=== PATIENT | male | born 1980 | race African-American/Black ===

== ENCOUNTER 2016-12-18 15:07 | Emergency (ER) | payer OTHER ==
[2016-12-18 15:40] VITALS: BP 129/94; PULSE 100; RESP 20; TEMP 98.8
--- NOTE | 2016-12-18 15:55 | ED ---
ENT HPI - General Chief complaint: ENT Stated complaint: ENT Time Seen by Provider: 12/18/16 15:40 Source: patient, RN notes reviewed Mode of arrival: ambulatory Limitations: no limitations - History of Present Illness Initial comments: Is a 36-year-old male with a presentation with complaints of sore throat for about a week he also developed fevers chills and sweats especially at night he started developing right sided ear pain yesterday. He does have slight cough with yellow phlegm no chest pain abdominal pain nausea vomiting or other symptoms. No overt rhinorrhea. MD complaint: sore throat, ear pain - Related Data Home Medications Medication Instructions Recorded Confirmed amLODIPine BESYLATE [Norvasc] 5 mg PO DAILY 08/13/16 08/13/16 Previous Rx's Medication Instructions Recorded Erythromycin Ophth Oint [Romycin 1 applic LEFT EYE QID 10 Days 08/13/16 Ophth Oint] Amoxicillin 500 mg PO Q8HR #30 ml 12/18/16 Ibuprofen [Motrin] 800 mg PO Q6HR PRN #20 tab 12/18/16 Allergies Allergy/AdvReac Type Severity Reaction Status Date / Time No Known Allergies Allergy Verified 12/18/16 15:40 Review of Systems ROS Statement: Those systems with pertinent positive or pertinent negative responses have been documented in the HPI. ROS Other: All systems not noted in ROS Statement are negative. Past Medical History Past Medical History: No Reported History, Hypertension Additional Past Medical History / Comment(s): ABSCESS History of Any Multi-Drug Resistant Organisms: None Reported Additional Past Surgical History / Comment(s): LEFT LEG SURGERY R/T TRAUMA, jaw Past Anesthesia/Blood Transfusion Reactions: No Reported Reaction Past Psychological History: No Psychological Hx Reported Smoking Status: Never smoker Past Alcohol Use History: Daily Past Drug Use History: None Reported - Past Family History Mother Family Medical History: Diabetes Mellitus Additional Family Medical History / Comment(s): from sudhakar johnsons syndrome Father Family Medical History: Diabetes Mellitus Additional Family Medical History / Comment(s): from dm complications General Exam - General Exam Comments Initial Comments: This is a well-developed well-nourished awake alert oriented 3 male Limitations: no limitations General appearance: alert, in no apparent distress Head exam: Present: atraumatic, normocephalic, normal inspection Eye exam: Present: normal appearance, PERRL, EOMI. Absent: scleral icterus, conjunctival injection, periorbital swelling ENT exam: Present: mucous membranes moist, other Neck exam: Present: tenderness (Tender lymphadenopathy in the right), lymphadenopathy Respiratory exam: Present: normal lung sounds bilaterally. Absent: respiratory distress, wheezes, rales, rhonchi, stridor Cardiovascular Exam: Present: regular rate, normal rhythm, normal heart sounds. Absent: systolic murmur, diastolic murmur, rubs, gallop, clicks Extremities exam: Present: normal inspection, full ROM, normal capillary refill. Absent: tenderness, pedal edema, joint swelling, calf tenderness Back exam: Present: normal inspection Neurological exam: Present: alert, oriented X3, CN II-XII intact Psychiatric exam: Present: normal affect, normal mood Skin exam: Present: warm, dry, intact, normal color. Absent: rash Course Vital Signs 12/18/16 15:37 Temperature 98.8 F Pulse Rate 100 Respiratory 20 Rate Blood Pressure 129/94 O2 Sat by Pulse 97 Oximetry Medical Decision Making - Medical Decision Making The presentation is consistent with otitis media and tonsillitis patient be placed on appropriate medication. Disposition Clinical Impression: Tonsillitis, Otitis media Disposition: HOME SELF-CARE Condition: Good Instructions: Earache (ED), Tonsillitis (ED), Otitis Media (ED) Prescriptions: Amoxicillin 500 mg PO Q8HR #30 ml Ibuprofen [Motrin] 800 mg PO Q6HR PRN #20 tab PRN Reason: Pain
== END 2016-12-18 16:02 | disposition home or self-care (01) ==
LOC: EC 15:07
DX: J03.90 Acute tonsillitis, unspecified (principal); H66.90 Otitis media, unspecified, unspecified ear; I10 Essential (primary) hypertension; Z79.899 Other long term (current) drug therapy
CPT/HCPCS: 99282

== ENCOUNTER 2017-05-28 05:36 | Emergency (ER) | payer OTHER ==
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
--- NOTE | 2017-05-28 08:14 | XR ---
Right hand HISTORY: Pain 3 views of the right hand No comparisons Bone mineralization, joint spaces and alignment are maintained IMPRESSION: No fracture or dislocation.
--- NOTE | 2017-05-28 08:18 | XR ---
Left RIBS with PA chest x-ray HISTORY: Pain Frontal view of the chest and 4 views of the left ribs submitted and correlated to prior chest x-ray 06/01/2016 Scoliotic curvature of the spine is again noted. Chest shows no airspace disease, pneumothorax, or pl eural effusion. Cardiomediastinal silhouette, pulmonary vascularity and sheba are stable. There is no evident displaced rib fracture. IMPRESSION: Scoliosis, bone scan may be of increased sensitivity.
[2017-05-28] MEDS ORDERED: DIPH,PERTUS(ACELL)TETVAC-LF 0.5 ML VIAL IM ONE (08:24)
[2017-05-28 08:50] VITALS: BP 125/83; PULSE 90; RESP 18; TEMP 98
== END 2017-05-28 08:56 | disposition home or self-care (01) ==
LOC: EC 05:36
DX: S20.212A Contusion of left front wall of thorax, initial encounter (principal); S60.221A Contusion of right hand, initial encounter; S66.801A Unspecified injury of other specified muscles, fascia and tendons at wrist and hand level, right hand, initial encounter; R40.2412 Glasgow coma scale score 13-15, at arrival to emergency department; Z23 Encounter for immunization; V18.4XXA Pedal cycle driver injured in noncollision transport accident in traffic accident, initial encounter; Y92.410 Unspecified street and highway as the place of occurrence of the external cause; Y93.89 Activity, other specified
CPT/HCPCS: 90471; 90715; 99283

== ENCOUNTER 2017-11-05 12:04 | Emergency (ER) | payer OTHER ==
[2017-11-05 12:35] VITALS: BP 129/97; PULSE 90; RESP 16; TEMP 98.2
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
== END 2017-11-05 13:40 | disposition home or self-care (01) ==
LOC: EC 12:04
DX: B86 Scabies (principal); J39.2 Other diseases of pharynx
CPT/HCPCS: 70360; 99283

== ENCOUNTER 2018-02-22 20:10 | Emergency (ER) | payer OTHER ==
[2018-02-22 20:23] VITALS: RESP 18; TEMP 97.3
[2018-02-22] MEDS ORDERED: DIPH,PERTUS(ACELL)TETVAC-LF 0.5 ML VIAL IM ONE (20:41)
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
[2018-02-22 20:59] VITALS: BP 138/87; PULSE 93
[2018-02-22 20:59] LABS: HGB 13.6 gm/dL (13.0-17.5); MCH 29.4 pg (25.0-35.0); MCHC 32.3 g/dL (31.0-37.0); MCV 90.8 fL (80.0-100.0); Mean Platelet Volume 8.6; Platelet Count 134 k/uL (150-450); RBC 4.62 m/uL (4.30-5.90); RDW 12.9 % (11.5-15.5); WBC 4.7 k/uL (3.8-10.6)
== END 2018-02-22 21:19 | disposition home or self-care (01) ==
LOC: EC 20:10
DX: S01.512A Laceration without foreign body of oral cavity, initial encounter (principal); D69.6 Thrombocytopenia, unspecified; Z23 Encounter for immunization; W50.0XXA Accidental hit or strike by another person, initial encounter
CPT/HCPCS: 36415; 85027; 90471; 90715; 99283

== ENCOUNTER → 2018-03-03 | Outpatient (CLI) | payer OTHER ==
--- NOTE | 2018-03-03 16:08 | CT ---
EXAMINATION TYPE: CT abdomen pelvis w con DATE OF EXAM: 03/03/2018 COMPARISON: NONE HISTORY: RLQ to flank pain CT DLP: 502.9 mGycm CONTRAST: CT scan of the abdomen and pelvis is performed with Oral Contrast and with IV Contrast, patient injec kathy with 100 mL of Isovue 300. FINDINGS: LUNG BASES-: No visible nodule. No infiltrate. LIVER/GB: No calcified gallstones. No space occupying hepatic lesion. Biliary tree is of normal ca liber. Mild hepatic steatosis noted. PANCREAS: No inflammation. No distinct mass. SPLEEN: No splenic enlargement. No lesion seen. ADRENALS: No nodule. No thickening. KIDNEYS/BLADDER: No hydronephrosis. No nephrolithiasis. No distinct renal mass. Urinary bladder is not ideally distended however there does appear to be a mild degree of wall thickening. Correlate fo r cystitis. BOWEL: Normal appendix. Normal bowel caliber. No inflammation. GENITAL ORGANS: No gross abnormality. LYMPH NODES: No greater than 1cm abdominal or pelvic lymph nodes are appreciated. AORTA: No significant abnormality. OSSEOUS STRUCTURES: No significant abnormality is seen. OTHER: No significant additional abnormality is seen. IMPRESSION: 1. Correlate for mild urinary bladder cystitis. 2. Fatty liver.
== END | disposition home or self-care (01) ==
LOC: RADCTMAIN 14:10
PROVIDERS: ATTEND Internal Medicine
DX: K76.0 Fatty (change of) liver, not elsewhere classified (principal); R10.31 Right lower quadrant pain
CPT/HCPCS: 74177; Q9967

== ENCOUNTER 2018-06-10 12:01 | Emergency (ER) | payer OTHER ==
[2018-06-10 12:14] VITALS: RESP 18
[2018-06-10 12:59] LABS: Basophils % (A) 1 %; Eosinophils # (A) 0.1 k/uL (0-0.7); Eosinophils % (A) 2 %; HCT 32.5 % (39.0-53.0); HGB 10.3 gm/dL (13.0-17.5); Lymphocytes # (A) 1.5 k/uL (1.0-4.8); Lymphocytes % (A) 34 %; MCH 31.4 pg (25.0-35.0); MCHC 31.5 g/dL (31.0-37.0); MCV 99.6 fL (80.0-100.0); Macrocytosis Slight; Mean Platelet Volume 9.1; Monocytes # (A) 0.4 k/uL (0-1.0); Monocytes % (A) 9 %; Neutrophils # (A) 2.3 k/uL (1.3-7.7); Neutrophils % (A) 52 %; Platelet Count 142 k/uL (150-450); RBC 3.27 m/uL (4.30-5.90); RDW 15.7 % (11.5-15.5); WBC 4.4 k/uL (3.8-10.6)
[2018-06-10 13:14] LABS: ALT 150 U/L (21-72); AST 358 U/L (17-59); Alkaline Phosphatase 261 U/L (38-126); Anion Gap 11 mmol/L; Blood Urea Nitrogen 13 mg/dL (9-20); Carbon Dioxide 29 mmol/L (22-30); Chloride 100 mmol/L (98-107); Glucose 91 mg/dL (74-99); Lipase 229 U/L (23-300); Potassium 4.6 mmol/L (3.5-5.1); Sodium 140 mmol/L (137-145); Total Bilirubin 1.1 mg/dL (0.2-1.3); Total Protein 8.5 g/dL (6.3-8.2)
--- NOTE | 2018-06-10 13:33 | ED ---
Recheck HPI - General Chief Complaint: Recheck/Abnormal Lab/Rx Stated Complaint: EYES YELLOW Time Seen by Provider: 06/10/18 12:16 Source: patient, RN notes reviewed Mode of arrival: ambulatory Limitations: no limitations - History of Present Illness Initial Comments: 37-year-old male presents emergency Department with concerns of possible hepatitis. Patient states that he felt his eyes look more yellow than usual. Patient states that he does drink alcohol on a regular basis states he drinks 3- 4 told was a day. Patient denies any IV drug use. Patient states that he has no other symptoms denies any nausea, vomiting, diarrhea, constipation, headache , dizziness, chest pain or shortness breath. Patient states that he has no history of hepatitis Kory states she's been told he has fatty liver disease. - Related Data Home Medications Medication Instructions Recorded Confirmed No Known Home Medications 06/10/18 06/10/18 Allergies Allergy/AdvReac Type Severity Reaction Status Date / Time No Known Allergies Allergy Verified 06/10/18 12:22 Review of Systems ROS Statement: Those systems with pertinent positive or pertinent negative responses have been documented in the HPI. ROS Other: All systems not noted in ROS Statement are negative. Past Medical History Past Medical History: Hypertension Additional Past Medical History / Comment(s): ABSCESS History of Any Multi-Drug Resistant Organisms: None Reported Additional Past Surgical History / Comment(s): LEFT LEG SURGERY R/T TRAUMA, jaw Past Anesthesia/Blood Transfusion Reactions: No Reported Reaction Past Psychological History: No Psychological Hx Reported Smoking Status: Never smoker Past Alcohol Use History: Daily Past Drug Use History: None Reported - Past Family History Mother Family Medical History: Diabetes Mellitus Additional Family Medical History / Comment(s): from sduhakar johnsons syndrome Father Family Medical History: Diabetes Mellitus Additional Family Medical History / Comment(s): from dm complications General Exam Limitations: no limitations General appearance: alert, in no apparent distress Head exam: Present: atraumatic, normocephalic, normal inspection Eye exam: Present: normal appearance, PERRL, EOMI. Absent: scleral icterus, conjunctival injection, periorbital swelling ENT exam: Present: normal exam, normal oropharynx, mucous membranes moist Neck exam: Present: normal inspection, full ROM. Absent: tenderness, meningismus, lymphadenopathy Respiratory exam: Present: normal lung sounds bilaterally. Absent: respiratory distress, wheezes, rales, rhonchi, stridor Cardiovascular Exam: Present: regular rate, normal rhythm, normal heart sounds. Absent: systolic murmur, diastolic murmur, rubs, gallop, clicks GI/Abdominal exam: Present: soft, normal bowel sounds. Absent: distended, tenderness, guarding, rebound, rigid Skin exam: Present: warm, dry, intact, normal color. Absent: rash Course Vital Signs 06/10/18 12:12 Temperature 98.2 F Pulse Rate 86 Respiratory 18 Rate Blood Pressure 122/85 O2 Sat by Pulse 99 Oximetry Medical Decision Making - Medical Decision Making 37 show male presents emergency department for possible jaundice. Patient's bilirubin is within normal limits though is found to have elevation of his AST and ALT. This most likely is related to alcoholic hepatitis is a daily drinker. He has a negative hepatitis 8 this time. He denies IV drug use. There is pending hepatitis c. Patient did have ultrasound which showed a large gallbladder possible sludge though is having no pain at this time. Patient's advised to seek alcohol rehab. Patient will follow-up with GI return parameters were discussed. - Lab Data Result diagrams: 06/10/18 12:49 06/10/18 12:49 Lab Results 06/10/18 06/10/18 06/10/18 Range/Units 12:45 12:49 12:49 WBC 4.4 (3.8-10.6) k/uL RBC 3.27 L (4.30-5.90) m/uL Hgb 10.3 L (13.0-17.5) gm/dL Hct 32.5 L (39.0-53.0) % MCV 99.6 (80.0-100.0) fL MCH 31.4 (25.0-35.0) pg MCHC 31.5 (31.0-37.0) g/dL RDW 15.7 H (11.5-15.5) % Plt Count 142 L (150-450) k/uL Neutrophils % 52 % Lymphocytes % 34 % Monocytes % 9 % Eosinophils % 2 % Basophils % 1 % Neutrophils # 2.3 (1.3-7.7) k/uL Lymphocytes # 1.5 (1.0-4.8) k/uL Monocytes # 0.4 (0-1.0) k/uL Eosinophils # 0.1 (0-0.7) k/uL Basophils # 0.0 (0-0.2) k/uL Macrocytosis Slight PT 11.4 (9.0-12.0) sec INR 1.2 H (<1.2) APTT 23.9 (22.0-30.0) sec Sodium 140 (137-145) mmol/L Potassium 4.6 (3.5-5.1) mmol/L Chloride 100 (98-107) mmol/L Carbon Dioxide 29 (22-30) mmol/L Anion Gap 11 mmol/L BUN 13 (9-20) mg/dL Creatinine 0.76 (0.66-1.25) mg/dL Est GFR (CKD-EPI)AfAm >90 (>60 ml/min/1.73 sqM) Est GFR (CKD-EPI)NonAf >90 (>60 ml/min/1.73 sqM) Glucose 91 (74-99) mg/dL Calcium 9.0 (8.4-10.2) mg/dL Total Bilirubin 1.1 (0.2-1.3) mg/dL AST 358 H (17-59) U/L ALT 150 H (21-72) U/L Alkaline Phosphatase 261 H (38-126) U/L Total Protein 8.5 H (6.3-8.2) g/dL Albumin 4.0 (3.5-5.0) g/dL Lipase 229 (23-300) U/L Hepatitis A IgM Ab 06/10/18 Range/Units 12:56 WBC (3.8-10.6) k/uL RBC (4.30-5.90) m/uL Hgb (13.0-17.5) gm/dL Hct (39.0-53.0) % MCV (80.0-100.0) fL MCH (25.0-35.0) pg MCHC (31.0-37.0) g/dL RDW (11.5-15.5) % Plt Count (150-450) k/uL Neutrophils % % Lymphocytes % % Monocytes % % Eosinophils % % Basophils % % Neutrophils # (1.3-7.7) k/uL Lymphocytes # (1.0-4.8) k/uL Monocytes # (0-1.0) k/uL Eosinophils # (0-0.7) k/uL Basophils # (0-0.2) k/uL Macrocytosis PT (9.0-12.0) sec INR (<1.2) APTT (22.0-30.0) sec Sodium (137-145) mmol/L Potassium (3.5-5.1) mmol/L Chloride (98-107) mmol/L Carbon Dioxide (22-30) mmol/L Anion Gap mmol/L BUN (9-20) mg/dL Creatinine (0.66-1.25) mg/dL Est GFR (CKD-EPI)AfAm (>60 ml/min/1.73 sqM) Est GFR (CKD-EPI)NonAf (>60 ml/min/1.73 sqM) Glucose (74-99) mg/dL Calcium (8.4-10.2) mg/dL Total Bilirubin (0.2-1.3) mg/dL AST (17-59) U/L ALT (21-72) U/L Alkaline Phosphatase (38-126) U/L Total Protein (6.3-8.2) g/dL Albumin (3.5-5.0) g/dL Lipase (23-300) U/L Hepatitis A IgM Ab NEGATIVE Disposition Clinical Impression: Alcoholic hepatitis Disposition: HOME SELF-CARE Condition: Stable Instructions: Alcoholic Hepatitis (ED) Additional Instructions: Please return to the Emergency Department if symptoms worsen or any other concerns. Is patient prescribed a controlled substance at d/c from ED?: No Referrals: Meaghan Davies MD [Primary Care Provider] - 1-2 days Gonzalo Jules MD [STAFF PHYSICIAN] - 1-2 days Time of Disposition: 14:36
[2018-06-10 13:49] LABS: Hepatitis A AB IgM Index 0.02; Hepatitis A Antibody IgM NEGATIVE
[2018-06-10 13:59] LABS: INR 1.2 (<1.2); Partial Thromboplastin Time 23.9 sec (22.0-30.0); Prothrombin Time 11.4 sec (9.0-12.0)
--- NOTE | 2018-06-10 14:23 | US ---
EXAMINATION TYPE: US gallbladder DATE OF EXAM: 06/10/2018 COMPARISON: Previous dated 10/08/2015 ultrasound abdomen limited, CT abdomen pelvis 03/03/2018 CLINICAL HISTORY: Pain. EXAM MEASUREMENTS: Liver Length: 14.5 cm Gallbladder Wall: 0.1 cm CBD: 0.2 cm Right Kidney: 11.4 x 4.2 x 5.4 cm Pancreas: Obscured by bowel gas Liver: Increased attenuation, decreased visualization of vessels suggestive of fatty infiltrate Gallbladder: appears large with some dependant sludge Evidence for sonographic Hatch's sign: no CBD: wnl Right Kidney: wnl , cortical medullary differentiation is maintained. There is no ascites. IMPRESSION: Changes of hepatic steatosis are again noted. Probable tumefactive sludge within the gall bladder, gallbladder is somewhat enlarged. Hepatobiliary scan may be of benefit.
[2018-06-10 15:06] VITALS: BP 125/61; PULSE 68; TEMP 97
[2018-06-10 18:20] LABS: Hepatitis B Core IgM Non-Reactive (Non-Reactive)
== END 2018-06-10 15:06 | disposition home or self-care (01) ==
LOC: EC 12:01
DX: K70.10 Alcoholic hepatitis without ascites (principal)
CPT/HCPCS: 36415; 76705; 80053; 80074; 83690; 85025; 85610; 85730; 99283

== ENCOUNTER 2018-06-11 18:07 | Emergency (ER) | payer OTHER ==
[2018-06-11 18:14] VITALS: BP 114/73; PULSE 100; RESP 20; TEMP 98.7
--- NOTE | 2018-06-11 18:48 | ED ---
Wound/Laceration HPI - General Chief Complaint: Wound/Laceration Stated Complaint: Lac/Infection on toe Time Seen by Provider: 06/11/18 18:17 Source: patient, RN notes reviewed Mode of arrival: ambulatory Limitations: no limitations - History of Present Illness Initial Comments: 37yo with cc of left third toe pain/laceration. Pt stated that the night after a green party, hanging around girls he woke up with pain in left third toe and cut all the way around the toe. Didnt know how he got it. Thought it would get better, when the pain persisted, increasing for the past 2 days pt presented for evaluation. Pt states tetanus UTD. Pt denied fever, chills, night sweats, loss of ROM of toe, loss of sensation toe. Remainder ROS (-). - Related Data Previous Rx's Medication Instructions Recorded Cephalexin [Keflex] 500 mg PO Q8HR 5 Days #15 cap 06/11/18 Allergies Allergy/AdvReac Type Severity Reaction Status Date / Time No Known Allergies Allergy Verified 06/11/18 18:14 Review of Systems ROS Statement: Those systems with pertinent positive or pertinent negative responses have been documented in the HPI. ROS Other: All systems not noted in ROS Statement are negative. Constitutional: Denies: fever, chills, night sweats Eyes: Denies: vision change Respiratory: Denies: cough, dyspnea Cardiovascular: Denies: chest pain, palpitations, orthopnea Gastrointestinal: Denies: abdominal pain, nausea, vomiting Genitourinary: Denies: urgency, dysuria Musculoskeletal: Reports: myalgia Skin: Reports: as per HPI, lesions Past Medical History Past Medical History: Hypertension Additional Past Medical History / Comment(s): ABSCESS History of Any Multi-Drug Resistant Organisms: None Reported Additional Past Surgical History / Comment(s): LEFT LEG SURGERY R/T TRAUMA, jaw Past Anesthesia/Blood Transfusion Reactions: No Reported Reaction Past Psychological History: No Psychological Hx Reported Smoking Status: Never smoker Past Alcohol Use History: Daily Past Drug Use History: None Reported - Past Family History Mother Family Medical History: Diabetes Mellitus Additional Family Medical History / Comment(s): from sudhakar johnsons syndrome Father Family Medical History: Diabetes Mellitus Additional Family Medical History / Comment(s): from dm complications General Exam - General Exam Comments Initial Comments: General: The patient is awake and alert, in no distress, and does not appear acutely ill. Eye: Pupils are equal, round and reactive to light, extra-ocular movements are intact. No nystagmus. There is normal conjunctiva bilaterally. No signs of icterus. Ears, nose, mouth and throat: There are moist mucous membranes and no oral lesions. Neck: The neck is supple, there is no tenderness or JVD. Cardiovascular: There is a regular rate and rhythm. No murmur, rub or gallop is appreciated. Respiratory: Lungs are clear to auscultation, respirations are non-labored, breath sounds are equal. No wheezes, stridor, rales, or rhonchi. Musculoskeletal: full ROM at DIP and PIP joint of the left third toe, no erythema. There is a hair wrapped around toe causing superficial laceration. Capillary refill <2seconds, no discoloration of the toe. No warmth to palpation. Neurological: A&O x 3. CN II-XII intact, There are no obvious motor or sensory deficits. Coordination appears grossly intact. Speech is normal. Skin: Skin is warm and dry and no rashes or lesions are noted. Psychiatric: Cooperative, appropriate mood & affect, normal judgment. Limitations: no limitations Course Vital Signs 06/11/18 06/11/18 18:12 19:08 Temperature 98.7 F 98.7 F Pulse Rate 100 100 Respiratory 20 20 Rate Blood Pressure 114/73 114/73 O2 Sat by Pulse 98 98 Oximetry Medical Decision Making - Medical Decision Making Hair tournaquette cut from toe. superficial laceration cleansed with idodine and sterile water. Bacitracin applied and wound covered with sterile bandage. Pt neurovascularly intact. No signs of secondary infection at this time, however given laceration is on the foot and was no treated for past 3 days. Pt give watch and wait ABX only to be taken if signs of infection arise and these were discussed with pt. Pt agreed with plan. Pt discharged in stable condition. Case discussed with Dr. Madrid prior to d/c. Disposition Clinical Impression: Hair tourniquet of toe Disposition: HOME SELF-CARE Condition: Good Additional Instructions: Please use medication if develop signs and symptoms discussed. Please follow- up with family doctor in the next 2 days of symptoms have not improved. Please return to emergency room if the symptoms increase or worsen or for any other concerns. Prescriptions: Cephalexin [Keflex] 500 mg PO Q8HR 5 Days #15 cap Is patient prescribed a controlled substance at d/c from ED?: No Referrals: Meaghan Davies MD [Primary Care Provider] - 1-2 days Time of Disposition: 18:47
== END 2018-06-11 19:08 | disposition home or self-care (01) ==
LOC: EC 18:07
DX: S90.445A External constriction, left lesser toe(s), initial encounter (principal); W49.01XA Hair causing external constriction, initial encounter
CPT/HCPCS: 99282

== ENCOUNTER 2018-06-13 01:28 | Emergency (ER) | payer OTHER ==
[2018-06-13 01:57] VITALS: RESP 18
[2018-06-13] MEDS ORDERED: SODIUM CHLORIDE 0.9% 1,000 ML IV STA (02:31)
[2018-06-13 02:57] LABS: Glucose,Whole Blood 107 mg/dL (75-99)
--- NOTE | 2018-06-13 02:58 | ED ---
Seizure HPI - General Chief Complaint: Seizure Stated Complaint: Seizures Time Seen by Provider: 06/13/18 01:41 Source: patient Mode of arrival: ambulatory Limitations: no limitations - History of Present Illness Initial Comments: 37-year-old male patient presents to the emergency department today for evaluation after having 2 episodes of what sounded like seizures. Patient states that his boss witnessed the first episode this morning, states that his limbs went numb and then he became unaware for sure. When he came to his boss told him that he had generalized shaking. Patient states that later the afternoon around 6:00 he was walking around the yard feeling confused and then tripped over the dog and had onset of generalized shaking again. Patient states that the episodes lasted for a couple minutes at most. Patient states afterwards he was foggy with some confusion for a couple of hours. Patient does admit to drinking 4-5 24 oz beers per day, occasionally drinks liquor. Patient states that he was seen and evaluated here a couple of days ago and told that he had elevated liver enzymes so he quit drinking for the last 2 days. Patient does admit to drinking alcohol today to help improve his symptoms. Patient states he is currently feeling well. He denies any current headache, dizziness, blurred vision, or double vision. Denies any numbness or tingling to his arms or legs. Denies any weakness. Denies any history of seizures. Patient denies any recent rash, fever, chills, shortness breath, nausea, vomiting, diarrhea, constipation, back pain, hematuria, dysuria, urinary urgency, urinary frequency, or any other complaints. - Related Data Previous Rx's Medication Instructions Recorded Cephalexin [Keflex] 500 mg PO Q8HR 5 Days #15 cap 06/11/18 chlordiazePOXIDE HCl [Librium] 25 mg PO DIRECTED #15 capsule 06/13/18 Allergies Allergy/AdvReac Type Severity Reaction Status Date / Time No Known Allergies Allergy Verified 06/13/18 03:09 Review of Systems ROS Statement: Those systems with pertinent positive or pertinent negative responses have been documented in the HPI. ROS Other: All systems not noted in ROS Statement are negative. Past Medical History Past Medical History: Hypertension Additional Past Medical History / Comment(s): ABSCESS History of Any Multi-Drug Resistant Organisms: None Reported Additional Past Surgical History / Comment(s): LEFT LEG SURGERY R/T TRAUMA, jaw Past Anesthesia/Blood Transfusion Reactions: No Reported Reaction Past Psychological History: No Psychological Hx Reported Smoking Status: Never smoker Past Alcohol Use History: Daily Past Drug Use History: None Reported - Past Family History Mother Family Medical History: Diabetes Mellitus Additional Family Medical History / Comment(s): from sudhakar johnsons syndrome Father Family Medical History: Diabetes Mellitus Additional Family Medical History / Comment(s): from dm complications General Exam Limitations: no limitations General appearance: alert, in no apparent distress, other (This is a well- developed, well-nourished adult male patient in no acute distress. Vital signs upon presentation are temperature 98.3F, pulse 100, respirations 20, blood pressure 123/78, pulse ox 100% on room air.) Eye exam: Present: normal appearance, PERRL, EOMI. Absent: scleral icterus, conjunctival injection, nystagmus, periorbital swelling ENT exam: Present: normal exam, normal oropharynx, mucous membranes moist Neck exam: Present: normal inspection. Absent: tenderness, meningismus, lymphadenopathy Respiratory exam: Present: normal lung sounds bilaterally. Absent: respiratory distress, wheezes, rales, rhonchi, stridor Cardiovascular Exam: Present: regular rate, normal rhythm, normal heart sounds. Absent: systolic murmur, diastolic murmur, rubs, gallop, clicks GI/Abdominal exam: Present: soft, normal bowel sounds. Absent: distended, tenderness, guarding, rebound, rigid Neurological exam: Present: alert, oriented X3, CN II-XII intact Expanded Speech: Present: fluid speech Cranial nerves: EOM's Intact: Normal, Nystagmus: Normal Motor strength exam: RUE: 5, LUE: 5, RLE: 5, LLE: 5 Psychiatric exam: Present: normal affect Skin exam: Present: warm Course Vital Signs 06/13/18 06/13/18 06/13/18 01:31 01:55 02:55 Temperature 98.3 F Pulse Rate 100 97 95 Respiratory 20 18 18 Rate Blood Pressure 123/78 116/71 107/68 O2 Sat by Pulse 100 100 97 Oximetry Medical Decision Making - Medical Decision Making 37-year-old male patient who admits to chronic alcohol abuse presents to the emergency department today for complaints after having what sounded like 2 seizures throughout the day today. Patient did admit that he had stopped drinking over the last 2 days due to a recent diagnosis of alcoholic hepatitis. Physical examination upon arrival was relatively unremarkable. Patient is neurologically intact. Labs reviewed and did reveal elevated AST at 177, ALT at 106, alk phos 298, ammonia 46. Alcohol level was 180. Patient's liver enzymes are improved from his visit 2 days ago. Patient is negative and the drug screen. Did discuss findings and results with the patient. We did discuss that his symptoms are most likely related to alcohol withdrawal seizures. Did recommend the patient stop drinking given his liver enzymes. Patient did admit that he would like help quitting drinking. States that with his job inpatient rehab is not a option at this time. We did discussed use of Librium for prevention of seizures and help with withdrawal symptoms. He does agree to receive the prescription. He has instructed not to drink while taking this medication. He was given list of outpatient alcohol referrals. He is instructed to follow-up with his primary care physician Dr. Hurd for further evaluation and monitoring of liver enzymes. Return parameters were discussed in detail. He verbalizes understanding and agrees with this plan. - Lab Data Result diagrams: 06/13/18 02:54 06/13/18 02:54 Lab Results 06/13/18 06/13/18 06/13/18 Range/Units 02:54 02:54 02:54 WBC 5.7 (3.8-10.6) k/uL RBC 3.24 L (4.30-5.90) m/uL Hgb 10.4 L (13.0-17.5) gm/dL Hct 33.4 L (39.0-53.0) % MCV 103.1 H (80.0-100.0) fL MCH 32.1 (25.0-35.0) pg MCHC 31.2 (31.0-37.0) g/dL RDW 15.5 (11.5-15.5) % Plt Count 147 L (150-450) k/uL Neutrophils % 52 % Lymphocytes % 33 % Monocytes % 10 % Eosinophils % 2 % Basophils % 0 % Neutrophils # 3.0 (1.3-7.7) k/uL Lymphocytes # 1.9 (1.0-4.8) k/uL Monocytes # 0.6 (0-1.0) k/uL Eosinophils # 0.1 (0-0.7) k/uL Basophils # 0.0 (0-0.2) k/uL Macrocytosis Moderate Sodium 140 (137-145) mmol/L Potassium 4.2 (3.5-5.1) mmol/L Chloride 104 (98-107) mmol/L Carbon Dioxide 25 (22-30) mmol/L Anion Gap 11 mmol/L BUN 10 (9-20) mg/dL Creatinine 0.80 (0.66-1.25) mg/dL Est GFR (CKD-EPI)AfAm >90 (>60 ml/min/1.73 sqM) Est GFR (CKD-EPI)NonAf >90 (>60 ml/min/1.73 sqM) Glucose 95 (74-99) mg/dL POC Glucose (mg/dL) (75-99) mg/dL POC Glu Type Bar And Segment Assembler ID Calcium 9.5 (8.4-10.2) mg/dL Total Bilirubin 1.3 (0.2-1.3) mg/dL AST 177 H (17-59) U/L ALT 106 H (21-72) U/L Alkaline Phosphatase 298 H (38-126) U/L Ammonia 46 H (<30) umol/L Total Protein 8.5 H (6.3-8.2) g/dL Albumin 4.1 (3.5-5.0) g/dL Urine Color Urine Appearance (Clear) Urine pH (5.0-8.0) Ur Specific [place] (1.001-1.035) Urine Protein (Negative) Urine Glucose (UA) (Negative) Urine Ketones (Negative) Urine Blood (Negative) Urine Nitrite (Negative) Urine Bilirubin (Negative) Urine Urobilinogen (<2.0) mg/dL Ur Leukocyte Esterase (Negative) Urine Opiates Screen (NotDetected) Ur Oxycodone Screen (NotDetected) Urine Methadone Screen (NotDetected) Ur Propoxyphene Screen (NotDetected) Ur Barbiturates Screen (NotDetected) U Tricyclic Antidepress (NotDetected) Ur Phencyclidine Scrn (NotDetected) Ur Amphetamines Screen (NotDetected) U Methamphetamines Scrn (NotDetected) U Benzodiazepines Scrn (NotDetected) Urine Cocaine Screen (NotDetected) U Marijuana (THC) Screen (NotDetected) Serum Alcohol 180 mg/dL 06/13/18 06/13/18 Range/Units 02:54 02:54 WBC (3.8-10.6) k/uL RBC (4.30-5.90) m/uL Hgb (13.0-17.5) gm/dL Hct (39.0-53.0) % MCV (80.0-100.0) fL MCH (25.0-35.0) pg MCHC (31.0-37.0) g/dL RDW (11.5-15.5) % Plt Count (150-450) k/uL Neutrophils % % Lymphocytes % % Monocytes % % Eosinophils % % Basophils % % Neutrophils # (1.3-7.7) k/uL Lymphocytes # (1.0-4.8) k/uL Monocytes # (0-1.0) k/uL Eosinophils # (0-0.7) k/uL Basophils # (0-0.2) k/uL Macrocytosis Sodium (137-145) mmol/L Potassium (3.5-5.1) mmol/L Chloride (98-107) mmol/L Carbon Dioxide (22-30) mmol/L Anion Gap mmol/L BUN (9-20) mg/dL Creatinine (0.66-1.25) mg/dL Est GFR (CKD-EPI)AfAm (>60 ml/min/1.73 sqM) Est GFR (CKD-EPI)NonAf (>60 ml/min/1.73 sqM) Glucose (74-99) mg/dL POC Glucose (mg/dL) 107 H (75-99) mg/dL POC Glu Type Bar And Segment Assembler ID Juanita Bullock Calcium (8.4-10.2) mg/dL Total Bilirubin (0.2-1.3) mg/dL AST (17-59) U/L ALT (21-72) U/L Alkaline Phosphatase (38-126) U/L Ammonia (<30) umol/L Total Protein (6.3-8.2) g/dL Albumin (3.5-5.0) g/dL Urine Color Colorless Urine Appearance Clear (Clear) Urine pH 5.5 (5.0-8.0) Ur Specific [place] 1.002 (1.001-1.035) Urine Protein Negative (Negative) Urine Glucose (UA) Negative (Negative) Urine Ketones Negative (Negative) Urine Blood Negative (Negative) Urine Nitrite Negative (Negative) Urine Bilirubin Negative (Negative) Urine Urobilinogen <2.0 (<2.0) mg/dL Ur Leukocyte Esterase Negative (Negative) Urine Opiates Screen Not Detected (NotDetected) Ur Oxycodone Screen Not Detected (NotDetected) Urine Methadone Screen Not Detected (NotDetected) Ur Propoxyphene Screen Not Detected (NotDetected) Ur Barbiturates Screen Not Detected (NotDetected) U Tricyclic Antidepress Not Detected (NotDetected) Ur Phencyclidine Scrn Not Detected (NotDetected) Ur Amphetamines Screen Not Detected (NotDetected) U Methamphetamines Scrn Not Detected (NotDetected) U Benzodiazepines Scrn Not Detected (NotDetected) Urine Cocaine Screen Not Detected (NotDetected) U Marijuana (THC) Screen Not Detected (NotDetected) Serum Alcohol mg/dL - EKG Data -: EKG Interpreted by Me EKG Comments: EKG obtained at 0306 shows normal sinus rhythm with a ventricular rate of 94, [place] interval 124, QRS duration 88, QT 360, QTC 450. No evidence of ST elevation or depression. Disposition Clinical Impression: Alcohol withdrawal seizure Disposition: HOME SELF-CARE Condition: Good Instructions: Alcohol Withdrawal (ED) Additional Instructions: Take medication as directed. Follow up with outpatient alcohol program. Follow up with your primary care physician to monitor liver function/enzymes. Return to the emergency department for any new, worsening, or concerning. Prescriptions: chlordiazePOXIDE HCl [Librium] 25 mg PO DIRECTED #15 capsule Is patient prescribed a controlled substance at d/c from ED?: No Referrals: Meaghan Davies MD [Primary Care Provider] - 1-2 days Time of Disposition: 04:07
[2018-06-13 03:08] LABS: Appearance,Urine Clear (Clear); Bilirubin,Urine Negative (Negative); Blood,Urine Negative (Negative); Color,Urine Colorless; Glucose,Urine (UA) Negative (Negative); Ketones,Urine Negative (Negative); Leukocyte Esterase,Urine Negative (Negative); Nitrite,Urine Negative (Negative); PH, Urine 5.5 (5.0-8.0); Protein,Urine Negative (Negative); Specific Gravity,Urine 1.002 (1.001-1.035); Urobilinogen,Urine <2.0 mg/dL (<2.0)
[2018-06-13 03:13] LABS: Basophils % (A) 0 %; Eosinophils # (A) 0.1 k/uL (0-0.7); Eosinophils % (A) 2 %; HCT 33.4 % (39.0-53.0); HGB 10.4 gm/dL (13.0-17.5); Lymphocytes # (A) 1.9 k/uL (1.0-4.8); Lymphocytes % (A) 33 %; MCH 32.1 pg (25.0-35.0); MCHC 31.2 g/dL (31.0-37.0); MCV 103.1 fL (80.0-100.0); Macrocytosis Moderate; Mean Platelet Volume 8.1; Monocytes # (A) 0.6 k/uL (0-1.0); Monocytes % (A) 10 %; Neutrophils % (A) 52 %; Platelet Count 147 k/uL (150-450); RBC 3.24 m/uL (4.30-5.90); RDW 15.5 % (11.5-15.5); WBC 5.7 k/uL (3.8-10.6)
[2018-06-13 03:18] LABS: ALT 106 U/L (21-72); AST 177 U/L (17-59); Albumin 4.1 g/dL (3.5-5.0); Alkaline Phosphatase 298 U/L (38-126); Amphetamine Screen,Urine Not Detected (NotDetected); Anion Gap 11 mmol/L; Barbiturate Screen,Urine Not Detected (NotDetected); Benzodiazepines Screen,Urine Not Detected (NotDetected); Blood Urea Nitrogen 10 mg/dL (9-20); Calcium 9.5 mg/dL (8.4-10.2); Carbon Dioxide 25 mmol/L (22-30); Chloride 104 mmol/L (98-107); Cocaine Screen,Urine Not Detected (NotDetected); Glucose 95 mg/dL (74-99); Methadone Screen, Urine Not Detected (NotDetected); Opiate Screen,Urine Not Detected (NotDetected); Oxycodone Screen, Urine Not Detected (NotDetected); Phencyclidine Screen,Urine Not Detected (NotDetected); Potassium 4.2 mmol/L (3.5-5.1); Sodium 140 mmol/L (137-145); Total Bilirubin 1.3 mg/dL (0.2-1.3); Total Protein 8.5 g/dL (6.3-8.2); Tricyclic Antidepressant,Urine Not Detected (NotDetected); Urn Cannabinoid Scrn Not Detected (NotDetected)
[2018-06-13 03:21] LABS: Alcohol 180 mg/dL
[2018-06-13 07:18] VITALS: BP 121/83; PULSE 86; TEMP 98.5
== END 2018-06-13 07:18 | disposition home or self-care (01) ==
LOC: EC 01:28
DX: F10.239 Alcohol dependence with withdrawal, unspecified (principal); R56.9 Unspecified convulsions; K70.10 Alcoholic hepatitis without ascites; Y90.6 Blood alcohol level of 120-199 mg/100 ml
CPT/HCPCS: 36415; 93005; 80053; 82140; 85025; 81003; 80306; 99285; 96360; G0480; 80320

== ENCOUNTER 2018-08-11 01:36 | Emergency (ER) | payer OTHER ==
[2018-08-11] MEDS ORDERED: SODIUM CHLORIDE 0.9% 1,000 ML IV STA (02:06)
[2018-08-11 02:21] LABS: Basophils % (A) 1 %; Eosinophils # (A) 0.1 k/uL (0-0.7); Eosinophils % (A) 3 %; HCT 34.2 % (39.0-53.0); HGB 10.6 gm/dL (13.0-17.5); Lymphocytes # (A) 1.5 k/uL (1.0-4.8); Lymphocytes % (A) 37 %; MCH 30.4 pg (25.0-35.0); MCHC 30.9 g/dL (31.0-37.0); MCV 98.2 fL (80.0-100.0); Macrocytosis Slight; Mean Platelet Volume 8.6; Monocytes # (A) 0.4 k/uL (0-1.0); Monocytes % (A) 10 %; Neutrophils # (A) 1.9 k/uL (1.3-7.7); Neutrophils % (A) 45 %; Platelet Count 114 k/uL (150-450); RBC 3.49 m/uL (4.30-5.90); RDW 15.9 % (11.5-15.5); WBC 4.1 k/uL (3.8-10.6)
[2018-08-11 02:28] LABS: Creatine Kinase 89 U/L (55-170)
--- NOTE | 2018-08-11 02:29 | ED ---
Chest Pain HPI - General Chief Complaint: Chest Pain Stated Complaint: Chest Pain Time Seen by Provider: 08/11/18 01:47 Source: patient Mode of arrival: ambulatory Limitations: no limitations - History of Present Illness Initial Comments: 37-year-old male patient with history of daily alcohol use presents to the emergency department today with complaints of intermittent chest pain for the last 2 weeks. Patient states the pain does radiate through to his back. He does become short of breath with this. Patient states the pain comes and goes. States it does worsen when he eats food. Patient states he does occasionally have nausea and vomiting in the mornings. Patient denies any sweats with this. Denies any abdominal pain. Patient denies any recent rash, fever, chills, diarrhea, constipation, back pain, numbness, tingling, dizziness, weakness, hematuria, dysuria, urinary urgency, urinary frequency, headache, visual changes , or any other complaints. Patient denies cigarette use. - Related Data Previous Rx's Medication Instructions Recorded Famotidine [Pepcid] 20 mg PO DAILY #30 tablet 08/11/18 Allergies Allergy/AdvReac Type Severity Reaction Status Date / Time No Known Allergies Allergy Verified 08/11/18 01:42 Review of Systems ROS Statement: Those systems with pertinent positive or pertinent negative responses have been documented in the HPI. ROS Other: All systems not noted in ROS Statement are negative. EKG Findings - EKG Comments: EKG Findings:: EKG obtained at shows normal sinus rhythm with a ventricular rate of 86, NE interval 136, QRS duration 88, QT 368, QTC 440. No evidence of ST elevation or depression. Past Medical History Past Medical History: Hypertension Additional Past Medical History / Comment(s): ABSCESS History of Any Multi-Drug Resistant Organisms: None Reported Additional Past Surgical History / Comment(s): LEFT LEG SURGERY R/T TRAUMA, jaw Past Anesthesia/Blood Transfusion Reactions: No Reported Reaction Past Psychological History: No Psychological Hx Reported Smoking Status: Never smoker Past Alcohol Use History: Abuse, Daily Past Drug Use History: None Reported - Past Family History Mother Family Medical History: Diabetes Mellitus Additional Family Medical History / Comment(s): from sudhakar johnsons syndrome Father Family Medical History: Diabetes Mellitus Additional Family Medical History / Comment(s): from dm complications General Exam Limitations: no limitations General appearance: alert, in no apparent distress, other (This is a well- developed, well-nourished adult male patient in no acute distress. Vital signs upon presentation are temperature 98.0F, pulse 103, respirations 18, blood pressure 132/78, pulse ox 100% on room air.) ENT exam: Present: normal exam, normal oropharynx, mucous membranes moist Respiratory exam: Present: normal lung sounds bilaterally. Absent: respiratory distress, wheezes, rales, rhonchi, stridor Cardiovascular Exam: Present: regular rate, normal rhythm, normal heart sounds. Absent: systolic murmur, diastolic murmur, rubs, gallop, clicks GI/Abdominal exam: Present: soft, normal bowel sounds. Absent: distended, tenderness, guarding, rebound, rigid Neurological exam: Present: alert, oriented X3, CN II-XII intact Psychiatric exam: Present: normal affect, normal mood Skin exam: Present: warm, dry, intact, normal color. Absent: rash Course Vital Signs 08/11/18 08/11/18 01:39 01:45 Temperature 98 F Pulse Rate 103 H Pulse Rate [ 69 Pre Parole Counseling Aide ] Respiratory 18 Rate Blood Pressure 132/78 O2 Sat by Pulse 100 Oximetry Chest Pain MDM - MDM 37-year-old male patient presents to the emergency department today for evaluation of intermittent chest pain over the last 2 weeks. Patient states pain does worsen after eating. Physical examination is unremarkable, abdomen soft and nontender. EKG shows normal sinus rhythm. Labs reviewed and are unremarkable troponin was negative. Patient does have elevated liver enzymes most likely from chronic alcohol abuse. Patient may be suffering from alcohol- induced gastritis, we will treat this with Pepcid. He is instructed to follow- up with gastroenterology for further evaluation. Patient is intoxicated here in the department, alcohol level 220. Patient does not have a ride home at this time we will monitor until he is able to obtain a ride or he becomes sober and able to drive himself. Dr. Wang will take over monitoring patient at 0500. Disposition Clinical Impression: Alcohol abuse, Gastritis Disposition: HOME SELF-CARE Condition: Good Instructions: Abuse of Alcohol (ED), Gastritis (ED) Additional Instructions: Avoid alcohol use. Take medications as directed. Follow up with trimming assembler for recheck as soon as possible. Return here immediately for any new, worsening, or concerning symptoms. Prescriptions: Famotidine [Pepcid] 20 mg PO DAILY #30 tablet Is patient prescribed a controlled substance at d/c from ED?: No Referrals: Meaghan Davies MD [Primary Care Provider] - 1-2 days Cherie Vargas MD [STAFF PHYSICIAN] - 1-2 days Time of Disposition: 04:53
[2018-08-11 02:30] LABS: ALT 116 U/L (21-72); AST 250 U/L (17-59); Albumin 3.9 g/dL (3.5-5.0); Alkaline Phosphatase 290 U/L (38-126); Amylase 111 U/L (30-110); Anion Gap 11 mmol/L; Blood Urea Nitrogen 11 mg/dL (9-20); Calcium 9.1 mg/dL (8.4-10.2); Carbon Dioxide 26 mmol/L (22-30); Chloride 101 mmol/L (98-107); Glucose 106 mg/dL (74-99); Lipase 238 U/L (23-300); Potassium 4.4 mmol/L (3.5-5.1); Sodium 138 mmol/L (137-145); Total Bilirubin 1.4 mg/dL (0.2-1.3); Total Protein 8.7 g/dL (6.3-8.2)
[2018-08-11 02:31] LABS: INR 1.3 (<1.2); Partial Thromboplastin Time 23.1 sec (22.0-30.0); Prothrombin Time 11.9 sec (9.0-12.0)
--- NOTE | 2018-08-11 02:31 | XR ---
EXAMINATION TYPE: XR chest 2V DATE OF EXAM: 08/11/2018 COMPARISON: 06/01/2016 HISTORY: Chest pain TECHNIQUE: Frontal and lateral views of the chest are obtained. FINDINGS: Heart and mediastinum are normal. Lungs are clear. Diaphragm is normal. There is mild thor acic dextroscoliosis. There are chest leads. IMPRESSION: No cardiopulmonary disease. No change.
[2018-08-11 02:35] LABS: Alcohol 220 mg/dL
[2018-08-11 02:41] LABS: Creatine Kinase MB 0.3 ng/mL (0.0-2.4); Troponin I <0.012 ng/mL (0.000-0.034)
[2018-08-11 10:18] VITALS: BP 128/84; PULSE 78; RESP 18; TEMP 98.7
== END 2018-08-11 09:52 | disposition home or self-care (01) ==
LOC: EC 01:36
DX: K29.70 Gastritis, unspecified, without bleeding (principal); F10.10 Alcohol abuse, uncomplicated; R74.8 Abnormal levels of other serum enzymes; R07.9 Chest pain, unspecified
CPT/HCPCS: 36415; 93005; 80053; 82150; 82550; 82553; 83690; 83735; 84484; 85025; 85610; 85730; 71046; 99285; 96360; G0480; 80320

== ENCOUNTER 2021-05-05 23:06 | Observation (INO) | payer OTHER ==
--- NOTE | 2021-05-06 00:09 | CT ---
EXAMINATION TYPE: CT brain cspine wo con DATE OF EXAM: 05/05/2021 COMPARISON: None HISTORY: ETOH/head injury CT DLP: 1319.9 mGycm Automated exposure control for dose reduction was used. Ventricles have normal size. There is no mass effect nor midline shift. There is no sign of intracran ial hemorrhage. The calvarium is intact. Skull base is intact. There is normal aeration of the mastoi d sinuses. Cervical vertebra have normal spacing and alignment. Posterior elements are intact. Facet joints are intact. Prevertebral soft tissues are intact. IMPRESSION: Negative CT scan of the cervical spine. Negative CT scan of the brain.
[2021-05-06 00:42] LABS: HCT 39.5 % (39.0-53.0); HGB 12.6 gm/dL (13.0-17.5); MCHC 31.9 g/dL (31.0-37.0); MCV 100.3 fL (80.0-100.0); Mean Platelet Volume 8.2; Platelet Count 173 k/uL (150-450); RBC 3.94 m/uL (4.30-5.90); RDW 12.3 % (11.5-15.5)
[2021-05-06 01:06] LABS: ALT 60 U/L (4-49); AST 171 U/L (17-59); African American GFR (CKD) >90 (>60 ml/min/1.73 sqM); Alkaline Phosphatase 439 U/L (38-126); Anion Gap 12 mmol/L; Blood Urea Nitrogen 14 mg/dL (9-20); Calcium 8.8 mg/dL (8.4-10.2); Carbon Dioxide 23 mmol/L (22-30); Chloride 108 mmol/L (98-107); Glucose 91 mg/dL (74-99); Non-African American GFR(CKD) >90 (>60 ml/min/1.73 sqM); Potassium 4.4 mmol/L (3.5-5.1); Sodium 143 mmol/L (137-145); Total Bilirubin 0.6 mg/dL (0.2-1.3); Total Protein 8.5 g/dL (6.3-8.2)
--- NOTE | 2021-05-06 01:19 | ED ---
Alcohol HPI - General Chief Complaint: Alcohol Stated Complaint: ETOH Time Seen by Provider: 05/05/21 23:21 Source: patient, EMS Mode of arrival: EMS Limitations: no limitations - History of Present Illness Initial Comments: 40-year-old male presents to the mental department for alcohol intoxication. Patient reports he was out on a boat night and had multiple beers and liquor beverages and wine. Patient was brought to the ED via EMS after he was found hitting the ground. Patient reports he feels slightly nauseous but reports also having his head. Questionable loss of consciousness. Denies any other complaints. - Related Data Previous Rx's Medication Instructions Recorded Famotidine [Pepcid] 20 mg PO DAILY #30 tablet 08/11/18 Allergies Allergy/AdvReac Type Severity Reaction Status Date / Time No Known Allergies Allergy Verified 08/11/18 01:42 Review of Systems ROS Statement: Those systems with pertinent positive or pertinent negative responses have been documented in the HPI. ROS Other: All systems not noted in ROS Statement are negative. Past Medical History Past Medical History: Hypertension Additional Past Medical History / Comment(s): ABSCESS History of Any Multi-Drug Resistant Organisms: None Reported Additional Past Surgical History / Comment(s): LEFT LEG SURGERY R/T TRAUMA, jaw Past Anesthesia/Blood Transfusion Reactions: No Reported Reaction Past Psychological History: No Psychological Hx Reported Smoking Status: Former smoker Past Alcohol Use History: Abuse, Daily Past Drug Use History: None Reported - Past Family History Mother Family Medical History: Diabetes Mellitus Additional Family Medical History / Comment(s): from sudhakar johnsons syndrome Father Family Medical History: Diabetes Mellitus Additional Family Medical History / Comment(s): from dm complic ations General Exam Limitations: no limitations General appearance: alert, in no apparent distress, appears intoxicated Head exam: Present: atraumatic, normocephalic, normal inspection. Absent: other (Negative Bradley sign, raccoon eyes, hemotympanum.) Eye exam: Present: normal appearance, PERRL, EOMI, nystagmus (Lateral lateral) Pupils: Present: normal accommodation ENT exam: Present: normal exam, normal oropharynx, mucous membranes moist, TM's normal bilaterally, normal external ear exam Neck exam: Present: normal inspection, full ROM. Absent: tenderness, meningismus Respiratory exam: Present: normal lung sounds bilaterally. Absent: respiratory distress Cardiovascular Exam: Present: regular rate, normal rhythm, normal heart sounds. Absent: systolic murmur GI/Abdominal exam: Present: soft. Absent: guarding, rebound Extremities exam: Present: normal inspection, full ROM, normal capillary refill. Absent: tenderness, pedal edema, joint swelling Back exam: Present: normal inspection, full ROM. Absent: tenderness, CVA tenderness (R), CVA tenderness (L), muscle spasm, paraspinal tenderness Neurological exam: Present: alert Psychiatric exam: Present: normal affect, normal mood Skin exam: Present: warm, dry, intact, normal color Course Vital Signs 05/05/21 05/06/21 05/06/21 23:07 00:21 01:38 Temperature 96.8 F L Pulse Rate 113 H 110 H 99 Respiratory 16 18 16 Rate Blood Pressure 126/77 118/74 99/66 O2 Sat by Pulse 93 L 93 L 92 L Oximetry Medical Decision Making - Medical Decision Making 40-year-old male presents to the mental department for alcohol intoxication. on physical examination, patient is clearly intoxicated. However, he is very cooperative. No obvious signs of acute injuries on exam. on examination. blood alcohol 395. CIWA assessed. Ativan protocol. patient will be admitted for medical managment. case discussed with physician. admittting is Dr jaramillo - Lab Data Result diagrams: 05/05/21 23:49 05/05/21 23:49 Lab Results 05/05/21 05/05/21 Range/Units 23:49 23:49 WBC 6.0 (3.8-10.6) k/uL RBC 3.94 L (4.30-5.90) m/uL Hgb 12.6 L (13.0-17.5) gm/dL Hct 39.5 (39.0-53.0) % MCV 100.3 H (80.0-100.0) fL MCH 32.0 (25.0-35.0) pg MCHC 31.9 (31.0-37.0) g/dL RDW 12.3 (11.5-15.5) % Plt Count 173 (150-450) k/uL MPV 8.2 Sodium 143 (137-145) mmol/L Potassium 4.4 (3.5-5.1) mmol/L Chloride 108 H (98-107) mmol/L Carbon Dioxide 23 (22-30) mmol/L Anion Gap 12 mmol/L BUN 14 (9-20) mg/dL Creatinine 0.70 (0.66-1.25) mg/dL Est GFR (CKD-EPI)AfAm >90 (>60 ml/min/1.73 sqM) Est GFR (CKD-EPI)NonAf >90 (>60 ml/min/1.73 sqM) Glucose 91 (74-99) mg/dL Calcium 8.8 (8.4-10.2) mg/dL Total Bilirubin 0.6 (0.2-1.3) mg/dL AST 171 H (17-59) U/L ALT 60 H (4-49) U/L Alkaline Phosphatase 439 H (38-126) U/L Total Protein 8.5 H (6.3-8.2) g/dL Albumin 4.0 (3.5-5.0) g/dL Serum Alcohol 395 H* mg/dL Disposition Clinical Impression: Alcoholic intoxication Disposition: ADMITTED IP TO THIS HOSP Condition: Fair Is patient prescribed a controlled substance at d/c from ED?: No Referrals: Meaghan Davies MD [Primary Care Provider] - 1-2 days Time of Disposition: 02:05
[2021-05-06 01:53] LABS: Alcohol 395 mg/dL
[2021-05-06] MEDS ORDERED: THIAMINE 100 MG/ML 2 ML VIAL IM STA (01:58)
[2021-05-06] MEDS ORDERED: LORazepam 2 MG/ML INJ IV PRN ×3 (01:58)
[2021-05-06] MEDS ORDERED: NALOXONE 0.4 MG/ML 1 ML VIAL IV PRN (01:59)
[2021-05-06 05:30] LABS: Band Neutrophils % 3 %; Eosinophils # (M) 0.06 k/uL (0-0.7); Lymphocytes # (M) 3.18 k/uL (1.0-4.8); Monocytes # (M) 0.36 k/uL (0-1.0); Neutrophils % (M) 37 %; Nucleated Red Blood Cells 0 /100 WBC (0-0); Total Cells Counted 100
[2021-05-06] MEDS ORDERED: PANTOPRAZOLE 40 MG/10 ML VIAL IVP SCH (10:30)
--- NOTE | 2021-05-06 11:36 | P.HPIM ---
History of Present Illness Patient is a pleasant 40-year-old male was admitted for alcohol intoxication. Patient does drink quite a bit of alcohol every single day had multiple beers and hard liquor patient did have withdrawals in the past patient is willing to quit alcohol. Patient was nauseous and patient denied any smoking history patient does have macrocytosis. Patient does have elevated liver enzymes with AST 171 and ALP of 60 consistent with alcoholic hepatitis. Patient is alert oriented 3 at this time. REVIEW OF SYSTEMS: CONSTITUTIONAL: No fever, no malaise, no fatigue. HEENT: No recent visual problems or hearing problems. Denied any sore throat. CARDIOVASCULAR: No chest pain, orthopnea, PND, no palpitations, no syncope. PULMONARY: No shortness of breath, no cough, no hemoptysis. GASTROINTESTINAL: No diarrhea, no nausea, no vomiting, no abdominal pain. NEUROLOGICAL: No headaches, no weakness, no numbness. HEMATOLOGICAL: Denies any bleeding or petechiae. GENITOURINARY: Denies any burning micturition, frequency, or urgency. MUSCULOSKELETAL/RHEUMATOLOGICAL: Denies any joint pain, swelling, or any muscle pain. ENDOCRINE: Denies any polyuria or polydipsia. The rest of the 14-point review of systems is negative. PHYSICAL EXAMINATION: GENERAL: The patient is alert and oriented x3, not in any acute distress. Well d eveloped, well nourished. HEENT: Pupils are round and equally reacting to light. EOMI. No scleral icterus. No conjunctival pallor. Normocephalic, atraumatic. No pharyngeal erythema. No thyromegaly. CARDIOVASCULAR: S1 and S2 present. No murmurs, rubs, or gallops. PULMONARY: Chest is clear to auscultation, no wheezing or crackles. ABDOMEN: Soft, nontender, nondistended, normoactive bowel sounds. No palpable organomegaly. MUSCULOSKELETAL: No joint swelling or deformity. EXTREMITIES: No cyanosis, clubbing, or pedal edema. NEUROLOGICAL: Gross neurological examination did not reveal any focal deficits. SKIN: No rashes. Assessment and plan -Alcohol abuse: Counseling was provided patient is willing to quit alcohol social service liaison will be consulted -Acute alcoholic hepatitis expected to improve -Alcohol withdrawal patient will be monitored tonight for any alcohol withdrawal if he doesn't have any withdrawals patient will be discharged tomorrow -Macrocytosis secondary to chronic alcoholism, patient is on thiamine multivitamin supplementation at this time. DVT prophylaxis: Lovenox Past Medical History Past Medical History: Hypertension Additional Past Medical History / Comment(s): ABSCESS History of Any Multi-Drug Resistant Organisms: None Reported Additional Past Surgical History / Comment(s): LEFT LEG SURGERY R/T TRAUMA, jaw Past Anesthesia/Blood Transfusion Reactions: No Reported Reaction Past Psychological History: No Psychological Hx Reported Smoking Status: Former smoker Past Alcohol Use History: Abuse, Daily Past Drug Use History: None Reported - Past Family History Mother Family Medical History: Diabetes Mellitus Additional Family Medical History / Comment(s): from sudhakar johnsons syndrome Father Family Medical History: Diabetes Mellitus Additional Family Medical History / Comment(s): from dm complications Medications and Allergies Home Medications Medication Instructions Recorded Confirmed Type Daily-Sae 1 tab PO DAILY 05/06/21 05/06/21 History Folic Acid 1 mg PO DAILY 05/06/21 05/06/21 History Thiamine [Vitamin B-1] 100 mg PO DAILY 05/06/21 05/06/21 History Allergies Allergy/AdvReac Type Severity Reaction Status Date / Time No Known Allergies Allergy Verified 05/06/21 09:35 Physical Exam Vitals: Vital Signs Temp Pulse Pulse Resp BP BP Pulse Ox 05/06/21 08:10 98.7 F 87 12 116/77 94 L 05/06/21 04:22 97.6 F 93 15 108/70 94 L 05/06/21 03:17 98 F 92 16 109/72 94 L 05/06/21 01:38 99 16 99/66 92 L 05/06/21 00:21 110 H 18 118/74 93 L 05/05/21 23:07 96.8 F L 113 H 16 126/77 93 L Intake and Output 05/05/21 05/06/21 05/06/21 22:59 06:59 14:59 Other: # Voids 1 Weight 74.843 kg Results CBC & Chem 7: 05/05/21 23:49 05/05/21 23:49 Labs: Abnormal Lab Results - Last 24 Hours (Table) 05/05/21 05/05/21 Range/Units 23:49 23:49 RBC 3.94 L (4.30-5.90) m/uL Hgb 12.6 L (13.0-17.5) gm/dL MCV 100.3 H (80.0-100.0) fL Chloride 108 H (98-107) mmol/L AST 171 H (17-59) U/L ALT 60 H (4-49) U/L Alkaline Phosphatase 439 H (38-126) U/L Total Protein 8.5 H (6.3-8.2) g/dL Serum Alcohol 395 H* mg/dL Thrombosis Risk Factor Assmnt - Choose All That Apply Any of the Below Risk Factors Present?: No Other Risk Factors: No Other congenital or acquired thrombophilia - If yes, enter type in comment: No Thrombosis Risk Factor Assessment Level: Very Low Risk
[2021-05-06] MEDS: SODIUM CHLORIDE 0.9% 1,000 ML IV SCH ×2 (12:26→22:00)
[2021-05-06] MEDS: THIAMINE 100 MG TAB PO SCH (17:02)
[2021-05-07] MEDS ORDERED: PANTOPRAZOLE 40 MG TABLET PO SCH (07:30)
[2021-05-07] MEDS: SODIUM CHLORIDE 0.9% 1,000 ML IV SCH ×2 (07:59→14:04)
[2021-05-07 08:07] VITALS: TEMP 98.1
[2021-05-07] MEDS: THIAMINE 100 MG TAB PO SCH ×2 (08:33→15:54)
--- NOTE | 2021-05-07 08:42 | P.DS ---
Providers Date of admission: 05/06/21 03:09 Expected date of discharge: 05/07/21 Attending physician: Shahram Mobley Primary care physician: Samson Stoner [facility] [place] Course: Patient is a pleasant 40-year-old male was admitted for alcohol intoxication. Patient does drink quite a bit of alcohol every single day had multiple beers and hard liquor patient did have withdrawals in the past patient is willing to quit alcohol. Patient was nauseous and patient denied any smoking history patient does have macrocytosis. Patient does have elevated liver enzymes with AST 171 and ALP of 60 consistent with alcoholic hepatitis. Patient is alert oriented 3 at this time. 05/07/2021 Patient was not requiring any Ativan overnight, having minimal to no withdrawal symptoms at this point. Patient has stated that he does want to quit alcohol, he is concerned about having further withdrawal symptoms at home, for which we will give him a short prescription of Librium. He was educated not to take alcohol and Librium together due to the synergistic sedating effects. BP 150/85, mild elevation is most likely due to his recent cessation of alcohol. No fever. REVIEW OF SYSTEMS: CONSTITUTIONAL: No fever, no malaise, no fatigue. CARDIOVASCULAR: No chest pain, orthopnea, PND, no palpitations, no syncope. PULMONARY: No shortness of breath, no cough, no hemoptysis. GASTROINTESTINAL: No diarrhea, no nausea, no vomiting, no abdominal pain. NEUROLOGICAL: No headaches, no weakness, no numbness. GENITOURINARY: Denies any burning micturition, frequency, or urgency. The rest of the 14-point review of systems is negative. PHYSICAL EXAMINATION: GENERAL: The patient is alert and oriented x3, not in any acute distress. Well developed, well nourished. HEENT: Pupils are round and equally reacting to light. EOMI. No scleral icterus. No conjunctival pallor. Normocephalic, atraumatic. No pharyngeal erythema. No thyromegaly. CARDIOVASCULAR: S1 and S2 present. No murmurs, rubs, or gallops. PULMONARY: Chest is clear to auscultation, no wheezing or crackles. ABDOMEN: Soft, nontender, nondistended, normoactive bowel sounds. No palpable organomegaly. MUSCULOSKELETAL: No joint swelling or deformity. EXTREMITIES: No cyanosis, clubbing, or pedal edema. NEUROLOGICAL: Gross neurological examination did not reveal any focal deficits. SKIN: No rashes. Assessment and plan -Alcohol abuse: Counseling was provided patient is willing to quit alcohol. Social work following. No withdrawal symptoms overnight, did not require Ativan. His BP is mildly elevated, this is likely due to the recent cessation of alcohol we will hold off on giving antihypertensives at this time. Patient given prescription for short course of Librium, he was counseled not to take Librium and alcohol together due to her synergistic sedating effects, patient verbalized understanding. -Acute alcoholic hepatitis expected to improve -Alcohol withdrawal: Having minimal to no withdrawal symptoms at this point as mentioned above, going home on Librium as mentioned. -Macrocytosis secondary to chronic alcoholism: We will continue on thiamine, folic acid and multivitamin at discharge. Follow-up with PCP in one week. Patient Condition at Discharge: Fair Plan - Discharge Summary Discharge Rx Participant: No New Discharge Prescriptions: New chlordiazePOXIDE HCl [Librium] 25 mg PO QID 3 Days #12 capsule No Action Daily-Sae 1 tab PO DAILY Thiamine [Vitamin B-1] 100 mg PO DAILY Folic Acid 1 mg PO DAILY Discharge Medication List Daily-Sae 1 tab PO DAILY 05/06/21 [History] Folic Acid 1 mg PO DAILY 05/06/21 [History] Thiamine [Vitamin B-1] 100 mg PO DAILY 05/06/21 [History] chlordiazePOXIDE HCl [Librium] 25 mg PO QID 3 Days #12 capsule 05/07/21 [Rx] Follow up Appointment(s)/Referral(s): Meaghan Davies MD [Primary Care Provider] - 3 Days Discharge Disposition: HOME SELF-CARE
[2021-05-07] MEDS ORDERED: ENOXAPARIN 40 MG/0.4 ML SYRINGE SQ SCH (09:00)
[2021-05-07 10:49] LABS: African American GFR (CKD) 130.4 (60.0-200.0); Albumin 3.4 g/dL (3.80-4.90); Albumin/Globulin Ratio 0.81 (1.60-3.17); Anion Gap 5.2 mmol/L (4.00-12.00); BUN/Creat Ratio 11.25 Ratio (12.00-20.00); Calcium 8.9 mg/dL (8.7-10.3); Carbon Dioxide 26.8 mmol/L (21.6-31.8); Globulin 4.2 g/dL (1.6-3.3); Non-African American GFR(CKD) 112.5 (60.0-200.0); Potassium 3.5 mmol/L (3.5-5.5); Total Bilirubin 1.3 mg/dL (0.3-1.2); Total Protein 7.6 g/dL (6.2-8.2)
[2021-05-07 14:00] VITALS: BP 126/75; PULSE 84; RESP 13
== END 2021-05-07 18:20 | disposition home or self-care (01) ==
LOC: EC 23:06 → 4SSUR 05-06 03:09
PROVIDERS: ADMIT Internal Medicine; ATTEND Internal Medicine
DX: F10.239 Alcohol dependence with withdrawal, unspecified (principal); F10.229 Alcohol dependence with intoxication, unspecified; K70.10 Alcoholic hepatitis without ascites; I10 Essential (primary) hypertension; D75.89 Other specified diseases of blood and blood-forming organs; Z87.891 Personal history of nicotine dependence; Z83.3 Family history of diabetes mellitus; Y90.8 Blood alcohol level of 240 mg/100 ml or more
CPT/HCPCS: 96372; 99285; 36415; 80053 ×2; 85025; 72125; 70450; G0378 ×2; G0480; J3411; 80320

== ENCOUNTER 2021-05-20 01:52 | Inpatient (IN) | payer OTHER ==
[2021-05-20 01:59] LABS: Glucose,Whole Blood 116 mg/dL (75-99)
[2021-05-20 02:00] VITALS: TEMP 98.2
[2021-05-20] MEDS ORDERED: SODIUM CHLORIDE 0.9% 1,000 ML IV STA (02:32)
[2021-05-20 02:50] LABS: HCT 43.6 % (39.0-53.0); HGB 14.6 gm/dL (13.0-17.5); MCH 32.3 pg (25.0-35.0); MCHC 33.4 g/dL (31.0-37.0); MCV 96.6 fL (80.0-100.0); Mean Platelet Volume 9.3; Platelet Count 110 k/uL (150-450); RBC 4.51 m/uL (4.30-5.90); RDW 12.6 % (11.5-15.5); WBC 4.5 k/uL (3.8-10.6)
[2021-05-20 02:53] LABS: ALT 115 U/L (4-49); AST 287 U/L (17-59); African American GFR (CKD) >90 (>60 ml/min/1.73 sqM); Albumin 4.5 g/dL (3.5-5.0); Alkaline Phosphatase 246 U/L (38-126); Anion Gap 18 mmol/L; Blood Urea Nitrogen 17 mg/dL (9-20); Carbon Dioxide 16 mmol/L (22-30); Chloride 103 mmol/L (98-107); Glucose 114 mg/dL (74-99); Non-African American GFR(CKD) >90 (>60 ml/min/1.73 sqM); Potassium 4.4 mmol/L (3.5-5.1); Sodium 137 mmol/L (137-145); Total Bilirubin 3.1 mg/dL (0.2-1.3); Total Protein 9.7 g/dL (6.3-8.2)
[2021-05-20 03:14] LABS: Band Neutrophils % 2 %; Eosinophils # (M) 0.05 k/uL (0-0.7); Lymphocytes # (M) 2.79 k/uL (1.0-4.8); Monocytes # (M) 0.23 k/uL (0-1.0); Neutrophils % (M) 30 %; Nucleated Red Blood Cells 0 /100 WBC (0-0); Total Cells Counted 100
[2021-05-20 03:16] LABS: Target Cells Present
[2021-05-20 03:28] LABS: Alcohol 476 mg/dL
--- NOTE | 2021-05-20 06:41 | CT ---
EXAMINATION TYPE: CT brain wo con DATE OF EXAM: 05/20/2021 COMPARISON: 05/05/2021 HISTORY: Seizure CT DLP: 1114.4 mGycm Automated exposure control for dose reduction was used. Ventricles have normal size. There is no mass effect nor midline shift. There is no sign of intracran ial hemorrhage. The calvarium is intact. There is normal aeration of the mastoid sinuses. Skull base is intact. IMPRESSION: Negative unenhanced head CT scan.
[2021-05-20] MEDS ORDERED: NALOXONE 0.4 MG/ML 1 ML VIAL IV PRN (06:54)
[2021-05-20] MEDS ORDERED: ONDANSETRON 4 MG/2 ML VIAL IVP PRN (06:54)
[2021-05-20 06:55] LABS: Amphetamine Screen,Urine Not Detected (NotDetected); Barbiturate Screen,Urine Not Detected (NotDetected); Benzodiazepines Screen,Urine Not Detected (NotDetected); Cocaine Screen,Urine Not Detected (NotDetected); Methadone Screen, Urine Not Detected (NotDetected); Opiate Screen,Urine Not Detected (NotDetected); Oxycodone Screen, Urine Not Detected (NotDetected); Phencyclidine Screen,Urine Not Detected (NotDetected); Tricyclic Antidepressant,Urine Not Detected (NotDetected); Urn Cannabinoid Scrn Not Detected (NotDetected)
[2021-05-20] MEDS ORDERED: LORazepam 2 MG/ML INJ IV PRN ×3 (06:57)
[2021-05-20] MEDS ORDERED: THIAMINE 100 MG/ML 2 ML VIAL IM STA (06:57)
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
[2021-05-20] MEDS ORDERED: SODIUM CHLORIDE 0.9% 1,000 ML IV SCH (07:00)
[2021-05-20] MEDS ORDERED: FAMOTIDINE 20 MG TAB PO SCH (09:00)
--- NOTE | 2021-05-20 13:28 | P.DS ---
Providers Date of admission: 05/20/21 06:54 Attending physician: Jabari Maharaj Primary care physician: Samson Harding [facility] Course: Please refer to HPI for further details Plan - Discharge Summary Discharge Rx Participant: No New Discharge Prescriptions: New Thiamine [Vitamin B-1] 100 mg PO BID-W/MEALS #60 tab Discharge Medication List Thiamine [Vitamin B-1] 100 mg PO BID-W/MEALS #60 tab 05/20/21 [Rx] Follow up Appointment(s)/Referral(s): Meaghan Davies MD [Primary Care Provider] - 3 Days Patient Instructions/Handouts: Seizure/Epilepsy Discharge Instructions & Follow-Up
--- NOTE | 2021-05-20 13:28 | P.HPIM ---
History of Present Illness Patient was born the hospital after he was found unresponsive. Patient was recently admitted in the hospital about couple weeks ago at that time I treated him for alcohol withdrawals. Patient didn't have a much of withdrawals at that time patient was discharged home with extensive counseling and the patient is was advised to follow up in with alcohol rehabilitation program. Patient states he was sober for couple days after that and started drinking again. Patient appears to be intoxicated and found unresponsive. Although there was a concern about a tonic-clonic activity and bladder incontinence and loss of consciousness I do not believe patient had a seizure as patient was quite intoxicated when he came to ER. With such a high alcohol levels, patient cannot have alcohol withdrawals. I counseled extensively during this hospitalization as well patient was appropriately treated during last hospitalization, nothing much can be offered from medical perspective patient should be willing to quit alcohol and "alcohol rehabilitation program. Since there is no benefit in monitoring for alcohol withdrawals patient will be discharged today. I do not expect much of alcohol withdrawals either. Patient did have alcoholic hepatitis with elevated AST and ALT. Patient was asked and counseled regarding going to inpatient drug rehabitation program. REVIEW OF SYSTEMS: CONSTITUTIONAL: No fever, no malaise, no fatigue. HEENT: No recent visual problems or hearing problems. Denied any sore throat. CARDIOVASCULAR: No chest pain, orthopnea, PND, no palpitations, no syncope. PULMONARY: No shortness of breath, no cough, no hemoptysis. GASTROINTESTINAL: No diarrhea, no nausea, no vomiting, no abdominal pain. NEUROLOGICAL: No headaches, no weakness, no numbness. HEMATOLOGICAL: Denies any bleeding or petechiae. GENITOURINARY: Denies any burning micturition, frequency, or urgency. MUSCULOSKELETAL/RHEUMATOLOGICAL: Denies any joint pain, swelling, or any muscle pain. ENDOCRINE: Denies any polyuria or polydipsia. The rest of the 14-point review of systems is negative. PHYSICAL EXAMINATION: GENERAL: The patient is alert and oriented x3, not in any acute distress. Well developed, well nourished. HEENT: Pupils are round and equally reacting to light. EOMI. No scleral icterus. No conjunctival pallor. Normocephalic, atraumatic. No pharyngeal erythema. No thyromegaly. CARDIOVASCULAR: S1 and S2 present. No murmurs, rubs, or gallops. PULMONARY: Chest is clear to auscultation, no wheezing or crackles. ABDOMEN: Soft, nontender, nondistended, normoactive bowel sounds. No palpable organomegaly. MUSCULOSKELETAL: No joint swelling or deformity. EXTREMITIES: No cyanosis, clubbing, or pedal edema. NEUROLOGICAL: Gross neurological examination did not reveal any focal deficits. SKIN: No rashes. Assessment and plan -Alcohol intoxication: Once patient is more sober patient will be discharged to [facility]. -Acute alcoholic hepatitis with transaminitis counseling was just -Thrombocytopenia secondary to chronic alcoholism and bone marrow suppression -Mild anion gap metabolic acidosis probably secondary to lactic acidosis from dehydration from alcohol use patient received IV fluids overnight DVT prophylaxis: Patient will be discharged today Past Medical History Past Medical History: Hypertension, Seizure Disorder Additional Past Medical History / Comment(s): ABSCESS History of Any Multi-Drug Resistant Organisms: None Reported Additional Past Surgical History / Comment(s): LEFT LEG SURGERY R/T TRAUMA, jaw Past Anesthesia/Blood Transfusion Reactions: No Reported Reaction Past Psychological History: No Psychological Hx Reported Smoking Status: Current every day smoker Past Alcohol Use History: Abuse, Daily Past Drug Use History: None Reported - Past Family History Mother Family Medical History: Diabetes Mellitus Additional Family Medical History / Comment(s): from sudhakar johnsons syndrome Father Family Medical History: Diabetes Mellitus Additional Family Medical History / Comment(s): from dm complications Medications and Allergies Home Medications Medication Instructions Recorded Confirmed Type Thiamine [Vitamin B-1] 100 mg PO BID-W/MEALS #60 tab 05/20/21 Rx Allergies Allergy/AdvReac Type Severity Reaction Status Date / Time No Known Allergies Allergy Verified 05/20/21 07:14 Physical Exam Vitals: Vital Signs Temp Pulse Pulse Resp BP BP Pulse Ox 05/20/21 12:51 107 H 15 116/75 96 05/20/21 10:18 96 18 110/81 97 05/20/21 08:36 104 H 18 124/90 05/20/21 07:33 94 18 122/92 97 05/20/21 06:00 92 18 118/85 92 L 05/20/21 05:00 95 18 119/96 05/20/21 04:00 89 18 118/92 05/20/21 03:00 89 18 126/104 05/20/21 02:00 89 18 133/103 97 05/20/21 01:55 98.2 F 90 18 135/105 98 Intake and Output 05/19/21 05/20/21 05/20/21 22:59 06:59 14:59 Other: Weight 77.111 kg 77.111 kg Results CBC & Chem 7: 05/20/21 02:34 05/20/21 02:34 Labs: Abnormal Lab Results - Last 24 Hours (Table) 05/20/21 05/20/21 05/20/21 Range/Units 01:58 02:34 02:34 Plt Count 110 L (150-450) k/uL Carbon Dioxide 16 L (22-30) mmol/L Glucose 114 H (74-99) mg/dL POC Glucose (mg/dL) 116 H (75-99) mg/dL Total Bilirubin 3.1 H (0.2-1.3) mg/dL AST 287 H (17-59) U/L ALT 115 H (4-49) U/L Alkaline Phosphatase 246 H (38-126) U/L Total Protein 9.7 H (6.3-8.2) g/dL Serum Alcohol 476 H* mg/dL Thrombosis Risk Factor Assmnt - Choose All That Apply Any of the Below Risk Factors Present?: No
[2021-05-20] MEDS ORDERED: THIAMINE 100 MG TAB PO SCH (17:30)
[2021-05-20 20:08] VITALS: BP 127/78; PULSE 94; RESP 16
== END 2021-05-20 20:10 | disposition home or self-care (01) | DRG 897 ==
LOC: EC 01:52 → 5NMEDONC 06:54
PROVIDERS: ADMIT Hospitalist; ATTEND Hospitalist
DX: F10.229 Alcohol dependence with intoxication, unspecified (principal); E87.2 Acidosis; D69.59 Other secondary thrombocytopenia; E86.0 Dehydration; F17.210 Nicotine dependence, cigarettes, uncomplicated; G40.909 Epilepsy, unspecified, not intractable, without status epilepticus; I10 Essential (primary) hypertension; K70.10 Alcoholic hepatitis without ascites; R32 Unspecified urinary incontinence; Z71.41 Alcohol abuse counseling and surveillance of alcoholic
CPT/HCPCS: 36415; 70450; 80053; 80306; 80320; 83735; 85025; 93005; 96360; 96372; 99285

== ENCOUNTER 2022-04-24 02:31 | Emergency (ER) | payer OTHER ==
[2022-04-24 02:41] VITALS: BP 134/70; PULSE 80; RESP 18; TEMP 98
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
--- NOTE | 2022-04-24 07:08 | CT ---
EXAM: CT Head Without Intravenous Contrast CLINICAL HISTORY: ITS.REASON CT Reason: pain/recent cervical fracture TECHNIQUE: Axial computed tomography images of the head/brain without intravenous contrast. CTDI is 45.37 mGy and DLP is 1014.0 mGy-cm. This CT exam was performed using one or more of the following dose reduction techniques: automated exposure control, adjustment of the mA and/or kV according to patient size, and/or use of iterative reconstruction technique. COMPARISON: No relevant prior studies available. FINDINGS: Brain: Unremarkable. No hemorrhage. No significant white matter disease. No edema. Ventricles: Unremarkable. No ventriculomegaly. Bones/joints: Unremarkable. No acute fracture. Soft tissues: Unremarkable. Sinuses: Unremarkable as visualized. No acute sinusitis. Mastoid air cells: Unremarkable as visualized. No mastoid effusion. IMPRESSION: Normal head/brain CT. EXAM: CT Cervical Spine Without Intravenous Contrast CLINICAL HISTORY: ITS.REASON CT Reason: pain/recent cervical fracture TECHNIQUE: Axial computed tomography images of the cervical spine without intravenous contrast. CTDI is 12 mGy and DLP is 329.8 mGy-cm. This CT exam was performed using one or more of the following dose reduction techniques: automated exposure control, adjustment of the mA and/or kV according to patient size, and/or use of iterative reconstruction technique. COMPARISON: No relevant prior studies available. FINDINGS: Vertebrae: Nondisplaced fracture of the anterior arch of C1. No spondylolisthesis. Discs/spinal canal/neural foramina: No acute findings. No spinal canal stenosis. Soft tissues: Unremarkable. No prevertebral soft tissue swelling. Bones: Partially visualized plate and screw fixation of the left mandibular angle and right mandibular body. IMPRESSION: Nondisplaced fracture of the anterior arch of C1. No spondylolisthesis. 4
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
== END 2022-04-24 09:43 | disposition home or self-care (01) ==
LOC: EC 02:31
DX: S12.001A Unspecified nondisplaced fracture of first cervical vertebra, initial encounter for closed fracture (principal); S02.609A Fracture of mandible, unspecified, initial encounter for closed fracture; I10 Essential (primary) hypertension; G40.909 Epilepsy, unspecified, not intractable, without status epilepticus; F17.200 Nicotine dependence, unspecified, uncomplicated; Z79.899 Other long term (current) drug therapy; Y04.8XXA Assault by other bodily force, initial encounter
CPT/HCPCS: 70110; 70450; 72125; 99284

== ENCOUNTER 2022-05-10 02:46 | Emergency (ER) | payer OTHER ==
[2022-05-10] MEDS ORDERED: HYDROcodone/APAP 5-325MG 1 EACH TAB PO STA (03:57)
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
--- NOTE | 2022-05-10 04:57 | XR ---
EXAMINATION TYPE: XR thoracic spine 2V DATE OF EXAM: 05/10/2022 COMPARISON: NONE HISTORY: Back pain TECHNIQUE: 3 views FINDINGS: I see no evidence of thoracic compression fracture. There is no paraspinal mass. Posterior elements are intact. Exam limited somewhat by rotation and positioning. IMPRESSION: Negative limited thoracic spine exam. No compression fracture seen.
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
[2022-05-10 12:53] VITALS: BP 123/85; PULSE 89; RESP 18; TEMP 98
== END 2022-05-10 12:53 | disposition home or self-care (01) ==
LOC: EC 02:46
DX: F10.129 Alcohol abuse with intoxication, unspecified (principal); I10 Essential (primary) hypertension; F17.200 Nicotine dependence, unspecified, uncomplicated; V19.3XXA Pedal cyclist (driver) (passenger) injured in unspecified nontraffic accident, initial encounter
CPT/HCPCS: 70486; 72070; 72125; 99284

== ENCOUNTER 2022-06-16 02:51 | Observation (INO) | payer OTHER ==
[2022-06-16] MEDS ORDERED: SODIUM CHLORIDE 0.9% 1,000 ML IV STA (03:00)
[2022-06-16] MEDS ORDERED: ONDANSETRON 4 MG/2 ML VIAL IVP STA (03:01)
[2022-06-16] MEDS ORDERED: THIAMINE 100 MG/ML 2 ML VIAL IM ONE (03:01)
[2022-06-16] MEDS ORDERED: LORazepam 2 MG/ML INJ IV PRN ×3 (03:01)
--- NOTE | 2022-06-16 03:09 | ED ---
Alcohol HPI - General Source: EMS, RN notes reviewed Limitations: altered mental status (Intoxication) - History of Present Illness MD Complaint: alcohol intoxication Previous Visits for Alcohol Intoxication?: Yes Chronic Alcohol Use: Yes <Marybel Hayward - Last Filed: 06/16/22 03:31> <Jimmy Acosta - Last Filed: 06/16/22 06:23> - General Stated Complaint: ETOH, Possible Seizure Time Seen by Provider: 06/16/22 02:52 - History of Present Illness Initial Comments: This is a 41-year-old male who presents to the emergency department for alcohol intoxication. Patient is homeless and was brought in by EMS. He was noted to have used alcohol recently, the amount and type is unclear at this time. Patient also has a known history of seizures. Not currently taking any seizure medication. Patient is very drowsy and difficult to obtain history from. He has been stating "I feel like I am dying". (Marybel Haywadr) - Related Data Home Medications Medication Instructions Recorded Confirmed No Known Home Medications 05/10/22 05/10/22 Allergies Allergy/AdvReac Type Severity Reaction Status Date / Time No Known Allergies Allergy Verified 05/10/22 10:09 Review of Systems ROS Other: All systems not noted in ROS Statement are negative. <Marybel Hayward - Last Filed: 06/16/22 03:31> ROS Other: All systems not noted in ROS Statement are negative. <Jimmy Acosta - Last Filed: 06/16/22 06:23> ROS Statement: Those systems with pertinent positive or pertinent negative responses have been documented in the HPI. Past Medical History Past Medical History: Hypertension, Seizure Disorder Additional Past Medical History / Comment(s): ABSCESS History of Any Multi-Drug Resistant Organisms: None Reported Additional Past Surgical History / Comment(s): LEFT LEG SURGERY R/T TRAUMA, jaw Past Anesthesia/Blood Transfusion Reactions: No Reported Reaction Past Psychological History: No Psychological Hx Reported Smoking Status: Current every day smoker Past Alcohol Use History: Abuse, Daily Past Drug Use History: None Reported - Past Family History Mother Family Medical History: Diabetes Mellitus Additional Family Medical History / Comment(s): from sudhakar johnsons syndrome Father Family Medical History: Diabetes Mellitus Additional Family Medical History / Comment(s): from dm complications <Marybel Hayward - Last Filed: 06/16/22 03:31> General Exam General appearance: appears intoxicated Head exam: Present: atraumatic, normocephalic, normal inspection Respiratory exam: Present: normal lung sounds bilaterally. Absent: respiratory distress, wheezes, rales, rhonchi, stridor Cardiovascular Exam: Present: regular rate, normal rhythm, normal heart sounds. Absent: systolic murmur, diastolic murmur, rubs, gallop, clicks Neurological exam: Present: alert, oriented X3, CN II-XII intact Psychiatric exam: Present: normal affect, normal mood Skin exam: Present: warm, dry, intact, normal color. Absent: rash <Marybel Hayward - Last Filed: 06/16/22 03:31> Course Vital Signs 06/16/22 06/16/22 03:09 05:00 Temperature 95.0 F L Pulse Rate 79 86 Respiratory 14 14 Rate Blood Pressure 131/101 113/79 O2 Sat by Pulse 95 93 L Oximetry Medical Decision Making <Marybel Hayward - Last Filed: 06/16/22 03:31> - Lab Data Result diagrams: 06/16/22 04:35 06/16/22 04:35 <Jimmy Acosta - Last Filed: 06/16/22 06:23> - Medical Decision Making This is a 41-year-old male who presents to the emergency department for alcohol intoxication. Lab work for alcohol intoxication obtained. Urinalysis and urine drug screen were also ordered. Patient started on IV fluids and given a dose of Zofran. CIWA protocol initiated. Case signed out to ED attending. (Marybel Hayward) Patient is sent admit to me pending results of laboratory studies. CT brain showed no acute intracranial process. Lavatory studies are remarkable for some electrolyte abnormalities as well as a acute alcohol intoxication a 456. No other acute complaints at this time. Will be admitted pending sobriety. Farhat xie does have mildly elevated LFTs and amylase and lipase. Denies any abdominal pain on exam. No nausea or vomiting. I spoke with the admitting physician, Dr. Jon who was in agreement this plan. (Jimmy Acosta) - Lab Data Lab Results 06/16/22 06/16/22 Range/Units 04:35 04:35 WBC 2.8 L (3.8-10.6) k/uL RBC 4.05 L (4.30-5.90) m/uL Hgb 11.0 L (13.0-17.5) gm/dL Hct 35.5 L (39.0-53.0) % MCV 87.8 (80.0-100.0) fL MCH 27.2 (25.0-35.0) pg MCHC 31.0 (31.0-37.0) g/dL RDW 19.8 H (11.5-15.5) % Plt Count 70 L (150-450) k/uL MPV 10.2 Neutrophils % 48 % Lymphocytes % 37 % Monocytes % 10 % Eosinophils % 1 % Basophils % 1 % Neutrophils # 1.3 (1.3-7.7) k/uL Lymphocytes # 1.0 (1.0-4.8) k/uL Monocytes # 0.3 (0-1.0) k/uL Eosinophils # 0.0 (0-0.7) k/uL Basophils # 0.0 (0-0.2) k/uL Anisocytosis Slight Sodium 135 L (137-145) mmol/L Potassium 4.4 (3.5-5.1) mmol/L Chloride 96 L (98-107) mmol/L Carbon Dioxide 19 L (22-30) mmol/L Anion Gap 20 mmol/L BUN 5 L (9-20) mg/dL Creatinine 0.62 L (0.66-1.25) mg/dL Est GFR (CKD-EPI)AfAm >90 (>60 ml/min/1.73 sqM) Est GFR (CKD-EPI)NonAf >90 (>60 ml/min/1.73 sqM) Glucose 102 H (74-99) mg/dL Calcium 8.5 (8.4-10.2) mg/dL Phosphorus 4.1 (2.5-4.5) mg/dL Magnesium 1.5 L (1.6-2.3) mg/dL Total Bilirubin 1.5 H (0.2-1.3) mg/dL AST 239 H (17-59) U/L ALT 69 H (4-49) U/L Alkaline Phosphatase 198 H (38-126) U/L Creatine Kinase 188 H (55-170) U/L Total Protein 9.4 H (6.3-8.2) g/dL Albumin 4.6 (3.5-5.0) g/dL Amylase 114 H (30-110) U/L Lipase 315 H (23-300) U/L Serum Alcohol 456 H* mg/dL Disposition <Marybel Hayward - Last Filed: 06/16/22 03:31> Time of Disposition: 06:00 <Jimmy Acosta - Last Filed: 06/16/22 06:23> Clinical Impression: Alcohol intoxication Disposition: ADMITTED IP TO THIS HOSP Condition: Stable Referrals: None,Stated [Primary Care Provider] - 1-2 days
[2022-06-16 05:18] LABS: Anisocytosis Slight; Basophils % (A) 1 %; Eosinophils % (A) 1 %; HCT 35.5 % (39.0-53.0); Lymphocytes % (A) 37 %; MCH 27.2 pg (25.0-35.0); MCV 87.8 fL (80.0-100.0); Mean Platelet Volume 10.2; Monocytes # (A) 0.3 k/uL (0-1.0); Monocytes % (A) 10 %; Neutrophils # (A) 1.3 k/uL (1.3-7.7); Neutrophils % (A) 48 %; RBC 4.05 m/uL (4.30-5.90); RDW 19.8 % (11.5-15.5); WBC 2.8 k/uL (3.8-10.6)
[2022-06-16 05:21] LABS: Platelet Count 70 k/uL (150-450)
[2022-06-16 05:22] LABS: ALT 69 U/L (4-49); AST 239 U/L (17-59); African American GFR (CKD) >90 (>60 ml/min/1.73 sqM); Albumin 4.6 g/dL (3.5-5.0); Alkaline Phosphatase 198 U/L (38-126); Amylase 114 U/L (30-110); Anion Gap 20 mmol/L; Blood Urea Nitrogen 5 mg/dL (9-20); Calcium 8.5 mg/dL (8.4-10.2); Carbon Dioxide 19 mmol/L (22-30); Chloride 96 mmol/L (98-107); Creatine Kinase 188 U/L (55-170); Glucose 102 mg/dL (74-99); Lipase 315 U/L (23-300); Magnesium 1.5 mg/dL (1.6-2.3); Non-African American GFR(CKD) >90 (>60 ml/min/1.73 sqM); Phosphorus 4.1 mg/dL (2.5-4.5); Potassium 4.4 mmol/L (3.5-5.1); Sodium 135 mmol/L (137-145); Total Bilirubin 1.5 mg/dL (0.2-1.3); Total Protein 9.4 g/dL (6.3-8.2)
[2022-06-16 05:31] LABS: Alcohol 456 mg/dL
--- NOTE | 2022-06-16 05:50 | CT ---
EXAMINATION TYPE: CT brain wo con DATE OF EXAM: 06/16/2022 COMPARISON: 04/24/2022 HISTORY: ams CT DLP: 1188.4 mGycm Automated exposure control for dose reduction was used. Ventricles of normal size. There is no mass effect nor midline shift. No sign of intracranial hemorrh age. The calvarium is intact. There is mucosal thickening right maxillary sinus. There is normal aera tion of the mastoid sinuses. Skull base is intact. No focal bone destruction. IMPRESSION: Negative CT scan of the brain. Mild right maxillary sinusitis. Brain not changed compared to old exam .
[2022-06-16] MEDS ORDERED: NALOXONE 0.4 MG/ML 1 ML VIAL IV PRN (06:21)
[2022-06-16] MEDS ORDERED: ONDANSETRON 4 MG/2 ML VIAL IVP PRN (06:21)
[2022-06-16] MEDS ORDERED: SODIUM CHLORIDE 0.9% 1,000 ML IV SCH (06:30)
[2022-06-16 08:57] LABS: Appearance,Urine Clear (Clear); Bilirubin,Urine Negative (Negative); Blood,Urine Negative (Negative); Color,Urine Colorless; Glucose,Urine (UA) Negative (Negative); Ketones,Urine Negative (Negative); Leukocyte Esterase,Urine Negative (Negative); Nitrite,Urine Negative (Negative); Protein,Urine Negative (Negative); Specific Gravity,Urine 1.002 (1.001-1.035); Urobilinogen,Urine <2.0 mg/dL (<2.0)
[2022-06-16 09:08] LABS: Phencyclidine Screen,Urine Not Detected (NotDetected); Urn Cannabinoid Scrn Not Detected (NotDetected)
[2022-06-16 09:09] LABS: Amphetamine Screen,Urine Not Detected (NotDetected); Barbiturate Screen,Urine Not Detected (NotDetected); Benzodiazepines Screen,Urine Not Detected (NotDetected); Cocaine Screen,Urine Not Detected (NotDetected); Methadone Screen, Urine Not Detected (NotDetected); Opiate Screen,Urine Not Detected (NotDetected); Oxycodone Screen, Urine Not Detected (NotDetected); Tricyclic Antidepressant,Urine Not Detected (NotDetected)
[2022-06-16] MEDS: LACTATED RINGERS 1,000 ML IV SCH ×2 (14:16→22:55)
[2022-06-16] MEDS ORDERED: Magnesium Replacement Protocol 1 EACH MISC MISCELLANE PRN (14:23)
--- NOTE | 2022-06-16 16:40 | P.HPIM ---
History of Present Illness H&P Date: 06/16/22 Chief Complaint: Alcohol intoxication Patient is a 41-year-old male with past medical history of alcohol dependence, seizure history?, homelessness presented with acute alcohol intoxication. Patient claims that he drinks 4-5 tall cans of beers and liquor every day. His last drink was on night of 06/15/22. He claims that he had previous admissions for alcohol intoxication, alcohol withdrawal, withdrawal seizures. He is unsure whether he had delirium tremens in the past. Patient is currently homeless and goes. He claims that he will stay with his close friend/sister once his discharge from the hospital. He is unsure about any other past medical history, does not have any PCP, and does not take any medications. Currently he is feeling a little dizzy, and prefers to stay in bed. He denies any chest pain, shortness of breath, nausea, vomiting, abdominal pain, diarrhea, constipation, urinary complaints. In the ED, patient's temperature was 95 which improved to 98.4. His blood pressure was 131/101, saturating at 95% on room air, heart rate of 79, and respiratory rate of 14. He was also found to have magnesium of 1.5, lipase of 315, alcohol levels of [address] head was unremarkable for any acute pathology. It did show mild right maxillary sinusitis. Pertinent positives and negatives as discussed in HPI, a complete review of systems was performed and all other systems are negative. Patient seen and examined at bedside. Vital signs reviewed General: nontoxic, no distress, appears at stated age, intoxicated Derm: warm, dry Head: atraumatic, normocephalic, symmetric Eyes: EOMI, no lid lag, anicteric sclera, pupils equal round reactive to light ENT: Nose and ears atraumatic Neck: No thyromegaly, trachea midline, supple Mouth: no lip lesion, mucus membranes moist Cardiovascular: S1S2 reg, no murmur, no edema, Lungs: clear to auscultation bilateral, no rhonchi, no rales, no wheeze, no accessory muscle use Abdominal: soft, nontender to palpation, no guarding, no appreciable organomegaly, normal bowel sounds Ext: no gross muscle atrophy, muscle strength muscle strength 5 out of 5 in all 4 extremities, no contractures Neuro: CN II-XII grossly intact Psych: Alert, oriented, appropriate affect Assessment/Plan: Acute alcohol intoxication -On IV fluids -Thiamine -Ativan when necessary based on CIWA score -He claims that he will be going to [facility] for rehab after discharge Hypomagnesemia -Replete Elevated CK -No evidence of trauma, may have been down for a while -We will repeat CK to see if it is downtrending Transaminitis -Given ratio of AST to ALT, likely alcohol related -Previous right upper quadrant ultrasound on 10/16/21 showed hepatomegaly with probable hepatic steatosis versus hepatocellular disease Pancytopenia - Likely secondary to alcohol use Homelessness -Currently going from house to house -Be staying with his friend/sister once his discharge The patient is admitted with an anticipated less than 2 midnight stay for evaluation and management of alcohol intoxication. CODE STATUS: Full code DVT prophylaxis: Lovenox Anticipated discharge date: 06/17/20. A total of 45 minutes was spent on the care of this complex patient more than 50% of the time was spent in counseling and care coordination. Past Medical History Past Medical History: Hypertension, Seizure Disorder Additional Past Medical History / Comment(s): ABSCESS History of Any Multi-Drug Resistant Organisms: None Reported Additional Past Surgical History / Comment(s): LEFT LEG SURGERY R/T TRAUMA, jaw Past Anesthesia/Blood Transfusion Reactions: No Reported Reaction Past Psychological History: No Psychological Hx Reported Smoking Status: Current every day smoker Past Alcohol Use History: Abuse, Daily Past Drug Use History: None Reported - Past Family History Mother Family Medical History: Diabetes Mellitus Additional Family Medical History / Comment(s): from sudhakar johnsons syndrome Father Family Medical History: Diabetes Mellitus Additional Family Medical History / Comment(s): from dm complications Medications and Allergies Home Medications Medication Instructions Recorded Confirmed Type No Known Home Medications 05/10/22 06/16/22 History Allergies Allergy/AdvReac Type Severity Reaction Status Date / Time No Known Allergies Allergy Verified 06/16/22 10:31 Physical Exam Vitals: Vital Signs Temp Pulse Pulse Resp BP BP Pulse Ox 06/16/22 14:40 98.1 F 97 18 109/74 98 06/16/22 08:53 97.5 F L 84 18 133/87 98 06/16/22 07:48 98.4 F 92 16 112/79 95 06/16/22 05:00 86 14 113/79 93 L 06/16/22 03:09 95.0 F L 79 14 131/101 95 Intake and Output 06/16/22 06/16/22 06/16/22 06:59 14:59 22:59 Output Total 825 Balance -825 Output: Urine 825 Other: Weight 72.575 kg Results CBC & Chem 7: 06/16/22 04:35 06/16/22 04:35 Labs: Abnormal Lab Results - Last 24 Hours (Table) 06/16/22 06/16/22 Range/Units 04:35 04:35 WBC 2.8 L (3.8-10.6) k/uL RBC 4.05 L (4.30-5.90) m/uL Hgb 11.0 L (13.0-17.5) gm/dL Hct 35.5 L (39.0-53.0) % RDW 19.8 H (11.5-15.5) % Plt Count 70 L (150-450) k/uL Sodium 135 L (137-145) mmol/L Chloride 96 L (98-107) mmol/L Carbon Dioxide 19 L (22-30) mmol/L BUN 5 L (9-20) mg/dL Creatinine 0.62 L (0.66-1.25) mg/dL Glucose 102 H (74-99) mg/dL Magnesium 1.5 L (1.6-2.3) mg/dL Total Bilirubin 1.5 H (0.2-1.3) mg/dL AST 239 H (17-59) U/L ALT 69 H (4-49) U/L Alkaline Phosphatase 198 H (38-126) U/L Creatine Kinase 188 H (55-170) U/L Total Protein 9.4 H (6.3-8.2) g/dL Amylase 114 H (30-110) U/L Lipase 315 H (23-300) U/L Serum Alcohol 456 H* mg/dL
[2022-06-16] MEDS: MAGNESIUM SULFATE-D5W PMX 1 GM in DEXTROSE/WATER 1 100ML.BAG IVPB SCH ×2 (16:43→18:12)
[2022-06-16] MEDS: THIAMINE 100 MG TAB PO SCH (16:48)
[2022-06-17] MEDS: LACTATED RINGERS 1,000 ML IV SCH ×3 (01:31→21:52)
[2022-06-17] MEDS ORDERED: LIDOCAINE VISCOUS 2% 15 ML CUP MUCOUS MEM ONE (09:12)
[2022-06-17] MEDS: ENOXAPARIN 40 MG/0.4 ML SYRINGE SQ SCH (09:41)
[2022-06-17] MEDS: THIAMINE 100 MG TAB PO SCH ×2 (09:42→18:19)
[2022-06-17 11:50] LABS: African American GFR (CKD) 136.8 (60.0-200.0); Albumin 3.8 g/dL (3.8-4.9); Albumin/Globulin Ratio 0.9 (1.60-3.17); Anion Gap 11.9 mmol/L (10.00-18.00); BUN/Creat Ratio 4.29 Ratio (12.00-20.00); Calcium 9.1 mg/dL (8.7-10.3); Carbon Dioxide 25.1 mmol/L (20.0-27.5); Globulin 4.2 g/dL (1.6-3.3); Magnesium 1.8 mg/dL (1.5-2.4); Potassium 3.9 mmol/L (3.5-5.5); Total Bilirubin 1.7 mg/dL (0.30-1.20)
--- NOTE | 2022-06-17 13:44 | P.PN ---
Subjective Progress Note Date: 06/17/22 Principal diagnosis: alcohol intoxication Hospital course: 41-year-old male with past medical history of alcohol dependence, seizure history, homelessness initially presented with acute alcohol intoxication. His symptoms have slightly improved with IV fluids. Subjective: Patient seen and examined at bedside. Patient claims that his stomach is still upset. He feels nauseated, and had some vomiting as well. He is not able to tolerate oral diet. He denies any chest pain currently, palpitations, urinary or bowel complaints. He does feel tremulous and unsteady on his feet. He is also complaining about lower lip pain, from a recent jaw surgery. Pertinent positives and negatives as discussed above, a complete review of systems was performed and all other systems are negative. General: nontoxic, no distress, appears at stated age Derm: warm, dry Head: atraumatic, normocephalic, symmetric Eyes: EOMI, no lid lag, anicteric sclera, pupils equal round reactive to light ENT: Nose and ears atraumatic Neck: No thyromegaly, trachea midline, supple Mouth: no lip lesion or edema noticed, mucus membranes moist Cardiovascular: S1S2 reg, no murmur, no edema, Lungs: clear to auscultation bilateral, no rhonchi, no rales, no wheeze, no accessory muscle use Abdominal: soft, nontender to palpation, no guarding, no appreciable organomegaly, normal bowel sounds Ext: no gross muscle atrophy, muscle strength muscle strength 5 out of 5 in all 4 extremities, no contractures Neuro: CN II-XII grossly intact Psych: Alert, oriented, appropriate affect Assessment and plan: Acute alcohol intoxication -resolving -On IV fluids -Thiamine -Ativan when necessary based on CIWA score -He claims that he will be going to [facility] for rehab after discharge Lower lip pain -No significant edema or erythema noticed -viscous lidocaine solution 1 Hypomagnesemia - improved with repletion Elevated CK -No evidence of trauma, may have been down for a while - downtrending Transaminitis -Given ratio of AST to ALT, likely alcohol related -Previous right upper quadrant ultrasound on 10/16/21 showed hepatomegaly with probable hepatic steatosis versus hepatocellular disease Pancytopenia - Likely secondary to alcohol use Homelessness -Currently going from house to house -Be staying with his friend/sister once his discharge DVT prophylaxis: Lovenox Full code Disposition: Likely be discharged once oral intake improves Objective - Vital Signs Vital signs: Vital Signs Temp 98.3 F 06/17/22 07:00 Pulse 87 06/17/22 07:00 Resp 18 06/17/22 07:00 BP 143/91 06/17/22 07:00 Pulse Ox 98 06/17/22 07:00 FiO2 Intake & Output 06/16/22 06/17/22 06/17/22 18:59 06:59 18:59 Output Total 825 500 Balance -825 -500 Output: Urine 825 500 Other: # Voids 1 - Labs CBC & Chem 7: 06/16/22 04:35 06/17/22 06:14
--- NOTE | 2022-06-17 16:53 | P.EN ---
CTSP: Indication: fall Arrived on Scene to find: Patient laying on the floor with deep respirations Patient seen on floor. He was breathing deeply and not communicating with staff. However nurse reports that he was watching her move around the room. Nurses were initially concerned that he may have had seizure activities due to jerking in his extremities. However this was not symmetric, rhythmic. I then told nursing that patient should not get Ativan until he has returned to bed as it could make him more sedated. Patient then started having jerking movements on floor. Again these were in all 4 extremities and were not symmetric or rhythmic. He was flailing in multiple directions. He then immediately got up without difficulty. He had no post ictal state. No overt loss of bowel or bladder noted. Patient was diaphoretic. He immediately stated that he "did not feel good. Patient was on [employer] remote patient monitoring system. They stated that patient got out of bed and was walking. He then lowered himself to the floor and feel to the side what they could see. They did not believe that he struck his head. Patient was then asking for Ativan on his way to CT. Vital signs reviewed General: nontoxic, no distress, appears at stated age Derm: warm, dry Head: atraumatic, normocephalic, symmetric Ext: no gross muscle atrophy, no edema, no contractures Neuro: No focal neuro deficits, walking without difficulty Psych: Alert, oriented, appropriate affect once back in bed Assessment: Fall Jerking movements Plan: Head CT Monitor Neurochecks Disposition: remain on floor Notified: Dr. Meehan attending physician
--- NOTE | 2022-06-17 17:14 | CT ---
EXAMINATION TYPE: CT brain wo con DATE OF EXAM: 06/17/2022 COMPARISON: Yesterday HISTORY: Possible seizure CT DLP: 1058.0 mGycm Automated exposure control for dose reduction was used. Images of the brain obtained with no contrast. Ventricles and sulci appear normal. There is no mass effect or midline shift. No sign of intracranial hemorrhage. The calvarium is intact. No sign of cerebral edema. Skull base is intact. There is mild maxillary sinus mucosal thickening on the right side. IMPRESSION: Negative CT scan of the brain. Minimal right-sided maxillary sinusitis. No change.
[2022-06-17] MEDS: LORATADINE 10 MG TAB PO SCH (18:19)
[2022-06-17] MEDS ORDERED: chlordiazePOXIDE 25 MG CAP PO STA (23:49)
[2022-06-18] MEDS: LACTATED RINGERS 1,000 ML IV SCH (00:10)
[2022-06-18] MEDS: LORATADINE 10 MG TAB PO SCH (07:44)
[2022-06-18] MEDS: ENOXAPARIN 40 MG/0.4 ML SYRINGE SQ SCH (07:44)
[2022-06-18] MEDS: THIAMINE 100 MG TAB PO SCH (07:44)
[2022-06-18 07:56] VITALS: BP 133/81; PULSE 92; RESP 18; TEMP 98.3
--- NOTE | 2022-06-18 09:35 | P.DS ---
Providers Date of admission: 06/16/22 06:21 Expected date of discharge: 06/18/22 Attending physician: Cornelio Jon MD Primary care physician: Stated None Hospital Course: Discharge Diagnosis: Acute alcohol intoxication Hypomagnesemia Elevated CK Malingering Transaminitis Pancytopenia Homelessness Hospital Course: 41-year-old homeless male with history of alcohol dependence, questionable seizure history presented initially with acute alcohol intoxication. His symptoms remarkably improved with IV fluids. He also had hypomagnesemia and elevated CK which improved with IV fluids as well. Transaminitis and pancytopenia likely secondary to chronic alcohol use. During his hospitalization, patient continued to perseverate about getting benzodiazepines. He had 2 events during his stay where he lowered himself on the floor and had rhythmic movements, but was conversant with the nursing staff and had no postictal period. He computed tomography scan of the head was unremarkable for any acute pathology. After these episodes, patient sought for benzodiazepine again. This was likely secondary to malingering. Patient claims that he will likely go to alcohol rehab as an outpatient. Patient seen and examined at bedside. Vital signs reviewed and stable. General: nontoxic, no distress, appears at stated age Derm: warm, dry Head: atraumatic, normocephalic, symmetric Eyes: EOMI, no lid lag, anicteric sclera Mouth: no lip lesion, mucus membranes moist Cardiovascular: S1S2 reg, no murmur Lungs: CTA bilateral, no rhonchi, no rales , no accessory muscle use Abdominal: soft, nontender to palpation, no guarding, no appreciable organomegaly Ext: no gross muscle atrophy, no edema, no contractures Neuro: CN II-XI grossly intact, no focal neuro deficits Psych: Alert, oriented, appropriate affect A total of 33 minutes of time were spent preparing this complex discharge summary. Patient was discharged on 06/18/22 at 7:31. Patient Condition at Discharge: Stable Plan - Discharge Summary New Discharge Prescriptions: New Thiamine [Vitamin B-1] 100 mg PO BID-W/MEALS #30 tab Discharge Medication List Thiamine [Vitamin B-1] 100 mg PO BID-W/MEALS #30 tab 06/18/22 [Rx] Follow up Appointment(s)/Referral(s): None,Stated [Primary Care Provider] - 1-2 days Patient Instructions/Handouts: Alcohol Intoxication (GEN) Activity/Diet/Wound Care/Special Instructions: Please seek rehab for alcohol once discharged. Discharge Disposition: HOME SELF-CARE
== END 2022-06-18 09:45 | disposition home or self-care (01) ==
LOC: EC 02:51 → 6NMEDSUR 06:21
PROVIDERS: ADMIT Internal Medicine; ATTEND Internal Medicine
DX: F10.220 Alcohol dependence with intoxication, uncomplicated (principal); E83.42 Hypomagnesemia; R74.8 Abnormal levels of other serum enzymes; R74.01 Elevation of levels of liver transaminase levels; D61.818 Other pancytopenia; I10 Essential (primary) hypertension; G40.909 Epilepsy, unspecified, not intractable, without status epilepticus; R79.89 Other specified abnormal findings of blood chemistry; F17.200 Nicotine dependence, unspecified, uncomplicated; J32.0 Chronic maxillary sinusitis; Z59.00 Homelessness unspecified; Z83.3 Family history of diabetes mellitus; Z76.5 Malingerer [conscious simulation]; Y90.8 Blood alcohol level of 240 mg/100 ml or more
CPT/HCPCS: 96361 ×3; 96366; 96372 ×3; 96365; 96375; 99285; 36415; 80053 ×2; 82150; 82550 ×2; 83690; 83735 ×2; 84100; 85025; 81003; 80306; 70450 ×2; G0378 ×3; G0480; J3411; J2405; J1650 ×2; J3475; 80320

== ENCOUNTER 2022-07-03 16:18 | Observation (INO) | payer OTHER ==
[2022-07-03] MEDS ORDERED: SODIUM CHLORIDE 0.9% 1,000 ML IV STA (16:28)
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
[2022-07-03 16:53] LABS: INR 1.2 (<1.2); Prothrombin Time 12.4 sec (9.0-12.0)
[2022-07-03 16:54] LABS: ALT 55 U/L (4-49); AST 237 U/L (17-59); African American GFR (CKD) >90 (>60 ml/min/1.73 sqM); Albumin 4.5 g/dL (3.5-5.0); Alkaline Phosphatase 156 U/L (38-126); Anion Gap 20 mmol/L; Blood Urea Nitrogen 3 mg/dL (9-20); Calcium 8.7 mg/dL (8.4-10.2); Carbon Dioxide 20 mmol/L (22-30); Chloride 93 mmol/L (98-107); Glucose 96 mg/dL (74-99); Non-African American GFR(CKD) >90 (>60 ml/min/1.73 sqM); Potassium 4.3 mmol/L (3.5-5.1); Sodium 133 mmol/L (137-145); Total Bilirubin 2.2 mg/dL (0.2-1.3); Total Protein 8.8 g/dL (6.3-8.2)
[2022-07-03 16:58] LABS: Anisocytosis Slight; HCT 33.1 % (39.0-53.0); HGB 10.4 gm/dL (13.0-17.5); MCH 27.6 pg (25.0-35.0); MCHC 31.3 g/dL (31.0-37.0); MCV 88.1 fL (80.0-100.0); Mean Platelet Volume 9.9; RBC 3.76 m/uL (4.30-5.90); RDW 19.3 % (11.5-15.5); WBC 4.6 k/uL (3.8-10.6)
[2022-07-03 16:59] LABS: Platelet Count 109 k/uL (150-450)
[2022-07-03 17:08] LABS: Alcohol 512 mg/dL
[2022-07-03 17:19] LABS: Amphetamine Screen,Urine Not Detected (NotDetected); Barbiturate Screen,Urine Not Detected (NotDetected); Benzodiazepines Screen,Urine Detected (NotDetected); Cocaine Screen,Urine Not Detected (NotDetected); Methadone Screen, Urine Not Detected (NotDetected); Opiate Screen,Urine Not Detected (NotDetected); Oxycodone Screen, Urine Not Detected (NotDetected); Phencyclidine Screen,Urine Not Detected (NotDetected); Tricyclic Antidepressant,Urine Not Detected (NotDetected); Urn Cannabinoid Scrn Not Detected (NotDetected)
[2022-07-03 17:56] LABS: Basophils # (M) 0.09 k/uL (0-0.2); Eosinophils # (M) 0.09 k/uL (0-0.7); Lymphocytes # (M) 1.75 k/uL (1.0-4.8); Monocytes # (M) 0.32 k/uL (0-1.0); Neutrophils # (M) 2.35 k/uL (1.3-7.7); Neutrophils % (M) 51 %; Nucleated Red Blood Cells 0 /100 WBC (0-0); Total Cells Counted 100
[2022-07-03 17:57] LABS: Target Cells Present
[2022-07-03] MEDS ORDERED: SODIUM CHLORIDE 0.9% 1,000 ML with THIAMINE 100 MG, FOLIC ACID 1 MG IV ONE ×3 (18:00)
[2022-07-03] MEDS ORDERED: NALOXONE 0.4 MG/ML 1 ML VIAL IV PRN (18:14)
[2022-07-03] MEDS ORDERED: THIAMINE 100 MG/ML 2 ML VIAL IM STA (18:15)
[2022-07-03] MEDS ORDERED: LORazepam 2 MG/ML INJ IV PRN ×3 (18:15)
--- NOTE | 2022-07-04 02:50 | P.HPIM ---
History of Present Illness H&P Date: 07/03/22 Chief Complaint: alcohol intoxication 41 year old male with alcohol dependence and abuse. Patient unable to provide any meaningful history he continues to be intoxicated severely. EMS brought him to the hospital for evaluation, EGD mentioned that the patient himself called EMS as he was not feeling well. Upon arrival patient was intoxicated he is known to have similar presentation in the past with acute alcohol intoxication. At this time patient unable to provide any meaningful history Workup in the ED showed chronic anemia, thrombocytopenia, elevated liver enzymes Severe acute alcohol intoxication with blood alcohol level of 519 Review of Systems ROS unobtainable: due to mental status Past Medical History Past Medical History: Hypertension, Seizure Disorder Additional Past Medical History / Comment(s): ABSCESS History of Any Multi-Drug Resistant Organisms: None Reported Additional Past Surgical History / Comment(s): LEFT LEG SURGERY R/T TRAUMA, jaw Past Anesthesia/Blood Transfusion Reactions: No Reported Reaction Past Psychological History: No Psychological Hx Reported Smoking Status: Current every day smoker Past Alcohol Use History: Abuse, Daily Past Drug Use History: None Reported - Past Family History Mother Family Medical History: Diabetes Mellitus Additional Family Medical History / Comment(s): from sudhakar johnsons syndrome Father Family Medical History: Diabetes Mellitus Additional Family Medical History / Comment(s): from dm complications Medications and Allergies Home Medications Medication Instructions Recorded Confirmed Type Thiamine [Vitamin B-1] 100 mg PO BID-W/MEALS #30 tab 06/18/22 07/03/22 Rx Allergies Allergy/AdvReac Type Severity Reaction Status Date / Time No Known Allergies Allergy Verified 07/03/22 17:12 Physical Exam Vitals: Vital Signs Temp Pulse Pulse Resp BP BP Pulse Ox 07/03/22 21:39 97.7 F 97 16 104/66 100 07/03/22 20:42 88 15 129/83 98 07/03/22 16:20 97.4 F L 99 18 136/99 95 Intake and Output 07/03/22 07/03/22 07/04/22 14:59 22:59 06:59 Other: # Voids 1 Weight 73.663 kg Constitutional: No acute distress, patient remains acutely intoxicated with delirium Eyes: Anicteric sclerae, moist conjunctiva, Pupils equal round reactive to light ENMT: NC/AT Neck: Supple, no masses, or JVD No carotid bruits No thyromegaly Lungs: Clear to auscultation Clear to percussion Normal respiratory effort, no accessory muscle use Cardiovascular: Heart regular in rate and rhythm, No murmurs, gallops, or rubs No peripheral edema Abdominal: Soft Nontender, no guarding, rebound or rigidity Abdomen moving with respiration Normoactive bowel sounds No hepatomegaly, No splenomegaly No palpable mass No abdominal wall hernia noted Skin: Normal temperature, tone, texture, turgor Extremities: No digital cyanosis No clubbing Pedal pulses intact and symmetrical Radial pulses intact and symmetrical No calf tenderness Psychiatric: Patient is intoxicated and unable to participate in the interview and exam Neuro unable to perform proper neuro exam Lymphatics: no palpable cervical or supraclavicular lymph nodes Results CBC & Chem 7: 07/03/22 16:32 07/03/22 16:32 Labs: Abnormal Lab Results - Last 24 Hours (Table) 07/03/22 07/03/22 07/03/22 Range/Units 16:32 16:32 16:32 RBC 3.76 L (4.30-5.90) m/uL Hgb 10.4 L (13.0-17.5) gm/dL Hct 33.1 L (39.0-53.0) % RDW 19.3 H (11.5-15.5) % Plt Count 109 L D (150-450) k/uL PT 12.4 H (9.0-12.0) sec INR 1.2 H (<1.2) Sodium 133 L (137-145) mmol/L Chloride 93 L (98-107) mmol/L Carbon Dioxide 20 L (22-30) mmol/L BUN 3 L (9-20) mg/dL Creatinine 0.60 L (0.66-1.25) mg/dL Total Bilirubin 2.2 H (0.2-1.3) mg/dL AST 237 H (17-59) U/L ALT 55 H (4-49) U/L Alkaline Phosphatase 156 H (38-126) U/L Total Protein 8.8 H (6.3-8.2) g/dL U Benzodiazepines Scrn (NotDetected) Serum Alcohol 512 H* mg/dL 07/03/22 Range/Units 16:45 RBC (4.30-5.90) m/uL Hgb (13.0-17.5) gm/dL Hct (39.0-53.0) % RDW (11.5-15.5) % Plt Count (150-450) k/uL PT (9.0-12.0) sec INR (<1.2) Sodium (137-145) mmol/L Chloride (98-107) mmol/L Carbon Dioxide (22-30) mmol/L BUN (9-20) mg/dL Creatinine (0.66-1.25) mg/dL Total Bilirubin (0.2-1.3) mg/dL AST (17-59) U/L ALT (4-49) U/L Alkaline Phosphatase (38-126) U/L Total Protein (6.3-8.2) g/dL U Benzodiazepines Scrn Detected H (NotDetected) Serum Alcohol mg/dL Assessment and Plan Assessment: Acute alcohol intoxication with delirium Chronic anemia Thrombocytopenia secondary to above Elevated liver enzymes secondary to alcohol abuse Plan Fall precautions Seizure precautions Benzos per CIWA scale IV fluid hydration normal saline Thiamine SCDs for DVT prophylaxis Full code
[2022-07-04 13:18] VITALS: BP 137/86; PULSE 100; RESP 16; TEMP 98.7
--- NOTE | 2022-07-04 14:08 | P.DS ---
Providers Date of admission: 07/03/22 18:26 Expected date of discharge: 07/04/22 Attending physician: Kavita Castellanos DO Primary care physician: Stated None Hospital Course: Discharge Diagnosis: Alcohol intoxication in an active alcoholic. Normocytic normochromic anemia, chronic and stable Thrombocytopenia, chronic above baseline levels. Transaminitis, chronic secondary to alcoholism Hospital Course: Patient is a 41-year-old male with a past medical history of daily alcohol abuse with a history of alcohol withdrawal seizures. Patient presented to the emergency department on 07/03/22 with a chief complaint of alcohol intoxication. He underwent full evaluation in the emergency department and was found to have normocytic normochromic anemia with hemoglobin of 10.4, thrombocytopenia with platelet count of 109, transaminitis with AST 237, ALT 55, and alkaline phosphatase of 156 as well as hyperbilirubinemia with bilirubin of 2.2. These labs are all chronic abnormalities and currently at or above baseline normals for patient. Serum alcohol 512. Urine drug screen positive for benzodiazepines. Patient monitored overnight with IV fluid hydration and placed on CIWA protocol. Patient clinically sober at this time and reportedly has made arrangements to be discharged to [place]. Pt is medically stable for discharge at this time. Strongly advised cessation of all alcohol use. Physical examination: Patient seen and examined at bedside. Vital signs reviewed and stable. General: Nontoxic, no distress and appears stated age. Derm: Skin warm and dry, normal coloration for ethnicity. Head: Atraumatic, normocephalic and symmetric. Eyes: EOMs intact, no lid lag, and anicteric sclera Mouth: no lip lesions, mucus membranes moist Cardiovascular: regular rate and rhythm with normal S1S2, no murmur, positive posterior tibial pulses bilaterally, and cap refill < 2 seconds. Lungs: Respirations even, regular, and unlabored on room air. Lungs CTA bilaterally, no rhonchi, no rales, no wheezing, and no accessory muscle usage. Abdominal: soft, nontender to palpation, no guarding, no appreciable organomegaly Ext: ROM intact. No gross muscle atrophy, no edema, no contractures Neuro: Speech clear, face symmetrical and CN II-XII grossly intact with no noted focal neuro deficits Psych: Alert and oriented to person, place, time, and situation. Appropriate and pleasant affect. A total of 31 minutes of time were spent preparing this complex discharge summary. Pt was discharged on 07/04/22 at 2:05 PM Patient Condition at Discharge: Stable Plan - Discharge Summary Discharge Rx Participant: No New Discharge Prescriptions: Continue Thiamine [Vitamin B-1] 100 mg PO BID-W/MEALS #30 tab Discharge Medication List Thiamine [Vitamin B-1] 100 mg PO BID-W/MEALS #30 tab 06/18/22 [Rx] Follow up Appointment(s)/Referral(s): Ok Crump MD [STAFF PHYSICIAN] - 1 Week Patient Instructions/Handouts: Abuse of Alcohol (DC), Alcohol Use Disorder (DC) Activity/Diet/Wound Care/Special Instructions: Activity: As tolerated. Take breaks as needed. Diet: Heart healthy and carb consistent diet. Avoid salts, or foods with hidden salts such as canned or boxed foods and frozen dinners. Extra salt makes your heart work harder and traps the fluid in your body for longer. Special Instructions: Take all of your medications as directed and remember to keep all of your doctor's appointments and follow-up as needed. Strongly recommend cessation of all alcohol use. Your liver enzymes were elevated and you need to follow up and establish care with a primary care doctor to have these reevaluated and closely monitored as you are at high risk of developing alcoholic liver cirrhosis. You are medically stable for discharge to [place]. Thank you for allowing us to participate in your care, it was truly a pleasure having you for our patient!!! Discharge Disposition: HOME SELF-CARE
== END 2022-07-04 15:15 | disposition home or self-care (01) ==
LOC: EC 16:18 → UNDOADMOB 18:14 → 6NMEDSUR 18:14
PROVIDERS: ADMIT Internal Medicine; ATTEND Internal Medicine
DX: F10.220 Alcohol dependence with intoxication, uncomplicated (principal); D53.9 Nutritional anemia, unspecified; D69.59 Other secondary thrombocytopenia; I10 Essential (primary) hypertension; R74.8 Abnormal levels of other serum enzymes; G40.909 Epilepsy, unspecified, not intractable, without status epilepticus; F17.200 Nicotine dependence, unspecified, uncomplicated; R74.01 Elevation of levels of liver transaminase levels; Z83.3 Family history of diabetes mellitus; Y90.8 Blood alcohol level of 240 mg/100 ml or more
CPT/HCPCS: 99285; 36415; 80053; 85025; 85610; 80306; G0378 ×2; G0480; 80320

== ENCOUNTER 2022-07-07 01:50 | Emergency (ER) | payer OTHER ==
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
[2022-07-07 02:58] VITALS: TEMP 98
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
[2022-07-07 06:42] VITALS: BP 135/69; PULSE 60; RESP 17
== END 2022-07-07 06:42 | disposition home or self-care (01) ==
LOC: EC 01:50
DX: S09.90XA Unspecified injury of head, initial encounter (principal); I10 Essential (primary) hypertension; Z87.891 Personal history of nicotine dependence; Y04.2XXA Assault by strike against or bumped into by another person, initial encounter; Y92.410 Unspecified street and highway as the place of occurrence of the external cause
CPT/HCPCS: 70450; 72125; 99284

== ENCOUNTER 2023-03-12 21:48 | Emergency (ER) | payer OTHER ==
[2023-03-12 21:54] VITALS: BP 137/93; PULSE 99; TEMP 98
[2023-03-12 23:44] VITALS: RESP 20
--- NOTE | 2023-03-13 00:27 | ED ---
General Adult HPI - General Chief complaint: Alcohol Stated complaint: ETOH Time Seen by Provider: 03/12/23 21:49 Source: EMS Mode of arrival: EMS - History of Present Illness Initial comments: This is a 42-year-old male who was brought into the emergency department by EMS for being found intoxicated on the street. The patient was reportedly urinating in public and somebody called 911 therefore EMS to bring the patient in. On arrival, the patient was intoxicated however was able to answer all questions appropriately. The patient denied any acute pain or trauma. The patient was resting in bed comfortably. - Related Data Previous Rx's Medication Instructions Recorded Thiamine [Vitamin B-1] 100 mg PO BID-W/MEALS #30 tab 06/18/22 Allergies Allergy/AdvReac Type Severity Reaction Status Date / Time No Known Allergies Allergy Verified 07/03/22 17:12 Review of Systems ROS Statement: Those systems with pertinent positive or pertinent negative responses have been documented in the HPI. ROS Other: All systems not noted in ROS Statement are negative. Past Medical History Past Medical History: Hypertension, Seizure Disorder Additional Past Medical History / Comment(s): ABSCESS History of Any Multi-Drug Resistant Organisms: None Reported Additional Past Surgical History / Comment(s): LEFT LEG SURGERY R/T TRAUMA, jaw Past Anesthesia/Blood Transfusion Reactions: No Reported Reaction Past Psychological History: No Psychological Hx Reported Smoking Status: Former smoker Past Alcohol Use History: None Reported Past Drug Use History: None Reported - Past Family History Mother Family Medical History: Diabetes Mellitus Additional Family Medical History / Comment(s): from sudhakar johnsons syndrome Father Family Medical History: Diabetes Mellitus Additional Family Medical History / Comment(s): from dm complications General Exam Limitations: no limitations General appearance: alert, in no apparent distress, appears intoxicated Head exam: Present: atraumatic, normocephalic, normal inspection Eye exam: Present: normal appearance, PERRL Pupils: Present: normal accommodation ENT exam: Present: normal exam, normal oropharynx, mucous membranes moist Neck exam: Present: normal inspection, full ROM Respiratory exam: Present: normal lung sounds bilaterally Cardiovascular Exam: Present: regular rate, normal rhythm, normal heart sounds GI/Abdominal exam: Present: soft, normal bowel sounds Extremities exam: Present: normal inspection, full ROM Back exam: Present: normal inspection, full ROM Neurological exam: Present: alert, oriented X3, CN II-XII intact Psychiatric exam: Present: normal affect, normal mood Skin exam: Present: warm, dry Course Vital Signs 03/12/23 03/12/23 21:50 23:43 Temperature 98 F Pulse Rate 99 Respiratory 18 20 Rate Blood Pressure 137/93 O2 Sat by Pulse 100 Oximetry Medical Decision Making - Medical Decision Making Was pt. sent in by a medical professional or institution (, DEVIN, [facility] TILER, urgent care, hospital, or half-way...) When possible be specific @ -No Did you speak to anyone other than the patient for history (EMS, parent, family, police, friend...)? What history was obtained from this source @ -Yes, EMS who confirmed the patient was intoxicated however denied of any trauma noted. Did you review nursing and triage notes (agree or disagree)? Why? @ -I reviewed and agree with nursing and triage notes Were old charts reviewed (outside hosp., previous admission, EMS record, old EKG, old radiological studies, urgent care reports/EKG's, half-way records)? Report findings @ -No old charts were reviewed Differential Diagnosis (chest pain, altered mental status, abdominal pain women, abdominal pain men, vaginal bleeding, weakness, fever, dyspnea, syncope, headache, dizziness, GI bleed, back pain, seizure, CVA, palpatations, mental health)? @ -EtOH intoxication, dehydration, electrolyte abnormalities EKG interpreted by me (3pts min.). @ -None X-rays interpreted by me (1pt min.). @ -None done CT interpreted by me (1pt min.). @ -None done U/S interpreted by me (1pt. min.). @ -None done What testing was considered but not performed or refused? (CT, X-rays, U/S, labs)? Why? @ -None What meds were considered but not given or refused? Why? @ -None Did you discuss the management of the patient with other professionals ( professionals i.e. DEVIN Woo, [facility] T[facility]ER, lab, RT, psych nurse, manager social responsibility, grease and tallow pumper, teacher, cra officer, family caseworker)? Give summary @ -No Was smoking cessation discussed for >3mins.? @ -No Was critical care preformed (if so, how long)? @ -No Were there social determinants of health that impacted care today? How? (Homelessness, low income, unemployed, alcoholism, drug addiction, transportation, low edu. Level, literacy, decrease access to med. care, alf, rehab)? @ -No Was there de-escalation of care discussed even if they declined (Discuss DNR or withdrawal of care, Hospice)? DNR status @ -No What co-morbidities impacted this encounter? (DM, HTN, Smoking, COPD, CAD, Cancer, CVA, ARF, Chemo, Hep., AIDS, mental health diagnosis, sleep apnea, morbid obesity)? @ -None Was patient admitted / discharged? Hospital course, mention meds given and route, prescriptions, significant lab abnormalities, going to OR and other pertinent info. @ -The patient was seen and evaluated emergency department. Physical exam, the patient was resting in bed without any acute distress. The patient was intoxicated however was able to answer all questions appropriately. Because the patient denied of any pain or complaints, the patient denied of any laboratory workup at this time. The patient was allowed to eat and drink in the emergency department and did have his ride called. The patient continued to remain stable without any further acute complaints. The patient on reevaluation was able to answer all questions appropriately and able to intubate the emergency department without any acute assistance. The patient was clinically sober at this time and was stable for discharge home. The patient was observed emergency department for several hours and denied any further complaints and was sleeping comfortable. The patient was agreeable to this plan and was discharged home in stable condition. Undiagnosed new problem with uncertain prognosis? @ -No Drug Therapy requiring intensive monitoring for toxicity (Heparin, Nitro, Insulin, Cardizem)? @ -No Were any procedures done? @ -No Diagnosis/symptom? @ -EtOH intoxication Acute, or Chronic, or Acute on Chronic? @ -Acute Uncomplicated (without systemic symptoms) or Complicated (systemic symptoms)? @ -Uncomplicated Side effects of treatment? @ -No Exacerbation, Progression, or Severe Exacerbation? @ -No Poses a threat to life or bodily function? How? (Chest pain, [place], [place], pneumonia, PE, COPD, DKA, ARF, appy, cholecystitis, CVA, Diverticulitis, Homicidal, Suicidal, threat to staff... and all critical care pts) @ -No Disposition Clinical Impression: Alcoholic intoxication Disposition: HOME SELF-CARE Condition: Stable Instructions (If sedation given, give patient instructions): Alcohol Intoxication (ED) Is patient prescribed a controlled substance at d/c from ED?: No Referrals: None,Stated [Primary Care Provider] - 1-2 days Time of Disposition: 05:00
== END 2023-03-13 07:07 | disposition home or self-care (01) ==
LOC: EC 21:48
DX: F10.129 Alcohol abuse with intoxication, unspecified (principal); I10 Essential (primary) hypertension; Z87.891 Personal history of nicotine dependence
CPT/HCPCS: 99284

== ENCOUNTER 2023-03-14 01:48 | Inpatient (IN) | payer OTHER ==
[2023-03-14 06:09] LABS: ALT 87 U/L (4-49); AST 255 U/L (17-59); African American GFR (CKD) >90 (>60 ml/min/1.73 sqM); Albumin 4.3 g/dL (3.5-5.0); Alkaline Phosphatase 145 U/L (38-126); Anion Gap 17 mmol/L; Blood Urea Nitrogen 9 mg/dL (9-20); Calcium 8.8 mg/dL (8.4-10.2); Carbon Dioxide 21 mmol/L (22-30); Chloride 99 mmol/L (98-107); Glucose 85 mg/dL (74-99); Non-African American GFR(CKD) >90 (>60 ml/min/1.73 sqM); Potassium 4.2 mmol/L (3.5-5.1); Sodium 137 mmol/L (137-145); Total Bilirubin 1.1 mg/dL (0.2-1.3); Total Protein 9.3 g/dL (6.3-8.2)
[2023-03-14 06:20] LABS: Anisocytosis Slight; HCT 43.2 % (39.0-53.0); MCH 28.2 pg (25.0-35.0); MCHC 32.3 g/dL (31.0-37.0); MCV 87.4 fL (80.0-100.0); Mean Platelet Volume 8.9; Platelet Count 110 k/uL (150-450); RBC 4.94 m/uL (4.30-5.90); RDW 18.1 % (11.5-15.5); WBC 2.2 k/uL (3.8-10.6)
[2023-03-14 06:21] LABS: Alcohol 376 mg/dL
[2023-03-14] MEDS ORDERED: SODIUM CHLORIDE 0.9% 1,000 ML IV STA (06:33)
[2023-03-14] MEDS ORDERED: THIAMINE 100 MG/ML 2 ML VIAL IM STA (06:35)
--- NOTE | 2023-03-14 06:36 | ED ---
General Adult HPI - General Chief complaint: Seizure Stated complaint: ETOH Time Seen by Provider: 03/14/23 06:04 Source: patient, RN notes reviewed, old records reviewed Mode of arrival: EMS Limitations: no limitations - History of Present Illness Initial comments: 42-year-old male past medical history significant for alcohol abuse presents to the ED via EMS with a chief complaint of seizure. At this time, patient is currently intoxicated. Patient is unable to give an accurate history and recall if he actually had a seizure. At this time he only complaints of being subjectively weak. He does note a history of DTs. He states that he is an tyrese ry day drinker states that he drinks at least 5 cans of beer a day. States his last alcohol intake was at approximately 1 AM. Denies nausea, anxiety, phono or photophobia, visual or auditory delusions, or headache. CIWA score currently 0. - Related Data Previous Rx's Medication Instructions Recorded Thiamine [Vitamin B-1] 100 mg PO BID-W/MEALS #30 tab 06/18/22 Allergies Allergy/AdvReac Type Severity Reaction Status Date / Time No Known Allergies Allergy Verified 03/14/23 01:55 Review of Systems ROS Statement: Those systems with pertinent positive or pertinent negative responses have been documented in the HPI. ROS Other: All systems not noted in ROS Statement are negative. Past Medical History Past Medical History: Hypertension, Seizure Disorder Additional Past Medical History / Comment(s): ABSCESS History of Any Multi-Drug Resistant Organisms: None Reported Additional Past Surgical History / Comment(s): LEFT LEG SURGERY R/T TRAUMA, jaw Past Anesthesia/Blood Transfusion Reactions: No Reported Reaction Past Psychological History: No Psychological Hx Reported Smoking Status: Former smoker Past Alcohol Use History: None Reported Past Drug Use History: None Reported - Past Family History Mother Family Medical History: Diabetes Mellitus Additional Family Medical History / Comment(s): from sudhakar johnsons syndrome Father Family Medical History: Diabetes Mellitus Additional Family Medical History / Comment(s): from dm complic ations General Exam Limitations: no limitations General appearance: other (Sleeping but easily arousable) Head exam: Present: atraumatic Eye exam: Present: normal appearance, PERRL ENT exam: Present: normal exam, mucous membranes moist, other (No oral trauma) Neck exam: Present: normal inspection Respiratory exam: Present: normal lung sounds bilaterally Cardiovascular Exam: Present: regular rate, normal rhythm GI/Abdominal exam: Present: soft Neurological exam: Present: alert (Sleepy but easily arousable and answers questions appropriately), oriented X3 Skin exam: Present: warm Course Vital Signs 03/14/23 03/14/23 01:50 03:12 Temperature 97.2 F L Pulse Rate 107 H 84 Respiratory 18 16 Rate Blood Pressure 152/105 125/94 O2 Sat by Pulse 98 97 Oximetry Medical Decision Making - Medical Decision Making Was pt. sent in by a medical professional or institution (DEVIN Woo, OPERATIONS ACCOUNTANT, urgent care, hospital, or senior living...) When possible be specific @ -[No] Did you speak to anyone other than the patient for history (EMS, parent, family, police, friend...)? What history was obtained from this source @ -EMS, reportedly for seizure. Did you review nursing and triage notes (agree or disagree)? Why? @ -[I reviewed and agree with nursing and triage notes] Were old charts reviewed (outside hosp., previous admission, EMS record, old EKG, old radiological studies, urgent care reports/EKG's, senior living records)? Report findings @ -Old charts reviewed showing history of chronic alcoholism transaminitis secondary to chronic alcoholism Differential Diagnosis (chest pain, altered mental status, abdominal pain women, abdominal pain men, vaginal bleeding, weakness, fever, dyspnea, syncope, headache, dizziness, GI bleed, back pain, seizure, CVA, palpatations, mental health, musculoskeletal)? @ -[not applicable] EKG interpreted by me (3pts min.). @ -None X-rays interpreted by me (1pt min.). @ -[None done] CT interpreted by me (1pt min.). @ -[None done] U/S interpreted by me (1pt. min.). @ -[None done] What testing was considered but not performed or refused? (CT, X-rays, U/S, labs)? Why? @ -[None] What meds were considered but not given or refused? Why? @ -[None] Did you discuss the management of the patient with other professionals (pro fessionals i.e. DEVIN Woo, OPERATIONS ACCOUNTANT, lab, RT, psych nurse, hospice social worker, office nurse practitioner, teacher, security flex utility officer, bottle caser)? Give summary @ -[facility] for admission secondary to acute alcohol intoxication requiring further treatment Was smoking cessation discussed for >3mins.? @ -[No] Was critical care preformed (if so, how long)? @ -[No] Were there social determinants of health that impacted care today? How? (Homelessness, low income, unemployed, alcoholism, drug addiction, transportation, low edu. Level, literacy, decrease access to med. care, correction, rehab)? @ -[No] Was there de-escalation of care discussed even if they declined (Discuss DNR or withdrawal of care, Hospice)? DNR status @ -[No] What co-morbidities impacted this encounter? (DM, HTN, Smoking, COPD, CAD, Cancer, CVA, ARF, Chemo, Hep., AIDS, mental health diagnosis, sleep apnea, morbid obesity)? @ -[None] Was patient admitted / discharged? Hospital course, mention meds given and route, prescriptions, significant lab abnormalities, going to OR and other pertinent info. @ -Admitted labs significant for an alcohol level of 376, otherwise the labs unremarkable. She will protocol. Undiagnosed new problem with uncertain prognosis? @ -[No] Drug Therapy requiring intensive monitoring for toxicity (Heparin, Nitro, Insulin, Cardizem)? @ -[No] Were any procedures done? @ -[No] Diagnosis/symptom? @ -Alcohol intoxication Acute, or Chronic, or Acute on Chronic? @ -Acute on chronic Uncomplicated (without systemic symptoms) or Complicated (systemic symptoms)? @ -Complicated Side effects of treatment? @ -[No] Exacerbation, Progression, or Severe Exacerbation? @ -[No] Poses a threat to life or bodily function? How? (Chest pain, [place], [place], pneumonia, PE, COPD, DKA, ARF, appy, cholecystitis, CVA, Diverticulitis, Homicidal, Suicidal, threat to staff... and all critical care pts) @ -Yes, acute alcohol intoxication possible alcohol withdrawal seizure - Lab Data Result diagrams: 03/14/23 05:14 03/14/23 05:14 Lab Results 03/14/23 03/14/23 Range/Units 05:14 05:14 WBC 2.2 L (3.8-10.6) k/uL RBC 4.94 (4.30-5.90) m/uL Hgb 14.0 (13.0-17.5) gm/dL Hct 43.2 (39.0-53.0) % MCV 87.4 (80.0-100.0) fL MCH 28.2 (25.0-35.0) pg MCHC 32.3 (31.0-37.0) g/dL RDW 18.1 H (11.5-15.5) % Plt Count 110 L (150-450) k/uL MPV 8.9 Neutrophils % (Manual) 33 % Lymphocytes % (Manual) 52 % Monocytes % (Manual) 14 % Eosinophils % (Manual) 1 % Neutrophils # (Manual) 0.73 L (1.3-7.7) k/uL Lymphocytes # (Manual) 1.14 (1.0-4.8) k/uL Monocytes # (Manual) 0.31 (0-1.0) k/uL Eosinophils # (Manual) 0.02 (0-0.7) k/uL Nucleated RBCs 0 (0-0) /100 WBC Anisocytosis Slight Target Cells Present Sodium 137 (137-145) mmol/L Potassium 4.2 (3.5-5.1) mmol/L Chloride 99 (98-107) mmol/L Carbon Dioxide 21 L (22-30) mmol/L Anion Gap 17 mmol/L BUN 9 (9-20) mg/dL Creatinine 0.61 L (0.66-1.25) mg/dL Est GFR (CKD-EPI)AfAm >90 (>60 ml/min/1.73 sqM) Est GFR (CKD-EPI)NonAf >90 (>60 ml/min/1.73 sqM) Glucose 85 (74-99) mg/dL Calcium 8.8 (8.4-10.2) mg/dL Total Bilirubin 1.1 (0.2-1.3) mg/dL AST 255 H (17-59) U/L ALT 87 H (4-49) U/L Alkaline Phosphatase 145 H (38-126) U/L Total Protein 9.3 H (6.3-8.2) g/dL Albumin 4.3 (3.5-5.0) g/dL Serum Alcohol 376 H* mg/dL Disposition Clinical Impression: Alcohol intoxication Disposition: ADMITTED IP TO THIS HOSP Condition: Good Referrals: None,Stated [Primary Care Provider] - 1-2 days Time of Disposition: 07:09
[2023-03-14] MEDS ORDERED: ONDANSETRON 4 MG/2 ML VIAL IVP PRN (06:56)
[2023-03-14] MEDS ORDERED: NALOXONE 0.4 MG/ML 1 ML VIAL IV PRN (06:56)
[2023-03-14] MEDS ORDERED: LORazepam 1 MG TAB PO PRN ×3 (06:59)
[2023-03-14] MEDS ORDERED: LORazepam 0.5 MG TAB PO PRN (06:59)
[2023-03-14 07:02] LABS: Eosinophils # (M) 0.02 k/uL (0-0.7); Lymphocytes # (M) 1.14 k/uL (1.0-4.8); Monocytes # (M) 0.31 k/uL (0-1.0); Neutrophils # (M) 0.73 k/uL (1.3-7.7); Neutrophils % (M) 33 %; Nucleated Red Blood Cells 0 /100 WBC (0-0); Total Cells Counted 100
[2023-03-14 07:03] LABS: Target Cells Present
[2023-03-14] MEDS: SODIUM CHLORIDE 0.9% 1,000 ML IV SCH ×2 (08:48→22:51)
[2023-03-14] MEDS: FOLIC ACID 1 MG TAB PO SCH (08:49)
--- NOTE | 2023-03-14 12:08 | P.HPIM ---
History of Present Illness 42-year-old male admitted for intoxication patient admits to drinking 5 cans of beer a day although it appears like patient drinks 3 more than this. Patient had were all call withdraws in the past and patient is willing to quit drinking his last drink was last night patient admission serum alcohol level is around 350. REVIEW OF SYSTEMS: CONSTITUTIONAL: No fever, no malaise, no fatigue. HEENT: No recent visual problems or hearing problems. Denied any sore throat. CARDIOVASCULAR: No chest pain, orthopnea, PND, no palpitations, no syncope. PULMONARY: No shortness of breath, no cough, no hemoptysis. GASTROINTESTINAL: No diarrhea, no nausea, no vomiting, no abdominal pain. NEUROLOGICAL: No headaches, no weakness, no numbness. HEMATOLOGICAL: Denies any bleeding or petechiae. GENITOURINARY: Denies any burning micturition, frequency, or urgency. MUSCULOSKELETAL/RHEUMATOLOGICAL: Denies any joint pain, swelling, or any muscle pain. ENDOCRINE: Denies any polyuria or polydipsia. The rest of the 14-point review of systems is negative. PHYSICAL EXAMINATION: GENERAL: The patient is drowsy and oriented x3, not in any acute distress. Well developed, well nourished. HEENT: Pupils are round and equally reacting to light. EOMI. No scleral icterus. No conjunctival pallor. Normocephalic, atraumatic. No pharyngeal erythema. No thyromegaly. CARDIOVASCULAR: S1 and S2 present. No murmurs, rubs, or gallops. PULMONARY: Chest is clear to auscultation, no wheezing or crackles. ABDOMEN: Soft, nontender, nondistended, normoactive bowel sounds. No palpable organomegaly. MUSCULOSKELETAL: No joint swelling or deformity. EXTREMITIES: No cyanosis, clubbing, or pedal edema. NEUROLOGICAL: Gross neurological examination did not reveal any focal deficits. SKIN: No rashes. Assessment and plan -All call intoxication: Supportive care IV fluids time and multiple vitamin supplementation-alcohol withdrawal: patient will be started on Atrovent CW protocol patient is willing to quit alcohol social your consultation. Patient will be monitored for withdrawal symptoms and treated accordingly -History of alcohol use of seizures in the past DVT prophylaxis: Early ambulation GI prophylaxis Pepcid Past Medical History Past Medical History: Hypertension, Seizure Disorder Additional Past Medical History / Comment(s): ABSCESS History of Any Multi-Drug Resistant Organisms: None Reported Additional Past Surgical History / Comment(s): LEFT LEG SURGERY R/T TRAUMA, jaw Past Anesthesia/Blood Transfusion Reactions: No Reported Reaction Past Psychological History: No Psychological Hx Reported Smoking Status: Former smoker Past Alcohol Use History: None Reported Past Drug Use History: None Reported - Past Family History Mother Family Medical History: Diabetes Mellitus Additional Family Medical History / Comment(s): from sudhakar johnsons syndrome Father Family Medical History: Diabetes Mellitus Additional Family Medical History / Comment(s): from dm complications Medications and Allergies Home Medications Medication Instructions Recorded Confirmed Type Thiamine [Vitamin B-1] 100 mg PO BID-W/MEALS #30 tab 06/18/22 07/03/22 Rx Allergies Allergy/AdvReac Type Severity Reaction Status Date / Time No Known Allergies Allergy Verified 03/14/23 01:55 Physical Exam Vitals: Vital Signs Temp Pulse Resp BP Pulse Ox 03/14/23 03:12 84 16 125/94 97 03/14/23 01:50 97.2 F L 107 H 18 152/105 98 Intake and Output 03/13/23 03/14/23 03/14/23 22:59 06:59 14:59 Other: Weight 77.111 kg Results CBC & Chem 7: 03/14/23 05:14 03/14/23 05:14 Labs: Abnormal Lab Results - Last 24 Hours (Table) 03/14/23 03/14/23 Range/Units 05:14 05:14 WBC 2.2 L (3.8-10.6) k/uL RDW 18.1 H (11.5-15.5) % Plt Count 110 L (150-450) k/uL Neutrophils # (Manual) 0.73 L (1.3-7.7) k/uL Carbon Dioxide 21 L (22-30) mmol/L Creatinine 0.61 L (0.66-1.25) mg/dL AST 255 H (17-59) U/L ALT 87 H (4-49) U/L Alkaline Phosphatase 145 H (38-126) U/L Total Protein 9.3 H (6.3-8.2) g/dL Serum Alcohol 376 H* mg/dL
[2023-03-14] MEDS ORDERED: MELATONIN 5 MG TABLET PO STA (23:21)
[2023-03-15] MEDS ORDERED: THIAMINE 100 MG TAB PO SCH (09:00)
[2023-03-15 10:26] VITALS: BMI 25.1
[2023-03-15] MEDS: SODIUM CHLORIDE 0.9% 1,000 ML IV SCH (10:55)
[2023-03-15] MEDS: FOLIC ACID 1 MG TAB PO SCH (10:56)
[2023-03-15 10:57] LABS: ALT 85 U/L (4-49); AST 240 U/L (17-59); African American GFR (CKD) >90 (>60 ml/min/1.73 sqM); Albumin 3.7 g/dL (3.5-5.0); Albumin/Globulin Ratio 0.9; Alkaline Phosphatase 209 U/L (38-126); Anion Gap 8 mmol/L; Blood Urea Nitrogen 4 mg/dL (9-20); Calcium 8.4 mg/dL (8.4-10.2); Carbon Dioxide 26 mmol/L (22-30); Chloride 101 mmol/L (98-107); Globulin 4.2 g/dL; Glucose 112 mg/dL (74-99); Magnesium 1.5 mg/dL (1.6-2.3); Non-African American GFR(CKD) >90 (>60 ml/min/1.73 sqM); Sodium 135 mmol/L (137-145); Total Bilirubin 2.4 mg/dL (0.2-1.3); Total Protein 7.9 g/dL (6.3-8.2)
[2023-03-15 12:01] VITALS: BP 118/76; PULSE 96; RESP 20; TEMP 98.5
[2023-03-15] MEDS: MAGNESIUM SULFATE-D5W PMX 1 GM in DEXTROSE/WATER 1 100ML.BAG IVPB SCH ×3 (12:42→15:37)
--- NOTE | 2023-03-15 16:03 | P.DS ---
Providers Date of admission: 03/14/23 06:59 Attending physician: Isacc Waters MD Primary care physician: Stated None Hospital Course: Final Diagnosis -Acute alcohol intoxication and alcohol withdrawal -History of alcohol use -History of alcohol withdrawal seizures in the past -Former smoker -Hypomagnesemia -Alcohol liver cirrhosis GI prophylaxis with protonix Full Code Discharge Disposition Patient is stable for discharge home on oral librium taper. Counseled extensively on total alcohol cessation. Patient is agreeable and verabalizes a desire to quit alcohol. Has gone to rehab in the past and considering rehab at this time. Patient to repeat labs in 2 to 3 days outpatient monitoring liver enzymes. F/U with a PCP on discharge and patient was most recently evaluated in Dr. Saunders office and has an appointment scheduled for March 18, at 11am. Patient is started on oral folic acid, thiamine and protonix on discharge along with the oral librium taper. Hospital Course 42-year-old male admitted for intoxication patient admits to drinking 5 cans of beer a day although it appears like patient drinks more than this, he has elevated liver enzymes on admission as well as a serum alcohol level of 350 and reports his last drink was the night prior to admission. Patient has gone through alcohol withdrawal in the past and also alcohol withdrawal seziures. He was admitted for alcohol withdrawal and monitoring. Patient was given IV ativan with CIWA protocol and given IV magnesium. Monitored overnight on IV fluids. Currently requiring IV ativan every 6-8 hours and currently denying and signs of acute alcohol withdrawal just wants to sleep in the room. Patient reports he is willing to quit drinking alcohol. He is discharged on oral librium taper and will see Dr Cho in the office. Lungs are clear, S1 S2 auscultated abdomen is soft and nontender. Focal neurological exam is negative, alert x 3. Denying headache, no nausea vomiting or diarrhea. No hallucinations. No tremors noted with arms extended. Please see medication reconciliation for a list of current medication. Thank you for allowing us to participate in the care of this patient. The impression and plan of care has been dictated by Daisha Zapata, Nurse Practitioner as directed. Dr. Joseph MD I have performed a history and physical examination and medical decision making of this patient, discussed the same with the dictator, and agree with the dictators assessment and plan as written, documented as a scribe. Based on total visit time, I have performed more than 50% of this visit. Patient Condition at Discharge: Stable Plan - Discharge Summary Discharge Rx Participant: Yes New Discharge Prescriptions: New Folic Acid 1 mg PO DAILY #30 tab chlordiazePOXIDE HCl [Librium] 25 mg PO DIRECTED 3 Days #9 capsule Pantoprazole [Protonix] 40 mg PO DAILY #30 tab Thiamine [Vitamin B-1] 100 mg PO DAILY #30 tab Discharge Medication List Folic Acid 1 mg PO DAILY #30 tab 03/15/23 [Rx] Pantoprazole [Protonix] 40 mg PO DAILY #30 tab 03/15/23 [Rx] Thiamine [Vitamin B-1] 100 mg PO DAILY #30 tab 03/15/23 [Rx] chlordiazePOXIDE HCl [Librium] 25 mg PO DIRECTED 3 Days #9 capsule 03/15/23 [Rx] Follow up Appointment(s)/Referral(s): None,Stated [Primary Care Provider] - 03/18/23 11:00 am (Appointment with Dr Cho. please call office if unable to keep appointment [phone].) Ambulatory/Diagnostic Orders: Comprehensive Metabolic Panel [LAB.AMB] Time Frame: 5 Days, Location: None Selected Patient Instructions/Handouts: Chlordiazepoxide (By mouth), Thiamine (By mouth), Folic Acid (By mouth), Pantoprazole (By mouth), Alcohol Intoxication (DC), Alcohol Withdrawal (DC) Activity/Diet/Wound Care/Special Instructions: Establish care for with a PCP on discharge Repeat labs in 2 to 3 days Recommend to stop drinking alcohol completely Discharge/Stand Alone Forms: AA Meetings [facility], Who Do I Call?, Community Resources, Help In The Home, Outpatient Counseling, Inp Substance Abuse Facilities
== END 2023-03-15 17:17 | disposition home or self-care (01) | DRG 775 ==
LOC: EC 01:48 → 5NMEDONC 06:59
PROVIDERS: ADMIT Internal Medicine; ATTEND Internal Medicine
PROC: HZ2ZZZZ Detoxification Services for Substance Abuse Treatment (ICD-10-PCS; principal; 2023-03-14)
DX: F10.229 Alcohol dependence with intoxication, unspecified (principal); E83.42 Hypomagnesemia; I10 Essential (primary) hypertension; Y90.8 Blood alcohol level of 240 mg/100 ml or more; F10.239 Alcohol dependence with withdrawal, unspecified; K70.30 Alcoholic cirrhosis of liver without ascites; G40.909 Epilepsy, unspecified, not intractable, without status epilepticus; Z87.891 Personal history of nicotine dependence; Z87.828 Personal history of other (healed) physical injury and trauma; Z71.41 Alcohol abuse counseling and surveillance of alcoholic
CPT/HCPCS: 36415; 80053; 80320; 83735; 85025; 93005; 96360; 96361; 96372; 99285

== ENCOUNTER 2023-03-20 02:11 | Observation (INO) | payer OTHER ==
[2023-03-20] MEDS ORDERED: THIAMINE 100 MG/ML 2 ML VIAL IM STA (04:52)
[2023-03-20] MEDS ORDERED: LORazepam 2 MG/ML INJ IV PRN ×2 (04:52)
--- NOTE | 2023-03-20 04:52 | ED ---
Alcohol HPI - General Chief Complaint: Alcohol Stated Complaint: ETOH Time Seen by Provider: 03/20/23 02:37 Source: EMS Mode of arrival: EMS Limitations: no limitations - History of Present Illness Initial Comments: Patient is a 42-year-old male with history of alcohol abuse presenting for evaluation. Patient states that he is normally a daily drinker, he is unable to tell me how much he normally drinks a day. States that for the last 3-4 days he had not had a drink and was worried he was going to have seizure. At home he had what he claims to be "2 tall cans" of beer. Patient is resting and has no physical complaints at this time. - Related Data Home Medications Medication Instructions Recorded Confirmed chlordiazePOXIDE HCl [Librium] See Taper PO DIRECTED 03/20/23 03/20/23 Previous Rx's Medication Instructions Recorded Folic Acid 1 mg PO DAILY #30 tab 03/15/23 Pantoprazole [Protonix] 40 mg PO DAILY #30 tab 03/15/23 Thiamine [Vitamin B-1] 100 mg PO DAILY #30 tab 03/15/23 Allergies Allergy/AdvReac Type Severity Reaction Status Date / Time No Known Allergies Allergy Verified 03/20/23 06:42 Review of Systems ROS Statement: Those systems with pertinent positive or pertinent negative responses have been documented in the HPI. ROS Other: All systems not noted in ROS Statement are negative. Past Medical History Past Medical History: Hypertension, Seizure Disorder Additional Past Medical History / Comment(s): ABSCESS History of Any Multi-Drug Resistant Organisms: None Reported Additional Past Surgical History / Comment(s): LEFT LEG SURGERY R/T TRAUMA, jaw Past Anesthesia/Blood Transfusion Reactions: No Reported Reaction Past Psychological History: No Psychological Hx Reported Smoking Status: Former smoker Past Alcohol Use History: None Reported, Heavy Past Drug Use History: None Reported - Past Family History Mother Family Medical History: Diabetes Mellitus Additional Family Medical History / Comment(s): from sudhakar johnsons syndrome Father Family Medical History: Diabetes Mellitus Additional Family Medical History / Comment(s): from dm complications General Exam Limitations: no limitations General appearance: alert, in no apparent distress Head exam: Present: atraumatic, normocephalic, normal inspection Eye exam: Present: normal appearance, EOMI. Absent: scleral icterus, periorbital swelling Neck exam: Present: normal inspection, full ROM Respiratory exam: Present: normal lung sounds bilaterally. Absent: respiratory distress, wheezes, rales, rhonchi, stridor Cardiovascular Exam: Present: regular rate, normal rhythm, normal heart sounds. Absent: systolic murmur, diastolic murmur, rubs, gallop, clicks Neurological exam: Present: alert, altered Skin exam: Present: warm, dry, intact, normal color. Absent: rash Course Vital Signs 03/20/23 03/20/23 02:16 05:48 Temperature 98.0 F Pulse Rate 76 74 Respiratory 20 14 Rate Blood Pressure 168/103 155/79 O2 Sat by Pulse 99 98 Oximetry Medical Decision Making - Medical Decision Making Was pt. sent in by a medical professional or institution (, DEVIN, DELINQUENCY PREVENTION OFFICER, urgent care, hospital, or jail...) When possible be specific @ -No Did you speak to anyone other than the patient for history (EMS, parent, family, police, friend...)? What history was obtained from this source @ -No Did you review nursing and triage notes (agree or disagree)? Why? @ -I reviewed and agree with nursing and triage notes Were old charts reviewed (outside hosp., previous admission, EMS record, old EKG, old radiological studies, urgent care reports/EKG's, jail records)? Report findings @ -No old charts were reviewed Differential Diagnosis (chest pain, altered mental status, abdominal pain women, abdominal pain men, vaginal bleeding, weakness, fever, dyspnea, syncope, headache, dizziness, GI bleed, back pain, seizure, CVA, palpatations, mental health, musculoskeletal)? @ -not applicable EKG interpreted by me (3pts min.). @ -As above X-rays interpreted by me (1pt min.). @ -None done CT interpreted by me (1pt min.). @ -None done U/S interpreted by me (1pt. min.). @ -None done What testing was considered but not performed or refused? (CT, X-rays, U/S, labs)? Why? @ -None What meds were considered but not given or refused? Why? @ -None Did you discuss the management of the patient with other professionals (professionals i.e. , DEVIN, DELINQUENCY PREVENTION OFFICER, lab, RT, psych nurse, social welfare clerk, electronic components assembler, teacher, chief nursing officer, director case management)? Give summary @ -I spoke with Dr. Cho who accepts admission Was smoking cessation discussed for >3mins.? @ -No Was critical care preformed (if so, how long)? @ -No Were there social determinants of health that impacted care today? How? (Homelessness, low income, unemployed, alcoholism, drug addiction, transportation, low edu. Level, literacy, decrease access to med. care, group home, rehab)? @ -No Was there de-escalation of care discussed even if they declined (Discuss DNR or withdrawal of care, Hospice)? DNR status @ -No What co-morbidities impacted this encounter? (DM, HTN, Smoking, COPD, CAD, Cancer, CVA, ARF, Chemo, Hep., AIDS, mental health diagnosis, sleep apnea, morbid obesity)? @ -None Was patient admitted / discharged? Hospital course, mention meds given and route, prescriptions, significant lab abnormalities, going to OR and other pertinent info. @ -42-year-old male with history of alcohol abuse presents for evaluation. Patient states he was worried he was going to have a seizure at home because he had not had alcohol in about 3-4 days. Patient had several drinks at home. Serum alcohol level is 460. Patient will be admitted for alcohol intoxication. Basic labs are ordered for admission. I spoke with Dr. Cho who accepts admission. I discussed this case with my attending Dr. Acosta Undiagnosed new problem with uncertain prognosis? @ -No Drug Therapy requiring intensive monitoring for toxicity (Heparin, Nitro, Insulin, Cardizem)? @ -No Were any procedures done? @ -No Diagnosis/symptom? @ -Alcohol intoxication Acute, or Chronic, or Acute on Chronic? @ -Acute Uncomplicated (without systemic symptoms) or Complicated (systemic symptoms)? @ -Complicated Side effects of treatment? @ -No Exacerbation, Progression, or Severe Exacerbation? @ -No Poses a threat to life or bodily function? How? (Chest pain, [place], [place], pneumonia, PE, COPD, DKA, ARF, appy, cholecystitis, CVA, Diverticulitis, Homicidal, Suicidal, threat to staff... and all critical care pts) @ -Yes - Lab Data Result diagrams: 03/20/23 05:26 03/20/23 05:26 Lab Results 06/07/23 Range/Units 03:18 Serum Alcohol 460 H* mg/dL Disposition Clinical Impression: Alcoholic intoxication Disposition: ADMITTED IP TO THIS HOSP Condition: Fair Time of Disposition: 04:52
[2023-03-20] MEDS ORDERED: NALOXONE 0.4 MG/ML 1 ML VIAL IV PRN (04:55)
[2023-03-20 05:37] LABS: Anisocytosis Slight; HCT 36.2 % (39.0-53.0); HGB 11.8 gm/dL (13.0-17.5); MCH 28.9 pg (25.0-35.0); MCHC 32.5 g/dL (31.0-37.0); Mean Platelet Volume 8.8; Platelet Count 128 k/uL (150-450); RBC 4.07 m/uL (4.30-5.90); RDW 18.9 % (11.5-15.5); WBC 2.7 k/uL (3.8-10.6)
[2023-03-20] MEDS: SODIUM CHLORIDE 0.9% 1,000 ML IV SCH ×2 (05:40→22:14)
[2023-03-20 05:45] LABS: ALT 104 U/L (4-49); AST 277 U/L (17-59); African American GFR (CKD) >90 (>60 ml/min/1.73 sqM); Albumin 4.3 g/dL (3.5-5.0); Alkaline Phosphatase 274 U/L (38-126); Anion Gap 15 mmol/L; Blood Urea Nitrogen 11 mg/dL (9-20); Calcium 8.3 mg/dL (8.4-10.2); Carbon Dioxide 24 mmol/L (22-30); Chloride 102 mmol/L (98-107); Glucose 86 mg/dL (74-99); Non-African American GFR(CKD) >90 (>60 ml/min/1.73 sqM); Sodium 141 mmol/L (137-145); Total Protein 9.1 g/dL (6.3-8.2)
[2023-03-20 05:48] LABS: Potassium 4.9 mmol/L (3.5-5.1)
[2023-03-20 08:01] LABS: Eosinophils # (M) 0.03 k/uL (0-0.7); Lymphocytes # (M) 1.81 k/uL (1.0-4.8); Monocytes # (M) 0.27 k/uL (0-1.0); Neutrophils # (M) 0.59 k/uL (1.3-7.7); Neutrophils % (M) 22 %; Nucleated Red Blood Cells 0 /100 WBC (0-0); Target Cells Present; Total Cells Counted 100
[2023-03-20] MEDS: LORazepam 2 MG/ML INJ IV PRN (22:43)
[2023-03-21] MEDS: LORazepam 2 MG/ML INJ IV PRN (08:04)
[2023-03-21] MEDS: SODIUM CHLORIDE 0.9% 1,000 ML IV SCH ×2 (08:05→19:51)
[2023-03-21] MEDS: THIAMINE 100 MG TAB PO SCH (08:05)
[2023-03-21 11:28] LABS: Anisocytosis Slight; Basophils % (A) 0 %; Eosinophils # (A) 0.1 k/uL (0-0.7); Eosinophils % (A) 2 %; HCT 43.2 % (39.0-53.0); HGB 13.6 gm/dL (13.0-17.5); Lymphocytes # (A) 1.5 k/uL (1.0-4.8); Lymphocytes % (A) 22 %; MCH 28.5 pg (25.0-35.0); MCHC 31.6 g/dL (31.0-37.0); MCV 90.2 fL (80.0-100.0); Mean Platelet Volume 9.3; Monocytes # (A) 0.3 k/uL (0-1.0); Monocytes % (A) 5 %; Neutrophils # (A) 4.8 k/uL (1.3-7.7); Neutrophils % (A) 70 %; Platelet Count 112 k/uL (150-450); RBC 4.78 m/uL (4.30-5.90); RDW 18.4 % (11.5-15.5); WBC 6.8 k/uL (3.8-10.6)
[2023-03-21 12:08] LABS: ALT 74 U/L (4-49); AST 177 U/L (17-59); African American GFR (CKD) >90 (>60 ml/min/1.73 sqM); Albumin/Globulin Ratio 0.9; Alkaline Phosphatase 202 U/L (38-126); Anion Gap 10 mmol/L; Blood Urea Nitrogen 5 mg/dL (9-20); Calcium 8.6 mg/dL (8.4-10.2); Carbon Dioxide 26 mmol/L (22-30); Chloride 100 mmol/L (98-107); Globulin 4.6 g/dL; Glucose 121 mg/dL (74-99); Non-African American GFR(CKD) >90 (>60 ml/min/1.73 sqM); Potassium 3.6 mmol/L (3.5-5.1); Sodium 136 mmol/L (137-145); Total Protein 8.6 g/dL (6.3-8.2)
[2023-03-22] MEDS: LORazepam 2 MG/ML INJ IV PRN (02:18)
[2023-03-22] MEDS: SODIUM CHLORIDE 0.9% 1,000 ML IV SCH (02:21)
[2023-03-22 08:21] VITALS: BP 166/93; PULSE 81; RESP 16; TEMP 99
[2023-03-22] MEDS: THIAMINE 100 MG TAB PO SCH (08:26)
[2023-03-22] MEDS ORDERED: LOSARTAN 50 MG TAB PO SCH (21:00)
--- NOTE | 2023-03-23 00:31 | DS ---
DISCHARGE SUMMARY CHIEF COMPLAINT: Acute alcohol intoxication. HISTORY OF PRESENT ILLNESS AND PHYSICAL EXAMINATION: Details of this man's history and physical can be found in the initial workup. LABORATORY STUDIES: While he was in the hospital, he had laboratory studies, details of which can be found in the laboratory section of his chart. COURSE IN THE HOSPITAL: After admission, he was placed on bedrest and started on intravenous fluids and CIWA protocol. For the first day or 2, he was shaky and slightly nauseated. This improved, and he was doing well enough. It was felt that he could be discharged home on the night and to go home on his usual activity, diet, and medication along with thiamine 100 mg twice a day, and he will be followed up in the office in several days. FINAL DIAGNOSES: 1. Acute alcohol intoxication. 2. Delirium tremens. 3. Alcoholism. 4. Hypertension. OPERATIONS: None. CONSULTATIONS: None. CONDITION: He is improved. ILIR / EDUARDO: [id number] /
--- NOTE | 2023-03-23 00:37 | HP ---
HISTORY AND PHYSICAL CHIEF COMPLAINT: Acute alcohol intoxication. HISTORY OF PRESENT ILLNESS: This is another admission for this 42-year-old chronic alcoholic. He came to the emergency room with acute alcohol intoxication and impending DTs. REVIEW OF SYSTEMS: He has a history of hypertension. He has had no chest pain, shortness of breath, hematemesis, melena, jaundice, etc. Past medical history, family history, and personal and social histories are all otherwise unremarkable and noncontributory. PHYSICAL EXAMINATION: VITAL SIGNS: Blood pressure of 142/95 with a pulse of 88, respirations 35, and he is afebrile. GENERAL: Appeared to be slender and acutely intoxicated. HEAD, EARS, EYES, NOSE, AND MOUTH: Normal. NECK: Supple. CHEST: Clear. CARDIAC: Demonstrates sinus tachycardia. ABDOMEN: Soft and nontender. EXTREMITIES: Normal. NEUROLOGIC: He was slightly tremulous and intoxicated. DIAGNOSES: He is admitted to the hospital with diagnoses: 1. Acute alcohol intoxication. 2. Chronic alcoholism. 3. Hypertension. PLAN: 1. Bed rest. 2. IV fluids. 3. CIWA protocol. MMODL / LILLIEN: [id number] /
--- NOTE | 2023-03-25 08:50 | PN ---
PROGRESS NOTE DATE OF SERVICE: 03/21/2023 CHIEF COMPLAINT: Acute alcohol intoxication and DTs. HISTORY OF PRESENT ILLNESS: This gentleman is fairly stable. He has not had any significant issues with DTs. PHYSICAL EXAMINATION: VITAL SIGNS: Blood pressure is 129/95. CHEST: Clear. CARDIAC: Normal. ABDOMEN: Flat, soft, nontender. IMPRESSION: 1. Acute alcohol intoxication and DTs. 2. Hypertension. PLAN: Continue with [facility] protocol. MMODL / IJN: [id number] /
== END 2023-03-22 16:47 | disposition home or self-care (01) ==
LOC: EC 02:11 → 6NMEDSUR 04:55
PROVIDERS: ADMIT Family Medicine; ATTEND Family Medicine
DX: F10.229 Alcohol dependence with intoxication, unspecified (principal); F10.231 Alcohol dependence with withdrawal delirium; I10 Essential (primary) hypertension; G40.909 Epilepsy, unspecified, not intractable, without status epilepticus; Y90.8 Blood alcohol level of 240 mg/100 ml or more; Z79.899 Other long term (current) drug therapy; Z87.891 Personal history of nicotine dependence; Z83.3 Family history of diabetes mellitus; Z84.0 Family history of diseases of the skin and subcutaneous tissue
CPT/HCPCS: 96376 ×2; 96361 ×3; 96374; 99285; 36415; 80053 ×2; 85025 ×2; 80320; G0378 ×3; J2060 ×3; 96373

== ENCOUNTER 2023-03-24 02:56 | Observation (INO) | payer OTHER ==
[2023-03-24] MEDS ORDERED: SODIUM CHLORIDE 0.9% 1,000 ML IV ONE (03:06)
[2023-03-24] MEDS ORDERED: ONDANSETRON 4 MG/2 ML VIAL IVP STA (03:06)
[2023-03-24 03:39] LABS: ALT 80 U/L (4-49); AST 177 U/L (17-59); African American GFR (CKD) >90 (>60 ml/min/1.73 sqM); Alkaline Phosphatase 220 U/L (38-126); Anion Gap 16 mmol/L; Blood Urea Nitrogen 11 mg/dL (9-20); Calcium 8.6 mg/dL (8.4-10.2); Carbon Dioxide 18 mmol/L (22-30); Chloride 104 mmol/L (98-107); Glucose 93 mg/dL (74-99); Lipase 290 U/L (23-300); Magnesium 1.7 mg/dL (1.6-2.3); Non-African American GFR(CKD) >90 (>60 ml/min/1.73 sqM); Potassium 4.4 mmol/L (3.5-5.1); Sodium 138 mmol/L (137-145); Total Bilirubin 0.9 mg/dL (0.2-1.3); Total Protein 8.7 g/dL (6.3-8.2)
[2023-03-24 03:40] LABS: Anisocytosis Slight; HCT 34.7 % (39.0-53.0); HGB 10.8 gm/dL (13.0-17.5); MCH 28.5 pg (25.0-35.0); MCHC 31.1 g/dL (31.0-37.0); MCV 91.8 fL (80.0-100.0); Mean Platelet Volume 9.8; Platelet Count 112 k/uL (150-450); RBC 3.78 m/uL (4.30-5.90); RDW 18.8 % (11.5-15.5); WBC 7.1 k/uL (3.8-10.6)
[2023-03-24 03:58] LABS: Alcohol 419 mg/dL
[2023-03-24] MEDS ORDERED: THIAMINE 100 MG/ML 2 ML VIAL IM STA (04:27)
[2023-03-24] MEDS ORDERED: LORazepam 2 MG/ML INJ IV PRN ×2 (04:27)
[2023-03-24] MEDS ORDERED: NALOXONE 0.4 MG/ML 1 ML VIAL IV PRN (04:28)
--- NOTE | 2023-03-24 04:38 | ED ---
General Adult HPI - General Chief complaint: Alcohol Stated complaint: ETOH, Seizure Time Seen by Provider: 03/24/23 02:57 Source: EMS Mode of arrival: EMS Limitations: no limitations - History of Present Illness Initial comments: This is a 42 -year-old male with a past medical history including chronic alcoholism presents emergency department via EMS for a cause him once again. The patient stated "I just feel like I'm going to croke." The patient did state that he was drinking all day today and was again wanted to detox. The patient denied any other complaints at this time. The patient was resting in bed comfortably. - Related Data Previous Rx's Medication Instructions Recorded Folic Acid 1 mg PO DAILY #30 tab 03/15/23 Pantoprazole [Protonix] 40 mg PO DAILY #30 tab 03/15/23 Losartan [Cozaar] 50 mg PO DAILY #14 tab 03/22/23 Thiamine [Vitamin B-1] 100 mg PO BID #60 tab 03/22/23 Allergies Allergy/AdvReac Type Severity Reaction Status Date / Time No Known Allergies Allergy Verified 03/20/23 06:42 Review of Systems ROS Statement: Those systems with pertinent positive or pertinent negative responses have been documented in the HPI. ROS Other: All systems not noted in ROS Statement are negative. Past Medical History Past Medical History: Hypertension, Seizure Disorder Additional Past Medical History / Comment(s): ABSCESS History of Any Multi-Drug Resistant Organisms: None Reported Additional Past Surgical History / Comment(s): LEFT LEG SURGERY R/T TRAUMA, jaw Past Anesthesia/Blood Transfusion Reactions: No Reported Reaction Past Psychological History: No Psychological Hx Reported Smoking Status: Former smoker Past Alcohol Use History: None Reported, Heavy Past Drug Use History: None Reported - Past Family History Mother Family Medical History: Diabetes Mellitus Additional Family Medical History / Comment(s): from sudhakar johnsons syndrome Father Family Medical History: Diabetes Mellitus Additional Family Medical History / Comment(s): from dm complications General Exam Limitations: no limitations General appearance: alert, in no apparent distress, appears intoxicated Head exam: Present: atraumatic, normocephalic, normal inspection Eye exam: Present: normal appearance, PERRL Pupils: Present: normal accommodation ENT exam: Present: normal exam, normal oropharynx, mucous membranes moist Neck exam: Present: normal inspection, full ROM Respiratory exam: Present: normal lung sounds bilaterally Cardiovascular Exam: Present: regular rate, normal rhythm, normal heart sounds GI/Abdominal exam: Present: soft, normal bowel sounds Extremities exam: Present: normal inspection, full ROM Back exam: Present: normal inspection, full ROM Neurological exam: Present: alert, oriented X3, CN II-XII intact Psychiatric exam: Present: normal affect, normal mood Skin exam: Present: warm, dry Course Vital Signs 03/24/23 02:59 Temperature 98.8 F Pulse Rate 98 Respiratory 18 Rate Blood Pressure 131/106 O2 Sat by Pulse 97 Oximetry Medical Decision Making - Medical Decision Making Was pt. sent in by a medical professional or institution (, DEVIN, CLOTH COVERED HELMET PULLER, urgent care, hospital, or group home...) When possible be specific @ -No Did you speak to anyone other than the patient for history (EMS, parent, family, police, friend...)? What history was obtained from this source @ -No Did you review nursing and triage notes (agree or disagree)? Why? @ -I reviewed and agree with nursing and triage notes Were old charts reviewed (outside hosp., previous admission, EMS record, old EKG, old radiological studies, urgent care reports/EKG's, group home records)? Report findings @ -No old charts were reviewed Differential Diagnosis (chest pain, altered mental status, abdominal pain women, abdominal pain men, vaginal bleeding, weakness, fever, dyspnea, syncope, headache, dizziness, GI bleed, back pain, seizure, CVA, palpatations, mental health)? @ -Chronic alcoholism, EtOH withdrawal EKG interpreted by me (3pts min.). @ -None X-rays interpreted by me (1pt min.). @ -None done CT interpreted by me (1pt min.). @ -None done U/S interpreted by me (1pt. min.). @ -None done What testing was considered but not performed or refused? (CT, X-rays, U/S, labs)? Why? @ -None What meds were considered but not given or refused? Why? @ -None Did you discuss the management of the patient with other professionals (professionals i.e. DEVIN Woo, CLOTH COVERED HELMET PULLER, lab, RT, psych nurse, social work lecturer, chairman ceo, teacher, fisheries technical officer, case manager specialist)? Give summary @ -Yes, admitting physician was contacted regarding admission Was smoking cessation discussed for >3mins.? @ -Yes Was critical care preformed (if so, how long)? @ -No Were there social determinants of health that impacted care today? How? (Homelessness, low income, unemployed, alcoholism, drug addiction, transportation, low edu. Level, literacy, decrease access to med. care, alf, rehab)? @ -Chronic alcoholism Was there de-escalation of care discussed even if they declined (Discuss DNR or withdrawal of care, Hospice)? DNR status @ -No What co-morbidities impacted this encounter? (DM, HTN, Smoking, COPD, CAD, Cancer, CVA, ARF, Chemo, Hep., AIDS, mental health diagnosis, sleep apnea, morbid obesity)? @ -None Was patient admitted / discharged? Hospital course, mention meds given and route, prescriptions, significant lab abnormalities, going to OR and other pertinent info. @ -The patient was seen and evaluated the emergency department. Physical exam, the patient was resting in bed without any acute distress. Vital signs were stable. Laboratory workup was obtained after the patient stated that he was intoxicated and did not a ride and had sensations that he was not feeling well. Laboratory workup did show a call level of 419. Due to the patient's significant EtOH level, the patient will be admitted for further workup and ev aluation. The patient was told this plan and was agreeable. The patient was abated in stable condition. Undiagnosed new problem with uncertain prognosis? @ -No Drug Therapy requiring intensive monitoring for toxicity (Heparin, Nitro, Insulin, Cardizem)? @ -No Were any procedures done? @ -No Diagnosis/symptom? @ -Acute alcohol poisoning Acute, or Chronic, or Acute on Chronic? @ -Acute Uncomplicated (without systemic symptoms) or Complicated (systemic symptoms)? @ -Complicated Side effects of treatment? @ -No Exacerbation, Progression, or Severe Exacerbation? @ -No Poses a threat to life or bodily function? How? (Chest pain, [place], [place], pneumonia, PE, COPD, DKA, ARF, appy, cholecystitis, CVA, Diverticulitis, Homicidal, Suicidal, threat to staff... and all critical care pts) @ -No - Lab Data Result diagrams: 03/24/23 03:08 03/24/23 03:08 Lab Results 06/11/23 06/11/23 Range/Units 03:08 03:08 WBC 7.1 (3.8-10.6) k/uL RBC 3.78 L (4.30-5.90) m/uL Hgb 10.8 L (13.0-17.5) gm/dL Hct 34.7 L (39.0-53.0) % MCV 91.8 (80.0-100.0) fL MCH 28.5 (25.0-35.0) pg MCHC 31.1 (31.0-37.0) g/dL RDW 18.8 H (11.5-15.5) % Plt Count 112 L (150-450) k/uL MPV 9.8 Anisocytosis Slight Sodium 138 (137-145) mmol/L Potassium 4.4 (3.5-5.1) mmol/L Chloride 104 (98-107) mmol/L Carbon Dioxide 18 L (22-30) mmol/L Anion Gap 16 mmol/L BUN 11 (9-20) mg/dL Creatinine 0.60 L (0.66-1.25) mg/dL Est GFR (CKD-EPI)AfAm >90 (>60 ml/min/1.73 sqM) Est GFR (CKD-EPI)NonAf >90 (>60 ml/min/1.73 sqM) Glucose 93 (74-99) mg/dL Calcium 8.6 (8.4-10.2) mg/dL Magnesium 1.7 (1.6-2.3) mg/dL Total Bilirubin 0.9 (0.2-1.3) mg/dL AST 177 H (17-59) U/L ALT 80 H (4-49) U/L Alkaline Phosphatase 220 H (38-126) U/L Total Protein 8.7 H (6.3-8.2) g/dL Albumin 4.0 (3.5-5.0) g/dL Lipase 290 (23-300) U/L Serum Alcohol 419 H* mg/dL Disposition Clinical Impression: Alcohol intoxication Disposition: ADMITTED IP TO THIS [facility] Condition: Stable Is patient prescribed a controlled substance at d/c from ED?: No Referrals: Luis Cho MD [Primary Care Provider] - 1-2 days Time of Disposition: 04:30 Decision to Admit Reason: Admit from EC Decision Date: 03/24/23 Decision Time: 04:30
[2023-03-24 04:45] LABS: Band Neutrophils % 1 %; Eosinophils # (M) 0.14 k/uL (0-0.7); Monocytes # (M) 0.71 k/uL (0-1.0); Neutrophils % (M) 42 %; Nucleated Red Blood Cells 0 /100 WBC (0-0); Total Cells Counted 100
[2023-03-24 04:47] LABS: Anisocytosis (M) Present; Poikilocytosis (M) Present
[2023-03-24] MEDS: SODIUM CHLORIDE 0.9% 1,000 ML IV SCH ×3 (04:49→20:09)
[2023-03-24] MEDS: THIAMINE 100 MG TAB PO SCH ×2 (11:10→21:12)
[2023-03-25] MEDS: LORazepam 2 MG/ML INJ IV PRN ×2 (03:20→21:14)
--- NOTE | 2023-03-25 08:14 | HP ---
HISTORY AND PHYSICAL CHIEF COMPLAINT: Acute alcohol intoxication. HISTORY OF PRESENT ILLNESS: Another admission for this 42-year-old -[place] male. The patient was just discharged the other day. He came back in intoxicated. REVIEW OF SYSTEMS: Not obtainable. PAST MEDICAL HISTORY, FAMILY HISTORY, PERSONAL AND SOCIAL HISTORIES: Unchanged. PHYSICAL EXAMINATION: VIAL SIGNS: Blood pressure is 132/88 with a pulse of 96 and regular, respirations of 32, and he is afebrile. GENERAL: Appeared to be slender and intoxicated. HEENT: Head, ears, eyes, nose and mouth are normal. CHEST: Clear. CARDIAC: Normal. ABDOMEN: Soft and nontender. EXTREMITIES: Normal. IMPRESSION: 1. Acute alcohol intoxication. 2. Chronic alcoholism. PLAN: 1. Bedrest. 2. IV fluids. 3. CIWA protocol. ILIR / EDUARDO: [id number] /
[2023-03-25] MEDS: THIAMINE 100 MG TAB PO SCH ×2 (08:37→20:48)
[2023-03-25] MEDS: LOSARTAN 50 MG TAB PO SCH (08:37)
[2023-03-25] MEDS: PANTOPRAZOLE 40 MG TABLET PO SCH (08:37)
[2023-03-25] MEDS: FOLIC ACID 1 MG TAB PO SCH (08:37)
[2023-03-25] MEDS ORDERED: THIAMINE 100 MG TAB PO SCH (09:00)
[2023-03-25] MEDS: SODIUM CHLORIDE 0.9% 1,000 ML IV SCH ×2 (11:27→21:15)
[2023-03-25 12:03] VITALS: BMI 24.3
[2023-03-25] MEDS: cloNIDine HCL 0.1 MG TAB PO SCH ×2 (15:53→20:48)
[2023-03-26] MEDS: SODIUM CHLORIDE 0.9% 1,000 ML IV SCH ×2 (04:28→22:10)
[2023-03-26] MEDS: cloNIDine HCL 0.1 MG TAB PO SCH ×3 (09:50→22:08)
[2023-03-26] MEDS: THIAMINE 100 MG TAB PO SCH ×2 (09:50→22:09)
[2023-03-26] MEDS: FOLIC ACID 1 MG TAB PO SCH (09:50)
[2023-03-26] MEDS: PANTOPRAZOLE 40 MG TABLET PO SCH (09:51)
[2023-03-26] MEDS: LOSARTAN 50 MG TAB PO SCH (09:51)
--- NOTE | 2023-03-26 23:12 | PN ---
PROGRESS NOTE DATE OF SERVICE: 03/25/2023 CHIEF COMPLAINT: Acute alcohol intoxication and hypertension. HISTORY OF PRESENT ILLNESS: This gentleman is still intoxicated. He is somewhat tremulous. PHYSICAL EXAMINATION: VITAL SIGNS: Blood pressure is 151/93. Pulse is 94. Respirations are 20. He is afebrile. GENERAL: Appeared to be slender. He is still weak and nauseated. IMPRESSION: 1. Acute alcohol intoxication. 2. Hypertension. PLAN: Continue to monitor for DTs and hypertension. MMODL / IJN: [id number] /
--- NOTE | 2023-03-26 23:23 | PN ---
PROGRESS NOTE DATE OF SERVICE: 03/26/2023 CHIEF COMPLAINT: Acute alcoholic intoxication and DTs. HISTORY OF PRESENT ILLNESS: This gentleman is doing fairly well and he has been stable, but he is not going into DTs. PHYSICAL EXAMINATION: CHEST: Clear. CARDIAC: Normal. ABDOMEN: Soft, nontender. IMPRESSION: 1. Acute alcohol intoxication. 2. Chronic alcoholism. 3. Hypertension. PLAN: Continue to follow for another 24 hours for discharge. MMODL / IJN: [id number] /
[2023-03-27] MEDS: SODIUM CHLORIDE 0.9% 1,000 ML IV SCH ×4 (00:53→19:21)
[2023-03-27] MEDS: THIAMINE 100 MG TAB PO SCH ×2 (07:42→21:19)
[2023-03-27] MEDS: LOSARTAN 50 MG TAB PO SCH (07:42)
[2023-03-27] MEDS: FOLIC ACID 1 MG TAB PO SCH (07:42)
[2023-03-27] MEDS: cloNIDine HCL 0.1 MG TAB PO SCH ×3 (07:43→21:19)
[2023-03-27] MEDS: PANTOPRAZOLE 40 MG TABLET PO SCH (07:43)
[2023-03-27 20:15] VITALS: BP 150/89; PULSE 79; RESP 18; TEMP 98.2
[2023-03-27] MEDS ORDERED: ACAMPROSATE CALCIUM 333 MG TABLET.DR PO SCH (22:00)
--- NOTE | 2023-03-29 02:43 | DS ---
DISCHARGE SUMMARY CHIEF COMPLAINT: Acute alcohol intoxication and hypertension. HISTORY OF PRESENT ILLNESS AND PHYSICAL EXAMINATION: Details of this man's history and physical can be found in the initial workup. LABORATORY STUDIES: While he was in the hospital, he had laboratory studies, details of which can be found in the laboratory section of his chart. COURSE IN THE HOSPITAL: After admission, he was placed on bedrest and started on the CIWA protocol. He remained on his anticonvulsant. His blood pressure was elevated and this was treated. He was stable and doing well and felt that he could go home on the and he will go home on his usual activity and diet. He will be on Cozaar and Catapres for his blood pressure and he will be on Campral 666 mg 3 times a day. He will be seen in the office in several days. FINAL DIAGNOSES: 1. Acute alcohol intoxication. 2. Chronic alcoholism. 3. Hypertension. 4. Seizure disorder. OPERATIONS: None. CONSULTATION: None, he is improved. MMODL / LILLIEN: [id number] /
== END 2023-03-27 21:15 | disposition home or self-care (01) ==
LOC: EC 02:56 → 4SSUR 04:28 → INTOOBSV 04:28 → 4SSUR 05:27
PROVIDERS: ADMIT Family Medicine; ATTEND Family Medicine
DX: F10.220 Alcohol dependence with intoxication, uncomplicated (principal); G40.909 Epilepsy, unspecified, not intractable, without status epilepticus; I10 Essential (primary) hypertension; Z79.899 Other long term (current) drug therapy; Z83.3 Family history of diabetes mellitus; Y90.8 Blood alcohol level of 240 mg/100 ml or more
CPT/HCPCS: 96376; 96361 ×4; 96375; 96360; 96372; 96374; 99285; 36415; 80053; 83690; 83735; 85025; G0378 ×4; G0480; J2060; J3411; J2405; 80320

== ENCOUNTER 2023-04-04 12:33 | Observation (INO) | payer OTHER ==
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
[2023-04-04 13:36] LABS: Anisocytosis Slight; Basophils # (A) 0.1 k/uL (0-0.2); Basophils % (A) 2 %; Eosinophils # (A) 0.1 k/uL (0-0.7); Eosinophils % (A) 2 %; HCT 39.5 % (39.0-53.0); HGB 12.2 gm/dL (13.0-17.5); Hypochromasia Slight; Lymphocytes # (A) 2.7 k/uL (1.0-4.8); Lymphocytes % (A) 53 %; MCH 28.4 pg (25.0-35.0); MCHC 30.8 g/dL (31.0-37.0); MCV 92.2 fL (80.0-100.0); Mean Platelet Volume 8.5; Monocytes # (A) 0.4 k/uL (0-1.0); Monocytes % (A) 8 %; Neutrophils # (A) 1.7 k/uL (1.3-7.7); Neutrophils % (A) 32 %; RBC 4.28 m/uL (4.30-5.90); RDW 18.2 % (11.5-15.5); WBC 5.1 k/uL (3.8-10.6)
[2023-04-04 13:46] LABS: Platelet Count 291 k/uL (150-450)
[2023-04-04 14:02] LABS: African American GFR (CKD) >90 (>60 ml/min/1.73 sqM); Anion Gap 17 mmol/L; Blood Urea Nitrogen 10 mg/dL (9-20); Calcium 9.1 mg/dL (8.4-10.2); Carbon Dioxide 22 mmol/L (22-30); Chloride 101 mmol/L (98-107); Glucose 138 mg/dL (74-99); Magnesium 1.7 mg/dL (1.6-2.3); Non-African American GFR(CKD) >90 (>60 ml/min/1.73 sqM); Potassium 4.1 mmol/L (3.5-5.1); Sodium 140 mmol/L (137-145)
[2023-04-04 14:17] LABS: Alcohol 411 mg/dL
[2023-04-04] MEDS ORDERED: LORazepam 2 MG/ML INJ IV PRN ×3 (14:43)
[2023-04-04] MEDS ORDERED: THIAMINE 100 MG/ML 2 ML VIAL IM STA (14:43)
[2023-04-04] MEDS ORDERED: NALOXONE 0.4 MG/ML 1 ML VIAL IV PRN (14:44)
[2023-04-04] MEDS: SODIUM CHLORIDE 0.9% 1,000 ML IV SCH (16:05)
[2023-04-05] MEDS: SODIUM CHLORIDE 0.9% 1,000 ML IV SCH ×2 (04:56→21:41)
[2023-04-05] MEDS ORDERED: ONDANSETRON 4 MG/2 ML VIAL IVP PRN (08:47)
[2023-04-05] MEDS: THIAMINE 100 MG TAB PO SCH (09:42)
--- NOTE | 2023-04-05 20:46 | HP ---
HISTORY AND PHYSICAL CHIEF COMPLAINT: Acute alcohol intoxication. HISTORY OF PRESENT ILLNESS: This is another admission for this young man, who just was discharged a week or so ago. This is his third visit in the last month for acute alcohol intoxication. He also has a problem with hypertension. REVIEW OF SYSTEMS: Not obtained because he is intoxicated. Past medical history, family history, and personal and social histories are all otherwise unremarkable. MEDICATIONS: He was sent home on Campral. He is likely not taking it. ALLERGIES: He is not allergic to any medication. PHYSICAL EXAMINATION: VITAL SIGNS: Blood pressure 130/100 with a pulse of 104, respirations of 38, and he is afebrile. GENERAL: Appeared to be slender and intoxicated. SKIN: Normal. There is no jaundice. HEAD, EARS, EYES, NOSE, MOUTH, AND THROAT: Otherwise normal. CHEST: Clear. CARDIAC: Demonstrates sinus tachycardia. ABDOMEN: Flat, soft, and nontender. Bowel sounds present. EXTREMITIES: Normal. NEUROLOGIC: He is intact. DIAGNOSES: He is admitted to the hospital with diagnoses of: 1. Acute alcohol intoxication. 2. Chronic alcoholism. 3. Delirium tremens. 4. Hypertension. PLAN: 1. Bedrest. 2. IV fluids. 3. CIWA protocol. MMGURUL / LILLIEN: [id number] /
[2023-04-06] MEDS: SODIUM CHLORIDE 0.9% 1,000 ML IV SCH ×2 (05:15→20:36)
[2023-04-06] MEDS: THIAMINE 100 MG TAB PO SCH (10:38)
[2023-04-06] MEDS: cloNIDine HCL 0.1 MG TAB PO SCH (20:44)
[2023-04-06] MEDS: MELATONIN 3 MG TABLET PO SCH (20:44)
[2023-04-06] MEDS: hydrALAZINE HCL 50 MG TAB PO SCH (20:44)
[2023-04-07] MEDS: THIAMINE 100 MG TAB PO SCH (08:20)
[2023-04-07] MEDS: cloNIDine HCL 0.1 MG TAB PO SCH ×2 (08:20→16:48)
[2023-04-07] MEDS: hydrALAZINE HCL 50 MG TAB PO SCH ×3 (08:20→18:04)
[2023-04-07] MEDS: SODIUM CHLORIDE 0.9% 1,000 ML IV SCH (16:48)
[2023-04-08] MEDS: MELATONIN 3 MG TABLET PO SCH (02:02)
[2023-04-08] MEDS: cloNIDine HCL 0.1 MG TAB PO SCH ×2 (03:52→08:32)
[2023-04-08] MEDS: hydrALAZINE HCL 50 MG TAB PO SCH ×3 (03:52→15:42)
[2023-04-08] MEDS: SODIUM CHLORIDE 0.9% 1,000 ML IV SCH (06:37)
[2023-04-08] MEDS: THIAMINE 100 MG TAB PO SCH (08:11)
[2023-04-08 08:23] VITALS: RESP 16
[2023-04-08 15:52] VITALS: BP 103/69; PULSE 80; TEMP 98.3
--- NOTE | 2023-04-09 01:38 | PN ---
PROGRESS NOTE DATE OF SERVICE: 04/05/2023 CHIEF COMPLAINT: Acute alcohol intoxication. HISTORY OF PRESENT ILLNESS: This gentleman is lethargic and remains intoxicated. He is complaining of nausea and weakness, but he has not had any tremors yet. He has had no blackouts or diplopia. PHYSICAL EXAMINATION: CHEST: Clear. CARDIAC: Demonstrates tachycardia. ABDOMEN: Soft, nontender. IMPRESSION: 1. Acute alcohol intoxication. 2. Chronic alcoholism. 3. Hypertension. 4. Impending delirium tremens. MMODL / IJN: [id number] /
--- NOTE | 2023-04-09 02:09 | PN ---
PROGRESS NOTE DATE OF SERVICE: 04/06/2023 CHIEF COMPLAINT: Acute alcohol intoxication and DTs. HISTORY OF PRESENT ILLNESS: This gentleman still feels somewhat shaky. He has had no seizures. He has had no other issues. Blood pressure is still high and this is being addressed. PHYSICAL EXAMINATION: CHEST: Clear. CARDIAC: Normal. ABDOMEN: Soft, nontender. IMPRESSION: 1. Acute alcohol intoxication. 2. Chronic alcoholism. 3. Delirium tremens. 4. Hypertension. PLAN: Address hypertension and continue to monitor his DTs. MMODL / IJN: [id number] /
== END 2023-04-08 17:10 | disposition home or self-care (01) ==
LOC: EC 12:33 → 4SSUR 14:45 → 6NMEDSUR 04-05 21:53
PROVIDERS: ADMIT Family Medicine; ATTEND Family Medicine
DX: F10.221 Alcohol dependence with intoxication delirium (principal); F10.231 Alcohol dependence with withdrawal delirium; R53.83 Other fatigue; I10 Essential (primary) hypertension; R00.0 Tachycardia, unspecified
CPT/HCPCS: 96361 ×3; 96374; 99285; 36415; 93005; 80048; 83735; 85025; 80320; G0378 ×6; J3411; J2405

== ENCOUNTER 2023-04-16 23:41 | Emergency (ER) | payer OTHER ==
[2023-04-17] MEDS ORDERED: THIAMINE 100 MG/ML 2 ML VIAL IM STA (02:25)
[2023-04-17] MEDS ORDERED: LORazepam 2 MG/ML INJ IV PRN ×3 (02:25)
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
[2023-04-17 11:02] VITALS: BP 118/85; PULSE 91; RESP 18; TEMP 98.7
[2023-04-18] MEDS ORDERED: THIAMINE 100 MG TAB PO SCH (09:00)
== END 2023-04-17 11:14 | disposition home or self-care (01) ==
LOC: EC 23:41
DX: F10.129 Alcohol abuse with intoxication, unspecified (principal); I10 Essential (primary) hypertension; Z86.59 Personal history of other mental and behavioral disorders; Z87.891 Personal history of nicotine dependence; W19.XXXA Unspecified fall, initial encounter
CPT/HCPCS: 82075; 99284

== ENCOUNTER 2023-05-23 03:47 | Emergency (ER) | payer OTHER ==
[2023-05-23 03:58] VITALS: TEMP 97.2
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
[2023-05-23 12:55] VITALS: BP 124/90; PULSE 109; RESP 18
== END 2023-05-23 12:55 | disposition home or self-care (01) ==
LOC: EC 03:47
DX: F10.229 Alcohol dependence with intoxication, unspecified (principal); I10 Essential (primary) hypertension; Z86.59 Personal history of other mental and behavioral disorders; Z87.891 Personal history of nicotine dependence
CPT/HCPCS: 99284

== ENCOUNTER 2023-06-27 22:09 | Inpatient (IN) | payer OTHER ==
[2023-06-27] MEDS ORDERED: SODIUM CHLORIDE 0.9% 1,000 ML IV STA (22:50)
[2023-06-27] MEDS ORDERED: NALOXONE 0.4 MG/ML 1 ML VIAL IVP STA (22:51)
[2023-06-27 23:10] LABS: HCT 38.5 % (39.0-53.0); HGB 12.4 gm/dL (13.0-17.5); MCH 30.1 pg (25.0-35.0); MCHC 32.3 g/dL (31.0-37.0); MCV 93.2 fL (80.0-100.0); Mean Platelet Volume 8.9; Platelet Count 113 k/uL (150-450); RBC 4.13 m/uL (4.30-5.90); RDW 15.4 % (11.5-15.5); WBC 3.6 k/uL (3.8-10.6)
[2023-06-27 23:34] LABS: ALT 107 U/L (4-49); AST 269 U/L (17-59); African American GFR (CKD) >90 (>60 ml/min/1.73 sqM); Albumin 4.4 g/dL (3.5-5.0); Alkaline Phosphatase 137 U/L (38-126); Amylase 124 U/L (30-110); Anion Gap 19 mmol/L; Appearance,Urine Clear (Clear); Bilirubin,Urine Negative (Negative); Blood Urea Nitrogen 5 mg/dL (9-20); Blood,Urine Negative (Negative); Carbon Dioxide 21 mmol/L (22-30); Chloride 91 mmol/L (98-107); Color,Urine Colorless; Glucose 87 mg/dL (74-99); Glucose,Urine (UA) Negative (Negative); Ketones,Urine Negative (Negative); Leukocyte Esterase,Urine Negative (Negative); Lipase 184 U/L (23-300); Magnesium 1.7 mg/dL (1.6-2.3); Nitrite,Urine Negative (Negative); Non-African American GFR(CKD) >90 (>60 ml/min/1.73 sqM); Phosphorus 3.6 mg/dL (2.5-4.5); Potassium 4.4 mmol/L (3.5-5.1); Protein,Urine Trace (Negative); Sodium 131 mmol/L (137-145); Specific Gravity,Urine 1.003 (1.001-1.035); Total Bilirubin 1.2 mg/dL (0.2-1.3); Total Protein 9.3 g/dL (6.3-8.2); Urobilinogen,Urine <2.0 mg/dL (<2.0)
[2023-06-27 23:48] LABS: Amphetamine Screen,Urine Not Detected (NotDetected); Barbiturate Screen,Urine Not Detected (NotDetected); Benzodiazepines Screen,Urine Not Detected (NotDetected); Cocaine Screen,Urine Not Detected (NotDetected); Methadone Screen, Urine Not Detected (NotDetected); Opiate Screen,Urine Not Detected (NotDetected); Oxycodone Screen, Urine Not Detected (NotDetected); Phencyclidine Screen,Urine Not Detected (NotDetected); Tricyclic Antidepressant,Urine Not Detected (NotDetected); Urn Cannabinoid Scrn Not Detected (NotDetected)
[2023-06-27 23:52] LABS: INR 1.1 (<1.2); Prothrombin Time 11.2 sec (9.0-12.0)
[2023-06-28 00:29] LABS: Lymphocytes # (M) 1.69 k/uL (1.0-4.8); Monocytes # (M) 0.07 k/uL (0-1.0); Neutrophils # (M) 1.84 k/uL (1.3-7.7); Neutrophils % (M) 51 %; Nucleated Red Blood Cells 0 /100 WBC (0-0); Total Cells Counted 100
[2023-06-28] MEDS ORDERED: THIAMINE 100 MG/ML 2 ML VIAL IM STA (01:01)
[2023-06-28] MEDS ORDERED: NALOXONE 0.4 MG/ML 1 ML VIAL IV PRN (01:01)
[2023-06-28] MEDS ORDERED: ONDANSETRON 4 MG/2 ML VIAL IVP PRN (01:01)
[2023-06-28] MEDS ORDERED: LORazepam 2 MG/ML INJ IV PRN (01:02)
--- NOTE | 2023-06-28 01:04 | ED ---
Alcohol HPI - General Chief Complaint: Alcohol Stated Complaint: ETOH, SEIZURE Time Seen by Provider: 06/27/23 22:12 Source: EMS Mode of arrival: EMS - History of Present Illness Initial Comments: 42-year-old male well known to our ER presenting with chief complaint of alcohol intoxication. Supposedly EMS was called. Someone on scene while the patient was having a seizure, however when EMS arrived this person was not at the scene to discuss what they saw. Patient has been drinking tonight although he is unable to tell me how much. He has been seen in our ER multiple times for alcohol intoxication. History is limited due to intoxication. - Related Data Allergies Allergy/AdvReac Type Severity Reaction Status Date / Time No Known Allergies Allergy Verified 06/27/23 22:23 Review of Systems ROS Statement: Those systems with pertinent positive or pertinent negative responses have been documented in the HPI. ROS Other: All systems not noted in ROS Statement are negative. Past Medical History Past Medical History: Hypertension, Pneumonia, Seizure Disorder History of Any Multi-Drug Resistant Organisms: None Reported Past Surgical History: Joint Replacement, Orthopedic Surgery Past Psychological History: No Psychological Hx Reported Smoking Status: Never smoker Past Alcohol Use History: Abuse, Heavy Past Drug Use History: None Reported General Exam Limitations: altered mental status General appearance: in no apparent distress, appears intoxicated Head exam: Present: atraumatic, normocephalic, normal inspection Eye exam: Present: normal appearance Neck exam: Present: normal inspection Respiratory exam: Present: normal lung sounds bilaterally. Absent: respiratory distress, wheezes, rales, rhonchi, stridor Cardiovascular Exam: Present: regular rate, normal rhythm, normal heart sounds. Absent: systolic murmur, diastolic murmur, rubs, gallop, clicks Neurological exam: Present: altered Skin exam: Present: warm, dry, intact, normal color. Absent: rash Course Vital Signs 06/27/23 22:11 Temperature 98.7 F Pulse Rate 96 Respiratory 18 Rate Blood Pressure 131/98 O2 Sat by Pulse 98 Oximetry Medical Decision Making - Medical Decision Making Was pt. sent in by a medical professional or institution (, PA, RECEP, urgent care, hospital, or long-term...) When possible be specific @ -No Did you speak to anyone other than the patient for history (EMS, parent, family, police, friend...)? What history was obtained from this source @ -EMS Did you review nursing and triage notes (agree or disagree)? Why? @ -I reviewed and agree with nursing and triage notes Were old charts reviewed (outside hosp., previous admission, EMS record, old EKG, old radiological studies, urgent care reports/EKG's, long-term records)? Report findings @ -No old charts were reviewed Differential Diagnosis (chest pain, altered mental status, abdominal pain women, abdominal pain men, vaginal bleeding, weakness, fever, dyspnea, syncope, headache, dizziness, GI bleed, back pain, seizure, CVA, palpatations, mental health, musculoskeletal)? @ -not applicable EKG interpreted by me (3pts min.). @ -As above X-rays interpreted by me (1pt min.). @ -None done CT interpreted by me (1pt min.). @ -None done U/S interpreted by me (1pt. min.). @ -None done What testing was considered but not performed or refused? (CT, X-rays, U/S, labs)? Why? @ -None What meds were considered but not given or refused? Why? @ -None Did you discuss the management of the patient with other professionals (professionals i.e. DrMynor, PA, RECEP, lab, RT, psych nurse, addiction social worker, engineering design manager, teacher, county records management officer, comp field case manager)? Give summary @ -My attending spoke with Dr. Amor who accepted admission Was smoking cessation discussed for >3mins.? @ -No Was critical care preformed (if so, how long)? @ -No Were there social determinants of health that impacted care today? How? (Ho melessness, low income, unemployed, alcoholism, drug addiction, transportation, low edu. Level, literacy, decrease access to med. care, [facility], rehab)? @ -Alcoholism Was there de-escalation of care discussed even if they declined (Discuss DNR or withdrawal of care, Hospice)? DNR status @ -No What co-morbidities impacted this encounter? (DM, HTN, Smoking, COPD, CAD, Cancer, CVA, ARF, Chemo, Hep., AIDS, mental health diagnosis, sleep apnea, morbid obesity)? @ -None Was patient admitted / discharged? Hospital course, mention meds given and route, prescriptions, significant lab abnormalities, going to OR and other pertinent info. @ -42-year-old male with history of alcoholism presenting with alcohol intoxication. Supposedly the patient had a seizure, EMS was called by a bystander. Patient is currently inebriated and unable to provide meaningful history. He shows no signs of distress. Serum Alcohol level 501. Patient will be admitted for observation with [facility] protocol in place. I discussed this case my attending Dr. Torres. Undiagnosed new problem with uncertain prognosis? @ -No Drug Therapy requiring intensive monitoring for toxicity (Heparin, Nitro, Insulin, Cardizem)? @ -No Were any procedures done? @ -No Diagnosis/symptom? @ -Alcohol intoxication Acute, or Chronic, or Acute on Chronic? @ -Acute Uncomplicated (without systemic symptoms) or Complicated (systemic symptoms)? @ -Complicated Side effects of treatment? @ -No Exacerbation, Progression, or Severe Exacerbation? @ -No Poses a threat to life or bodily function? How? (Chest pain, USA, ID, pneumonia, PE, COPD, DKA, ARF, appy, cholecystitis, CVA, Diverticulitis, Homicidal, Suicidal, threat to staff... and all critical care pts) @ -No - Lab Data Result diagrams: 06/27/23 22:59 06/27/23 22:59 Lab Results 06/27/23 06/27/23 06/27/23 Range/Units 22:59 22:59 22:59 WBC 3.6 L (3.8-10.6) k/uL RBC 4.13 L (4.30-5.90) m/uL Hgb 12.4 L (13.0-17.5) gm/dL Hct 38.5 L (39.0-53.0) % MCV 93.2 (80.0-100.0) fL MCH 30.1 (25.0-35.0) pg MCHC 32.3 (31.0-37.0) g/dL RDW 15.4 (11.5-15.5) % Plt Count 113 L (150-450) k/uL MPV 8.9 Neutrophils % (Manual) 51 % Lymphocytes % (Manual) 47 % Monocytes % (Manual) 2 % Neutrophils # (Manual) 1.84 (1.3-7.7) k/uL Lymphocytes # (Manual) 1.69 (1.0-4.8) k/uL Monocytes # (Manual) 0.07 (0-1.0) k/uL Nucleated RBCs 0 (0-0) /100 WBC Manual Slide Review Performed PT 11.2 (9.0-12.0) sec INR 1.1 (<1.2) Sodium (137-145) mmol/L Potassium (3.5-5.1) mmol/L Chloride (98-107) mmol/L Carbon Dioxide (22-30) mmol/L Anion Gap mmol/L BUN (9-20) mg/dL Creatinine (0.66-1.25) mg/dL Est GFR (CKD-EPI)AfAm (>60 ml/min/1.73 sqM) Est GFR (CKD-EPI)NonAf (>60 ml/min/1.73 sqM) Glucose (74-99) mg/dL Calcium (8.4-10.2) mg/dL Phosphorus (2.5-4.5) mg/dL Magnesium (1.6-2.3) mg/dL Total Bilirubin (0.2-1.3) mg/dL AST (17-59) U/L ALT (4-49) U/L Alkaline Phosphatase (38-126) U/L Total Protein (6.3-8.2) g/dL Albumin (3.5-5.0) g/dL Amylase (30-110) U/L Lipase (23-300) U/L Urine Color Colorless Urine Appearance Clear (Clear) Urine pH 5.0 (5.0-8.0) Ur Specific [place] 1.003 (1.001-1.035) Urine Protein Trace H (Negative) Urine Glucose (UA) Negative (Negative) Urine Ketones Negative (Negative) Urine Blood Negative (Negative) Urine Nitrite Negative (Negative) Urine Bilirubin Negative (Negative) Urine Urobilinogen <2.0 (<2.0) mg/dL Ur Leukocyte Esterase Negative (Negative) Urine Opiates Screen Not Detected (NotDetected) Ur Oxycodone Screen Not Detected (NotDetected) Urine Methadone Screen Not Detected (NotDetected) Ur Propoxyphene Screen Not Detected (NotDetected) Ur Barbiturates Screen Not Detected (NotDetected) U Tricyclic Antidepress Not Detected (NotDetected) Ur Phencyclidine Scrn Not Detected (NotDetected) Ur Amphetamines Screen Not Detected (NotDetected) U Methamphetamines Scrn Not Detected (NotDetected) U Benzodiazepines Scrn Not Detected (NotDetected) Urine Cocaine Screen Not Detected (NotDetected) U Marijuana (THC) Screen Not Detected (NotDetected) Serum Alcohol mg/dL 06/27/23 Range/Units 22:59 WBC (3.8-10.6) k/uL RBC (4.30-5.90) m/uL Hgb (13.0-17.5) gm/dL Hct (39.0-53.0) % MCV (80.0-100.0) fL MCH (25.0-35.0) pg MCHC (31.0-37.0) g/dL RDW (11.5-15.5) % Plt Count (150-450) k/uL MPV Neutrophils % (Manual) % Lymphocytes % (Manual) % Monocytes % (Manual) % Neutrophils # (Manual) (1.3-7.7) k/uL Lymphocytes # (Manual) (1.0-4.8) k/uL Monocytes # (Manual) (0-1.0) k/uL Nucleated RBCs (0-0) /100 WBC Manual Slide Review PT (9.0-12.0) sec INR (<1.2) Sodium 131 L (137-145) mmol/L Potassium 4.4 (3.5-5.1) mmol/L Chloride 91 L (98-107) mmol/L Carbon Dioxide 21 L (22-30) mmol/L Anion Gap 19 mmol/L BUN 5 L (9-20) mg/dL Creatinine 0.71 (0.66-1.25) mg/dL Est GFR (CKD-EPI)AfAm >90 (>60 ml/min/1.73 sqM) Est GFR (CKD-EPI)NonAf >90 (>60 ml/min/1.73 sqM) Glucose 87 (74-99) mg/dL Calcium 9.0 (8.4-10.2) mg/dL Phosphorus 3.6 (2.5-4.5) mg/dL Magnesium 1.7 (1.6-2.3) mg/dL Total Bilirubin 1.2 (0.2-1.3) mg/dL AST 269 H (17-59) U/L ALT 107 H (4-49) U/L Alkaline Phosphatase 137 H (38-126) U/L Total Protein 9.3 H (6.3-8.2) g/dL Albumin 4.4 (3.5-5.0) g/dL Amylase 124 H (30-110) U/L Lipase 184 (23-300) U/L Urine Color Urine Appearance (Clear) Urine pH (5.0-8.0) Ur Specific [place] (1.001-1.035) Urine Protein (Negative) Urine Glucose (UA) (Negative) Urine Ketones (Negative) Urine Blood (Negative) Urine Nitrite (Negative) Urine Bilirubin (Negative) Urine Urobilinogen (<2.0) mg/dL Ur Leukocyte Esterase (Negative) Urine Opiates Screen (NotDetected) Ur Oxycodone Screen (NotDetected) Urine Methadone Screen (NotDetected) Ur Propoxyphene Screen (NotDetected) Ur Barbiturates Screen (NotDetected) U Tricyclic Antidepress (NotDetected) Ur Phencyclidine Scrn (NotDetected) Ur Amphetamines Screen (NotDetected) U Methamphetamines Scrn (NotDetected) U Benzodiazepines Scrn (NotDetected) Urine Cocaine Screen (NotDetected) U Marijuana (THC) Screen (NotDetected) Serum Alcohol 501 H* mg/dL Disposition Clinical Impression: Alcoholic intoxication Disposition: ADMITTED IP TO THIS [facility] Condition: Fair Time of Disposition: 01:03
[2023-06-28 01:45] LABS: Alcohol 501 mg/dL
[2023-06-28 10:59] LABS: Basophils % (A) 1 %; Eosinophils # (A) 0.1 k/uL (0-0.7); Eosinophils % (A) 2 %; HCT 40.2 % (39.0-53.0); HGB 12.8 gm/dL (13.0-17.5); Lymphocytes # (A) 0.8 k/uL (1.0-4.8); Lymphocytes % (A) 29 %; MCH 29.8 pg (25.0-35.0); MCHC 31.9 g/dL (31.0-37.0); MCV 93.5 fL (80.0-100.0); Mean Platelet Volume 10.9; Monocytes # (A) 0.3 k/uL (0-1.0); Monocytes % (A) 10 %; Neutrophils # (A) 1.6 k/uL (1.3-7.7); Neutrophils % (A) 55 %; Platelet Count 109 k/uL (150-450); RDW 15.4 % (11.5-15.5); WBC 2.8 k/uL (3.8-10.6)
[2023-06-28] MEDS: LORazepam 2 MG/ML INJ IV PRN ×2 (11:00→21:05)
[2023-06-28 11:12] LABS: African American GFR (CKD) >90 (>60 ml/min/1.73 sqM); Anion Gap 15 mmol/L; Blood Urea Nitrogen 5 mg/dL (9-20); Calcium 9.2 mg/dL (8.4-10.2); Carbon Dioxide 22 mmol/L (22-30); Chloride 102 mmol/L (98-107); Glucose 85 mg/dL (74-99); Non-African American GFR(CKD) >90 (>60 ml/min/1.73 sqM); Potassium 4.6 mmol/L (3.5-5.1); Sodium 139 mmol/L (137-145)
--- NOTE | 2023-06-28 15:34 | P.HPIM ---
History of Present Illness H&P Date: 06/28/23 This is a 42-year-old male who presented to the emergency department intoxicated with alcohol. Patient did arrive by EMS and apparently someone was on the scene and reported seizure-like activity. Patient follows with Dr. Cho in the outpatient setting with a past medical history of alcohol abuse, hypertension, seizure disorder. Patient does not take any medications on a daily basis. Karyn ent admits to drinking approximately 5-6 tall cans of Beers daily and has been to alcohol rehab before. Patient when asking if willing to go to rehab patient reported he wanted to quit. Patient's alcohol level was 501 on admission. Other labs reviewed and within normal limits other than patient sodium was 131 on admission although repeat today is 139, creatinine is 0.68, AST 269, ALT 107, alk phos 137, amylase 124, lipase 184 and urinalysis and drug screen is negative. Patient was admitted for alcohol intoxication placed on CIIN protocol. Review Of Systems: Constitutional: No fever, no chills, no night sweats. No weight change. No weakness, fatigue or lethargy. No daytime sleepiness. EENT: No headache. No blurred vision or double vision, no loss of vision. No loss of Hearing, no ringing in the ears, no dizziness. No nasal drainage or congestion. No epistaxis. No sore throat. Lungs: No shortness of breath, cough, no sputum production. No wheezing. Cardiovascular: No chest pain, no lower extremity edema. No palpitations. No paroxysmal nocturnal dyspnea. No orthopnea. No lightheadedness or dizziness. No syncopal episodes. Abdominal: No abdominal pain. Reports some nausea, no vomiting. No diarrhea. No constipation. No bloody or tarry stools.. No loss of appetite. Genitourinary: No dysuria, increased frequency, urgency. No urinary retention. Musculoskeletal: No myalgias. No muscle weakness, no gait dysfunction, no frequent falls. No back pain. No neck pain. Integumentary: No wounds, no lesions. No rash or pruritus. No unusual bruising. No change in hair or nails. Neurologic: No aphasia. No facial droop. No change in mentation. No head injury. No headache. No paralysis. No paresthesia. Psychiatric: No depression. No anxiety. No mood swings. Endocrine: No abnormal blood sugars. No weight change. No excessive sweating or thirst. No cold intolerance. PHYSICAL EXAMINATION: GENERAL: The patient is lethargic although arousable, alert and oriented x4, Well developed, thin built HEENT: Pupils are round and equally reacting to light. EOMI. no scleral icterus. No conjunctival pallor. Normocephalic, atraumatic. No pharyngeal erythema. No thyromegaly. CARDIOVASCULAR: S1 and S2 muffled PULMONARY: Clear to auscultation with no wheezing or rhonchi noted. ABDOMEN: soft. Nontender on exam. non-distended, normoactive bowel sounds. No palpable organomegaly. MUSCULOSKELETAL: No joint swelling or deformity. EXTREMITIES: No cyanosis, clubbing, or pedal edema. NEUROLOGICAL: Gross neurological examination did not reveal any focal deficits. SKIN: No rashes. Assessment: Alcohol intoxication with concerns for acute alcohol withdrawal Chronic alcohol abuse History of seizures, most likely alcohol related History of hypertension GI prophylaxis DVT prophylaxis Full code Plan: Will initiate IV hydration as patient is not eating much and continue CIWA protocol. Sheilafran added as well as patient reports he was nauseated this morning Encouraged increased activity as tolerated and oral intake Patient reports to drinking heavily at least 5-6 total cans of beer daily and denies any other illicit drug use or smoking. Patient reports he has gone to rehab before Discussed with the patient about alcohol rehab and patient reports he wants to quit. Will provide resources for rehab although unsure if patient is truly wanting to quit at this time. We'll monitor overnight for any impending withdrawals and continue CIWA protocol The impression and plan of care has been dictated by Nadia Young, nurse practitioner as directed. Dr. Joseph MD I have performed a history and examination and MDM of this patient, discussed the same with the dictator, and agree with the dictator's assessment and plan as written ,documented as a scribe. Based on total visit time, I have performed more than 50% of the visit. Any additional findings or plans will be noted. Past Medical History Past Medical History: Hypertension, Pneumonia, Seizure Disorder Additional Past Medical History / Comment(s): ETOH History of Any Multi-Drug Resistant Organisms: None Reported Past Surgical History: Joint Replacement, Orthopedic Surgery Past Anesthesia/Blood Transfusion Reactions: No Reported Reaction Past Psychological History: No Psychological Hx Reported Smoking Status: Never smoker Past Alcohol Use History: Abuse, Heavy Past Drug Use History: None Reported Medications and Allergies Home Medications Medication Instructions Recorded Confirmed Type Colchicine [Colcrys] 0.6 mg PO DAILY 06/28/23 06/28/23 History HYDROcodone/APAP 5-325MG [[place] 1 tab PO Q6HR PRN 06/28/23 06/28/23 History 5-325] Indomethacin [Indocin] 50 mg PO TID 06/28/23 06/28/23 History Allergies Allergy/AdvReac Type Severity Reaction Status Date / Time No Known Allergies Allergy Verified 06/28/23 14:34 Physical Exam Vitals: Vital Signs Temp Pulse Pulse Pulse Resp BP BP 06/28/23 07:23 98.5 F 107 H 18 102/65 06/28/23 03:43 97.6 F 100 20 100/66 06/28/23 03:00 98 16 135/89 06/27/23 22:11 98.7 F 96 18 131/98 Pulse Ox 06/28/23 07:23 96 06/28/23 03:43 97 06/28/23 03:00 94 L 06/27/23 22:11 98 Intake and Output 06/27/23 06/28/23 06/28/23 22:59 06:59 14:59 Intake Total 600 Output Total 500 600 Balance 100 -600 Intake: Oral 600 Output: Urine 500 600 Other: Voiding Method Urinal # Voids 1 Weight 81.647 kg 81.647 kg Results CBC & Chem 7: 06/28/23 10:47 06/28/23 10:47 Labs: Abnormal Lab Results - Last 24 Hours (Table) 06/27/23 06/27/23 06/27/23 Range/Units 22:59 22:59 22:59 WBC 3.6 L (3.8-10.6) k/uL RBC 4.13 L (4.30-5.90) m/uL Hgb 12.4 L (13.0-17.5) gm/dL Hct 38.5 L (39.0-53.0) % Plt Count 113 L (150-450) k/uL Sodium 131 L (137-145) mmol/L Chloride 91 L (98-107) mmol/L Carbon Dioxide 21 L (22-30) mmol/L BUN 5 L (9-20) mg/dL AST 269 H (17-59) U/L ALT 107 H (4-49) U/L Alkaline Phosphatase 137 H (38-126) U/L Total Protein 9.3 H (6.3-8.2) g/dL Amylase 124 H (30-110) U/L Urine Protein Trace H (Negative) Serum Alcohol 501 H* mg/dL Thrombosis Risk Factor Assmnt - DVT/VTE Prophylaxis DVT/VTE Prophylaxis: Low risk, early ambulation encouraged - Choose All That Apply Any of the Below Risk Factors Present?: Yes Each Factor Represents 1 point: Age 41-60 years Other Risk Factors: No Thrombosis Risk Factor Assessment Total Risk Factor Score: 1 Thrombosis Risk Factor Assessment Level: Low Risk Assessment and Plan Time with Patient: Greater than 30
[2023-06-28] MEDS: SODIUM CHLORIDE 0.9% 1,000 ML IV SCH (18:18)
--- NOTE | 2023-06-28 22:30 | HP ---
HISTORY AND PHYSICAL CHIEF COMPLAINT: Acute alcohol intoxication. HISTORY OF PRESENT ILLNESS: This is another admission recently for this 42-year-old male. He was just in the hospital recently. He came back intoxicated and in DTs. REVIEW OF SYSTEMS: He has no other complaints including abdominal pain, confusion, neurologic problems, etc. Past medical history, family history, and personal and social histories are all otherwise unremarkable or unchanged. PHYSICAL EXAMINATION: VITAL SIGNS: Blood pressure is 146/92 with a pulse of 93, respirations of 34, and he is afebrile. GENERAL: He appeared to be slender. He was slightly drowsy. SKIN: Dry. HEAD, EARS, EYES, NOSE, MOUTH, AND THROAT: Normal. NECK: Neck veins are not distended. CHEST: Clear. CARDIAC: Demonstrates sinus tachycardia. ABDOMEN: Flat, soft, and nontender without any visceromegaly or masses. Bowel sounds are present. EXTREMITIES: Normal. NEUROLOGIC: He is intact. DIAGNOSES: He is admitted to the hospital with diagnoses: 1. Acute alcohol intoxication. 2. Impending delirium tremens. PLAN: 1. Bed rest. 2. IV fluids. 3. CIWA protocol. MMODL / LILLIEN: [id number] /
[2023-06-29] MEDS: SODIUM CHLORIDE 0.9% 1,000 ML IV SCH ×2 (04:33→17:59)
[2023-06-29] MEDS ORDERED: ACETAMINOPHEN TAB 325 MG TAB PO PRN (04:56)
[2023-06-29] MEDS: LORazepam 2 MG/ML INJ IV PRN ×2 (08:19→11:03)
[2023-06-29] MEDS: THIAMINE 100 MG TAB PO SCH (08:19)
[2023-06-29 11:32] LABS: ALT 115 U/L (10-49); AST 335 U/L (14-35); Albumin 3.8 d/dL (3.8-4.9); Albumin/Globulin Ratio 0.93 Ratio (1.60-3.17); Alkaline Phosphatase 179 U/L (41-126); BUN/Creat Ratio 6.62 Ratio (12.00-20.00); Blood Urea Nitrogen 5.3 mg/dL (9.0-27.0); Calcium 9.4 mg/dL (8.7-10.3); Carbon Dioxide 24.9 mmol/L (21.6-31.8); Chloride 99 mmol/L (96-109); Globulin 4.1 d/dL (1.6-3.3); Glucose 94 mg/dL (70-110); Potassium 4.2 mmol/L (3.5-5.5); Sodium 134 mmol/L (135-145); Total Bilirubin 1.4 mg/dL (0.3-1.2); Total Protein 7.9 d/dL (6.2-8.2)
[2023-06-29] MEDS ORDERED: COLCHICINE 0.6 MG EACH PO SCH (11:45)
[2023-06-29 11:51] LABS: Basophils # (A) 0.03 X 10*3/uL (0.00-0.10); Basophils % (A) 0.7 %; Eosinophils # (A) 0.03 X 10*3/uL (0.04-0.35); Eosinophils % (A) 0.7 %; HCT 36.3 % (39.6-50.0); HGB 11.9 d/dL (13.0-17.0); Lymphocytes # (A) 1.25 X 10*3/uL (0.90-5.00); Lymphocytes % (A) 30.4 %; MCH 29.5 pg (27.0-32.0); MCHC 32.8 d/dL (32.0-37.0); MCV 89.9 FL (80.0-97.0); Mean Platelet Volume 11.7 FL (9.5-12.2); Monocytes # (A) 0.72 X 10*3/uL (0.20-1.00); Monocytes % (A) 17.5 %; NRBC Per 100 WBC 0 X 10*3/uL (0.00-0.01); Neutrophils # (A) 2.07 X 10*3/uL (1.80-7.70); Neutrophils % (A) 50.5 %; Platelet Count 98 X 10*3/uL (140-440); RBC 4.04 X 10*6/uL (4.40-5.60); RBC Morphology Normal (Normal); RDW 15.5 % (11.5-14.5); WBC 4.11 X 10*3/uL (4.50-10.00)
[2023-06-29] MEDS: HYDROcodone/APAP 5-325MG 1 EACH TAB PO PRN ×2 (12:29→20:34)
--- NOTE | 2023-06-29 14:30 | XR ---
EXAMINATION TYPE: XR knee complete LT DATE OF EXAM: 06/29/2023 CLINICAL HISTORY: Pain and limited mobility TECHNIQUE: Three views of the left knee are obtained. COMPARISON: Left leg x-ray July 14, 2023. FINDINGS: There is no acute fracture/dislocation evident in left knee. The tri-compartment joint sp aces appear within normal limits. The overlying soft tissue appears unremarkable. Well-defined bony formation from anterior tibial tuberosity could reflect product of old [place] Schlatter lesion. IMPRESSION: As above.
[2023-06-29] MEDS ORDERED: KETOROLAC 15 MG/ML 1 ML VIAL IVP STA (15:10)
--- NOTE | 2023-06-29 19:38 | P.PN ---
Subjective Progress Note Date: 06/29/23 This is a 42-year-old male who presented to the emergency department intoxicated with alcohol. Patient did arrive by EMS and apparently someone was on the scene and reported seizure-like activity. Patient follows with Dr. Cho in the outpatient setting with a past medical history of alcohol abuse, hypertension, seizure disorder. Patient does not take any medications on a daily basis. Patient admits to drinking approximately 5-6 tall cans of Beers daily and has been to alcohol rehab before. Patient when asking if willing to go to rehab patient reported he wanted to quit. Patient's alcohol level was 501 on admission. Other labs reviewed and within normal limits other than patient sodium was 131 on admission although repeat today is 139, creatinine is 0.68, AST 269, ALT 107, alk phos 137, amylase 124, lipase 184 and urinalysis and drug screen is negative. Patient was admitted for alcohol intoxication placed on CIWI protocol. 06/29/2023 Patient has been monitored overnight no signs of acute alcohol withdrawal he does have some nausea and mild diarrhea but no vomiting. His main complete is pain in the left knee. The knee is swollen and tender patient reports he was started on colchicine outpatient and also on norco for pain management. This will be resumed. Bilirubin and liver enzymes are increased. Review of Systems Constitutional: Denied any fatigue denied any fever. Cardio vascular: denied any chest pain, palpitations Gastrointestinal: denied any nausea, vomiting, diarrhea Pulmonary: Denied any shortness of breath cough Neurologic denied any new focal deficits All inpatient medications were reviewed and appropriate changes in these medications as dictated in the interval history and assessment and plan. PHYSICAL EXAMINATION: GENERAL: The patient is alert and oriented x3, not in any acute distress. Well developed, well nourished. HEENT: Pupils are round and equally reacting to light. EOMI. No scleral icterus. No conjunctival pallor. Normocephalic, atraumatic. No pharyngeal erythema. No thyromegaly. CARDIOVASCULAR: S1 and S2 present. No murmurs, rubs, or gallops. PULMONARY: Chest is clear to auscultation, no wheezing or crackles. ABDOMEN: Soft, nontender, nondistended, normoactive bowel sounds. No palpable organomegaly. MUSCULOSKELETAL: Left knee swollen tender and limited mobility. EXTREMITIES: No cyanosis, clubbing, or pedal edema. NEUROLOGICAL: Gross neurological examination did not reveal any focal deficits. SKIN: No rashes. Assessment: Alcohol intoxication with concerns for acute alcohol withdrawal Chronic alcohol abuse History of seizures, most likely alcohol related Alcoholic hepatitis Left knee pain and hx of gout likely an acute exacerbation History of hypertension GI prophylaxis DVT prophylaxis Full code Plan: Continue on IV fluids and ativan CIWA protocol Resume colchicine and norco, check knee xray and orthopedic consultation Patient reports to drinking heavily at least 5-6 total cans of beer daily and denies any other illicit drug use or smoking. Patient reports he has gone to rehab before Discussed with the patient about alcohol rehab and patient reports he wants to quit. Will provide resources for rehab although unsure if patient is truly wanting to quit at this time. We'll monitor overnight for any impending withdrawals and continue CIWA protocol Gallbladder US ordered, for the elevated bilirubin and increasing LFTs. The impression and plan of care has been dictated by Daisha Zapata, Nurse Practitioner as directed. Dr. Joseph MD I have performed a history and physical examination and medical decision making of this patient, discussed the same with the dictator, and agree with the dictators assessment and plan as written, documented as a scribe. Based on total visit time, I have performed more than 50% of this visit. Objective - Vital Signs Vital signs: Vital Signs Temp 98.9 F 06/29/23 11:17 Pulse 96 06/29/23 11:17 Resp 16 06/29/23 11:17 BP 131/90 06/29/23 11:17 Pulse Ox 98 06/29/23 11:17 FiO2 Intake & Output 06/28/23 06/29/23 06/29/23 18:59 06:59 18:59 Intake Total 1900 Output Total 1300 700 Balance -1300 1200 Intake: Intake, IV Titration 900 Amount Sodium Chloride 0.9% 1, 900 000 ml @ 75 mls/hr IV . [id number] Rx#:[id number] Oral 1000 Output: Urine 1300 700 Other: Voiding Method Urinal # Voids 1 3 # Bowel Movements 2 - Labs CBC & Chem 7: 06/29/23 05:58 06/29/23 05:58 Labs: Abnormal Lab Results - Last 24 Hours (Table) 06/29/23 06/29/23 Range/Units 05:58 05:58 WBC 4.11 L (4.50-10.00) X 10*3/uL RBC 4.04 L (4.40-5.60) X 10*6/uL Hgb 11.9 L (13.0-17.0) d/dL Hct 36.3 L (39.6-50.0) % RDW 15.5 H (11.5-14.5) % Plt Count 98 L (140-440) X 10*3/uL Eosinophils # 0.03 L (0.04-0.35) X 10*3/uL Sodium 134 L (135-145) mmol/L BUN 5.3 L (9.0-27.0) mg/dL BUN/Creatinine Ratio 6.62 L (12.00-20.00) Ratio Total Bilirubin 1.4 H (0.3-1.2) mg/dL AST 335 H (14-35) U/L ALT 115 H (10-49) U/L Alkaline Phosphatase 179 H (41-126) U/L Globulin 4.1 H (1.6-3.3) d/dL Albumin/Globulin Ratio 0.93 L (1.60-3.17) Ratio Assessment and Plan Time with Patient: Less than 30
[2023-06-29] MEDS: COLCHICINE 0.6 MG EACH PO SCH (20:36)
[2023-06-29] MEDS: PANTOPRAZOLE 40 MG/10 ML VIAL IVP SCH (20:36)
[2023-06-30] MEDS: LORazepam 2 MG/ML INJ IV PRN ×2 (01:59→09:10)
[2023-06-30] MEDS: SODIUM CHLORIDE 0.9% 1,000 ML IV SCH ×2 (05:24→19:59)
--- NOTE | 2023-06-30 07:56 | US ---
EXAMINATION TYPE: US gallbladder DATE OF EXAM: 06/30/2023 COMPARISON: NONE CLINICAL INDICATION: Male, 42 years old with history of elevated LFTs; eyes jaundice, elevated lft's TECHNIQUE: Multiple sonographic images of the right upper quadrant are obtained. FINDINGS: EXAM MEASUREMENTS: Liver Length: 18.5 cm Gallbladder Wall: 0.2 cm CBD: 0.5 cm Right Kidney: 11.5 x 4.7 x 4.2 cm Pancreas: not seen due to bowel gas Liver: upper limits of normal for size Gallbladder: wnl Evidence for sonographic Hatch's sign: no CBD: wnl Right Kidney: wnl IMPRESSION: No distinct abnormality seen.
[2023-06-30] MEDS: PANTOPRAZOLE 40 MG/10 ML VIAL IVP SCH ×2 (09:04→19:53)
[2023-06-30] MEDS: COLCHICINE 0.6 MG EACH PO SCH ×2 (09:04→19:54)
[2023-06-30] MEDS: THIAMINE 100 MG TAB PO SCH (09:04)
--- NOTE | 2023-06-30 10:21 | XR ---
EXAMINATION TYPE: XR chest 2V DATE OF EXAM: 06/30/2023 COMPARISON: 10/14/2021 HISTORY: Chest pain TECHNIQUE: Frontal and lateral views of the chest are obtained. FINDINGS: There is no focal air space opacity. No evidence for pneumothorax. No pleural effusion. The cardiac silhouette size is within normal limits. The osseous structures are grossly intact. IMPRESSION: 1. No acute cardiopulmonary process.
[2023-06-30 10:35] LABS: Magnesium 1.6 mg/dL (1.5-2.4)
[2023-06-30 10:39] LABS: ALT 85 U/L (10-49); AST 139 U/L (14-35); Albumin 3.5 d/dL (3.8-4.9); Albumin/Globulin Ratio 0.92 Ratio (1.60-3.17); Alkaline Phosphatase 134 U/L (41-126); BUN/Creat Ratio 6.25 Ratio (12.00-20.00); Calcium 9.2 mg/dL (8.7-10.3); Carbon Dioxide 21.9 mmol/L (21.6-31.8); Chloride 102 mmol/L (96-109); Globulin 3.8 d/dL (1.6-3.3); Glucose 102 mg/dL (70-110); Potassium 4.4 mmol/L (3.5-5.5); Sodium 135 mmol/L (135-145); Total Bilirubin 1.1 mg/dL (0.3-1.2); Total Protein 7.3 d/dL (6.2-8.2)
--- NOTE | 2023-06-30 10:55 | P.CNOR ---
History of Present Illness - [facility] Consult date: 06/30/23 Consult reason: joint pain History of present illness: The shunt is a 42-year-old male who presents with several month history of left knee pain intermittently. He notices worsening over the past week. He can't recall a specific traumatic event. He notes swelling and diffuse pain. Recently he notes he's been limping. He has had several binges recently. He has been on gout medications in the past. Review of Systems As per [facility] Past Medical History Past Medical History: Hypertension, Pneumonia, Seizure Disorder Additional Past Medical History / Comment(s): ETOH History of Any Multi-Drug Resistant Organisms: None Reported Past Surgical History: Joint Replacement, Orthopedic Surgery Additional Past Surgical History / Comment(s): Right knee surgery, left leg incision and drainage for spider bite Past Anesthesia/Blood Transfusion Reactions: No Reported Reaction Past Psychological History: No Psychological Hx Reported Smoking Status: Never smoker Past Alcohol Use History: Abuse, Heavy Past Drug Use History: None Reported Medications and Allergies Home Medications Medication Instructions Recorded Confirmed Type Colchicine [Colcrys] 0.6 mg PO DAILY 06/28/23 06/28/23 History HYDROcodone/APAP 5-325MG [[place] 1 tab PO Q6HR PRN 06/28/23 06/28/23 History 5-325] Indomethacin [Indocin] 50 mg PO TID 06/28/23 06/28/23 History Allergies Allergy/AdvReac Type Severity Reaction Status Date / Time No Known Allergies Allergy Verified 06/28/23 14:34 Physical Examination - Knee left Appearance: effusion Effusion grade: grade 2 Tenderness with palpation: medial, lateral Pain: throughout ROM Gait: limping ROM: extension: -15 degrees ROM: flexion: 110 degrees Strength: extension: 5/5 Strength: flexion: 5/5 Results The patient is a well-developed male of mesomorphic habitus. HEENT exam is nonfocal, neck supple. He has painless passive motion of his left hip. On examination of his left knee has mild increased warmth. There is no erythema. He is tender diffusely about the medial and lateral joint line. He has limited painful motion. Collaterals are stable, Jad was negative, Marysol's is equ ivocal. His distal neurovascular appears intact in the left lower extremity. - Labs Labs: Abnormal Lab Results - Last 24 Hours (Table) 06/29/23 06/29/23 06/30/23 Range/Units 05:58 05:58 05:27 WBC 4.11 L (4.50-10.00) X 10*3/uL RBC 4.04 L (4.40-5.60) X 10*6/uL Hgb 11.9 L (13.0-17.0) d/dL Hct 36.3 L (39.6-50.0) % RDW 15.5 H (11.5-14.5) % Plt Count 98 L (140-440) X 10*3/uL Eosinophils # 0.03 L (0.04-0.35) X 10*3/uL Sodium 134 L (135-145) mmol/L BUN 5.3 L 5.0 L (9.0-27.0) mg/dL BUN/Creatinine Ratio 6.62 L 6.25 L (12.00-20.00) Ratio Total Bilirubin 1.4 H (0.3-1.2) mg/dL AST 335 H 139 H (14-35) U/L ALT 115 H 85 H (10-49) U/L Alkaline Phosphatase 179 H 134 H (41-126) U/L Albumin 3.5 L (3.8-4.9) d/dL Globulin 4.1 H 3.8 H (1.6-3.3) d/dL Albumin/Globulin Ratio 0.93 L 0.92 L (1.60-3.17) Ratio H & H 06/27/23 06/28/23 06/29/23 Range/Units 22:59 10:47 05:58 Hgb 12.4 L 12.8 L 11.9 L (13.0-17.5) gm/dL Hct 38.5 L 40.2 36.3 L (39.0-53.0) % Coagulation 06/27/23 Range/Units 22:59 INR 1.1 (<1.2) Result Diagrams: 06/29/23 05:58 06/30/23 05:27 - Diagnostic results Knee x-ray: image reviewed (X-rays of the left knee are reviewed and show minimal degenerative changes.) Assessment and Plan Assessment: Left knee effusion/synovitis/probable gouty arthritis Alcohol abuse Plan: I talked the patient regarding his condition at this point recommend continuation of conservative measures. We will continue with his gout medications. We will reassess tomorrow and consider aspiration with cortisone injection if still quite symptomatic. We will have him start ambulating utilizing crutches for support.
[2023-06-30] MEDS: INDOMETHACIN 25 MG CAP PO SCH ×2 (11:13→20:00)
--- NOTE | 2023-06-30 14:44 | P.PN ---
Subjective Progress Note Date: 06/30/23 This is a 42-year-old male who presented to the emergency department intoxicated with alcohol. Patient did arrive by EMS and apparently someone was on the scene and reported seizure-like activity. Patient follows with Dr. Cho in the outpatient setting with a past medical history of alcohol abuse, hypertension, seizure disorder. Patient does not take any medications on a daily basis. Patient admits to drinking approximately 5-6 tall cans of Beers daily and has been to alcohol rehab before. Patient when asking if willing to go to rehab patient reported he wanted to quit. Patient's alcohol level was 501 on admission. Other labs reviewed and within normal limits other than patient sodium was 131 on admission although repeat today is 139, creatinine is 0.68, AST 269, ALT 107, alk phos 137, amylase 124, lipase 184 and urinalysis and drug screen is negative. Patient was admitted for alcohol intoxication placed on CIIN protocol. 06/29/2023 Patient has been monitored overnight no signs of acute alcohol withdrawal he does have some nausea and mild diarrhea but no vomiting. His main complete is pain in the left knee. The knee is swollen and tender patient reports he was started on colchicine outpatient and also on norco for pain management. This will be resumed. Bilirubin and liver enzymes are increased. 06/30/2023 Patient is evaluated today no signs of acute withdrawal overnight. Patient does states he was tremoring and required ativan overnight. Continues with significant pain to the left knee today. Xray was negative for acute fracture. His bilirubin 1.1 today and ast/alt and alkphos are better. He had temp 100.1 overnight. Viral panel negative for covid, rsv, influenza. Chest xray showing no acute process. Orthopedics has evaluated the patient and recommending to con tinue colchicine and monitor overnight may require cortisone injection and aspiration of the left knee if not improving. Review of Systems Constitutional: Denied any fatigue denied any fever. Cardio vascular: denied any chest pain, palpitations Gastrointestinal: denied any nausea, vomiting, diarrhea Pulmonary: Denied any shortness of breath cough Neurologic denied any new focal deficits All inpatient medications were reviewed and appropriate changes in these medications as dictated in the interval history and assessment and plan. PHYSICAL EXAMINATION: GENERAL: The patient is alert and oriented x3, not in any acute distress. Well developed, well nourished. HEENT: Pupils are round and equally reacting to light. EOMI. No scleral icterus. No conjunctival pallor. Normocephalic, atraumatic. No pharyngeal erythema. No thyromegaly. CARDIOVASCULAR: S1 and S2 present. No murmurs, rubs, or gallops. PULMONARY: Chest is clear to auscultation, no wheezing or crackles. ABDOMEN: Soft, nontender, nondistended, normoactive bowel sounds. No palpable organomegaly. MUSCULOSKELETAL: Left knee swollen tender and limited mobility. EXTREMITIES: No cyanosis, clubbing, or pedal edema. NEUROLOGICAL: Gross neurological examination did not reveal any focal deficits. SKIN: No rashes. Assessment: Alcohol intoxication with concerns for acute alcohol withdrawal Chronic alcohol abuse History of seizures, most likely alcohol related Alcoholic hepatitis Left knee pain and hx of gout likely an acute gout flare up, there is left knee effusion also. History of hypertension GI prophylaxis DVT prophylaxis Full code Plan: Continue on IV fluids and ativan CIWA protocol Resume colchicine and norco, ortho f/u tomorrow may need aspiration and cortisone injection. Patient reports to drinking heavily at least 5-6 total cans of beer daily and denies any other illicit drug use or smoking. Patient reports he has gone to rehab before Discussed with the patient about alcohol rehab and patient reports he wants to quit. Will provide resources for rehab although unsure if patient is truly wanting to quit at this time. We'll monitor overnight for any impending withdrawals and continue CIWA protocol The impression and plan of care has been dictated by Daisha Zapata, Nurse Practitioner as directed. Dr. Joseph MD I have performed a history and physical examination and medical decision making of this patient, discussed the same with the dictator, and agree with the dictators assessment and plan as written, documented as a scribe. Based on total visit time, I have performed more than 50% of this visit. Objective - Vital Signs Vital signs: Vital Signs Temp 99.8 F H 06/30/23 07:07 Pulse 101 H 06/30/23 07:07 Resp 16 06/30/23 07:07 BP 139/93 06/30/23 07:07 Pulse Ox 96 06/30/23 07:07 FiO2 Intake & Output 06/29/23 06/30/23 06/30/23 18:59 06:59 18:59 Other: # Voids 300 2 - Labs CBC & Chem 7: 06/29/23 05:58 06/30/23 05:27 Labs: Abnormal Lab Results - Last 24 Hours (Table) 06/29/23 06/29/23 Range/Units 05:58 05:58 WBC 4.11 L (4.50-10.00) X 10*3/uL RBC 4.04 L (4.40-5.60) X 10*6/uL Hgb 11.9 L (13.0-17.0) d/dL Hct 36.3 L (39.6-50.0) % RDW 15.5 H (11.5-14.5) % Plt Count 98 L (140-440) X 10*3/uL Eosinophils # 0.03 L (0.04-0.35) X 10*3/uL Sodium 134 L (135-145) mmol/L BUN 5.3 L (9.0-27.0) mg/dL BUN/Creatinine Ratio 6.62 L (12.00-20.00) Ratio Total Bilirubin 1.4 H (0.3-1.2) mg/dL AST 335 H (14-35) U/L ALT 115 H (10-49) U/L Alkaline Phosphatase 179 H (41-126) U/L Globulin 4.1 H (1.6-3.3) d/dL Albumin/Globulin Ratio 0.93 L (1.60-3.17) Ratio Assessment and Plan Time with Patient: Less than 30
[2023-06-30 18:07] LABS: C Reactive Protein <0.30 mg/dL (0.00-0.80); Uric Acid 7.7 mg/dL (3.7-8.7)
[2023-07-01] MEDS: PANTOPRAZOLE 40 MG/10 ML VIAL IVP SCH ×2 (08:26→20:16)
[2023-07-01] MEDS: THIAMINE 100 MG TAB PO SCH (08:26)
[2023-07-01] MEDS: INDOMETHACIN 25 MG CAP PO SCH ×2 (08:27→20:15)
[2023-07-01] MEDS: COLCHICINE 0.6 MG EACH PO SCH ×2 (08:27→20:16)
[2023-07-01] MEDS: SODIUM CHLORIDE 0.9% 1,000 ML IV SCH ×2 (08:28→20:16)
--- NOTE | 2023-07-01 14:20 | P.PN ---
Subjective Progress Note Date: 07/01/23 Principal diagnosis: left knee pain Patient was evaluated today at bedside, he was sleeping upon arrival, he was easily awoken. Patient states left knee is feeling a lot better today. Patient was able to ambulate a little bit on the knee, his range of motion is much improved. No other orthopedic complaints at this time, denies fever or chills. Objective - Vital Signs Vital signs: Vital Signs Temp 97.4 F L 07/01/23 11:40 Pulse 81 07/01/23 11:40 Resp 16 07/01/23 11:40 BP 143/85 07/01/23 11:40 Pulse Ox 98 07/01/23 11:40 FiO2 Intake & Output 06/30/23 07/01/23 07/01/23 18:59 06:59 18:59 Intake Total 1200 Balance 1200 Intake: Oral 1200 Other: Voiding Method Toilet Urinal # Voids 3 - Exam Left lower extremity: Mild effusion noted at the patella generalized tenderness with palpation along the medial and lateral joint line. His posterior compartments of the upper and lower leg are soft and compressible. Calf is soft, no tenderness with palpation. Painless range of motion of the hip. Mild tenderness with passive and active motion in flexion and extension of the knee. Plantar flexion, dorsiflexion, EHL, FHL are intact. Sensory and light touch is intact throughout the extremity - Labs CBC & Chem 7: 06/29/23 05:58 06/30/23 05:27 Assessment and Plan Assessment: Left knee pain Left knee effusion Left knee gouty arthropathy/synovitis Alcohol abuse Plan: With patient improving on oral anti-inflammatories and current treatment, we will hold off on an aspirin and cortisone injection Recommend weight-bear as tolerated, utilize crutches or walker for assistance Icing and elevating techniques were discussed Pain control, recommend continuing use of indomethacin at this time DVT prophylaxis per primary medical service Other medical specialty recommendations appreciated Discharge planning: Patient discharge and follow-up in the outpatient setting, please contact our orthopedic service with any questions regarding this patient. Time with Patient: Less than 30
[2023-07-01] MEDS ORDERED: MELATONIN 3 MG TABLET PO SCH (21:00)
--- NOTE | 2023-07-01 23:50 | P.PN ---
Subjective Progress Note Date: 07/01/23 This is a 42-year-old male who presented to the emergency department intoxicated with alcohol. Patient did arrive by EMS and apparently someone was on the scene and reported seizure-like activity. Patient follows with Dr. Cho in the outpatient setting with a past medical history of alcohol abuse, hypertension, seizure disorder. Patient does not take any medications on a daily basis. Patient admits to drinking approximately 5-6 tall cans of Beers daily and has been to alcohol rehab before. Patient when asking if willing to go to rehab patient reported he wanted to quit. Patient's alcohol level was 501 on admission. Other labs reviewed and within normal limits other than patient sodium was 131 on admission although repeat today is 139, creatinine is 0.68, AST 269, ALT 107, alk phos 137, amylase 124, lipase 184 and urinalysis and drug screen is negative. Patient was admitted for alcohol intoxication placed on CIWA protocol. 06/29/2023 Patient has been monitored overnight no signs of acute alcohol withdrawal he does have some nausea and mild diarrhea but no vomiting. His main complete is pain in the left knee. The knee is swollen and tender patient reports he was started on colchicine outpatient and also on norco for pain management. This will be resumed. Bilirubin and liver enzymes are increased. 06/30/2023 Patient is evaluated today no signs of acute withdrawal overnight. Patient does states he was tremoring and required ativan overnight. Continues with significant pain to the left knee today. Xray was negative for acute fracture. His bilirubin 1.1 today and ast/alt and alkphos are better. He had temp 100.1 overnight. Viral panel negative for covid, rsv, influenza. Chest xray showing no acute process. Orthopedics has evaluated the patient and recommending to amie thornton colchicine and monitor overnight may require cortisone injection and aspiration of the left knee if not improving. 07/01/2023 Patient is seen in follow-up today maintained on CIWA protocol has not had much of Ativan although is continuing to report some acute withdrawals. Patient also seen and evaluated by orthopedics for left knee pain with concerns of acute gout and was started on colchicine along with indomethacin showing some improvement. Patient is continued on [place] for pain. Encouraged increase activity as tolerated. Patient is afebrile with no reported chest pain or shortness of breath. LFTs are trending down. Will follow-up with repeat labs Review of Systems Constitutional: Reports of fatigue denied any fever. Cardio vascular: denied any chest pain, palpitations Gastrointestinal: denied any nausea, vomiting, diarrhea Pulmonary: Denied any shortness of breath cough Neurologic denied any new focal deficits, reports continued left knee pain although less intense All inpatient medications were reviewed and appropriate changes in these medications as dictated in the interval history and assessment and plan. PHYSICAL EXAMINATION: GENERAL: The patient is alert and oriented x3,. Well developed, well nourished. HEENT: Pupils are round and equally reacting to light. EOMI. No scleral icterus. No conjunctival pallor. Normocephalic, atraumatic. No pharyngeal erythema. No thyromegaly. CARDIOVASCULAR: S1 and S2 present. No murmurs, rubs, or gallops. PULMONARY: Chest is clear to auscultation, no wheezing or crackles. ABDOMEN: Soft, nontender, nondistended, normoactive bowel sounds. No palpable organomegaly. MUSCULOSKELETAL: Left knee swollen, tender on palpation although improving, and limited mobility. EXTREMITIES: No cyanosis, clubbing, or pedal edema. NEUROLOGICAL: Gross neurological examination did not reveal any focal deficits. SKIN: No rashes. Assessment: Alcohol intoxication with concerns for acute alcohol withdrawal Chronic alcohol abuse History of seizures, most likely alcohol related Alcoholic hepatitis Left knee pain and hx of gout likely an acute gout flare up, there is left knee effusion also. History of hypertension GI prophylaxis DVT prophylaxis Full code Plan: Continue on IV fluids and ativan CIWA protocol Resume colchicine and norco, ortho evaluated the patient and patient is reporting some improvement in pain with no plans for cortisone injection and aspiration at this time. Patient is continued on indomethacin along with colchicine and [place] for pain. Patient will be provided with crutches for ambulation. Recommend PT/OT therapy evaluation Will provide resources for rehab although unsure if patient is truly wanting to quit at this time. We'll monitor overnight and have PT/ OT therapy evaluate of possible discharge planning in the next 24-48 hours The impression and plan of care has been dictated by Nadia Young, Nurse Practitioner as directed. Dr. Joseph MD I have performed a history and examination and MDM of this patient, discussed the same with the dictator, and agree with the dictator's assessment and plan as written ,documented as a scribe. Based on total visit time, I have performed more than 50% of the visit. Objective - Vital Signs Vital signs: Vital Signs Temp 97.4 F L 07/01/23 11:40 Pulse 81 07/01/23 11:40 Resp 16 07/01/23 11:40 BP 143/85 07/01/23 11:40 Pulse Ox 98 07/01/23 11:40 FiO2 Intake & Output 06/30/23 07/01/23 07/01/23 18:59 06:59 18:59 Intake Total 1200 Balance 1200 Intake: Oral 1200 Other: Voiding Method Toilet Urinal # Voids 3 - Labs CBC & Chem 7: 06/29/23 05:58 06/30/23 05:27
[2023-07-02] MEDS: INDOMETHACIN 25 MG CAP PO SCH (08:35)
[2023-07-02] MEDS: PANTOPRAZOLE 40 MG/10 ML VIAL IVP SCH (08:35)
[2023-07-02] MEDS: COLCHICINE 0.6 MG EACH PO SCH (08:36)
[2023-07-02] MEDS: THIAMINE 100 MG TAB PO SCH (08:36)
[2023-07-02] MEDS: SODIUM CHLORIDE 0.9% 1,000 ML IV SCH (09:48)
[2023-07-02 14:19] VITALS: RESP 16
[2023-07-02 19:40] VITALS: BP 125/82; PULSE 105; TEMP 99
--- NOTE | 2023-07-03 21:28 | DS ---
DISCHARGE SUMMARY CHIEF COMPLAINT: Acute alcohol intoxication. HISTORY OF PRESENT ILLNESS AND PHYSICAL EXAMINATION: Details of this man's history and physical can be found in the initial workup. LABORATORY STUDIES: While he was in the hospital, he had laboratory studies, details of which can be found in the laboratory section of his chart. COURSE IN THE HOSPITAL: After admission, he was placed on bedrest and started on intravenous fluids and CIWA protocol. Over the next several days, he improved and attained mild DTs. He was stable enough, and it was felt that he could leave the hospital on the . FINAL DIAGNOSES: 1. Acute alcohol intoxication. 2. Chronic alcoholism. 3. Hypertension. OPERATIONS: None. CONSULTATIONS: None. CONDITION: He is improved. MMODL / IJN: [id number] /
== END 2023-07-02 19:25 | disposition left against medical advice (07) | DRG 770 ==
LOC: EC 22:09 → MERGE 06-28 01:03 → 5NMEDONC 06-28 01:03
PROVIDERS: ADMIT Family Medicine; ATTEND Family Medicine
PROC: HZ2ZZZZ Detoxification Services for Substance Abuse Treatment (ICD-10-PCS; principal; 2023-06-28)
DX: F10.231 Alcohol dependence with withdrawal delirium (principal); K70.10 Alcoholic hepatitis without ascites; F10.229 Alcohol dependence with intoxication, unspecified; I10 Essential (primary) hypertension; G40.509 Epileptic seizures related to external causes, not intractable, without status epilepticus; Y90.8 Blood alcohol level of 240 mg/100 ml or more; R26.89 Other abnormalities of gait and mobility; M10.9 Gout, unspecified; M65.9 Synovitis and tenosynovitis, unspecified; Z20.822 Contact with and (suspected) exposure to COVID-19; M65.862 Other synovitis and tenosynovitis, left lower leg; R19.7 Diarrhea, unspecified
CPT/HCPCS: 36415; 71046; 76705; 80048; 80053; 80306; 80320; 81003; 82150; 83690; 83735; 84100; 84550; 85025; 85610; 85652; 86140; 87636; 96360; 96372; 99285

== ENCOUNTER 2023-07-13 22:31 | Inpatient (IN) | payer OTHER ==
[2023-07-13] MEDS ORDERED: SODIUM CHLORIDE 0.9% 500 ML 500 ML IV STA (23:12)
--- NOTE | 2023-07-13 23:34 | ED ---
Seizure HPI - General Chief Complaint: Seizure Stated Complaint: SEIZURE Time Seen by Provider: 07/13/23 22:59 Source: EMS Mode of arrival: EMS Limitations: altered mental status - History of Present Illness Initial Comments: This patient is 42-year-old man brought to have evaluation after he reportedly had seizure. Patient does have history of previous seizures. On arrival patient appears very intoxicated not able to give much additional history. He denies pains other than some headache MD Complaint: seizure -: hour(s) Description of Episode: loss of consciousness, tonic-clonic movement Witnessed: yes - by bystander Seizure History: known seizure disorder Place: home Possible Precipitating Event: none Treatments Prior to Arrival: none - Related Data Home Medications Medication Instructions Recorded Confirmed HYDROcodone/APAP 5-325MG [[place] 1 tab PO Q6HR PRN 06/28/23 07/18/23 5-325] Indomethacin [Indocin] 50 mg PO TID 06/28/23 07/18/23 Previous Rx's Medication Instructions Recorded Folic Acid 1 mg PO DAILY #30 tab 03/15/23 Pantoprazole [Protonix] 40 mg PO DAILY #30 tab 03/15/23 Thiamine [Vitamin B-1] 100 mg PO BID #60 tab 03/22/23 Acamprosate Calcium [Campral] 666 mg PO TID #30 tab 03/27/23 Losartan [Cozaar] 100 mg PO DAILY #14 tab 03/27/23 cloNIDine HCL [Catapres] 0.1 mg PO TID #30 tab 03/27/23 hydrALAZINE HCL [Apresoline] 50 mg PO QID #30 tab 04/08/23 Allergies Allergy/AdvReac Type Severity Reaction Status Date / Time No Known Allergies Allergy Verified 07/18/23 07:05 Review of Systems ROS Statement: Those systems with pertinent positive or pertinent negative responses have been documented in the HPI. ROS Other: All systems not noted in ROS Statement are negative. Constitutional: Reports: weakness. Denies: fever, chills Respiratory: Denies: cough, dyspnea Cardiovascular: Denies: chest pain, palpitations, edema Gastrointestinal: Reports: nausea. Denies: abdominal pain, vomiting, diarrhea Genitourinary: Denies: dysuria, hematuria Musculoskeletal: Denies: back pain Skin: Denies: rash Neurological: Reports: headache. Denies: weakness, numbness Past Medical History Past Medical History: Hypertension, Pneumonia, Seizure Disorder Additional Past Medical History / Comment(s): ETOH History of Any Multi-Drug Resistant Organisms: None Reported Past Surgical History: Joint Replacement, Orthopedic Surgery Additional Past Surgical History / Comment(s): Right knee surgery, left leg i ncision and drainage for spider bite Past Anesthesia/Blood Transfusion Reactions: No Reported Reaction Past Psychological History: Anxiety, No Psychological Hx Reported Smoking Status: Former smoker, Never smoker Past Alcohol Use History: Abuse, Heavy, None Reported - Past Family History Sister(s) Family Medical History: Diabetes Mellitus Mother Family Medical History: Diabetes Mellitus Additional Family Medical History / Comment(s): from sudhakar johnsons syndrome Father Family Medical History: Diabetes Mellitus, Myocardial Infarction (CO) Additional Family Medical History / Comment(s): from dm complic ations General Exam General appearance: alert, in no apparent distress, appears intoxicated Head exam: Present: normocephalic, other (Occipital contusion with marked tenderness) Eye exam: Present: normal appearance, PERRL, EOMI, nystagmus. Absent: scleral icterus, conjunctival injection ENT exam: Present: mucous membranes dry Neck exam: Present: normal inspection, full ROM. Absent: tenderness, meningismus Respiratory exam: Present: normal lung sounds bilaterally. Absent: respiratory distress, wheezes, rales, rhonchi, stridor Cardiovascular Exam: Present: regular rate, normal rhythm, normal heart sounds. Absent: systolic murmur, diastolic murmur, rubs, gallop GI/Abdominal exam: Present: soft. Absent: distended, tenderness, guarding, rebound, rigid, mass Extremities exam: Present: normal inspection, normal capillary refill. Absent: pedal edema, calf tenderness Back exam: Present: normal inspection. Absent: CVA tenderness (R), CVA tenderness (L), vertebral tenderness Neurological exam: Present: alert, oriented X3, CN II-XII intact. Absent: motor sensory deficit Skin exam: Present: warm, dry, intact, normal color. Absent: rash Course Vital Signs 07/13/23 07/14/23 07/14/23 23:07 00:09 03:04 Temperature 97.4 F L Pulse Rate 96 94 98 Respiratory 18 18 18 Rate Blood Pressure 111/74 112/82 106/62 O2 Sat by Pulse 100 99 95 Oximetry Medical Decision Making - Medical Decision Making The patient had CT of the brain that I interpreted as negative for acute bony injury or intracranial hemorrhage. Was pt. sent in by a medical professional or institution (DEVIN Woo, DETENTION WORKER, urgent care, hospital, or half-way...) When possible be specific @ -[No] Did you speak to anyone other than the patient for history (EMS, parent, family, police, friend...)? What history was obtained from this source @ -[EMS personnel did give history Did you review nursing and triage notes (agree or disagree)? Why? @ -[I reviewed and agree with nursing and triage notes] Were old charts reviewed (outside hosp., previous admission, EMS record, old EKG, old radiological studies, urgent care reports/EKG's, half-way records)? Report findings @ -[Yes old charts were reviewed] Differential Diagnosis (chest pain, altered mental status, abdominal pain women, abdominal pain men, vaginal bleeding, weakness, fever, dyspnea, syncope, headache, dizziness, GI bleed, back pain, seizure, CVA, palpatations, mental health, musculoskeletal)? @ -[Differential Seizure: Recurrent seizure disorder, febrile seizure, alcohol withdrawal, stimulants, meningitis, encephalitis, intercranial hemorrhage, intracranial tumor, stroke, eclampsia, thyrotoxicosis, hypocalcemia, hyponatremia, hypernatremia, hypomagnesemia, psychogenic, this is not meant to be an all-inclusive list. EKG interpreted by me (3pts min.). @ -[As above] X-rays interpreted by me (1pt min.). @ -[None done] CT interpreted by me (1pt min.). @ -[I interpreted as above U/S interpreted by me (1pt. min.). @ -[None done] What testing was considered but not performed or refused? (CT, X-rays, U/S, labs)? Why? @ -[None] What meds were considered but not given or refused? Why? @ -[None] Did you discuss the management of the patient with other professionals (professionals i.e. DEVIN Woo, DETENTION WORKER, lab, RT, psych nurse, high school social studies teacher, senior project controls specialist, teacher, probation and parole officer, trimming caser)? Give summary @ -[Case discussed with admitting physician Was smoking cessation discussed for >3mins.? @ -[No] Was critical care preformed (if so, how long)? @ -[No] Were there social determinants of health that impacted care today? How? (Homelessness, low income, unemployed, alcoholism, drug addiction, transportation, low edu. Level, literacy, decrease access to med. care, assisted, rehab)? @ -[Alcoholism Was there de-escalation of care discussed even if they declined (Discuss DNR or withdrawal of care, Hospice)? DNR status @ -[No] What co-morbidities impacted this encounter? (DM, HTN, Smoking, COPD, CAD, Cancer, CVA, ARF, Chemo, Hep., AIDS, mental health diagnosis, sleep apnea, morbid obesity)? @ -[Seizure disorder Was patient admitted / discharged? Hospital course, mention meds given and route, prescriptions, significant lab abnormalities, going to OR and other pertinent info. @ -[Patient is 42-year-old man with history of previous seizures. Patient very intoxicated with high alcohol level. Does appear to be developing impending DTs. Will admit to have further treatment, including benzodiazepine protocol. The patient did become more alert and did appear at baseline though intoxicated Undiagnosed new problem with uncertain prognosis? @ -[No] Drug Therapy requiring intensive monitoring for toxicity (Heparin, Nitro, Insulin, Cardizem)? @ -[No] Were any procedures done? @ -[No] Diagnosis/symptom? @ -[Acute generalized tonic-clonic seizure Acute alcohol intoxication with impending DTs Acute, or Chronic, or Acute on Chronic? @ -[ Uncomplicated (without systemic symptoms) or Complicated (systemic symptoms)? @ -[Complicated with impending DTs Side effects of treatment? @ -[No] Exacerbation, Progression, or Severe Exacerbation? @ -[No] Poses a threat to life or bodily function? How? (Chest pain, [place], [place], pneumonia, PE, COPD, DKA, ARF, appy, cholecystitis, CVA, Diverticulitis, Homicidal, Suicidal, threat to staff... and all critical care pts) @ -[Yes untreated alcohol withdrawal has significant associated morbidity and mortality - Lab Data Result diagrams: 07/14/23 00:09 07/14/23 00:09 Lab Results 07/14/23 07/14/23 Range/Units 00:09 00:09 WBC 4.6 (3.8-10.6) k/uL RBC 4.15 L (4.30-5.90) m/uL Hgb 12.9 L (13.0-17.5) gm/dL Hct 38.6 L (39.0-53.0) % MCV 93.0 (80.0-100.0) fL MCH 31.0 (25.0-35.0) pg MCHC 33.3 (31.0-37.0) g/dL RDW 15.2 (11.5-15.5) % Plt Count 260 D (150-450) k/uL MPV 8.7 Neutrophils % 35 % Lymphocytes % 54 % Monocytes % 4 % Eosinophils % 2 % Basophils % 1 % Neutrophils # 1.6 (1.3-7.7) k/uL Lymphocytes # 2.5 (1.0-4.8) k/uL Monocytes # 0.2 (0-1.0) k/uL Eosinophils # 0.1 (0-0.7) k/uL Basophils # 0.0 (0-0.2) k/uL Sodium 135 L (137-145) mmol/L Potassium 4.2 (3.5-5.1) mmol/L Chloride 95 L (98-107) mmol/L Carbon Dioxide 21 L (22-30) mmol/L Anion Gap 19 mmol/L BUN 8 L (9-20) mg/dL Creatinine 0.75 (0.66-1.25) mg/dL Est GFR (CKD-EPI)AfAm >90 (>60 ml/min/1.73 sqM) Est GFR (CKD-EPI)NonAf >90 (>60 ml/min/1.73 sqM) Glucose 88 (74-99) mg/dL Calcium 9.0 (8.4-10.2) mg/dL Magnesium 1.8 (1.6-2.3) mg/dL Total Bilirubin 0.9 (0.2-1.3) mg/dL AST 176 H (17-59) U/L ALT 109 H (4-49) U/L Alkaline Phosphatase 156 H (38-126) U/L Total Protein 9.4 H (6.3-8.2) g/dL Albumin 4.5 (3.5-5.0) g/dL Serum Alcohol 431 H* mg/dL - EKG Data -: EKG Interpreted by Me EKG shows normal: sinus rhythm (Rate 89 bpm), axis (Normal), intervals (Normal), QRS complexes (Normal), ST-T waves (Normal) Rate: normal Disposition Clinical Impression: Alcoholic intoxication, Generalized seizure Disposition: ADMITTED IP TO THIS HOSP Condition: Fair Is patient prescribed a controlled substance at d/c from ED?: No
[2023-07-14 00:31] LABS: ALT 109 U/L (4-49); AST 176 U/L (17-59); Albumin 4.5 g/dL (3.5-5.0); Alkaline Phosphatase 156 U/L (38-126); Anion Gap 19 mmol/L; Blood Urea Nitrogen 8 mg/dL (9-20); Carbon Dioxide 21 mmol/L (22-30); Chloride 95 mmol/L (98-107); Glucose 88 mg/dL (74-99); Magnesium 1.8 mg/dL (1.6-2.3); Potassium 4.2 mmol/L (3.5-5.1); Sodium 135 mmol/L (137-145); Total Bilirubin 0.9 mg/dL (0.2-1.3); Total Protein 9.4 g/dL (6.3-8.2)
[2023-07-14 00:34] LABS: Basophils % (A) 1 %; Eosinophils # (A) 0.1 k/uL (0-0.7); Eosinophils % (A) 2 %; HCT 38.6 % (39.0-53.0); HGB 12.9 gm/dL (13.0-17.5); Lymphocytes # (A) 2.5 k/uL (1.0-4.8); Lymphocytes % (A) 54 %; MCHC 33.3 g/dL (31.0-37.0); Mean Platelet Volume 8.7; Monocytes # (A) 0.2 k/uL (0-1.0); Monocytes % (A) 4 %; Neutrophils # (A) 1.6 k/uL (1.3-7.7); Neutrophils % (A) 35 %; RBC 4.15 m/uL (4.30-5.90); RDW 15.2 % (11.5-15.5); WBC 4.6 k/uL (3.8-10.6)
[2023-07-14 00:36] LABS: African American GFR (CKD) >90 (>60 ml/min/1.73 sqM); Non-African American GFR(CKD) >90 (>60 ml/min/1.73 sqM)
[2023-07-14 00:55] LABS: Platelet Count 260 k/uL (150-450)
[2023-07-14 01:01] LABS: Alcohol 431 mg/dL
--- NOTE | 2023-07-14 01:12 | CT ---
EXAM: CT Head Without Intravenous Contrast CLINICAL HISTORY: ITS.REASON CT Reason: seizure activity. fall injury TECHNIQUE: Axial computed tomography images of the head/brain without intravenous contrast. CTDI is 49.2 mGy and DLP is 1130.4 mGy-cm. This CT exam was performed using one or more of the following dose reduction techniques: automated exposure control, adjustment of the mA and/or kV according to patient size, and/or use of iterative reconstruction technique. COMPARISON: No relevant prior studies available. FINDINGS: Brain: No hemorrhage or mass effect. Ventricles: No hydrocephalus. Bones/joints: Unremarkable. Soft tissues: Unremarkable. Sinuses: No air fluid level. Mastoid air cells: Clear. IMPRESSION: No acute hemorrhage, hydrocephalus, or mass effect.
[2023-07-14] MEDS ORDERED: ONDANSETRON 4 MG/2 ML VIAL IVP PRN (02:17)
[2023-07-14] MEDS ORDERED: NALOXONE 0.4 MG/ML 1 ML VIAL IV PRN (02:17)
[2023-07-14] MEDS ORDERED: LORazepam 2 MG/ML INJ IV PRN ×3 (02:19)
[2023-07-14] MEDS: SODIUM CHLORIDE 0.9% 1,000 ML IV SCH ×2 (03:08→22:04)
[2023-07-14] MEDS: LORazepam 1 MG TAB PO PRN ×2 (03:54→22:08)
[2023-07-14] MEDS: LOSARTAN 50 MG TAB PO SCH (08:42)
[2023-07-14] MEDS: FOLIC ACID 1 MG TAB PO SCH (08:43)
[2023-07-14] MEDS: hydrALAZINE HCL 50 MG TAB PO SCH ×4 (08:43→22:08)
[2023-07-14] MEDS: FAMOTIDINE 20 MG TAB PO SCH ×2 (08:43→22:08)
[2023-07-14] MEDS: PANTOPRAZOLE 40 MG TABLET PO SCH (08:43)
[2023-07-14] MEDS: THIAMINE 100 MG TAB PO SCH ×2 (08:43→22:08)
[2023-07-14 16:41] LABS: Glucose,Whole Blood 110 mg/dL (70-110)
[2023-07-15] MEDS: SODIUM CHLORIDE 0.9% 1,000 ML IV SCH ×2 (02:16→10:19)
[2023-07-15] MEDS: FOLIC ACID 1 MG TAB PO SCH (10:19)
[2023-07-15] MEDS: LOSARTAN 50 MG TAB PO SCH (10:19)
[2023-07-15] MEDS: PANTOPRAZOLE 40 MG TABLET PO SCH (10:19)
[2023-07-15] MEDS: THIAMINE 100 MG TAB PO SCH (10:19)
[2023-07-15] MEDS: hydrALAZINE HCL 50 MG TAB PO SCH ×2 (10:19→13:12)
[2023-07-15] MEDS: FAMOTIDINE 20 MG TAB PO SCH (10:19)
[2023-07-15 15:15] VITALS: BP 119/81; PULSE 84; RESP 22; TEMP 98
--- NOTE | 2023-07-16 18:26 | HP ---
HISTORY AND PHYSICAL CHIEF COMPLAINT: Acute alcohol intoxication. HISTORY OF PRESENT ILLNESS: This is another admission for this 42-year-old alcoholic male. He has been in and out of the ER lately several times. He comes in highly intoxicated and frequently winds up with alcohol seizure. He also has a history of hypertension. REVIEW OF SYSTEMS: Not obtainable at this time. Past medical history, family history, and personal and social histories are similarly unobtainable due to his intoxication. PHYSICAL EXAMINATION: VITAL SIGNS: Blood pressure is 156/105 with respirations of 38, and pulse of 100. GENERAL: He appeared to be slender, well developed, well nourished, and intoxicated. HEAD, EARS, EYES, NOSE, MOUTH, AND THROAT: Normal. Pupils are equal and round. NECK: Supple. CHEST: Clear. CARDIAC: Normal. ABDOMEN: Soft and flat. EXTREMITIES: Normal. NEUROLOGIC: He is lethargic and intoxicated. DIAGNOSES: He is admitted to the hospital with diagnoses: 1. Acute alcohol intoxication. 2. History of alcoholic seizures. 3. Hypertension. 4. Chronic alcoholism. PLAN: 1. Bedrest. 2. IV fluids. 3. CIWA protocol. 4. Seizure precautions. MMODL / IJN: [id number] /
--- NOTE | 2023-07-16 20:32 | DS ---
DISCHARGE SUMMARY CHIEF COMPLAINT: Acute alcohol intoxication, DTs, and seizures. HISTORY OF PRESENT ILLNESS AND PHYSICAL EXAMINATION: Details of this man's history and physical can be found in the initial workup. LABORATORY STUDIES: While he was in the hospital, he had laboratory studies, details of which can be found in the laboratory section of his chart. COURSE IN THE HOSPITAL: After admission, he was placed on bedrest, started on intravenous fluids and the CIWA protocol. He had no seizures. By the next day, he was stable, doing well. It was felt that he could be discharged once again. FINAL DIAGNOSES: 1. Acute alcohol intoxication. 2. Chronic alcoholism. 3. Hypertension. 4. Alcoholic seizure disorder. OPERATIONS: None. CONSULTATION: None, he is improved. MMODL / IJN: [id number] /
== END 2023-07-15 16:06 | disposition home or self-care (01) | DRG 775 ==
LOC: EC 22:31 → 4SSUR 07-14 02:18
PROVIDERS: ADMIT Family Medicine; ATTEND Family Medicine
DX: F10.231 Alcohol dependence with withdrawal delirium (principal); F10.229 Alcohol dependence with intoxication, unspecified; Y90.8 Blood alcohol level of 240 mg/100 ml or more; I10 Essential (primary) hypertension; G40.909 Epilepsy, unspecified, not intractable, without status epilepticus; Z82.49 Family history of ischemic heart disease and other diseases of the circulatory system; Z83.3 Family history of diabetes mellitus; Z87.891 Personal history of nicotine dependence
CPT/HCPCS: 36415; 70450; 80053; 80320; 83735; 85025; 93005; 94760; 99285

== ENCOUNTER 2023-07-18 02:54 | Emergency (ER) | payer OTHER ==
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
[2023-07-18 03:04] VITALS: RESP 18; TEMP 97.6
[2023-07-18] MEDS ORDERED: SODIUM CHLORIDE 0.9% 1,000 ML IV ONE (03:46)
[2023-07-18 10:54] VITALS: BP 121/85; PULSE 90
== END 2023-07-18 08:20 | disposition home or self-care (01) ==
LOC: EC 02:54
DX: F10.129 Alcohol abuse with intoxication, unspecified (principal); I10 Essential (primary) hypertension; Z86.59 Personal history of other mental and behavioral disorders
CPT/HCPCS: 96360; 99285

== ENCOUNTER 2023-07-20 22:18 | Emergency (ER) | payer OTHER ==
[2023-07-20 22:32] VITALS: BP 131/89; PULSE 82; RESP 18; TEMP 97.6
[2023-07-21] MEDS ORDERED: KETOROLAC 15 MG/ML 1 ML VIAL IM STA (02:26)
--- NOTE | 2023-07-21 02:28 | ED ---
General Adult HPI - General Chief complaint: Fall Stated complaint: Fall Time Seen by Provider: 07/21/23 02:07 Source: patient Mode of arrival: wheelchair Limitations: no limitations - History of Present Illness Initial comments: 42-year-old male well known to our ER presenting with chief complaint of "I have gout". He is complaining of left knee pain. He states that it feels identical to previous gout flareups. He admits to pain with weightbearing. No injury or trauma. States he is having difficulty walking because of pain. No fever, chills, nausea, vomiting, numbness, tingling. No lower leg swelling, chest pain, difficulty breathing. - Related Data Home Medications Medication Instructions Recorded Confirmed HYDROcodone/APAP 5-325MG [[employer] 1 tab PO Q6HR PRN 06/28/23 07/18/23 5-325] Indomethacin [Indocin] 50 mg PO TID 06/28/23 07/18/23 Previous Rx's Medication Instructions Recorded Folic Acid 1 mg PO DAILY #30 tab 03/15/23 Pantoprazole [Protonix] 40 mg PO DAILY #30 tab 03/15/23 Thiamine [Vitamin B-1] 100 mg PO BID #60 tab 03/22/23 Acamprosate Calcium [Campral] 666 mg PO TID #30 tab 03/27/23 Losartan [Cozaar] 100 mg PO DAILY #14 tab 03/27/23 cloNIDine HCL [Catapres] 0.1 mg PO TID #30 tab 03/27/23 hydrALAZINE HCL [Apresoline] 50 mg PO QID #30 tab 04/08/23 Indomethacin [Indocin] 50 mg PO TID PRN #21 cap 07/21/23 Allergies Allergy/AdvReac Type Severity Reaction Status Date / Time No Known Allergies Allergy Verified 07/20/23 22:31 Review of Systems ROS Statement: Those systems with pertinent positive or pertinent negative responses have been documented in the HPI. ROS Other: All systems not noted in ROS Statement are negative. Past Medical History Past Medical History: Hypertension, Pneumonia, Seizure Disorder Additional Past Medical History / Comment(s): ETOH History of Any Multi-Drug Resistant Organisms: None Reported Past Surgical History: Joint Replacement, Orthopedic Surgery Additional Past Surgical History / Comment(s): Right knee surgery, left leg incision and drainage for spider bite Past Anesthesia/Blood Transfusion Reactions: No Reported Reaction Past Psychological History: Anxiety, No Psychological Hx Reported Smoking Status: Current every day smoker Past Alcohol Use History: Abuse, Daily, Heavy Past Drug Use History: None Reported - Past Family History Sister(s) Family Medical History: Diabetes Mellitus Mother Family Medical History: Diabetes Mellitus Additional Family Medical History / Comment(s): from sudhakar johnsons syndrome Father Family Medical History: Diabetes Mellitus, Myocardial Infarction ([place]) Additional Family Medical History / Comment(s): from dm complications General Exam Limitations: no limitations General appearance: alert, in no apparent distress Head exam: Present: atraumatic, normocephalic, normal inspection Eye exam: Present: normal appearance, EOMI Neck exam: Present: normal inspection, full ROM Respiratory exam: Absent: respiratory distress Left Knee exam: Present: normal inspection, tenderness. Absent: full ROM, swelling, deformity, erythema Neurovascular tendon exam: Present: no vascular compromise Neurological exam: Present: alert, oriented X3 Psychiatric exam: Present: normal affect, normal mood Skin exam: Present: warm, dry, intact, normal color. Absent: rash Course Vital Signs 07/20/23 22:27 Temperature 97.6 F Pulse Rate 82 Respiratory 18 Rate Blood Pressure 131/89 O2 Sat by Pulse 98 Oximetry Medical Decision Making - Medical Decision Making Was pt. sent in by a medical professional or institution (DEVIN Woo, TRAMPOLINE TEAM COACH, urgent care, hospital, or care home...) When possible be specific @ -No Did you speak to anyone other than the patient for history (EMS, parent, family, police, friend...)? What history was obtained from this source @ -No Did you review nursing and triage notes (agree or disagree)? Why? @ -I reviewed and agree with nursing and triage notes Were old charts reviewed (outside hosp., previous admission, EMS record, old EKG, old radiological studies, urgent care reports/EKG's, care home records)? Report findings @ -No old charts were reviewed Differential Diagnosis (chest pain, altered mental status, abdominal pain women, abdominal pain men, vaginal bleeding, weakness, fever, dyspnea, syncope, headache, dizziness, GI bleed, back pain, seizure, CVA, palpatations, mental health, musculoskeletal)? @ -Differential Musculoskeletal Muscular strain, contusion, ligament sprain, fracture, arthritis, septic arthritis, bursitis, cellulitis, muscle spasm, nerve compression, DVT, arterial occlusion, herpes zoster, electrolyte abnormality, tumor.... This is not meant to be in all inclusive list EKG interpreted by me (3pts min.). @ -As above X-rays interpreted by me (1pt min.). @ -None done CT interpreted by me (1pt min.). @ -None done U/S interpreted by me (1pt. min.). @ -None done What testing was considered but not performed or refused? (CT, X-rays, U/S, labs)? Why? @ -None What meds were considered but not given or refused? Why? @ -None Did you discuss the management of the patient with other professionals (professionals i.e. , PA, TRAMPOLINE TEAM COACH, lab, RT, psych nurse, social scientist, program coordinator, teacher, chief supply chain officer, keycase assembler)? Give summary @ -No Was smoking cessation discussed for >3mins.? @ -No Was critical care preformed (if so, how long)? @ -No Were there social determinants of health that impacted care today? How? (Homelessness, low income, unemployed, alcoholism, drug addiction, transportation, low edu. Level, literacy, decrease access to med. care, custodial, rehab)? @ -No Was there de-escalation of care discussed even if they declined (Discuss DNR or withdrawal of care, Hospice)? DNR status @ -No What co-morbidities impacted this encounter? (DM, HTN, Smoking, COPD, CAD, Cancer, CVA, ARF, Chemo, Hep., AIDS, mental health diagnosis, sleep apnea, morbid obesity)? @ -None Was patient admitted / discharged? Hospital course, mention meds given and route, prescriptions, significant lab abnormalities, going to OR and other pertinent info. @ -42-year-old male presenting with chief complaint of left knee pain. History of gout, states that this feels identical. No injury or trauma. Physical exam is conducted. Patient is treated for gout with indomethacin. Follow-up with PCP. Report back to ER with any new or worsening symptoms. Discussed return parameters and answered all questions. Patient conveyed verbal understanding and agreed to the plan. I discussed this case in detail with my attending Dr. Choi Undiagnosed new problem with uncertain prognosis? @ -No Drug Therapy requiring intensive monitoring for toxicity (Heparin, Nitro, Insulin, Cardizem)? @ -No Were any procedures done? @ -No Diagnosis/symptom? @ -Gout Acute, or Chronic, or Acute on Chronic? @ -Acute Uncomplicated (without systemic symptoms) or Complicated (systemic symptoms)? @ -Uncomplicated Side effects of treatment? @ -No Exacerbation, Progression, or Severe Exacerbation? @ -No Poses a threat to life or bodily function? How? (Chest pain, [place], [place], pneumonia, PE, COPD, DKA, ARF, appy, cholecystitis, CVA, Diverticulitis, Homicidal, Suicidal, threat to staff... and all critical care pts) @ -No Disposition Clinical Impression: Gout Disposition: HOME SELF-CARE Condition: Good Instructions (If sedation given, give patient instructions): Low Purine Diet (ED), Gout (ED) Additional Instructions: Follow-up with PCP. Report back to ER with any new or worsening symptoms. Prescriptions: Indomethacin [Indocin] 50 mg PO TID PRN #21 cap PRN Reason: Pain Is patient prescribed a controlled substance at d/c from ED?: No Referrals: Luis Cho MD [Primary Care Provider] - 1-2 days Time of Disposition: 02:27
== END 2023-07-21 02:39 | disposition home or self-care (01) ==
LOC: EC 22:18
DX: M10.9 Gout, unspecified (principal); I10 Essential (primary) hypertension; F17.200 Nicotine dependence, unspecified, uncomplicated; Z86.59 Personal history of other mental and behavioral disorders
CPT/HCPCS: 99283; 96372; J1885

== ENCOUNTER 2023-08-19 22:51 | Inpatient (IN) | payer OTHER ==
[2023-08-19] MEDS ORDERED: SODIUM CHLORIDE 0.9% 500 ML 500 ML IV STA (23:06)
[2023-08-19] MEDS ORDERED: LORazepam 2 MG/ML INJ IV STA (23:06)
[2023-08-19] MEDS ORDERED: SODIUM CHLORIDE 0.9% 1,000 ML IV STA ×2 (23:06)
[2023-08-19] MEDS ORDERED: MORPHINE SULFATE 4 MG/ML SYRINGE IVP STA (23:07)
[2023-08-19] MEDS ORDERED: ONDANSETRON 4 MG/2 ML VIAL IVP STA (23:07)
--- NOTE | 2023-08-19 23:09 | ED ---
Abdominal Pain HPI - General Chief Complaint: Alcohol Stated Complaint: etoh Time Seen by Provider: 08/19/23 22:52 Source: patient, EMS, RN notes reviewed, old records reviewed Mode of arrival: EMS Limitations: no limitations - History of Present Illness Initial Comments: This is a 42-year-old male the ER today. Patient presents today for evaluation regards to nausea vomiting severe. Persistent nausea vomiting and rales in the ER with abdominal pain. Patient does have does admit to drinking a significant amount of alcohol last night. Patient has no fevers, no other complaints no history of pancreatitis. MD Complaint: abdominal pain -: hour(s) Location: periumbilical, epigastric Radiation: epigastric Migration to: epigastric Severity: severe Severity scale (1-10): 8 Quality: stabbing, aching Consistency: constant Improves With: nothing Worsens With: nothing Associated Symptoms: nausea, vomiting Treatments Prior to Arrival: other (0) - Related Data Previous Rx's Medication Instructions Recorded Magnesium Oxide [Mag-Ox] 400 mg PO BID #20 tab 08/23/23 Thiamine [Vitamin B-1] 100 mg PO DAILY #20 tab 08/23/23 cloNIDine HCL [Catapres] 0.2 mg PO TID #30 tab 08/23/23 Allergies Allergy/AdvReac Type Severity Reaction Status Date / Time No Known Allergies Allergy Verified 08/20/23 09:55 Review of Systems ROS Statement: Those systems with pertinent positive or pertinent negative responses have been documented in the HPI. ROS Other: All systems not noted in ROS Statement are negative. Past Medical History Past Medical History: Hypertension, Pneumonia, Seizure Disorder Additional Past Medical History / Comment(s): ETOH History of Any Multi-Drug Resistant Organisms: None Reported Past Surgical History: Joint Replacement, Orthopedic Surgery Additional Past Surgical History / Comment(s): Right knee surgery, left leg incision and drainage for spider bite Past Anesthesia/Blood Transfusion Reactions: No Reported Reaction Past Psychological History: Anxiety, No Psychological Hx Reported Smoking Status: Current every day smoker Past Alcohol Use History: Abuse, Daily, Heavy Past Drug Use History: None Reported - Past Family History Sister(s) Family Medical History: Diabetes Mellitus Mother Family Medical History: Diabetes Mellitus Additional Family Medical History / Comment(s): from sudhakar johnsons syndrome Father Family Medical History: Diabetes Mellitus, Myocardial Infarction ([place]) Additional Family Medical History / Comment(s): from dm complications General Exam General appearance: alert, in no apparent distress Head exam: Present: atraumatic, normocephalic, normal inspection Eye exam: Present: normal appearance, PERRL, EOMI. Absent: scleral icterus, conjunctival injection, periorbital swelling ENT exam: Present: normal exam, mucous membranes moist Neck exam: Present: normal inspection. Absent: tenderness, meningismus, lymphadenopathy Respiratory exam: Present: normal lung sounds bilaterally. Absent: respiratory distress, wheezes, rales, rhonchi, stridor Cardiovascular Exam: Present: regular rate, normal rhythm, normal heart sounds. Absent: systolic murmur, diastolic murmur, rubs, gallop, clicks GI/Abdominal exam: Present: soft, normal bowel sounds. Absent: distended, tenderness, guarding, rebound, rigid Extremities exam: Present: normal inspection, full ROM, normal capillary refill. Absent: tenderness, pedal edema, joint swelling, calf tenderness Back exam: Present: normal inspection Neurological exam: Present: alert, oriented X3, CN II-XII intact Psychiatric exam: Present: normal affect, normal mood Skin exam: Present: warm, dry, intact, normal color. Absent: rash Course Vital Signs 08/19/23 08/19/23 08/20/23 22:52 23:04 01:00 Temperature 97.8 F Pulse Rate 66 80 114 H Respiratory 20 18 20 Rate Blood Pressure 147/97 135/87 137/94 O2 Sat by Pulse 98 97 97 Oximetry 08/20/23 02:30 Temperature Pulse Rate 104 H Respiratory 18 Rate Blood Pressure 121/84 O2 Sat by Pulse 96 Oximetry - Reevaluation(s) Reevaluation #1: 08/19/23 23:48 Medical records reviewed Reevaluation #2: 08/20/23 01:43 Patient nausea has stopped vomiting has stopped but still feels unwell Reevaluation #3: 08/20/23 01:43 Patient informed of results questions answered Reevaluation #4: 08/19/23 23:48 Was pt. sent in by a medical professional or institution (, PA, GATE MORTISER OPERATOR, urgent care, hospital, or half-way...) When possible be specific @ -no Did you speak to anyone other than the patient for history (EMS, parent, family, police, friend...)? What history was obtained from this source @ -no Did you review nursing and triage notes (agree or disagree)? Why? @ -agree Are old charts reviewed (outside hosp., previous admission, EMS record, old EKG, old radiological studies, urgent care reports/EKG's, half-way records)? Report findings @ -yes Differential Diagnosis (chest pain, altered mental status, abdominal pain women, abdominal pain men, vaginal bleeding, weakness, fever, dyspnea, syncope, headache, dizziness, GI bleed, back pain, seizure, CVA, palpatations, mental health, musculoskeletal)? @ -prior EKG interpreted by me (3pts min.). @ -no X-rays interpreted by me (1pt min.). @ -no CT interpreted by me (1pt min.). @ -no U/S interpreted by me (1pt. min.). @ -no What testing was considered but not performed or refused? (CT, X-rays, U/S, labs)? Why? @ -none What meds were considered but not given or refused? Why? @ -none Did you discuss the management of the patient with other professionals (mitch pop i.e. , PA, GATE MORTISER OPERATOR, lab, RT, psych nurse, social work lecturer, web content executive, teacher, traffic division commanding officer, mental health case manager)? Give summary @ -no Was smoking cessation discussed for >3mins.? @ -no Was critical care preformed (if so, how long)? @ -no Were there social determinants of health that impacted care today? How? (Homelessness, low income, unemployed, alcoholism, drug addiction, transportation, low edu. Level, literacy, decrease access to med. care, group home, rehab)? @ -none Was there de-escalation of care discussed even if they declined (Discuss DNR or withdrawal of care, Hospice)? DNR status @ -no What co-morbidities impacted this encounter? (DM, HTN, Smoking, COPD, CAD, Cancer, CVA, ARF, Chemo, Hep., AIDS, mental health diagnosis, sleep apnea, morbid obesity)? @ -none Was patient admitted / discharged? Hospital course, mention meds given and route, prescriptions, significant lab abnormalities, going to OR and other pertinent info. @ - 42 male to the emergency department for evaluation persistent nausea vomiting after drinking, patient has significant alcohol ketoacidosis here in th e ER with persistent nausea vomiting and hypomagnesemia. Patient be admitted for resuscitation and electronically replacement. Admitted Undiagnosed new problem with uncertain prognosis? @ -no Drug Therapy requiring intensive monitoring for toxicity (Heparin, Nitro, Insulin, Cardizem)? @ -no Were any procedures done? @ -no Diagnosis/symptom? @ -Alcohol ketoacidosis nausea vomiting and low magnesium Acute, or Chronic, or Acute on Chronic? @ -Acute Uncomplicated (without systemic symptoms) or Complicated (systemic symptoms)? @ -Complicated Side effects of treatment? @ -no Exacerbation, Progression, or Severe Exacerbation? @ -exacerbation Poses a threat to life or bodily function? How? (Chest pain, [place], [place], pneumonia, PE, COPD, DKA, ARF, appy, cholecystitis, CVA, Diverticulitis, Homicidal, Suicidal, threat to staff... and all critical care pts) @ -yes significant comorbid conditions Reevaluation #5: 08/19/23 23:49 Differential Abdominal Pain Men: Appendicitis, cholecystitis, diverticulosis, ischemic bowel, pancreatitis, hepatitis, UTI, gastroenteritis, AAA, incarcerated hernia, bowel obstruction, constipation, inflammatory bowel, hepatitis, peptic ulcer disease, splenic infarction, perforated viscus, testicular torsion, this is not meant to be an all-inclusive list - Consultations Consultation #1: Spoke with Dr. Cho who agrees to admit this patient Medical Decision Making - Medical Decision Making 42 male to the emergency department for evaluation persistent nausea vomiting after drinking, patient has significant alcohol ketoacidosis here in the ER with persistent nausea vomiting and hypomagnesemia. Patient be admitted for resuscitation and electronically replacement. - Lab Data Result diagrams: 08/21/23 06:45 08/21/23 06:45 Lab Results 08/19/23 08/19/23 Range/Units 23:20 23:20 WBC 11.4 H (3.8-10.6) k/uL RBC 4.54 (4.30-5.90) m/uL Hgb 13.4 (13.0-17.5) gm/dL Hct 42.1 (39.0-53.0) % MCV 92.8 (80.0-100.0) fL MCH 29.6 (25.0-35.0) pg MCHC 31.9 (31.0-37.0) g/dL RDW 15.8 H (11.5-15.5) % Plt Count 117 L D (150-450) k/uL MPV 9.1 Neutrophils % 85 % Lymphocytes % 7 % Monocytes % 7 % Eosinophils % 0 % Basophils % 0 % Neutrophils # 9.7 H (1.3-7.7) k/uL Lymphocytes # 0.8 L (1.0-4.8) k/uL Monocytes # 0.8 (0-1.0) k/uL Eosinophils # 0.0 (0-0.7) k/uL Basophils # 0.0 (0-0.2) k/uL Sodium 140 (137-145) mmol/L Potassium 5.1 (3.5-5.1) mmol/L Chloride 95 L (98-107) mmol/L Carbon Dioxide 20 L (22-30) mmol/L Anion Gap 25 mmol/L BUN 21 H (9-20) mg/dL Creatinine 1.64 H (0.66-1.25) mg/dL Est GFR (CKD-EPI)AfAm 59 (>60 ml/min/1.73 sqM) Est GFR (CKD-EPI)NonAf 51 (>60 ml/min/1.73 sqM) Glucose 119 H (74-99) mg/dL Calcium 9.4 (8.4-10.2) mg/dL Phosphorus 2.9 (2.5-4.5) mg/dL Magnesium 1.2 L (1.6-2.3) mg/dL Total Bilirubin 2.6 H (0.2-1.3) mg/dL AST 346 H (17-59) U/L ALT 118 H (4-49) U/L Alkaline Phosphatase 133 H (38-126) U/L Total Protein 9.9 H (6.3-8.2) g/dL Albumin 4.9 (3.5-5.0) g/dL Lipase 129 (23-300) U/L Serum Alcohol <10 mg/dL Disposition Clinical Impression: Alcohol withdrawal syndrome, Hypomagnesemia, Alcoholic ketoacidosis, Nausea & vomiting, Dehydration Disposition: ADMITTED IP TO THIS HOSP Condition: Fair Is patient prescribed a controlled substance at d/c from ED?: No Time of Disposition: 01:40
[2023-08-19 23:51] LABS: ALT 118 U/L (4-49); AST 346 U/L (17-59); African American GFR (CKD) 59 (>60 ml/min/1.73 sqM); Albumin 4.9 g/dL (3.5-5.0); Alcohol <10 mg/dL; Alkaline Phosphatase 133 U/L (38-126); Anion Gap 25 mmol/L; Blood Urea Nitrogen 21 mg/dL (9-20); Calcium 9.4 mg/dL (8.4-10.2); Carbon Dioxide 20 mmol/L (22-30); Chloride 95 mmol/L (98-107); Glucose 119 mg/dL (74-99); Lipase 129 U/L (23-300); Magnesium 1.2 mg/dL (1.6-2.3); Non-African American GFR(CKD) 51 (>60 ml/min/1.73 sqM); Phosphorus 2.9 mg/dL (2.5-4.5); Potassium 5.1 mmol/L (3.5-5.1); Sodium 140 mmol/L (137-145); Total Bilirubin 2.6 mg/dL (0.2-1.3); Total Protein 9.9 g/dL (6.3-8.2)
[2023-08-20 00:02] LABS: Basophils % (A) 0 %; Eosinophils % (A) 0 %; HCT 42.1 % (39.0-53.0); HGB 13.4 gm/dL (13.0-17.5); Lymphocytes # (A) 0.8 k/uL (1.0-4.8); Lymphocytes % (A) 7 %; MCH 29.6 pg (25.0-35.0); MCHC 31.9 g/dL (31.0-37.0); MCV 92.8 fL (80.0-100.0); Mean Platelet Volume 9.1; Monocytes # (A) 0.8 k/uL (0-1.0); Monocytes % (A) 7 %; Neutrophils # (A) 9.7 k/uL (1.3-7.7); Neutrophils % (A) 85 %; RBC 4.54 m/uL (4.30-5.90); RDW 15.8 % (11.5-15.5); WBC 11.4 k/uL (3.8-10.6)
[2023-08-20] MEDS ORDERED: SODIUM CHLORIDE 0.9% 1,000 ML IV STA (00:08)
[2023-08-20 00:29] LABS: Platelet Count 117 k/uL (150-450)
[2023-08-20] MEDS ORDERED: ONDANSETRON 4 MG/2 ML VIAL IVP PRN (01:39)
[2023-08-20] MEDS ORDERED: LORazepam 2 MG/ML INJ IV PRN ×2 (01:39)
[2023-08-20] MEDS ORDERED: NALOXONE 0.4 MG/ML 1 ML VIAL IV PRN (01:39)
[2023-08-20] MEDS ORDERED: MAGNESIUM SULFATE-D5W PMX 1 GM in DEXTROSE/WATER 1 100ML.BAG IVPB ONE (01:40)
[2023-08-20] MEDS ORDERED: MAGNESIUM OXIDE 400 MG TAB PO STA ×2 (01:40)
[2023-08-20] MEDS: SODIUM CHLORIDE 0.9% 1,000 ML IV SCH ×4 (03:04→20:11)
[2023-08-20] MEDS: LORazepam 2 MG/ML INJ IV PRN ×3 (04:31→17:05)
[2023-08-20 04:43] LABS: Appearance,Urine Clear (Clear); Bilirubin,Urine 1+ (Negative); Blood,Urine Negative (Negative); Color,Urine Yellow; Glucose,Urine (UA) Negative (Negative); Ketones,Urine 2+ (Negative); Leukocyte Esterase,Urine Negative (Negative); Nitrite,Urine Negative (Negative); Protein,Urine Trace (Negative); Specific Gravity,Urine 1.018 (1.001-1.035); Urobilinogen,Urine <2.0 mg/dL (<2.0)
[2023-08-20] MEDS: MULTIVITAMINS, THERA 1 EACH TAB PO SCH (09:00)
[2023-08-20] MEDS: MAGNESIUM OXIDE 400 MG TAB PO SCH ×2 (09:00→20:09)
[2023-08-20] MEDS: FOLIC ACID 1 MG TAB PO SCH (09:00)
[2023-08-20] MEDS: PANTOPRAZOLE 40 MG/10 ML VIAL IV SCH (09:00)
[2023-08-20] MEDS: MORPHINE SULFATE 4 MG/ML SYRINGE IV PRN (20:59)
[2023-08-21] MEDS: LORazepam 2 MG/ML INJ IV PRN ×3 (01:00→20:18)
[2023-08-21] MEDS: PANTOPRAZOLE 40 MG/10 ML VIAL IV SCH (08:28)
[2023-08-21] MEDS: THIAMINE 100 MG TAB PO SCH (08:28)
[2023-08-21] MEDS: MULTIVITAMINS, THERA 1 EACH TAB PO SCH (08:28)
[2023-08-21] MEDS: FOLIC ACID 1 MG TAB PO SCH (08:28)
[2023-08-21] MEDS: MAGNESIUM OXIDE 400 MG TAB PO SCH ×2 (08:28→20:18)
[2023-08-21] MEDS: SODIUM CHLORIDE 0.9% 1,000 ML IV SCH ×3 (10:09→20:21)
[2023-08-21 12:04] LABS: Basophils # (A) 0.02 X 10*3/uL (0.00-0.10); Basophils % (A) 0.3 %; Eosinophils # (A) 0.04 X 10*3/uL (0.04-0.35); Eosinophils % (A) 0.6 %; HCT 37.6 % (39.6-50.0); HGB 11.8 g/dL (13.0-17.0); Lymphocytes # (A) 1.91 X 10*3/uL (0.90-5.00); Lymphocytes % (A) 27.9 %; MCH 29.4 pg (27.0-32.0); MCHC 31.4 g/dL (32.0-37.0); MCV 93.8 FL (80.0-97.0); Monocytes # (A) 0.93 X 10*3/uL (0.20-1.00); Monocytes % (A) 13.6 %; NRBC Per 100 WBC 0 X 10*3/uL (0.00-0.01); Neutrophils # (A) 3.91 X 10*3/uL (1.80-7.70); Neutrophils % (A) 57.2 %; Platelet Count 82 X 10*3/uL (140-440); RBC 4.01 X 10*6/uL (4.40-5.60); RDW 16.1 % (11.5-14.5); WBC 6.84 X 10*3/uL (4.50-10.00)
[2023-08-21 12:05] LABS: RBC Morphology Normal (Normal)
[2023-08-21 13:55] LABS: ALT 72 U/L (10-49); AST 154 U/L (14-35); Albumin 3.6 g/dL (3.8-4.9); Albumin/Globulin Ratio 0.92 Ratio (1.60-3.17); Alkaline Phosphatase 99 U/L (41-126); BUN/Creat Ratio <4.38 Ratio (12.00-20.00); Blood Urea Nitrogen <3.5 mg/dL (9.0-27.0); Calcium 8.8 mg/dL (8.7-10.3); Carbon Dioxide 27.2 mmol/L (21.6-31.8); Chloride 101 mmol/L (96-109); Globulin 3.9 g/dL (1.6-3.3); Glucose 126 mg/dL (70-110); Magnesium 1.8 mg/dL (1.5-2.4); Phosphorus 2.2 mg/dL (2.4-5.1); Sodium 139 mmol/L (135-145); Total Bilirubin 1.8 mg/dL (0.3-1.2); Total Protein 7.5 g/dL (6.2-8.2)
--- NOTE | 2023-08-21 23:10 | HP ---
HISTORY AND PHYSICAL CHIEF COMPLAINT: Acute alcohol intoxication, intractable nausea and vomiting. HISTORY OF PRESENT ILLNESS: This is another admission for this year-old chronic alcoholic. He has been in and out of the hospital over the last several months and on numerous occasions acutely intoxicated. He also has a history of alcohol-related seizures. He came back in at this time with intractable nausea and vomiting and dehydration. He has had no hematemesis or melena. REVIEW OF SYSTEMS: He denies any chest pain, abdominal pain, hematemesis, melena, blackouts, seizures, etc. Past medical history, family history, and personal and social histories are all otherwise unremarkable, noncontributory or unchanged. ALLERGIES: He is not allergic to any medication. MEDICATIONS: He is not currently taking any. He has been prescribed Depakote in the past along with other medications for hypertension and abstinence from alcohol without success. PHYSICAL EXAMINATION: VITAL SIGNS: Normal. HEAD, EARS, EYES, NOSE, MOUTH AND THROAT: Normal. CHEST: Clear. CARDIAC: Normal. ABDOMEN: Soft and nontender. EXTREMITIES: Normal. NEUROLOGICAL: Intact. IMPRESSION: He is admitted to the hospital with diagnoses of: 1. Intractable nausea and vomiting. 2. Chronic alcoholism. 3. Acute alcoholic intoxication. 4. History of hypertension. 5. History of seizure disorder. PLAN: 1. Bedrest. 2. IV fluids. 3. Antiemetics. 4. CIWA protocol. ILIR / EDUARDO: [id number] /
[2023-08-22] MEDS: MORPHINE SULFATE 4 MG/ML SYRINGE IV PRN (01:22)
[2023-08-22] MEDS: PANTOPRAZOLE 40 MG/10 ML VIAL IV SCH (09:29)
[2023-08-22] MEDS: FOLIC ACID 1 MG TAB PO SCH (09:29)
[2023-08-22] MEDS: THIAMINE 100 MG TAB PO SCH (09:29)
[2023-08-22] MEDS: MULTIVITAMINS, THERA 1 EACH TAB PO SCH (09:29)
[2023-08-22] MEDS: MAGNESIUM OXIDE 400 MG TAB PO SCH ×2 (09:30→20:49)
[2023-08-22] MEDS: SODIUM CHLORIDE 0.9% 1,000 ML IV SCH ×2 (09:37→16:18)
[2023-08-22] MEDS: cloNIDine HCL 0.2 MG TAB PO SCH ×2 (13:00→16:02)
[2023-08-22] MEDS: LORazepam 2 MG/ML INJ IV PRN (20:58)
--- NOTE | 2023-08-23 01:54 | PN ---
PROGRESS NOTE CHIEF COMPLAINT: Acute alcohol intoxication, persistent nausea and vomiting. HISTORY OF PRESENT ILLNESS: This gentleman is feeling a little bit better. He still is nauseated and he threw up earlier this morning. He has had no hematemesis, diarrhea, melena, hematochezia, etc. PHYSICAL EXAMINATION: VITAL SIGNS: Normal. CHEST: Clear. CARDIAC: Normal. ABDOMEN: Soft, nontender. IMPRESSION: 1. Intractable nausea and vomiting. 2. Chronic alcoholism. 3. Acute alcohol intoxication. 4. History of hypertension. PLAN: Continue with IV fluids and antiemetics for the time being. MMODL / IJN: [id number] /
[2023-08-23] MEDS: cloNIDine HCL 0.2 MG TAB PO SCH ×2 (02:21→08:42)
--- NOTE | 2023-08-23 02:33 | PN ---
PROGRESS NOTE DATE OF SERVICE: 08/22/2023 CHIEF COMPLAINT: Acute alcohol intoxication with intractable nausea and vomiting. HISTORY OF PRESENT ILLNESS: This gentleman is doing a little bit better. His blood pressure is starting to rise, however. PHYSICAL EXAMINATION: CHEST: Clear. CARDIAC: Normal. NEUROLOGIC: He is slightly agitated. IMPRESSION: 1. Acute alcohol intoxication. 2. Intractable vomiting. 3. Dehydration. 4. Chronic alcoholism. 5. Hypertension, 166/100. PLAN: Start Catapres 0.2 t.i.d. and continue to monitor his neurologic status, vital signs, in particular, his blood pressure. MMODL / IJN: [id number] /
[2023-08-23] MEDS: SODIUM CHLORIDE 0.9% 1,000 ML IV SCH ×3 (03:08→16:05)
[2023-08-23] MEDS: THIAMINE 100 MG TAB PO SCH (08:42)
[2023-08-23] MEDS: FOLIC ACID 1 MG TAB PO SCH (08:42)
[2023-08-23] MEDS: MAGNESIUM OXIDE 400 MG TAB PO SCH (08:42)
[2023-08-23] MEDS: MULTIVITAMINS, THERA 1 EACH TAB PO SCH (08:42)
[2023-08-23] MEDS: PANTOPRAZOLE 40 MG/10 ML VIAL IV SCH (11:31)
[2023-08-23 12:06] VITALS: BP 144/92; PULSE 72; RESP 16; TEMP 98.4
--- NOTE | 2023-08-23 23:12 | DS ---
DISCHARGE SUMMARY CHIEF COMPLAINT: Acute alcohol intoxication and intractable nausea and vomiting. HISTORY OF PRESENT ILLNESS AND PHYSICAL EXAM: Details of this man's history and physical can be found in the initial workup. LABORATORY STUDIES: While he was in the hospital, he had laboratory studies, details of which can be found in the laboratory section of his chart. COURSE IN THE HOSPITAL: After admission, he was placed on bedrest, started on intravenous fluids and CIWA protocol. His nausea was eventually controlled. Liver enzymes are up and this was felt to be due to alcoholism. Blood pressure was also elevated, which he has experienced in the past. His blood pressure is being treated, nausea was stopped as well and also is able to eat a regular diet could go home on the and he will go home on thiamine, Catapres, and he will be followed up in the office. FINAL DIAGNOSES: 1. Intractable nausea and vomiting due to alcoholic gastritis. 2. Acute alcohol intoxication. 3. Chronic alcoholism. 4. Hypertension. 5. History of alcoholic related seizures. OPERATIONS: None. CONSULTATIONS: None. CONDITION: He is improved. MMODL / IJN: [id number] /
== END 2023-08-23 17:15 | disposition home or self-care (01) | DRG 775 ==
LOC: EC 22:51 → 5NMEDONC 08-20 01:40
PROVIDERS: ADMIT Family Medicine; ATTEND Family Medicine
DX: F10.239 Alcohol dependence with withdrawal, unspecified (principal); F10.229 Alcohol dependence with intoxication, unspecified; E87.29 Other acidosis; K29.20 Alcoholic gastritis without bleeding; Z28.310 Unvaccinated for COVID-19; E83.42 Hypomagnesemia; E86.0 Dehydration; Y90.0 Blood alcohol level of less than 20 mg/100 ml; I10 Essential (primary) hypertension; F41.9 Anxiety disorder, unspecified; Z96.60 Presence of unspecified orthopedic joint implant
CPT/HCPCS: 36415; 80053; 80320; 81003; 83690; 83735; 84100; 85025; 96361; 96374; 96375; 99285

== ENCOUNTER 2023-10-07 02:41 | Inpatient (IN) | payer OTHER ==
[2023-10-07 03:16] VITALS: RESP 18
--- NOTE | 2023-10-07 06:38 | ED ---
Alcohol HPI - General Chief Complaint: Alcohol Stated Complaint: ETOH Time Seen by Provider: 10/07/23 02:50 Source: patient Mode of arrival: EMS Limitations: no limitations - History of Present Illness Initial Comments: This patient is a 42-year-old man who is brought by ambulance to evaluation after police had observed him walking next the road and appearing to be stumbling. Patient admitted to alcohol use. Last drink within the hour. Patient denies injury. No head, neck, chest, back or abdomen pain. MD Complaint: alcohol intoxication -: hour(s) Previous Visits for Alcohol Intoxication?: Yes Recent Trauma: No Treatments Prior to Arrival: none Chronic Alcohol Use: Yes - Related Data Previous Rx's Medication Instructions Recorded Multivitamins, Thera [Multivitamin 1 each PO DAILY tab 10/18/23 (formulary)] LORazepam [Ativan] 1 mg PO TID 3 Days #9 tab 10/19/23 Allergies Allergy/AdvReac Type Severity Reaction Status Date / Time No Known Allergies Allergy Verified 10/19/23 04:26 Review of Systems ROS Statement: Those systems with pertinent positive or pertinent negative responses have been documented in the HPI. ROS Other: All systems not noted in ROS Statement are negative. Constitutional: Denies: fever Respiratory: Denies: cough, dyspnea Cardiovascular: Denies: chest pain Gastrointestinal: Denies: abdominal pain Musculoskeletal: Denies: back pain Neurological: Denies: headache Psychiatric: Denies: homicidal thoughts, suicidal thoughts Past Medical History Past Medical History: Hypertension, Pneumonia, Seizure Disorder Additional Past Medical History / Comment(s): ETOH History of Any Multi-Drug Resistant Organisms: None Reported Past Surgical History: Joint Replacement, Orthopedic Surgery Additional Past Surgical History / Comment(s): Right knee surgery, left leg incision and drainage for spider bite Past Anesthesia/Blood Transfusion Reactions: No Reported Reaction Past Psychological History: Anxiety, No Psychological Hx Reported Smoking Status: Current every day smoker Past Alcohol Use History: Abuse, Daily, Heavy Past Drug Use History: None Reported - Past Family History Sister(s) Family Medical History: Diabetes Mellitus Mother Family Medical History: Diabetes Mellitus Additional Family Medical History / Comment(s): from sudhakar johnsons syndrome Father Family Medical History: Diabetes Mellitus, Myocardial Infarction ([place]) Additional Family Medical History / Comment(s): from dm complications General Exam Limitations: no limitations General appearance: alert, in no apparent distress, appears intoxicated Head exam: Present: atraumatic, normocephalic Eye exam: Present: normal appearance. Absent: scleral icterus, conjunctival injection Neck exam: Present: normal inspection, full ROM. Absent: tenderness Respiratory exam: Present: normal lung sounds bilaterally. Absent: respiratory distress, wheezes, rales, rhonchi, stridor Cardiovascular Exam: Present: regular rate, normal rhythm, normal heart sounds. Absent: systolic murmur, diastolic murmur, rubs, gallop GI/Abdominal exam: Present: soft. Absent: distended, tenderness, guarding, rebound, rigid, mass Extremities exam: Present: normal inspection, normal capillary refill. Absent: pedal edema, calf tenderness Back exam: Present: normal inspection. Absent: CVA tenderness (R), CVA tenderness (L) Neurological exam: Present: alert, CN II-XII intact. Absent: motor sensory deficit Psychiatric exam: Absent: homicidal ideation, suicidal ideation Skin exam: Present: warm, dry, intact, normal color. Absent: rash Course Vital Signs 10/07/23 10/07/23 10/07/23 02:58 06:36 19:59 Temperature 98.6 F 98.2 F Pulse Rate 92 88 94 Respiratory 18 18 18 Rate Blood Pressure 134/90 128/86 158/96 O2 Sat by Pulse 100 99 96 Oximetry Medical Decision Making - Medical Decision Making Was pt. sent in by a medical professional or institution (DEVIN Woo, BRUSH MAKER, urgent care, hospital, or [facility]...) When possible be specific @ -[No] Did you speak to anyone other than the patient for history (EMS, parent, family, police, friend...)? What history was obtained from this source @ -[EMS personnel Did you review nursing and triage notes (agree or disagree)? Why? @ -[I reviewed and agree with nursing and triage notes] Were old charts reviewed (outside hosp., previous admission, EMS record, old EKG, old radiological studies, urgent care reports/EKG's, [facility] records)? Report findings @ -[Yes old charts were reviewed] Differential Diagnosis (chest pain, altered mental status, abdominal pain women, abdominal pain men, vaginal bleeding, weakness, fever, dyspnea, syncope, he adache, dizziness, GI bleed, back pain, seizure, CVA, palpatations, mental health, musculoskeletal)? @ -[Differential Altered Mental Status: Hypoglycemia, DKA, hypercapnia, ETOH, overdose, CO poisoning, trauma, myxedema coma, HTN encephalopathy, infection, encephalitis, psychosis, intercranial hemorrhage, hepatic encephalopathy, meningitis, CVA, this is not meant to be an all-inclusive list EKG interpreted by me (3pts min.). @ -[As above] X-rays interpreted by me (1pt min.). @ -[None done] CT interpreted by me (1pt min.). @ -[None done] U/S interpreted by me (1pt. min.). @ -[None done] What testing was considered but not performed or refused? (CT, X-rays, U/S, labs)? Why? @ -[None] What meds were considered but not given or refused? Why? @ -[None] Did you discuss the management of the patient with other professionals (pro fessionals i.e. , PA, BRUSH MAKER, lab, RT, psych nurse, social media assistant, concrete stone finisher, teacher, juvenile detention officer, trimming caser)? Give summary @ -[Case discussed with admitting physician and treatment recommendations are incorporated Was smoking cessation discussed for >3mins.? @ -[No] Was critical care preformed (if so, how long)? @ -[No] Were there social determinants of health that impacted care today? How? (Homelessness, low income, unemployed, alcoholism, drug addiction, transportation, low edu. Level, literacy, decrease access to med. care, intermediate, rehab)? @ -[No] Was there de-escalation of care discussed even if they declined (Discuss DNR or withdrawal of care, Hospice)? DNR status @ -[No] What co-morbidities impacted this encounter? (DM, HTN, Smoking, COPD, CAD, Cancer, CVA, ARF, Chemo, Hep., AIDS, mental health diagnosis, sleep apnea, morbid obesity)? @ -[None] Was patient admitted / discharged? Hospital course, mention meds given and route, prescriptions, significant lab abnormalities, going to OR and other pertinent info. @ -[Patient is 42-year-old man brought by ambulance of evaluation for suspected intoxication. Patient has history of multiple similar presentations. No evidence of trauma. Patient able to be aroused briefly and is appropriate though very intoxicated. We'll admit to prevent development of delirium tremens Undiagnosed new problem with uncertain prognosis? @ -[No] Drug Therapy requiring intensive monitoring for toxicity (Heparin, Nitro, Insulin, Cardizem)? @ -[No] Were any procedures done? @ -[No] Diagnosis/symptom? @ -[Acute alcohol intoxication Acute, or Chronic, or Acute on Chronic? @ -[Acute on chronic Uncomplicated (without systemic symptoms) or Complicated (systemic symptoms)? @ -[Complicated by mental status change Side effects of treatment? @ -[No] Exacerbation, Progression, or Severe Exacerbation? @ -[No] Poses a threat to life or bodily function? How? (Chest pain, [place], [place], pneumonia, PE, COPD, DKA, ARF, appy, cholecystitis, CVA, Diverticulitis, Homicidal, Suicidal, threat to staff... and all critical care pts) @ -[No] - Lab Data Result diagrams: 10/07/23 08:05 10/07/23 08:05 Disposition Clinical Impression: Alcoholic intoxication Disposition: ADMITTED IP TO THIS HOSP Condition: Stable Is patient prescribed a controlled substance at d/c from ED?: No
[2023-10-07 06:59] VITALS: TEMP 98.2
[2023-10-07] MEDS ORDERED: ACETAMINOPHEN TAB 325 MG TAB PO PRN (08:02)
[2023-10-07] MEDS ORDERED: NALOXONE 0.4 MG/ML 1 ML VIAL IV PRN (08:02)
[2023-10-07] MEDS ORDERED: chlordiazePOXIDE 25 MG CAP PO PRN (08:05)
[2023-10-07] MEDS ORDERED: THIAMINE 100 MG/ML 2 ML VIAL IM STA (08:05)
[2023-10-07] MEDS ORDERED: LORazepam 2 MG/ML INJ IV PRN ×3 (08:05)
[2023-10-07] MEDS ORDERED: SODIUM CHLORIDE 0.9% 1,000 ML IV SCH (08:15)
[2023-10-07 09:06] LABS: African American GFR (CKD) >90 (>60 ml/min/1.73 sqM); Anion Gap 19 mmol/L; Anisocytosis Slight; Blood Urea Nitrogen 14 mg/dL (9-20); Carbon Dioxide 24 mmol/L (22-30); Chloride 101 mmol/L (98-107); Glucose 77 mg/dL (74-99); HCT 41.9 % (39.0-53.0); HGB 13.5 gm/dL (13.0-17.5); MCH 29.3 pg (25.0-35.0); MCHC 32.1 g/dL (31.0-37.0); MCV 91.2 fL (80.0-100.0); Mean Platelet Volume 10.5; Non-African American GFR(CKD) >90 (>60 ml/min/1.73 sqM); Platelet Count 146 k/uL (150-450); Potassium 3.9 mmol/L (3.5-5.1); RBC 4.59 m/uL (4.30-5.90); RDW 16.5 % (11.5-15.5); Sodium 144 mmol/L (137-145); WBC 4.5 k/uL (3.8-10.6)
[2023-10-07 09:16] LABS: Alcohol 443 mg/dL
[2023-10-07 10:24] LABS: Basophils # (M) 0.14 k/uL (0-0.2); Nucleated Red Blood Cells 0 /100 WBC (0-0)
[2023-10-07 10:26] LABS: Eosinophils # (M) 0.18 k/uL (0-0.7); Lymphocytes # (M) 2.21 k/uL (1.0-4.8); Monocytes # (M) 0.59 k/uL (0-1.0); Neutrophils # (M) 1.49 k/uL (1.3-7.7); Neutrophils % (M) 33 %; Total Cells Counted 200
[2023-10-07 10:29] LABS: Target Cells Present
[2023-10-07 20:10] VITALS: BP 158/96; PULSE 94
--- NOTE | 2023-10-07 22:23 | HP ---
HISTORY AND PHYSICAL CHIEF COMPLAINT: Acute alcohol intoxication and coma. HISTORY OF PRESENT ILLNESS: This is another recent admission for this 42-year-old male, who has been coming in very frequently with acute alcohol intoxication. He presented this time again semicomatose with an alcohol 443. REVIEW OF SYSTEMS: Unobtainable. Past medical history, family history, and personal and social histories were all unobtainable. Remainder of his history is unremarkable. PHYSICAL EXAMINATION: VITAL SIGNS: Normal. HEAD, EARS, EYES, NOSE, MOUTH AND THROAT: Normal. CHEST: Clear. CARDIAC: Normal. ABDOMEN: Soft, nontender without any visceromegaly or masses. Bowel sounds are present. EXTREMITIES: Normal. NEUROLOGIC: He is intact. IMPRESSION: 1. Acute alcohol intoxication. 2. Chronic alcoholism. PLAN: 1. Bed rest. 2. IV fluids. 3. CIWA protocol. 4. Frequent monitoring of his neurologic status and vital signs. MMODL / IJN: [id number] /
[2023-10-08] MEDS ORDERED: THIAMINE 100 MG TAB PO SCH (09:00)
--- NOTE | 2023-10-16 20:32 | DS ---
DISCHARGE SUMMARY CHIEF COMPLAINT: Acute alcohol intoxication. HISTORY OF PRESENT ILLNESS AND PHYSICAL EXAMINATION: Details of this man's history and physical can be found in the initial workup. LABORATORY STUDIES: While he was in the hospital, he had laboratory studies, details of which can be found in the laboratory section of his chart. COURSE IN THE HOSPITAL: After admission, he was placed on bedrest, started on intravenous fluids, and started on the CIWA protocol. Shortly after admission, he signed out against medical advice. FINAL DIAGNOSES: 1. Acute alcohol intoxication. 2. Chronic alcoholism. 3. History of alcoholic seizure disorder. OPERATIONS: None. CONSULTATIONS: None. MMODL / IJN: [id number] /
== END 2023-10-07 20:04 | disposition left against medical advice (07) | DRG 770 ==
LOC: EC 02:41 → 5NMEDONC 08:05
PROVIDERS: ADMIT Family Medicine; ATTEND Family Medicine
DX: F10.229 Alcohol dependence with intoxication, unspecified (principal); G40.909 Epilepsy, unspecified, not intractable, without status epilepticus; I10 Essential (primary) hypertension; R40.20 Unspecified coma; Z82.49 Family history of ischemic heart disease and other diseases of the circulatory system; F17.210 Nicotine dependence, cigarettes, uncomplicated; Y90.8 Blood alcohol level of 240 mg/100 ml or more; F41.9 Anxiety disorder, unspecified
CPT/HCPCS: 80048; 80320; 82075; 83735; 85025; 96360; 96372; 99285

== ENCOUNTER 2023-10-12 02:47 | Observation (INO) | payer OTHER ==
[2023-10-12] MEDS ORDERED: ONDANSETRON 4 MG/2 ML VIAL IVP STA (02:49)
[2023-10-12] MEDS ORDERED: MORPHINE SULFATE 2 MG/ML SYRINGE IVP STA (02:49)
[2023-10-12] MEDS ORDERED: SODIUM CHLORIDE 0.9% 1,000 ML IV STA ×2 (02:49→04:39)
--- NOTE | 2023-10-12 02:55 | ED ---
General Adult HPI - General Chief complaint: Fall Stated complaint: ETOH WITH FALL Time Seen by Provider: 10/12/23 02:48 Source: patient, EMS, RN notes reviewed, old records reviewed Mode of arrival: EMS Limitations: no limitations - History of Present Illness Initial comments: Patient is a 42-year-old male with past medical history remarkable for hyper tension, alcohol abuse presents to the emergency Department after multiple falls while intoxicated prior to arrival. Unknown if he lost consciousness. Is complaining of generalized head pain. Denies any bleeding or other injuries. Does have mild right hip pain. No neck pain, back pain. No belly pain or chest pain. No other acute complaints at this time. Is not on blood thinners. Presents for further evaluation at this time. Does not meet criteria for trauma activation.Patient states he does remember the falls and states that he lost his balance multiple times. - Related Data Home Medications Medication Instructions Recorded Confirmed No Known Home Medications 10/07/23 10/07/23 Allergies Allergy/AdvReac Type Severity Reaction Status Date / Time No Known Allergies Allergy Verified 10/07/23 11:28 Review of Systems ROS Statement: Those systems with pertinent positive or pertinent negative responses have been documented in the HPI. Review of Systems: CONST: Denies fever EYES: Denies blurry vision ENT: Denies nasal congestion C/V: Denies Chest pain RESP: Denies shortness of breath GI: Denies abdominal pain : Denies dysuria SKIN: Denies rash. MSK: Endorses head pain, right hip pain NEURO: [Denies headache] ROS Other: All systems not noted in ROS Statement are negative. Past Medical History Past Medical History: Hypertension, Pneumonia, Seizure Disorder Additional Past Medical History / Comment(s): ETOH History of Any Multi-Drug Resistant Organisms: None Reported Past Surgical History: Joint Replacement, Orthopedic Surgery Additional Past Surgical History / Comment(s): Right knee surgery, left leg incision and drainage for spider bite Past Anesthesia/Blood Transfusion Reactions: No Reported Reaction Past Psychological History: Anxiety, No Psychological Hx Reported Smoking Status: Current every day smoker Past Alcohol Use History: Abuse, Daily, Heavy Past Drug Use History: None Reported - Past Family History Sister(s) Family Medical History: Diabetes Mellitus Mother Family Medical History: Diabetes Mellitus Additional Family Medical History / Comment(s): from sudhakar johnsons syndrome Father Family Medical History: Diabetes Mellitus, Myocardial Infarction ([place]) Additional Family Medical History / Comment(s): from dm complications General Exam - General Exam Comments Initial Comments: General: Appears in no acute distress. Smells of alcohol. Obviously int oxicated with alcohol. HEAD: Normal with no signs of head trauma. Negative mueller sign. Negative raccoon eyes. EYES: PERRLA, EOMI, conjunctiva normal, no discharge. Pupils are 3 mm equal bilaterally. ENT: Hearing grossly intact, normal oropharynx. RESPIRATORY: Clear breath sounds bilaterally. No wheezes, rales, or rhonchi. C/V: Mild tachycardia. S1 and S2 auscultated, no edema, peripheral pulses 2+ and intact throughout ABD: Abd is soft, nontender, nondistended EXT: Normal range of motion, no obvious deformity. Pelvis is stable. Extremities have no tenderness to palpation. Mild right hip tenderness to palpation. No midline cervical, thoracic, lumbar spine tenderness to palpation. SKIN: No rashes or lesions observed on exposed skin. NEURO: Alert and oriented x 4. Cranial nerves II-XII intact. No focal sensory or strength deficits. GCS of 15 Limitations: no limitations Course Vital Signs 10/12/23 10/12/23 10/12/23 02:50 03:32 04:35 Temperature 97.7 F Pulse Rate 113 H 104 H 106 H Respiratory 18 16 16 Rate Blood Pressure 141/102 126/94 97/66 O2 Sat by Pulse 100 97 95 Oximetry Medical Decision Making - Medical Decision Making Was pt. sent in by a medical professional or institution (DEVIN Woo, PUMP ASSEMBLER, urgent care, hospital, or long-term...) When possible be specific @ -No Did you speak to anyone other than the patient for history (EMS, parent, family, police, friend...)? What history was obtained from this source @ -No Did you review nursing and triage notes (agree or disagree)? Why? @ -I reviewed and agree with nursing and triage notes Were old charts reviewed (outside hosp., previous admission, EMS record, old EKG, old radiological studies, urgent care reports/EKG's, long-term records)? Report findings @ -Old charts reviewed Differential Diagnosis (chest pain, altered mental status, abdominal pain women, abdominal pain men, vaginal bleeding, weakness, fever, dyspnea, syncope, headache, dizziness, GI bleed, back pain, seizure, CVA, palpatations, mental health, musculoskeletal)? @ -Differential Musculoskeletal Muscular strain, contusion, ligament sprain, fracture, arthritis, septic arthritis, bursitis, cellulitis, muscle spasm, nerve compression, DVT, arterial occlusion, herpes zoster, electrolyte abnormality, tumor.... This is not meant to be in all inclusive list. Also includes intracranial injury, bony traumatic injury, alcohol intoxication. EKG interpreted by me (3pts min.). @ -As above X-rays interpreted by me (1pt min.). @ -X-rays negative for any obvious acute injury. This includes both chest and pelvis x-ray. CT interpreted by me (1pt min.). @ -CT brain, C-spine, face negative for any obvious traumatic injuries. U/S interpreted by me (1pt. min.). @ -None done What testing was considered but not performed or refused? (CT, X-rays, U/S, labs)? Why? @ -None What meds were considered but not given or refused? Why? @ -None Did you discuss the management of the patient with other professionals (professionals i.e. , PA, PUMP ASSEMBLER, lab, RT, psych nurse, director social welfare, technology analyst, teacher, special technical operations officer, case sealer)? Give summary @ -Discussed with Dr. Cho who accepted the admission. Was smoking cessation discussed for >3mins.? @ -No Was critical care preformed (if so, how long)? @ -No Were there social determinants of health that impacted care today? How? (Homelessness, low income, unemployed, alcoholism, drug addiction, transportation, low edu. Level, literacy, decrease access to med. care, longterm, rehab)? @ -No Was there de-escalation of care discussed even if they declined (Discuss DNR or withdrawal of care, Hospice)? DNR status @ -No What co-morbidities impacted this encounter? (DM, HTN, Smoking, COPD, CAD, Cancer, CVA, ARF, Chemo, Hep., AIDS, mental health diagnosis, sleep apnea, morbid obesity)? @ -None Was patient admitted / discharged? Hospital course, mention meds given and route, prescriptions, significant lab abnormalities, going to OR and other pertinent info. @ -Based on the patient's presentation and physical exam, presents following a fall from standing. He isn't toxic alcohol. No obvious deformities at this time. Is complaining of right hip pain, head pain from the falls. Patient be administered IV fluids, IV morphine. We will obtain CT brain, C-spine, facial bones as well as chest and pelvis x-ray. Basic labs also be obtained. Patient was in agreement with this plan. Vital signs are within accepted limits other than mild tachycardia. He'll be administered IV morphine, Zofran, 1 L fluid bolus. EKG shows no signs of acute ischemia.Imaging negative for any obvious traumatic injury. Patient's labs remarkable for an alcohol level of 423. Cervical spine was cleared. Patient is feeling improved. He is resting comfortably at this time. Discussed results with him. He'll be admitted for his alcohol intoxication. He was placed on CIWA protocol. Patient in agreement with this plan.No evidence of alcohol withdrawals at this time. I spoke with the patient's PCP, Dr. Cho who accepted the admission. Undiagnosed new problem with uncertain prognosis? @ -No Drug Therapy requiring intensive monitoring for toxicity (Heparin, Nitro, Insulin, Cardizem)? @ -No Were any procedures done? @ -No Diagnosis/symptom? @ -Alcohol intoxication, fall Acute, or Chronic, or Acute on Chronic? @ -Acute Uncomplicated (without systemic symptoms) or Complicated (systemic symptoms)? @ -Complicated Side effects of treatment? @ -none Exacerbation, Progression, or Severe Exacerbation] @ -no Poses a threat to life or bodily function? @ -yes - Lab Data Result diagrams: 10/12/23 02:54 10/12/23 02:54 Lab Results 10/12/23 10/12/23 10/12/23 Range/Units 02:54 02:54 02:54 WBC 4.8 (3.8-10.6) k/uL RBC 4.15 L (4.30-5.90) m/uL Hgb 12.0 L (13.0-17.5) gm/dL Hct 37.3 L (39.0-53.0) % MCV 90.0 (80.0-100.0) fL MCH 28.9 (25.0-35.0) pg MCHC 32.2 (31.0-37.0) g/dL RDW 17.0 H (11.5-15.5) % Plt Count 137 L (150-450) k/uL MPV 9.1 Neutrophils % (Manual) 34 % Lymphocytes % (Manual) 58 % Monocytes % (Manual) 8 % Neutrophils # (Manual) 1.63 (1.3-7.7) k/uL Lymphocytes # (Manual) 2.78 (1.0-4.8) k/uL Monocytes # (Manual) 0.38 (0-1.0) k/uL Nucleated RBCs 0 (0-0) /100 WBC Manual Slide Review Performed Anisocytosis Slight Target Cells Present PT 11.9 (10.0-12.5) sec INR 1.1 (<1.2) APTT 25.0 (22.0-30.0) sec Sodium (137-145) mmol/L Potassium (3.5-5.1) mmol/L Chloride (98-107) mmol/L Carbon Dioxide (22-30) mmol/L Anion Gap mmol/L BUN (9-20) mg/dL Creatinine (0.66-1.25) mg/dL Est GFR (CKD-EPI)AfAm (>60 ml/min/1.73 sqM) Est GFR (CKD-EPI)NonAf (>60 ml/min/1.73 sqM) Glucose (74-99) mg/dL Calcium (8.4-10.2) mg/dL Total Bilirubin (0.2-1.3) mg/dL AST (17-59) U/L ALT (4-49) U/L Alkaline Phosphatase (38-126) U/L Total Protein (6.3-8.2) g/dL Albumin (3.5-5.0) g/dL Urine Opiates Screen Not Detected (NotDetected) Ur Oxycodone Screen Not Detected (NotDetected) Urine Methadone Screen Not Detected (NotDetected) Ur Barbiturates Screen Not Detected (NotDetected) U Tricyclic Antidepress Not Detected (NotDetected) Ur Phencyclidine Scrn Not Detected (NotDetected) Ur Amphetamines Screen Not Detected (NotDetected) U Methamphetamines Scrn Not Detected (NotDetected) U Benzodiazepines Scrn Not Detected (NotDetected) Urine Cocaine Screen Not Detected (NotDetected) U Marijuana (THC) Screen Not Detected (NotDetected) Serum Alcohol mg/dL Blood Type Blood Type Recheck Bld Type Recheck Status Antibody Screen Spec Expiration Date 10/12/23 10/12/23 Range/Units 02:54 02:54 WBC (3.8-10.6) k/uL RBC (4.30-5.90) m/uL Hgb (13.0-17.5) gm/dL Hct (39.0-53.0) % MCV (80.0-100.0) fL MCH (25.0-35.0) pg MCHC (31.0-37.0) g/dL RDW (11.5-15.5) % Plt Count (150-450) k/uL MPV Neutrophils % (Manual) % Lymphocytes % (Manual) % Monocytes % (Manual) % Neutrophils # (Manual) (1.3-7.7) k/uL Lymphocytes # (Manual) (1.0-4.8) k/uL Monocytes # (Manual) (0-1.0) k/uL Nucleated RBCs (0-0) /100 WBC Manual Slide Review Anisocytosis Target Cells PT (10.0-12.5) sec INR (<1.2) APTT (22.0-30.0) sec Sodium 142 (137-145) mmol/L Potassium 3.9 (3.5-5.1) mmol/L Chloride 101 (98-107) mmol/L Carbon Dioxide 23 (22-30) mmol/L Anion Gap 18 mmol/L BUN 10 (9-20) mg/dL Creatinine 0.79 (0.66-1.25) mg/dL Est GFR (CKD-EPI)AfAm >90 (>60 ml/min/1.73 sqM) Est GFR (CKD-EPI)NonAf >90 (>60 ml/min/1.73 sqM) Glucose 92 (74-99) mg/dL Calcium 9.1 (8.4-10.2) mg/dL Total Bilirubin 1.3 (0.2-1.3) mg/dL AST 131 H (17-59) U/L ALT 65 H (4-49) U/L Alkaline Phosphatase 166 H (38-126) U/L Total Protein 8.9 H (6.3-8.2) g/dL Albumin 4.3 (3.5-5.0) g/dL Urine Opiates Screen (NotDetected) Ur Oxycodone Screen (NotDetected) Urine Methadone Screen (NotDetected) Ur Barbiturates Screen (NotDetected) U Tricyclic Antidepress (NotDetected) Ur Phencyclidine Scrn (NotDetected) Ur Amphetamines Screen (NotDetected) U Methamphetamines Scrn (NotDetected) U Benzodiazepines Scrn (NotDetected) Urine Cocaine Screen (NotDetected) U Marijuana (THC) Screen (NotDetected) Serum Alcohol 423 H* mg/dL Blood Type B Positive Blood Type Recheck B Pos Bld Type Recheck Status No Antibody Screen NEGATIVE Spec Expiration Date 10/15/20232353 - EKG Data -: EKG Interpreted by Me EKG Comments: 12-lead Electrocardiogram Interpretation Note EKG was reviewed and interpreted by myself. 12-lead ECG performed at 0252 is interpreted by me as revealing sinus tachycardia at a rate of 109 beats per minute. [place] is normal. [place] interval is 136 ms, QRS duration is 105 ms, QTc is 391 ms. Patient is an incomplete right bundle branch block. Isolated T-wave inversion in lead III which is redemonstrated on prior EKGs from March 2023. There were no obvious acute ST or T wave abnormalities to suggest myocardial ischemia or injury. R wave progression across the precordium was satisfactory. By my interpretation this EKG is non-diagnostic for acute ischemia. Disposition Clinical Impression: Fall, Alcohol intoxication Disposition: ADMITTED IP TO THIS HOSP Condition: Stable Referrals: Luis Cho MD [Primary Care Provider] - 1-2 days Time of Disposition: 05:17
[2023-10-12 03:08] LABS: Anisocytosis Slight; HCT 37.3 % (39.0-53.0); MCH 28.9 pg (25.0-35.0); MCHC 32.2 g/dL (31.0-37.0); Mean Platelet Volume 9.1; Platelet Count 137 k/uL (150-450); RBC 4.15 m/uL (4.30-5.90); WBC 4.8 k/uL (3.8-10.6)
[2023-10-12 03:17] LABS: INR 1.1 (<1.2); Prothrombin Time 11.9 sec (10.0-12.5)
[2023-10-12 03:19] LABS: ALT 65 U/L (4-49); AST 131 U/L (17-59); African American GFR (CKD) >90 (>60 ml/min/1.73 sqM); Albumin 4.3 g/dL (3.5-5.0); Alkaline Phosphatase 166 U/L (38-126); Anion Gap 18 mmol/L; Blood Urea Nitrogen 10 mg/dL (9-20); Calcium 9.1 mg/dL (8.4-10.2); Carbon Dioxide 23 mmol/L (22-30); Chloride 101 mmol/L (98-107); Glucose 92 mg/dL (74-99); Non-African American GFR(CKD) >90 (>60 ml/min/1.73 sqM); Potassium 3.9 mmol/L (3.5-5.1); Sodium 142 mmol/L (137-145); Total Bilirubin 1.3 mg/dL (0.2-1.3); Total Protein 8.9 g/dL (6.3-8.2)
[2023-10-12 04:13] LABS: Alcohol 423 mg/dL
--- NOTE | 2023-10-12 04:17 | XR ---
EXAM: XR Chest, 1 View CLINICAL HISTORY: Trauma TECHNIQUE: Frontal view of the chest. COMPARISON: Chest 2 views 06/30/2023 FINDINGS: Lungs: Slightly diminished lung volumes. No definite pulmonary contusive injury or focal consolidation. Pleural space: Unremarkable. No pneumothorax. No large pleural effusion. Heart: The cardiac silhouette is more prominent from the previous examination, despite presumed accentuation by obliquity. Mediastinum: Evaluation of the mediastinal structures are slightly limited by obliquity. No obvious widening. The trachea is midline. Bones/joints: Unremarkable. No acute fracture. IMPRESSION: No radiographic evidence for significant acute traumatic injury to the chest/thorax. The cardiac silhouette is larger in size when compared to the previous examination. Differential consideration includes accentuation by portable technique and obliquity, developing cardiomegaly or pericardial effusion.
--- NOTE | 2023-10-12 04:20 | XR ---
EXAM: XR Pelvis, 1 or 2 Views CLINICAL HISTORY: Trauma TECHNIQUE: Frontal view of the pelvis. COMPARISON: No relevant prior studies available. FINDINGS: Bones/joints: Unremarkable. No acute fracture. No dislocation. Soft tissues: Unremarkable. IMPRESSION: Negative radiographic evaluation of the pelvis.
--- NOTE | 2023-10-12 04:23 | CT ---
EXAM: CT Head Without Intravenous Contrast CLINICAL HISTORY: Trauma TECHNIQUE: Axial computed tomography images of the head/brain without intravenous contrast. CTDI is 25.8 mGy and DLP is 803.8 mGy-cm. This CT exam was performed using one or more of the following dose reduction techniques: automated exposure control, adjustment of the mA and/or kV according to patient size, and/or use of iterative reconstruction technique. COMPARISON: CT head 07/13/2023 FINDINGS: Brain: Unremarkable. No hemorrhage. No significant white matter disease. No edema. Ventricles: Unremarkable. No ventriculomegaly. Bones/joints: Unremarkable. No acute fracture. Soft tissues: No significant overlying acute traumatic soft tissue abnormality. No radiopaque foreign body. Sinuses: Unremarkable as visualized. No acute sinusitis. Mastoid air cells: Unremarkable as visualized. No mastoid effusion. IMPRESSION: No acute intracranial process identified. EXAM: CT Cervical Spine Without Intravenous Contrast CLINICAL HISTORY: Trauma TECHNIQUE: Axial computed tomography images of the cervical spine without intravenous contrast. CTDI is 12.5 mGy and DLP is 373.6 mGy-cm. This CT exam was performed using one or more of the following dose reduction techniques: automated exposure control, adjustment of the mA and/or kV according to patient size, and/or use of iterative reconstruction technique. COMPARISON: No relevant prior studies available. FINDINGS: Vertebrae: The vertebral bodies are intact without acute osseous traumatic injury. 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 No anterolisthesis or retrolisthesis is identified. The facet joints are well aligned without subluxation or dislocation. The pedicles, transverse processes and spinous processes are intact. Discs/spinal canal/neural foramina: No acute findings. No osseous spinal canal stenosis. Soft tissues: Unremarkable. Lung apices: The included lung apices demonstrate no evidence for acute traumatic injury. IMPRESSION: No acute osseous traumatic injury or significant abnormal alignment involving the cervical spine.
[2023-10-12 04:24] LABS: Amphetamine Screen,Urine Not Detected (NotDetected); Barbiturate Screen,Urine Not Detected (NotDetected); Benzodiazepines Screen,Urine Not Detected (NotDetected); Cocaine Screen,Urine Not Detected (NotDetected); Methadone Screen, Urine Not Detected (NotDetected); Opiate Screen,Urine Not Detected (NotDetected); Oxycodone Screen, Urine Not Detected (NotDetected); Phencyclidine Screen,Urine Not Detected (NotDetected); Tricyclic Antidepressant,Urine Not Detected (NotDetected); Urn Cannabinoid Scrn Not Detected (NotDetected)
[2023-10-12 04:33] LABS: Lymphocytes # (M) 2.78 k/uL (1.0-4.8); Monocytes # (M) 0.38 k/uL (0-1.0); Neutrophils # (M) 1.63 k/uL (1.3-7.7); Neutrophils % (M) 34 %; Nucleated Red Blood Cells 0 /100 WBC (0-0); Total Cells Counted 100
[2023-10-12 04:36] LABS: Target Cells Present
[2023-10-12] MEDS ORDERED: THIAMINE 100 MG/ML 2 ML VIAL IM STA (04:36)
[2023-10-12] MEDS ORDERED: LORazepam 2 MG/ML INJ IV PRN ×2 (04:36)
--- NOTE | 2023-10-12 05:29 | CT ---
EXAM: CT Maxillofacial Without Intravenous Contrast CLINICAL HISTORY: Trauma TECHNIQUE: Axial computed tomography images of the face without intravenous contrast. CTDI is 12.5 mGy and DLP is 373.6 mGy-cm. This CT exam was performed using one or more of the following dose reduction techniques: automated exposure control, adjustment of the mA and/or kV according to patient size, and/or use of iterative reconstruction technique. COMPARISON: No relevant prior studies available. FINDINGS: Bones/joints: No acute osseous maxillofacial fracture. The nasal bones are intact. The mandible is intact and is well aligned. Previous surgical repair of the mandible with bilateral plate and screw fixation. Soft tissues: No significant acute traumatic soft tissue abnormality. No radiopaque foreign body. Orbits: Unremarkable. Sinuses: Unremarkable. No air-fluid levels. IMPRESSION: No significant acute traumatic injury involving the maxillofacial region.
[2023-10-12] MEDS ORDERED: NALOXONE 0.4 MG/ML 1 ML VIAL IV PRN (05:36)
[2023-10-12] MEDS ORDERED: ONDANSETRON 4 MG/2 ML VIAL IVP PRN (05:36)
[2023-10-12] MEDS ORDERED: ACETAMINOPHEN TAB 325 MG TAB PO PRN (05:36)
[2023-10-12] MEDS: LORazepam 2 MG/ML INJ IV PRN (19:56)
--- NOTE | 2023-10-13 02:20 | HP ---
HISTORY AND PHYSICAL CHIEF COMPLAINT: Acute alcohol intoxication and fall. HISTORY OF PRESENT ILLNESS: This is another of many recent admissions for this 42-year-old alcoholic. He has been in and out of the hospital every week or two for the last several months. He was just in a few days ago and left AMA. He apparently came intoxicated once again and had fallen and struck the back of his head. Studies in the ER demonstrated no pathology on CT, cervical spine films, etc. Review of systems, past medical history, family history, and personal and social histories are all otherwise noncontributory and otherwise unchanged. PHYSICAL EXAMINATION: VITAL SIGNS: Normal. HEAD, EARS, EYES, NOSE, MOUTH, AND THROAT: Normal. There are no lacerations on the back of the head. Pupils are equal, round, reactive, and the gaze is conjugate. CHEST: Clear. CARDIAC: Normal. ABDOMEN: Soft and nontender. EXTREMITIES: Normal. NEUROLOGICAL: Intact. ASSESSMENT: He is admitted to the hospital with diagnoses of: 1. Acute alcohol intoxication. 2. Fall with contusion to the back of his scalp. 3. History of alcoholic seizures. PLAN: 1. Bedrest. 2. IV fluids. 3. Frequent monitoring of his neurologic status and vital signs. 4. [facility] protocol. MMODL / IJN: [id number] /
[2023-10-13] MEDS: LORazepam 2 MG/ML INJ IV PRN ×2 (03:43→07:43)
[2023-10-13] MEDS ORDERED: THIAMINE 100 MG TAB PO SCH (09:00)
[2023-10-13 12:51] VITALS: BP 146/93; PULSE 80; RESP 13; TEMP 98.7
--- NOTE | 2023-10-15 20:56 | DS ---
DISCHARGE SUMMARY CHIEF COMPLAINT: Acute alcohol intoxication. HISTORY OF PRESENT ILLNESS AND PHYSICAL EXAMINATION: Details of this man's history and physical can be found in the initial workup. LABORATORY STUDIES: While he was in the hospital, he had laboratory studies, details of which can be found in the laboratory section of his chart. COURSE IN THE HOSPITAL: After admission, he was placed on bedrest, started on intravenous fluids and CIWA protocol. He did well and became a bit more awake and alert and sober and signed out AMA. FINAL DIAGNOSES: 1. Acute alcohol intoxication. 2. Chronic alcoholism. 3. History of alcoholic seizure disorder. OPERATIONS: None. CONSULTATION: None. He is improved. MMODL / IJN: [id number] /
--- NOTE | 2023-10-16 02:34 | PN ---
PROGRESS NOTE CHIEF COMPLAINT: Acute alcohol intoxication. HISTORY OF PRESENT ILLNESS: This gentleman is still slightly lethargic. He is not vomiting. PHYSICAL EXAMINATION: VITAL SIGNS: Normal. CHEST: Clear. CARDIAC: Normal. ABDOMEN: Soft, nontender. IMPRESSION: 1. Acute alcohol intoxication. 2. Chronic alcoholism. PLAN: Continue with IV fluids and CIWA protocol. ILIR / EDUARDO: [id number] /
== END 2023-10-13 19:13 | disposition left against medical advice (07) ==
LOC: EC 02:47 → 4SSUR 05:36
PROVIDERS: ADMIT Family Medicine; ATTEND Family Medicine
DX: F10.229 Alcohol dependence with intoxication, unspecified (principal); Z53.29 Procedure and treatment not carried out because of patient's decision for other reasons; S20.229A Contusion of unspecified back wall of thorax, initial encounter; Y90.8 Blood alcohol level of 240 mg/100 ml or more; R29.6 Repeated falls; I10 Essential (primary) hypertension; R00.0 Tachycardia, unspecified; M25.551 Pain in right hip; G40.909 Epilepsy, unspecified, not intractable, without status epilepticus; F41.9 Anxiety disorder, unspecified; F17.200 Nicotine dependence, unspecified, uncomplicated; Z87.01 Personal history of pneumonia (recurrent); Z83.3 Family history of diabetes mellitus; Z82.49 Family history of ischemic heart disease and other diseases of the circulatory system
CPT/HCPCS: 96376; 96361 ×3; 96372; 96375 ×2; 96374; 99285; 36415; 93005; 86900; 86901; 80053; 85025; 85610; 85730; 86850; 80306; 80320; 72170; 71045; 72125; 70486; 70450; G0378 ×2; J2060 ×2; J3411; J2405; J2270

== ENCOUNTER 2023-10-15 01:19 | Observation (INO) | payer OTHER ==
[2023-10-15] MEDS ORDERED: SODIUM CHLORIDE 0.9% 1,000 ML IV STA ×2 (01:28→03:24)
--- NOTE | 2023-10-15 01:39 | ED ---
General Adult HPI - General Stated complaint: ETOH Time Seen by Provider: 10/15/23 01:22 - History of Present Illness Initial comments: 42-year-old male presenting to the ED with alcohol intoxication. At this time secondary to intoxication history Limited however per EMS patient was found drunken, stumbling outside of a convenience store. As time patient resting comfortably in bed and easily arousable however does not answer questions. - Related Data Home Medications Medication Instructions Recorded Confirmed No Known Home Medications 10/07/23 10/12/23 Allergies Allergy/AdvReac Type Severity Reaction Status Date / Time No Known Allergies Allergy Verified 10/15/23 01:41 Review of Systems ROS Statement: Those systems with pertinent positive or pertinent negative responses have been documented in the HPI. ROS Other: All systems not noted in ROS Statement are negative. Past Medical History Past Medical History: Hypertension, Pneumonia, Seizure Disorder Additional Past Medical History / Comment(s): ETOH History of Any Multi-Drug Resistant Organisms: None Reported Past Surgical History: Joint Replacement, Orthopedic Surgery Additional Past Surgical History / Comment(s): Right knee surgery, left leg incision and drainage for spider bite Past Anesthesia/Blood Transfusion Reactions: No Reported Reaction Past Psychological History: Anxiety, No Psychological Hx Reported - Past Family History Sister(s) Family Medical History: Diabetes Mellitus Mother Family Medical History: Diabetes Mellitus Additional Family Medical History / Comment(s): from sudhakar johnsons syndrome Father Family Medical History: Diabetes Mellitus, Myocardial Infarction ([place]) Additional Family Medical History / Comment(s): from dm complications General Exam General appearance: alert, in no apparent distress Respiratory exam: Present: normal lung sounds bilaterally Cardiovascular Exam: Present: regular rate, normal rhythm GI/Abdominal exam: Present: soft Neurological exam: Present: other (Easily arousable but quickly falls back asleep.) Skin exam: Present: warm, dry Course Vital Signs 10/15/23 01:41 Temperature 97.1 F L Pulse Rate 87 Respiratory 18 Rate Blood Pressure 124/87 O2 Sat by Pulse 94 L Oximetry Medical Decision Making - Medical Decision Making Was pt. sent in by a medical professional or institution (, PA, TOOL ROOM GEAR MACHINE OPERATOR, urgent care, hospital, or snf...) When possible be specific @ -No Did you speak to anyone other than the patient for history (EMS, parent, family, police, friend...)? What history was obtained from this source @ -No Did you review nursing and triage notes (agree or disagree)? Why? @ -I reviewed and agree with nursing and triage notes Were old charts reviewed (outside hosp., previous admission, EMS record, old EKG, old radiological studies, urgent care reports/EKG's, snf records)? Report findings @ -Charts reviewed showing history of alcoholism. Differential Diagnosis (chest pain, altered mental status, abdominal pain women, abdominal pain men, vaginal bleeding, weakness, fever, dyspnea, syncope, headache, dizziness, GI bleed, back pain, seizure, CVA, palpatations, mental health, musculoskeletal)? @ -Differential Altered Mental Status: Hypoglycemia, DKA, hypercapnia, ETOH, overdose, CO poisoning, trauma, myxedema coma, HTN encephalopathy, infection, encephalitis, psychosis, intercranial hemorrhage, hepatic encephalopathy, meningitis, CVA, this is not meant to be an all-inclusive list EKG interpreted by me (3pts min.). @ -None X-rays interpreted by me (1pt min.). @ -None done CT interpreted by me (1pt min.). @ -None done U/S interpreted by me (1pt. min.). @ -None done What testing was considered but not performed or refused? (CT, X-rays, U/S, labs)? Why? @ -None What meds were considered but not given or refused? Why? @ -None Did you discuss the management of the patient with other professionals (professionals i.e. , PA, TOOL ROOM GEAR MACHINE OPERATOR, lab, RT, psych nurse, manager social media, seal delivery vehicle officer, teacher, ship officer, case worker)? Give summary @ -No Was smoking cessation discussed for >3mins.? @ -No Was critical care preformed (if so, how long)? @ -No Were there social determinants of health that impacted care today? How? (Homelessness, low income, unemployed, alcoholism, drug addiction, transportation, low edu. Level, literacy, decrease access to med. care, residential, rehab)? @ -No Was there de-escalation of care discussed even if they declined (Discuss DNR or withdrawal of care, Hospice)? DNR status @ -No What co-morbidities impacted this encounter? (DM, HTN, Smoking, COPD, CAD, Cancer, CVA, ARF, Chemo, Hep., AIDS, mental health diagnosis, sleep apnea, morbid obesity)? @ -None Was patient admitted / discharged? Hospital course, mention meds given and route, prescriptions, significant lab abnormalities, going to OR and other pertinent info. @ -Admission 42-year-old male presenting via EMS secondary to being found drunk, stumbling at a convenience store earlier today. At this time secondary to intoxication ambreen xie unable to provide history. Laboratory studies reviewed. CBC largely unremarkable. CMP shows some transaminities with AST 114, ALT 62, Alk phos 131. Protein 8.6. Alcohol significantly elevated at 444. Patient will be admitted secondary to significant intoxication with alcohol at 444. Undiagnosed new problem with uncertain prognosis? @ -No Drug Therapy requiring intensive monitoring for toxicity (Heparin, Nitro, Insulin, Cardizem)? @ -No Were any procedures done? @ -No Diagnosis/symptom? @ -Alcohol abuse Acute, or Chronic, or Acute on Chronic? @ -Acute on chronic Uncomplicated (without systemic symptoms) or Complicated (systemic symptoms)? @ -Uncomplicated Side effects of treatment? @ -No Exacerbation, Progression, or Severe Exacerbation? @ -No Poses a threat to life or bodily function? How? (Chest pain, [place], [place], pneumonia, PE, COPD, DKA, ARF, appy, cholecystitis, CVA, Diverticulitis, Homicidal, Suicidal, threat to staff... and all critical care pts) @ -No - Lab Data Result diagrams: 10/15/23 02:04 10/15/23 02:04 Lab Results 10/15/23 10/15/23 Range/Units 02:04 02:04 WBC 3.7 L (3.8-10.6) k/uL RBC 4.48 (4.30-5.90) m/uL Hgb 13.0 (13.0-17.5) gm/dL Hct 41.3 (39.0-53.0) % MCV 92.2 (80.0-100.0) fL MCH 29.1 (25.0-35.0) pg MCHC 31.6 (31.0-37.0) g/dL RDW 17.2 H (11.5-15.5) % Plt Count 110 L (150-450) k/uL MPV 9.2 Neutrophils % (Manual) 30 % Lymphocytes % (Manual) 55 % Monocytes % (Manual) 13 % Eosinophils % (Manual) 2 % Neutrophils # (Manual) 1.11 L (1.3-7.7) k/uL Lymphocytes # (Manual) 2.04 (1.0-4.8) k/uL Monocytes # (Manual) 0.48 (0-1.0) k/uL Eosinophils # (Manual) 0.07 (0-0.7) k/uL Nucleated RBCs 0 (0-0) /100 WBC Manual Slide Review Performed Anisocytosis Slight Sodium 144 (137-145) mmol/L Potassium 4.5 (3.5-5.1) mmol/L Chloride 105 (98-107) mmol/L Carbon Dioxide 24 (22-30) mmol/L Anion Gap 15 mmol/L BUN 5 L (9-20) mg/dL Creatinine 0.61 L (0.66-1.25) mg/dL Est GFR (CKD-EPI)AfAm >90 (>60 ml/min/1.73 sqM) Est GFR (CKD-EPI)NonAf >90 (>60 ml/min/1.73 sqM) Glucose 97 (74-99) mg/dL Calcium 8.7 (8.4-10.2) mg/dL Total Bilirubin 1.2 (0.2-1.3) mg/dL AST 114 H (17-59) U/L ALT 62 H (4-49) U/L Alkaline Phosphatase 131 H (38-126) U/L Total Protein 8.6 H (6.3-8.2) g/dL Albumin 4.1 (3.5-5.0) g/dL Serum Alcohol 444 H* mg/dL Disposition Clinical Impression: ETOH abuse Disposition: ADMITTED IP TO THIS HOSP Condition: Good Referrals: Luis Cho MD [Primary Care Provider] - 1-2 days Time of Disposition: 03:44
[2023-10-15 02:30] LABS: ALT 62 U/L (4-49); AST 114 U/L (17-59); African American GFR (CKD) >90 (>60 ml/min/1.73 sqM); Albumin 4.1 g/dL (3.5-5.0); Alkaline Phosphatase 131 U/L (38-126); Anion Gap 15 mmol/L; Blood Urea Nitrogen 5 mg/dL (9-20); Calcium 8.7 mg/dL (8.4-10.2); Carbon Dioxide 24 mmol/L (22-30); Chloride 105 mmol/L (98-107); Glucose 97 mg/dL (74-99); Non-African American GFR(CKD) >90 (>60 ml/min/1.73 sqM); Potassium 4.5 mmol/L (3.5-5.1); Sodium 144 mmol/L (137-145); Total Bilirubin 1.2 mg/dL (0.2-1.3); Total Protein 8.6 g/dL (6.3-8.2)
[2023-10-15 02:43] LABS: Alcohol 444 mg/dL
[2023-10-15 02:54] LABS: Anisocytosis Slight; HCT 41.3 % (39.0-53.0); MCH 29.1 pg (25.0-35.0); MCHC 31.6 g/dL (31.0-37.0); MCV 92.2 fL (80.0-100.0); Mean Platelet Volume 9.2; Platelet Count 110 k/uL (150-450); RBC 4.48 m/uL (4.30-5.90); RDW 17.2 % (11.5-15.5); WBC 3.7 k/uL (3.8-10.6)
[2023-10-15 03:15] LABS: Eosinophils # (M) 0.07 k/uL (0-0.7); Lymphocytes # (M) 2.04 k/uL (1.0-4.8); Monocytes # (M) 0.48 k/uL (0-1.0); Neutrophils # (M) 1.11 k/uL (1.3-7.7); Neutrophils % (M) 30 %; Nucleated Red Blood Cells 0 /100 WBC (0-0); Total Cells Counted 100
[2023-10-15] MEDS ORDERED: THIAMINE 100 MG/ML 2 ML VIAL IM STA (03:25)
[2023-10-15] MEDS ORDERED: LORazepam 2 MG/ML INJ IV PRN ×2 (03:25)
[2023-10-15] MEDS ORDERED: NALOXONE 0.4 MG/ML 1 ML VIAL IV PRN (05:41)
[2023-10-15 08:30] LABS: Appearance,Urine Clear (Clear); Bilirubin,Urine Negative (Negative); Blood,Urine Negative (Negative); Color,Urine Colorless; Glucose,Urine (UA) Negative (Negative); Ketones,Urine Negative (Negative); Leukocyte Esterase,Urine Negative (Negative); Nitrite,Urine Negative (Negative); PH, Urine 5.5 (5.0-8.0); Protein,Urine Negative (Negative); Specific Gravity,Urine 1.005 (1.001-1.035); Urobilinogen,Urine <2.0 mg/dL (<2.0)
[2023-10-15] MEDS: SODIUM CHLORIDE 0.9% 1,000 ML IV SCH ×2 (11:48→20:19)
[2023-10-15] MEDS: MULTIVITAMINS, THERA 1 EACH TAB PO SCH (11:48)
--- NOTE | 2023-10-15 20:50 | HP ---
HISTORY AND PHYSICAL CHIEF COMPLAINT: Acute alcohol intoxication. HISTORY OF PRESENT ILLNESS: This is another admission for this gentleman. He just left the hospital yesterday or the day before after being admitted for acute alcohol intoxication. REVIEW OF SYSTEMS: Unobtainable. Past medical history, family history, personal and social histories are all unchanged from his recent admitting and discharge summaries. He does not take any medication. PHYSICAL EXAMINATION: HEAD, EARS, EYES, NOSE, MOUTH, AND THROAT: Normal. CHEST: Clear. CARDIAC: Normal. ABDOMEN: Soft, nontender. NEUROLOGICAL: He is intact. VITAL SIGNS: Normal. IMPRESSION: 1. Acute alcohol intoxication. 2. Chronic alcoholism. 3. Alcohol-related seizure disorder. PLAN: 1. Bedrest. 2. IV fluids. 3. WA protocol. ILIR / EDAURDO: [id number] /
[2023-10-16] MEDS: LORazepam 2 MG/ML INJ IV PRN ×2 (00:21→10:03)
[2023-10-16] MEDS: MULTIVITAMINS, THERA 1 EACH TAB PO SCH (08:21)
[2023-10-16] MEDS: SODIUM CHLORIDE 0.9% 1,000 ML IV SCH ×2 (08:22→22:53)
[2023-10-16] MEDS: MELATONIN 3 MG TABLET PO SCH (21:13)
--- NOTE | 2023-10-16 22:32 | PN ---
PROGRESS NOTE DATE OF SERVICE: 10/16/2023 CHIEF COMPLAINT: Acute alcohol intoxication and DTs. HISTORY OF PRESENT ILLNESS: This gentleman is doing a little bit better. He denies abdominal pain. He is still a little bit nauseated. PHYSICAL EXAMINATION: CHEST: Clear. CARDIAC: Normal. ABDOMEN: Soft, nontender. IMPRESSION: 1. Acute alcohol intoxication with alcohol poisoning. 2. Chronic alcoholism. 3. Cirrhosis. PLAN: 1. Continue with CIWI protocol. 2. Melatonin for sleep. MMODL / IJN: [id number] /
[2023-10-17] MEDS: MULTIVITAMINS, THERA 1 EACH TAB PO SCH (09:23)
[2023-10-17] MEDS: SODIUM CHLORIDE 0.9% 1,000 ML IV SCH (10:43)
[2023-10-17 21:24] VITALS: RESP 16
[2023-10-18] MEDS: MELATONIN 3 MG TABLET PO SCH (01:12)
[2023-10-18] MEDS: SODIUM CHLORIDE 0.9% 1,000 ML IV SCH ×2 (03:54→18:00)
[2023-10-18] MEDS: MULTIVITAMINS, THERA 1 EACH TAB PO SCH (09:05)
[2023-10-18 14:45] VITALS: BP 151/98; PULSE 109; TEMP 98.9
--- NOTE | 2023-10-19 06:53 | DS ---
DISCHARGE SUMMARY CHIEF COMPLAINT: Acute alcohol intoxication. HISTORY OF PRESENT ILLNESS AND PHYSICAL EXAMINATION: Details of this man's history and physical can be found in the initial workup. LABORATORY STUDIES: While he was in the hospital, he had laboratory studies, details of which can be found in the laboratory section of his chart. COURSE IN THE HOSPITAL: He was placed on bedrest, started on the CIWA protocol. He did well. He did not go into DTs. He is doing well. It was felt he could be discharged on the . He will go home on his usual activity and diet and be followed up in the office. He does not take medications as prescribed when he leaves the hospital. FINAL DIAGNOSES: 1. Acute alcohol intoxication. 2. Chronic alcoholism. OPERATIONS: None. CONSULTATION: He is improved. ILIR / LILLIEN: [id number] /
--- NOTE | 2023-10-19 07:23 | PN ---
PROGRESS NOTE DATE OF SERVICE: 10/17/2023 CHIEF COMPLAINT: Acute alcohol intoxication. HISTORY OF PRESENT ILLNESS: This gentleman is doing fairly well. He is still somewhat lightheaded. He has not gone into DTs. He is complaining of some epigastric pain. PHYSICAL EXAMINATION: ABDOMEN: Slightly distended. There is no visceromegaly. He is slightly tender over the epigastrium. CHEST: Clear. CARDIAC: Normal. VITAL SIGNS: Normal. IMPRESSION: 1. Acute alcohol intoxication. 2. Chronic alcoholism. 3. Epigastric pain. 4. Probable alcoholic gastritis. PLAN: Advance diet. Increase activity. Hopefully home tomorrow. MMODL / IJN: [id number] /
== END 2023-10-18 20:25 | disposition home or self-care (01) ==
LOC: EC 01:19 → 6NMEDSUR 05:42
PROVIDERS: ADMIT Family Medicine; ATTEND Family Medicine
DX: F10.229 Alcohol dependence with intoxication, unspecified (principal); R56.9 Unspecified convulsions; K70.30 Alcoholic cirrhosis of liver without ascites; R10.13 Epigastric pain; I10 Essential (primary) hypertension; F41.9 Anxiety disorder, unspecified; Y90.8 Blood alcohol level of 240 mg/100 ml or more
CPT/HCPCS: 96376; 96361 ×2; 96372; 96374; 99285; 36415; 80053; 85025; 81003; 80320; G0378 ×5; J2060 ×2; J3411

== ENCOUNTER 2023-10-19 04:13 | Emergency (ER) | payer OTHER ==
[2023-10-19 04:52] VITALS: BP 118/81; PULSE 99; RESP 17; TEMP 97.3
[2023-10-19] MEDS ORDERED: INDOMETHACIN 25 MG CAP PO STA (06:34)
[2023-10-19] MEDS ORDERED: Acetaminophen-Codeine 300-30mg TAB PO STA (06:34)
[2023-10-19] MEDS ORDERED: diazePAM 5 MG TAB PO STA (06:34)
[2023-10-19] MEDS ORDERED: IBUPROFEN 600 MG STARTER PACK 4 TAB BTL PO STA (06:34)
[2023-10-19] MEDS ORDERED: ACET/COD 300 MG/30 MG STARTER PACK 6 TAB BTL PO STA (06:34)
--- NOTE | 2023-10-19 06:36 | ED ---
Alcohol HPI - General Chief Complaint: Alcohol Stated Complaint: Dizziness Time Seen by Provider: 10/19/23 06:22 Source: patient, RN notes reviewed, old records reviewed Mode of arrival: ambulatory Limitations: no limitations - History of Present Illness Initial Comments: This is a 42-year-old male well-known to this emergency room today. Patient comes in for evaluation of alcoholism with recent hospital admission for intoxication. Patient states he is concerned that he does not have any medications to help with withdrawal throughout home sleep to go to the store and drink a beer today. Patient has no other complaints MD Complaint: alcohol intoxication, alcohol withdrawal Last Drink: just DISPLAYER MERCHANDISE -: minute(s) Recent Trauma: Yes Treatments Prior to Arrival: none Chronic Alcohol Use: Yes - Related Data Previous Rx's Medication Instructions Recorded Thiamine [Vitamin B-1] 100 mg PO DAILY #60 tab 11/04/23 Allergies Allergy/AdvReac Type Severity Reaction Status Date / Time No Known Allergies Allergy Verified 10/29/23 08:16 Review of Systems ROS Statement: Those systems with pertinent positive or pertinent negative responses have been documented in the HPI. ROS Other: All systems not noted in ROS Statement are negative. Past Medical History Past Medical History: Hypertension, Pneumonia, Seizure Disorder Additional Past Medical History / Comment(s): ETOH History of Any Multi-Drug Resistant Organisms: None Reported Past Surgical History: Joint Replacement, Orthopedic Surgery Additional Past Surgical History / Comment(s): Right knee surgery, left leg incision and drainage for spider bite Past Anesthesia/Blood Transfusion Reactions: No Reported Reaction Past Psychological History: Anxiety, No Psychological Hx Reported Smoking Status: Current every day smoker Past Alcohol Use History: Abuse, Daily, Heavy Past Drug Use History: None Reported - Past Family History Sister(s) Family Medical History: Diabetes Mellitus Mother Family Medical History: Diabetes Mellitus Additional Family Medical History / Comment(s): from sudhakar johnsons syndrome Father Family Medical History: Diabetes Mellitus, Myocardial Infarction ([place]) Additional Family Medical History / Comment(s): from dm complications General Exam Limitations: no limitations General appearance: alert, appears intoxicated, anxious Head exam: Present: atraumatic, normocephalic, normal inspection Eye exam: Present: normal appearance, PERRL, EOMI. Absent: scleral icterus, conjunctival injection, periorbital swelling ENT exam: Present: normal exam, mucous membranes moist Neck exam: Present: normal inspection. Absent: tenderness, meningismus, lymphadenopathy Respiratory exam: Present: normal lung sounds bilaterally. Absent: respiratory distress, wheezes, rales, rhonchi, stridor Cardiovascular Exam: Present: regular rate, normal rhythm, normal heart sounds. Absent: systolic murmur, diastolic murmur, rubs, gallop, clicks GI/Abdominal exam: Present: soft, normal bowel sounds. Absent: distended, tenderness, guarding, rebound, rigid Extremities exam: Present: normal inspection, full ROM, normal capillary refill. Absent: tenderness, pedal edema, joint swelling, calf tenderness Back exam: Present: normal inspection Neurological exam: Present: alert, oriented X3, CN II-XII intact Psychiatric exam: Present: normal affect, normal mood Skin exam: Present: warm, dry, intact, normal color. Absent: rash Course Vital Signs 10/19/23 04:26 Temperature 97.3 F L Pulse Rate 99 Respiratory 17 Rate Blood Pressure 118/81 O2 Sat by Pulse 99 Oximetry - Reevaluation(s) Reevaluation #1: Record is reviewed Reevaluation #2: patients symptoms are improved Reevaluation #3: Patient informed results and questions answered Reevaluation #4: Was pt. sent in by a medical professional or institution (, PA, HELPER METAL HANGING, urgent care, hospital, or residential...) When possible be specific @ -no Did you speak to anyone other than the patient for history (EMS, parent, family, police, friend...)? What history was obtained from this source @ -no Did you review nursing and triage notes (agree or disagree)? Why? @ -agree Are old charts reviewed (outside hosp., previous admission, EMS record, old EKG, old radiological studies, urgent care reports/EKG's, residential records)? Report findings @ -yes Differential Diagnosis (chest pain, altered mental status, abdominal pain women, abdominal pain men, vaginal bleeding, weakness, fever, dyspnea, syncope, headache, dizziness, GI bleed, back pain, seizure, CVA, palpatations, mental health, musculoskeletal)? @ -prior EKG interpreted by me (3pts min.). @ -no X-rays interpreted by me (1pt min.). @ -no CT interpreted by me (1pt min.). @ -no U/S interpreted by me (1pt. min.). @ -no What testing was considered but not performed or refused? (CT, X-rays, U/S, labs)? Why? @ -none What meds were considered but not given or refused? Why? @ -none Did you discuss the management of the patient with other professionals (professionals i.e. , PA, HELPER METAL HANGING, lab, RT, psych nurse, director social, spindle sander, teacher, chief risk officer, leather case finisher)? Give summary @ -no Was smoking cessation discussed for >3mins.? @ -no Were there social determinants of health that impacted care today? How? (Homelessness, low income, unemployed, alcoholism, drug addiction, transportation, low edu. Level, literacy, decrease access to med. care, residential, rehab)? @ -none Was there de-escalation of care discussed even if they declined (Discuss DNR or withdrawal of care, Hospice)? DNR status @ -no What co-morbidities impacted this encounter? (DM, HTN, Smoking, COPD, CAD, Cancer, CVA, ARF, Chemo, Hep., AIDS, mental health diagnosis, sleep apnea, morbid obesity)? @ -none Was patient admitted / discharged? Hospital course, mention meds given and route, prescriptions, significant lab abnormalities, going to OR and other pertinent info. @ - 42 male to the ER today for evaluation presents today for evaluation of alcohol intoxication versus pending alcohol withdrawal. Patient otherwise feeling well without complaint. Patient can be discharged home Discharge Was critical care preformed (if so, how long)? @ -no Undiagnosed new problem with uncertain prognosis? @ -no Drug Therapy requiring intensive monitoring for toxicity (Heparin, Nitro, Insulin, Cardizem)? @ -no Were any procedures done? @ -no Diagnosis/symptom? @ -Alcohol intoxication versus pending alcohol withdrawal Acute, or Chronic, or Acute on Chronic? @ -Acute Uncomplicated (without systemic symptoms) or Complicated (systemic symptoms)? @ -Complicated Side effects of treatment? @ -no Exacerbation, Progression, or Severe Exacerbation? @ -exacerbation Poses a threat to life or bodily function? How? (Chest pain, [place], [place], pneumonia, PE, COPD, DKA, ARF, appy, cholecystitis, CVA, Diverticulitis, Homicidal, Suicidal, threat to staff... and all critical care pts) @ -yes Reevaluation #5: 11/02/23 22:11 Differential Altered Mental Status: Hypoglycemia, DKA, hypercapnia, ETOH, overdose, CO poisoning, trauma, myxedema coma, HTN encephalopathy, infection, encephalitis, psychosis, intercranial hemorrhage, hepatic encephalopathy, meningitis, CVA, this is not meant to be an all-inclusive list Medical Decision Making - Medical Decision Making 42 male to the ER today for evaluation presents today for evaluation of alcohol intoxication versus pending alcohol withdrawal. Patient otherwise feeling well without complaint. Patient can be discharged home Disposition Clinical Impression: Alcohol withdrawal syndrome, ETOH abuse, Gout Disposition: HOME SELF-CARE Condition: Good Instructions (If sedation given, give patient instructions): Gout (ED), Alcohol Withdrawal (ED) Is patient prescribed a controlled substance at d/c from ED?: No Referrals: Luis Cho MD [Primary Care Provider] - 1-2 days Time of Disposition: 06:30
== END 2023-10-19 15:24 | disposition home or self-care (01) ==
LOC: EC 04:13
DX: M10.9 Gout, unspecified (principal); F10.129 Alcohol abuse with intoxication, unspecified; F10.139 Alcohol abuse with withdrawal, unspecified; I10 Essential (primary) hypertension; F17.200 Nicotine dependence, unspecified, uncomplicated; Z86.59 Personal history of other mental and behavioral disorders
CPT/HCPCS: 99284

== ENCOUNTER 2023-10-29 00:33 | Inpatient (IN) | payer OTHER ==
[2023-10-29 00:44] LABS: Glucose,Whole Blood 75 mg/dL (70-110)
[2023-10-29 00:58] LABS: Anisocytosis Slight; Basophils # (A) 0.1 k/uL (0-0.2); Basophils % (A) 2 %; Eosinophils % (A) 1 %; HCT 44.3 % (39.0-53.0); HGB 14.4 gm/dL (13.0-17.5); Lymphocytes # (A) 2.5 k/uL (1.0-4.8); Lymphocytes % (A) 51 %; MCH 29.7 pg (25.0-35.0); MCHC 32.4 g/dL (31.0-37.0); MCV 91.4 fL (80.0-100.0); Mean Platelet Volume 7.9; Monocytes # (A) 0.2 k/uL (0-1.0); Monocytes % (A) 5 %; Neutrophils # (A) 1.9 k/uL (1.3-7.7); Neutrophils % (A) 38 %; RBC 4.84 m/uL (4.30-5.90); RDW 17.1 % (11.5-15.5); WBC 4.9 k/uL (3.8-10.6)
[2023-10-29] MEDS: SODIUM CHLORIDE 0.9% 1,000 ML IV ONE (01:06)
[2023-10-29] MEDS: levETIRAcetam IV 500 MG/5 ML VIAL IVP STA (01:06)
[2023-10-29 01:10] LABS: Partial Thromboplastin Time 23.9 sec (22.0-30.0); Prothrombin Time 10.8 sec (10.0-12.5)
[2023-10-29 01:14] LABS: ALT 114 U/L (4-49); AST 298 U/L (17-59); African American GFR (CKD) >90 (>60 ml/min/1.73 sqM); Alkaline Phosphatase 145 U/L (38-126); Anion Gap 21 mmol/L; Blood Urea Nitrogen 11 mg/dL (9-20); Calcium 9.4 mg/dL (8.4-10.2); Carbamazepine (Tegretol) <3.0 ug/mL; Carbon Dioxide 16 mmol/L (22-30); Chloride 99 mmol/L (98-107); Glucose 82 mg/dL (74-99); Lithium <0.2 mmol/L; Magnesium 1.8 mg/dL (1.6-2.3); Non-African American GFR(CKD) >90 (>60 ml/min/1.73 sqM); Phenytoin (Dilantin) <3.0 ug/mL; Potassium 4.5 mmol/L (3.5-5.1); Sodium 136 mmol/L (137-145); Total Protein 10.5 g/dL (6.3-8.2)
[2023-10-29 01:16] LABS: Valproic Acid (Depakene) <10.0 ug/mL
[2023-10-29 01:20] LABS: Alcohol 399 mg/dL
[2023-10-29 01:45] LABS: Platelet Count 171 k/uL (150-450)
[2023-10-29] MEDS: MORPHINE SULFATE 2 MG/ML SYRINGE IV STA (02:26)
--- NOTE | 2023-10-29 02:39 | CT ---
EXAM: CT Head Without Intravenous Contrast CLINICAL HISTORY: ITS.REASON CT Reason: cough TECHNIQUE: Axial computed tomography images of the head/brain without intravenous contrast. CTDI is 45.3 mGy and DLP is 1151 mGy-cm. This CT exam was performed using one or more of the following dose reduction techniques: automated exposure control, adjustment of the mA and/or kV according to patient size, and/or use of iterative reconstruction technique. COMPARISON: Head CT 10/12/23. FINDINGS: Brain: No mass effect or acute infarct. No acute hemorrhage. Ventricles: No hydrocephalus or midline shift. Bones/joints: No skull fracture. Soft tissues: No scalp hematoma. Sinuses: Clear. Mastoid air cells: No mastoid effusion. IMPRESSION: 1. No acute intracranial abnormality or interval change. EXAM: CT Cervical Spine Without Intravenous Contrast CLINICAL HISTORY: ITS.REASON CT Reason: cough TECHNIQUE: Axial computed tomography images of the cervical spine without intravenous contrast. CTDI is 10.7 mGy and DLP is 350.2 mGy-cm. This CT exam was performed using one or more of the following dose reduction techniques: automated exposure control, adjustment of the mA and/or kV according to patient size, and/or use of iterative reconstruction technique. COMPARISON: CT cervical spine 10/12/23. FINDINGS: Vertebrae: Unremarkable. No acute fracture. Discs/spinal canal/neural foramina: Normal for age. No change.. Soft tissues: Unremarkable. IMPRESSION: 1. No fracture or interval change. 2. Normal patient's age group.
[2023-10-29] MEDS ORDERED: NALOXONE 0.4 MG/ML 1 ML VIAL IV PRN (02:49)
--- NOTE | 2023-10-29 02:49 | ED ---
General Adult HPI - General Chief complaint: Fall Stated complaint: Fall Time Seen by Provider: 10/29/23 00:39 Source: patient, EMS, RN notes reviewed, old records reviewed Mode of arrival: EMS - History of Present Illness Initial comments: Patient is a 42-year-old male who presents with department for a fall and patient is acutely intoxicated. Is a frequent visitor to our emergency department for alcohol intoxication. Also thinks he may have a history of seizures but states he is not on any medications. None are listed in his chart. Poor historian as to whether these seizures are secondary to alcohol abuse or not. Currently endorses some chronic left knee pain, as well as generalized body aches. Thinks he may have Covid. Does not believe he lost consciousness. Has no other acute complaints at this time. Denies any nausea or vomiting. Is not on blood thinners. Presents for further evaluation.he states he fell multiple times from standing position. Unknown if he syncopized or not. Is not on blood thinners. Unknown loss consciousness. - Related Data Previous Rx's Medication Instructions Recorded Multivitamins, Thera [Multivitamin 1 each PO DAILY tab 10/18/23 (formulary)] LORazepam [Ativan] 1 mg PO TID 3 Days #9 tab 10/19/23 Allergies Allergy/AdvReac Type Severity Reaction Status Date / Time No Known Allergies Allergy Verified 10/29/23 00:43 Review of Systems ROS Statement: Those systems with pertinent positive or pertinent negative responses have been documented in the HPI. Review of Systems: CONST: Denies fever EYES: Denies blurry vision ENT: Denies nasal congestion C/V: Denies Chest pain RESP: Denies shortness of breath GI: Denies abdominal pain : Denies dysuria SKIN: Denies rash. MSK: Endorses joint pain NEURO: Denies headache ROS Other: All systems not noted in ROS Statement are negative. Past Medical History Past Medical History: Hypertension, Pneumonia, Seizure Disorder Additional Past Medical History / Comment(s): ETOH History of Any Multi-Drug Resistant Organisms: None Reported Past Surgical History: Joint Replacement, Orthopedic Surgery Additional Past Surgical History / Comment(s): Right knee surgery, left leg incision and drainage for spider bite Past Anesthesia/Blood Transfusion Reactions: No Reported Reaction Past Psychological History: Anxiety, No Psychological Hx Reported Smoking Status: Current every day smoker Past Alcohol Use History: Abuse, Daily, Heavy Past Drug Use History: None Reported - Past Family History Sister(s) Family Medical History: Diabetes Mellitus Mother Family Medical History: Diabetes Mellitus Additional Family Medical History / Comment(s): from sudhakar johnsons syndrome Father Family Medical History: Diabetes Mellitus, Myocardial Infarction (MA) Additional Family Medical History / Comment(s): from dm complications General Exam - General Exam Comments Initial Comments: General: Appears in no acute distress. Smells of alcohol. HEAD: Normal with no signs of head trauma. Negative mueller sign. Negative raccoon eyes. EYES: PERRLA, EOMI, conjunctiva normal, no discharge. Pupils 3 mm and equal bilaterally. ENT: Hearing grossly intact, normal oropharynx. RESPIRATORY: Clear breath sounds bilaterally. No wheezes, rales, or rhonchi. C/V: Regular rate and rhythm. S1 and S2 auscultated, peripheral pulses 2+ and intact throughout ABD: Abd is soft, nontender, nondistended EXT: Normal range of motion, no obvious deformity. Trace palpation over the left knee. No midline cervical, thoracic, lumbar spine tenderness palpation. No step-offs or deformities of the spine. Pelvis is stable. SKIN: No rashes or lesions observed on exposed skin. NEURO: Alert and oriented x 4. GCS of 15.No evidence of alcohol withdrawal at this time. Course Vital Signs 10/29/23 10/29/23 10/29/23 00:34 02:00 04:05 Temperature 98.9 F Pulse Rate 109 H 102 H 107 H Respiratory 18 16 17 Rate Blood Pressure 143/103 107/63 100/72 O2 Sat by Pulse 97 91 L 94 L Oximetry Medical Decision Making - Medical Decision Making Was pt. sent in by a medical professional or institution (, PA, CARROTING MACHINE OPERATOR, urgent care, hospital, or halfway...) When possible be specific @ -No Did you speak to anyone other than the patient for history (EMS, parent, family, police, friend...)? What history was obtained from this source @ -EMS provided additional past medical history from the patient, including the story that was told to them. Did you review nursing and triage notes (agree or disagree)? Why? @ -I reviewed and agree with nursing and triage notes Were old charts reviewed (outside hosp., previous admission, EMS record, old EKG, old radiological studies, urgent care reports/EKG's, halfway records)? Report findings @ -Old charts reviewed Differential Diagnosis (chest pain, altered mental status, abdominal pain women, abdominal pain men, vaginal bleeding, weakness, fever, dyspnea, syncope, headache, dizziness, GI bleed, back pain, seizure, CVA, palpatations, mental health, musculoskeletal)? @ -Differential Musculoskeletal Muscular strain, contusion, ligament sprain, fracture, arthritis, septic arthritis, bursitis, cellulitis, muscle spasm, nerve compression, DVT, arterial occlusion, herpes zoster, electrolyte abnormality, tumor.... This is not meant to be in all inclusive list EKG interpreted by me (3pts min.). @ -As above X-rays interpreted by me (1pt min.). @ -Chest, pelvis, knee x-rays unremarkable. No obvious traumatic injury. CT interpreted by me (1pt min.). @ -CT brain, C-spine reveals no obvious acute traumatic injury and no acute intracranial process. U/S interpreted by me (1pt. min.). @ -None done What testing was considered but not performed or refused? (CT, X-rays, U/S, labs)? Why? @ -None What meds were considered but not given or refused? Why? @ -None Did you discuss the management of the patient with other professionals (professionals i.e. , PA, CARROTING MACHINE OPERATOR, lab, RT, psych nurse, social media campaign manager, paperhanger and painter, teacher, dog license officer supervisor, family independence case manager)? Give summary @ -Discussed with Dr. Cho who accepted the admission. Was smoking cessation discussed for >3mins.? @ -No Was critical care preformed (if so, how long)? @ -No Were there social determinants of health that impacted care today? How? (Homelessness, low income, unemployed, alcoholism, drug addiction, transportation, low edu. Level, literacy, decrease access to med. care, alf, rehab)? @ -No Was there de-escalation of care discussed even if they declined (Discuss DNR or withdrawal of care, Hospice)? DNR status @ -No What co-morbidities impacted this encounter? (DM, HTN, Smoking, COPD, CAD, Cancer, CVA, ARF, Chemo, Hep., AIDS, mental health diagnosis, sleep apnea, morbid obesity)? @ -None Was patient admitted / discharged? Hospital course, mention meds given and route, prescriptions, significant lab abnormalities, going to OR and other pertinent info. @ -Based on the patient's presentation and physical exam, patient presents after a fall and is acutely toxic alcohol. Possible syncope versus possible seizure. No obvious evidence of alcohol withdrawal to this time. We will obtain CT brain, C-spine, x-rays of the left knee, chest, pelvis. Basic labs also be obtained. Patient in agreement this plan. He presents with a cervical collar in place however he takes off on his own and does not want. He will be symptomatically treated with IV fluids, morphine. He was in agreement this plan. Vital signs within acceptable limits. Imaging unremarkable. EKG shows no signs of acute ischemia. Patient is elevated LFTs in the setting of alcohol abuse. Patient is acutely intoxicated with an alcohol level 399. Patient is Covid positive. I'll give the patient. Due to his intoxication we will admit him to observation. He was in agreement this plan. I spoke with the admitting physician, Dr. Cho who accepted the admission. Will be continued on IV fluids. At time of admission, patient still shows no signs of alcohol withdrawal. He'll be placed on CIWA protocol. Undiagnosed new problem with uncertain prognosis? @ -No Drug Therapy requiring intensive monitoring for toxicity (Heparin, Nitro, Insulin, Cardizem)? @ -No Were any procedures done? @ -No Diagnosis/symptom? @ -Fall, alcohol intoxication, COVID-19 infection Acute, or Chronic, or Acute on Chronic? @ -Acute Uncomplicated (without systemic symptoms) or Complicated (systemic symptoms)? @ -Complicated. Side effects of treatment? @ -No Exacerbation, Progression, or Severe Exacerbation? @ -No Poses a threat to life or bodily function? How? (Chest pain, USA, MA, pneumonia, PE, COPD, DKA, ARF, appy, cholecystitis, CVA, Diverticulitis, Homicidal, Suicid al, threat to staff... and all critical care pts) @ -Possibly, yes - Lab Data Result diagrams: 10/29/23 00:50 10/29/23 00:50 Lab Results 10/29/23 10/29/23 10/29/23 Range/Units 00:43 00:50 00:50 WBC 4.9 (3.8-10.6) k/uL RBC 4.84 (4.30-5.90) m/uL Hgb 14.4 (13.0-17.5) gm/dL Hct 44.3 (39.0-53.0) % MCV 91.4 (80.0-100.0) fL MCH 29.7 (25.0-35.0) pg MCHC 32.4 (31.0-37.0) g/dL RDW 17.1 H (11.5-15.5) % Plt Count 171 D (150-450) k/uL MPV 7.9 Neutrophils % 38 % Lymphocytes % 51 % Monocytes % 5 % Eosinophils % 1 % Basophils % 2 % Neutrophils # 1.9 (1.3-7.7) k/uL Lymphocytes # 2.5 (1.0-4.8) k/uL Monocytes # 0.2 (0-1.0) k/uL Eosinophils # 0.0 (0-0.7) k/uL Basophils # 0.1 (0-0.2) k/uL Anisocytosis Slight PT 10.8 (10.0-12.5) sec INR 1.0 (<1.2) APTT 23.9 (22.0-30.0) sec Sodium (137-145) mmol/L Potassium (3.5-5.1) mmol/L Chloride (98-107) mmol/L Carbon Dioxide (22-30) mmol/L Anion Gap mmol/L BUN (9-20) mg/dL Creatinine (0.66-1.25) mg/dL Est GFR (CKD-EPI)AfAm (>60 ml/min/1.73 sqM) Est GFR (CKD-EPI)NonAf (>60 ml/min/1.73 sqM) Glucose (74-99) mg/dL POC Glucose (mg/dL) 75 (70-110) mg/dL POC Glu Promotions Team Leader ID [place], [place] Calcium (8.4-10.2) mg/dL Magnesium (1.6-2.3) mg/dL Total Bilirubin (0.2-1.3) mg/dL AST (17-59) U/L ALT (4-49) U/L Alkaline Phosphatase (38-126) U/L Total Protein (6.3-8.2) g/dL Albumin (3.5-5.0) g/dL Phenytoin ug/mL Valproic Acid ug/mL Carbamazepine ug/mL [place]err[place] mmol/L Serum Alcohol mg/dL Influenza Type A (PCR) (Not Detectd) Influenza Type B (PCR) (Not Detectd) RSV (PCR) (Not Detectd) SARS-CoV-2 (PCR) (Not Detectd) 10/29/23 10/29/23 Range/Units 00:50 00:54 WBC (3.8-10.6) k/uL RBC (4.30-5.90) m/uL Hgb (13.0-17.5) gm/dL Hct (39.0-53.0) % MCV (80.0-100.0) fL MCH (25.0-35.0) pg MCHC (31.0-37.0) g/dL RDW (11.5-15.5) % Plt Count (150-450) k/uL MPV Neutrophils % % Lymphocytes % % Monocytes % % Eosinophils % % Basophils % % Neutrophils # (1.3-7.7) k/uL Lymphocytes # (1.0-4.8) k/uL Monocytes # (0-1.0) k/uL Eosinophils # (0-0.7) k/uL Basophils # (0-0.2) k/uL Anisocytosis PT (10.0-12.5) sec INR (<1.2) APTT (22.0-30.0) sec Sodium 136 L (137-145) mmol/L Potassium 4.5 (3.5-5.1) mmol/L Chloride 99 (98-107) mmol/L Carbon Dioxide 16 L (22-30) mmol/L Anion Gap 21 mmol/L BUN 11 (9-20) mg/dL Creatinine 0.97 (0.66-1.25) mg/dL Est GFR (CKD-EPI)AfAm >90 (>60 ml/min/1.73 sqM) Est GFR (CKD-EPI)NonAf >90 (>60 ml/min/1.73 sqM) Glucose 82 (74-99) mg/dL POC Glucose (mg/dL) (70-110) mg/dL POC Glu Promotions Team Leader ID Calcium 9.4 (8.4-10.2) mg/dL Magnesium 1.8 (1.6-2.3) mg/dL Total Bilirubin 1.0 (0.2-1.3) mg/dL AST 298 H (17-59) U/L ALT 114 H (4-49) U/L Alkaline Phosphatase 145 H (38-126) U/L Total Protein 10.5 H (6.3-8.2) g/dL Albumin 5.0 (3.5-5.0) g/dL Phenytoin <3.0 ug/mL Valproic Acid <10.0 ug/mL Carbamazepine <3.0 ug/mL Gerrard <0.2 mmol/L Serum Alcohol 399 H* mg/dL Influenza Type A (PCR) Not Detected (Not Detectd) Influenza Type B (PCR) Not Detected (Not Detectd) RSV (PCR) Not Detected (Not Detectd) SARS-CoV-2 (PCR) Detected A (Not Detectd) - EKG Data -: EKG Interpreted by Me EKG Comments: 12-lead Electrocardiogram Interpretation Note EKG was reviewed and interpreted by myself. 12-lead ECG performed at [facility] is interpreted by me as revealing normal sinus rhythm at a rate of 91 beats per minute. [place] is normal. [place] interval is 136 ms, QRS duration is 122 ms, EDC is 408 ms.. There were no ST or T wave abnormalities to suggest myocardial ischemia or injury. R wave progression across the precordium was satisfactory. By my interpretation this EKG is non-diagnostic for acute ischemia. Disposition Clinical Impression: COVID-19, Alcohol intoxication, Fall Disposition: ADMITTED IP TO THIS HOSP Condition: Stable Time of Disposition: 02:48
[2023-10-29] MEDS ORDERED: LORazepam 2 MG/ML INJ IV PRN (02:50)
--- NOTE | 2023-10-29 03:51 | XR ---
EXAM: XR Pelvis, 1 or 2 Views CLINICAL HISTORY: ITS.REASON XR Reason: cough TECHNIQUE: Frontal view of the pelvis. COMPARISON: No relevant prior studies available. FINDINGS: Bones/joints: No acute fracture. No dislocation. Soft tissues: Unremarkable. IMPRESSION: No acute findings.
--- NOTE | 2023-10-29 03:57 | XR ---
EXAM: XR Chest, 1 View CLINICAL HISTORY: ITS.REASON XR Reason: cough TECHNIQUE: Frontal view of the chest. COMPARISON: No relevant prior studies available. FINDINGS: Lungs: No consolidation or mass. Pleural space: No acute findings Heart: cardiomegaly. Bones/joints: No acute findings. IMPRESSION: No acute cardiopulmonary process.
[2023-10-29] MEDS: SODIUM CHLORIDE 0.9% 1,000 ML IV SCH (03:59)
--- NOTE | 2023-10-29 04:00 | XR ---
EXAM: XR Left Knee CLINICAL HISTORY: ITS.REASON XR Reason: pain TECHNIQUE: 2 views of the left knee. COMPARISON: No relevant prior studies available. FINDINGS: Bones/joints: No acute fracture. No dislocation. Soft tissues: Unremarkable. IMPRESSION: No acute osseous abnormalities.
[2023-10-29] MEDS: THIAMINE 100 MG/ML 2 ML VIAL IM STA (04:02)
--- NOTE | 2023-10-29 20:44 | HP ---
HISTORY AND PHYSICAL CHIEF COMPLAINT: Acute alcohol intoxication, fall. HISTORY OF PRESENT ILLNESS: This is another recent admission for this 42-year-old white male, who has been in and out of the hospital almost every week or 2 for the last few months for acute alcohol intoxication. Came back in and intoxicated having had a fall. Evaluation in the emergency room was negative. REVIEW OF SYSTEMS: Unobtainable. Past medical history, family history, and personal and social histories were all otherwise unobtainable and unchanged from his recent admitting and discharge summaries. He does not take any medications. He has had alcohol withdrawal seizures in the past. PHYSICAL EXAMINATION: VITAL SIGNS: Blood pressure 143/103, pulse of 90, respirations of 32, and he is afebrile. GENERAL: Appeared to be intoxicated. HEAD, EARS, EYES, NOSE, AND MOUTH: Appeared to be normal. Pupils are equal and round. NECK: Supple. CHEST: Clear. CARDIAC: Normal. ABDOMEN: Soft and nontender. EXTREMITIES: Normal. He was comatose and difficult to arouse him. IMPRESSION: 1. Acute alcohol intoxication. 2. Chronic alcoholism. 3. History of alcohol withdrawal seizures. PLAN: 1. Bed rest. 2. IV fluids. 3. [facility] protocol. MMODL / IJN: [id number] /
[2023-10-29] MEDS: LORazepam 2 MG/ML INJ IV PRN (23:11)
[2023-10-30] MEDS: THIAMINE 100 MG TAB PO SCH (08:43)
[2023-10-30 11:04] LABS: Basophils # (A) 0.01 X 10*3/uL (0.00-0.10); Basophils % (A) 0.3 %; Eosinophils # (A) 0.04 X 10*3/uL (0.04-0.35); Eosinophils % (A) 1.1 %; HCT 36.5 % (39.6-50.0); HGB 11.7 g/dL (13.0-17.0); Lymphocytes # (A) 1.25 X 10*3/uL (0.90-5.00); Lymphocytes % (A) 35.1 %; MCH 28.2 pg (27.0-32.0); MCHC 32.1 g/dL (32.0-37.0); Mean Platelet Volume 11.2 FL (9.5-12.2); Monocytes # (A) 0.41 X 10*3/uL (0.20-1.00); Monocytes % (A) 11.5 %; NRBC Per 100 WBC 0 X 10*3/uL (0.00-0.01); Neutrophils # (A) 1.83 X 10*3/uL (1.80-7.70); Neutrophils % (A) 51.4 %; Platelet Count 116 X 10*3/uL (140-440); RBC 4.15 X 10*6/uL (4.40-5.60); RDW 17.5 % (11.5-14.5); WBC 3.56 X 10*3/uL (4.50-10.00)
[2023-10-30 11:18] LABS: BUN/Creat Ratio 6.38 Ratio (12.00-20.00); Blood Urea Nitrogen 5.1 mg/dL (9.0-27.0); Calcium 9.1 mg/dL (8.7-10.3); Carbon Dioxide 26.2 mmol/L (21.6-31.8); Chloride 97 mmol/L (96-109); Glucose 134 mg/dL (70-110); Potassium 3.9 mmol/L (3.5-5.5); Sodium 135 mmol/L (135-145)
--- NOTE | 2023-10-31 00:26 | PN ---
PROGRESS NOTE DATE OF SERVICE: 10/30/2023 CHIEF COMPLAINT: Acute alcohol intoxication. HISTORY OF PRESENT ILLNESS: This gentleman seems stable, but he is still toxicated and is always at a risk for DTs. PHYSICAL EXAMINATION: VITAL SIGNS: Normal. CHEST: Clear. CARDIAC: Normal. ABDOMEN: Soft, nontender. IMPRESSION: 1. Acute alcohol intoxication. 2. Chronic alcoholism. 3. Frequent falling. PLAN: Continue to monitor his neurologic status and watch for DTs. MMODL / IJN: [id number] /
[2023-10-31] MEDS: LORazepam 2 MG/ML INJ IV PRN (00:49)
--- NOTE | 2023-10-31 22:38 | PN ---
PROGRESS NOTE CHIEF COMPLAINT: Acute alcohol intoxication. HISTORY OF PRESENT ILLNESS: This gentleman is doing a bit better. He is a little bit more awake and alert. PHYSICAL EXAMINATION: CHEST: Clear. CARDIAC: Demonstrates sinus tachycardia. ABDOMEN: Soft, nontender. IMPRESSION: 1. Acute alcohol intoxication. 2. Chronic alcoholism. PLAN: Progress activity and probably home in the next day or 2. MMODL / IJN: [id number] /
[2023-11-02] MEDS: MELATONIN 3 MG TABLET PO SCH (20:00)
[2023-11-04 08:05] VITALS: RESP 20
--- NOTE | 2023-11-04 09:30 | CDI ---
Documentation Clarification Form Date: 11/04/2023 09:03:23 AM From: Paula Deras RN CCDS Phone: [phone] Admit Date: 10/29/2023 02:52:00 AM Patient Name: Lety Wallace Visit Number: [id number] Discharge Date: ATTENTION: The Clinical Documentation Specialists (CDI) and [facility] Coding Staff appreciate your assistance in clarifying documentation. Please respond to the clarification below the line at the bottom and electronically sign. The CDI & [facility] Coding staff will review the response and follow-up if needed. Please note: Queries are made part of the Legal Health Record. If you have any questions, please contact the author of this message via ITS. Dr. Luis Cho COVID 19 is documented 10/29, ED note which may lack sufficient clinical evidence/support in the medical record. Additional clarification is requested. History/Risk Factors: 42-year-old Male presented to ED for a fall, patient is acutely intoxicated with generalized body aches. Medical History: chronic left knee pain, Seizures secondary to alcohol abuse and HTN. 10/29, ED note. Clinical Indicators: 10/29: SARS-CoV-2 (PCR) Detected A Treatment: Droplet precautions Please clarify if COVID is a valid diagnosis? [ ] Yes, COVID 19 is positive but not actively treated [ ] COVID 19 false positive [ ] Other (please specify diagnosis) [ ] Unable to determine (Template Last Revised: December 2020) MTDD
[2023-11-04 14:43] VITALS: BMI 25.0
[2023-11-04 15:33] VITALS: BP 114/69; PULSE 107; TEMP 98
--- NOTE | 2023-11-06 19:33 | DS ---
DISCHARGE SUMMARY CHIEF COMPLAINT: Acute alcohol intoxication. HISTORY OF PRESENT ILLNESS AND PHYSICAL EXAMINATION: Details of this man's history and physical can be found in the initial workup. LABORATORY STUDIES: While he was in the hospital, he had laboratory studies, details of which can be found in the laboratory section of his chart. COURSE IN THE HOSPITAL: After admission, he was placed on bedrest, started on intravenous fluids and CIWA protocol. He remained intoxicated for several days, but did not go into DTs. He was stable and felt he could be discharged on the . He will go home on his usual medications and will be followed up in the office in several days. FINAL DIAGNOSES: 1. Acute alcohol intoxication. 2. Chronic alcoholism. OPERATIONS: None. CONSULTATION: None, he is improved. ILIR / EDUARDO: [id number] /
--- NOTE | 2023-11-07 07:22 | PN ---
PROGRESS NOTE DATE OF SERVICE: 11/03/2023 CHIEF COMPLAINT: Alcohol intoxication and DTs. HISTORY OF PRESENT ILLNESS: This gentleman is still lethargic and slightly nauseated. PHYSICAL EXAMINATION: VITAL SIGNS: Normal. CHEST: Clear. CARDIAC: Normal. IMPRESSION: 1. Acute alcohol intoxication. 2. Nausea. 3. Alcoholism. PLAN: Hold discharge for another day. MMODL / IJN: [id number] /
--- NOTE | 2023-11-07 07:52 | PN ---
PROGRESS NOTE DATE OF SERVICE: 11/02/2023 CHIEF COMPLAINT: Alcohol intoxication and DTs. HISTORY OF PRESENT ILLNESS: The gentleman is somewhat tremulous. He is not vomiting. Vital signs have been stable. PHYSICAL EXAMINATION: CHEST: Clear. CARDIAC: Exam is normal except for tachycardia of around 100. ABDOMEN: Soft and nontender. IMPRESSION: 1. Acute alcohol intoxication. 2. Chronic alcoholism. 3. Delirium tremens. 4. History of alcohol withdrawal seizures. PLAN: Continue to monitor and probably home tomorrow. MMODL / IJN: [id number] /
--- NOTE | 2023-11-07 08:16 | PN ---
PROGRESS NOTE DATE OF SERVICE: 11/01/2023 CHIEF COMPLAINT: Acute alcohol intoxication and DTs. HISTORY OF PRESENT ILLNESS: This gentleman is lethargic and he continues to have nausea and vomiting. PHYSICAL EXAMINATION: ABDOMEN: Flat, soft, nontender. CHEST: Clear. IMPRESSION: Acute alcohol intoxication with nausea and delirium tremens. PLAN: Continue with [facility] protocol. ILIR / LILLIEN: [id number] /
--- NOTE | 2023-11-26 22:49 | MISC ---
MISCELLANOUS REPORT COVID is positive, but not actively treated. MMODL / IJN: [id number] /
== END 2023-11-04 19:20 | disposition home or self-care (01) | DRG 775 ==
LOC: EC 00:33 → 4SSUR 02:51 → OBSVTOIN 02:52 → 4SSUR 16:02
PROVIDERS: ADMIT Family Medicine; ATTEND Family Medicine
PROC: HZ2ZZZZ Detoxification Services for Substance Abuse Treatment (ICD-10-PCS; principal; 2023-10-29)
DX: F10.229 Alcohol dependence with intoxication, unspecified (principal); F10.231 Alcohol dependence with withdrawal delirium; G40.909 Epilepsy, unspecified, not intractable, without status epilepticus; F17.210 Nicotine dependence, cigarettes, uncomplicated; G89.29 Other chronic pain; M25.562 Pain in left knee; R29.6 Repeated falls; W19.XXXA Unspecified fall, initial encounter; Y90.8 Blood alcohol level of 240 mg/100 ml or more; Z96.60 Presence of unspecified orthopedic joint implant; Z91.81 History of falling; Z86.16 Personal history of COVID-19
CPT/HCPCS: 36415; 70450; 71045; 72125; 72170; 80048; 80053; 80156; 80164; 80178; 80185; 80320; 83735; 85025; 85610; 85730; 87636; 93005; 96361; 96372; 96374; 96376; 99285

== ENCOUNTER 2023-11-13 03:09 | Emergency (ER) | payer OTHER ==
[2023-11-13 03:28] VITALS: RESP 18; TEMP 98.1
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
[2023-11-13] MEDS ORDERED: KETOROLAC 15 MG/ML 1 ML VIAL IM STA (04:40)
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
[2023-11-13 05:15] VITALS: BP 124/66; PULSE 89
== END 2023-11-13 05:08 | disposition home or self-care (01) ==
LOC: EC 03:09
DX: M79.641 Pain in right hand (principal); F10.129 Alcohol abuse with intoxication, unspecified; R00.0 Tachycardia, unspecified; I10 Essential (primary) hypertension; Z87.891 Personal history of nicotine dependence; Y04.0XXA Assault by unarmed brawl or fight, initial encounter
CPT/HCPCS: 71046; 99283

== ENCOUNTER 2023-11-14 07:03 | Emergency (ER) | payer OTHER ==
[2023-11-14 07:52] LABS: Anisocytosis Slight; Basophils # (A) 0.1 k/uL (0-0.2); Basophils % (A) 3 %; Eosinophils # (A) 0.1 k/uL (0-0.7); Eosinophils % (A) 1 %; HGB 13.5 gm/dL (13.0-17.5); Lymphocytes # (A) 2.4 k/uL (1.0-4.8); Lymphocytes % (A) 54 %; MCH 29.6 pg (25.0-35.0); MCHC 32.8 g/dL (31.0-37.0); MCV 90.2 fL (80.0-100.0); Mean Platelet Volume 7.3; Monocytes # (A) 0.3 k/uL (0-1.0); Monocytes % (A) 6 %; Neutrophils # (A) 1.4 k/uL (1.3-7.7); Neutrophils % (A) 32 %; Platelet Count 299 k/uL (150-450); RBC 4.55 m/uL (4.30-5.90); RDW 16.6 % (11.5-15.5); WBC 4.3 k/uL (3.8-10.6)
[2023-11-14 08:12] LABS: African American GFR (CKD) >90 (>60 ml/min/1.73 sqM); Anion Gap 17 mmol/L; Blood Urea Nitrogen 10 mg/dL (9-20); Calcium 9.1 mg/dL (8.4-10.2); Carbon Dioxide 21 mmol/L (22-30); Chloride 104 mmol/L (98-107); Glucose 83 mg/dL (74-99); Non-African American GFR(CKD) >90 (>60 ml/min/1.73 sqM); Sodium 142 mmol/L (137-145)
--- NOTE | 2023-11-14 08:16 | ED ---
General Adult HPI - General Chief complaint: Weakness Stated complaint: Weakness Time Seen by Provider: 11/14/23 07:14 Source: patient Mode of arrival: EMS Limitations: no limitations - History of Present Illness Initial comments: Dictation was produced using [employer] dictation software. please excuse any grammatical, word or spelling errors. Chief Complaint: 42-year-old homeless alcoholic male presents to the ER for generalized weakness joint pain History of Present Illness: Patient is a 42-year-old male brought in by EMS he was at his cousin's house. Patient allegedly homeless states that he does not have a place to stay because he is arguing with his significant other. States that he is feeling weak. He states that he has a history of gout. He was also diagnosed with COVID 1 week ago. Patient denies any shortness of breath or chest pain. States that he feels weak and that he might have COVID again. Denies any fever, chills or night sweats. The ROS documented in this emergency department record has been reviewed and confirmed by me. Those systems with pertinent positive or negative responses have been documented in the HPI. All other systems are other negative and/or noncontributory. - Related Data Previous Rx's Medication Instructions Recorded Thiamine [Vitamin B-1] 100 mg PO DAILY #60 tab 11/04/23 Allergies Allergy/AdvReac Type Severity Reaction Status Date / Time No Known Allergies Allergy Verified 11/13/23 03:20 Review of Systems ROS Statement: Those systems with pertinent positive or pertinent negative responses have been documented in the HPI. ROS Other: All systems not noted in ROS Statement are negative. Past Medical History Past Medical History: Hypertension, Pneumonia, Seizure Disorder Additional Past Medical History / Comment(s): ETOH History of Any Multi-Drug Resistant Organisms: None Reported Past Surgical History: Joint Replacement, Orthopedic Surgery Additional Past Surgical History / Comment(s): Right knee surgery, left leg incision and drainage for spider bite, jaw surgery 2018 Past Anesthesia/Blood Transfusion Reactions: No Reported Reaction Past Psychological History: Anxiety, No Psychological Hx Reported Smoking Status: Former smoker Past Alcohol Use History: Daily Past Drug Use History: None Reported - Past Family History Sister(s) Family Medical History: Diabetes Mellitus Mother Family Medical History: Diabetes Mellitus Additional Family Medical History / Comment(s): from sudhakar johnsons syndrome Father Family Medical History: Diabetes Mellitus, Myocardial Infarction ([place]) Additional Family Medical History / Comment(s): from dm complications General Exam - General Exam Comments Initial Comments: PHYSICAL EXAM: General Impression: Alert and oriented x3, not in acute distress HEENT: Normocephalic atraumatic, extra-ocular movements intact, pupils equal and reactive to light bilaterally, mucous membranes moist. Cardiovascular: Heart regular rate and rhythm Chest: Able to complete full sentences, no retractions, no tachypnea Abdomen: abdomen soft, non-tender, non-distended, no organomegaly Musculoskeletal: Pulses present and equal in all extremities, no peripheral edema Motor: no focal deficits noted Neurological: CN II-XII grossly intact, no focal motor or sensory deficits noted Skin: Intact with no visualized rashes Psych: Normal affect and mood Limitations: no limitations Course Vital Signs 11/14/23 11/14/23 07:10 10:32 Temperature 98 F Pulse Rate 96 105 H Respiratory 20 18 Rate Blood Pressure 135/79 121/77 O2 Sat by Pulse 98 95 Oximetry Medical Decision Making - Medical Decision Making Was pt. sent in by a medical professional or institution (, PA, PHLEBOTOMIST SUPERVISOR/INSTRUCTOR, urgent care, hospital, or alf...) When possible be specific @ -No Did you speak to anyone other than the patient for history (EMS, parent, family, police, friend...)? What history was obtained from this source @ -No Did you review nursing and triage notes (agree or disagree)? Why? @ -I reviewed and agree with nursing and triage notes Were old charts reviewed (outside hosp., previous admission, EMS record, old EKG, old radiological studies, urgent care reports/EKG's, alf records)? Report findings @ -No old charts were reviewed Differential Diagnosis (chest pain, altered mental status, abdominal pain women, abdominal pain men, vaginal bleeding, musculoskeletal, weakness, fever, dyspnea, syncope, headache, dizziness, GI bleed, back pain, seizure, CVA, palpatations, mental health)? @ -Differential Weakness: Hypoglycemia, shock, sepsis, hyponatremia, anemia, infection, NV, ETOH, adverse medicine reaction, overdose, stroke, this is not meant to be an all-inclusive list. EKG interpreted by me (3pts min.). @ -None done X-rays interpreted by me (1pt min.). @ -Chest x-ray shows no acute processes CT interpreted by me (1pt min.). @ -None done U/S interpreted by me (1pt. min.). @ -None done What testing was considered but not performed or refused? (CT, X-rays, U/S, labs)? Why? @ -None What meds were considered but not given or refused? Why? @ -None Did you discuss the management of the patient with other professionals (professionals i.e. , PA, PHLEBOTOMIST SUPERVISOR/INSTRUCTOR, lab, RT, psych nurse, social media manager, physical security engineer, teacher, disabilities services officer, caseworker protective services)? Give summary @ -No Was smoking cessation discussed for >3mins.? @ -No Was critical care preformed (if so, how long)? @ -No Were there social determinants of health that impacted care today? How? (Homelessness, low income, unemployed, alcoholism, drug addiction, trans portation, low edu. Level, literacy, decrease access to med. care, halfway, rehab)? @ -Homelessness, alcoholism Was there de-escalation of care discussed even if they declined (Discuss DNR or withdrawal of care, Hospice)? DNR status @ -No What co-morbidities impacted this encounter? (DM, HTN, Smoking, COPD, CAD, Cancer, CVA, ARF, Chemo, Hep., AIDS, mental health diagnosis, sleep apnea, morbid obesity)? @ -None Was patient admitted / discharged? Hospital course, mention meds given and route, prescriptions, significant lab abnormalities, going to OR and other pertinent info. @ -42-year-old male presents emergency department for weakness. Vital signs stable. Patient well-appearing at the bedside. Physical examination is benign. Alcohol level is 228. Basic labs are within acceptable limits. There is a very mild degree of alcoholic ketoacidosis. Viral testing negative. Patient observed emergency department sobriety and discharge. Undiagnosed new problem with uncertain prognosis? @ -No Drug Therapy requiring intensive monitoring for toxicity (Heparin, Nitro, Insulin, Cardizem)? @ -No Were any procedures done? @ -No Diagnosis/symptom? Acute, or Chronic, or Acute on Chronic? Uncomplicated (without systemic symptoms) or Complicated (systemic symptoms)? @ -Alcohol intoxication Side effects of treatment? @ -No Exacerbation, Progression, or Severe Exacerbation? @ -No Poses a threat to life or bodily function? How? (Chest pain, USA, [place], pneumonia, PE, COPD, DKA, ARF, appy, cholecystitis, CVA, Diverticulitis, Homicidal, Suicidal, threat to staff... and all critical care pts) @ -No - Lab Data Result diagrams: 11/14/23 07:38 11/14/23 08:37 Lab Results 11/14/23 11/14/23 11/14/23 Range/Units 07:38 07:38 08:29 WBC 4.3 (3.8-10.6) k/uL RBC 4.55 (4.30-5.90) m/uL Hgb 13.5 (13.0-17.5) gm/dL Hct 41.0 (39.0-53.0) % MCV 90.2 (80.0-100.0) fL MCH 29.6 (25.0-35.0) pg MCHC 32.8 (31.0-37.0) g/dL RDW 16.6 H (11.5-15.5) % Plt Count 299 (150-450) k/uL MPV 7.3 Neutrophils % 32 % Lymphocytes % 54 % Monocytes % 6 % Eosinophils % 1 % Basophils % 3 % Neutrophils # 1.4 (1.3-7.7) k/uL Lymphocytes # 2.4 (1.0-4.8) k/uL Monocytes # 0.3 (0-1.0) k/uL Eosinophils # 0.1 (0-0.7) k/uL Basophils # 0.1 (0-0.2) k/uL Anisocytosis Slight Sodium 142 (137-145) mmol/L Potassium 5.5 H (3.5-5.1) mmol/L Chloride 104 (98-107) mmol/L Carbon Dioxide 21 L (22-30) mmol/L Anion Gap 17 mmol/L BUN 10 (9-20) mg/dL Creatinine 0.74 (0.66-1.25) mg/dL Est GFR (CKD-EPI)AfAm >90 (>60 ml/min/1.73 sqM) Est GFR (CKD-EPI)NonAf >90 (>60 ml/min/1.73 sqM) Glucose 83 (74-99) mg/dL Calcium 9.1 (8.4-10.2) mg/dL Magnesium 1.7 (1.6-2.3) mg/dL Serum Alcohol 228 H* mg/dL Influenza Type A (PCR) Not Detected (Not Detectd) Influenza Type B (PCR) Not Detected (Not Detectd) RSV (PCR) Not Detected (Not Detectd) SARS-CoV-2 (PCR) Not Detected (Not Detectd) 11/14/23 Range/Units 08:37 WBC (3.8-10.6) k/uL RBC (4.30-5.90) m/uL Hgb (13.0-17.5) gm/dL Hct (39.0-53.0) % MCV (80.0-100.0) fL MCH (25.0-35.0) pg MCHC (31.0-37.0) g/dL RDW (11.5-15.5) % Plt Count (150-450) k/uL MPV Neutrophils % % Lymphocytes % % Monocytes % % Eosinophils % % Basophils % % Neutrophils # (1.3-7.7) k/uL Lymphocytes # (1.0-4.8) k/uL Monocytes # (0-1.0) k/uL Eosinophils # (0-0.7) k/uL Basophils # (0-0.2) k/uL Anisocytosis Sodium (137-145) mmol/L Potassium 4.2 (3.5-5.1) mmol/L Chloride (98-107) mmol/L Carbon Dioxide (22-30) mmol/L Anion Gap mmol/L BUN (9-20) mg/dL Creatinine (0.66-1.25) mg/dL Est GFR (CKD-EPI)AfAm (>60 ml/min/1.73 sqM) Est GFR (CKD-EPI)NonAf (>60 ml/min/1.73 sqM) Glucose (74-99) mg/dL Calcium (8.4-10.2) mg/dL Magnesium (1.6-2.3) mg/dL Serum Alcohol mg/dL Influenza Type A (PCR) (Not Detectd) Influenza Type B (PCR) (Not Detectd) RSV (PCR) (Not Detectd) SARS-CoV-2 (PCR) (Not Detectd) Disposition Clinical Impression: Alcohol intoxication Disposition: HOME SELF-CARE Condition: Fair Instructions (If sedation given, give patient instructions): Alcohol Into xication (ED) Is patient prescribed a controlled substance at d/c from ED?: No Referrals: Luis Cho MD [Primary Care Provider] - 1-2 days Time of Disposition: 11:17
[2023-11-14 08:21] LABS: Alcohol 228 mg/dL; Magnesium 1.7 mg/dL (1.6-2.3)
[2023-11-14 08:25] LABS: Potassium 5.5 mmol/L (3.5-5.1)
--- NOTE | 2023-11-14 08:44 | XR ---
EXAMINATION TYPE: XR chest 2V DATE OF EXAM: 11/14/2023 8:33 AM CLINICAL INDICATION:Male, 42 years old with history of weakness; [facility] COMPARISON: Chest radiographs from TECHNIQUE: XR chest 2V Frontal and lateral views of the chest. FINDINGS: Lungs/Pleura: There is no evidence of pleural effusion, focal consolidation, or pneumothorax. Pulmonary vascularity: Unremarkable. Heart/mediastinum: Cardiomediastinal silhouette is unremarkable. Musculoskeletal: No acute osseous pathology. Scoliosis changes to the spine with dextro scoliosis ape x T10. Levoscoliosis apex at T4. IMPRESSION: 1. No acute cardiopulmonary disease/process. 2. Scoliotic spine.
[2023-11-14 10:42] VITALS: RESP 18
[2023-11-14 12:27] VITALS: BP 159/89; PULSE 99; TEMP 98
== END 2023-11-14 11:53 | disposition home or self-care (01) ==
LOC: EC 07:03
DX: F10.129 Alcohol abuse with intoxication, unspecified (principal); I10 Essential (primary) hypertension; Z86.59 Personal history of other mental and behavioral disorders; Z87.891 Personal history of nicotine dependence; Z20.822 Contact with and (suspected) exposure to COVID-19; Y90.0 Blood alcohol level of less than 20 mg/100 ml
CPT/HCPCS: 36415; 71046; 80048; 80320; 83735; 84132; 85025; 87636; 99285

== ENCOUNTER 2023-11-19 01:09 | Emergency (ER) | payer OTHER ==
[2023-11-19] MEDS ORDERED: LORazepam 0.5 MG TAB PO PRN (02:01)
[2023-11-19] MEDS ORDERED: LORazepam 1 MG TAB PO PRN ×4 (02:01)
[2023-11-19] MEDS ORDERED: LORazepam 2 MG/ML INJ IM STA (02:02)
[2023-11-19 02:05] VITALS: PULSE 107; RESP 18; TEMP 98.5
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
--- NOTE | 2023-11-19 04:26 | XR ---
EXAM: XR Right Knee, 3 Views CLINICAL HISTORY: ITS.REASON XR Reason: r/o fx TECHNIQUE: Three views of the right knee. COMPARISON: No relevant prior studies available. IMPRESSION: 1. No evidence of acutely displaced fracture or dislocation within the right knee. 2. Findings suspicious for minimal medial tibiofemoral compartment and patellofemoral compartment osteoarthrosis. 3. Poor lateral imaging limits evaluation for suprapatellar effusion.
--- NOTE | 2023-11-19 04:27 | XR ---
EXAM: XR Cervical Spine, 2 or 3 Views CLINICAL HISTORY: ITS.REASON XR Reason: r/o fx TECHNIQUE: Frontal and lateral views of the cervical spine. COMPARISON: No relevant prior studies available. IMPRESSION: 1. No evidence of acutely displaced fracture or dislocation within the cervical spine. 2. Retrolisthesis of C3 on C4 and C4 on C5. Levoconvex spinal asymmetry with apex at T2. 3. Minimal degenerative changes with osteophyte formation. 4. Recommend MRI if there is further concern given the low sensitivity of CT.
[2023-11-19 05:10] VITALS: BP 116/78
== END 2023-11-19 04:55 | disposition home or self-care (01) ==
LOC: EC 01:09
DX: M25.78 Osteophyte, vertebrae (principal); M43.12 Spondylolisthesis, cervical region; M47.812 Spondylosis without myelopathy or radiculopathy, cervical region; M25.561 Pain in right knee; F10.20 Alcohol dependence, uncomplicated; I10 Essential (primary) hypertension; Z86.59 Personal history of other mental and behavioral disorders; Z87.891 Personal history of nicotine dependence; Y90.0 Blood alcohol level of less than 20 mg/100 ml; W22.8XXA Striking against or struck by other objects, initial encounter; Y93.64 Activity, baseball
CPT/HCPCS: 72040; 73560; 99283; 96372; J2060

== ENCOUNTER 2023-11-21 05:08 | Observation (INO) | payer OTHER ==
[2023-11-21] MEDS: SODIUM CHLORIDE 0.9% 1,000 ML IV STA (05:23)
[2023-11-21 05:36] LABS: INR 1.1 (<1.2); Partial Thromboplastin Time 23.8 sec (22.0-30.0); Prothrombin Time 11.4 sec (10.0-12.5)
[2023-11-21 05:40] LABS: ALT 51 U/L (4-49); AST 120 U/L (17-59); African American GFR (CKD) >90 (>60 ml/min/1.73 sqM); Albumin 4.4 g/dL (3.5-5.0); Alcohol 14 mg/dL; Alkaline Phosphatase 188 U/L (38-126); Anion Gap 15 mmol/L; Blood Urea Nitrogen 9 mg/dL (9-20); Calcium 9.5 mg/dL (8.4-10.2); Carbon Dioxide 19 mmol/L (22-30); Chloride 101 mmol/L (98-107); Glucose 126 mg/dL (74-99); Magnesium 1.4 mg/dL (1.6-2.3); Non-African American GFR(CKD) >90 (>60 ml/min/1.73 sqM); Potassium 3.4 mmol/L (3.5-5.1); Sodium 135 mmol/L (137-145); Total Bilirubin 1.4 mg/dL (0.2-1.3); Total Protein 8.7 g/dL (6.3-8.2)
[2023-11-21 05:42] LABS: Anisocytosis Slight; HCT 38.5 % (39.0-53.0); HGB 12.1 gm/dL (13.0-17.5); MCH 28.6 pg (25.0-35.0); MCHC 31.6 g/dL (31.0-37.0); MCV 90.5 fL (80.0-100.0); Mean Platelet Volume 8.1; RBC 4.25 m/uL (4.30-5.90); RDW 16.4 % (11.5-15.5); WBC 5.3 k/uL (3.8-10.6)
[2023-11-21 05:45] LABS: Platelet Count 131 k/uL (150-450)
--- NOTE | 2023-11-21 05:57 | XR ---
EXAM: XR Chest, 2 Views CLINICAL HISTORY: ITS.REASON XR Reason: dysrhythmia TECHNIQUE: Frontal and lateral views of the chest. COMPARISON: XR Chest dated 10/29/23 FINDINGS: Lungs: Unremarkable. No consolidation. Pleural space: Unremarkable. No pneumothorax. Heart: Unremarkable. No cardiomegaly. Mediastinum: Unremarkable. Normal mediastinal contour. Bones/joints: Dextroscoliosis of the thoracic spine. No acute fracture. IMPRESSION: No acute findings in the chest.
[2023-11-21 06:17] LABS: Eosinophils # (M) 0.05 k/uL (0-0.7); Lymphocytes # (M) 1.96 k/uL (1.0-4.8); Monocytes # (M) 0.85 k/uL (0-1.0); Neutrophils # (M) 2.44 k/uL (1.3-7.7); Neutrophils % (M) 46 %; Nucleated Red Blood Cells 0 /100 WBC (0-0); Total Cells Counted 100
[2023-11-21 06:18] LABS: Hypochromasia (M) Present
[2023-11-21 06:32] LABS: Appearance,Urine Clear (Clear); Bilirubin,Urine Negative (Negative); Blood,Urine Negative (Negative); Color,Urine Colorless; Glucose,Urine (UA) Negative (Negative); Ketones,Urine Negative (Negative); Leukocyte Esterase,Urine Negative (Negative); Nitrite,Urine Negative (Negative); Protein,Urine Negative (Negative); Specific Gravity,Urine 1.006 (1.001-1.035); Urobilinogen,Urine <2.0 mg/dL (<2.0)
[2023-11-21 06:44] LABS: Amphetamine Screen,Urine Not Detected (NotDetected); Barbiturate Screen,Urine Not Detected (NotDetected); Benzodiazepines Screen,Urine Not Detected (NotDetected); Cocaine Screen,Urine Not Detected (NotDetected); Methadone Screen, Urine Not Detected (NotDetected); Opiate Screen,Urine Not Detected (NotDetected); Oxycodone Screen, Urine Not Detected (NotDetected); Phencyclidine Screen,Urine Not Detected (NotDetected); Tricyclic Antidepressant,Urine Detected (NotDetected); Urn Cannabinoid Scrn Not Detected (NotDetected)
--- NOTE | 2023-11-21 06:48 | ED ---
Arrhythmia/Palpitations HPI - General Chief Complaint: Arrhythmia/Palpitations Stated Complaint: Tachycardia Time Seen by Provider: 11/21/23 05:15 Source: patient, EMS Mode of arrival: EMS - History of Present Illness Initial Comments: 42-year-old male with past medical history of alcohol abuse who presents to the emergency department reporting rapid heart rate. States that his friend gave him 2 Seroquel and 2 melatonin in an attempt to help him sleep. States that within 10 minutes of taking the medications he felt like his heart was beating out of his chest. He called EMS. EMS found that the patient had a heart rate of 150. He denies any previous history of cardiac disease. There is concerned that the medications that the patient was given may not have been Seroquel. He admits to chest pressure. Denies use of any other known recreational drugs. - Related Data Home Medications Medication Instructions Recorded Confirmed No Known Home Medications 11/21/23 11/21/23 Allergies Allergy/AdvReac Type Severity Reaction Status Date / Time No Known Allergies Allergy Verified 11/26/23 03:25 Review of Systems ROS Statement: Those systems with pertinent positive or pertinent negative responses have been documented in the HPI. ROS Other: All systems not noted in ROS Statement are negative. Past Medical History Past Medical History: Hypertension, Pneumonia, Seizure Disorder Additional Past Medical History / Comment(s): ETOH History of Any Multi-Drug Resistant Organisms: None Reported Past Surgical History: Joint Replacement, Orthopedic Surgery Additional Past Surgical History / Comment(s): Right knee surgery, left leg incision and drainage for spider bite, jaw surgery 2018 Past Anesthesia/Blood Transfusion Reactions: No Reported Reaction Past Psychological History: Anxiety, No Psychological Hx Reported Smoking Status: Former smoker Past Alcohol Use History: Daily Past Drug Use History: None Reported - Past Family History Sister(s) Family Medical History: Diabetes Mellitus Mother Family Medical History: Diabetes Mellitus Additional Family Medical History / Comment(s): from sudhakar johnsons syndrome Father Family Medical History: Diabetes Mellitus, Myocardial Infarction ([place]) Additional Family Medical History / Comment(s): from dm complications General Exam General appearance: alert, in no apparent distress Head exam: Present: atraumatic, normocephalic, normal inspection Eye exam: Present: normal appearance, PERRL, EOMI. Absent: scleral icterus, conjunctival injection, periorbital swelling ENT exam: Present: normal exam, mucous membranes moist Neck exam: Present: normal inspection. Absent: tenderness, meningismus, lymphadenopathy Respiratory exam: Present: normal lung sounds bilaterally. Absent: respiratory distress, wheezes, rales, rhonchi, stridor Cardiovascular Exam: Present: normal rhythm, tachycardia, normal heart sounds. Absent: systolic murmur, diastolic murmur, rubs, gallop, clicks GI/Abdominal exam: Present: soft, normal bowel sounds. Absent: distended, tenderness, guarding, rebound, rigid Extremities exam: Present: normal inspection, full ROM, normal capillary refill. Absent: tenderness, pedal edema, joint swelling, calf tenderness Back exam: Present: normal inspection Neurological exam: Present: alert, oriented X3, CN II-XII intact Psychiatric exam: Present: normal affect, normal mood Skin exam: Present: warm, dry, intact, normal color. Absent: rash Course Vital Signs 11/21/23 11/21/23 11/21/23 05:10 06:07 07:39 Temperature 97.2 F L Pulse Rate 152 H 128 H 114 H Respiratory 20 18 12 Rate Blood Pressure 116/73 109/70 103/61 O2 Sat by Pulse 97 97 98 Oximetry 11/21/23 11/21/23 08:00 09:00 Temperature Pulse Rate 112 H 109 H Respiratory 16 16 Rate Blood Pressure 121/76 120/76 O2 Sat by Pulse 98 98 Oximetry Medical Decision Making - Medical Decision Making Was pt. sent in by a medical professional or institution (DEVIN Woo, NUCLEAR PHYSICS TEACHER, urgent care, hospital, or alf...) When possible be specific @ -No Did you speak to anyone other than the patient for history (EMS, parent, family, police, friend...)? What history was obtained from this source @ -EMS Did you review nursing and triage notes (agree or disagree)? Why? @ -I reviewed and agree with nursing and triage notes Were old charts reviewed (outside hosp., previous admission, EMS record, old EKG, old radiological studies, urgent care reports/EKG's, alf records)? Report findings @ -No old charts were reviewed Differential Diagnosis (chest pain, altered mental status, abdominal pain women, abdominal pain men, vaginal bleeding, weakness, fever, dyspnea, syncope, headache, dizziness, GI bleed, back pain, seizure, CVA, palpatations, mental he alth, musculoskeletal)? @ -Differential Palpitations Ventricular arrhythmias, atrial arrhythmias, myocardial infarction, anemia, thyrotoxicosis, electrolyte imbalance, hypokalemia, pulmonary embolism, pulmonary disease, drugs, alcohol, anxiety, stress.... This is not meant to be an all-inclusive list. EKG interpreted by me (3pts min.). @ -Yes. EKG completed at 5:13 AM demonstrates sinus tachycardia with a rate of 150. NH interval 113. QRS 85. QTc of 382. ST depression 2, 3, aVF Repeat at 6:22 AM demonstrates sinus tachycardia with a rate of 129. Parable 123. QRS 108. QTc of 386. No acute ST segment elevations or depressions X-rays interpreted by me (1pt min.). @ -Yes and demonstrates no acute process CT interpreted by me (1pt min.). @ -None done U/S interpreted by me (1pt. min.). @ -None done What testing was considered but not performed or refused? (CT, X-rays, U/S, labs )? Why? @ -None What meds were considered but not given or refused? Why? @ -None Did you discuss the management of the patient with other professionals (professionals i.e. DrMynor, PA, NUCLEAR PHYSICS TEACHER, lab, RT, psych nurse, long term care social worker, labor relations worker, teacher, fisheries enforcement officer, field nurse case manager)? Give summary @ -Spoke with Dr. Cho for the admission Was smoking cessation discussed for >3mins.? @ -No Was critical care preformed (if so, how long)? @ -No Were there social determinants of health that impacted care today? How? (Homelessness, low income, unemployed, alcoholism, drug addiction, transportation, low edu. Level, literacy, decrease access to med. care, [facility], rehab)? @ -No Was there de-escalation of care discussed even if they declined (Discuss DNR or withdrawal of care, Hospice)? DNR status @ -No What co-morbidities impacted this encounter? (DM, HTN, Smoking, COPD, CAD, Cancer, CVA, ARF, Chemo, Hep., AIDS, mental health diagnosis, sleep apnea, morbid obesity)? @ -Alcohol abuse Was patient admitted / discharged? Hospital course, mention meds given and route, prescriptions, significant lab abnormalities, going to OR and other pertinent info. @ -Upon arrival patient was placed into room 7. Thorough history and physical exam was performed. IV is established. Laboratory studies are conducted. Chest x-ray is performed. Patient does have improvement in his heart rate with Ativan and IV fluids. There is concerned that the patient may have ingested something that was not Seroquel. I recommended admission due to continued elevated heart rate forts patient was agreeable. Spoke with Dr. Cho who agreed to admit the patient Undiagnosed new problem with uncertain prognosis? @ -Yes Drug Therapy requiring intensive monitoring for toxicity (Heparin, Nitro, Insulin, Cardizem)? @ -No Were any procedures done? @ -No Diagnosis/symptom? @ -Acute sinus tachycardia, status post unknown ingestion Acute, or Chronic, or Acute on Chronic? @ -Acute Uncomplicated (without systemic symptoms) or Complicated (systemic symptoms)? @ -Complicated Side effects of treatment? @ -No Exacerbation, Progression, or Severe Exacerbation? @ -No Poses a threat to life or bodily function? How? (Chest pain, [place], [place], pneumonia, PE, COPD, DKA, ARF, appy, cholecystitis, CVA, Diverticulitis, Homicidal, Suicidal, threat to staff... and all critical care pts) @ -No - Lab Data Result diagrams: 11/22/23 07:49 11/22/23 07:49 Lab Results 11/21/23 11/21/23 11/21/23 Range/Units 05:14 05:14 05:14 WBC 5.3 (3.8-10.6) k/uL RBC 4.25 L (4.30-5.90) m/uL Hgb 12.1 L (13.0-17.5) gm/dL Hct 38.5 L (39.0-53.0) % MCV 90.5 (80.0-100.0) fL MCH 28.6 (25.0-35.0) pg MCHC 31.6 (31.0-37.0) g/dL RDW 16.4 H (11.5-15.5) % Plt Count 131 L D (150-450) k/uL MPV 8.1 Neutrophils % Not Reportable Neutrophils % (Manual) 46 % Lymphocytes % Not Reportable Lymphocytes % (Manual) 37 % Monocytes % Not Reportable Monocytes % (Manual) 16 % Eosinophils % Not Reportable Eosinophils % (Manual) 1 % Basophils % Not Reportable Neutrophils # Not Reportable Neutrophils # (Manual) 2.44 (1.3-7.7) k/uL Lymphocytes # Not Reportable Lymphocytes # (Manual) 1.96 (1.0-4.8) k/uL Monocytes # Not Reportable Monocytes # (Manual) 0.85 (0-1.0) k/uL Eosinophils # Not Reportable Eosinophils # (Manual) 0.05 (0-0.7) k/uL Basophils # Not Reportable Nucleated RBCs 0 (0-0) /100 WBC Manual Slide Review Performed Hypochromasia (manual) Present Anisocytosis Slight PT 11.4 (10.0-12.5) sec INR 1.1 (<1.2) APTT 23.8 (22.0-30.0) sec Sodium 135 L (137-145) mmol/L Potassium 3.4 L (3.5-5.1) mmol/L Chloride 101 (98-107) mmol/L Carbon Dioxide 19 L (22-30) mmol/L Anion Gap 15 mmol/L BUN 9 (9-20) mg/dL Creatinine 0.83 (0.66-1.25) mg/dL Est GFR (CKD-EPI)AfAm >90 (>60 ml/min/1.73 sqM) Est GFR (CKD-EPI)NonAf >90 (>60 ml/min/1.73 sqM) Glucose 126 H (74-99) mg/dL Calcium 9.5 (8.4-10.2) mg/dL Magnesium 1.4 L (1.6-2.3) mg/dL Total Bilirubin 1.4 H (0.2-1.3) mg/dL AST 120 H (17-59) U/L ALT 51 H (4-49) U/L Alkaline Phosphatase 188 H (38-126) U/L Troponin I (0.000-0.034) ng/mL Total Protein 8.7 H (6.3-8.2) g/dL Albumin 4.4 (3.5-5.0) g/dL TSH 4.790 H (0.465-4.680) mIU/L Free T4 1.54 (0.78-2.19) ng/dL Urine Color Urine Appearance (Clear) Urine pH (5.0-8.0) Ur Specific [place] (1.001-1.035) Urine Protein (Negative) Urine Glucose (UA) (Negative) Urine Ketones (Negative) Urine Blood (Negative) Urine Nitrite (Negative) Urine Bilirubin (Negative) Urine Urobilinogen (<2.0) mg/dL Ur Leukocyte Esterase (Negative) Urine Opiates Screen (NotDetected) Ur Oxycodone Screen (NotDetected) Urine Methadone Screen (NotDetected) Ur Barbiturates Screen (NotDetected) U Tricyclic Antidepress (NotDetected) Ur Phencyclidine Scrn (NotDetected) Ur Amphetamines Screen (NotDetected) U Methamphetamines Scrn (NotDetected) U Benzodiazepines Scrn (NotDetected) Urine Cocaine Screen (NotDetected) U Marijuana (THC) Screen (NotDetected) Serum Alcohol 14 mg/dL 11/21/23 11/21/23 Range/Units 05:14 05:16 WBC (3.8-10.6) k/uL RBC (4.30-5.90) m/uL Hgb (13.0-17.5) gm/dL Hct (39.0-53.0) % MCV (80.0-100.0) fL MCH (25.0-35.0) pg MCHC (31.0-37.0) g/dL RDW (11.5-15.5) % Plt Count (150-450) k/uL MPV Neutrophils % Neutrophils % (Manual) % Lymphocytes % Lymphocytes % (Manual) % Monocytes % Monocytes % (Manual) % Eosinophils % Eosinophils % (Manual) % Basophils % Neutrophils # Neutrophils # (Manual) (1.3-7.7) k/uL Lymphocytes # Lymphocytes # (Manual) (1.0-4.8) k/uL Monocytes # Monocytes # (Manual) (0-1.0) k/uL Eosinophils # Eosinophils # (Manual) (0-0.7) k/uL Basophils # Nucleated RBCs (0-0) /100 WBC Manual Slide Review Hypochromasia (manual) Anisocytosis PT (10.0-12.5) sec INR (<1.2) APTT (22.0-30.0) sec Sodium (137-145) mmol/L Potassium (3.5-5.1) mmol/L Chloride (98-107) mmol/L Carbon Dioxide (22-30) mmol/L Anion Gap mmol/L BUN (9-20) mg/dL Creatinine (0.66-1.25) mg/dL Est GFR (CKD-EPI)AfAm (>60 ml/min/1.73 sqM) Est GFR (CKD-EPI)NonAf (>60 ml/min/1.73 sqM) Glucose (74-99) mg/dL Calcium (8.4-10.2) mg/dL Magnesium (1.6-2.3) mg/dL Total Bilirubin (0.2-1.3) mg/dL AST (17-59) U/L ALT (4-49) U/L Alkaline Phosphatase (38-126) U/L Troponin I <0.012 (0.000-0.034) ng/mL Total Protein (6.3-8.2) g/dL Albumin (3.5-5.0) g/dL TSH (0.465-4.680) mIU/L Free T4 (0.78-2.19) ng/dL Urine Color Colorless Urine Appearance Clear (Clear) Urine pH 5.0 (5.0-8.0) Ur Specific [place] 1.006 (1.001-1.035) Urine Protein Negative (Negative) Urine Glucose (UA) Negative (Negative) Urine Ketones Negative (Negative) Urine Blood Negative (Negative) Urine Nitrite Negative (Negative) Urine Bilirubin Negative (Negative) Urine Urobilinogen <2.0 (<2.0) mg/dL Ur Leukocyte Esterase Negative (Negative) Urine Opiates Screen Not Detected (NotDetected) Ur Oxycodone Screen Not Detected (NotDetected) Urine Methadone Screen Not Detected (NotDetected) Ur Barbiturates Screen Not Detected (NotDetected) U Tricyclic Antidepress Detected H (NotDetected) Ur Phencyclidine Scrn Not Detected (NotDetected) Ur Amphetamines Screen Not Detected (NotDetected) U Methamphetamines Scrn Not Detected (NotDetected) U Benzodiazepines Scrn Not Detected (NotDetected) Urine Cocaine Screen Not Detected (NotDetected) U Marijuana (THC) Screen Not Detected (NotDetected) Serum Alcohol mg/dL Disposition Clinical Impression: Tachycardia, Hypomagnesemia Disposition: ADMITTED IP TO THIS [facility] Condition: Stable Is patient prescribed a controlled substance at d/c from ED?: No Time of Disposition: 08:12 Decision to Admit Reason: Admit from EC Decision Date: 11/21/23 Decision Time: 08:13
[2023-11-21 06:56] LABS: T4, Free (Free Thyroxine) 1.54 ng/dL (0.78-2.19)
[2023-11-21] MEDS: SODIUM CHLORIDE 0.9% 1,000 ML IV ONE (07:03)
[2023-11-21] MEDS: MAGNESIUM SULFATE-D5W PMX 1 GM in DEXTROSE/WATER 1 100ML.BAG IVPB SCH (07:03)
[2023-11-21] MEDS: LORazepam 2 MG/ML INJ IV STA (07:03)
[2023-11-21] MEDS ORDERED: NALOXONE 0.4 MG/ML 1 ML VIAL IV PRN (08:13)
[2023-11-21] MEDS ORDERED: LORazepam 2 MG/ML INJ IV PRN ×3 (08:14)
[2023-11-21] MEDS: SODIUM CHLORIDE 0.9% 1,000 ML IV SCH (09:05)
[2023-11-21] MEDS: THIAMINE 100 MG/ML 2 ML VIAL IM STA (11:51)
[2023-11-22 07:57] VITALS: BP 150/89; PULSE 107; RESP 19; TEMP 98.9
[2023-11-22] MEDS: THIAMINE 100 MG TAB PO SCH (08:54)
[2023-11-22] MEDS: ACETAMINOPHEN TAB 325 MG TAB PO PRN (10:09)
[2023-11-22 10:59] LABS: Basophils # (A) 0.03 X 10*3/uL (0.00-0.10); Basophils % (A) 0.6 %; Eosinophils % (A) 1.9 %; HCT 36.8 % (39.6-50.0); HGB 11.6 g/dL (13.0-17.0); Lymphocytes # (A) 1.16 X 10*3/uL (0.90-5.00); Lymphocytes % (A) 21.7 %; MCH 28.5 pg (27.0-32.0); MCHC 31.5 g/dL (32.0-37.0); MCV 90.4 FL (80.0-97.0); Mean Platelet Volume 11.7 FL (9.5-12.2); Monocytes # (A) 0.78 X 10*3/uL (0.20-1.00); Monocytes % (A) 14.6 %; NRBC Per 100 WBC 0 X 10*3/uL (0.00-0.01); Neutrophils # (A) 3.25 X 10*3/uL (1.80-7.70); Neutrophils % (A) 60.6 %; Platelet Count 134 X 10*3/uL (140-440); RBC 4.07 X 10*6/uL (4.40-5.60); WBC 5.35 X 10*3/uL (4.50-10.00)
[2023-11-22 11:18] LABS: BUN/Creat Ratio 4.89 Ratio (12.00-20.00); Blood Urea Nitrogen 4.4 mg/dL (9.0-27.0); Calcium 9.3 mg/dL (8.7-10.3); Carbon Dioxide 23.9 mmol/L (21.6-31.8); Chloride 103 mmol/L (96-109); Glucose 84 mg/dL (70-110); Potassium 4.4 mmol/L (3.5-5.5); Sodium 137 mmol/L (135-145)
--- NOTE | 2023-11-25 01:45 | HP ---
HISTORY AND PHYSICAL CHIEF COMPLAINT: Lightheadedness and tachycardia. HISTORY OF PRESENT ILLNESS: This is a gentleman who presented back to the emergency room with tachycardia of around 140-150 beats per minute. It was sinus. He has been in and out of the hospital over the last year for acute alcohol intoxication, seizure disorder and DTs. He came into the hospital this time with a tachycardia of around 140. Studies in the ER were unremarkable. REVIEW OF SYSTEMS: He had no complaints of lightheadedness, dizziness, syncope, chest pain, etc. PAST MEDICAL HISTORY: Unchanged. FAMILY HISTORY: Unchanged. PERSONAL AND SOCIAL HISTORY: Unchanged. PHYSICAL EXAMINATION: VITAL SIGNS: Pulse is 148. Blood pressure is 125/70. GENERAL APPEARANCE: The patient appeared to be slender, in no acute distress. SKIN: Dry. LYMPH NODES: Not enlarged. HEAD, EARS, EYES, NOSE, MOUTH AND THROAT: Normal. CHEST: Clear. CARDIAC: Normal except for the tachycardia. ABDOMEN: The abdomen is soft and nontender. EXTREMITIES: Normal. NEUROLOGIC: Seemed to be intact. Admitted to the hospital with diagnosis: 1. Sinus tachycardia, etiology unknown. 2. Chronic alcoholism. 3. History of alcohol withdrawal seizures. PLAN: 1. Bedrest. 2. IV fluids. 3. Telemetry and monitor heart rate. MMODL / IJN: [id number] /
--- NOTE | 2023-11-25 08:04 | DS ---
DISCHARGE SUMMARY CHIEF COMPLAINT: Tachycardia. HISTORY OF PRESENT ILLNESS AND PHYSICAL EXAM: Details of this man's history and physical can be found in the initial workup. COURSE IN THE HOSPITAL: After admission, he is placed on bedrest and started on intravenous fluid in telemetry. His pulse slowly came down to 90 or 100, and it was felt he could be discharged to follow up in the office. FINAL DIAGNOSES: 1. Tachycardia. 2. Chronic alcoholism. 3. History of alcoholic withdrawal seizures. OPERATIONS: None. CONSULTATION: None. He is improved. MMODL / IJN: [id number] /
== END 2023-11-22 14:16 | disposition home or self-care (01) ==
LOC: EC 05:08 → 6NMEDSUR 08:15
PROVIDERS: ADMIT Family Medicine; ATTEND Family Medicine
DX: R00.0 Tachycardia, unspecified (principal); E83.42 Hypomagnesemia; F10.20 Alcohol dependence, uncomplicated; Z87.898 Personal history of other specified conditions; Z82.49 Family history of ischemic heart disease and other diseases of the circulatory system
CPT/HCPCS: 96361 ×3; 96365; 96366; 96375; 99285; 36415; 93005; 84439; 80053; 80048; 84443; 83735; 84484; 85025 ×2; 85610; 85730; 81003; 80306; 80320; 71046; G0378 ×2; J2060; J3475

== ENCOUNTER 2023-11-24 02:35 | Emergency (ER) | payer OTHER ==
[2023-11-24 03:04] VITALS: TEMP 97.4
[2023-11-24 03:26] LABS: Anisocytosis Slight; HCT 37.1 % (39.0-53.0); HGB 12.1 gm/dL (13.0-17.5); MCH 29.9 pg (25.0-35.0); MCHC 32.6 g/dL (31.0-37.0); MCV 91.7 fL (80.0-100.0); Mean Platelet Volume 9.9; Platelet Count 124 k/uL (150-450); RBC 4.05 m/uL (4.30-5.90); RDW 16.8 % (11.5-15.5); WBC 6.6 k/uL (3.8-10.6)
--- NOTE | 2023-11-24 03:29 | ED ---
Chest Pain HPI - General Chief Complaint: Chest Pain Stated Complaint: Chest Pain Time Seen by Provider: 11/24/23 03:10 Source: patient Mode of arrival: EMS Limitations: no limitations - History of Present Illness MD Complaint: chest pain Onset/Timin Onset: during rest Pain Location: substernal Pain Radiation: none Severity: moderate Quality: dull Consistency: constant Improves With: nothing Worsens With: nothing Treatments Prior to Arrival: none - Related Data Previous Rx's Medication Instructions Recorded Aspirin 81 mg PO DAILY #30 tab 12/02/23 Thiamine [Vitamin B-1] 100 mg PO DAILY #30 tab 12/02/23 chlordiazePOXIDE HCl [Librium] 25 mg PO TID 3 Days #6 capsule 12/02/23 Allergies Allergy/AdvReac Type Severity Reaction Status Date / Time No Known Allergies Allergy Verified 12/01/23 11:32 Review of Systems ROS Statement: Those systems with pertinent positive or pertinent negative responses have been documented in the HPI. ROS Other: All systems not noted in ROS Statement are negative. Constitutional: Denies: fever, chills Respiratory: Denies: cough, dyspnea, wheezes Cardiovascular: Reports: chest pain. Denies: palpitations, edema Gastrointestinal: Denies: abdominal pain, nausea, vomiting, diarrhea Genitourinary: Denies: dysuria, hematuria Musculoskeletal: Reports: arthralgia. Denies: back pain Skin: Denies: rash Neurological: Reports: headache. Denies: weakness, numbness EKG Findings - EKG Results: EKG: interpreted by ERMD, sinus rhythm (Rate 99 bpm), normal axis, normal ST/T - Blocks, [place], Hypertrophy, ST Abn: AV and intraventricular conduction: intraventricular conduction delay Past Medical History Past Medical History: Hypertension, Pneumonia, Seizure Disorder Additional Past Medical History / Comment(s): ETOH History of Any Multi-Drug Resistant Organisms: None Reported Past Surgical History: Joint Replacement, Orthopedic Surgery Additional Past Surgical History / Comment(s): Right knee surgery, left leg incision and drainage for spider bite, jaw surgery 2018 Past Anesthesia/Blood Transfusion Reactions: No Reported Reaction Past Psychological History: Anxiety, No Psychological Hx Reported - Past Family History Sister(s) Family Medical History: Diabetes Mellitus Mother Family Medical History: Diabetes Mellitus Additional Family Medical History / Comment(s): from sudhakar johnsons syndrome Father Family Medical History: Diabetes Mellitus, Myocardial Infarction ([place]) Additional Family Medical History / Comment(s): from dm complications General Exam Limitations: no limitations General appearance: alert, in no apparent distress Head exam: Present: atraumatic, normocephalic Eye exam: Present: normal appearance. Absent: scleral icterus, conjunctival injection ENT exam: Present: normal oropharynx Neck exam: Present: normal inspection Respiratory exam: Present: normal lung sounds bilaterally, chest wall tenderness. Absent: respiratory distress, wheezes, rales, rhonchi, stridor, accessory muscle use Cardiovascular Exam: Present: regular rate, normal rhythm, normal heart sounds. Absent: systolic murmur, diastolic murmur, rubs, gallop GI/Abdominal exam: Present: soft. Absent: distended, tenderness, guarding, rebound, rigid, mass Extremities exam: Present: normal inspection, normal capillary refill. Absent: pedal edema, calf tenderness Back exam: Present: normal inspection. Absent: CVA tenderness (R), CVA tend erness (L) Neurological exam: Present: alert Skin exam: Present: warm, dry, intact, normal color. Absent: rash Course Vital Signs 11/24/23 11/24/23 11/24/23 02:36 03:39 04:00 Temperature 97.4 F L Pulse Rate 89 100 105 H Respiratory 16 18 18 Rate Blood Pressure 127/110 120/90 118/82 O2 Sat by Pulse 95 97 95 Oximetry 11/24/23 11/24/23 05:00 06:16 Temperature Pulse Rate 101 H 107 H Respiratory 18 18 Rate Blood Pressure 108/69 108/75 O2 Sat by Pulse 95 98 Oximetry Chest Pain [facility] The patient had chest x-ray which I interpreted as negative for acute infiltrate, pneumothorax, congestive heart failure Patient is a 43-year-old man who is here to have evaluation for chest pain that has been going on for over 12 hours. The patient's workup includes EKG that does not show evidence of ischemia and troponin that is negative and given the duration of chest pain this should now be positive with the pain that presented of of infarction. Did discuss with patient recommendation to limit alcohol intake and also discussed appropriate further care and follow-up as well as return parameters Was pt. sent in by a medical professional or institution (, PA, PRODUCT SPECIALIST, urgent care, hospital, or fpc...) When possible be specific @ -[No] Did you speak to anyone other than the patient for history (EMS, parent, family, police, friend...)? What history was obtained from this source @ -[No] Did you review nursing and triage notes (agree or disagree)? Why? @ -[I reviewed and agree with nursing and triage notes] Were old charts reviewed (outside hosp., previous admission, EMS record, old EKG, old radiological studies, urgent care reports/EKG's, fpc records)? Report findings @ -[No old charts were reviewed] Differential Diagnosis (chest pain, altered mental status, abdominal pain women, abdominal pain men, vaginal bleeding, weakness, fever, dyspnea, syncope, headache, dizziness, GI bleed, back pain, seizure, CVA, palpatations, mental health, musculoskeletal)? @ -[Differential Chest Pain: Stable Angina, Unstable Angina, STEMI, NSTEMI Aortic Dissection, Pneumothorax, Musculoskeletal, Esophageal Spasm GERD, Cholecystitis, Pancreatitis, Zoster, this is not meant to be an all-inclusive list. EKG interpreted by me (3pts min.). @ -[I interpreted as above] X-rays interpreted by me (1pt min.). @ -[I interpreted as above CT interpreted by me (1pt min.). @ -[None done] U/S interpreted by me (1pt. min.). @ -[None done] What testing was considered but not performed or refused? (CT, X-rays, U/S, labs)? Why? @ -[None] What meds were considered but not given or refused? Why? @ -[None] Did you discuss the management of the patient with other professionals (professionals i.e. , PA, PRODUCT SPECIALIST, lab, RT, psych nurse, social media assistant, milk and cream grader, teacher, disability insurance hearing officer, family service caseworker)? Give summary @ -[No] Was smoking cessation discussed for >3mins.? @ -[No] Was critical care preformed (if so, how long)? @ -[No] Were there social determinants of health that impacted care today? How? (Homelessness, low income, unemployed, alcoholism, drug addiction, transportation, low edu. Level, literacy, decrease access to med. care, [place] [facility], rehab)? @ -[No] Was there de-escalation of care discussed even if they declined (Discuss DNR or withdrawal of care, Hospice)? DNR status @ -[No] What co-morbidities impacted this encounter? (DM, HTN, Smoking, COPD, CAD, Cancer, CVA, ARF, Chemo, Hep., AIDS, mental health diagnosis, sleep apnea, morbid obesity)? @ -[None] Was patient admitted / discharged? Hospital course, mention meds given and route, prescriptions, significant lab abnormalities, going to OR and other pertinent info. @ -[See above Undiagnosed new problem with uncertain prognosis? @ -[No] Drug Therapy requiring intensive monitoring for toxicity (Heparin, Nitro, Insulin, Cardizem)? @ -[No] Were any procedures done? @ -[No] Diagnosis/symptom? @ -[Acute chest pain Acute, or Chronic, or Acute on Chronic? @ -[Acute Uncomplicated (without systemic symptoms) or Complicated (systemic symptoms)? @ -[Uncomplicated Side effects of treatment? @ -[No] Exacerbation, Progression, or Severe Exacerbation? @ -[No] Poses a threat to life or bodily function? How? (Chest pain, [place], [place], pneumonia, PE, COPD, DKA, ARF, appy, cholecystitis, CVA, Diverticulitis, Homicidal, Suicidal, threat to staff... and all critical care pts) @ -[No] Disposition Clinical Impression: Alcohol abuse, Chest pain Disposition: HOME SELF-CARE Condition: Good Instructions (If sedation given, give patient instructions): Chest Pain (ED) Is patient prescribed a controlled substance at d/c from ED?: No Referrals: Luis Cho MD [Primary Care Provider] - 1-2 days
[2023-11-24 03:35] LABS: ALT 49 U/L (4-49); AST 90 U/L (17-59); African American GFR (CKD) >90 (>60 ml/min/1.73 sqM); Albumin 4.3 g/dL (3.5-5.0); Alkaline Phosphatase 99 U/L (38-126); Amylase 108 U/L (30-110); Anion Gap 12 mmol/L; Blood Urea Nitrogen 8 mg/dL (9-20); Calcium 8.9 mg/dL (8.4-10.2); Carbon Dioxide 18 mmol/L (22-30); Chloride 105 mmol/L (98-107); Glucose 84 mg/dL (74-99); Lipase 159 U/L (23-300); Magnesium 1.6 mg/dL (1.6-2.3); Non-African American GFR(CKD) >90 (>60 ml/min/1.73 sqM); Potassium 3.9 mmol/L (3.5-5.1); Sodium 135 mmol/L (137-145); Total Bilirubin 0.7 mg/dL (0.2-1.3); Total Protein 8.7 g/dL (6.3-8.2)
[2023-11-24 04:03] VITALS: RESP 18
[2023-11-24 04:21] LABS: Partial Thromboplastin Time 21.7 sec (22.0-30.0); Prothrombin Time 10.6 sec (10.0-12.5)
[2023-11-24 04:39] LABS: Lymphocytes # (M) 2.84 k/uL (1.0-4.8); Monocytes # (M) 0.46 k/uL (0-1.0); Neutrophils % (M) 50 %; Nucleated Red Blood Cells 0 /100 WBC (0-0); RBC Morphology Normal; Total Cells Counted 100
[2023-11-24 06:31] VITALS: BP 108/75; PULSE 107
--- NOTE | 2023-11-24 06:31 | XR ---
EXAMINATION TYPE: XR chest 2V DATE OF EXAM: 11/24/2023 COMPARISON: 11/21/2023 HISTORY: Chest pain TECHNIQUE: Frontal and lateral views of the chest are obtained. FINDINGS: There is marked dextroscoliosis of the thoracolumbar spine. The lungs are clear and there is no consolidative or interstitial opacity. There is no pleural effusion or pneumothorax. Heart and pulmonary vasculature are normal. IMPRESSION: No acute cardiopulmonary disease with no interval change.
== END 2023-11-24 06:23 | disposition home or self-care (01) ==
LOC: EC 02:35
DX: F10.10 Alcohol abuse, uncomplicated (principal); I45.9 Conduction disorder, unspecified; I10 Essential (primary) hypertension; Z86.59 Personal history of other mental and behavioral disorders
CPT/HCPCS: 36415; 71046; 80053; 82150; 83690; 83735; 84484; 85025; 85610; 85730; 93005; 99285

== ENCOUNTER 2023-11-26 03:07 | Emergency (ER) | payer OTHER ==
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
[2023-11-26 04:58] LABS: ALT 40 U/L (4-49); AST 72 U/L (17-59); African American GFR (CKD) >90 (>60 ml/min/1.73 sqM); Albumin 4.3 g/dL (3.5-5.0); Alkaline Phosphatase 98 U/L (38-126); Anion Gap 10 mmol/L; Blood Urea Nitrogen 4 mg/dL (9-20); Calcium 8.7 mg/dL (8.4-10.2); Carbon Dioxide 23 mmol/L (22-30); Chloride 102 mmol/L (98-107); Glucose 105 mg/dL (74-99); Non-African American GFR(CKD) >90 (>60 ml/min/1.73 sqM); Sodium 135 mmol/L (137-145); Total Bilirubin 0.9 mg/dL (0.2-1.3); Total Protein 8.8 g/dL (6.3-8.2)
[2023-11-26 04:59] LABS: Alcohol 291 mg/dL
[2023-11-26 05:00] LABS: Appearance,Urine Clear (Clear); Bilirubin,Urine Negative (Negative); Blood,Urine Negative (Negative); Color,Urine Colorless; Glucose,Urine (UA) Negative (Negative); Ketones,Urine Negative (Negative); Leukocyte Esterase,Urine Negative (Negative); Nitrite,Urine Negative (Negative); Protein,Urine Negative (Negative); Specific Gravity,Urine 1.002 (1.001-1.035); Urobilinogen,Urine <2.0 mg/dL (<2.0)
[2023-11-26 05:06] LABS: Anisocytosis Slight; HCT 35.6 % (39.0-53.0); HGB 11.6 gm/dL (13.0-17.5); MCH 29.7 pg (25.0-35.0); MCHC 32.6 g/dL (31.0-37.0); MCV 90.9 fL (80.0-100.0); Mean Platelet Volume 9.6; Platelet Count 110 k/uL (150-450); RBC 3.92 m/uL (4.30-5.90); WBC 10.5 k/uL (3.8-10.6)
[2023-11-26] MEDS: LORazepam 1 MG TAB PO STA (05:31)
[2023-11-26 06:15] LABS: Anisocytosis (M) Present; Eosinophils # (M) 0.21 k/uL (0-0.7); Lymphocytes # (M) 2.63 k/uL (1.0-4.8); Monocytes # (M) 1.16 k/uL (0-1.0); Neutrophils # (M) 6.51 k/uL (1.3-7.7); Neutrophils % (M) 62 %; Nucleated Red Blood Cells 0 /100 WBC (0-0); Total Cells Counted 100
--- NOTE | 2023-11-26 06:51 | XR ---
EXAM: XR Right Knee, 3 Views CLINICAL HISTORY: ITS.REASON XR Reason: fell onto knee, pain TECHNIQUE: Three views of the right knee. COMPARISON: XR Knee dated 11/19/23 FINDINGS: Bones/joints: Unremarkable. No acute fracture. No dislocation. Soft tissues: Unremarkable. IMPRESSION: No evidence of acute fracture or dislocation.
[2023-11-26 09:25] VITALS: BP 117/76; PULSE 92; RESP 18; TEMP 98
== END 2023-11-26 09:35 | disposition home or self-care (01) ==
LOC: EC 03:07
DX: S89.91XA Unspecified injury of right lower leg, initial encounter (principal); F10.129 Alcohol abuse with intoxication, unspecified; I10 Essential (primary) hypertension; Z87.891 Personal history of nicotine dependence; Y90.8 Blood alcohol level of 240 mg/100 ml or more; W19.XXXA Unspecified fall, initial encounter
CPT/HCPCS: 36415; 80053; 80320; 81003; 85025; 99284

== ENCOUNTER 2023-12-01 00:11 | Observation (INO) | payer OTHER ==
[2023-12-01] MEDS: SODIUM CHLORIDE 0.9% 1,000 ML IV ONE (00:46)
[2023-12-01] MEDS: LORazepam 2 MG/ML INJ IV STA (00:46)
--- NOTE | 2023-12-01 03:10 | XR ---
EXAM: XR Chest, 1 View CLINICAL HISTORY: XR Reason: Chest Pain TECHNIQUE: Frontal view of the chest. COMPARISON: November 24, 2023 FINDINGS: Lungs: Low lung volumes than previous with mild bronchovascular crowding. No focal consolidation is seen. Pleural space: Unremarkable. No pneumothorax. Heart: Unremarkable. No cardiomegaly. Mediastinum: Unremarkable. Normal mediastinal contour. Bones/joints: Mild scoliosis of the thoracic spine, unchanged. No acute fracture. Upper abdomen: There is no pneumoperitoneum under the diaphragm. IMPRESSION: Low lung volumes than previous with mild bronchovascular crowding. No focal consolidation is seen.
[2023-12-01] MEDS: SODIUM CHLORIDE 0.9% 1,000 ML IV STA (03:12)
--- NOTE | 2023-12-01 03:41 | ED ---
Anxiety HPI - General Source: patient Mode of arrival: ambulatory <Tello Dunn - Last Filed: 12/01/23 03:43> <Stephen Madrid - Last Filed: 12/01/23 04:24> - General Chief Complaint: Anxiety Stated Complaint: anxiety Time Seen by Provider: 12/01/23 00:13 - History of Present Illness Initial Comments: 43-year-old male presenting to the ED with a chief complaint of chest pain. Patient states for the last 3 days has had chest pain to the left side of his chest. Patient notes he has had intermittent palpitations with this as well. No shortness of breath. No abdominal pain. No changes in bowel or bladder habits. No fever or chills. At this time patient is a vague historian and reports that he would like to have his heart checked out. Of note patient is also an alcoholic. Does note history of seizures secondary to alcohol w ithdrawal. States that his last drink was sometime earlier today. (Tello Dunn) - Related Data Home Medications: Home Medications Medication Instructions Recorded Confirmed No Known Home Medications 11/21/23 11/21/23 Allergies/Adverse Reactions: Allergies Allergy/AdvReac Type Severity Reaction Status Date / Time No Known Allergies Allergy Verified 12/01/23 00:30 Review of Systems ROS Other: All systems not noted in ROS Statement are negative. <Tello Dunn - Last Filed: 12/01/23 03:43> ROS Other: All systems not noted in ROS Statement are negative. <Stephen Madrid - Last Filed: 12/01/23 04:24> ROS Statement: Those systems with pertinent positive or pertinent negative responses have been documented in the HPI. Past Medical History Past Medical History: Hypertension, Pneumonia, Seizure Disorder Additional Past Medical History / Comment(s): ETOH History of Any Multi-Drug Resistant Organisms: None Reported Past Surgical History: Joint Replacement, Orthopedic Surgery Additional Past Surgical History / Comment(s): Right knee surgery, left leg incision and drainage for spider bite, jaw surgery 2018 Past Anesthesia/Blood Transfusion Reactions: No Reported Reaction Past Psychological History: Anxiety, No Psychological Hx Reported Smoking Status: Former smoker Past Alcohol Use History: Daily Past Drug Use History: None Reported - Past Family History Sister(s) Family Medical History: Diabetes Mellitus Mother Family Medical History: Diabetes Mellitus Additional Family Medical History / Comment(s): from sudhakar johnsons syndrome Father Family Medical History: Diabetes Mellitus, Myocardial Infarction ([place]) Additional Family Medical History / Comment(s): from dm complications <MonaTello - Last Filed: 12/01/23 03:43> General Exam Limitations: no limitations General appearance: alert, in no apparent distress Eye exam: Present: normal appearance Neck exam: Present: normal inspection Respiratory exam: Present: normal lung sounds bilaterally Cardiovascular Exam: Present: regular rate GI/Abdominal exam: Present: soft Back exam: Present: normal inspection Neurological exam: Present: alert, oriented X3 <Ravi Dunnua - Last Filed: 12/01/23 03:43> Course Vital Signs 12/01/23 00:50 Temperature 98.2 F Pulse Rate 98 Respiratory 18 Rate Blood Pressure 122/79 O2 Sat by Pulse 98 Oximetry Medical Decision Making <Tello Dunn - Last Filed: 12/01/23 03:43> - Lab Data Result diagrams: 12/01/23 01:37 12/01/23 01:37 <Stephen Madrid - Last Filed: 12/01/23 04:24> - Medical Decision Making Was pt. sent in by a medical professional or institution (DEVIN Woo, AIR QUALITY SPECIALIST, urgent care, hospital, or long-term...) When possible be specific @ -No Did you speak to anyone other than the patient for history (EMS, parent, family, police, friend...)? What history was obtained from this source @ -No Did you review nursing and triage notes (agree or disagree)? Why? @ -I reviewed and agree with nursing and triage notes Were old charts reviewed (outside hosp., previous admission, EMS record, old EKG, old radiological studies, urgent care reports/EKG's, long-term records)? Report findings @ -No old charts were reviewed Differential Diagnosis (chest pain, altered mental status, abdominal pain women, abdominal pain men, vaginal bleeding, weakness, fever, dyspnea, syncope, headache, dizziness, GI bleed, back pain, seizure, CVA, palpatations, mental health, musculoskeletal)? @ -Differential Chest Pain: Stable Angina, Unstable Angina, STEMI, NSTEMI Aortic Dissection, Pneumothorax, Musculoskeletal, Esophageal Spasm GERD, Cholecystitis, Pancreatitis, Zoster, this is not meant to be an all-inclusive list. EKG interpreted by me (3pts min.). @ -Patient refused EKG X-rays interpreted by me (1pt min.). @ -Chest x-ray interpreted me showing lower lung volumes than previous. No focal consolidation. CT interpreted by me (1pt min.). @ -None done U/S interpreted by me (1pt. min.). @ -None done What testing was considered but not performed or refused? (CT, X-rays, U/S, labs)? Why? @ -None What meds were considered but not given or refused? Why? @ -None Did you discuss the management of the patient with other professionals (professionals i.e. , PA, AIR QUALITY SPECIALIST, lab, RT, psych nurse, mental health social worker, book author, teacher, executive vice president and chief operating officer, case finisher)? Give summary @ -No Was smoking cessation discussed for >3mins.? @ -No Was critical care preformed (if so, how long)? @ -No Were there social determinants of health that impacted care today? How? (Homelessness, low income, unemployed, alcoholism, drug addiction, transp ortation, low edu. Level, literacy, decrease access to med. care, shelter, rehab)? @ -No Was there de-escalation of care discussed even if they declined (Discuss DNR or withdrawal of care, Hospice)? DNR status @ -No What co-morbidities impacted this encounter? (DM, HTN, Smoking, COPD, CAD, Cancer, CVA, ARF, Chemo, Hep., AIDS, mental health diagnosis, sleep apnea, morbid obesity)? @ -Alcoholism Was patient admitted / discharged? Hospital course, mention meds given and rou te, prescriptions, significant lab abnormalities, going to OR and other pertinent info. @ -Pending 43-year-old male with a past medical history significant for alcoholism presenting to the ED with a chief complaint of chest pain. Patient states that over the past 3 days has had some pain on the left side of his chest with some associated palpitations. Also notes history of alcoholism and states his last drink was a few hours ago and does note some anxiety with this as well. Patient refused EKG. Chest x-ray revealed no acute processes however did appear to have lower lung volumes compared to prior. At this time laboratory studies are pending and case signed out to my attending physician Dr. Sotelo for further ration/disposition (Tello Dunn) Patient care signed out to me by previous shift physician assistant refinery operator, Tello Dunn. Briefly, patient is a 43-year-old male well-known to emergency department for alcohol intoxication. He was complaining of chest pain. Plan at signout was to follow-up with pending laboratory studies. Patient apparently refused EKG despite complaining of chest pain. Patient intoxicated again Laboratory evaluation had resulted. CBC is unremarkable. Coag panel is negative. Metabolic panel within acceptable limits. Troponin interestingly is 0.033. Previous troponins reviewed patient has not had any remotely elevated troponins. Urinalysis is negative. Serum alcohol is 220. Patient reevaluated at the bedside inebriated and uncooperative. He initially refused EKG however he is told that it is imperative. Patient given aspirin will be admitted for medical monitoring, serial troponins and cardiology consultation. (Stephen Madrid) - Lab Data Lab Results 12/01/23 12/01/23 12/01/23 Range/Units 01:37 01:37 01:37 WBC 4.9 (3.8-10.6) k/uL RBC 4.17 L (4.30-5.90) m/uL Hgb 12.3 L (13.0-17.5) gm/dL Hct 38.9 L (39.0-53.0) % MCV 93.2 (80.0-100.0) fL MCH 29.4 (25.0-35.0) pg MCHC 31.6 (31.0-37.0) g/dL RDW 17.0 H (11.5-15.5) % Plt Count 160 (150-450) k/uL MPV 8.2 Neutrophils % 47 % Lymphocytes % 38 % Monocytes % 8 % Eosinophils % 2 % Basophils % 1 % Neutrophils # 2.3 (1.3-7.7) k/uL Lymphocytes # 1.9 (1.0-4.8) k/uL Monocytes # 0.4 (0-1.0) k/uL Eosinophils # 0.1 (0-0.7) k/uL Basophils # 0.0 (0-0.2) k/uL Anisocytosis Slight PT 11.2 (10.0-12.5) sec INR 1.0 (<1.2) APTT 23.8 (22.0-30.0) sec Sodium (137-145) mmol/L Potassium (3.5-5.1) mmol/L Chloride (98-107) mmol/L Carbon Dioxide (22-30) mmol/L Anion Gap mmol/L BUN (9-20) mg/dL Creatinine (0.66-1.25) mg/dL Est GFR (CKD-EPI)AfAm (>60 ml/min/1.73 sqM) Est GFR (CKD-EPI)NonAf (>60 ml/min/1.73 sqM) Glucose (74-99) mg/dL Calcium (8.4-10.2) mg/dL Magnesium (1.6-2.3) mg/dL Total Bilirubin (0.2-1.3) mg/dL AST (17-59) U/L ALT (4-49) U/L Alkaline Phosphatase (38-126) U/L Troponin I (0.000-0.034) ng/mL Total Protein (6.3-8.2) g/dL Albumin (3.5-5.0) g/dL Urine Color Colorless Urine Appearance Clear (Clear) Urine pH 5.5 (5.0-8.0) Ur Specific [place] 1.002 (1.001-1.035) Urine Protein Negative (Negative) Urine Glucose (UA) Negative (Negative) Urine Ketones Negative (Negative) Urine Blood Trace H (Negative) Urine Nitrite Negative (Negative) Urine Bilirubin Negative (Negative) Urine Urobilinogen <2.0 (<2.0) mg/dL Ur Leukocyte Esterase Trace H (Negative) Urine RBC 1 (0-5) /hpf Urine WBC 2 (0-5) /hpf Urine Bacteria Rare H (None) /hpf Serum Alcohol mg/dL 12/01/23 12/01/23 Range/Units 01:37 01:37 WBC (3.8-10.6) k/uL RBC (4.30-5.90) m/uL Hgb (13.0-17.5) gm/dL Hct (39.0-53.0) % MCV (80.0-100.0) fL MCH (25.0-35.0) pg MCHC (31.0-37.0) g/dL RDW (11.5-15.5) % Plt Count (150-450) k/uL MPV Neutrophils % % Lymphocytes % % Monocytes % % Eosinophils % % Basophils % % Neutrophils # (1.3-7.7) k/uL Lymphocytes # (1.0-4.8) k/uL Monocytes # (0-1.0) k/uL Eosinophils # (0-0.7) k/uL Basophils # (0-0.2) k/uL Anisocytosis PT (10.0-12.5) sec INR (<1.2) APTT (22.0-30.0) sec Sodium 139 (137-145) mmol/L Potassium 4.2 (3.5-5.1) mmol/L Chloride 106 (98-107) mmol/L Carbon Dioxide 22 (22-30) mmol/L Anion Gap 11 mmol/L BUN 2 L (9-20) mg/dL Creatinine 0.56 L (0.66-1.25) mg/dL Est GFR (CKD-EPI)AfAm >90 (>60 ml/min/1.73 sqM) Est GFR (CKD-EPI)NonAf >90 (>60 ml/min/1.73 sqM) Glucose 101 H (74-99) mg/dL Calcium 8.5 (8.4-10.2) mg/dL Magnesium 1.7 (1.6-2.3) mg/dL Total Bilirubin 0.6 (0.2-1.3) mg/dL AST 88 H (17-59) U/L ALT 38 (4-49) U/L Alkaline Phosphatase 147 H (38-126) U/L Troponin I 0.033 (0.000-0.034) ng/mL Total Protein 8.2 (6.3-8.2) g/dL Albumin 3.9 (3.5-5.0) g/dL Urine Color Urine Appearance (Clear) Urine pH (5.0-8.0) Ur Specific [place] (1.001-1.035) Urine Protein (Negative) Urine Glucose (UA) (Negative) Urine Ketones (Negative) Urine Blood (Negative) Urine Nitrite (Negative) Urine Bilirubin (Negative) Urine Urobilinogen (<2.0) mg/dL Ur Leukocyte Esterase (Negative) Urine RBC (0-5) /hpf Urine WBC (0-5) /hpf Urine Bacteria (None) /hpf Serum Alcohol 220 H* mg/dL Disposition <Tello Dunn - Last Filed: 12/01/23 03:43> Decision Time: 04:24 <Stephen Madrid - Last Filed: 12/01/23 04:24> Clinical Impression: Elevated troponin Disposition: ADMITTED IP TO THIS HOSP Condition: Fair Referrals: None,Stated [Primary Care Provider] - 1-2 days
[2023-12-01 03:51] LABS: Anisocytosis Slight; Basophils % (A) 1 %; Eosinophils # (A) 0.1 k/uL (0-0.7); Eosinophils % (A) 2 %; HCT 38.9 % (39.0-53.0); HGB 12.3 gm/dL (13.0-17.5); Lymphocytes # (A) 1.9 k/uL (1.0-4.8); Lymphocytes % (A) 38 %; MCH 29.4 pg (25.0-35.0); MCHC 31.6 g/dL (31.0-37.0); MCV 93.2 fL (80.0-100.0); Mean Platelet Volume 8.2; Monocytes # (A) 0.4 k/uL (0-1.0); Monocytes % (A) 8 %; Neutrophils # (A) 2.3 k/uL (1.3-7.7); Neutrophils % (A) 47 %; Platelet Count 160 k/uL (150-450); RBC 4.17 m/uL (4.30-5.90); WBC 4.9 k/uL (3.8-10.6)
[2023-12-01 03:59] LABS: Partial Thromboplastin Time 23.8 sec (22.0-30.0); Prothrombin Time 11.2 sec (10.0-12.5)
[2023-12-01 04:00] LABS: Appearance,Urine Clear (Clear); Bacteria,Urine Rare /hpf; Bilirubin,Urine Negative (Negative); Blood,Urine Trace (Negative); Color,Urine Colorless; Glucose,Urine (UA) Negative (Negative); Ketones,Urine Negative (Negative); Leukocyte Esterase,Urine Trace (Negative); Nitrite,Urine Negative (Negative); PH, Urine 5.5 (5.0-8.0); Protein,Urine Negative (Negative); RBC,Urine 1 /hpf (0-5); Specific Gravity,Urine 1.002 (1.001-1.035); Urobilinogen,Urine <2.0 mg/dL (<2.0); WBC,Urine 2 /hpf (0-5)
[2023-12-01 04:01] LABS: ALT 38 U/L (4-49); AST 88 U/L (17-59); African American GFR (CKD) >90 (>60 ml/min/1.73 sqM); Albumin 3.9 g/dL (3.5-5.0); Alkaline Phosphatase 147 U/L (38-126); Anion Gap 11 mmol/L; Blood Urea Nitrogen 2 mg/dL (9-20); Calcium 8.5 mg/dL (8.4-10.2); Carbon Dioxide 22 mmol/L (22-30); Chloride 106 mmol/L (98-107); Glucose 101 mg/dL (74-99); Magnesium 1.7 mg/dL (1.6-2.3); Non-African American GFR(CKD) >90 (>60 ml/min/1.73 sqM); Potassium 4.2 mmol/L (3.5-5.1); Sodium 139 mmol/L (137-145); Total Bilirubin 0.6 mg/dL (0.2-1.3); Total Protein 8.2 g/dL (6.3-8.2)
[2023-12-01 04:11] LABS: Alcohol 220 mg/dL
[2023-12-01] MEDS ORDERED: LORazepam 2 MG/ML INJ IV PRN ×2 (04:24)
[2023-12-01] MEDS: ASPIRIN 81 MG PO STA (04:49)
[2023-12-01] MEDS: THIAMINE 100 MG/ML 2 ML VIAL IM STA (04:56)
--- NOTE | 2023-12-01 09:06 | P.CRDCN ---
History of Present Illness History of present illness: HISTORY OF PRESENT ILLNESS: This is a 43-year-old male with a past medical history significant for anxiety and alcohol abuse. Patient does not follow with a furniture painter. We have been ask ed to see the patient in consultation for chest pain. Patient examined at the bedside. Patient states he has been having chest pain over the past couple days. He denies any radiation of the pain. Denies any nausea or vomiting. He does report having palpitations as well. He reports yesterday morning he played basketball with friends and did not have any chest pain or shortness of breath. He states yesterday evening around 10:00 at night he was sitting on the curb drinking beer when he began to have chest discomfort. The patient is a daily drinker and reports drinking beer and hard liquor. He was acutely intoxicated upon admission with an alcohol level of 220. The patient denies having any previous cardiac testing performed. He states his dad has a history of CAD and believes he had a heart attack in his 50s. He believes his mother has a history of CAD as well but he is unsure of any of the details. It is noted that this is the patient's 6th visit to the emergency room this month. DIAGNOSTICS: - EKG reveals sinus mechanism with no signs of acute ischemia. - Chest xray low lung volumes than previous with mild bronchovascular crowding. No focal consolidation is seen.. - Laboratory data: WBC 4.9. Hemoglobin 12.3. Platelet count 160. Sodium 139. Potassium 4.2. BUN 2. Creatinine 0.56. Troponin negative x 3. - Current home cardiac medications include none. REVIEW OF SYSTEMS: At the time of my exam: CONSTITUTIONAL: Denies fever or chills. HEENT: Denies blurred vision, vision changes, or eye pain. Denies hemoptysis CARDIOVASCULAR: Denies chest pain. Denies orthopnea. Denies PND. Denies palpitations RESPIRATORY: Denies shortness of breath. GASTROINTESTINAL: Denies abdominal pain. Denies nausea or vomiting. HEMATOLOGIC: Denies bleeding disorders. GENITOURINARY: Denies any blood in urine. SKIN: Denies pruitis. Denies rash. PHYSICAL EXAM: VITAL SIGNS: Reviewed. GENERAL: Well-developed in no acute distress. HEENT: Head is normocephalic. Pupils are equal, round. Sclerae anicteric. Mucous membranes of the mouth are moist. Neck supple. No JVD or thyromegaly LUNGS: Respirations even and unlabored. Lungs essentially clear to auscultation bilaterally. HEART: Regular rate and rhythm. S1 and S2 heard. ABDOMEN: Soft. Nondistended. Nontender. EXTREMITIES: Normal range of motion. No clubbing or cyanosis. Peripheral pulses intact. No lower extremity edema NEUROLOGIC: Awake and alert. Oriented x 3. ASSESSMENT: Chest pain, atypical, troponin negative x 3 Acute alcohol intoxication Palpitations History of alcohol abuse Anxiety Former nicotine dependence PLAN: An acute coronary event has been ruled out Obtain 2D echo to assess cardiac structure and function Continue telemetry monitoring to assess for any arrhythmias Decrease aspirin to 81 mg daily Obtain lipid panel Patient to undergo stress echocardiogram tomorrow Further recommendations pending patient course Nurse practitioner note has been reviewed by physician. Signing provider agrees with the documented findings, assessment, and plan of care documented by RUSSIAN LANGUAGE PROFESSOR as a scribe. Past Medical History Past Medical History: Hypertension, Pneumonia, Seizure Disorder Additional Past Medical History / Comment(s): ETOH History of Any Multi-Drug Resistant Organisms: None Reported Past Surgical History: Joint Replacement, Orthopedic Surgery Additional Past Surgical History / Comment(s): Right knee surgery, left leg incision and drainage for spider bite, jaw surgery 2018 Past Anesthesia/Blood Transfusion Reactions: No Reported Reaction Past Psychological History: Anxiety, No Psychological Hx Reported Smoking Status: Former smoker Past Alcohol Use History: Daily Additional Past Alcohol Use History / Comment(s): Drinks 4-5 tall boys of beer a day and a couple of shots Past Drug Use History: None Reported - Past Family History Sister(s) Family Medical History: Diabetes Mellitus Mother Family Medical History: Diabetes Mellitus Additional Family Medical History / Comment(s): from sudhakar johnsons syndrome Father Family Medical History: Diabetes Mellitus, Myocardial Infarction ([place]) Additional Family Medical History / Comment(s): from dm complications Medications and Allergies Home Medications Medication Instructions Recorded Confirmed Type No Known Home Medications 11/21/23 11/21/23 History Allergies Allergy/AdvReac Type Severity Reaction Status Date / Time No Known Allergies Allergy Verified 12/01/23 00:30 Physical Exam Vitals: Vital Signs Temp Pulse Pulse Resp BP BP Pulse Ox 12/01/23 06:19 98.2 F 108 H 18 114/73 96 12/01/23 00:50 98.2 F 98 18 122/79 98 Intake and Output 11/30/23 12/01/23 12/01/23 22:59 06:59 14:59 Other: # Voids 0 Weight 72.575 kg Results 12/01/23 01:37 12/01/23 01:37 Cardiac Enzymes 12/01/23 12/01/23 12/01/23 Range/Units 01:37 01:37 04:56 AST 88 H (17-59) U/L Troponin I 0.033 <0.012 (0.000-0.034) ng/mL Coagulation 12/01/23 Range/Units 01:37 PT 11.2 (10.0-12.5) sec APTT 23.8 (22.0-30.0) sec CBC 12/01/23 Range/Units 01:37 WBC 4.9 (3.8-10.6) k/uL RBC 4.17 L (4.30-5.90) m/uL Hgb 12.3 L (13.0-17.5) gm/dL Hct 38.9 L (39.0-53.0) % Plt Count 160 (150-450) k/uL Comprehensive Metabolic Panel 12/01/23 Range/Units 01:37 Sodium 139 (137-145) mmol/L Potassium 4.2 (3.5-5.1) mmol/L Chloride 106 (98-107) mmol/L Carbon Dioxide 22 (22-30) mmol/L BUN 2 L (9-20) mg/dL Creatinine 0.56 L (0.66-1.25) mg/dL Glucose 101 H (74-99) mg/dL Calcium 8.5 (8.4-10.2) mg/dL AST 88 H (17-59) U/L ALT 38 (4-49) U/L Alkaline Phosphatase 147 H (38-126) U/L Total Protein 8.2 (6.3-8.2) g/dL Albumin 3.9 (3.5-5.0) g/dL Current Medications Generic Name Dose Route Start Last Admin Trade Name Freq PRN Reason Stop Dose Admin Aspirin 325 mg 12/02/23 09:00 Aspirin 325 Mg Tab PO DAILY VIJAYA Sodium Chloride 1,000 mls @ 50 mls/hr 12/01/23 00:55 12/01/23 03:12 Saline 0.9% IV 12/01/23 20:54 50 mls/hr .Q20H STA Administration Lorazepam 1 mg 12/01/23 04:24 Lorazepam 2 Mg/Ml Inj IV Q1HR PRN CIWA 10 to 15 Lorazepam 1 mg 12/01/23 04:24 Lorazepam 2 Mg/Ml Inj IV Q2HR PRN CIWA 8 or 9 Lorazepam 2 mg 12/01/23 04:24 Lorazepam 2 Mg/Ml Inj IV 12/03/23 04:25 Q10M PRN CIWA 16 or higher Thiamine HCl 100 mg 12/02/23 09:00 Thiamine 100 Mg Tab PO DAILY VIJAYA Intake and Output 11/30/23 12/01/23 12/01/23 22:59 06:59 14:59 Other: # Voids 0 Weight 72.575 kg 12/01/23 01:37 12/01/23 01:37
--- NOTE | 2023-12-01 11:36 | P.HPIM ---
History of Present Illness Patient is a 43-year-old male came in with complaints of chest pain, which appear to be noncardiac nonradiating substernal denies any association with food started while he was drinking beer with his friends patient does drink alcohol daily basis about 4-5 beers along with 2 shots of hard liquor. EKG did not show any acute ST-T wave changes chest x-ray did not show pneumonia troponin will be ordered. Patient says he is trying to quit alcohol he is willing to quit alcohol never had any withdrawals in the past. Patient does smoke as well REVIEW OF SYSTEMS: CONSTITUTIONAL: No fever, no malaise, no fatigue. HEENT: No recent visual problems or hearing problems. Denied any sore throat. CARDIOVASCULAR: No orthopnea, PND, no palpitations, no syncope. PULMONARY: No shortness of breath, no cough, no hemoptysis. GASTROINTESTINAL: No diarrhea, no nausea, no vomiting, no abdominal pain. NEUROLOGICAL: No headaches, no weakness, no numbness. HEMATOLOGICAL: Denies any bleeding or petechiae. GENITOURINARY: Denies any burning micturition, frequency, or urgency. MUSCULOSKELETAL/RHEUMATOLOGICAL: Denies any joint pain, swelling, or any muscle pain. ENDOCRINE: Denies any polyuria or polydipsia. The rest of the 14-point review of systems is negative. PHYSICAL EXAMINATION: GENERAL: The patient is alert and oriented x3, not in any acute distress. Well developed, well nourished. HEENT: Pupils are round and equally reacting to light. EOMI. No scleral icterus. No conjunctival pallor. Normocephalic, atraumatic. No pharyngeal erythema. No thyromegaly. CARDIOVASCULAR: S1 and S2 present. No murmurs, rubs, or gallops. PULMONARY: Chest is clear to auscultation, no wheezing or crackles. ABDOMEN: Soft, nontender, nondistended, normoactive bowel sounds. No palpable organomegaly. MUSCULOSKELETAL: No joint swelling or deformity. EXTREMITIES: No cyanosis, clubbing, or pedal edema. NEUROLOGICAL: Gross neurological examination did not reveal any focal deficits. SKIN: No rashes. Assessment and plan -Chest pain atypical troponins were negative, cardiology evaluated the patient recommending stress test tomorrow. Will order renal diet There is a possibility this can be gastroesophageal reflux disease considering his alcohol history patient will be started on Protonix -Alcohol intoxication -Alcohol abuse and dependence patient will be monitored for withdrawals overnight counseling regarding alcohol abuse was provided -Nicotine use: Counseling was provided - DVT prophylaxis: Ambulation Past Medical History Past Medical History: Hypertension, Pneumonia, Seizure Disorder Additional Past Medical History / Comment(s): ETOH History of Any Multi-Drug Resistant Organisms: None Reported Past Surgical History: Joint Replacement, Orthopedic Surgery Additional Past Surgical History / Comment(s): Right knee surgery, left leg incision and drainage for spider bite, jaw surgery 2018 Past Anesthesia/Blood Transfusion Reactions: No Reported Reaction Past Psychological History: Anxiety, No Psychological Hx Reported Smoking Status: Former smoker Past Alcohol Use History: Daily Additional Past Alcohol Use History / Comment(s): Drinks 4-5 tall boys of beer a day and a couple of shots Past Drug Use History: None Reported - Past Family History Sister(s) Family Medical History: Diabetes Mellitus Mother Family Medical History: Diabetes Mellitus Additional Family Medical History / Comment(s): from sudhakar johnsons syndrome Father Family Medical History: Diabetes Mellitus, Myocardial Infarction ([place]) Additional Family Medical History / Comment(s): from dm complications Medications and Allergies Home Medications Medication Instructions Recorded Confirmed Type No Known Home Medications 11/21/23 11/21/23 History Allergies Allergy/AdvReac Type Severity Reaction Status Date / Time No Known Allergies Allergy Verified 12/01/23 11:32 Physical Exam Vitals: Vital Signs Temp Pulse Pulse Resp BP BP Pulse Ox 12/01/23 06:19 98.2 F 108 H 18 114/73 96 12/01/23 00:50 98.2 F 98 18 122/79 98 Intake and Output 11/30/23 12/01/23 12/01/23 22:59 06:59 14:59 Other: # Voids 0 Weight 72.575 kg Results CBC & Chem 7: 12/01/23 01:37 12/01/23 01:37 Labs: Abnormal Lab Results - Last 24 Hours (Table) 12/01/23 12/01/23 12/01/23 Range/Units 01:37 01:37 01:37 RBC 4.17 L (4.30-5.90) m/uL Hgb 12.3 L (13.0-17.5) gm/dL Hct 38.9 L (39.0-53.0) % RDW 17.0 H (11.5-15.5) % BUN 2 L (9-20) mg/dL Creatinine 0.56 L (0.66-1.25) mg/dL Glucose 101 H (74-99) mg/dL AST 88 H (17-59) U/L Alkaline Phosphatase 147 H (38-126) U/L Urine Blood Trace H (Negative) Ur Leukocyte Esterase Trace H (Negative) Urine Bacteria Rare H (None) /hpf Serum Alcohol 220 H* mg/dL Thrombosis Risk Factor Assmnt - Choose All That Apply Any of the Below Risk Factors Present?: No Other Risk Factors: No Other congenital or acquired thrombophilia - If yes, enter type in comment: No Thrombosis Risk Factor Assessment Level: Very Low Risk
[2023-12-01] MEDS: PANTOPRAZOLE 40 MG/10 ML VIAL IVP SCH (13:41)
[2023-12-02] MEDS: MELATONIN 5 MG TABLET PO SCH (02:57)
[2023-12-02 08:02] VITALS: TEMP 98.8
[2023-12-02] MEDS ORDERED: ASPIRIN 325 MG TAB PO SCH (09:00)
[2023-12-02 09:14] LABS: Chol/HDL Ratio 1.69 Ratio; LDL Cholesterol,Calculated 37.6 mg/dL (0.0-131.0); VLDL Calculation 10.92 mg/dL (5.00-40.00)
--- NOTE | 2023-12-02 10:20 | P.PN ---
Subjective Progress Note Date: 12/02/23 HISTORY OF PRESENT ILLNESS: This is a 43-year-old male with a past medical history significant for anxiety and alcohol abuse. Patient does not follow with a stull hewer. We have been asked to see the patient in consultation for chest pain. Patient examined at the bedside. Patient states he has been having chest pain over the past couple days. He denies any radiation of the pain. Denies any nausea or vomiting. He does report having palpitations as well. He reports yesterday morning he played basketball with friends and did not have any chest pain or shortness of breath. He states yesterday evening around 10:00 at night he was sitting on the curb drinking beer when he began to have chest discomfort. The patient is a daily drinker and reports drinking beer and hard liquor. He was acutely intoxicated upon admission with an alcohol level of 220. The patient denies having any previous cardiac testing performed. He states his dad has a history of CAD and believes he had a heart attack in his 50s. He believes his mother has a history of CAD as well but he is unsure of any of the details. It is noted that this is the patient's 6th visit to the emergency room this month. DIAGNOSTICS: - EKG reveals sinus mechanism with no signs of acute ischemia. - Chest xray low lung volumes than previous with mild bronchovascular crowding. No focal consolidation is seen.. - Laboratory data: WBC 4.9. Hemoglobin 12.3. Platelet count 160. Sodium 139. Potassium 4.2. BUN 2. Creatinine 0.56. Troponin negative x 3. - Current home cardiac medications include none. 12/02 Patient is vague with responses to questions regarding chest pain and shortness of breath. He states he normally walks about a mile a day without any problems for the last couple months he seems to have more trouble. He was able to play basketball without any difficulty as noted above. He is scheduled for stress t est today. Heart rate is 86, blood pressure 127/81, pulse ox 96% on room air. Triglycerides 54, cholesterol 119, LDL 37, HDL 70. PHYSICAL EXAM: VITAL SIGNS: Reviewed. GENERAL: Well-developed in no acute distress. HEENT: Head is normocephalic. Pupils are equal, round. Sclerae anicteric. Mucous membranes of the mouth are moist. Neck supple. No JVD or thyromegaly LUNGS: Respirations even and unlabored. Lungs essentially clear to auscultation bilaterally. HEART: Regular rate and rhythm. S1 and S2 heard. ABDOMEN: Soft. Nondistended. Nontender. EXTREMITIES: Normal range of motion. No clubbing or cyanosis. Peripheral pulses intact. No lower extremity edema NEUROLOGIC: Awake and alert. Oriented x 3. ASSESSMENT: Chest pain, atypical, troponin negative x 3 Acute alcohol intoxication Palpitations History of alcohol abuse Anxiety Former nicotine dependence PLAN: An acute coronary event has been ruled out Obtain 2D echo to assess cardiac structure and function Continue aspirin to 81 mg daily Patient to undergo stress echocardiogram today If stress test and echocardiogram are unremarkable, patient is cleared for discharge home today. Nurse practitioner note has been reviewed by physician. Signing provider agrees with the documented findings, assessment, and plan of care documented by GENERAL LABORER as a scribe. Objective - Vital Signs Vital signs: Vital Signs Temp 99.5 F 12/02/23 02:07 Pulse 110 H 12/02/23 02:07 Resp 15 12/02/23 02:07 BP 129/87 12/02/23 02:07 Pulse Ox 99 12/02/23 05:00 FiO2 Intake & Output 12/01/23 12/02/23 12/02/23 18:59 06:59 18:59 Output Total 580 Balance -580 Output: Urine 580 Other: Voiding Method Toilet # Voids 2 - Labs CBC & Chem 7: 12/01/23 01:37 12/01/23 01:37
[2023-12-02] MEDS: ASPIRIN 81 MG PO SCH (10:47)
[2023-12-02] MEDS: THIAMINE 100 MG TAB PO SCH (10:47)
[2023-12-02] MEDS: LORazepam 2 MG/ML INJ IV PRN (10:47)
--- NOTE | 2023-12-02 11:32 | CA ---
Transthoracic Echo Report Name: Lety Wallace Age: 43 Gender: M : 1980 Exam Date: 12/02/2023 09:51 Exam Location: [facility] Ht (in): 67 Wt (lb): 160 Ordering Physician: Bita Dia Attending/Referring Phys: [id number], South Purse Seiner Ruma Foley RDCS Procedure CPT: Indications: LV function, CP Cardiac Hx: Technical Quality: Fair Contrast 1: Total Dose (mL): Contrast 2: Total Dose (mL): MEASUREMENTS (Male / Female) Normal Values 2D ECHO LV Diastolic Diameter PLAX 4.1 cm 4.2 - 5.9 / 3.9 - 5.3 cm LV Systolic Diameter PLAX 2.5 cm IVS Diastolic Thickness 1.1 cm 0.6 - 1.0 / 0.6 - 0.9 cm LVPW Diastolic Thickness 1.0 cm 0.6 - 1.0 / 0.6 - 0.9 cm LV Relative Wall Thickness 0.5 RV Internal Dim ED PLAX 3.4 cm LA Volume 31.6 cm??? 18 - 58 / 22 - 52 cm??? LA Volume Index 17.0 cm???/m??? 16 - 28 cm???/m??? M-MODE Aortic Root Diameter MM 2.9 cm LA Systolic Diameter MM 3.1 cm LA Ao Ratio MM 1.1 AV Cusp Separation MM 2.0 cm DOPPLER AV Peak Velocity 99.6 cm/s AV Peak Gradient 4.0 mmHg AV Mean Velocity 67.8 cm/s AV Mean Gradient 2.0 mmHg AV Velocity Time Integral 16.5 cm LVOT Peak Velocity 99.7 cm/s LVOT Peak Gradient 4.0 mmHg LVOT Velocity Time Integral 16.2 cm MV Area PHT 3.1 cm??? Mitral E Point Velocity 67.4 cm/s Mitral A Point Velocity 63.0 cm/s Mitral E to A Ratio 1.1 MV Deceleration Time 246.2 ms MV E' Velocity 10.2 cm/s Mitral E to MV E' Ratio 6.6 FINDINGS Left Ventricle Normal Left ventricular size, wall thickness, systolic function with no obvious regional wall motion abnormalities. Normal Left ventricular diastolic filling pattern. Left ventricular ejection fraction is estimated at 55-60 %. Right Ventricle Normal right ventricular size and function. Right ventricular systolic pressure within normal limits. Right Atrium Normal right atrial size. Left Atrium Normal left atrial size. Mitral Valve Structurally normal mitral valve. No mitral stenosis, or prolapse. Trace mitral regurgitation. Aortic Valve Trileaflet aortic valve. No aortic valve stenosis or regurgitation. Tricuspid Valve Structurally normal tricuspid valve. Mild tricuspid regurgitation. Pulmonic Valve Structurally normal pulmonic valve. Pericardium No pericardial effusion. Aorta Normal size aortic root and proximal ascending aorta. CONCLUSIONS 1. Normal left ventricle size and systolic function 2. Trace mitral and mild tricuspid regurgitation Previewed by: Dr. Leticia Loza MD (Electronically Signed) Final Date: 02 December 2023 11:31
--- NOTE | 2023-12-02 12:02 | CA ---
Stress Echo Report Lety Wallace Age: 43 Gender: M : 1980 Exam Date: 12/02/2023 09:38 Exam Location: [facility] Ht (in): 68 Wt (lb): 170 Ordering Physician: Bita Dia Referring Physician: [id number] Hybrid Powertrain Development Engineer: Eren Chairez Technologist Procedure CPT: Indication: CP ICD-9 Codes: Rhythm: Patient History: Cardiac Medications: SEE CAHRT Medications in past 24 hours: Contrast: N/A Stress Results Protocol: Cooper Total dose(mL): NA Exercise Duration (min:sec): 7:[address] Depression (mm): 0 Angina Score: 0 Delgado Score: 7.07 METS: 8.5 Resting HR: 94 Resting BP: 131 / 93 Peak HR: 173 Peak BP: 170 / 86 Max Predicted HR: 178 97 % Max Predicted HR Target HR: 151 Double Product: [id number] Stress Summary: The patient's target heart rate was achieved BP Response: Normal Reason for Termination: Reached target heart rate or work-load Cardiac Symptoms: NO SYMPTOMS ECG Analysis Resting ECG: Normal sinus rhythm, normal ECG Stress ECG: No abnormal ST/T wave changes with exercise Arrhythmia: None Echo Analysis Resting Echo: Normal resting echocardiogram. Peak Echo Analysis: Normal treadmill stress echocardiogram. MEASUREMENTS (Male/Female) Normal Values CONCLUSIONS Patient falls into low-risk group (DTS >= +5). This associates the patient with an annual CV mortality <= 0.5%. 1. Average exercise tolerance with no evidence of electrocardiographic stress-induced ischemia 2. Normal stress echocardiogram with no evidence of stress induced ischemia Dr. Leticia Loza MD (Electronically Signed) Final Date: 02 December 2023 12:02
[2023-12-02] MEDS: chlordiazePOXIDE 25 MG CAP PO STA (14:25)
[2023-12-02 14:46] VITALS: RESP 14
[2023-12-02 15:16] VITALS: BP 125/87; PULSE 97
--- NOTE | 2023-12-07 09:29 | P.DS ---
Providers Date of admission: 12/01/23 04:22 Expected date of discharge: 12/02/23 Attending physician: Jabari Maharaj Consults: 12/01/23 04:22 Consult Physician Urgent Consulting Provider: Luis Alberto Glaser Consult Reason/Comments: chest pain Do you want consulting provider notified?: Yes Primary care physician: Stated None Hospital Course: Final diagnosis -Chest pain atypical troponins were negative, status post stress test which was negative -gastroesophageal reflux disease -Alcohol intoxication -Alcohol abuse and dependence, no active withdrawals noted -Nicotine use: Counseling was provided -Medication noncompliance GI prophylaxis DVT prophylaxis Full code Discharge disposition Patient is being discharged in a stable condition with guarded prognosis to home. Patient will follow-up with Dr. Cho to establish in the outpatient setting upon discharge. Patient is to continue with outpatient follow-up with cardiology as scheduled. Total time taken is greater than 35 minutes. Hospital course This is a 43year-old male who was recently admitted with alcohol intoxication along with chest pain. Patient was evaluated by cardiology recommending stress test which was negative as well as being continued on CIWA protocol. Patient not actively withdrawing and will give a taper and patient is following up in the outpatient setting with inpatient alcohol rehab. Patient instructed to follow-up to establish with a primary care provider on discharge. Patient has been cleared by cardiology. Please refer to other consultation notes for further HPI. Currently no reports of chest pain, shortness of breath, or palpitations. Patient is afebrile. No reports of nausea or vomiting and patient is tolerating diet. Patient will be discharged today. High risk for readmissions given patient's continued alcohol use and noncompliance. Patient has had multiple ER visits and hospitalizations for this. Physical exam: Gen: This is a 43-year-old male who is awake, alert oriented x 3, well- developed, well-nourished HEENT: Head is atraumatic, normocephalic. Pupils equal, round. Sclerae is anicteric. NECK: Supple. No JVD. No lymphadenopathy. No thyromegaly. LUNGS: Clear to auscultation. No wheezes or rhonchi. No intercostal retractions. HEART: Regular rate and rhythm. No murmur. ABDOMEN: Soft. Bowel sounds are present. No masses. No tenderness. EXTREMITIES: No pedal edema. No calf tenderness. NEUROLOGICAL: Patient is awake, alert and oriented x3. Cranial nerves 2 through 12 are grossly intact. Please refer to medication reconciliation sheet for a list of medications. The impression and plan of care has been dictated by Nadia Young, Nurse Practitioner as directed. Dr. Joseph MD I have performed a history and examination and MDM of this patient, discussed the same with the dictator, and agree with the dictator's assessment and plan as written ,documented as a scribe. Based on total visit time, I have performed more than 50% of the visit. Patient Condition at Discharge: Stable Plan - Discharge Summary Discharge Rx Participant: No New Discharge Prescriptions: New Aspirin 81 mg PO DAILY #30 tab Thiamine [Vitamin B-1] 100 mg PO DAILY #30 tab chlordiazePOXIDE HCl [Librium] 25 mg PO TID 3 Days #6 capsule Discharge Medication List Aspirin 81 mg PO DAILY #30 tab 12/02/23 [Rx] Thiamine [Vitamin B-1] 100 mg PO DAILY #30 tab 12/02/23 [Rx] chlordiazePOXIDE HCl [Librium] 25 mg PO TID 3 Days #6 capsule 12/02/23 [Rx] Follow up Appointment(s)/Referral(s): Luis Cho MD [STAFF PHYSICIAN] - 12/05/23 2:00 pm Patient Instructions/Handouts: Chest Pain (DC), Abuse of Alcohol (DC), Alcohol Withdrawal (DC), Stress Echocardiogram (DC) Activity/Diet/Wound Care/Special Instructions: Activity limited until follow-up Follow-up with primary care provider and establish Follow-up in the outpatient setting with inpatient alcohol rehab Follow-up cardiology outpatient Continue Librium taper and avoid all alcohol with this medication Discharge/Stand Alone Forms: AA Meetings Dist & - [facility], AA Meetings [place], Community Resources, Outpatient Counseling, Inp Substance Abuse Facilit ies Discharge Disposition: HOME SELF-CARE
== END 2023-12-02 20:43 | disposition home or self-care (01) ==
LOC: EC 00:11 → 6NMEDSUR 04:22
PROVIDERS: ADMIT Hospitalist; ATTEND Hospitalist
DX: R07.89 Other chest pain (principal); F10.229 Alcohol dependence with intoxication, unspecified; R00.2 Palpitations; F41.9 Anxiety disorder, unspecified; Y90.7 Blood alcohol level of 200-239 mg/100 ml; F17.200 Nicotine dependence, unspecified, uncomplicated; Z71.41 Alcohol abuse counseling and surveillance of alcoholic; Z71.6 Tobacco abuse counseling; Z82.49 Family history of ischemic heart disease and other diseases of the circulatory system
CPT/HCPCS: 96376; 96375; 96361; 96372; 96374; 99285; 36415; 93005; 93306; 93351; 85379; 80061; 80053; 83735; 84484; 85025; 85610; 85730; 81001; 80320; 71045; G0378 ×2; J2060 ×2; J3411; C9113 ×2

== ENCOUNTER 2023-12-09 22:06 | Emergency (ER) | payer OTHER ==
[2023-12-09 22:19] VITALS: RESP 18
--- NOTE | 2023-12-09 23:55 | ED ---
General Adult HPI - General Chief complaint: Seizure Stated complaint: Seizure Time Seen by Provider: 12/09/23 23:38 Source: patient, RN notes reviewed, old records reviewed Mode of arrival: ambulatory Limitations: no limitations - History of Present Illness Initial comments: 43-year-old male history of seizure disorder, presenting with possible seizure while riding on the bus. Patient does admit to alcohol consumption today. No physical complaints at this time. He states he has not been compliant with his seizure medication. - Related Data Previous Rx's Medication Instructions Recorded Aspirin 81 mg PO DAILY #30 tab 12/02/23 Thiamine [Vitamin B-1] 100 mg PO DAILY #30 tab 12/02/23 chlordiazePOXIDE HCl [Librium] 25 mg PO TID 3 Days #6 capsule 12/02/23 Allergies Allergy/AdvReac Type Severity Reaction Status Date / Time No Known Allergies Allergy Verified 12/09/23 22:19 Review of Systems ROS Statement: Those systems with pertinent positive or pertinent negative responses have been documented in the HPI. ROS Other: All systems not noted in ROS Statement are negative. Past Medical History Past Medical History: Hypertension, Pneumonia, Seizure Disorder Additional Past Medical History / Comment(s): ETOH History of Any Multi-Drug Resistant Organisms: None Reported Past Surgical History: Joint Replacement, Orthopedic Surgery Additional Past Surgical History / Comment(s): Right knee surgery, left leg incision and drainage for spider bite, jaw surgery 2018 Past Anesthesia/Blood Transfusion Reactions: No Reported Reaction Past Psychological History: Anxiety, No Psychological Hx Reported Smoking Status: Former smoker Past Alcohol Use History: Daily Past Drug Use History: None Reported - Past Family History Sister(s) Family Medical History: Diabetes Mellitus Mother Family Medical History: Diabetes Mellitus Additional Family Medical History / Comment(s): from sudhakar johnsons syndrome Father Family Medical History: Diabetes Mellitus, Myocardial Infarction ([place]) Additional Family Medical History / Comment(s): from dm complications General Exam Limitations: no limitations General appearance: alert, appears intoxicated Head exam: Present: atraumatic, normocephalic Eye exam: Present: normal appearance, PERRL Neck exam: Present: normal inspection. Absent: tenderness, meningismus Respiratory exam: Present: normal lung sounds bilaterally. Absent: respiratory distress, wheezes Cardiovascular Exam: Present: regular rate, normal rhythm GI/Abdominal exam: Present: soft. Absent: distended, tenderness, guarding Extremities exam: Present: normal inspection, normal capillary refill Neurological exam: Present: alert, oriented X3, CN II-XII intact, other (Clinically sober). Absent: motor sensory deficit Psychiatric exam: Present: normal affect, normal mood Skin exam: Present: warm, dry, intact. Absent: cyanosis, diaphoretic Course Vital Signs 12/09/23 22:13 Temperature 97.6 F Pulse Rate 108 H Respiratory 18 Rate Blood Pressure 111/72 O2 Sat by Pulse 98 Oximetry Medical Decision Making - Medical Decision Making Was pt. sent in by a medical professional or institution (, PA, BLOCK INSPECTOR, urgent care, hospital, or senior care...) When possible be specific @ -No Did you speak to anyone other than the patient for history (EMS, parent, family, police, friend...)? What history was obtained from this source @ -No Did you review nursing and triage notes (agree or disagree)? Why? @ -I reviewed and agree with nursing and triage notes Were old charts reviewed (outside hosp., previous admission, EMS record, old EKG, old radiological studies, urgent care reports/EKG's, senior care records)? Report findings @ -No old charts were reviewed Differential Diagnosis (chest pain, altered mental status, abdominal pain women, abdominal pain men, vaginal bleeding, weakness, fever, dyspnea, syncope, headache, dizziness, GI bleed, back pain, seizure, CVA, palpatations, mental health, musculoskeletal)? @Differential Seizure: Recurrent seizure disorder, febrile seizure, alcohol withdrawal, stimulants, meningitis, encephalitis, intercranial hemorrhage, intracranial tumor, stroke, eclampsia, thyrotoxicosis, hypocalcemia, hyponatremia, hypernatremia, hypomagnesemia, psychogenic, this is not meant to be an all-inclusive list. EKG interpreted by me (3pts min.). @ -As above X-rays interpreted by me (1pt min.). @ -None done CT interpreted by me (1pt min.). @ -None done U/S interpreted by me (1pt. min.). @ -None done What testing was considered but not performed or refused? (CT, X-rays, U/S, labs)? Why? @ -None What meds were considered but not given or refused? Why? @ -None Did you discuss the management of the patient with other professionals (professionals i.e. , PA, BLOCK INSPECTOR, lab, RT, psych nurse, social media community manager, art gallery director, teacher, registration officer, medical case manager)? Give summary @ -No Was smoking cessation discussed for >3mins.? @ -No Was critical care preformed (if so, how long)? @ -No Were there social determinants of health that impacted care today? How? (Homelessness, low income, unemployed, alcoholism, drug addiction, transportation, low edu. Level, literacy, decrease access to med. care, senior living, rehab)? @ -No Was there de-escalation of care discussed even if they declined (Discuss DNR or withdrawal of care, Hospice)? DNR status @ -No What co-morbidities impacted this encounter? (DM, HTN, Smoking, COPD, CAD, Cancer, CVA, ARF, Chemo, Hep., AIDS, mental health diagnosis, sleep apnea, morbid obesity)? @ -Alcohol abuse Was patient admitted / discharged? Hospital course, mention meds given and route, prescriptions, significant lab abnormalities, going to OR and other pertinent info. @ -[43-year-old male with suspected seizure, the business administrator had apparently noted some tremor. The patient is alert and oriented at the time my evaluation without complaints. He states he is hungry and he is currently homeless. He does admit to alcohol consumption. He is clinically sober. Stable for discharge at this time. Undiagnosed new problem with uncertain prognosis? @ -No Drug Therapy requiring intensive monitoring for toxicity (Heparin, Nitro, Insuli n, Cardizem)? @ -No Were any procedures done? @ -No Diagnosis/symptom? @ -[Possible seizure Acute, or Chronic, or Acute on Chronic? @ -Acute on chronic Uncomplicated (without systemic symptoms) or Complicated (systemic symptoms)? @ -Default Side effects of treatment? @ -No Exacerbation, Progression, or Severe Exacerbation? @ -No Poses a threat to life or bodily function? How? (Chest pain, [place], [place], pneumonia, PE, COPD, DKA, ARF, appy, cholecystitis, CVA, Diverticulitis, Homicidal, Suicidal, threat to staff... and all critical care pts) @ -No Disposition Clinical Impression: Alcoholism Disposition: HOME SELF-CARE Condition: Fair Instructions (If sedation given, give patient instructions): Abuse of Alcohol (DC) Is patient prescribed a controlled substance at d/c from ED?: No Referrals: Luis Cho MD [Primary Care Provider] - 1-2 days Time of Disposition: 01:29
[2023-12-10 08:04] VITALS: BP 112/84; PULSE 99; TEMP 98.4
== END 2023-12-10 07:44 | disposition home or self-care (01) ==
LOC: EC 22:06
DX: F10.20 Alcohol dependence, uncomplicated (principal); I10 Essential (primary) hypertension; Z87.891 Personal history of nicotine dependence
CPT/HCPCS: 99284

== ENCOUNTER 2023-12-11 22:04 | Emergency (ER) | payer OTHER ==
[2023-12-11 22:44] VITALS: BP 125/85; PULSE 101; RESP 14; TEMP 97.6
--- NOTE | 2023-12-11 23:13 | ED ---
General Adult HPI - General Chief complaint: Extremity Problem,Nontraumatic Stated complaint: knee pain SOB Time Seen by Provider: 12/11/23 22:07 Source: patient Mode of arrival: ambulatory Limitations: no limitations - History of Present Illness Initial comments: Dictation was produced using [employer] dictation software. please excuse any grammatical, word or spelling errors. Chief Complaint: 43-year-old male well-known to the emergency department for EtOH intoxication homelessness presents to the ER for left knee pain and something wrong with my heart History of Present Illness: Patient is a 43-year-old male he is well-known to emergency department for alcohol intoxication. Patient states he had large amounts of alcohol today. He states he is homeless because he recently broke up with his significant other does have a place to stay. States that he had to leave work early because he had some left knee pain. States that he thinks it is his gout. Patient also states that his heart does not feel right. Denies any pain. No pressure-like sensation. Pain does not radiate down his arm up towards his jaw. No associated diaphoresis or nausea. Patient asking for sandwich and somewhere to sleep for the night The ROS documented in this emergency department record has been reviewed and confirmed by me. Those systems with pertinent positive or negative responses have been documented in the HPI. All other systems are other negative and/or noncontributory. - Related Data Previous Rx's Medication Instructions Recorded Aspirin 81 mg PO DAILY #30 tab 12/02/23 Thiamine [Vitamin B-1] 100 mg PO DAILY #30 tab 12/02/23 chlordiazePOXIDE HCl [Librium] 25 mg PO TID 3 Days #6 capsule 12/02/23 Allergies Allergy/AdvReac Type Severity Reaction Status Date / Time No Known Allergies Allergy Verified 12/10/23 20:29 Review of Systems ROS Statement: Those systems with pertinent positive or pertinent negative responses have been documented in the HPI. ROS Other: All systems not noted in ROS Statement are negative. Past Medical History Past Medical History: Hypertension, Pneumonia, Seizure Disorder Additional Past Medical History / Comment(s): ETOH History of Any Multi-Drug Resistant Organisms: None Reported Past Surgical History: Joint Replacement, Orthopedic Surgery Additional Past Surgical History / Comment(s): Right knee surgery, left leg incision and drainage for spider bite, jaw surgery 2018 Past Anesthesia/Blood Transfusion Reactions: No Reported Reaction Past Psychological History: Anxiety, No Psychological Hx Reported Smoking Status: Former smoker Past Alcohol Use History: Daily Past Drug Use History: None Reported - Past Family History Sister(s) Family Medical History: Diabetes Mellitus Mother Family Medical History: Diabetes Mellitus Additional Family Medical History / Comment(s): from sudhakar johnsons syndrome Father Family Medical History: Diabetes Mellitus, Myocardial Infarction ([place]) Additional Family Medical History / Comment(s): from dm complications General Exam - General Exam Comments Initial Comments: PHYSICAL EXAM: General Impression: Alert and oriented x3, not in acute distress HEENT: Normocephalic atraumatic, extra-ocular movements intact, pupils equal and reactive to light bilaterally, mucous membranes moist. Cardiovascular: Heart regular rate and rhythm Chest: Able to complete full sentences, no retractions, no tachypnea Abdomen: abdomen soft, non-tender, non-distended, no organomegaly Musculoskeletal: Pulses present and equal in all extremities, no peripheral edema Motor: no focal deficits noted Neurological: CN II-XII grossly intact, no focal motor or sensory deficits noted Skin: Intact with no visualized rashes Psych: Normal affect and mood Limitations: no limitations Course Vital Signs 12/11/23 22:07 Temperature 97.6 F Pulse Rate 101 H Respiratory 14 Rate Blood Pressure 125/85 O2 Sat by Pulse 95 Oximetry EKG Findings - EKG Comments: EKG Findings:: My EKG interpretation: Ventricular rate 85, sinus rhythm,. 144, cures 103, QTc 412. No RI prolongation, no QTC prolongation, no ST or T-wave changes noted. Overall, this EKG is unremarkable Medical Decision Making - Medical Decision Making Was pt. sent in by a medical professional or institution (, PA, MEDICAL LEGAL INVESTIGATOR, urgent care, hospital, or senior living...) When possible be specific @ -No Did you speak to anyone other than the patient for history (EMS, parent, family, police, friend...)? What history was obtained from this source @ -No Did you review nursing and triage notes (agree or disagree)? Why? @ -I reviewed and agree with nursing and triage notes Were old charts reviewed (outside hosp., previous admission, EMS record, old EKG, old radiological studies, urgent care reports/EKG's, senior living records)? Report findings @ -No old charts were reviewed Differential Diagnosis (chest pain, altered mental status, abdominal pain women, abdominal pain men, vaginal bleeding, musculoskeletal, weakness, fever, dyspnea, syncope, headache, dizziness, GI bleed, back pain, seizure, CVA, palpatations, mental health)? @ -Not applicable EKG interpreted by me (3pts min.). @ -See above X-rays interpreted by me (1pt min.). @ -Left knee x-ray is unremarkable CT interpreted by me (1pt min.). @ -None done U/S interpreted by me (1pt. min.). @ -None done What testing was considered but not performed or refused? (CT, X-rays, U/S, labs)? Why? @ -None What meds were considered but not given or refused? Why? @ -None Did you discuss the management of the patient with other professionals (professionals i.e. , PA, MEDICAL LEGAL INVESTIGATOR, lab, RT, psych nurse, manager social media, cupola tapper helper, teacher, immigration services officer, case mgr)? Give summary @ -No Was smoking cessation discussed for >3mins.? @ -No Was critical care preformed (if so, how long)? @ -No Were there social determinants of health that impacted care today? How? (Homelessness, low income, unemployed, alcoholism, drug addiction, transportation, low edu. Level, literacy, decrease access to med. care, senior living, rehab)? @ -No Was there de-escalation of care discussed even if they declined (Discuss DNR or withdrawal of care, Hospice)? DNR status @ -No What co-morbidities impacted this encounter? (DM, HTN, Smoking, COPD, CAD, Cancer, CVA, ARF, Chemo, Hep., AIDS, mental health diagnosis, sleep apnea, morbid obesity)? @ -None Was patient admitted / discharged? Hospital course, mention meds given and route, prescriptions, significant lab abnormalities, going to OR and other pertinent info. @ -43-year-old male well-known to emergency department for homelessness and EtOH intoxication presents emergency department for atraumatic left knee pain along with vague chest symptoms. Vital signs stable. Patient well-appearing. EKG is unremarkable. X-ray of the knee is negative. Patient observed emergency department for approximately 3 hours. Patient be discharged. Undiagnosed new problem with uncertain prognosis? @ -No Drug Therapy requiring intensive monitoring for toxicity (Heparin, Nitro, Insulin, Cardizem)? @ -No Were any procedures done? @ -No Diagnosis/symptom? Acute, or Chronic, or Acute on Chronic? Uncomplicated (without systemic symptoms) or Complicated (systemic symptoms)? @ -homelessness Side effects of treatment? @ -No Exacerbation, Progression, or Severe Exacerbation? @ -No Poses a threat to life or bodily function? How? (Chest pain, [place], [place], pneumonia, PE, COPD, DKA, ARF, appy, cholecystitis, CVA, Diverticulitis, Homicidal, Suicidal, threat to staff... and all critical care pts) @ -No Disposition Clinical Impression: Homeless Disposition: HOME SELF-CARE Condition: Good Instructions (If sedation given, give patient instructions): Knee Pain (ED) Is patient prescribed a controlled substance at d/c from ED?: No Referrals: Luis Cho MD [Primary Care Provider] - 1-2 days Time of Disposition: 01:22
--- NOTE | 2023-12-12 00:52 | XR ---
EXAM: XR Left Knee, 1 or 2 Views CLINICAL HISTORY: ITS.REASON XR Reason: pain TECHNIQUE: Frontal and/or lateral views of the left knee. COMPARISON: Left knee radiographs on 10/29/2023 FINDINGS: Bones/joints: No displaced fracture or dislocation identified. Joint space is maintained. No bony lesion. No knee joint effusion. Well- corticated ossifications along the tibial tuberosity are likely related to old trauma. Soft tissues: Normal. No radiopaque foreign body identified. IMPRESSION: No displaced fracture or dislocation identified.
== END 2023-12-12 05:50 | disposition home or self-care (01) ==
LOC: EC 22:04
DX: Z59.00 Homelessness unspecified (principal); I10 Essential (primary) hypertension; Z87.891 Personal history of nicotine dependence; Z86.59 Personal history of other mental and behavioral disorders
CPT/HCPCS: 93005; 99283

== ENCOUNTER 2023-12-29 02:53 | Emergency (ER) | payer OTHER ==
[2023-12-29 03:35] LABS: Anisocytosis Slight; Basophils # (A) 0.1 k/uL (0-0.2); Basophils % (A) 2 %; Eosinophils % (A) 1 %; HCT 46.3 % (39.0-53.0); HGB 14.5 gm/dL (13.0-17.5); Lymphocytes # (A) 2.1 k/uL (1.0-4.8); Lymphocytes % (A) 45 %; MCH 29.1 pg (25.0-35.0); MCHC 31.4 g/dL (31.0-37.0); MCV 92.7 fL (80.0-100.0); Mean Platelet Volume 8.5; Monocytes # (A) 0.3 k/uL (0-1.0); Monocytes % (A) 6 %; Neutrophils # (A) 2.1 k/uL (1.3-7.7); Neutrophils % (A) 43 %; Platelet Count 209 k/uL (150-450); RBC 4.99 m/uL (4.30-5.90); RDW 17.3 % (11.5-15.5); WBC 4.8 k/uL (3.8-10.6)
[2023-12-29 03:47] LABS: ALT 86 U/L (4-49); AST 150 U/L (17-59); African American GFR (CKD) >90 (>60 ml/min/1.73 sqM); Albumin 5.3 g/dL (3.5-5.0); Alkaline Phosphatase 177 U/L (38-126); Anion Gap 20 mmol/L; Blood Urea Nitrogen 10 mg/dL (9-20); Calcium 9.8 mg/dL (8.4-10.2); Carbon Dioxide 22 mmol/L (22-30); Chloride 101 mmol/L (98-107); Glucose 98 mg/dL (74-99); Non-African American GFR(CKD) >90 (>60 ml/min/1.73 sqM); Potassium 4.9 mmol/L (3.5-5.1); Sodium 143 mmol/L (137-145); Total Bilirubin 1.1 mg/dL (0.2-1.3)
[2023-12-29 03:55] LABS: Total Protein 11.3 g/dL (6.3-8.2)
[2023-12-29 06:39] VITALS: TEMP 97.4
--- NOTE | 2023-12-29 07:23 | ED ---
Alcohol HPI - General Chief Complaint: Alcohol Stated Complaint: ETOH Time Seen by Provider: 12/29/23 03:04 Source: EMS Mode of arrival: EMS - History of Present Illness Initial Comments: This patient's 43-year-old man reportedly has history of seizures. Patient call ambulance and stated that he hasn't had a seizure. The patient arrives alert and denying complaints of injury. 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 Visits for Alcohol Intoxication?: Yes Recent Trauma: No Associated Symptoms: seizure Treatments Prior to Arrival: none Chronic Alcohol Use: Yes - Related Data Previous Rx's Medication Instructions Recorded methylPREDNISolone Dose Pack 4 mg PO DIRECTED #21 tab 01/04/24 [Medrol Dose Pack] Thiamine [Vitamin B-1] 100 mg PO BID #100 tab 01/05/24 allopurinoL [Zyloprim] 300 mg PO DAILY #10 tab 01/05/24 Allergies Allergy/AdvReac Type Severity Reaction Status Date / Time No Known Allergies Allergy Verified 01/02/24 20:18 Review of Systems ROS Statement: Those systems with pertinent positive or pertinent negative responses have been documented in the HPI. ROS Other: All systems not noted in ROS Statement are negative. Constitutional: Denies: fever, weakness Eyes: Denies: vision change Respiratory: Denies: cough, dyspnea Cardiovascular: Denies: chest pain, palpitations Gastrointestinal: Denies: abdominal pain, nausea, vomiting Genitourinary: Denies: dysuria, hematuria Skin: Denies: rash Neurological: Denies: headache, weakness Past Medical History Past Medical History: Hypertension, Pneumonia, Seizure Disorder Additional Past Medical History / Comment(s): ETOH History of Any Multi-Drug Resistant Organisms: None Reported Past Surgical History: Joint Replacement, Orthopedic Surgery Additional Past Surgical History / Comment(s): Right knee surgery, left leg incision and drainage for spider bite, jaw surgery 2018 Past Anesthesia/Blood Transfusion Reactions: No Reported Reaction Past Psychological History: Anxiety, No Psychological Hx Reported Smoking Status: Former smoker Past Alcohol Use History: Daily Past Drug Use History: None Reported - Past Family History Sister(s) Family Medical History: Diabetes Mellitus Mother Family Medical History: Diabetes Mellitus Additional Family Medical History / Comment(s): from sudhakar johnsons syndrome Father Family Medical History: Diabetes Mellitus, Myocardial Infarction ([place]) Additional Family Medical History / Comment(s): from dm complications General Exam General appearance: alert, in no apparent distress, appears intoxicated Head exam: Present: atraumatic, normocephalic Eye exam: Present: normal appearance. Absent: scleral icterus, conjunctival inj ection Respiratory exam: Present: normal lung sounds bilaterally. Absent: respiratory distress, wheezes, rales, rhonchi, stridor Cardiovascular Exam: Present: regular rate, normal rhythm, normal heart sounds. Absent: systolic murmur, diastolic murmur, rubs, gallop GI/Abdominal exam: Present: soft. Absent: distended, tenderness, guarding, rebound, rigid, mass Extremities exam: Present: normal inspection, normal capillary refill. Absent: pedal edema, calf tenderness Back exam: Present: normal inspection. Absent: CVA tenderness (R), CVA tenderness (L) Neurological exam: Present: alert, oriented X3, CN II-XII intact, other (Mild ataxia and mild dysarthria). Absent: motor sensory deficit Skin exam: Present: warm, dry, intact, normal color. Absent: rash Course Vital Signs 12/29/23 12/29/23 12/29/23 02:55 06:17 07:56 Temperature 96.9 F L 97.4 F L Pulse Rate 90 98 78 Respiratory 18 19 18 Rate Blood Pressure 138/95 124/86 128/76 O2 Sat by Pulse 98 98 98 Oximetry Medical Decision Making - Medical Decision Making Patient is 43-year-old man by ambulance for alcohol intoxication and suspected seizure. The patient does have longstanding history of alcohol related seizures. Recommended cessation of alcohol use. The patient is observed until clinically sober and stable for discharge. Was pt. sent in by a medical professional or institution (, PA, BOWLING BALL MARKER, urgent care, hospital, or alf...) When possible be specific @ -[No] Did you speak to anyone other than the patient for history (EMS, parent, family, police, friend...)? What history was obtained from this source @ -[No] Did you review nursing and triage notes (agree or disagree)? Why? @ -[I reviewed and agree with nursing and triage notes] Were old charts reviewed (outside hosp., previous admission, EMS record, old EKG, old radiological studies, urgent care reports/EKG's, alf records)? Report findings @ -[No old charts were reviewed] Differential Diagnosis (chest pain, altered mental status, abdominal pain women, abdominal pain men, vaginal bleeding, weakness, fever, dyspnea, syncope, headache, dizziness, GI bleed, back pain, seizure, CVA, palpatations, mental health, musculoskeletal)? @ -[Differential Seizure: Recurrent seizure disorder, febrile seizure, alcohol withdrawal, stimulants, m eningitis, encephalitis, intercranial hemorrhage, intracranial tumor, stroke, eclampsia, thyrotoxicosis, hypocalcemia, hyponatremia, hypernatremia, hypomagnesemia, psychogenic, this is not meant to be an all-inclusive list. EKG interpreted by me (3pts min.). @ -[As above] X-rays interpreted by me (1pt min.). @ -[None done] CT interpreted by me (1pt min.). @ -[None done] U/S interpreted by me (1pt. min.). @ -[None done] What testing was considered but not performed or refused? (CT, X-rays, U/S, labs)? Why? @ -[None] What meds were considered but not given or refused? Why? @ -[None] Did you discuss the management of the patient with other professionals (professionals i.e. , PA, BOWLING BALL MARKER, lab, RT, psych nurse, social worker assistant, intellectual property lawyer, teacher, law enforcement officer, manager of case)? Give summary @ -[No] Was smoking cessation discussed for >3mins.? @ -[No] Was critical care preformed (if so, how long)? @ -[No] Were there social determinants of health that impacted care today? How? (Homelessness, low income, unemployed, alcoholism, drug addiction, transportation, low edu. Level, literacy, decrease access to med. care, assisted, rehab)? @ -[Alcoholism Was there de-escalation of care discussed even if they declined (Discuss DNR or withdrawal of care, Hospice)? DNR status @ -[No] What co-morbidities impacted this encounter? (DM, HTN, Smoking, COPD, CAD, Cancer, CVA, ARF, Chemo, Hep., AIDS, mental health diagnosis, sleep apnea, morbid obesity)? @ -[None] Was patient admitted / discharged? Hospital course, mention meds given and route, prescriptions, significant lab abnormalities, going to OR and other pertinent info. @ -[As above Undiagnosed new problem with uncertain prognosis? @ -[No] Drug Therapy requiring intensive monitoring for toxicity (Heparin, Nitro, Insulin, Cardizem)? @ -[No] Were any procedures done? @ -[No] Diagnosis/symptom? @ -[Acute alcohol intoxication Acute on chronic seizure Acute, or Chronic, or Acute on Chronic? @ -[As above Uncomplicated (without systemic symptoms) or Complicated (systemic symptoms)? @ -[Uncomplicated Side effects of treatment? @ -[No] Exacerbation, Progression, or Severe Exacerbation? @ -[No] Poses a threat to life or bodily function? How? (Chest pain, [place], [place], pneumonia, PE, COPD, DKA, ARF, appy, cholecystitis, CVA, Diverticulitis, Homicidal, Suicidal, threat to staff... and all critical care pts) @ -[No] - Lab Data Result diagrams: 12/29/23 03:27 12/29/23 03:27 Lab Results 12/29/23 12/29/23 Range/Units 03:27 03:27 WBC 4.8 (3.8-10.6) k/uL RBC 4.99 (4.30-5.90) m/uL Hgb 14.5 (13.0-17.5) gm/dL Hct 46.3 (39.0-53.0) % MCV 92.7 (80.0-100.0) fL MCH 29.1 (25.0-35.0) pg MCHC 31.4 (31.0-37.0) g/dL RDW 17.3 H (11.5-15.5) % Plt Count 209 (150-450) k/uL MPV 8.5 Neutrophils % 43 % Lymphocytes % 45 % Monocytes % 6 % Eosinophils % 1 % Basophils % 2 % Neutrophils # 2.1 (1.3-7.7) k/uL Lymphocytes # 2.1 (1.0-4.8) k/uL Monocytes # 0.3 (0-1.0) k/uL Eosinophils # 0.0 (0-0.7) k/uL Basophils # 0.1 (0-0.2) k/uL Anisocytosis Slight Sodium 143 (137-145) mmol/L Potassium 4.9 (3.5-5.1) mmol/L Chloride 101 (98-107) mmol/L Carbon Dioxide 22 (22-30) mmol/L Anion Gap 20 mmol/L BUN 10 (9-20) mg/dL Creatinine 0.80 (0.66-1.25) mg/dL Est GFR (CKD-EPI)AfAm >90 (>60 ml/min/1.73 sqM) Est GFR (CKD-EPI)NonAf >90 (>60 ml/min/1.73 sqM) Glucose 98 (74-99) mg/dL Calcium 9.8 (8.4-10.2) mg/dL Total Bilirubin 1.1 (0.2-1.3) mg/dL AST 150 H (17-59) U/L ALT 86 H (4-49) U/L Alkaline Phosphatase 177 H (38-126) U/L Total Protein 11.3 H (6.3-8.2) g/dL Albumin 5.3 H (3.5-5.0) g/dL Disposition Clinical Impression: Alcoholic intoxication Disposition: HOME SELF-CARE Condition: Good Instructions (If sedation given, give patient instructions): Alcohol Intoxication (ED) Is patient prescribed a controlled substance at d/c from ED?: No Referrals: Luis Cho MD [Primary Care Provider] - 1-2 days
[2023-12-29 08:23] VITALS: BP 128/76; PULSE 78; RESP 18
== END 2023-12-29 07:57 | disposition home or self-care (01) ==
LOC: EC 02:53
DX: F10.929 Alcohol use, unspecified with intoxication, unspecified (principal); Z87.891 Personal history of nicotine dependence
CPT/HCPCS: 36415; 80053; 85025; 99284

== ENCOUNTER 2024-01-02 18:45 | Observation (INO) | payer OTHER ==
--- NOTE | 2024-01-02 19:01 | ED ---
General Adult HPI - General Chief complaint: Extremity Injury, Lower Stated complaint: Infection Time Seen by Provider: 01/02/24 18:50 Source: patient, EMS, RN notes reviewed, old records reviewed Mode of arrival: EMS - History of Present Illness Initial comments: This is a 43-year-old male who presents to the emergency department complaining of his left knee being painful and swollen. He states has been ongoing for 4 days. Patient states he had it happen once before and he was told it was gout. Patient states he went to his primary medical care doctor today and the primary medical care doctor sent him into the ER to be evaluated. Patient states he does not believe he had any trauma in the last 4 days. Patient states that Melissa getting worse and he does have a low-grade fever. Patient denies any other symptoms today.Patient denies any calf pain or lower leg swelling - Related Data Previous Rx's Medication Instructions Recorded Aspirin 81 mg PO DAILY #30 tab 12/02/23 Thiamine [Vitamin B-1] 100 mg PO DAILY #30 tab 12/02/23 chlordiazePOXIDE HCl [Librium] 25 mg PO TID 3 Days #6 capsule 12/02/23 Allergies Allergy/AdvReac Type Severity Reaction Status Date / Time No Known Allergies Allergy Verified 01/02/24 18:58 Review of Systems ROS Statement: Those systems with pertinent positive or pertinent negative responses have been documented in the HPI. ROS Other: All systems not noted in ROS Statement are negative. Past Medical History Past Medical History: Hypertension, Pneumonia, Seizure Disorder Additional Past Medical History / Comment(s): ETOH History of Any Multi-Drug Resistant Organisms: None Reported Past Surgical History: Joint Replacement, Orthopedic Surgery Additional Past Surgical History / Comment(s): Right knee surgery, left leg incision and drainage for spider bite, jaw surgery 2018 Past Anesthesia/Blood Transfusion Reactions: No Reported Reaction Past Psychological History: Anxiety, No Psychological Hx Reported Smoking Status: Former smoker Past Alcohol Use History: Daily Past Drug Use History: None Reported - Past Family History Sister(s) Family Medical History: Diabetes Mellitus Mother Family Medical History: Diabetes Mellitus Additional Family Medical History / Comment(s): from sudhakar johnsons syndrome Father Family Medical History: Diabetes Mellitus, Myocardial Infarction ([place]) Additional Family Medical History / Comment(s): from dm complications General Exam - General Exam Comments Initial Comments: GENERAL: Patient is well-developed and well-nourished. Patient is nontoxic and well- hydrated and is in mild distress. ENT: Neck is soft and supple. No significant lymphadenopathy is noted. Oropharynx is clear. Moist mucous membranes. Neck has full range of motion without eliciting any pain. EYES: The sclera were anicteric and conjunctiva were pink and moist. Extraocular movements were intact and pupils were equal round and reactive to light. Eyelids were unremarkable. PULMONARY: Unlabored respirations. Good breath sounds bilaterally. No audible rales rhonchi or wheezing was noted. CARDIOVASCULAR: There is a regular rate and rhythm without any murmurs gallops or rubs. ABDOMEN: Soft and nontender with normal bowel sounds. SKIN: Skin is clear with no lesions or rashes and otherwise unremarkable. NEUROLOGIC: Patient is alert and oriented x3. Cranial nerves II through XII are grossly intact. Motor and sensory are also intact. Normal speech, volume and content. Symmetrical smile. MUSCULOSKELETAL: Patient's left knee has a large effusion he does have 75% of range of motion when he flexes it too much is starts to get taut and he states it hurts too much. LYMPHATICS: No significant lymphadenopathy is noted PSYCHIATRIC: Normal psychiatric evaluation. Course Vital Signs 01/02/24 18:48 Temperature 100.2 F H Pulse Rate 126 H Respiratory 20 Rate Blood Pressure 127/91 O2 Sat by Pulse 98 Oximetry Medical Decision Making - Medical Decision Making Was pt. sent in by a medical professional or institution (, PA, CUTTING MACHINE FIXER, urgent care, hospital, or alf...) When possible be specific @ -Dr. Cho sent the patient to be evaluated Did you speak to anyone other than the patient for history (EMS, parent, family, police, friend...)? What history was obtained from this source @ -No Did you review nursing and triage notes (agree or disagree)? Why? @ -I reviewed and agree with nursing and triage notes Were old charts reviewed (outside hosp., previous admission, EMS record, old EKG, old radiological studies, urgent care reports/EKG's, alf records)? Report findings @ -I reviewed prior charts on this patient Differential Diagnosis (chest pain, altered mental status, abdominal pain women, abdominal pain men, vaginal bleeding, weakness, fever, dyspnea, syncope, headache, dizziness, GI bleed, back pain, seizure, CVA, palpatations, mental health, musculoskeletal)? @ -Differential Fever: Pneumonia, viral URI, endocarditis, myocarditis, pericarditis, otitis, si nusitis, peritonsillar Abscess, retropharyngeal Abscess, epiglottitis, peritonitis, appendicitis, Judi cystitis, diverticulitis, hepatitis, colitis, UTI, PID, TOA, pyelonephritis, prostatitis, epididymitis, meningitis, encephalitis, pulmonary embolism, CVA, thyroid storm, pancreatitis, adrenal avery is, cavernous sinus thrombosis, this is not meant to be an all-inclusive list. EKG interpreted by me (3pts min.). @ -As above X-rays interpreted by me (1pt min.). @ -X-ray of the knee shows no acute abnormality CT interpreted by me (1pt min.). @ -None done U/S interpreted by me (1pt. min.). @ -None done What testing was considered but not performed or refused? (CT, X-rays, U/S, labs)? Why? @ -None What meds were considered but not given or refused? Why? @ -None Did you discuss the management of the patient with other professionals (professionals i.e. , PA, CUTTING MACHINE FIXER, lab, RT, psych nurse, social services aide, perioperative nurse, teacher, executive vice president and chief operating officer, community case manager)? Give summary @ -I spoke with Dr. Beard and he wanted the patient admitted to admit the patient. Was smoking cessation discussed for >3mins.? @ -No Was critical care preformed (if so, how long)? @ -No Were there social determinants of health that impacted care today? How? (Homelessness, low income, unemployed, alcoholism, drug addiction, trans portation, low edu. Level, literacy, decrease access to med. care, fci, rehab)? @ -No Was there de-escalation of care discussed even if they declined (Discuss DNR or withdrawal of care, Hospice)? DNR status @ -No What co-morbidities impacted this encounter? (DM, HTN, Smoking, COPD, CAD, Cancer, CVA, ARF, Chemo, Hep., AIDS, mental health diagnosis, sleep apnea, morbid obesity)? @ -None Was patient admitted / discharged? Hospital course, mention meds given and route, prescriptions, significant lab abnormalities, going to OR and other pertinent info. @ -Patient got Toradol and did help with the pain. Patient's x-ray was normal. Patient's blood work showed no acute normality. Dr. Beard and wanted the patient admitted to admit the patient Undiagnosed new problem with uncertain prognosis? @ -No Drug Therapy requiring intensive monitoring for toxicity (Heparin, Nitro, Insulin, Cardizem)? @ -No Were any procedures done? @ -No Diagnosis/symptom? @ -Knee effusion Acute, or Chronic, or Acute on Chronic? @ -Acute Uncomplicated (without systemic symptoms) or Complicated (systemic symptoms)? @ -Complicated Side effects of treatment? @ -No Exacerbation, Progression, or Severe Exacerbation? @ -No Poses a threat to life or bodily function? How? (Chest pain, [place], [place], pneumonia, PE, COPD, DKA, ARF, appy, cholecystitis, CVA, Diverticulitis, Homicidal, Suicidal, threat to staff... and all critical care pts) @ -No - Lab Data Result diagrams: 01/02/24 19:02 Lab Results 01/02/24 01/02/24 Range/Units 19:02 19:13 WBC 9.1 (3.8-10.6) k/uL RBC 4.15 L (4.30-5.90) m/uL Hgb 11.9 L (13.0-17.5) gm/dL Hct 38.8 L (39.0-53.0) % MCV 93.7 (80.0-100.0) fL MCH 28.8 (25.0-35.0) pg MCHC 30.7 L (31.0-37.0) g/dL RDW 16.9 H (11.5-15.5) % Plt Count 154 (150-450) k/uL MPV 9.9 Neutrophils % 66 % Lymphocytes % 19 % Monocytes % 11 % Eosinophils % 2 % Basophils % 1 % Neutrophils # 6.0 (1.3-7.7) k/uL Lymphocytes # 1.7 (1.0-4.8) k/uL Monocytes # 1.0 (0-1.0) k/uL Eosinophils # 0.2 (0-0.7) k/uL Basophils # 0.1 (0-0.2) k/uL Anisocytosis Slight POC Glucose (mg/dL) 97 (70-110) mg/dL POC Glu Marketing Researcher ID Megan Bee Disposition Clinical Impression: Knee effusion Disposition: ADMITTED IP TO THIS HOSP Referrals: Luis Cho MD [Primary Care Provider] - 1-2 days Time of Disposition: 19:52
[2024-01-02] MEDS: KETOROLAC 15 MG/ML 1 ML VIAL IVP STA (19:16)
[2024-01-02] MEDS: ACETAMINOPHEN TAB 500 MG TAB PO STA (19:22)
[2024-01-02 19:24] LABS: Glucose,Whole Blood 97 mg/dL (70-110)
[2024-01-02 19:27] LABS: Anisocytosis Slight; Basophils # (A) 0.1 k/uL (0-0.2); Basophils % (A) 1 %; Eosinophils # (A) 0.2 k/uL (0-0.7); Eosinophils % (A) 2 %; HCT 38.8 % (39.0-53.0); HGB 11.9 gm/dL (13.0-17.5); Lymphocytes # (A) 1.7 k/uL (1.0-4.8); Lymphocytes % (A) 19 %; MCH 28.8 pg (25.0-35.0); MCHC 30.7 g/dL (31.0-37.0); MCV 93.7 fL (80.0-100.0); Mean Platelet Volume 9.9; Monocytes % (A) 11 %; Neutrophils % (A) 66 %; Platelet Count 154 k/uL (150-450); RBC 4.15 m/uL (4.30-5.90); RDW 16.9 % (11.5-15.5); WBC 9.1 k/uL (3.8-10.6)
[2024-01-02 19:47] LABS: ALT 44 U/L (4-49); African American GFR (CKD) >90 (>60 ml/min/1.73 sqM); Anion Gap 8 mmol/L; Blood Urea Nitrogen 4 mg/dL (9-20); C Reactive Protein 1.5 mg/dL (<1.0); Calcium 9.1 mg/dL (8.4-10.2); Carbon Dioxide 25 mmol/L (22-30); Chloride 102 mmol/L (98-107); Glucose 100 mg/dL (74-99); Non-African American GFR(CKD) >90 (>60 ml/min/1.73 sqM); Sodium 135 mmol/L (137-145); Total Bilirubin 1.8 mg/dL (0.2-1.3); Uric Acid 8.1 mg/dL (3.5-8.5)
[2024-01-02 19:57] LABS: AST 92 U/L (17-59); Albumin 4.4 g/dL (3.5-5.0); Alkaline Phosphatase 119 U/L (38-126); Potassium 4.5 mmol/L (3.5-5.1); Total Protein 9.3 g/dL (6.3-8.2)
[2024-01-02] MEDS: SODIUM CHLORIDE 0.9% 1,000 ML IV ONE ×2 (20:06→21:14)
--- NOTE | 2024-01-02 20:06 | XR ---
PROCEDURE: XR knee complete LT - 3V DATE AND TIME: 01/02/2024 7:44 PM CLINICAL INDICATION: PHH; Knee swollen TECHNIQUE: AP, AP oblique, and crosstable lateral views were obtained. COMPARISON: 12/11/2023 FINDINGS / IMPRESSION: Negative for fracture or malalignment. There is prominent soft tissue swelling anteriorly (related to the quadriceps tendon, and medially.
[2024-01-03] MEDS: KETOROLAC 15 MG/ML 1 ML VIAL IVP SCH (00:21)
[2024-01-03 03:03] LABS: Erythrocyte Sedimentation Rate >130 mm/Hr (0-15)
[2024-01-03 13:08] VITALS: BMI 25.0
--- NOTE | 2024-01-03 17:51 | P.CNOR ---
History of Present Illness - [facility] Consult date: 01/03/24 Consult reason: joint pain History of present illness: Patient is a 43-year-old male seen at bedside today in consultation for left knee pain and effusion. He presented to the emergency department yesterday complaining of his left knee being painful and swollen. He states has been ongoing for 4 days. Patient states he had previous episodes before and he was told it was gout. He is not on a colchicine or daily gout medicine. Patient states he does not believe he had any trauma in the last 4 days. Patient states that it is improved today versus yesterday. He denies fever or chills today. Patient denies any other symptoms today. Patient denies any calf pain or lower leg swelling Review of Systems All systems: negative Constitutional: Denies chills, Denies fever Eyes: denies blurred vision, denies pain Ears, nose, mouth and throat: Denies headache, Denies sore throat Cardiovascular: Denies chest pain, Denies shortness of breath Respiratory: Denies cough Gastrointestinal: Denies abdominal pain, Denies diarrhea, Denies nausea, Denies vomiting Musculoskeletal: Denies myalgias Integumentary: Denies pruritus, Denies rash Neurological: Denies numbness, Denies weakness Psychiatric: Denies anxiety, Denies depression Endocrine: Denies fatigue, Denies weight change Past Medical History Past Medical History: Hypertension, Pneumonia, Seizure Disorder Additional Past Medical History / Comment(s): ETOH History of Any Multi-Drug Resistant Organisms: None Reported Past Surgical History: Joint Replacement, Orthopedic Surgery Additional Past Surgical History / Comment(s): Right knee surgery, left leg incision and drainage for spider bite, jaw surgery 2018 Past Anesthesia/Blood Transfusion Reactions: No Reported Reaction Past Psychological History: Anxiety Smoking Status: Never smoker Past Alcohol Use History: Daily Additional Past Alcohol Use History / Comment(s): Drinks 4-5 tall boys of beer a day and a couple of shots Past Drug Use History: None Reported - Past Family History Sister(s) Family Medical History: Diabetes Mellitus Mother Family Medical History: Diabetes Mellitus Additional Family Medical History / Comment(s): from sudhakar johnsons syndrome Father Family Medical History: Diabetes Mellitus, Myocardial Infarction ([place]) Additional Family Medical History / Comment(s): from dm complic ations Medications and Allergies Home Medications Medication Instructions Recorded Confirmed Type No Known Home Medications 01/02/24 01/02/24 History Allergies Allergy/AdvReac Type Severity Reaction Status Date / Time No Known Allergies Allergy Verified 01/02/24 20:18 Physical Examination Inspection of left knee shows moderate effusion. No deformity. It is not overly hot to touch. It is mildly tender at joint line. He has pain with PROM flexion to 100 degrees. He has full extension.The knee appears ligamentously stable. Calf is SNT. NVI with motor and sensation throughout lower extremity. 2+ DP pulse and less than 2 sec cap refill present. Results no fracture, no gas - Labs Labs: Abnormal Lab Results - Last 24 Hours (Table) 01/02/24 01/02/24 Range/Units 19:02 19:02 RBC 4.15 L (4.30-5.90) m/uL Hgb 11.9 L (13.0-17.5) gm/dL Hct 38.8 L (39.0-53.0) % MCHC 30.7 L (31.0-37.0) g/dL RDW 16.9 H (11.5-15.5) % ESR >130 H (0-15) mm/Hr Sodium 135 L (137-145) mmol/L BUN 4 L (9-20) mg/dL Creatinine 0.65 L (0.66-1.25) mg/dL Glucose 100 H (74-99) mg/dL Total Bilirubin 1.8 H (0.2-1.3) mg/dL AST 92 H (17-59) U/L C-Reactive Protein 1.5 H (<1.0) mg/dL Total Protein 9.3 H (6.3-8.2) g/dL H & H 01/02/24 Range/Units 19:02 Hgb 11.9 L (13.0-17.5) gm/dL Hct 38.8 L (39.0-53.0) % Result Diagrams: 01/02/24 19:02 01/02/24 19:02 Assessment and Plan (1) Knee effusion Narrative/Plan: We will start him on IV corticosteroids, ice, compression and elevation. Will re-evaluate tomorrow. If continued effusion, will aspirate and send to lab. Continue pain management. Further recommendations to follow. Thank you Current Visit: Yes Status: Acute Priority: Medium Code(s): M25.469 - EFFUSION, UNSPECIFIED KNEE SNOMED Code(s): 673957556 Time with Patient: Less than 30
[2024-01-03] MEDS: methylPREDNISolone SOD SUCCIN 250 MG in SODIUM CHLORIDE 0.9% 100 ML IVPB SCH (18:37)
[2024-01-03] MEDS ORDERED: DEXTROSE 50% SYRINGE 50 ML IVP PRN ×2 (19:06)
[2024-01-03 20:08] LABS: Glucose,Whole Blood 121 mg/dL (70-110)
[2024-01-03] MEDS: INSULIN ASPART (NovoLOG) 100 UNIT/ML VIAL SQ SCH (20:24)
[2024-01-04] MEDS: ACETAMINOPHEN TAB 325 MG TAB PO PRN (03:54)
[2024-01-04 07:35] LABS: Glucose,Whole Blood 289 mg/dL (70-110)
[2024-01-04] MEDS: MULTIVITAMINS, THERA 1 EACH TAB PO SCH (08:37)
[2024-01-04] MEDS: THIAMINE 100 MG TAB PO SCH (08:37)
--- NOTE | 2024-01-04 10:34 | P.PN ---
Subjective Progress Note Date: 01/04/24 Principal diagnosis: Left knee pain effusion Much improved knee pain and swelling today. Received IV corticosdteroids. No new complaints Objective - Vital Signs Vital signs: Vital Signs Temp 98.3 F 01/04/24 07:25 Pulse 89 01/04/24 07:25 Resp 17 01/04/24 07:25 BP 155/86 01/04/24 07:25 Pulse Ox 97 01/04/24 07:25 FiO2 Intake & Output 01/03/24 01/04/24 01/04/24 18:59 06:59 18:59 Intake Total 2090 Output Total 750 1500 1200 Balance -750 590 -1200 Weight 74.843 kg Intake: Intake, IV Titration 1000 Amount Sodium Chloride 0.9% 1, 800 000 ml @ 75 mls/hr IV . [id number] Rx#:[id number] methylPREDNISolone SOD 200 SUCCIN 250 mg In Sodium Chloride 0.9% 100 ml @ 200 mls/hr IVPB Q6HR [id number] Rx#:[id number] Oral 1090 Output: Urine 750 1500 1200 Other: Voiding Method Urinal # Voids 1 - Exam Improved left knee effusion. It is mild today. No erythema or excessive warmth. Non tender. Painless ROM with flexion to 110 and full extension. Calf SNT. NVI - Constitutional General appearance: Present: no acute distress - Labs CBC & Chem 7: 01/02/24 19:02 01/02/24 19:02 Labs: Abnormal Lab Results - Last 24 Hours (Table) 01/03/24 01/03/24 01/04/24 Range/Units 17:25 20:07 07:34 POC Glucose (mg/dL) 121 H 289 H (70-110) mg/dL C-Reactive Protein 2.3 H (<1.0) mg/dL Microbiology - Last 24 Hours (Table) 01/02/24 19:14 Blood Culture Gram Stain - Preliminary Blood Assessment and Plan (1) Knee effusion Narrative/Plan: No plans for surgical intervention. Continue IV corticosteroids, ice, compression and elevation. He is much improved today. 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 He may D/C from orthopedic standpoint and f/u as outpatient. Rx for medrol dose pack sent. Current Visit: Yes Status: Acute Priority: Medium Code(s): M25.469 - EFFUSION, UNSPECIFIED KNEE SNOMED Code(s): 960789329 Time with Patient: Less than 30
[2024-01-04 12:10] LABS: Glucose,Whole Blood 329 mg/dL (70-110)
[2024-01-04 17:16] LABS: Glucose,Whole Blood 307 mg/dL (70-110)
--- NOTE | 2024-01-04 19:25 | HP ---
HISTORY AND PHYSICAL CHIEF COMPLAINT: Pain and swelling in both knees. HISTORY OF PRESENT ILLNESS: This gentleman came to the office with pain and swelling in both knees. He had marked effusion in the left knee and less so on the right. X-rays were unremarkable. He had fever, but no other symptoms to explain such as cough, shortness of breath, urinary symptoms, etc. There was concern that he may have pyarthrosis and he was sent to the emergency room. REVIEW OF SYSTEMS: Other unremarkable. He had been drinking, but he was not in entire state of going into DTs. Remainder of his review of systems was unremarkable. PHYSICAL EXAMINATION: VITAL SIGNS: Normal. Temperature is 101.4, however. GENERAL: Exam is normal. HEAD, EARS, EYES, NOSE, MOUTH, AND THROAT: Normal. CHEST: Clear. CARDIAC: Normal. ABDOMEN: Soft. Nontender. EXTREMITIES: He had a fairly large effusion in the left knee and less so in the right. He had severe discomfort with movement and walking. NEUROLOGIC: Intact. He was admitted with the diagnoses of: 1. Acute onset of bilateral knee pain with effusions. 2. Rule out pyarthrosis. 3. Rule out gout. 4. Chronic alcoholism. PLAN: 1. Bed rest. 2. IV fluids. 3. Orthopedic consult for aspiration of joints. 4. Appropriate blood work. MMODL / IJN: [id number] /
[2024-01-04 20:29] LABS: Glucose,Whole Blood 304 mg/dL (70-110)
--- NOTE | 2024-01-04 20:48 | PN ---
PROGRESS NOTE DATE OF SERVICE: 01/03/2024 CHIEF COMPLAINT: Acute pain and swelling in the knee. HISTORY OF PRESENT ILLNESS: This is a gentleman, about the same. He has not been seen by Orthopedics yet. PHYSICAL EXAMINATION: He still has tenderness and swelling in both knees. He has had no fever. Uric acid is just over 8. IMPRESSION: Bilateral knee pain and effusion. PLAN: Await Orthopedic evaluation and possible aspiration of his left knee. MMODL / IJN: [id number] /
[2024-01-05 07:59] LABS: Glucose,Whole Blood 246 mg/dL (70-110)
[2024-01-05 09:31] VITALS: BP 149/84; PULSE 99; RESP 20; TEMP 97.8
--- NOTE | 2024-01-05 21:10 | PN ---
PROGRESS NOTE CHIEF COMPLAINT: Left knee pain. HISTORY OF PRESENT ILLNESS: This gentleman is doing a little bit better. He has had no further fever or chills. He is being evaluated by Orthopedics. PHYSICAL EXAMINATION: CHEST: Clear. CARDIAC: Normal. ABDOMEN: Soft, nontender. VITAL SIGNS: Normal. He is not in DTs. PLAN: Await orthopedic recommendations regarding the knee pain, effusions, and fever. MMODL / IJN: [id number] /
--- NOTE | 2024-01-05 22:07 | DS ---
DISCHARGE SUMMARY CHIEF COMPLAINT: Fever with knee pain and effusion. HISTORY OF PRESENT ILLNESS AND PHYSICAL EXAMINATION: Details of this man's history and physical can be found in the initial workup. LABORATORY STUDIES: While he was in the hospital he had laboratory studies, details of which can be found in the laboratory section of his chart. COURSE IN THE HOSPITAL: After admission, he was placed on bedrest, started on intravenous fluids, and seen by Orthopedics. There was concern that he could have infection particularly in the left knee, but it was determined that it was inflammatory and likely gout. He was started on steroids and had dramatic improvement. He is doing well and it is felt that he could go home on the , and he will go home on allopurinol 300 mg once a day and Medrol Dosepak and be seen in the office in several days. FINAL DIAGNOSIS: 1. Acute gouty arthritis with effusion of both knees with the left worse than the right. 2. Alcoholism. OPERATIONS: None. CONSULTATIONS: Orthopedics. He is improved. MMODL / IJN: [id number] /
[2024-01-06] MEDS ORDERED: methylPREDNISolone 4 MG TAB TAPER PO SCH (09:00)
[2024-01-06] MEDS ORDERED: allopurinoL 300 MG TAB PO SCH (09:00)
== END 2024-01-05 11:51 | disposition home or self-care (01) ==
LOC: EC 18:45 → 6NMEDSUR 19:55 → 5NMEDONC 21:27
PROVIDERS: ADMIT Family Medicine; ATTEND Family Medicine
DX: M10.9 Gout, unspecified (principal); F41.9 Anxiety disorder, unspecified; I10 Essential (primary) hypertension; F10.20 Alcohol dependence, uncomplicated; Z87.891 Personal history of nicotine dependence; Z79.82 Long term (current) use of aspirin; Z11.52 Encounter for screening for COVID-19
CPT/HCPCS: 96376 ×2; 96361 ×3; 96365; 96366 ×3; 96375; 99285; 36415; 80053; 85652; 84550; 85025; 86140 ×2; 87040; 87077; 87186; 83036; 87636; 73562; G0378 ×5; J2930 ×3; J1885 ×2

== ENCOUNTER 2024-01-15 01:31 | Observation (INO) | payer OTHER ==
--- NOTE | 2024-01-15 02:11 | ED ---
General Adult HPI - General Chief complaint: Seizure Stated complaint: ETOH Time Seen by Provider: 01/15/24 01:35 Source: patient, EMS Mode of arrival: EMS Limitations: no limitations - History of Present Illness Initial comments: 43-year-old male with history of daily alcohol use presenting for evaluation. Patient called EMS for possible seizure at home. Unknown duration. States that he did drink "a little beer" this evening. He has no complaints at this time. - Related Data Home Medications Medication Instructions Recorded Confirmed allopurinoL [Zyloprim] 300 mg PO DIRECTED 01/15/24 01/15/24 Previous Rx's Medication Instructions Recorded methylPREDNISolone Dose Pack 4 mg PO DIRECTED #21 tab 01/04/24 [Medrol Dose Pack] Allergies Allergy/AdvReac Type Severity Reaction Status Date / Time No Known Allergies Allergy Verified 01/15/24 09:57 Review of Systems ROS Statement: Those systems with pertinent positive or pertinent negative responses have been documented in the HPI. ROS Other: All systems not noted in ROS Statement are negative. Past Medical History Past Medical History: Hypertension, Pneumonia, Seizure Disorder Additional Past Medical History / Comment(s): ETOH History of Any Multi-Drug Resistant Organisms: None Reported Past Surgical History: Joint Replacement, Orthopedic Surgery Additional Past Surgical History / Comment(s): Right knee surgery, left leg incision and drainage for spider bite, jaw surgery 2018 Past Anesthesia/Blood Transfusion Reactions: No Reported Reaction Past Psychological History: Anxiety Smoking Status: Never smoker Past Alcohol Use History: Abuse, Daily Past Drug Use History: None Reported - Past Family History Sister(s) Family Medical History: Diabetes Mellitus Mother Family Medical History: Diabetes Mellitus Additional Family Medical History / Comment(s): from sudhakar johnsons syndrome Father Family Medical History: Diabetes Mellitus, Myocardial Infarction (ID) Additional Family Medical History / Comment(s): from dm complications General Exam Limitations: no limitations General appearance: alert, in no apparent distress, appears intoxicated Head exam: Present: atraumatic, normocephalic Eye exam: Present: normal appearance, EOMI Neck exam: Present: normal inspection. Absent: meningismus Respiratory exam: Present: normal lung sounds bilaterally. Absent: respiratory distress, wheezes, rales, rhonchi, stridor Cardiovascular Exam: Present: regular rate, normal rhythm, normal heart sounds. Absent: systolic murmur, diastolic murmur, rubs, gallop, clicks Neurological exam: Present: alert (intoxicated) Psychiatric exam: Present: normal affect, normal mood Skin exam: Present: warm, dry Course Vital Signs 01/15/24 01/15/24 01/15/24 01:32 06:41 08:36 Temperature 96.8 F L 95.4 F L Pulse Rate 97 102 H 100 Respiratory 16 16 20 Rate Blood Pressure 142/109 112/75 111/77 O2 Sat by Pulse 98 96 100 Oximetry 01/15/24 01/15/24 12:20 12:26 Temperature Pulse Rate 109 H 101 H Respiratory 20 20 Rate Blood Pressure 111/75 115/77 O2 Sat by Pulse 96 99 Oximetry Medical Decision Making - Medical Decision Making Was pt. sent in by a medical professional or institution (, PA, ELECTRICAL PROJECT ENGINEER, urgent care, hospital, or group home...) When possible be specific @ -No Did you speak to anyone other than the patient for history (EMS, parent, family, police, friend...)? What history was obtained from this source @ -No Did you review nursing and triage notes (agree or disagree)? Why? @ -I reviewed and agree with nursing and triage notes Were old charts reviewed (outside hosp., previous admission, EMS record, old EKG, old radiological studies, urgent care reports/EKG's, group home records)? Report findings @ -Old visits reviewed Differential Diagnosis (chest pain, altered mental status, abdominal pain women, abdominal pain men, vaginal bleeding, weakness, fever, dyspnea, syncope, headache, dizziness, GI bleed, back pain, seizure, CVA, palpatations, mental health, musculoskeletal)? @ -[facility] Differential Seizure: Recurrent seizure disorder, febrile seizure, alcohol withdrawal, stimulants, meningitis, encephalitis, intercranial hemorrhage, intracranial tumor, stroke, eclampsia, thyrotoxicosis, hypocalcemia, hyponatremia, hypernatremia, hypomagnesemia, psychogenic this is not meant to be an all-inclusive list EKG interpreted by me (3pts min.). @ -As above X-rays interpreted by me (1pt min.). @ -None done CT interpreted by me (1pt min.). @ -None done U/S interpreted by me (1pt. min.). @ -None done What testing was considered but not performed or refused? (CT, X-rays, U/S, labs)? Why? @ -None What meds were considered but not given or refused? Why? @ -None Did you discuss the management of the patient with other professionals (professionals i.e. , PA, ELECTRICAL PROJECT ENGINEER, lab, RT, psych nurse, social service technician, therapist's assistant, teacher, field health officer, rn field case manager)? Give summary @ - Was smoking cessation discussed for >3mins.? @ -No Was critical care preformed (if so, how long)? @ -No Were there social determinants of health that impacted care today? How? (Homelessness, low income, unemployed, alcoholism, drug addiction, transportation, low edu. Level, literacy, decrease access to med. care, long-term, rehab)? @ -No Was there de-escalation of care discussed even if they declined (Discuss DNR or withdrawal of care, Hospice)? DNR status @ -No What co-morbidities impacted this encounter? (DM, HTN, Smoking, COPD, CAD, Cancer, CVA, ARF, Chemo, Hep., AIDS, mental health diagnosis, sleep apnea, morbid obesity)? @ -None Was patient admitted / discharged? Hospital course, mention meds given and route, prescriptions, significant lab abnormalities, going to OR and other pertinent info. @ -43-year-old male presenting for evaluation. States that he may have had a seizure at home. History of daily alcohol use, admits to drinking tonight. Serum alcohol is 427. Patient will be admitted for alcohol intoxication. I discussed this case with my attending Dr. Wang Undiagnosed new problem with uncertain prognosis? @ -No Drug Therapy requiring intensive monitoring for toxicity (Heparin, Nitro, Insulin, Cardizem)? @ -No Were any procedures done? @ -No Diagnosis/symptom? @ -Alcohol intoxication Acute, or Chronic, or Acute on Chronic? @ -Acute Uncomplicated (without systemic symptoms) or Complicated (systemic symptoms)? @ -Complicated Side effects of treatment? @ -No Exacerbation, Progression, or Severe Exacerbation? @ -No Poses a threat to life or bodily function? How? (Chest pain, USA, ID, pneumonia, PE, COPD, DKA, ARF, appy, cholecystitis, CVA, Diverticulitis, Homicidal, Suicidal, threat to staff... and all critical care pts) @ - - Lab Data Result diagrams: 01/15/24 01:50 01/15/24 01:50 Lab Results 01/15/24 01/15/24 Range/Units 01:50 01:50 WBC 4.9 (3.8-10.6) k/uL RBC 4.53 (4.30-5.90) m/uL Hgb 12.9 L (13.0-17.5) gm/dL Hct 41.9 (39.0-53.0) % MCV 92.4 (80.0-100.0) fL MCH 28.5 (25.0-35.0) pg MCHC 30.8 L (31.0-37.0) g/dL RDW 16.7 H (11.5-15.5) % Plt Count 323 D (150-450) k/uL MPV 7.2 Neutrophils % 41 % Lymphocytes % 47 % Monocytes % 7 % Eosinophils % 1 % Basophils % 1 % Neutrophils # 2.0 (1.3-7.7) k/uL Lymphocytes # 2.3 (1.0-4.8) k/uL Monocytes # 0.3 (0-1.0) k/uL Eosinophils # 0.0 (0-0.7) k/uL Basophils # 0.0 (0-0.2) k/uL Anisocytosis Slight Sodium 140 (137-145) mmol/L Potassium 3.9 (3.5-5.1) mmol/L Chloride 104 (98-107) mmol/L Carbon Dioxide 20 L (22-30) mmol/L Anion Gap 16 mmol/L BUN 8 L (9-20) mg/dL Creatinine 0.57 L (0.66-1.25) mg/dL Est GFR (CKD-EPI)AfAm >90 (>60 ml/min/1.73 sqM) Est GFR (CKD-EPI)NonAf >90 (>60 ml/min/1.73 sqM) Glucose 119 H (74-99) mg/dL Calcium 9.2 (8.4-10.2) mg/dL Magnesium 1.9 (1.6-2.3) mg/dL Total Bilirubin 0.8 (0.2-1.3) mg/dL AST 71 H (17-59) U/L ALT 49 (4-49) U/L Alkaline Phosphatase 198 H (38-126) U/L Total Protein 9.1 H (6.3-8.2) g/dL Albumin 4.3 (3.5-5.0) g/dL Serum Alcohol 427 H* mg/dL Disposition Clinical Impression: Alcoholic intoxication Disposition: ADMITTED IP TO THIS HOSP Condition: Fair Time of Disposition: 02:52
[2024-01-15 02:15] LABS: Anisocytosis Slight; Basophils % (A) 1 %; Eosinophils % (A) 1 %; HCT 41.9 % (39.0-53.0); HGB 12.9 gm/dL (13.0-17.5); Lymphocytes # (A) 2.3 k/uL (1.0-4.8); Lymphocytes % (A) 47 %; MCH 28.5 pg (25.0-35.0); MCHC 30.8 g/dL (31.0-37.0); MCV 92.4 fL (80.0-100.0); Mean Platelet Volume 7.2; Monocytes # (A) 0.3 k/uL (0-1.0); Monocytes % (A) 7 %; Neutrophils % (A) 41 %; RBC 4.53 m/uL (4.30-5.90); RDW 16.7 % (11.5-15.5); WBC 4.9 k/uL (3.8-10.6)
[2024-01-15 02:22] LABS: ALT 49 U/L (4-49); AST 71 U/L (17-59); African American GFR (CKD) >90 (>60 ml/min/1.73 sqM); Albumin 4.3 g/dL (3.5-5.0); Alkaline Phosphatase 198 U/L (38-126); Anion Gap 16 mmol/L; Blood Urea Nitrogen 8 mg/dL (9-20); Calcium 9.2 mg/dL (8.4-10.2); Carbon Dioxide 20 mmol/L (22-30); Chloride 104 mmol/L (98-107); Glucose 119 mg/dL (74-99); Magnesium 1.9 mg/dL (1.6-2.3); Non-African American GFR(CKD) >90 (>60 ml/min/1.73 sqM); Potassium 3.9 mmol/L (3.5-5.1); Sodium 140 mmol/L (137-145); Total Bilirubin 0.8 mg/dL (0.2-1.3); Total Protein 9.1 g/dL (6.3-8.2)
[2024-01-15 02:24] LABS: Platelet Count 323 k/uL (150-450)
[2024-01-15 02:36] LABS: Alcohol 427 mg/dL
[2024-01-15] MEDS ORDERED: NALOXONE 0.4 MG/ML 1 ML VIAL IV PRN (02:51)
[2024-01-15] MEDS ORDERED: LORazepam 2 MG/ML INJ IV PRN ×2 (02:52)
[2024-01-15] MEDS: LORazepam 2 MG/ML INJ IV PRN (23:25)
--- NOTE | 2024-01-16 00:11 | HP ---
HISTORY AND PHYSICAL CHIEF COMPLAINT: Acute alcohol intoxication. HISTORY OF PRESENT ILLNESS: This is another admission recently for this 43-year-old -[place] male who has been in and out of the hospital almost weekly for the last several months for acute alcohol intoxication. REVIEW OF SYSTEMS: At present is not reliably obtained. Past medical history, family history, and personal and social histories are all otherwise unobtainable and unremarkable. He has had a history of seizures related to his alcoholism. PHYSICAL EXAMINATION: VITAL SIGNS: Blood pressure is 142/109. He had tachycardia at 105 beats a minute. He is afebrile. SKIN: Dry. HEENT: Head, ears, eyes, nose, mouth and throat were normal and there is no icterus. CHEST: Clear. CARDIAC: Normal. ABDOMEN: Soft, nontender without any masses or visceromegaly. EXTREMITIES: Normal. NEUROLOGIC: He is intoxicated. DIAGNOSES: He is admitted to the hospital with diagnoses, 1. Acute alcohol intoxication. 2. Chronic alcoholism. 3. History of alcoholic seizures. 4. Hypertension. PLAN: 1. Bed rest. 2. IV fluids. 3. Manage hypertension. 4. [place] protocol. MMGURUL / LILLIEN: [id number] /
[2024-01-16] MEDS: THIAMINE 100 MG TAB PO SCH (09:00)
[2024-01-17 07:55] VITALS: RESP 18; TEMP 98.2
[2024-01-17] MEDS: allopurinoL 300 MG TAB PO SCH (12:32)
[2024-01-17 14:53] VITALS: BP 135/94; PULSE 100
[2024-01-17] MEDS ORDERED: INDOMETHACIN 25 MG CAP PO SCH (16:00)
--- NOTE | 2024-01-20 03:44 | PN ---
PROGRESS NOTE DATE OF SERVICE: 01/16/2024 CHIEF COMPLAINT: Acute alcohol intoxication. HISTORY OF PRESENT ILLNESS: This gentleman is still intoxicated. Blood pressure is little bit better. PHYSICAL EXAMINATION: CHEST: Clear. CARDIAC: Demonstrates tachycardia. ABDOMEN: Soft and nontender. IMPRESSION: 1. Acute alcohol intoxication. 2. Seizure disorder. PLAN: Continue with [facility] protocol. MMODL / IJN: [id number] /
--- NOTE | 2024-01-20 06:29 | DS ---
DISCHARGE SUMMARY CHIEF COMPLAINT: Acute alcohol intoxication. HISTORY OF PRESENT ILLNESS AND PHYSICAL EXAMINATION: Details of this man's history and physical can be found in the initial workup. LABORATORY STUDIES: While he was in the hospital, he had laboratory studies, details of which can be found in the laboratory section of his chart. COURSE IN THE HOSPITAL: After admission, he was placed on bedrest, started on intravenous fluids and CIWA protocol. He did well. He is doing well enough to be discharged on the , but he left A. FINAL DIAGNOSES: 1. Acute alcohol intoxication. 2. Delirium tremens. 3. Hypertension. OPERATIONS: None. CONSULTATION: None. MMODL / IJN: [id number] /
== END 2024-01-17 16:36 | disposition left against medical advice (07) ==
LOC: EC 01:31 → 6NMEDSUR 02:52
PROVIDERS: ADMIT Family Medicine; ATTEND Family Medicine
DX: F10.229 Alcohol dependence with intoxication, unspecified (principal); F10.231 Alcohol dependence with withdrawal delirium; I10 Essential (primary) hypertension; Z53.29 Procedure and treatment not carried out because of patient's decision for other reasons; Y90.8 Blood alcohol level of 240 mg/100 ml or more; Z79.899 Other long term (current) drug therapy
CPT/HCPCS: 96374; 99285; 36415; 80053; 83735; 85025; 80320; G0378 ×3; J2060

== ENCOUNTER 2024-01-19 02:07 | Emergency (ER) | payer OTHER ==
--- NOTE | 2024-01-19 07:19 | ED ---
Seizure HPI - General Chief Complaint: Seizure Stated Complaint: Seizure Time Seen by Provider: 01/19/24 02:26 Source: patient, EMS Mode of arrival: EMS Limitations: no limitations - History of Present Illness Initial Comments: This patient is a 43-year-old man who has history of previous seizures, brought by ambulance to evaluation after he states he had a seizure tonight. The patient denies injury. He denies new neurologic complaints or headache. MD Complaint: seizure -: minutes(s) Description of Episode: loss of consciousness -: second(s) Witnessed: yes - by bystander Trauma: No Seizure History: known seizure disorder Possible Precipitating Event: none Associated Symptoms: denies other symptoms Treatments Prior to Arrival: none - Related Data Previous Rx's Medication Instructions Recorded Indomethacin [Indocin] 50 mg PO TID #14 cap 01/28/24 Thiamine [Vitamin B-1] 100 mg PO BID #60 tab 01/28/24 allopurinoL [Zyloprim] 300 mg PO DAILY #30 tab 01/28/24 Allergies Allergy/AdvReac Type Severity Reaction Status Date / Time No Known Allergies Allergy Verified 01/30/24 22:05 Review of Systems ROS Statement: Those systems with pertinent positive or pertinent negative responses have been documented in the HPI. ROS Other: All systems not noted in ROS Statement are negative. Constitutional: Denies: fever, chills Eyes: Denies: vision change Respiratory: Denies: cough, dyspnea Cardiovascular: Denies: chest pain, palpitations, edema Gastrointestinal: Denies: abdominal pain, nausea, vomiting Genitourinary: Denies: dysuria, hematuria Musculoskeletal: Reports: arthralgia. Denies: back pain Skin: Denies: rash Neurological: Denies: headache, weakness, numbness Past Medical History Past Medical History: Hypertension, Pneumonia, Seizure Disorder Additional Past Medical History / Comment(s): ETOH History of Any Multi-Drug Resistant Organisms: None Reported Past Surgical History: Joint Replacement, Orthopedic Surgery Additional Past Surgical History / Comment(s): Right knee surgery, left leg incision and drainage for spider bite, jaw surgery 2018 Past Anesthesia/Blood Transfusion Reactions: No Reported Reaction Past Psychological History: Anxiety Smoking Status: Never smoker Past Alcohol Use History: Abuse, Daily Past Drug Use History: None Reported - Past Family History Sister(s) Family Medical History: Diabetes Mellitus Mother Family Medical History: Diabetes Mellitus Additional Family Medical History / Comment(s): from sudhakar johnsons syndrome Father Family Medical History: Diabetes Mellitus, Myocardial Infarction ([place]) Additional Family Medical History / Comment(s): from dm complications General Exam Limitations: no limitations General appearance: alert, appears intoxicated Head exam: Present: atraumatic, normocephalic Eye exam: Present: normal appearance, PERRL, EOMI, nystagmus. Absent: scleral icterus, conjunctival injection ENT exam: Present: mucous membranes dry Neck exam: Present: normal inspection, full ROM. Absent: tenderness Respiratory exam: Present: normal lung sounds bilaterally. Absent: respiratory distress, wheezes, rales, rhonchi, stridor Cardiovascular Exam: Present: regular rate, normal rhythm, normal heart sounds. Absent: systolic murmur, diastolic murmur, rubs, gallop GI/Abdominal exam: Present: soft. Absent: distended, tenderness, guarding, rebound, rigid Extremities exam: Present: full ROM, normal capillary refill, other (The patient does have a small effusion right knee. No bony tenderness or deformity). Absent: pedal edema, calf tenderness Back exam: Present: normal inspection. Absent: CVA tenderness (R), CVA tenderness (L) Neurological exam: Present: alert Skin exam: Present: warm, dry, intact, normal color. Absent: rash Course Vital Signs 01/19/24 01/19/24 01/19/24 02:11 04:01 06:32 Temperature 97.4 F L Pulse Rate 99 97 91 Respiratory 18 18 18 Rate Blood Pressure 127/93 135/99 115/83 O2 Sat by Pulse 100 100 98 Oximetry 01/19/24 08:05 Temperature 98.0 F Pulse Rate 90 Respiratory 17 Rate Blood Pressure 122/88 O2 Sat by Pulse 99 Oximetry Medical Decision Making - Medical Decision Making This patient is 43-year-old man with history of seizure disorder who arrives to have evaluation after having had seizure tonight. The patient has returned to baseline. Discussed appropriate further care and follow-up with neurology. On exam patient found to have small effusion at the right knee. He states that he did fall on this within the past couple weeks. Discussed follow-up with orthopedics if this does not completely resolve or if he should have redness, warmth or restricted range of motion. Discussed return parameters Was pt. sent in by a medical professional or institution (DEVIN Woo, TRUCK DRIVER RUBBISH COLLECTOR, urgent care, hospital, or skilled nursing...) When possible be specific @ -[No] Did you speak to anyone other than the patient for history (EMS, parent, family, police, friend...)? What history was obtained from this source @ -[No] Did you review nursing and triage notes (agree or disagree)? Why? @ -[I reviewed and agree with nursing and triage notes] Were old charts reviewed (outside hosp., previous admission, EMS record, old EKG, old radiological studies, urgent care reports/EKG's, skilled nursing records)? Report findings @ -[No old charts were reviewed] Differential Diagnosis (chest pain, altered mental status, abdominal pain women, abdominal pain men, vaginal bleeding, weakness, fever, dyspnea, syncope, headache, dizziness, GI bleed, back pain, seizure, CVA, palpatations, mental health, musculoskeletal)? @ -[Differential Seizure: Recurrent seizure disorder, febrile seizure, alcohol withdrawal, stimulants, meningitis, encephalitis, intercranial hemorrhage, intracranial tumor, stroke, eclampsia, thyrotoxicosis, hypocalcemia, hyponatremia, hypernatremia, hypomagnesemia, psychogenic, this is not meant to be an all-inclusive list. EKG interpreted by me (3pts min.). @ -[As above] X-rays interpreted by me (1pt min.). @ -[None done] CT interpreted by me (1pt min.). @ -[None done] U/S interpreted by me (1pt. min.). @ -[None done] What testing was considered but not performed or refused? (CT, X-rays, U/S, labs)? Why? @ -[None] What meds were considered but not given or refused? Why? @ -[None] Did you discuss the management of the patient with other professionals (professionals i.e. DEVIN Woo, TRUCK DRIVER RUBBISH COLLECTOR, lab, RT, psych nurse, licensed social worker, professor of oceanography, teacher, credit administration officer, lead case manager)? Give summary @ -[No] Was smoking cessation discussed for >3mins.? @ -[No] Was critical care preformed (if so, how long)? @ -[No] Were there social determinants of health that impacted care today? How? (Homelessness, low income, unemployed, alcoholism, drug addiction, transportation, low edu. Level, literacy, decrease access to med. care, [facility], rehab)? @ -[No] Was there de-escalation of care discussed even if they declined (Discuss DNR or withdrawal of care, Hospice)? DNR status @ -[No] What co-morbidities impacted this encounter? (DM, HTN, Smoking, COPD, CAD, Cancer, CVA, ARF, Chemo, Hep., AIDS, mental health diagnosis, sleep apnea, morbid obesity)? @ -[Seizure disorder. Chronic alcohol use Was patient admitted / discharged? Hospital course, mention meds given and route, prescriptions, significant lab abnormalities, going to OR and other pertinent info. @ -[As above Undiagnosed new problem with uncertain prognosis? @ -[No] Drug Therapy requiring intensive monitoring for toxicity (Heparin, Nitro, Insulin, Cardizem)? @ -[No] Were any procedures done? @ -[No] Diagnosis/symptom? @ -[Acute seizure Right knee effusion Acute, or Chronic, or Acute on Chronic? @ -[Acute on chronic Uncomplicated (without systemic symptoms) or Complicated (systemic symptoms)? @ -[Uncomplicated Side effects of treatment? @ -[No] Exacerbation, Progression, or Severe Exacerbation? @ -[No] Poses a threat to life or bodily function? How? (Chest pain, USA, [place], pneumonia, PE, COPD, DKA, ARF, appy, cholecystitis, CVA, Diverticulitis, Homicidal, Suicidal, threat to staff... and all critical care pts) @ -[No] Disposition Clinical Impression: Generalized seizure, Knee effusion, right Disposition: HOME SELF-CARE Instructions (If sedation given, give patient instructions): Seizure/Epilepsy Discharge Instructions & Follow-Up, Swollen Knee Joint (ED) Is patient prescribed a controlled substance at d/c from ED?: No Referrals: Luis Cho MD [Primary Care Provider] - 1-2 days
[2024-01-19 08:29] VITALS: BP 122/88; PULSE 90; RESP 17; TEMP 98
== END 2024-01-19 08:05 | disposition home or self-care (01) ==
LOC: EC 02:07
DX: G40.409 Other generalized epilepsy and epileptic syndromes, not intractable, without status epilepticus (principal); M25.461 Effusion, right knee
CPT/HCPCS: 99285

== ENCOUNTER 2024-01-22 23:35 | Emergency (ER) | payer OTHER ==
--- NOTE | 2024-01-22 23:52 | ED ---
General Adult HPI - General Chief complaint: Alcohol Stated complaint: seizure Time Seen by Provider: 01/22/24 23:37 Source: patient, EMS, RN notes reviewed, old records reviewed Mode of arrival: EMS Limitations: no limitations - History of Present Illness Initial comments: 43-year-old male presenting with alcohol intoxication. Patient states he believ es he had a stress-induced seizure. He states that he was in an argument and had a momentary seizure without injury. No postictal period he does state this was stress-induced. He admits that alcohol consumption this evening. No physical complaints. - Related Data Home Medications Medication Instructions Recorded Confirmed allopurinoL [Zyloprim] 300 mg PO DIRECTED 01/15/24 01/15/24 Previous Rx's Medication Instructions Recorded methylPREDNISolone Dose Pack 4 mg PO DIRECTED #21 tab 01/04/24 [Medrol Dose Pack] Allergies Allergy/AdvReac Type Severity Reaction Status Date / Time No Known Allergies Allergy Verified 01/22/24 23:41 Review of Systems ROS Statement: Those systems with pertinent positive or pertinent negative responses have been documented in the HPI. ROS Other: All systems not noted in ROS Statement are negative. Past Medical History Past Medical History: Hypertension, Pneumonia, Seizure Disorder Additional Past Medical History / Comment(s): ETOH History of Any Multi-Drug Resistant Organisms: None Reported Past Surgical History: Joint Replacement, Orthopedic Surgery Additional Past Surgical History / Comment(s): Right knee surgery, left leg incision and drainage for spider bite, jaw surgery 2018 Past Anesthesia/Blood Transfusion Reactions: No Reported Reaction Past Psychological History: Anxiety Smoking Status: Never smoker Past Alcohol Use History: Abuse, Daily Past Drug Use History: None Reported - Past Family History Sister(s) Family Medical History: Diabetes Mellitus Mother Family Medical History: Diabetes Mellitus Additional Family Medical History / Comment(s): from sudhakar johnsons syndrome Father Family Medical History: Diabetes Mellitus, Myocardial Infarction (ME) Additional Family Medical History / Comment(s): from dm complications General Exam General appearance: alert, appears intoxicated Head exam: Present: atraumatic, normocephalic Eye exam: Present: normal appearance, PERRL ENT exam: Present: normal exam Neck exam: Present: normal inspection. Absent: tenderness Respiratory exam: Present: normal lung sounds bilaterally. Absent: respiratory distress, wheezes Cardiovascular Exam: Present: regular rate, normal rhythm GI/Abdominal exam: Present: soft. Absent: distended Extremities exam: Present: normal inspection, normal capillary refill Neurological exam: Present: alert, oriented X3, CN II-XII intact. Absent: motor sensory deficit Psychiatric exam: Present: normal affect, normal mood Skin exam: Present: warm, dry, intact Course Vital Signs 01/22/24 23:38 Temperature 96.7 F L Pulse Rate 93 Respiratory 18 Rate Blood Pressure 133/96 O2 Sat by Pulse 98 Oximetry Medical Decision Making - Medical Decision Making Was pt. sent in by a medical professional or institution (, DEVIN, DIPLOMA PHARMACY TECHNICIAN, urgent care, hospital, or half-way...) When possible be specific @ -No Did you speak to anyone other than the patient for history (EMS, parent, family, police, friend...)? What history was obtained from this source @ -No Did you review nursing and triage notes (agree or disagree)? Why? @ -I reviewed and agree with nursing and triage notes Were old charts reviewed (outside hosp., previous admission, EMS record, old EKG, old radiological studies, urgent care reports/EKG's, half-way records)? Report findings @ -No old charts were reviewed Differential Diagnosis @ -Differential Seizure: Recurrent seizure disorder, febrile seizure, alcohol withdrawal, stimulants, meningitis, encephalitis, intercranial hemorrhage, intracranial tumor, stroke, eclampsia, thyrotoxicosis, hypocalcemia, hyponatremia, hypernatremia, hypomagnesemia, psychogenic, this is not meant to be an all-inclusive list. EKG interpreted by me (3pts min.). @ -As above X-rays interpreted by me (1pt min.). @ -None done CT interpreted by me (1pt min.). @ -None done U/S interpreted by me (1pt. min.). @ -None done What testing was considered but not performed or refused? (CT, X-rays, U/S, labs)? Why? @ -None What meds were considered but not given or refused? Why? @ -None Did you discuss the management of the patient with other professionals (professionals i.e. DEVIN Woo, DIPLOMA PHARMACY TECHNICIAN, lab, RT, psych nurse, social science professor, conservator artifacts, teacher, transit authority police officer, catalytic case operator)? Give summary @ -No Was smoking cessation discussed for >3mins.? @ -No Was critical care preformed (if so, how long)? @ -No Were there social determinants of health that impacted care today? How? (Homelessness, low income, unemployed, alcoholism, drug addiction, transportation, low edu. Level, literacy, decrease access to med. care, halfway, rehab)? @ -No Was there de-escalation of care discussed even if they declined (Discuss DNR or withdrawal of care, Hospice)? DNR status @ -No What co-morbidities impacted this encounter? (DM, HTN, Smoking, COPD, CAD, Cancer, CVA, ARF, Chemo, Hep., AIDS, mental health diagnosis, sleep apnea, morbid obesity)? @ -Alcohol abuse, history of seizure disorder Was patient admitted / discharged? Hospital course, mention meds given and route, prescriptions, significant lab abnormalities, going to OR and other pertinent info. @ -43-year-old male with possible seizure, states that he had a brief seizure- like activity which was triggered by stress. Patient awake and alert, he is clinically intoxicated upon arrival but he is alert and oriented x 3 without specific complaint. He is observed in the emergency department until clinically sober. There is no further seizure activity. Vital signs remained stable. Undiagnosed new problem with uncertain prognosis? @ -No Drug Therapy requiring intensive monitoring for toxicity (Heparin, Nitro, Insulin, Cardizem)? @ -No Were any procedures done? @ -No Diagnosis/symptom? @Alcohol intoxication Acute, or Chronic, or Acute on Chronic? @Acute on chronic Uncomplicated (without systemic symptoms) or Complicated (systemic symptoms)? @ -Default Side effects of treatment? @ -No Exacerbation, Progression, or Severe Exacerbation? @ -No Poses a threat to life or bodily function? How? (Chest pain, USA, ME, pneumonia, PE, COPD, DKA, ARF, appy, cholecystitis, CVA, Diverticulitis, Homicidal, Suicidal, threat to staff... and all critical care pts) @ -Low risk at this time Disposition Clinical Impression: ETOH abuse, Alcoholic intoxication Disposition: HOME SELF-CARE Condition: Fair Instructions (If sedation given, give patient instructions): Alcohol Intoxication (ED) Is patient prescribed a controlled substance at d/c from ED?: No Referrals: Luis Cho MD [Primary Care Provider] - 1-2 days Time of Disposition: 03:00
[2024-01-22 23:58] VITALS: TEMP 96.7
[2024-01-23 04:44] VITALS: BP 113/78
[2024-01-23 06:01] VITALS: PULSE 89; RESP 17
== END 2024-01-23 05:54 | disposition home or self-care (01) ==
LOC: EC 23:35
DX: F10.129 Alcohol abuse with intoxication, unspecified (principal)
CPT/HCPCS: 99284

== ENCOUNTER 2024-01-26 01:40 | Observation (INO) | payer OTHER ==
--- NOTE | 2024-01-26 02:01 | ED ---
General Adult HPI - General Chief complaint: Extremity Injury, Lower Stated complaint: Right knee pain Time Seen by Provider: 01/26/24 01:48 Source: EMS Limitations: no limitations - History of Present Illness Initial comments: 43-year-old male well-known to our department secondary to alcohol intoxication presenting to the ED with complaints of right knee pain. Patient reports history of gout. Reports that he has been taking his allopurinol and steroids. Despite this reports some pain of his right knee. No fever or chills. Of note, patient asking for Ativan. Patient is a daily drinker and reports his last drink was today. Patient also asking for food and beverage. No other complaints at this time. - Related Data Home Medications Medication Instructions Recorded Confirmed allopurinoL [Zyloprim] 300 mg PO DIRECTED 01/15/24 01/15/24 Previous Rx's Medication Instructions Recorded methylPREDNISolone Dose Pack 4 mg PO DIRECTED #21 tab 01/04/24 [Medrol Dose Pack] Allergies Allergy/AdvReac Type Severity Reaction Status Date / Time No Known Allergies Allergy Verified 01/22/24 23:41 Review of Systems ROS Statement: Those systems with pertinent positive or pertinent negative responses have been documented in the HPI. ROS Other: All systems not noted in ROS Statement are negative. Past Medical History Past Medical History: Hypertension, Pneumonia, Seizure Disorder Additional Past Medical History / Comment(s): ETOH History of Any Multi-Drug Resistant Organisms: None Reported Past Surgical History: Joint Replacement, Orthopedic Surgery Additional Past Surgical History / Comment(s): Right knee surgery, left leg incision and drainage for spider bite, jaw surgery 2018 Past Anesthesia/Blood Transfusion Reactions: No Reported Reaction Past Psychological History: Anxiety Smoking Status: Never smoker Past Alcohol Use History: Abuse, Daily Past Drug Use History: None Reported - Past Family History Sister(s) Family Medical History: Diabetes Mellitus Mother Family Medical History: Diabetes Mellitus Additional Family Medical History / Comment(s): from sudhakar johnsons syndrome Father Family Medical History: Diabetes Mellitus, Myocardial Infarction (ND) Additional Family Medical History / Comment(s): from dm complic ations General Exam Limitations: no limitations General appearance: alert, in no apparent distress Eye exam: Present: normal appearance Neck exam: Present: normal inspection Respiratory exam: Present: normal lung sounds bilaterally Cardiovascular Exam: Present: regular rate GI/Abdominal exam: Present: soft Extremities exam: Present: other (Right knee shows no significant warmth, pedro thema, edema. Does admit to some tenderness to palpation.) Neurological exam: Present: alert, other (Intoxicated) Skin exam: Present: warm, dry Course Vital Signs 01/26/24 01:45 Temperature 97.9 F Pulse Rate 109 H Respiratory 18 Rate Blood Pressure 147/86 O2 Sat by Pulse 96 Oximetry Medical Decision Making - Medical Decision Making Was pt. sent in by a medical professional or institution (, DEVIN, FINANCIAL COST ANALYST, urgent care, hospital, or detention...) When possible be specific @ -No Did you speak to anyone other than the patient for history (EMS, parent, family, police, friend...)? What history was obtained from this source @ -No Did you review nursing and triage notes (agree or disagree)? Why? @ -I reviewed and agree with nursing and triage notes Were old charts reviewed (outside hosp., previous admission, EMS record, old EKG, old radiological studies, urgent care reports/EKG's, detention records)? Report findings @ -No old charts were reviewed Differential Diagnosis (chest pain, altered mental status, abdominal pain women, abdominal pain men, vaginal bleeding, weakness, fever, dyspnea, syncope, headache, dizziness, GI bleed, back pain, seizure, CVA, palpatations, mental health, musculoskeletal)? @ -Differential Musculoskeletal Muscular strain, contusion, ligament sprain, fracture, arthritis, septic arthritis, bursitis, cellulitis, muscle spasm, nerve compression, DVT, arterial occlusion, herpes zoster, electrolyte abnormality, tumor.... This is not meant to be in all inclusive list EKG interpreted by me (3pts min.). @ -None X-rays interpreted by me (1pt min.). @ -None done CT interpreted by me (1pt min.). @ -None done U/S interpreted by me (1pt. min.). @ -None done What testing was considered but not performed or refused? (CT, X-rays, U/S, labs)? Why? @ -None What meds were considered but not given or refused? Why? @ -None Did you discuss the management of the patient with other professionals (professionals i.e. , DEVIN, FINANCIAL COST ANALYST, lab, RT, psych nurse, social media assistant, gis analyst developer, teacher, legal compliance officer, manager rn case)? Give summary @ -Case discussed with Dr. Cho who accepts admission of the patient. Was smoking cessation discussed for >3mins.? @ -No Was critical care preformed (if so, how long)? @ -No Were there social determinants of health that impacted care today? How? (Homelessness, low income, unemployed, alcoholism, drug addiction, transportation, low edu. Level, literacy, decrease access to med. care, [facility], rehab)? @ -No Was there de-escalation of care discussed even if they declined (Discuss DNR or withdrawal of care, Hospice)? DNR status @ -No What co-morbidities impacted this encounter? (DM, HTN, Smoking, COPD, CAD, Cancer, CVA, ARF, Chemo, Hep., AIDS, mental health diagnosis, sleep apnea, morbid obesity)? @ -Alcoholism Was patient admitted / discharged? Hospital course, mention meds given and route, prescriptions, significant lab abnormalities, going to OR and other pertinent info. @ -Discharge 43-year-old male presenting to the ED with complaints of right knee pain. Patient reports pain is consistent with history of gout and denies any new injury or trauma. Patient given Toradol here and patient reports improvement of pain. Laboratory studies reviewed. Labs show an elevated alcohol at 273. Patient will be admitted to observation due to alcohol intoxication. Undiagnosed new problem with uncertain prognosis? @ -No Drug Therapy requiring intensive monitoring for toxicity (Heparin, Nitro, Insulin, Cardizem)? @ -No Were any procedures done? @ -No Diagnosis/symptom? @ -Alcohol intoxication, right knee pain Acute, or Chronic, or Acute on Chronic? @ -Acute on chronic Uncomplicated (without systemic symptoms) or Complicated (systemic symptoms)? @ -Uncomplicated Side effects of treatment? @ -No Exacerbation, Progression, or Severe Exacerbation? @ -No Poses a threat to life or bodily function? How? (Chest pain, USA, ND, pneumonia, PE, COPD, DKA, ARF, appy, cholecystitis, CVA, Diverticulitis, Homicidal, Suicidal, threat to staff... and all critical care pts) @ -No - Lab Data Result diagrams: 01/26/24 02:09 01/26/24 02:09 Lab Results 04/14/24 04/14/24 04/14/24 Range/Units 01:59 02:09 02:09 WBC 4.4 (3.8-10.6) k/uL RBC 4.28 L (4.30-5.90) m/uL Hgb 12.3 L (13.0-17.5) gm/dL Hct 38.5 L (39.0-53.0) % MCV 89.9 (80.0-100.0) fL MCH 28.7 (25.0-35.0) pg MCHC 32.0 (31.0-37.0) g/dL RDW 16.5 H (11.5-15.5) % Plt Count 133 L D (150-450) k/uL MPV 8.1 Neutrophils % 36 % Lymphocytes % 49 % Monocytes % 7 % Eosinophils % 1 % Basophils % 1 % Neutrophils # 1.6 (1.3-7.7) k/uL Lymphocytes # 2.2 (1.0-4.8) k/uL Monocytes # 0.3 (0-1.0) k/uL Eosinophils # 0.1 (0-0.7) k/uL Basophils # 0.1 (0-0.2) k/uL Anisocytosis Slight Sodium 137 (137-145) mmol/L Potassium 4.1 (3.5-5.1) mmol/L Chloride 102 (98-107) mmol/L Carbon Dioxide 17 L (22-30) mmol/L Anion Gap 18 mmol/L BUN 14 (9-20) mg/dL Creatinine 0.96 (0.66-1.25) mg/dL Est GFR (CKD-EPI)AfAm >90 (>60 ml/min/1.73 sqM) Est GFR (CKD-EPI)NonAf >90 (>60 ml/min/1.73 sqM) Glucose 90 (74-99) mg/dL Calcium 9.0 (8.4-10.2) mg/dL Total Bilirubin 1.0 (0.2-1.3) mg/dL AST 164 H (17-59) U/L ALT 64 H (4-49) U/L Alkaline Phosphatase 161 H (38-126) U/L Total Protein 8.9 H (6.3-8.2) g/dL Albumin 4.4 (3.5-5.0) g/dL Urine Color Colorless Urine Appearance Clear (Clear) Urine pH 5.0 (5.0-8.0) Ur Specific [place] 1.003 (1.001-1.035) Urine Protein Negative (Negative) Urine Glucose (UA) Negative (Negative) Urine Ketones Trace H (Negative) Urine Blood Negative (Negative) Urine Nitrite Negative (Negative) Urine Bilirubin Negative (Negative) Urine Urobilinogen <2.0 (<2.0) mg/dL Ur Leukocyte Esterase Negative (Negative) Serum Alcohol 273 H* mg/dL Disposition Clinical Impression: Alcohol intoxication, Right knee pain Disposition: ADMITTED IP TO THIS HOSP Condition: Good Referrals: Luis Cho MD [Primary Care Provider] - 1-2 days Time of Disposition: 03:39
[2024-01-26 02:09] LABS: Appearance,Urine Clear (Clear); Bilirubin,Urine Negative (Negative); Blood,Urine Negative (Negative); Color,Urine Colorless; Glucose,Urine (UA) Negative (Negative); Ketones,Urine Trace (Negative); Leukocyte Esterase,Urine Negative (Negative); Nitrite,Urine Negative (Negative); Protein,Urine Negative (Negative); Specific Gravity,Urine 1.003 (1.001-1.035); Urobilinogen,Urine <2.0 mg/dL (<2.0)
[2024-01-26 02:24] LABS: Anisocytosis Slight; HCT 38.5 % (39.0-53.0); HGB 12.3 gm/dL (13.0-17.5); MCH 28.7 pg (25.0-35.0); MCV 89.9 fL (80.0-100.0); Mean Platelet Volume 8.1; RBC 4.28 m/uL (4.30-5.90); RDW 16.5 % (11.5-15.5); WBC 4.4 k/uL (3.8-10.6)
[2024-01-26] MEDS: KETOROLAC 15 MG/ML 1 ML VIAL IVP STA (02:28)
[2024-01-26 02:56] LABS: ALT 64 U/L (4-49); AST 164 U/L (17-59); African American GFR (CKD) >90 (>60 ml/min/1.73 sqM); Albumin 4.4 g/dL (3.5-5.0); Alkaline Phosphatase 161 U/L (38-126); Anion Gap 18 mmol/L; Blood Urea Nitrogen 14 mg/dL (9-20); Carbon Dioxide 17 mmol/L (22-30); Chloride 102 mmol/L (98-107); Glucose 90 mg/dL (74-99); Non-African American GFR(CKD) >90 (>60 ml/min/1.73 sqM); Potassium 4.1 mmol/L (3.5-5.1); Sodium 137 mmol/L (137-145); Total Protein 8.9 g/dL (6.3-8.2)
[2024-01-26 03:03] LABS: Alcohol 273 mg/dL
[2024-01-26 03:27] LABS: Platelet Count 133 k/uL (150-450)
[2024-01-26] MEDS ORDERED: ONDANSETRON 4 MG/2 ML VIAL IVP PRN (03:57)
[2024-01-26] MEDS ORDERED: NALOXONE 0.4 MG/ML 1 ML VIAL IV PRN (03:57)
[2024-01-26 04:16] LABS: Band Neutrophils % 2 %; Basophils # (M) 0.04 k/uL (0-0.2); Eosinophils # (M) 0.09 k/uL (0-0.7); Lymphocytes # (M) 2.46 k/uL (1.0-4.8); Monocytes # (M) 0.26 k/uL (0-1.0); Neutrophils % (M) 33 %; Nucleated Red Blood Cells 0 /100 WBC (0-0); Poikilocytosis (M) Present; Total Cells Counted 100
[2024-01-26] MEDS: SODIUM CHLORIDE 0.9% 1,000 ML IV SCH (04:49)
[2024-01-26] MEDS ORDERED: LORazepam 2 MG/ML INJ IV PRN ×3 (17:15)
[2024-01-26] MEDS: THIAMINE 100 MG/ML 2 ML VIAL IM STA (18:04)
--- NOTE | 2024-01-26 20:24 | HP ---
HISTORY AND PHYSICAL CHIEF COMPLAINT: Acute alcohol intoxication and DTs with pain in the right knee. HISTORY OF PRESENT ILLNESS: This is another recent admission for this 43-year-old male, chronic alcoholic. He was recently in the hospital and has been frequently for acute alcohol intoxication and DTs. He has also been having trouble with the knees and he presents with right knee pain and swelling. This is gout. REVIEW OF SYSTEMS: Not obtainable. Past medical history, family history, and personal and social histories are all otherwise unchanged. He does have a history of alcohol withdrawal seizures. PHYSICAL EXAMINATION: VITAL SIGNS: He is tachycardic. Blood pressure is elevated at 162/91. HEAD, EARS, EYES, NOSE, MOUTH AND THROAT: Normal. CHEST: Clear. CARDIAC: Normal. ABDOMEN: Soft, nontender. EXTREMITIES: Normal except for the right knee where he has an effusion. IMPRESSION: 1. Acute alcohol intoxication. 2. Delirium tremens. 3. Chronic alcoholism. 4. Hypertension. 5. Gout of the right knee. PLAN: 1. Bed rest. 2. IV fluids. 3. [facility] protocol. MMBURKE / LILLIEN: [id number] /
[2024-01-27] MEDS: THIAMINE 100 MG TAB PO SCH (08:09)
[2024-01-27] MEDS: INDOMETHACIN 25 MG CAP PO SCH (12:03)
[2024-01-27] MEDS: allopurinoL 300 MG TAB PO SCH (12:03)
[2024-01-28] MEDS: MELATONIN 3 MG TABLET PO PRN (01:06)
[2024-01-28 07:17] VITALS: BP 131/88; PULSE 84; RESP 18; TEMP 98
--- NOTE | 2024-01-28 09:12 | PN ---
PROGRESS NOTE DATE OF SERVICE: 01/27/2024 CHIEF COMPLAINT: Acute alcohol intoxication. HISTORY OF PRESENT ILLNESS: This is a gentleman who is still in DTs. PHYSICAL EXAMINATION: VITAL SIGNS: Normal, but he has sinus tachycardia. CHEST: Clear. IMPRESSION: 1. DTs. 2. Chronic alcoholism. 3. Acute gout in the right knee. PLAN: Start zyloprim and Indocin. MMGURUL / LILLIEN: [id number] /
--- NOTE | 2024-01-29 13:45 | DS ---
DISCHARGE SUMMARY CHIEF COMPLAINT: Acute alcohol intoxication and acute arthritis of the right knee. HISTORY OF PRESENT ILLNESS AND PHYSICAL EXAMINATION: Details of this man's history and physical can be found in the initial workup. LABORATORY STUDIES: While he is in the hospital, he had laboratory studies, details of which can be found in the laboratory section of his chart. COURSE IN HOSPITAL: After admission, he was placed on bedrest with [facility]WA protocol and he was started on Indocin and zyloprim. His knee was improving and he was no longer in DTs. It was felt he could be discharged on the . FINAL DIAGNOSES: 1. Acute alcohol intoxication. 2. Chronic alcoholism. 3. History of alcohol withdrawal seizures. 4. Acute gout of the right knee. OPERATIONS: None. CONSULTATIONS: None, he is improved. ILIR / EDUARDO: [id number] /
== END 2024-01-28 12:49 | disposition home or self-care (01) ==
LOC: EC 01:40 → 4SSUR 03:44 → 6NMEDSUR 11:37
PROVIDERS: ADMIT Family Medicine; ATTEND Family Medicine
DX: F10.229 Alcohol dependence with intoxication, unspecified (principal); F10.231 Alcohol dependence with withdrawal delirium; M10.9 Gout, unspecified; M17.11 Unilateral primary osteoarthritis, right knee; I10 Essential (primary) hypertension; Y90.8 Blood alcohol level of 240 mg/100 ml or more; Z79.899 Other long term (current) drug therapy
CPT/HCPCS: 96372; 96374; 99285; 36415; 80053; 85025; 81003; 80320; G0378 ×4; J3411; J1885

== ENCOUNTER 2024-01-30 22:00 | Emergency (ER) | payer OTHER ==
[2024-01-30 22:35] VITALS: RESP 18; TEMP 98.2
--- NOTE | 2024-01-30 23:12 | ED ---
Seizure HPI - General Chief Complaint: Seizure Stated Complaint: ETOH Time Seen by Provider: 01/30/24 22:05 Source: EMS, RN notes reviewed, old records reviewed Mode of arrival: EMS Limitations: no limitations - History of Present Illness Initial Comments: This is a 43-year-old male who presents with possibility of seizure prior to arrival. Patient is known to this ER for evaluation multiple visits regarding seizure and alcohol intoxication. Patient presents to the pretenses of alcohol intoxication with seizure activity. MD Complaint: seizure -: unknown Description of Episode: loss of consciousness, tonic-clonic movement -: second(s) Witnessed: yes - by bystander Seizure History: known seizure disorder Place: home Possible Precipitating Event: none Associated Symptoms: denies other symptoms Treatments Prior to Arrival: none - Related Data Previous Rx's Medication Instructions Recorded Indomethacin [Indocin] 50 mg PO TID #14 cap 01/28/24 Thiamine [Vitamin B-1] 100 mg PO BID #60 tab 01/28/24 allopurinoL [Zyloprim] 300 mg PO DAILY #30 tab 01/28/24 Allergies Allergy/AdvReac Type Severity Reaction Status Date / Time No Known Allergies Allergy Verified 01/30/24 22:05 Review of Systems ROS Statement: Those systems with pertinent positive or pertinent negative responses have been documented in the HPI. ROS Other: All systems not noted in ROS Statement are negative. Past Medical History Past Medical History: Hypertension, Pneumonia, Seizure Disorder Additional Past Medical History / Comment(s): ETOH History of Any Multi-Drug Resistant Organisms: None Reported Past Surgical History: Joint Replacement, Orthopedic Surgery Additional Past Surgical History / Comment(s): Right leg. surgery, left leg incision and drainage for spider bite, jaw surgery 2018 Past Anesthesia/Blood Transfusion Reactions: No Reported Reaction Past Psychological History: Anxiety Smoking Status: Never smoker Past Alcohol Use History: Abuse, Daily Past Drug Use History: None Reported - Past Family History Sister(s) Family Medical History: Diabetes Mellitus Mother Family Medical History: Diabetes Mellitus Additional Family Medical History / Comment(s): from sudhakar johnsons syndrome Father Family Medical History: Diabetes Mellitus, Myocardial Infarction ([place]) Additional Family Medical History / Comment(s): from dm complications General Exam General appearance: alert, in no apparent distress, appears intoxicated, anxious Head exam: Present: atraumatic, normocephalic, normal inspection Eye exam: Present: normal appearance, PERRL, EOMI. Absent: scleral icterus, conjunctival injection, periorbital swelling ENT exam: Present: normal exam, mucous membranes moist Neck exam: Present: normal inspection. Absent: tenderness, meningismus, lymphadenopathy Respiratory exam: Present: normal lung sounds bilaterally. Absent: respiratory distress, wheezes, rales, rhonchi, stridor Cardiovascular Exam: Present: regular rate, normal rhythm, normal heart sounds. Absent: systolic murmur, diastolic murmur, rubs, gallop, clicks GI/Abdominal exam: Present: soft, normal bowel sounds. Absent: distended, tenderness, guarding, rebound, rigid Extremities exam: Present: normal inspection, full ROM, normal capillary refill. Absent: tenderness, pedal edema, joint swelling, calf tenderness Back exam: Present: normal inspection Neurological exam: Present: alert, oriented X3, CN II-XII intact Psychiatric exam: Present: normal affect, normal mood Skin exam: Present: warm, dry, intact, normal color. Absent: rash Course Vital Signs 01/30/24 01/31/24 01/31/24 22:02 00:05 02:05 Temperature 98.2 F Pulse Rate 93 92 84 Respiratory 18 18 18 Rate Blood Pressure 134/91 104/79 121/83 O2 Sat by Pulse 98 99 99 Oximetry 01/31/24 04:05 Temperature Pulse Rate 90 Respiratory 18 Rate Blood Pressure 106/76 O2 Sat by Pulse 100 Oximetry - Reevaluation(s) Reevaluation #1: 01/31/24 02:57 Medical records reviewed Reevaluation #2: 01/31/24 02:57 No significant seizure activity Reevaluation #3: 01/31/24 02:57 Patient informed of results questions answered Reevaluation #4: Was pt. sent in by a medical professional or institution (, PA, [employer], urgent care, hospital, or residential...) When possible be specific @ -no Did you speak to anyone other than the patient for history (EMS, parent, family, police, friend...)? What history was obtained from this source @ -no Did you review nursing and triage notes (agree or disagree)? Why? @ -agree Are old charts reviewed (outside hosp., previous admission, EMS record, old EKG, old radiological studies, urgent care reports/EKG's, residential records)? Report findings @ -yes Differential Diagnosis (chest pain, altered mental status, abdominal pain women, abdominal pain men, vaginal bleeding, weakness, fever, dyspnea, syncope, headache, dizziness, GI bleed, back pain, seizure, CVA, palpatations, mental health, musculoskeletal)? @ -prior EKG interpreted by me (3pts min.). @ -no X-rays interpreted by me (1pt min.). @ -no CT interpreted by me (1pt min.). @ -no U/S interpreted by me (1pt. min.). @ -no What testing was considered but not performed or refused? (CT, X-rays, U/S, labs)? Why? @ -none What meds were considered but not given or refused? Why? @ -none Did you discuss the management of the patient with other professionals (professionals i.e. , PA, [employer], lab, RT, psych nurse, social security specialist, pharmacy technician [place], teacher, custody officer, case technician)? Give summary @ -no Was smoking cessation discussed for >3mins.? @ -no Was critical care preformed (if so, how long)? @ -no Were there social determinants of health that impacted care today? How? (Homelessness, low income, unemployed, alcoholism, drug addiction, transportation, low edu. Level, literacy, decrease access to med. care, custodial, rehab)? @ -none Was there de-escalation of care discussed even if they declined (Discuss DNR or withdrawal of care, Hospice)? DNR status @ -no What co-morbidities impacted this encounter? (DM, HTN, Smoking, COPD, CAD, Cancer, CVA, ARF, Chemo, Hep., AIDS, mental health diagnosis, sleep apnea, morbid obesity)? @ -none Was patient admitted / discharged? Hospital course, mention meds given and route, prescriptions, significant lab abnormalities, going to OR and other pertinent info. @ - 43 male to ER for evaluation of seizure-like mental status. Patient has no significant findings here in the ER no recurrent symptoms here in the ER feels well can be discharged home well-known to this emergency department Discharge Undiagnosed new problem with uncertain prognosis? @ -no Drug Therapy requiring intensive monitoring for toxicity (Heparin, Nitro, Insulin, Cardizem)? @ -no Were any procedures done? @ -no Diagnosis/symptom? @ -Altered mental status and seizure Acute, or Chronic, or Acute on Chronic? @ -Acute Uncomplicated (without systemic symptoms) or Complicated (systemic symptoms)? @ -Complicated Side effects of treatment? @ -no Exacerbation, Progression, or Severe Exacerbation? @ -exacerbation Poses a threat to life or bodily function? How? (Chest pain, USA, [place], pneumonia, PE, COPD, DKA, ARF, appy, cholecystitis, CVA, Diverticulitis, Homicidal, Suicidal, threat to staff... and all critical care pts) @ -yes with seizure activity Reevaluation #5: Differential Seizure: Recurrent seizure disorder, febrile seizure, alcohol withdrawal, stimulants, meningitis, encephalitis, intercranial hemorrhage, intracranial tumor, stroke, eclampsia, thyrotoxicosis, hypocalcemia, hyponatremia, hypernatremia, hypomagnesemia, psychogenic, this is not meant to be an all-inclusive list. Differential Altered Mental Status: Hypoglycemia, DKA, hypercapnia, ETOH, overdose, CO poisoning, trauma, myxedema coma, HTN encephalopathy, infection, encephalitis, psychosis, intercranial hemorrhage, hepatic encephalopathy, meningitis, CVA, this is not meant to be an all-inclusive list Medical Decision Making - Medical Decision Making 43 male to ER for evaluation of seizure-like mental status. Patient has no significant findings here in the ER no recurrent symptoms here in the ER feels well can be discharged home well-known to this emergency department Disposition Clinical Impression: Alcoholic intoxication, Generalized seizure Disposition: HOME SELF-CARE Condition: Fair Instructions (If sedation given, give patient instructions): Seizure/Epilepsy Discharge Instructions & Follow-Up, Alcohol Intoxication (ED), Recurrent Seizures in Adults (ED) Is patient prescribed a controlled substance at d/c from ED?: No Referrals: Luis Cho MD [Primary Care Provider] - 1-2 days Time of Disposition: 01:00
[2024-01-31 04:55] VITALS: BP 106/76; PULSE 90
== END 2024-01-31 04:20 | disposition home or self-care (01) ==
LOC: EC 22:00
DX: G40.409 Other generalized epilepsy and epileptic syndromes, not intractable, without status epilepticus (principal); F10.129 Alcohol abuse with intoxication, unspecified; R41.82 Altered mental status, unspecified
CPT/HCPCS: 99285

== ENCOUNTER 2024-02-09 03:35 | Emergency (ER) | payer OTHER ==
[2024-02-09] MEDS: SODIUM CHLORIDE 0.9% 1,000 ML IV ONE (04:17)
--- NOTE | 2024-02-09 04:26 | ED ---
General Adult HPI - General Chief complaint: Dizziness Stated complaint: ETOH gout Time Seen by Provider: 02/09/24 03:50 Source: patient, EMS Mode of arrival: EMS Limitations: no limitations - History of Present Illness Initial comments: This patient is 43-year-old man brought by ambulance to evaluation for complaint of dizziness. Patient admits to alcohol use but states the symptoms were present today them for drinking. Patient denies fall or head injury. No chest pain, dyspnea, diaphoresis. -: hour(s) Severity scale (1-10): 0 Consistency: constant Improves with: none Worsens with: movement Associated Symptoms: denies other symptoms Treatments Prior to Arrival: none - Related Data Home Medications Medication Instructions Recorded Confirmed Acetaminophen Tab [Tylenol] 650 mg PO DIRECTED PRN 02/21/24 02/21/24 Thiamine [Vitamin B-1] 100 mg PO DIRECTED 02/21/24 02/21/24 amLODIPine [Norvasc] 5 mg PO DIRECTED 02/21/24 02/21/24 Allergies Allergy/AdvReac Type Severity Reaction Status Date / Time No Known Allergies Allergy Verified 02/27/24 01:21 Review of Systems ROS Statement: Those systems with pertinent positive or pertinent negative responses have been documented in the HPI. ROS Other: All systems not noted in ROS Statement are negative. Constitutional: Denies: fever, chills Respiratory: Denies: cough, dyspnea Cardiovascular: Denies: chest pain, palpitations Gastrointestinal: Denies: abdominal pain, vomiting, diarrhea Genitourinary: Denies: dysuria, hematuria Musculoskeletal: Denies: back pain Skin: Denies: rash Neurological: Reports: other (Denies). Denies: headache, weakness, numbness Psychiatric: Denies: depression, suicidal thoughts Past Medical History Past Medical History: Hypertension, Pneumonia, Seizure Disorder Additional Past Medical History / Comment(s): ETOH History of Any Multi-Drug Resistant Organisms: None Reported Past Surgical History: Joint Replacement, Orthopedic Surgery Additional Past Surgical History / Comment(s): Right leg. surgery, left leg incision and drainage for spider bite, jaw surgery 2018 Past Anesthesia/Blood Transfusion Reactions: No Reported Reaction Past Psychological History: Anxiety Smoking Status: Never smoker Past Alcohol Use History: Abuse, Daily Past Drug Use History: None Reported - Past Family History Sister(s) Family Medical History: Diabetes Mellitus Mother Family Medical History: Diabetes Mellitus Additional Family Medical History / Comment(s): from sudhakar johnsons syndrome Father Family Medical History: Diabetes Mellitus, Myocardial Infarction ([place]) Additional Family Medical History / Comment(s): from dm complications General Exam General appearance: alert, in no apparent distress, appears intoxicated Head exam: Present: atraumatic, normocephalic, normal inspection Eye exam: Present: normal appearance, PERRL, EOMI, nystagmus. Absent: scleral icterus, conjunctival injection Neck exam: Present: normal inspection, full ROM. Absent: tenderness Respiratory exam: Present: normal lung sounds bilaterally. Absent: respiratory distress, wheezes, rales, rhonchi, stridor Cardiovascular Exam: Present: regular rate, normal rhythm, normal heart sounds. Absent: systolic murmur, diastolic murmur, rubs, gallop GI/Abdominal exam: Present: soft. Absent: distended, tenderness, guarding, rebound, rigid, mass Extremities exam: Present: normal inspection, normal capillary refill. Absent: pedal edema, calf tenderness Back exam: Present: normal inspection. Absent: CVA tenderness (R), CVA tenderness (L), vertebral tenderness Neurological exam: Present: alert, oriented X3, CN II-XII intact. Absent: motor sensory deficit Skin exam: Present: warm, dry, intact, normal color. Absent: rash Course Vital Signs 02/09/24 02/09/24 03:44 08:43 Temperature 98.0 F 98.3 F Pulse Rate 102 H 79 Respiratory 19 18 Rate Blood Pressure 131/84 145/87 O2 Sat by Pulse 96 98 Oximetry EKG Findings - EKG Results: EKG: interpreted by ERMD, sinus rhythm, normal axis, normal QRS, normal ST/T, no acute changes EKG shows: tachycardia (Rate 102 bpm) Medical Decision Making - Medical Decision Making Was pt. sent in by a medical professional or institution (, PA, [employer], urgent care, hospital, or senior care...) When possible be specific @ -[No] Did you speak to anyone other than the patient for history (EMS, parent, family, police, friend...)? What history was obtained from this source @ -[No] Did you review nursing and triage notes (agree or disagree)? Why? @ -[I reviewed and agree with nursing and triage notes] Were old charts reviewed (outside hosp., previous admission, EMS record, old EKG, old radiological studies, urgent care reports/EKG's, senior care records)? Report findings @ -[No old charts were reviewed] Differential Diagnosis (chest pain, altered mental status, abdominal pain women, abdominal pain men, vaginal bleeding, weakness, fever, dyspnea, syncope, headache, dizziness, GI bleed, back pain, seizure, CVA, palpatations, mental health, musculoskeletal)? @ -[Differential Dizziness: Benign paroxysmal positional Vertigo, Menieres disease, otitis media, acoustic neuroma, vertebrobasilar insufficiency, cerebellar stroke, encephalitis, hypovolemic, arrhythmia, coronary artery syndrome, anemia, this is not meant to be an all-inclusive list EKG interpreted by me (3pts min.). @ -[I interpreted as above] X-rays interpreted by me (1pt min.). @ -[None done] CT interpreted by me (1pt min.). @ -[None done] U/S interpreted by me (1pt. min.). @ -[None done] What testing was considered but not performed or refused? (CT, X-rays, U/S, labs)? Why? @ -[None] What meds were considered but not given or refused? Why? @ -[None] Did you discuss the management of the patient with other professionals (professionals i.e. , PA, [employer], lab, RT, psych nurse, high school social science teacher, vice president supply chain, teacher, safety and security officer, piano case and bench assembler)? Give summary @ -[No] Was smoking cessation discussed for >3mins.? @ -[No] Was critical care preformed (if so, how long)? @ -[No] Were there social determinants of health that impacted care today? How? (Homeles sness, low income, unemployed, alcoholism, drug addiction, transportation, low edu. Level, literacy, decrease access to med. care, fpc, rehab)? @ -[No] Was there de-escalation of care discussed even if they declined (Discuss DNR or withdrawal of care, Hospice)? DNR status @ -[No] What co-morbidities impacted this encounter? (DM, HTN, Smoking, COPD, CAD, Cancer, CVA, ARF, Chemo, Hep., AIDS, mental health diagnosis, sleep apnea, morbid obesity)? @ -[Chronic alcohol use Was patient admitted / discharged? Hospital course, mention meds given and route, prescriptions, significant lab abnormalities, going to OR and other pertinent info. @ -[Patient is 43-year-old man here to have evaluation of dizziness. His initial workup is negative. Physical exam is within normal limits other than mild intoxication. Recommended cessation of alcohol use, but patient not receptive at this point. Undiagnosed new problem with uncertain prognosis? @ -[No] Drug Therapy requiring intensive monitoring for toxicity (Heparin, Nitro, Insulin, Cardizem)? @ -[No] Were any procedures done? @ -[No] Diagnosis/symptom? @ -[Dizziness Acute intoxication Acute, or Chronic, or Acute on Chronic? @ -[Acute Uncomplicated (without systemic symptoms) or Complicated (systemic symptoms)? @ -[Uncomplicated Side effects of treatment? @ -[No] Exacerbation, Progression, or Severe Exacerbation? @ -[No] Poses a threat to life or bodily function? How? (Chest pain, [place], [place], pneumonia, PE, COPD, DKA, ARF, appy, cholecystitis, CVA, Diverticulitis, Homicidal, Suicidal, threat to staff... and all critical care pts) @ -[No] - Lab Data Result diagrams: 02/09/24 04:22 02/09/24 04:22 Lab Results 02/09/24 02/09/24 Range/Units 04:22 04:22 WBC 5.9 (3.8-10.6) k/uL RBC 3.90 L (4.30-5.90) m/uL Hgb 11.1 L (13.0-17.5) gm/dL Hct 35.3 L (39.0-53.0) % MCV 90.6 (80.0-100.0) fL MCH 28.6 (25.0-35.0) pg MCHC 31.5 (31.0-37.0) g/dL RDW 17.0 H (11.5-15.5) % Plt Count 163 (150-450) k/uL MPV 8.6 Neutrophils % (Manual) 57 % Lymphocytes % (Manual) 35 % Monocytes % (Manual) 7 % Eosinophils % (Manual) 1 % Neutrophils # (Manual) 3.36 (1.3-7.7) k/uL Lymphocytes # (Manual) 2.07 (1.0-4.8) k/uL Monocytes # (Manual) 0.41 (0-1.0) k/uL Eosinophils # (Manual) 0.06 (0-0.7) k/uL Nucleated RBCs 0 (0-0) /100 WBC Manual Slide Review Performed Anisocytosis Slight Target Cells Present Sodium 136 L (137-145) mmol/L Potassium 3.6 (3.5-5.1) mmol/L Chloride 103 (98-107) mmol/L Carbon Dioxide 21 L (22-30) mmol/L Anion Gap 12 mmol/L BUN 6 L (9-20) mg/dL Creatinine 0.58 L (0.66-1.25) mg/dL Est GFR (CKD-EPI)AfAm >90 (>60 ml/min/1.73 sqM) Est GFR (CKD-EPI)NonAf >90 (>60 ml/min/1.73 sqM) Glucose 94 (74-99) mg/dL Calcium 8.3 L (8.4-10.2) mg/dL Magnesium 1.6 (1.6-2.3) mg/dL Total Bilirubin 0.7 (0.2-1.3) mg/dL AST 163 H (17-59) U/L ALT 83 H (4-49) U/L Alkaline Phosphatase 137 H (38-126) U/L Total Protein 7.9 (6.3-8.2) g/dL Albumin 3.9 (3.5-5.0) g/dL Disposition Clinical Impression: Dizziness Disposition: HOME SELF-CARE Condition: Good Instructions (If sedation given, give patient instructions): Dizziness (ED) Is patient prescribed a controlled substance at d/c from ED?: No Referrals: Luis Cho MD [Primary Care Provider] - 1-2 days
[2024-02-09 04:40] LABS: Anisocytosis Slight; HCT 35.3 % (39.0-53.0); HGB 11.1 gm/dL (13.0-17.5); MCH 28.6 pg (25.0-35.0); MCHC 31.5 g/dL (31.0-37.0); MCV 90.6 fL (80.0-100.0); Mean Platelet Volume 8.6; Platelet Count 163 k/uL (150-450); WBC 5.9 k/uL (3.8-10.6)
[2024-02-09 04:50] LABS: ALT 83 U/L (4-49); AST 163 U/L (17-59); African American GFR (CKD) >90 (>60 ml/min/1.73 sqM); Albumin 3.9 g/dL (3.5-5.0); Alkaline Phosphatase 137 U/L (38-126); Anion Gap 12 mmol/L; Blood Urea Nitrogen 6 mg/dL (9-20); Calcium 8.3 mg/dL (8.4-10.2); Carbon Dioxide 21 mmol/L (22-30); Chloride 103 mmol/L (98-107); Glucose 94 mg/dL (74-99); Magnesium 1.6 mg/dL (1.6-2.3); Non-African American GFR(CKD) >90 (>60 ml/min/1.73 sqM); Potassium 3.6 mmol/L (3.5-5.1); Sodium 136 mmol/L (137-145); Total Bilirubin 0.7 mg/dL (0.2-1.3); Total Protein 7.9 g/dL (6.3-8.2)
[2024-02-09 06:27] LABS: Eosinophils # (M) 0.06 k/uL (0-0.7); Lymphocytes # (M) 2.07 k/uL (1.0-4.8); Monocytes # (M) 0.41 k/uL (0-1.0); Neutrophils # (M) 3.36 k/uL (1.3-7.7); Neutrophils % (M) 57 %; Nucleated Red Blood Cells 0 /100 WBC (0-0); Target Cells Present; Total Cells Counted 100
[2024-02-09] MEDS: LORazepam 2 MG/ML INJ IV STA (07:24)
[2024-02-09 09:15] VITALS: BP 145/87; PULSE 79; RESP 18; TEMP 98.3
== END 2024-02-09 09:05 | disposition home or self-care (01) ==
LOC: EC 03:35
DX: R42 Dizziness and giddiness (principal)
CPT/HCPCS: 36415; 80053; 83735; 85025; 93005; 99284

== ENCOUNTER 2024-02-10 09:47 | Observation (INO) | payer OTHER ==
--- NOTE | 2024-02-10 11:09 | ED ---
Alcohol HPI - General Chief Complaint: Alcohol Stated Complaint: ETOH Time Seen by Provider: 02/10/24 09:50 Source: patient, EMS, RN notes reviewed, old records reviewed Mode of arrival: EMS Limitations: no limitations - History of Present Illness Initial Comments: 43-year-old male presents emergency department via EMS for evaluation of alcohol intoxication. Patient was seen here yesterday for similar complaints patient reportedly found on the bus sleeping in which PD were called and sent here for evaluation patient has no complaints himself. Patient does admit to drinking large amounts of alcohol which is a chronic issue for this patient. - Related Data Home Medications Medication Instructions Recorded Confirmed No Known Home Medications 02/10/24 02/10/24 Allergies Allergy/AdvReac Type Severity Reaction Status Date / Time No Known Allergies Allergy Verified 02/10/24 12:02 Review of Systems ROS Statement: Those systems with pertinent positive or pertinent negative responses have been documented in the HPI. ROS Other: All systems not noted in ROS Statement are negative. Past Medical History Past Medical History: Hypertension, Pneumonia, Seizure Disorder Additional Past Medical History / Comment(s): ETOH History of Any Multi-Drug Resistant Organisms: None Reported Past Surgical History: Joint Replacement, Orthopedic Surgery Additional Past Surgical History / Comment(s): Right leg. surgery, left leg incision and drainage for spider bite, jaw surgery 2018 Past Anesthesia/Blood Transfusion Reactions: No Reported Reaction Past Psychological History: Anxiety Smoking Status: Never smoker Past Alcohol Use History: Abuse, Daily Past Drug Use History: None Reported - Past Family History Sister(s) Family Medical History: Diabetes Mellitus Mother Family Medical History: Diabetes Mellitus Additional Family Medical History / Comment(s): from sudhakar johnsons syndrome Father Family Medical History: Diabetes Mellitus, Myocardial Infarction ([place]) Additional Family Medical History / Comment(s): from dm complications General Exam Limitations: no limitations General appearance: alert, in no apparent distress Head exam: Present: atraumatic, normocephalic, normal inspection ENT exam: Present: normal exam, mucous membranes moist Neck exam: Present: normal inspection, full ROM. Absent: tenderness, meningismus, lymphadenopathy Respiratory exam: Present: normal lung sounds bilaterally. Absent: respiratory distress, wheezes, rales, rhonchi, stridor Cardiovascular Exam: Present: regular rate, normal rhythm, normal heart sounds. Absent: systolic murmur, diastolic murmur, rubs, gallop, clicks GI/Abdominal exam: Present: soft, normal bowel sounds. Absent: distended, tenderness, guarding, rebound, rigid Neurological exam: Present: alert Skin exam: Present: warm, dry, intact, normal color. Absent: rash Course Vital Signs 02/10/24 02/10/24 02/10/24 10:31 11:50 13:52 Temperature Pulse Rate 84 76 79 Respiratory 14 16 14 Rate Blood Pressure 130/88 121/85 119/90 O2 Sat by Pulse 95 97 99 Oximetry 02/10/24 02/10/24 02/10/24 15:00 15:51 17:00 Temperature 97.8 F Pulse Rate 78 78 84 Respiratory 16 13 14 Rate Blood Pressure 114/80 120/91 131/87 O2 Sat by Pulse 96 97 96 Oximetry 02/10/24 02/10/24 02/10/24 18:05 19:45 21:00 Temperature Pulse Rate 96 92 90 Respiratory 14 17 16 Rate Blood Pressure 116/87 130/99 127/80 O2 Sat by Pulse 95 96 96 Oximetry 02/10/24 02/10/24 02/11/24 22:00 23:30 04:24 Temperature Pulse Rate 92 99 92 Respiratory 17 17 23 Rate Blood Pressure 122/90 102/85 141/95 O2 Sat by Pulse 96 95 99 Oximetry 02/11/24 02/11/24 02/11/24 05:49 07:18 10:00 Temperature 98.0 F Pulse Rate 87 77 90 Respiratory 18 16 18 Rate Blood Pressure 145/90 149/97 127/96 O2 Sat by Pulse 98 98 98 Oximetry Medical Decision Making - Medical Decision Making Was pt. sent in by a medical professional or institution (, PA, [employer], urgent care, hospital, or [facility]...) When possible be specific @ -No Did you speak to anyone other than the patient for history (EMS, parent, family, police, friend...)? What history was obtained from this source @ -No Did you review nursing and triage notes (agree or disagree)? Why? @ -I reviewed and agree with nursing and triage notes Were old charts reviewed (outside hosp., previous admission, EMS record, old EKG, old radiological studies, urgent care reports/EKG's, [facility] records)? Report findings @ -Reviewed prior admissions, laboratory findings Differential Diagnosis (chest pain, altered mental status, abdominal pain women, abdominal pain men, vaginal bleeding, weakness, fever, dyspnea, syncope, headache, dizziness, GI bleed, back pain, seizure, CVA, palpatations, mental health, musculoskeletal)? @ -Alcohol intoxication , drug abuse EKG interpreted by me (3pts min.). @ -None X-rays interpreted by me (1pt min.). @ -None done CT interpreted by me (1pt min.). @ -None done U/S interpreted by me (1pt. min.). @ -None done What testing was considered but not performed or refused? (CT, X-rays, U/S, labs)? Why? @ -None What meds were considered but not given or refused? Why? @ -None Did you discuss the management of the patient with other professionals (professionals i.e. , PA, [employer], lab, RT, psych nurse, licensed master social worker, vice president of talent management, teacher, division officer weapons department, pillowcase folder)? Give summary @ -Dr. Cho for admission Was smoking cessation discussed for >3mins.? @ -No Was critical care preformed (if so, how long)? @ -No Were there social determinants of health that impacted care today? How? (Homelessness, low income, unemployed, alcoholism, drug addiction, transport ation, low edu. Level, literacy, decrease access to med. care, [facility], rehab)? @ -No Was there de-escalation of care discussed even if they declined (Discuss DNR or withdrawal of care, Hospice)? DNR status @ -No What co-morbidities impacted this encounter? (DM, HTN, Smoking, COPD, CAD, Cancer, CVA, ARF, Chemo, Hep., AIDS, mental health diagnosis, sleep apnea, morbid obesity)? @ -Alcohol abuse Was patient admitted / discharged? Hospital course, mention meds given and route, prescriptions, significant lab abnormalities, going to OR and other pertinent info. @ -Admitted patient is severely intoxicated, unsafe to go home at this time will be admitted for alcohol abuse, pending withdrawal Undiagnosed new problem with uncertain prognosis? @ -No Drug Therapy requiring intensive monitoring for toxicity (Heparin, Nitro, Insulin, Cardizem)? @ -No Were any procedures done? @ -No Diagnosis/symptom? @ -Alcohol intoxication Acute, or Chronic, or Acute on Chronic? @ -Acute Uncomplicated (without systemic symptoms) or Complicated (systemic symptoms)? @ -Complicated Side effects of treatment? @ -No Exacerbation, Progression, or Severe Exacerbation? @ -No Poses a threat to life or bodily function? How? (Chest pain, [place], [place], pneumonia, PE, COPD, DKA, ARF, appy, cholecystitis, CVA, Diverticulitis, Homicidal, Suicidal, threat to staff... and all critical care pts) @ -No - Lab Data Result diagrams: 02/10/24 13:09 02/10/24 15:26 Lab Results 02/10/24 02/10/24 Range/Units 13:09 15:26 WBC 2.8 L (3.8-10.6) k/uL RBC 4.34 (4.30-5.90) m/uL Hgb 12.6 L (13.0-17.5) gm/dL Hct 40.3 (39.0-53.0) % MCV 92.9 (80.0-100.0) fL MCH 29.1 (25.0-35.0) pg MCHC 31.3 (31.0-37.0) g/dL RDW 17.2 H (11.5-15.5) % Plt Count 180 (150-450) k/uL MPV 8.4 Neutrophils % (Manual) 36 % Lymphocytes % (Manual) 53 % Monocytes % (Manual) 10 % Eosinophils % (Manual) 1 % Neutrophils # (Manual) 1.01 L (1.3-7.7) k/uL Lymphocytes # (Manual) 1.48 (1.0-4.8) k/uL Monocytes # (Manual) 0.28 (0-1.0) k/uL Eosinophils # (Manual) 0.03 (0-0.7) k/uL Nucleated RBCs 0 (0-0) /100 WBC Manual Slide Review Performed Anisocytosis Slight Sodium 148 H (137-145) mmol/L Potassium 4.3 (3.5-5.1) mmol/L Chloride 112 H (98-107) mmol/L Carbon Dioxide 24 (22-30) mmol/L Anion Gap 12 mmol/L BUN 8 L (9-20) mg/dL Creatinine 0.61 L (0.66-1.25) mg/dL Est GFR (CKD-EPI)AfAm >90 (>60 ml/min/1.73 sqM) Est GFR (CKD-EPI)NonAf >90 (>60 ml/min/1.73 sqM) Glucose 74 (74-99) mg/dL Calcium 8.5 (8.4-10.2) mg/dL Magnesium 1.6 (1.6-2.3) mg/dL Total Bilirubin 0.6 (0.2-1.3) mg/dL AST 147 H (17-59) U/L ALT 77 H (4-49) U/L Alkaline Phosphatase 197 H (38-126) U/L Total Protein 8.0 (6.3-8.2) g/dL Albumin 3.8 (3.5-5.0) g/dL Lipase 130 (23-300) U/L Serum Alcohol 307 H* mg/dL Disposition Clinical Impression: Alcoholic intoxication Disposition: ADMITTED IP TO THIS HOSP
[2024-02-10 13:23] LABS: Anisocytosis Slight; HCT 40.3 % (39.0-53.0); HGB 12.6 gm/dL (13.0-17.5); MCH 29.1 pg (25.0-35.0); MCHC 31.3 g/dL (31.0-37.0); MCV 92.9 fL (80.0-100.0); Mean Platelet Volume 8.4; Platelet Count 180 k/uL (150-450); RBC 4.34 m/uL (4.30-5.90); RDW 17.2 % (11.5-15.5); WBC 2.8 k/uL (3.8-10.6)
[2024-02-10] MEDS: SODIUM CHLORIDE 0.9% 2,000 ML IV ONE (13:46)
[2024-02-10 14:27] LABS: Eosinophils # (M) 0.03 k/uL (0-0.7); Lymphocytes # (M) 1.48 k/uL (1.0-4.8); Monocytes # (M) 0.28 k/uL (0-1.0); Neutrophils # (M) 1.01 k/uL (1.3-7.7); Neutrophils % (M) 36 %; Nucleated Red Blood Cells 0 /100 WBC (0-0); Total Cells Counted 100
[2024-02-10 15:44] LABS: ALT 77 U/L (4-49); AST 147 U/L (17-59); African American GFR (CKD) >90 (>60 ml/min/1.73 sqM); Albumin 3.8 g/dL (3.5-5.0); Alkaline Phosphatase 197 U/L (38-126); Anion Gap 12 mmol/L; Blood Urea Nitrogen 8 mg/dL (9-20); Calcium 8.5 mg/dL (8.4-10.2); Carbon Dioxide 24 mmol/L (22-30); Chloride 112 mmol/L (98-107); Glucose 74 mg/dL (74-99); Lipase 130 U/L (23-300); Magnesium 1.6 mg/dL (1.6-2.3); Non-African American GFR(CKD) >90 (>60 ml/min/1.73 sqM); Potassium 4.3 mmol/L (3.5-5.1); Sodium 148 mmol/L (137-145); Total Bilirubin 0.6 mg/dL (0.2-1.3)
[2024-02-10 16:32] LABS: Alcohol 307 mg/dL
[2024-02-10] MEDS ORDERED: NALOXONE 0.4 MG/ML 1 ML VIAL IV PRN (17:07)
[2024-02-10] MEDS ORDERED: LORazepam 2 MG/ML INJ IV PRN ×2 (17:08)
[2024-02-10] MEDS: THIAMINE 100 MG/ML 2 ML VIAL IM STA (18:07)
[2024-02-10] MEDS: SODIUM CHLORIDE 0.9% 1,000 ML IV SCH (18:07)
--- NOTE | 2024-02-11 03:47 | HP ---
HISTORY AND PHYSICAL CHIEF COMPLAINT: Acute alcohol intoxication and coma. HISTORY OF PRESENT ILLNESS: This is another admission for this gentleman. He just left [facility] against medical advice 24 hours ago. Apparently, he was found unconscious on the ground and was brought in with acute alcohol intoxication once again. He does have a history of alcohol withdrawal seizures. Review of systems, past medical history, family history personal and social histories could not be obtained and are otherwise unremarkable. PHYSICAL EXAMINATION: VITAL SIGNS: Pulse is 125. Blood pressure is normal. HEENT: Head, ears, eyes, nose, mouth and throat seem to be normal as well as can be examined. CHEST: Clear. CARDIAC: Reveals sinus tachycardia. ABDOMEN: Soft and no masses or visceromegaly. EXTREMITIES: Normal. NEUROLOGICAL: He was comatose. DIAGNOSES: He was admitted to the hospital with diagnoses, 1. Acute alcohol poisoning. 2. Chronic alcoholism. 3. History of alcohol withdrawal seizures. PLAN: 1. Bedrest. 2. IV fluids. 3. CIWA protocol. 4. Seizure precautions. ILIR / EDUARDO: [id number] /
[2024-02-11] MEDS: THIAMINE 100 MG TAB PO SCH (08:14)
[2024-02-12] MEDS: LORazepam 2 MG/ML INJ IV PRN (00:44)
--- NOTE | 2024-02-12 06:18 | PN ---
PROGRESS NOTE CHIEF COMPLAINT: Acute alcohol intoxication and DTs. HISTORY OF PRESENT ILLNESS: This gentleman is still intoxicated. PHYSICAL EXAMINATION: VITAL SIGNS: Normal except for tachycardia. CHEST: Clear. CARDIAC: Normal. ABDOMEN: Soft, nontender. IMPRESSION: 1. Acute alcohol intoxication. 2. Delirium tremens. 3. History of seizure disorder. PLAN: Continue in the hospital on CIWA protocol. MMODL / IJN: [id number] /
[2024-02-12 08:59] VITALS: BP 158/102; PULSE 84; RESP 20; TEMP 99
[2024-02-12] MEDS ORDERED: ACETAMINOPHEN TAB 325 MG TAB PO PRN (10:09)
--- NOTE | 2024-02-12 10:32 | XR ---
EXAMINATION TYPE: XR chest 1V portable DATE OF EXAM: 02/12/2024 COMPARISON: NONE HISTORY: Shortness of breath TECHNIQUE: Single frontal view of the chest is obtained. FINDINGS: There is no focal air space opacity, pleural effusion, or pneumothorax seen. The cardiac silhouette size is within normal limits. Scoliotic curvature of the spine.. IMPRESSION: No acute process.
[2024-02-12 10:47] LABS: Anisocytosis Slight; Basophils % (A) 0 %; Eosinophils % (A) 1 %; HCT 39.4 % (39.0-53.0); Hypochromasia Slight; Lymphocytes # (A) 1.1 k/uL (1.0-4.8); Lymphocytes % (A) 30 %; MCHC 30.6 g/dL (31.0-37.0); MCV 94.8 fL (80.0-100.0); Mean Platelet Volume 10.7; Monocytes # (A) 0.4 k/uL (0-1.0); Monocytes % (A) 10 %; Neutrophils # (A) 1.9 k/uL (1.3-7.7); Neutrophils % (A) 54 %; Platelet Count 128 k/uL (150-450); RBC 4.15 m/uL (4.30-5.90); RDW 16.7 % (11.5-15.5); WBC 3.6 k/uL (3.8-10.6)
[2024-02-12] MEDS: amLODIPine 10 MG TAB PO SCH (10:59)
[2024-02-12 11:00] LABS: ALT 58 U/L (4-49); AST 108 U/L (17-59); African American GFR (CKD) >90 (>60 ml/min/1.73 sqM); Albumin 3.2 g/dL (3.5-5.0); Albumin/Globulin Ratio 0.8; Alkaline Phosphatase 226 U/L (38-126); Anion Gap 6 mmol/L; Blood Urea Nitrogen <2 mg/dL (9-20); Calcium 8.5 mg/dL (8.4-10.2); Carbon Dioxide 24 mmol/L (22-30); Chloride 107 mmol/L (98-107); Globulin 3.9 g/dL; Glucose 125 mg/dL (74-99); Magnesium 1.4 mg/dL (1.6-2.3); Non-African American GFR(CKD) >90 (>60 ml/min/1.73 sqM); Potassium 3.7 mmol/L (3.5-5.1); Sodium 137 mmol/L (137-145); Total Bilirubin 0.6 mg/dL (0.2-1.3); Total Protein 7.1 g/dL (6.3-8.2)
[2024-02-12] MEDS: ACETAMINOPHEN TAB 325 MG TAB PO STA (11:00)
[2024-02-12] MEDS ORDERED: MAGNESIUM SULFATE-D5W PMX 1 GM in DEXTROSE/WATER 1 100ML.BAG IVPB SCH (13:45)
== END 2024-02-12 15:50 | disposition home or self-care (01) ==
LOC: EC 09:47 → INTOOBSV 17:08 → 4SSUR 17:08
PROVIDERS: ADMIT Family Medicine; ATTEND Family Medicine
DX: F10.229 Alcohol dependence with intoxication, unspecified (principal); F10.231 Alcohol dependence with withdrawal delirium; I10 Essential (primary) hypertension; F41.9 Anxiety disorder, unspecified; G40.909 Epilepsy, unspecified, not intractable, without status epilepticus; Y90.8 Blood alcohol level of 240 mg/100 ml or more
CPT/HCPCS: 96361 ×4; 96374; 96372; 99284; 36415; 80053 ×2; 83690; 83735 ×2; 85025 ×2; 80320; 71045; G0378 ×3; J2060; J3411

== ENCOUNTER 2024-02-13 16:48 | Observation (INO) | payer OTHER ==
--- NOTE | 2024-02-13 17:03 | ED ---
Alcohol HPI - General Stated Complaint: ETOH Time Seen by Provider: 02/13/24 17:01 Source: RN notes reviewed, old records reviewed Mode of arrival: ambulatory Limitations: no limitations, altered mental status - History of Present Illness Initial Comments: This is a 43-year-old male well-known to this facility coming in for severe alcohol intoxication. 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) Previous Visits for Alcohol Intoxication?: Yes Recent Trauma: Yes Associated Symptoms: denies other symptoms, nausea, vomiting Treatments Prior to Arrival: none Chronic Alcohol Use: Yes - Related Data Previous Rx's Medication Instructions Recorded Acetaminophen Tab [Tylenol] 650 mg PO Q6HR PRN tab 02/12/24 Thiamine [Vitamin B-1] 100 mg PO DAILY #30 tab 02/12/24 amLODIPine [Norvasc] 5 mg PO DAILY #15 tab 02/12/24 Allergies Allergy/AdvReac Type Severity Reaction Status Date / Time No Known Allergies Allergy Verified 02/13/24 17:42 Review of Systems ROS Statement: Those systems with pertinent positive or pertinent negative responses have been documented in the HPI. ROS Other: All systems not noted in ROS Statement are negative. Past Medical History Past Medical History: Hypertension, Pneumonia, Seizure Disorder Additional Past Medical History / Comment(s): ETOH History of Any Multi-Drug Resistant Organisms: None Reported Past Surgical History: Joint Replacement, Orthopedic Surgery Additional Past Surgical History / Comment(s): Right leg. surgery, left leg incision and drainage for spider bite, jaw surgery 2018 Past Anesthesia/Blood Transfusion Reactions: No Reported Reaction Past Psychological History: Anxiety Smoking Status: Never smoker Past Alcohol Use History: Abuse, Daily Past Drug Use History: None Reported - Past Family History Sister(s) Family Medical History: Diabetes Mellitus Mother Family Medical History: Diabetes Mellitus Additional Family Medical History / Comment(s): from sudhakar johnsons syndrome Father Family Medical History: Diabetes Mellitus, Myocardial Infarction ([place]) Additional Family Medical History / Comment(s): from dm complications General Exam General appearance: alert, in no apparent distress Head exam: Present: atraumatic, normocephalic, normal inspection Eye exam: Present: normal appearance, PERRL, EOMI. Absent: scleral icterus, conjunctival injection, periorbital swelling ENT exam: Present: normal exam, mucous membranes moist Neck exam: Present: normal inspection. Absent: tenderness, meningismus, lymphadenopathy Respiratory exam: Present: normal lung sounds bilaterally. Absent: respiratory distress, wheezes, rales, rhonchi, stridor Cardiovascular Exam: Present: regular rate, normal rhythm, normal heart sounds. Absent: systolic murmur, diastolic murmur, rubs, gallop, clicks GI/Abdominal exam: Present: soft, normal bowel sounds. Absent: distended, tenderness, guarding, rebound, rigid Extremities exam: Present: normal inspection, full ROM, normal capillary refill. Absent: tenderness, pedal edema, joint swelling, calf tenderness Back exam: Present: normal inspection Neurological exam: Present: alert, oriented X3, CN II-XII intact Psychiatric exam: Present: normal affect, normal mood Skin exam: Present: warm, dry, intact, normal color. Absent: rash Course Vital Signs 02/13/24 02/13/24 02/13/24 17:05 17:18 17:30 Temperature 96.8 F L Pulse Rate 89 91 92 Respiratory 15 18 15 Rate Blood Pressure 98/73 96/68 102/73 O2 Sat by Pulse 95 93 L 95 Oximetry 02/13/24 02/13/24 02/13/24 18:00 18:30 19:00 Temperature Pulse Rate 93 86 86 Respiratory 15 15 15 Rate Blood Pressure 92/61 98/71 101/72 O2 Sat by Pulse 95 95 96 Oximetry 02/13/24 02/13/24 02/13/24 19:30 20:00 20:30 Temperature Pulse Rate 82 97 92 Respiratory 15 25 H 23 Rate Blood Pressure 99/71 102/76 111/85 O2 Sat by Pulse 95 94 L 95 Oximetry 02/13/24 21:02 Temperature Pulse Rate 89 Respiratory 18 Rate Blood Pressure 127/95 O2 Sat by Pulse 94 L Oximetry - Reevaluation(s) Reevaluation #1: 02/13/24 20:50 Medical record is reviewed Reevaluation #2: 02/13/24 20:50 Patient symptoms are unchanged Reevaluation #3: 02/13/24 20:50 Patient informed of results and questions answered Reevaluation #4: Was pt. sent in by a medical professional or institution (, PA, ASSORTER [employer]UNDR[employer], urgent care, hospital, or senior living...) When possible be specific @ -no Did you speak to anyone other than the patient for history (EMS, parent, family, police, friend...)? What history was obtained from this source @ -no Did you review nursing and triage notes (agree or disagree)? Why? @ -agree Are old charts reviewed (outside hosp., previous admission, EMS record, old EKG, old radiological studies, urgent care reports/EKG's, senior living records)? Report findings @ -yes Differential Diagnosis (chest pain, altered mental status, abdominal pain women, abdominal pain men, vaginal bleeding, weakness, fever, dyspnea, syncope, hea dache, dizziness, GI bleed, back pain, seizure, CVA, palpatations, mental health, musculoskeletal)? @ -prior EKG interpreted by me (3pts min.). @ -no X-rays interpreted by me (1pt min.). @ -no CT interpreted by me (1pt min.). @ -no U/S interpreted by me (1pt. min.). @ -no What testing was considered but not performed or refused? (CT, X-rays, U/S, labs)? Why? @ -none What meds were considered but not given or refused? Why? @ -none Did you discuss the management of the patient with other professionals (professionals i.e. , PA, ASSORTER [employer]UNDRY, lab, RT, psych nurse, psychiatric social worker supervisor, clinic office assistant, teacher, collection officer, shoe parts caser)? Give summary @ -no Was smoking cessation discussed for >3mins.? @ -no Was critical care preformed (if so, how long)? @ -no Were there social determinants of health that impacted care today? How? (Homelessness, low income, unemployed, alcoholism, drug addiction, jefferson sportation, low edu. Level, literacy, decrease access to med. care, [facility], rehab)? @ -none Was there de-escalation of care discussed even if they declined (Discuss DNR or withdrawal of care, Hospice)? DNR status @ -no What co-morbidities impacted this encounter? (DM, HTN, Smoking, COPD, CAD, Cancer, CVA, ARF, Chemo, Hep., AIDS, mental health diagnosis, sleep apnea, morbid obesity)? @ -none Was patient admitted / discharged? Hospital course, mention meds given and route, prescriptions, significant lab abnormalities, going to OR and other pertinent info. @ - 43 male to the ER for evaluation of severe alcohol intoxication and is acutely intoxicated here in the ER. Patient will be admitted for observation Admitted Undiagnosed new problem with uncertain prognosis? @ -no Drug Therapy requiring intensive monitoring for toxicity (Heparin, Nitro, Insulin, Cardizem)? @ -no Were any procedures done? @ -no Diagnosis/symptom? @ -Alcohol intoxication Acute, or Chronic, or Acute on Chronic? @ -Acute Uncomplicated (without systemic symptoms) or Complicated (systemic symptoms)? @ -Complicated Side effects of treatment? @ -no Exacerbation, Progression, or Severe Exacerbation? @ -exacerbation Poses a threat to life or bodily function? How? (Chest pain, [place], [place], pneumonia, PE, COPD, DKA, ARF, appy, cholecystitis, CVA, Diverticulitis, Homicidal, Suicidal, threat to staff... and all critical care pts) @ -yes with significant alcohol intoxication Reevaluation #5: Differential Altered Mental Status: Hypoglycemia, DKA, hypercapnia, ETOH, overdose, CO poisoning, trauma, myxedema coma, HTN encephalopathy, infection, encephalitis, psychosis, intercranial hemor rhage, hepatic encephalopathy, meningitis, CVA, this is not meant to be an all- inclusive list - Consultations Consultation #1: Spoke with Dr. Cho who will admit this patient Medical Decision Making - Medical Decision Making 43 male to the ER for evaluation of severe alcohol intoxication and is acutely intoxicated here in the ER. Patient will be admitted for observation - Lab Data Result diagrams: 02/14/24 06:05 02/14/24 06:05 Lab Results 02/13/24 02/13/24 Range/Units 19:55 19:55 WBC 2.9 L (3.8-10.6) k/uL RBC 3.73 L (4.30-5.90) m/uL Hgb 10.8 L (13.0-17.5) gm/dL Hct 35.7 L (39.0-53.0) % MCV 95.7 (80.0-100.0) fL MCH 28.9 (25.0-35.0) pg MCHC 30.2 L (31.0-37.0) g/dL RDW 17.2 H (11.5-15.5) % Plt Count 112 L (150-450) k/uL MPV 8.7 Neutrophils % (Manual) 25 % Lymphocytes % (Manual) 61 % Monocytes % (Manual) 12 % Eosinophils % (Manual) 2 % Neutrophils # (Manual) 0.73 L (1.3-7.7) k/uL Lymphocytes # (Manual) 1.77 (1.0-4.8) k/uL Monocytes # (Manual) 0.35 (0-1.0) k/uL Eosinophils # (Manual) 0.06 (0-0.7) k/uL Nucleated RBCs 1 H (0-0) /100 WBC Manual Slide Review Performed Large Platelets Present Polychromasia Present Hypochromasia Slight Anisocytosis Slight Target Cells Present Sodium 143 (137-145) mmol/L Potassium 3.4 L (3.5-5.1) mmol/L Chloride 120 H (98-107) mmol/L Carbon Dioxide 15 L (22-30) mmol/L Anion Gap 8 mmol/L BUN 2 L (9-20) mg/dL Creatinine 0.42 L (0.66-1.25) mg/dL Est GFR (CKD-EPI)AfAm >90 (>60 ml/min/1.73 sqM) Est GFR (CKD-EPI)NonAf >90 (>60 ml/min/1.73 sqM) Glucose 70 L (74-99) mg/dL Calcium 5.8 L* (8.4-10.2) mg/dL Phosphorus 3.2 (2.5-4.5) mg/dL Magnesium 1.2 L (1.6-2.3) mg/dL Total Bilirubin 0.7 (0.2-1.3) mg/dL AST 74 H (17-59) U/L ALT 45 (4-49) U/L Alkaline Phosphatase 132 H (38-126) U/L Total Protein 5.8 L (6.3-8.2) g/dL Albumin 2.5 L (3.5-5.0) g/dL Lipase 114 (23-300) U/L Serum Alcohol 281 H* mg/dL Disposition Clinical Impression: Alcoholic intoxication Disposition: ADMITTED IP TO THIS [facility] Condition: Fair Is patient prescribed a controlled substance at d/c from ED?: No Time of Disposition: 20:50
[2024-02-13] MEDS: SODIUM CHLORIDE 0.9% 1,000 ML IV STA ×3 (19:20→19:48)
[2024-02-13] MEDS: SODIUM CHLORIDE 0.9% 500 ML 500 ML IV STA (19:20)
[2024-02-13 20:06] LABS: Anisocytosis Slight; HCT 35.7 % (39.0-53.0); HGB 10.8 gm/dL (13.0-17.5); Hypochromasia Slight; MCH 28.9 pg (25.0-35.0); MCHC 30.2 g/dL (31.0-37.0); MCV 95.7 fL (80.0-100.0); Mean Platelet Volume 8.7; Platelet Count 112 k/uL (150-450); RBC 3.73 m/uL (4.30-5.90); RDW 17.2 % (11.5-15.5); WBC 2.9 k/uL (3.8-10.6)
[2024-02-13 20:25] LABS: ALT 45 U/L (4-49); AST 74 U/L (17-59); African American GFR (CKD) >90 (>60 ml/min/1.73 sqM); Albumin 2.5 g/dL (3.5-5.0); Alkaline Phosphatase 132 U/L (38-126); Anion Gap 8 mmol/L; Blood Urea Nitrogen 2 mg/dL (9-20); Carbon Dioxide 15 mmol/L (22-30); Chloride 120 mmol/L (98-107); Glucose 70 mg/dL (74-99); Lipase 114 U/L (23-300); Magnesium 1.2 mg/dL (1.6-2.3); Non-African American GFR(CKD) >90 (>60 ml/min/1.73 sqM); Phosphorus 3.2 mg/dL (2.5-4.5); Potassium 3.4 mmol/L (3.5-5.1); Sodium 143 mmol/L (137-145); Total Bilirubin 0.7 mg/dL (0.2-1.3); Total Protein 5.8 g/dL (6.3-8.2)
[2024-02-13 20:34] LABS: Alcohol 281 mg/dL; Calcium 5.8 mg/dL (8.4-10.2)
[2024-02-13] MEDS ORDERED: LORazepam 2 MG/ML INJ IV PRN ×3 (20:47)
[2024-02-13] MEDS ORDERED: HYDROmorphone 1 MG/ML 1 ML SYRINGE IVP PRN (20:47)
[2024-02-13] MEDS ORDERED: NALOXONE 0.4 MG/ML 1 ML VIAL IV PRN (20:47)
[2024-02-13] MEDS ORDERED: ONDANSETRON 4 MG/2 ML VIAL IVP PRN (20:47)
[2024-02-13] MEDS ORDERED: LORazepam 0.5 MG TAB PO PRN (20:47)
[2024-02-13] MEDS ORDERED: LORazepam 1 MG TAB PO PRN (20:47)
[2024-02-13 21:01] LABS: Eosinophils # (M) 0.06 k/uL (0-0.7); Lymphocytes # (M) 1.77 k/uL (1.0-4.8); Monocytes # (M) 0.35 k/uL (0-1.0); Neutrophils # (M) 0.73 k/uL (1.3-7.7); Neutrophils % (M) 25 %; Nucleated Red Blood Cells 1 /100 WBC (0-0); Polychromasia Present; Total Cells Counted 100
[2024-02-13 21:04] LABS: Large Platelets Present; Target Cells Present
[2024-02-13] MEDS: CALCIUM GLUCONATE IN NACL 1 GM in SALINE 1 100ML.BAG IVPB ONE (22:29)
[2024-02-13] MEDS: LORazepam 1 MG TAB PO PRN (23:32)
[2024-02-13] MEDS: POTASSIUM BICARBONATE/CIT AC 20 MEQ TABLET.EFF PO ONE (23:33)
[2024-02-13] MEDS: MAGNESIUM OXIDE 400 MG TAB PO STA ×2 (23:33)
[2024-02-13] MEDS: THIAMINE 100 MG/ML 2 ML VIAL IM STA (23:33)
[2024-02-13] MEDS: MAGNESIUM SULFATE-D5W PMX 1 GM in DEXTROSE/WATER 1 100ML.BAG IVPB SCH (23:35)
[2024-02-13] MEDS: SODIUM CHLORIDE 0.9% 1,000 ML IV SCH (23:52)
[2024-02-14 06:48] LABS: Potassium 4.2 mmol/L (3.5-5.1)
[2024-02-14 06:49] LABS: ALT 60 U/L (4-49); AST 90 U/L (17-59); African American GFR (CKD) >90 (>60 ml/min/1.73 sqM); Albumin 3.6 g/dL (3.5-5.0); Alkaline Phosphatase 127 U/L (38-126); Anion Gap 12 mmol/L; Anisocytosis Slight; Basophils % (A) 1 %; Blood Urea Nitrogen 4 mg/dL (9-20); Calcium 8.4 mg/dL (8.4-10.2); Carbon Dioxide 21 mmol/L (22-30); Chloride 113 mmol/L (98-107); Eosinophils # (A) 0.1 k/uL (0-0.7); Eosinophils % (A) 2 %; Glucose 86 mg/dL (74-99); HCT 43.4 % (39.0-53.0); HGB 13.3 gm/dL (13.0-17.5); Hypochromasia Slight; Lymphocytes # (A) 1.4 k/uL (1.0-4.8); Lymphocytes % (A) 39 %; MCH 29.1 pg (25.0-35.0); MCHC 30.6 g/dL (31.0-37.0); Magnesium 1.9 mg/dL (1.6-2.3); Mean Platelet Volume 8.8; Monocytes # (A) 0.4 k/uL (0-1.0); Monocytes % (A) 12 %; Neutrophils # (A) 1.5 k/uL (1.3-7.7); Neutrophils % (A) 42 %; Non-African American GFR(CKD) >90 (>60 ml/min/1.73 sqM); Phosphorus 3.6 mg/dL (2.5-4.5); RBC 4.57 m/uL (4.30-5.90); Sodium 146 mmol/L (137-145); Total Bilirubin 0.7 mg/dL (0.2-1.3); Total Protein 7.6 g/dL (6.3-8.2); WBC 3.5 k/uL (3.8-10.6)
[2024-02-14 06:51] LABS: Platelet Count 184 k/uL (150-450)
[2024-02-14] MEDS: MAGNESIUM OXIDE 400 MG TAB PO SCH (09:59)
[2024-02-14] MEDS: THIAMINE 100 MG TAB PO SCH (09:59)
[2024-02-14] MEDS: LORazepam 1 MG TAB PO PRN (12:32)
[2024-02-14 13:16] VITALS: BP 128/83; PULSE 111; RESP 17; TEMP 99.2
[2024-02-14] MEDS ORDERED: LORazepam 1 MG/0.5 ML VIAL IV PRN ×3 (18:31)
[2024-02-15] MEDS ORDERED: THIAMINE 100 MG TAB PO SCH (09:00)
[2024-02-15] MEDS ORDERED: amLODIPine 5 MG TAB PO SCH (09:00)
--- NOTE | 2024-02-15 17:04 | HP ---
HISTORY AND PHYSICAL CHIEF COMPLAINT: Acute alcohol intoxication. HISTORY OF PRESENT ILLNESS: This gentleman has been in and out of the hospital several times in the last few weeks. He was in [facility] last week. He comes in acutely intoxicated. He has had history of seizures. REVIEW OF SYSTEMS: Not obtainable. Past medical history, family history, personal and social histories are not obtainable and assumed unchanged. PHYSICAL EXAMINATION: He has a sinus tachycardia. HEAD, EARS, EYES, NOSE, MOUTH, AND THROAT: Seem to be normal. CARDIAC: Normal. ABDOMEN: Soft and nontender. There are no masses or visceromegaly. There is no ascites. NEUROLOGICAL: He is comatose. IMPRESSION: 1. Acute alcohol intoxication. 2. Chronic alcoholism. 3. History of alcoholic related seizures. PLAN: 1. Bedrest. 2. [place] protocol. 3. Seizure precautions. ILIR / EDUARDO: [id number] /
--- NOTE | 2024-02-15 21:01 | DS ---
DISCHARGE SUMMARY CHIEF COMPLAINT: Acute alcohol intoxication. HISTORY OF PRESENT ILLNESS AND PHYSICAL EXAM: Details of this man's history and physical can be found in the initial workup. LABORATORY STUDIES: While he is in the hospital, he had laboratory studies, details of which can be found in the laboratory section of his chart. COURSE IN THE HOSPITAL: After admission, he was placed on bedrest once again with IV fluids and CIWA protocol. He improved, became more awake and alert and then signed himself out against medical advice. FINAL DIAGNOSES: 1. Acute alcohol intoxication. 2. Chronic alcoholism. 3. History of hypertension. 4. History of alcohol withdrawal seizures. OPERATIONS: None. CONSULTATION: None. He has improved. MMODL / IJN: [id number] /
--- NOTE | 2024-02-16 08:41 | PN ---
PROGRESS NOTE DATE OF SERVICE: 02/14/2024 CHIEF COMPLAINT: Acute alcohol intoxication. HISTORY OF PRESENT ILLNESS: This gentleman is still intoxicated and still in DTs. He is more awake and alert, however. PHYSICAL EXAMINATION: LUNGS: Breath sounds are heard bilaterally. CARDIAC: Normal. ABDOMEN: Soft. IMPRESSION: 1. Acute alcohol intoxication. 2. Chronic alcoholism. 3. History of alcohol withdrawal seizures. 4. Hypertension. PLAN: Continue with [facility] protocol. MMODL / LILLIEN: [id number] /
== END 2024-02-14 19:24 | disposition left against medical advice (07) ==
LOC: EC 16:48 → 5NMEDONC 20:49
PROVIDERS: ADMIT Family Medicine; ATTEND Family Medicine
DX: F10.229 Alcohol dependence with intoxication, unspecified (principal); F10.231 Alcohol dependence with withdrawal delirium; Y90.8 Blood alcohol level of 240 mg/100 ml or more; I10 Essential (primary) hypertension; Z79.899 Other long term (current) drug therapy; Z86.69 Personal history of other diseases of the nervous system and sense organs
CPT/HCPCS: 96376; 96365; 96366; 96372; 96361; 96375; 99285; 36415; 80053 ×2; 83690; 83735 ×2; 84100 ×2; 85025 ×2; 80320; G0378 ×2; J3411; J3360; J3475 ×2; J0613

== ENCOUNTER 2024-02-17 21:19 | Emergency (ER) | payer OTHER ==
[2024-02-17 21:37] VITALS: TEMP 97.8
--- NOTE | 2024-02-17 22:34 | ED ---
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(s) Previous Visits for Alcohol Intoxication?: Yes Recent Trauma: Yes Treatments Prior to Arrival: none Chronic Alcohol Use: Yes - Related Data Home Medications Medication Instructions Recorded Confirmed Acetaminophen Tab [Tylenol] 650 mg PO DIRECTED PRN 02/21/24 02/21/24 Thiamine [Vitamin B-1] 100 mg PO DIRECTED 02/21/24 02/21/24 amLODIPine [Norvasc] 5 mg PO DIRECTED 02/21/24 02/21/24 Previous Rx's Medication Instructions Recorded Cephalexin [Keflex] 500 mg PO Q6HR 5 Days #20 cap 03/01/24 Allergies Allergy/AdvReac Type Severity Reaction Status Date / Time No Known Allergies Allergy Verified 02/28/24 21:37 Review of Systems ROS Statement: Those systems with pertinent positive or pertinent negative responses have been documented in the HPI. ROS Other: All systems not noted in ROS Statement are negative. Past Medical History Past Medical History: Hypertension, Pneumonia, Seizure Disorder Additional Past Medical History / Comment(s): ETOH History of Any Multi-Drug Resistant Organisms: None Reported Past Surgical History: Joint Replacement, Orthopedic Surgery Additional Past Surgical History / Comment(s): Right leg. surgery, left leg incision and drainage for spider bite, jaw surgery 2018 Past Anesthesia/Blood Transfusion Reactions: No Reported Reaction Past Psychological History: Anxiety Smoking Status: Never smoker Past Alcohol Use History: Abuse, Daily Past Drug Use History: None Reported - Past Family History Sister(s) Family Medical History: Diabetes Mellitus Mother Family Medical History: Diabetes Mellitus Additional Family Medical History / Comment(s): from sudhakar johnsons syndrome Father Family Medical History: Diabetes Mellitus, Myocardial Infarction ([place]) Additional Family Medical History / Comment(s): from dm complications General Exam Limitations: no limitations General appearance: alert, in no apparent distress, appears intoxicated, anxious Head exam: Present: atraumatic, normocephalic, normal inspection Eye exam: Present: normal appearance, PERRL, EOMI. Absent: scleral icterus, conjunctival injection, periorbital swelling ENT exam: Present: normal exam, mucous membranes moist Neck exam: Present: normal inspection. Absent: tenderness, meningismus, lymphadenopathy Respiratory exam: Present: normal lung sounds bilaterally. Absent: respiratory distress, wheezes, rales, rhonchi, stridor Cardiovascular Exam: Present: regular rate, normal rhythm, normal heart sounds. Absent: systolic murmur, diastolic murmur, rubs, gallop, clicks GI/Abdominal exam: Present: soft, normal bowel sounds. Absent: distended, tenderness, guarding, rebound, rigid Extremities exam: Present: normal inspection, full ROM, normal capillary refill. Absent: tenderness, pedal edema, joint swelling, calf tenderness Back exam: Present: normal inspection Neurological exam: Present: alert, oriented X3, CN II-XII intact Psychiatric exam: Present: normal affect, normal mood Skin exam: Present: warm, dry, intact, normal color. Absent: rash Course Vital Signs 02/17/24 02/18/24 21:33 07:07 Temperature 97.8 F Pulse Rate 104 H 112 H Respiratory 20 18 Rate Blood Pressure 132/88 104/65 O2 Sat by Pulse 100 97 Oximetry - Reevaluation(s) Reevaluation #1: 02/17/24 23:09 QN [address] me Dr. Choi 02/17/24 23:15 Records reviewed Reevaluation #2: 02/17/24 23:15 Reevaluation #3: Patient informed of results questions answered Reevaluation #4: Was pt. sent in by a medical professional or institution (, PA, WIND COMMISSIONING TECHNICIAN, urgent care, hospital, or residential...) When possible be specific @ -no Did you speak to anyone other than the patient for history (EMS, parent, family, police, friend...)? What history was obtained from this source @ -no Did you review nursing and triage notes (agree or disagree)? Why? @ -agree Are old charts reviewed (outside hosp., previous admission, EMS record, old EKG, old radiological studies, urgent care reports/EKG's, residential records)? Report findings @ -yes Differential Diagnosis (chest pain, altered mental status, abdominal pain women, abdominal pain men, vaginal bleeding, weakness, fever, dyspnea, syncope, headache, dizziness, GI bleed, back pain, seizure, CVA, palpatations, mental health, musculoskeletal)? @ -prior EKG interpreted by me (3pts min.). @ -no X-rays interpreted by me (1pt min.). @ -no CT interpreted by me (1pt min.). @ -no U/S interpreted by me (1pt. min.). @ -no What testing was considered but not performed or refused? (CT, X-rays, U/S, labs)? Why? @ -none What meds were considered but not given or refused? Why? @ -none Did you discuss the management of the patient with other professionals (professionals i.e. , PA, WIND COMMISSIONING TECHNICIAN, lab, RT, psych nurse, social work instructor, erp analyst, teacher, chemistry technical officer, returned case inspector)? Give summary @ -no Was smoking cessation discussed for >3mins.? @ -no Was critical care preformed (if so, how long)? @ -no Were there social determinants of health that impacted care today? How? (Homelessness, low income, unemployed, alcoholism, drug addiction, transportation, low edu. Level, literacy, decrease access to med. care, shelter, rehab)? @ -none Was there de-escalation of care discussed even if they declined (Discuss DNR or withdrawal of care, Hospice)? DNR status @ -no What co-morbidities impacted this encounter? (DM, HTN, Smoking, COPD, CAD, Cancer, CVA, ARF, Chemo, Hep., AIDS, mental health diagnosis, sleep apnea, morbid obesity)? @ -none Was patient admitted / discharged? Hospital course, mention meds given and route, prescriptions, significant lab abnormalities, going to OR and other pertinent info. @ -43 male to ER for evaluation of alcohol intoxication. Patient currently awake alert sober able to ambulate and can be discharged home Discharge Undiagnosed new problem with uncertain prognosis? @ -no Drug Therapy requiring intensive monitoring for toxicity (Heparin, Nitro, Insulin, Cardizem)? @ -no Were any procedures done? @ -no Diagnosis/symptom? @ -Alcohol intoxication Acute, or Chronic, or Acute on Chronic? @ -Acute Uncomplicated (without systemic symptoms) or Complicated (systemic symptoms)? @ -Complicated Side effects of treatment? @ -no Exacerbation, Progression, or Severe Exacerbation? @ -exacerbation Poses a threat to life or bodily function? How? (Chest pain, [place], [place], pneumonia, PE, COPD, DKA, ARF, appy, cholecystitis, CVA, Diverticulitis, Homicidal, Suicidal, threat to staff... and all critical care pts) @ -yes with significant intoxication Reevaluation #5: Differential Altered Mental Status: Hypoglycemia, DKA, hypercapnia, ETOH, overdose, CO poisoning, trauma, myxedema coma, HTN encephalopathy, infection, encephalitis, psychosis, intercranial hemorrhage, hepatic encephalopathy, meningitis, CVA, this is not meant to be an all-inclusive list Medical Decision Making - Medical Decision Making 43 male well-known to this emergency department for alcohol intoxication. Patient is allowed to sleep for the night and can be discharged home Disposition Clinical Impression: Alcoholic intoxication Disposition: HOME SELF-CARE Condition: Undetermined Instructions (If sedation given, give patient instructions): Alcohol Intoxication (ED) Is patient prescribed a controlled substance at d/c from ED?: No Referrals: Luis Cho MD [Primary Care Provider] - 1-2 days Time of Disposition: 07:00
[2024-02-18 07:24] VITALS: BP 104/65; PULSE 112; RESP 18
== END 2024-02-18 07:09 | disposition home or self-care (01) ==
LOC: EC 21:19
DX: F10.129 Alcohol abuse with intoxication, unspecified (principal)
CPT/HCPCS: 99284

== ENCOUNTER 2024-02-21 15:10 | Observation (INO) | payer OTHER ==
[2024-02-21] MEDS ORDERED: LORazepam 2 MG/ML INJ IV PRN ×3 (15:52)
--- NOTE | 2024-02-21 15:52 | ED ---
General Adult HPI - General Chief complaint: Weakness Stated complaint: ETOH Time Seen by Provider: 02/21/24 15:20 Source: patient, EMS, RN notes reviewed, old records reviewed Mode of arrival: EMS Limitations: no limitations - History of Present Illness Initial comments: Patient is a 43-year-old male who presents emergency department complaining of alcohol intoxication. Was brought by EMS as patient is significantly toxic with alcohol. Has no other acute complaints at this time. Denies any other drug use. Presents for further evaluation. Endorses mild nausea. Is asking for food and drink. Does endorse drinking a large amount alcohol today. Patient frequents our emergency department for a long time. No falls. Acting appropria tely. History of hypertension, alcohol abuse, alcohol withdrawals. - Related Data Home Medications Medication Instructions Recorded Confirmed Acetaminophen Tab [Tylenol] 650 mg PO DIRECTED PRN 02/21/24 02/21/24 Thiamine [Vitamin B-1] 100 mg PO DIRECTED 02/21/24 02/21/24 amLODIPine [Norvasc] 5 mg PO DIRECTED 02/21/24 02/21/24 Allergies Allergy/AdvReac Type Severity Reaction Status Date / Time No Known Allergies Allergy Verified 02/21/24 17:21 Review of Systems ROS Statement: Those systems with pertinent positive or pertinent negative responses have been documented in the HPI. Review of Systems: CONST: Denies fever EYES: Denies blurry vision ENT: Denies nasal congestion C/V: Denies Chest pain RESP: Denies shortness of breath GI: Denies abdominal pain : Denies dysuria SKIN: Denies rash. MSK: Denies joint pain. NEURO: Denies headache ROS Other: All systems not noted in ROS Statement are negative. Past Medical History Past Medical History: Hypertension, Pneumonia, Seizure Disorder Additional Past Medical History / Comment(s): ETOH History of Any Multi-Drug Resistant Organisms: None Reported Past Surgical History: Joint Replacement, Orthopedic Surgery Additional Past Surgical History / Comment(s): Right leg. surgery, left leg incision and drainage for spider bite, jaw surgery 2018 Past Anesthesia/Blood Transfusion Reactions: No Reported Reaction Past Psychological History: Anxiety Smoking Status: Never smoker Past Alcohol Use History: Abuse, Daily Past Drug Use History: None Reported - Past Family History Sister(s) Family Medical History: Diabetes Mellitus Mother Family Medical History: Diabetes Mellitus Additional Family Medical History / Comment(s): from sudhakar johnsons syndrome Father Family Medical History: Diabetes Mellitus, Myocardial Infarction ([place]) Additional Family Medical History / Comment(s): from dm complications General Exam - General Exam Comments Initial Comments: General: Appears acutely intoxicated with alcohol. HEAD: Normal with no signs of head trauma. EYES: PERRLA, EOMI, conjunctiva normal, no discharge. ENT: Hearing grossly intact, normal oropharynx. RESPIRATORY: Clear breath sounds bilaterally. No wheezes, rales, or rhonchi. C/V: Regular rate and rhythm. S1 and S2 auscultated, no edema, peripheral pulses 2+ and intact throughout ABD: Abd is soft, nontender, nondistended EXT: Normal range of motion, no obvious deformity SKIN: No rashes or lesions observed on exposed skin. NEURO: Alert and oriented x 4. No focal deficits. Limitations: no limitations Course Vital Signs 02/21/24 02/21/24 02/21/24 15:11 15:22 21:04 Temperature 98.1 F 97.3 F L Pulse Rate 84 91 83 Respiratory 18 18 18 Rate Blood Pressure 139/95 139/95 146/86 O2 Sat by Pulse 96 99 97 Oximetry Medical Decision Making - Medical Decision Making Was pt. sent in by a medical professional or institution (, PA, EQUIP MAINT ENG, urgent care, hospital, or snf...) When possible be specific @ -No Did you speak to anyone other than the patient for history (EMS, parent, family, police, friend...)? What history was obtained from this source @ -No Did you review nursing and triage notes (agree or disagree)? Why? @ -I reviewed and agree with nursing and triage notes Were old charts reviewed (outside hosp., previous admission, EMS record, old EKG, old radiological studies, urgent care reports/EKG's, snf records)? Report findings @ -Reviewed charts from old admissions reviewed including charts from recent admission and visit from earlier this month. Also EKG from earlier this month. Differential Diagnosis (chest pain, altered mental status, abdominal pain women, abdominal pain men, vaginal bleeding, weakness, fever, dyspnea, syncope, headache, dizziness, GI bleed, back pain, seizure, CVA, palpatations, mental health, musculoskeletal)? @ -Alcohol intoxication, dehydration, MINA. This list is not all inclusive. EKG interpreted by me (3pts min.). @ -As above X-rays interpreted by me (1pt min.). @ -None done CT interpreted by me (1pt min.). @ -None done U/S interpreted by me (1pt. min.). @ -None done What testing was considered but not performed or refused? (CT, X-rays, U/S, labs)? Why? @ -None What meds were considered but not given or refused? Why? @ -None Did you discuss the management of the patient with other professionals (professionals i.e. , PA, EQUIP MAINT ENG, lab, RT, psych nurse, social work specialist, gamb cutter, teacher, senior credit officer, case technician)? Give summary @ -No Was smoking cessation discussed for >3mins.? @ -No Was critical care preformed (if so, how long)? @ -No Were there social determinants of health that impacted care today? How? (Homelessness, low income, unemployed, alcoholism, drug addiction, transportation, low edu. Level, literacy, decrease access to med. care, alf, rehab)? @ -No Was there de-escalation of care discussed even if they declined (Discuss DNR or withdrawal of care, Hospice)? DNR status @ -No What co-morbidities impacted this encounter? (DM, HTN, Smoking, COPD, CAD, Cancer, CVA, ARF, Chemo, Hep., AIDS, mental health diagnosis, sleep apnea, morbid obesity)? @ -History of alcohol abuse, alcohol withdrawals Was patient admitted / discharged? Hospital course, mention meds given and route, prescriptions, significant lab abnormalities, going to OR and other pertinent info. @ -Based on the patient's presentation and physical exam, presents to the emergency department complaining of alcohol intoxication. We will obtain basic labs, screening EKG and patient be given 1 L fluid bolus as well as IV Zofran. Patient was in agreement this plan. Vital signs are within acceptable limits. Patient placed on CIWA protocol. Currently no evidence of alcohol withdrawals at this time. EKG showed no signs of acute ischemia. Patient's laboratory studies remarkable for mild chronic anemia with a hemoglobin 11.5. This is stable. Patient acutely intoxicated with alcohol with a serum alcohol level of 393. At this time I updated the patient and he will be admitted for alcohol intoxication. He does have a history of alcohol withdrawals as well. CIWA protocol will be continued. Patient was in agreement this plan. Spoke with the admitting team, [facility] Dr. Amor who is covering Dr. Cho who acce pted the admission. Undiagnosed new problem with uncertain prognosis? @ -No Drug Therapy requiring intensive monitoring for toxicity (Heparin, Nitro, Insulin, Cardizem)? @ -No Were any procedures done? @ -No Diagnosis/symptom? @ -Alcohol intoxication Acute, or Chronic, or Acute on Chronic? @ -Acute Uncomplicated (without systemic symptoms) or Complicated (systemic symptoms)? @ -Complicated Side effects of treatment? @ -None Exacerbation, Progression, or Severe Exacerbation] @ -No Poses a threat to life or bodily function? @ -Yes - Lab Data Result diagrams: 02/21/24 16:08 02/21/24 16:08 Lab Results 02/21/24 02/21/24 Range/Units 16:08 16:08 WBC 9.7 (3.8-10.6) k/uL RBC 3.91 L (4.30-5.90) m/uL Hgb 11.5 L (13.0-17.5) gm/dL Hct 36.7 L (39.0-53.0) % MCV 93.7 (80.0-100.0) fL MCH 29.3 (25.0-35.0) pg MCHC 31.3 (31.0-37.0) g/dL RDW 16.7 H (11.5-15.5) % Plt Count 165 (150-450) k/uL MPV 9.5 Neutrophils % 83 % Lymphocytes % 12 % Monocytes % 4 % Eosinophils % 0 % Basophils % 0 % Neutrophils # 8.0 H (1.3-7.7) k/uL Lymphocytes # 1.2 (1.0-4.8) k/uL Monocytes # 0.4 (0-1.0) k/uL Eosinophils # 0.0 (0-0.7) k/uL Basophils # 0.0 (0-0.2) k/uL Anisocytosis Slight Sodium 139 (137-145) mmol/L Potassium 3.9 (3.5-5.1) mmol/L Chloride 106 (98-107) mmol/L Carbon Dioxide 22 (22-30) mmol/L Anion Gap 11 mmol/L BUN 9 (9-20) mg/dL Creatinine 0.63 L (0.66-1.25) mg/dL Est GFR (CKD-EPI)AfAm >90 (>60 ml/min/1.73 sqM) Est GFR (CKD-EPI)NonAf >90 (>60 ml/min/1.73 sqM) Glucose 134 H (74-99) mg/dL Calcium 8.8 (8.4-10.2) mg/dL Total Bilirubin 1.2 (0.2-1.3) mg/dL AST 80 H (17-59) U/L ALT 53 H (4-49) U/L Alkaline Phosphatase 146 H (38-126) U/L Total Protein 8.2 (6.3-8.2) g/dL Albumin 4.0 (3.5-5.0) g/dL Amylase 98 (30-110) U/L Lipase 147 (23-300) U/L Serum Alcohol 393 H* mg/dL - EKG Data -: EKG Interpreted by Me EKG Comments: 12-lead Electrocardiogram Interpretation Note EKG was reviewed and interpreted by myself. 12-lead ECG performed at 1551 is interpreted by me as revealing sinus tachycardia at a rate of 111 beats per minute. [place] normal. SD interval is 135 ms, QRS duration is 116 ms, QTc is 334 ms.. Isolated T wave inversion lead III. Seen on prior EKG from January 2024. There were no obvious acute ST or T wave abnormalities to suggest myocardial ischemia or injury. R wave progression across the precordium was satisfactory. By my interpretation this EKG is non-diagnostic for acute ischemia. Disposition Clinical Impression: Alcohol intoxication Disposition: ADMITTED IP TO THIS HOSP Condition: Stable Time of Disposition: 17:57
[2024-02-21] MEDS: SODIUM CHLORIDE 0.9% 1,000 ML IV STA (16:24)
[2024-02-21] MEDS: ONDANSETRON 4 MG/2 ML VIAL IVP STA (16:25)
[2024-02-21 16:57] LABS: Anisocytosis Slight; Basophils % (A) 0 %; Eosinophils % (A) 0 %; HCT 36.7 % (39.0-53.0); HGB 11.5 gm/dL (13.0-17.5); Lymphocytes # (A) 1.2 k/uL (1.0-4.8); Lymphocytes % (A) 12 %; MCH 29.3 pg (25.0-35.0); MCHC 31.3 g/dL (31.0-37.0); MCV 93.7 fL (80.0-100.0); Mean Platelet Volume 9.5; Monocytes # (A) 0.4 k/uL (0-1.0); Monocytes % (A) 4 %; Neutrophils % (A) 83 %; Platelet Count 165 k/uL (150-450); RBC 3.91 m/uL (4.30-5.90); RDW 16.7 % (11.5-15.5); WBC 9.7 k/uL (3.8-10.6)
[2024-02-21 17:19] LABS: ALT 53 U/L (4-49); AST 80 U/L (17-59); African American GFR (CKD) >90 (>60 ml/min/1.73 sqM); Alkaline Phosphatase 146 U/L (38-126); Amylase 98 U/L (30-110); Anion Gap 11 mmol/L; Blood Urea Nitrogen 9 mg/dL (9-20); Calcium 8.8 mg/dL (8.4-10.2); Carbon Dioxide 22 mmol/L (22-30); Chloride 106 mmol/L (98-107); Glucose 134 mg/dL (74-99); Lipase 147 U/L (23-300); Non-African American GFR(CKD) >90 (>60 ml/min/1.73 sqM); Potassium 3.9 mmol/L (3.5-5.1); Sodium 139 mmol/L (137-145); Total Bilirubin 1.2 mg/dL (0.2-1.3); Total Protein 8.2 g/dL (6.3-8.2)
[2024-02-21 17:37] LABS: Alcohol 393 mg/dL
[2024-02-21] MEDS ORDERED: ACETAMINOPHEN TAB 325 MG TAB PO PRN (17:55)
[2024-02-21] MEDS ORDERED: NALOXONE 0.4 MG/ML 1 ML VIAL IV PRN (17:55)
[2024-02-21] MEDS: THIAMINE 100 MG/ML 2 ML VIAL IM STA (20:48)
[2024-02-21] MEDS: SODIUM CHLORIDE 0.9% 1,000 ML IV SCH (20:51)
[2024-02-22] MEDS ORDERED: LORazepam 1 MG/0.5 ML VIAL IV PRN ×2 (05:53→08:11)
[2024-02-22] MEDS: LORazepam 1 MG/0.5 ML VIAL IV PRN (05:59)
[2024-02-22] MEDS: THIAMINE 100 MG TAB PO SCH (08:49)
[2024-02-22] MEDS: ONDANSETRON 4 MG/2 ML VIAL IVP PRN (08:52)
[2024-02-22 09:15] LABS: Basophils # (A) 0.03 X 10*3/uL (0.00-0.10); Basophils % (A) 0.4 %; Eosinophils # (A) 0 X 10*3/uL (0.04-0.35); Eosinophils % (A) 0 %; HCT 36.5 % (39.6-50.0); HGB 11.6 g/dL (13.0-17.0); Lymphocytes # (A) 1.81 X 10*3/uL (0.90-5.00); Lymphocytes % (A) 23.1 %; MCH 28.6 pg (27.0-32.0); MCHC 31.8 g/dL (32.0-37.0); MCV 90.1 FL (80.0-97.0); Mean Platelet Volume 10.5 FL (9.5-12.2); Monocytes # (A) 0.95 X 10*3/uL (0.20-1.00); Monocytes % (A) 12.1 %; NRBC Per 100 WBC 0 X 10*3/uL (0.00-0.01); Neutrophils # (A) 5.01 X 10*3/uL (1.80-7.70); Neutrophils % (A) 63.9 %; Platelet Count 175 X 10*3/uL (140-440); RBC 4.05 X 10*6/uL (4.40-5.60); RDW 17.5 % (11.5-14.5); WBC 7.84 X 10*3/uL (4.50-10.00)
[2024-02-22 09:27] LABS: BUN/Creat Ratio 12.57 Ratio (12.00-20.00); Blood Urea Nitrogen 8.8 mg/dL (9.0-27.0); Carbon Dioxide 21.8 mmol/L (21.6-31.8); Chloride 98 mmol/L (96-109); Glucose 75 mg/dL (70-110); Potassium 4.3 mmol/L (3.5-5.5); Sodium 142 mmol/L (135-145)
[2024-02-22] MEDS: amLODIPine 5 MG TAB PO SCH (15:18)
--- NOTE | 2024-02-22 17:47 | PN ---
PROGRESS NOTE DATE OF SERVICE: 02/22/2024 CHIEF COMPLAINT: Weakness and ETOH. HISTORY OF PRESENT ILLNESS: This is a 43-year-old gentleman with past medical history of significant medical issues, admitted with weakness and alcohol intoxication. Alcohol level was found to be 393. The patient has alcohol withdrawal, seizures history. No chest pain. No palpitations. No fever. PAST MEDICAL HISTORY: Reviewed include hypertension, pneumonia, seizure disorder, EtOH. HOME MEDICATIONS: Reviewed and Norvasc. Doses and rest of medications noted. ALLERGIES: None. FAMILY HISTORY: History of diabetes mellitus. SOCIAL HISTORY: Alcohol abuse daily. REVIEW OF SYSTEMS: A 14-point review is negative except as mentioned earlier. PHYSICAL EXAMINATION: VITAL SIGNS: Pulse is 94, blood pressure n, respirations 16. CHEST: Clear to auscultation. ABDOMEN: Soft. NERVOUS SYSTEM: Nonfocal. LABORATORY DATA: Reviewed. ASSESSMENT: 1. Acute alcohol intoxication and early delirium tremens. 2. Hypertension. 3. History of pneumonia. 4. History of seizure disorder. RECOMMENDATIONS AND DISCUSSION: This 43-year-old gentleman presented with multiple complex medical issues, we will monitor the patient closely, continue the Ativan protocol, otherwise I would also recommend seizure precautions. Otherwise, resume the home medication. Monitor blood pressure closely. Recommend alcohol cessation advise. Guarded prognosis. Further recommendations to follow. See orders for details. Dr. Cho will follow on Saturday. ILIR / LILLIEN: [id number] / MTDD
[2024-02-23 10:25] VITALS: RESP 16; TEMP 98.8
[2024-02-23 10:59] LABS: Basophils # (A) 0.03 X 10*3/uL (0.00-0.10); Basophils % (A) 0.4 %; Eosinophils # (A) 0.03 X 10*3/uL (0.04-0.35); Eosinophils % (A) 0.4 %; HCT 39.4 % (39.6-50.0); HGB 12.5 g/dL (13.0-17.0); Lymphocytes # (A) 3.02 X 10*3/uL (0.90-5.00); Lymphocytes % (A) 36.1 %; MCH 29.4 pg (27.0-32.0); MCHC 31.7 g/dL (32.0-37.0); MCV 92.7 FL (80.0-97.0); Mean Platelet Volume 11.2 FL (9.5-12.2); Monocytes # (A) 1.15 X 10*3/uL (0.20-1.00); Monocytes % (A) 13.8 %; NRBC Per 100 WBC 0 X 10*3/uL (0.00-0.01); Neutrophils # (A) 4.09 X 10*3/uL (1.80-7.70); Neutrophils % (A) 48.8 %; Platelet Count 164 X 10*3/uL (140-440); RBC 4.25 X 10*6/uL (4.40-5.60); RDW 16.9 % (11.5-14.5); WBC 8.36 X 10*3/uL (4.50-10.00)
[2024-02-23 11:26] LABS: ALT 59 U/L (10-49); AST 78 U/L (14-35); Albumin 3.9 g/dL (3.8-4.9); Alkaline Phosphatase 197 U/L (41-126); BUN/Creat Ratio 15.29 Ratio (12.00-20.00); Blood Urea Nitrogen 10.7 mg/dL (9.0-27.0); Calcium 9.6 mg/dL (8.7-10.3); Carbon Dioxide 27.7 mmol/L (21.6-31.8); Chloride 98 mmol/L (96-109); Globulin 3.9 g/dL (1.6-3.3); Glucose 95 mg/dL (70-110); Potassium 4.1 mmol/L (3.5-5.5); Sodium 137 mmol/L (135-145); Total Bilirubin 0.7 mg/dL (0.3-1.2); Total Protein 7.8 g/dL (6.2-8.2)
[2024-02-23 14:59] VITALS: BP 136/83; PULSE 103
--- NOTE | 2024-02-23 22:53 | DS ---
DISCHARGE SUMMARY FINAL DIAGNOSES: 1. Acute alcohol intoxication and early delirium tremens, improved. 2. Hypertension. 3. History of pneumonia. 4. History of seizure disorder. DISCHARGE DISPOSITION: The patient will be discharged in stable condition and guarded prognosis. HISTORY OF PRESENT ILLNESS: This is a 43-year-old gentleman admitted with acute alcohol intoxication and other features, treated symptomatically with CIWA protocol, improved significantly. Recommended alcohol rehab as an outpatient. Followup with Dr. Cho. PHYSICAL EXAMINATION: VITAL SIGNS: Stable. CARDIOVASCULAR: S1, S2. ABDOMEN: Soft. NERVOUS SYSTEM: No focal deficits. RECOMMENDATIONS: Please refer to the discharge reconciliation medications as mentioned earlier. Continue the home medications. Follow up with Dr. hCo in 2 to 3 days and outpatient alcohol rehab. MMBURKE / LILLIEN: [id number] /
== END 2024-02-23 15:43 | disposition home or self-care (01) ==
LOC: EC 15:10 → 6NMEDSUR 17:55
PROVIDERS: ADMIT Internal Medicine; ATTEND Internal Medicine
DX: F10.129 Alcohol abuse with intoxication, unspecified (principal); F10.131 Alcohol abuse with withdrawal delirium; I10 Essential (primary) hypertension; D64.9 Anemia, unspecified; G40.909 Epilepsy, unspecified, not intractable, without status epilepticus; Y90.8 Blood alcohol level of 240 mg/100 ml or more; Z79.899 Other long term (current) drug therapy; Z87.01 Personal history of pneumonia (recurrent)
CPT/HCPCS: 96376; 96361 ×4; 96375; 96372; 96374; 99285; 36415; 93005; 80053 ×2; 80048; 82150; 83690; 85025 ×3; 80320; G0378 ×3; J2060; J3411; J2405 ×2

== ENCOUNTER 2024-02-27 01:06 | Emergency (ER) | payer OTHER ==
[2024-02-27] MEDS ORDERED: KETOROLAC 15 MG/ML 1 ML VIAL IVP PRN (01:43)
--- NOTE | 2024-02-27 01:44 | ED ---
Alcohol HPI - General Chief Complaint: Alcohol Stated Complaint: ETOH Time Seen by Provider: 02/27/24 01:15 Source: patient, EMS Mode of arrival: EMS Limitations: no limitations - History of Present Illness Initial Comments: 43-year-old male with past medical history of seizure disorder, alcoholism who presents emergency department with alcohol intoxication and right leg pain. Patient has chronic history of both. States he has a history of gout and is concerned his gout is flaring. He denies any new injuries. No swelling. He has not taken anything for his pain at home. Patient continues to drink. He has no interest in cutting down. He denies any fevers. No other alleviating, precipitating modifying factors - Related Data Home Medications Medication Instructions Recorded Confirmed Acetaminophen Tab [Tylenol] 650 mg PO DIRECTED PRN 02/21/24 02/21/24 Thiamine [Vitamin B-1] 100 mg PO DIRECTED 02/21/24 02/21/24 amLODIPine [Norvasc] 5 mg PO DIRECTED 02/21/24 02/21/24 Previous Rx's Medication Instructions Recorded Cephalexin [Keflex] 500 mg PO Q6HR 5 Days #20 cap 03/01/24 Allergies Allergy/AdvReac Type Severity Reaction Status Date / Time No Known Allergies Allergy Verified 03/02/24 10:24 Review of Systems ROS Statement: Those systems with pertinent positive or pertinent negative responses have been documented in the HPI. ROS Other: All systems not noted in ROS Statement are negative. Past Medical History Past Medical History: Hypertension, Pneumonia, Seizure Disorder Additional Past Medical History / Comment(s): ETOH History of Any Multi-Drug Resistant Organisms: None Reported Past Surgical History: Joint Replacement, Orthopedic Surgery Additional Past Surgical History / Comment(s): Right leg. surgery, left leg incision and drainage for spider bite, jaw surgery 2018 Past Anesthesia/Blood Transfusion Reactions: No Reported Reaction Past Psychological History: Anxiety Smoking Status: Never smoker Past Alcohol Use History: Abuse, Daily Past Drug Use History: None Reported - Past Family History Sister(s) Family Medical History: Diabetes Mellitus Mother Family Medical History: Diabetes Mellitus Additional Family Medical History / Comment(s): from sudhakar johnsons syndrome Father Family Medical History: Diabetes Mellitus, Myocardial Infarction ([place]) Additional Family Medical History / Comment(s): from dm complications General Exam Limitations: no limitations General appearance: alert, in no apparent distress, appears intoxicated Head exam: Present: atraumatic, normocephalic, normal inspection Eye exam: Present: normal appearance, PERRL, EOMI. Absent: scleral icterus, conjunctival injection, periorbital swelling ENT exam: Present: normal exam, mucous membranes moist Neck exam: Present: normal inspection. Absent: tenderness, meningismus, lymphadenopathy Respiratory exam: Present: normal lung sounds bilaterally. Absent: respiratory distress, wheezes, rales, rhonchi, stridor Cardiovascular Exam: Present: regular rate, normal rhythm, normal heart sounds. Absent: systolic murmur, diastolic murmur, rubs, gallop, clicks GI/Abdominal exam: Present: soft, normal bowel sounds. Absent: distended, tenderness, guarding, rebound, rigid Extremities exam: Present: normal inspection, full ROM, normal capillary refill. Absent: tenderness, pedal edema, joint swelling, calf tenderness Back exam: Present: normal inspection Neurological exam: Present: alert, oriented X3, CN II-XII intact Psychiatric exam: Present: normal affect, normal mood Skin exam: Present: warm, dry, intact, normal color. Absent: rash Course Vital Signs 02/27/24 02/27/24 02/27/24 01:07 03:00 04:00 Temperature 97.9 F Pulse Rate 100 91 92 Respiratory 20 14 14 Rate Blood Pressure 111/97 113/83 108/79 O2 Sat by Pulse 96 96 96 Oximetry 02/27/24 05:06 Temperature Pulse Rate 95 Respiratory 18 Rate Blood Pressure 122/86 O2 Sat by Pulse 99 Oximetry Medical Decision Making - Medical Decision Making Was pt. sent in by a medical professional or institution (Dr. PA, STORE MANAGER, urgent care, hospital, or [place] [facility] facility...) When possible be specific @ -No Did you speak to anyone other than the patient for history (EMS, parent, family, police, friend...)? What history was obtained from this source @ -Spoke with EMS for the history as EMS does bring him in Did you review nursing and triage notes (agree or disagree)? Why? @ -I reviewed and agree with nursing and triage notes Were old charts reviewed (outside hosp., previous admission, EMS record, old EKG, old radiological studies, urgent care reports/EKG's, [place] [facility] facility records)? Report findings @ -No old charts were reviewed Differential Diagnosis (chest pain, altered mental status, abdominal pain women, abdominal pain men, vaginal bleeding, weakness, fever, dyspnea, syncope, headache, dizziness, GI bleed, back pain, seizure, CVA, palpatations, mental health, musculoskeletal)? @ -Differential Musculoskeletal Muscular strain, contusion, ligament sprain, fracture, arthritis, septic arthritis, bursitis, cellulitis, muscle spasm, nerve compression, DVT, arterial occlusion, herpes zoster, electrolyte abnormality, tumor.... This is not meant to be in all inclusive list EKG interpreted by me (3pts min.). @ -Not done X-rays interpreted by me (1pt min.). @ -None done CT interpreted by me (1pt min.). @ -None done U/S interpreted by me (1pt. min.). @ -None done What testing was considered but not performed or refused? (CT, X-rays, U/S, labs)? Why? @ -None What meds were considered but not given or refused? Why? @ -None Did you discuss the management of the patient with other professionals (professionals i.e. , PA, STORE MANAGER, lab, RT, psych nurse, social and political studies professor, senior information security consultant, teacher, global chief experience officer, rifle case repairer)? Give summary @ -No Was smoking cessation discussed for >3mins.? @ -No Was critical care preformed (if so, how long)? @ -No Were there social determinants of health that impacted care today? How? (Homelessness, low income, unemployed, alcoholism, drug addiction, transportatio n, low edu. Level, literacy, decrease access to med. care, group home, rehab)? @ -Homelessness, alcoholism Was there de-escalation of care discussed even if they declined (Discuss DNR or withdrawal of care, Hospice)? DNR status @ -No What co-morbidities impacted this encounter? (DM, HTN, Smoking, COPD, CAD, Cancer, CVA, ARF, Chemo, Hep., AIDS, mental health diagnosis, sleep apnea, morbid obesity)? @ -Alcoholism Was patient admitted / discharged? Hospital course, mention meds given and route, prescriptions, significant lab abnormalities, going to OR and other pertinent info. @ -Upon arrival patient was seen and evaluated in room 20. Thorough history and physical exam was performed. Patient is visibly intoxicated. He denies any injuries. Does admit to his chronic leg pain. Patient was given a dose of Toradol for his chronic pain. He is observed in the emergency department for several hours until he reaches clinical sobriety. Patient will be discharged at this time. Highly recommended that the patient's stop drinking alcohol as this can exacerbate his gout. Patient has no interest in quitting alcohol. Instructed that he should follow-up with his primary care doctor. Return for any new or worsening symptoms. Patient discharged in stable condition Undiagnosed new problem with uncertain prognosis? @ -No Drug Therapy requiring intensive monitoring for toxicity (Heparin, Nitro, Insulin, Cardizem)? @ -No Were any procedures done? @ -No Diagnosis/symptom? @ -Acute alcohol intoxication, chronic bilateral leg pain Acute, or Chronic, or Acute on Chronic? @ -Acute on chronic Uncomplicated (without systemic symptoms) or Complicated (systemic symptoms)? @ -Complicated Side effects of treatment? @ -No Exacerbation, Progression, or Severe Exacerbation? @ -No Poses a threat to life or bodily function? How? (Chest pain, [place], [place], pneumonia, PE, COPD, DKA, ARF, appy, cholecystitis, CVA, Diverticulitis, Homicidal, Suicidal, threat to staff... and all critical care pts) @ -No Disposition Clinical Impression: Alcoholic intoxication Disposition: HOME SELF-CARE Condition: Stable Instructions (If sedation given, give patient instructions): Alcohol Intoxication (ED) Is patient prescribed a controlled substance at d/c from ED?: No Referrals: Luis Cho MD [Primary Care Provider] - 1-2 days Time of Disposition: 01:44
[2024-02-27 01:56] VITALS: TEMP 97.9
[2024-02-27 05:46] VITALS: BP 122/86; PULSE 95; RESP 18
== END 2024-02-27 05:08 | disposition home or self-care (01) ==
LOC: EC 01:06
DX: F10.129 Alcohol abuse with intoxication, unspecified (principal); G89.29 Other chronic pain; M79.605 Pain in left leg; M79.604 Pain in right leg

== ENCOUNTER 2024-02-28 08:10 | Emergency (ER) | payer OTHER ==
--- NOTE | 2024-02-28 09:09 | ED ---
Alcohol HPI - General Chief Complaint: Alcohol Stated Complaint: ETOH Time Seen by Provider: 02/28/24 08:11 Source: patient, EMS, RN notes reviewed, old records reviewed Mode of arrival: EMS Limitations: no limitations - History of Present Illness Initial Comments: 43-year-old male unknown to the emergency department brought in via EMS with chief complaint of alcohol intoxication. Patient reportedly sleeping at a bus stop. Patient reportedly is homeless he denies being suicidal or homicidal he was just discharged from the facility here with no complaints. - Related Data Home Medications Medication Instructions Recorded Confirmed Acetaminophen Tab [Tylenol] 650 mg PO DIRECTED PRN 02/21/24 02/21/24 Thiamine [Vitamin B-1] 100 mg PO DIRECTED 02/21/24 02/21/24 amLODIPine [Norvasc] 5 mg PO DIRECTED 02/21/24 02/21/24 Allergies Allergy/AdvReac Type Severity Reaction Status Date / Time No Known Allergies Allergy Verified 02/28/24 08:12 Review of Systems ROS Statement: Those systems with pertinent positive or pertinent negative responses have been documented in the HPI. ROS Other: All systems not noted in ROS Statement are negative. Past Medical History Past Medical History: Hypertension, Pneumonia, Seizure Disorder Additional Past Medical History / Comment(s): ETOH History of Any Multi-Drug Resistant Organisms: None Reported Past Surgical History: Joint Replacement, Orthopedic Surgery Additional Past Surgical History / Comment(s): Right leg. surgery, left leg incision and drainage for spider bite, jaw surgery 2018 Past Anesthesia/Blood Transfusion Reactions: No Reported Reaction Past Psychological History: Anxiety Smoking Status: Never smoker Past Alcohol Use History: Abuse, Daily Past Drug Use History: None Reported - Past Family History Sister(s) Family Medical History: Diabetes Mellitus Mother Family Medical History: Diabetes Mellitus Additional Family Medical History / Comment(s): from sudhakar johnsons syndrome Father Family Medical History: Diabetes Mellitus, Myocardial Infarction ([place]) Additional Family Medical History / Comment(s): from dm complications General Exam Limitations: no limitations General appearance: alert, in no apparent distress Head exam: Present: atraumatic, normocephalic, normal inspection Eye exam: Present: normal appearance, PERRL, EOMI. Absent: scleral icterus, conjunctival injection, periorbital swelling ENT exam: Present: normal exam, normal oropharynx, mucous membranes moist Neck exam: Present: normal inspection, full ROM. Absent: tenderness, meningismus, lymphadenopathy Respiratory exam: Present: normal lung sounds bilaterally. Absent: respiratory distress, wheezes, rales, rhonchi, stridor Cardiovascular Exam: Present: regular rate, normal rhythm, normal heart sounds. Absent: systolic murmur, diastolic murmur, rubs, gallop, clicks GI/Abdominal exam: Present: soft, normal bowel sounds. Absent: distended, tenderness, guarding, rebound, rigid Back exam: Absent: CVA tenderness (R), CVA tenderness (L) Neurological exam: Present: alert Course Vital Signs 02/28/24 02/28/24 02/28/24 08:12 09:20 09:33 Temperature Pulse Rate 108 H 95 92 Respiratory 18 18 14 Rate Blood Pressure 137/97 134/100 129/99 O2 Sat by Pulse 95 98 97 Oximetry 02/28/24 02/28/24 02/28/24 10:00 12:04 13:43 Temperature 97.4 F L Pulse Rate 90 102 H 96 Respiratory 16 16 Rate Blood Pressure 115/89 119/94 128/93 O2 Sat by Pulse 94 L 99 99 Oximetry Medical Decision Making - Medical Decision Making Was pt. sent in by a medical professional or institution (, PA, SENIOR SOLUTIONS ARCHITECT, urgent care, hospital, or shelter...) When possible be specific @ -No Did you speak to anyone other than the patient for history (EMS, parent, family, police, friend...)? What history was obtained from this source @ -No Did you review nursing and triage notes (agree or disagree)? Why? @ -I reviewed and agree with nursing and triage notes Were old charts reviewed (outside hosp., previous admission, EMS record, old EKG, old radiological studies, urgent care reports/EKG's, shelter records)? Report findings @ -No old charts were reviewed Differential Diagnosis (chest pain, altered mental status, abdominal pain women, abdominal pain men, vaginal bleeding, weakness, fever, dyspnea, syncope, headache, dizziness, GI bleed, back pain, seizure, CVA, palpatations, mental health, musculoskeletal)? @ -Intoxication, dehydration EKG interpreted by me (3pts min.). @ -None X-rays interpreted by me (1pt min.). @ -None done CT interpreted by me (1pt min.). @ -None done U/S interpreted by me (1pt. min.). @ -None done What testing was considered but not performed or refused? (CT, X-rays, U/S, labs)? Why? @ -None What meds were considered but not given or refused? Why? @ -None Did you discuss the management of the patient with other professionals (professionals i.e. DrMynor, PA, SENIOR SOLUTIONS ARCHITECT, lab, RT, psych nurse, adoption social worker, geriatric nurse, teacher, veterinary medical officer, caseworker)? Give summary @ -No Was smoking cessation discussed for >3mins.? @ -No Was critical care preformed (if so, how long)? @ -No Were there social determinants of health that impacted care today? How? (Homelessness, low income, unemployed, alcoholism, drug addiction, transportation, low edu. Level, literacy, decrease access to med. care, penitentiary, rehab)? @ -No Was there de-escalation of care discussed even if they declined (Discuss DNR or withdrawal of care, Hospice)? DNR status @ -No What co-morbidities impacted this encounter? (DM, HTN, Smoking, COPD, CAD, Cancer, CVA, ARF, Chemo, Hep., AIDS, mental health diagnosis, sleep apnea, morbid obesity)? @ -None Was patient admitted / discharged? Hospital course, mention meds given and route, prescriptions, significant lab abnormalities, going to OR and other pertinent info. @ -[Patient presented for alcohol intoxication patient was observed for several hours and discharged in stable condition return parameters discussed Undiagnosed new problem with uncertain prognosis? @ -No Drug Therapy requiring intensive monitoring for toxicity (Heparin, Nitro, Insulin, Cardizem)? @ -No Were any procedures done? @ -No Diagnosis/symptom? @ -Alcohol intoxication Acute, or Chronic, or Acute on Chronic? @ -Acute Uncomplicated (without systemic symptoms) or Complicated (systemic symptoms)? @ -Uncomplicated Side effects of treatment? @ -No Exacerbation, Progression, or Severe Exacerbation? @ -No Poses a threat to life or bodily function? How? (Chest pain, [place], [place], pneumonia, PE, COPD, DKA, ARF, appy, cholecystitis, CVA, Diverticulitis, Homicidal, Suicidal, threat to staff... and all critical care pts) @ -No Disposition Clinical Impression: Alcoholic intoxication Disposition: HOME SELF-CARE Condition: Stable Instructions (If sedation given, give patient instructions): Alcohol Intoxication (ED) Additional Instructions: Please return to the Emergency Department if symptoms worsen or any other concerns. Is patient prescribed a controlled substance at d/c from ED?: No Referrals: None,Stated [Primary Care Provider] - 1-2 days Time of Disposition: 13:20
[2024-02-28 10:30] VITALS: RESP 16
[2024-02-28 10:31] VITALS: TEMP 97.4
[2024-02-28 14:21] VITALS: BP 128/93; PULSE 96
== END 2024-02-28 14:13 | disposition home or self-care (01) ==
LOC: EC 08:10
DX: F10.129 Alcohol abuse with intoxication, unspecified (principal)
CPT/HCPCS: 82075; 99284

== ENCOUNTER 2024-02-28 21:01 | Emergency (ER) | payer OTHER ==
[2024-02-28 21:37] VITALS: RESP 18; TEMP 98.2
--- NOTE | 2024-02-28 21:53 | ED ---
Alcohol HPI - General Source: patient Mode of arrival: EMS Limitations: no limitations <Rashad Hoffman - Last Filed: 02/29/24 04:03> <Stephen Madrid - Last Filed: 02/29/24 06:10> - General Chief Complaint: Alcohol Stated Complaint: ETOH Time Seen by Provider: 02/28/24 21:53 - History of Present Illness Initial Comments: 43-year-old male well-known to our ER presenting for alcohol intoxication. Patient states he has been drinking 6-7 beers and liquor. (Rashad Hoffman) - Related Data Home Medications Medication Instructions Recorded Confirmed Acetaminophen Tab [Tylenol] 650 mg PO DIRECTED PRN 02/21/24 02/21/24 Thiamine [Vitamin B-1] 100 mg PO DIRECTED 02/21/24 02/21/24 amLODIPine [Norvasc] 5 mg PO DIRECTED 02/21/24 02/21/24 Allergies Allergy/AdvReac Type Severity Reaction Status Date / Time No Known Allergies Allergy Verified 02/28/24 21:37 Review of Systems ROS Other: All systems not noted in ROS Statement are negative. <Rashad Hoffman - Last Filed: 02/29/24 04:03> ROS Other: All systems not noted in ROS Statement are negative. <Stephen Madrid - Last Filed: 02/29/24 06:10> ROS Statement: Those systems with pertinent positive or pertinent negative responses have been documented in the HPI. Past Medical History Past Medical History: Hypertension, Pneumonia, Seizure Disorder Additional Past Medical History / Comment(s): ETOH History of Any Multi-Drug Resistant Organisms: None Reported Past Surgical History: Joint Replacement, Orthopedic Surgery Additional Past Surgical History / Comment(s): Right leg. surgery, left leg incision and drainage for spider bite, jaw surgery 2018 Past Anesthesia/Blood Transfusion Reactions: No Reported Reaction Past Psychological History: Anxiety Smoking Status: Never smoker Past Alcohol Use History: Abuse, Daily Past Drug Use History: None Reported - Past Family History Sister(s) Family Medical History: Diabetes Mellitus Mother Family Medical History: Diabetes Mellitus Additional Family Medical History / Comment(s): from sudhakar johnsons syndrome Father Family Medical History: Diabetes Mellitus, Myocardial Infarction ([place]) Additional Family Medical History / Comment(s): from dm complications <Rashad Hoffman - Last Filed: 02/29/24 04:03> General Exam Limitations: no limitations <Rashad Hoffman - Last Filed: 02/29/24 04:03> - General Exam Comments Initial Comments: Visual Physical Exam Vital signs reviewed General: Well-appearing, nontoxic, no acute distress. Head: Normocephalic, atraumatic Eyes: PERRLA, EOMI ENT: Airway patent Chest: Nonlabored breathing Skin: No visual rash, normal skin tone Neuro: Alert and oriented 3 Musculoskeletal: No gross abnormalities (Rashad Hoffman) Course Vital Signs 02/28/24 02/29/24 02/29/24 21:33 01:16 02:00 Temperature 98.2 F Pulse Rate 109 H 100 104 H Respiratory 18 18 18 Rate Blood Pressure 146/98 135/92 126/90 O2 Sat by Pulse 100 96 95 Oximetry 02/29/24 02/29/24 03:00 04:00 Temperature Pulse Rate 102 H 103 H Respiratory 18 18 Rate Blood Pressure 119/80 124/86 O2 Sat by Pulse 95 95 Oximetry Medical Decision Making <Rashad Hoffman - Last Filed: 02/29/24 04:03> <Stephen Madrid - Last Filed: 02/29/24 06:10> - Medical Decision Making I performed the quick note portion of this visit, electronically signed Rashad Hoffman PA-C (Rashad Hoffman) Patient care signed out to me. I am very familiar with the patient. Patient is here in the emergency department often for alcohol intoxication. Patient evaluated at the bedside at 6:10 AM found to be in stable condition. He is awake alert oriented and clinically sober. Patient appears to be baseline. Ambulatory without complications. Patient lives nearby. Patient will be discharged. (Stephen Madrid) Disposition <Rashad Hoffman - Last Filed: 02/29/24 04:03> Is patient prescribed a controlled substance at d/c from ED?: No Time of Disposition: 06:10 <Stephen Madrid - Last Filed: 02/29/24 06:10> Clinical Impression: Alcoholic intoxication Disposition: HOME SELF-CARE Condition: Fair Instructions (If sedation given, give patient instructions): Alcohol Intoxicati on (ED) Referrals: None,Stated [Primary Care Provider] - 1-2 days
[2024-02-29 03:50] VITALS: PULSE 102
[2024-02-29 06:20] VITALS: BP 122/76
== END 2024-02-29 06:15 | disposition home or self-care (01) ==
LOC: EC 21:01
DX: F10.129 Alcohol abuse with intoxication, unspecified (principal)
CPT/HCPCS: 99284

== ENCOUNTER 2024-02-29 21:26 | Emergency (ER) | payer OTHER ==
--- NOTE | 2024-02-29 21:45 | ED ---
General Adult HPI - General Chief complaint: Skin/Abscess/Foreign Body Stated complaint: Left leg infection, ETOH Time Seen by Provider: 02/29/24 21:29 Source: patient, EMS Mode of arrival: EMS Limitations: no limitations - History of Present Illness Initial comments: Dictation was produced using [employer] dictation software. please excuse any grammatical, word or spelling errors. Chief Complaint: 43-year-old male presents yet again for alcohol intoxication History of Present Illness: Patient is a 43-year-old male presents emergency department with alcohol intoxication. Patient is here almost daily for alcohol intoxication. Patient also complaining of left lower leg redness. Denies any fever. Patient is related and is a poor historian. The ROS documented in this emergency department record has been reviewed and confirmed by me. Those systems with pertinent positive or negative responses have been documented in the HPI. All other systems are other negative and/or noncontributory. - Related Data Home Medications Medication Instructions Recorded Confirmed Acetaminophen Tab [Tylenol] 650 mg PO DIRECTED PRN 02/21/24 02/21/24 Thiamine [Vitamin B-1] 100 mg PO DIRECTED 02/21/24 02/21/24 amLODIPine [Norvasc] 5 mg PO DIRECTED 02/21/24 02/21/24 Previous Rx's Medication Instructions Recorded Cephalexin [Keflex] 500 mg PO Q6HR 5 Days #20 cap 03/01/24 Allergies Allergy/AdvReac Type Severity Reaction Status Date / Time No Known Allergies Allergy Verified 02/28/24 21:37 Review of Systems ROS Statement: Those systems with pertinent positive or pertinent negative responses have been documented in the HPI. ROS Other: All systems not noted in ROS Statement are negative. Past Medical History Past Medical History: Hypertension, Pneumonia, Seizure Disorder Additional Past Medical History / Comment(s): ETOH History of Any Multi-Drug Resistant Organisms: None Reported Past Surgical History: Joint Replacement, Orthopedic Surgery Additional Past Surgical History / Comment(s): Right leg. surgery, left leg incision and drainage for spider bite, jaw surgery 2018 Past Anesthesia/Blood Transfusion Reactions: No Reported Reaction Past Psychological History: Anxiety Smoking Status: Never smoker Past Alcohol Use History: Abuse, Daily Past Drug Use History: None Reported - Past Family History Sister(s) Family Medical History: Diabetes Mellitus Mother Family Medical History: Diabetes Mellitus Additional Family Medical History / Comment(s): from sudhakar johnsons syndrome Father Family Medical History: Diabetes Mellitus, Myocardial Infarction ([place]) Additional Family Medical History / Comment(s): from dm complications General Exam - General Exam Comments Initial Comments: PHYSICAL EXAM: General Impression: Alert and oriented x3, not in acute distress HEENT: Normocephalic atraumatic, extra-ocular movements intact, pupils equal and reactive to light bilaterally, mucous membranes moist. Cardiovascular: Heart regular rate and rhythm Chest: Able to complete full sentences, no retractions, no tachypnea Abdomen: abdomen soft, non-tender, non-distended, no organomegaly Musculoskeletal: Pulses present and equal in all extremities, no peripheral edema Motor: no focal deficits noted Neurological: CN II-XII grossly intact, no focal motor or sensory deficits noted Skin: Small focal area of erythema to the left anterior tibia Psych: Normal affect and mood Limitations: no limitations Course Vital Signs 02/29/24 02/29/24 21:29 23:50 Temperature 98.2 F Pulse Rate 100 80 Respiratory 18 16 Rate Blood Pressure 135/97 116/70 O2 Sat by Pulse 100 98 Oximetry Medical Decision Making - Medical Decision Making Was pt. sent in by a medical professional or institution (, [place], [facility], urgent care, hospital, or longterm...) When possible be specific @ -No Did you speak to anyone other than the patient for history (EMS, parent, family, police, friend...)? What history was obtained from this source @ -No Did you review nursing and triage notes (agree or disagree)? Why? @ -I reviewed and agree with nursing and triage notes Were old charts reviewed (outside hosp., previous admission, EMS record, old EKG, old radiological studies, urgent care reports/EKG's, longterm records)? Report findings @ -No old charts were reviewed Differential Diagnosis (chest pain, altered mental status, abdominal pain women, abdominal pain men, vaginal bleeding, musculoskeletal, weakness, fever, dyspnea, syncope, headache, dizziness, GI bleed, back pain, seizure, CVA, palpatations, mental health)? @ -Not applicable EKG interpreted by me (3pts min.). @ -None done X-rays interpreted by me (1pt min.). @ -None done CT interpreted by me (1pt min.). @ -None done U/S interpreted by me (1pt. min.). @ -None done What testing was considered but not performed or refused? (CT, X-rays, U/S, labs)? Why? @ -None What meds were considered but not given or refused? Why? @ -None Did you discuss the management of the patient with other professionals (professionals i.e. DrMynor, PA, [facility], lab, RT, psych nurse, social security specialist, denture model maker, teacher, railway patrol officer, continuous pillowcase cutter)? Give summary @ -No Was smoking cessation discussed for >3mins.? @ -No Was critical care preformed (if so, how long)? @ -No Were there social determinants of health that impacted care today? How? (Homelessness, low income, unemployed, alcoholism, drug addiction, transportation, low edu. Level, literacy, decrease access to med. care, assisted, rehab)? @ -No Was there de-escalation of care discussed even if they declined (Discuss DNR or withdrawal of care, Hospice)? DNR status @ -No What co-morbidities impacted this encounter? (DM, HTN, Smoking, COPD, CAD, Cancer, CVA, ARF, Chemo, Hep., AIDS, mental health diagnosis, sleep apnea, morbid obesity)? @ -None Was patient admitted / discharged? Hospital course, mention meds given and route, prescriptions, significant lab abnormalities, going to OR and other pertinent info. @ -43-year-old male presents emergency department for clinical presentation consistent with cellulitis of the soft tissues of the left lower extremity. Patient again is alcohol intoxicated. Patient observed emergency department for clinical sobriety. Patient reevaluated at 1:30 AM vitamin stable condition. He is alert and oriented in no acute distress. Patient will be discharged. Prescriptions provided for Keflex. Undiagnosed new problem with uncertain prognosis? @ -No Drug Therapy requiring intensive monitoring for toxicity (Heparin, Nitro, Insulin, Cardizem)? @ -No Were any procedures done? @ -No Diagnosis/symptom? Acute, or Chronic, or Acute on Chronic? Uncomplicated (without systemic symptoms) or Complicated (systemic symptoms)? @ -Lower extremity cellulitis Side effects of treatment? @ -No Exacerbation, Progression, or Severe Exacerbation? @ -No Poses a threat to life or bodily function? How? (Chest pain, [place], [place], pneumonia, PE, COPD, DKA, ARF, appy, cholecystitis, CVA, Diverticulitis, Homicidal, Suicidal, threat to staff... and all critical care pts) @ -No Disposition Clinical Impression: Cellulitis Disposition: HOME SELF-CARE Condition: Good Instructions (If sedation given, give patient instructions): Cellulitis (ED) Prescriptions: Cephalexin [Keflex] 500 mg PO Q6HR 5 Days #20 cap Is patient prescribed a controlled substance at d/c from ED?: No Referrals: None,Stated [Primary Care Provider] - 1-2 days Time of Disposition: 01:31
[2024-02-29] MEDS: CEPHALEXIN 500 MG CAP PO STA (22:41)
[2024-03-01 02:09] VITALS: BP 110/78; PULSE 102; RESP 17; TEMP 97.9
== END 2024-03-01 01:44 | disposition home or self-care (01) ==
LOC: EC 21:26
DX: L03.116 Cellulitis of left lower limb (principal)
CPT/HCPCS: 99284

== ENCOUNTER 2024-03-14 22:36 | Emergency (ER) | payer OTHER ==
[2024-03-14 23:10] VITALS: BP 116/71; PULSE 94; RESP 18; TEMP 98.4
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
== END 2024-03-15 03:55 | disposition home or self-care (01) ==
LOC: EC 22:36
DX: F10.129 Alcohol abuse with intoxication, unspecified (principal); Z59.00 Homelessness unspecified
CPT/HCPCS: 99283

== ENCOUNTER 2024-03-17 | Emergency (ER) | payer OTHER ==
[2024-03-17 00:18] VITALS: RESP 16; TEMP 98
--- NOTE | 2024-03-17 01:31 | ED ---
General Adult HPI - General Chief complaint: Alcohol Stated complaint: Chest pain, Leg pain Time Seen by Provider: 03/17/24 01:09 Source: patient, RN notes reviewed, old records reviewed Mode of arrival: ambulatory Limitations: no limitations - History of Present Illness Initial comments: 43-year-old male well-known to this emergency department presenting with alcohol intoxication. Patient has no physical complaints at the time my initial evaluation although he is significantly intoxicated. Vital signs are stable. - Related Data Home Medications Medication Instructions Recorded Confirmed Acetaminophen Tab [Tylenol] 650 mg PO DIRECTED PRN 02/21/24 02/21/24 Thiamine [Vitamin B-1] 100 mg PO DIRECTED 02/21/24 02/21/24 amLODIPine [Norvasc] 5 mg PO DIRECTED 02/21/24 02/21/24 Previous Rx's Medication Instructions Recorded Cephalexin [Keflex] 500 mg PO Q6HR 5 Days #20 cap 03/01/24 Allergies Allergy/AdvReac Type Severity Reaction Status Date / Time No Known Allergies Allergy Verified 03/14/24 22:42 Review of Systems ROS Statement: Those systems with pertinent positive or pertinent negative responses have been documented in the HPI. ROS Other: All systems not noted in ROS Statement are negative. Past Medical History Past Medical History: Hypertension, Pneumonia, Seizure Disorder Additional Past Medical History / Comment(s): ETOH History of Any Multi-Drug Resistant Organisms: None Reported Past Surgical History: Joint Replacement, Orthopedic Surgery Additional Past Surgical History / Comment(s): Right leg. surgery, left leg incision and drainage for spider bite, jaw surgery 2018 Past Anesthesia/Blood Transfusion Reactions: No Reported Reaction Past Psychological History: Anxiety Smoking Status: Never smoker Past Alcohol Use History: Abuse, Daily, Heavy Past Drug Use History: None Reported - Past Family History Sister(s) Family Medical History: Diabetes Mellitus Mother Family Medical History: Diabetes Mellitus Additional Family Medical History / Comment(s): from sudhakar johnsons syndrome Father Family Medical History: Diabetes Mellitus, Myocardial Infarction ([place]) Additional Family Medical History / Comment(s): from dm complications General Exam Limitations: no limitations General appearance: alert, in no apparent distress Head exam: Present: atraumatic, normocephalic Eye exam: Present: normal appearance, PERRL ENT exam: Present: normal exam Neck exam: Present: normal inspection. Absent: tenderness Respiratory exam: Present: normal lung sounds bilaterally. Absent: respiratory distress Cardiovascular Exam: Present: regular rate, normal rhythm GI/Abdominal exam: Present: soft. Absent: distended, tenderness, guarding Neurological exam: Present: alert, CN II-XII intact. Absent: motor sensory deficit Psychiatric exam: Present: normal affect, normal mood Skin exam: Present: warm, dry, intact Course Vital Signs 03/17/24 00:16 Temperature 98 F Pulse Rate 94 Respiratory 16 Rate Blood Pressure 123/77 O2 Sat by Pulse 98 Oximetry Medical Decision Making - Medical Decision Making Was pt. sent in by a medical professional or institution (, DEVIN, RCP, urgent care, hospital, or penitentiary...) When possible be specific @ -No Did you speak to anyone other than the patient for history (EMS, parent, family, police, friend...)? What history was obtained from this source @ -No Did you review nursing and triage notes (agree or disagree)? Why? @ -I reviewed and agree with nursing and triage notes Were old charts reviewed (outside hosp., previous admission, EMS record, old EKG, old radiological studies, urgent care reports/EKG's, penitentiary records)? Report findings @ -No old charts were reviewed Differential Diagnosis :alcohol intoxication EKG interpreted by me (3pts min.). @ -As above X-rays interpreted by me (1pt min.). @ -None done CT interpreted by me (1pt min.). @ -None done U/S interpreted by me (1pt. min.). @ -None done What testing was considered but not performed or refused? (CT, X-rays, U/S, labs)? Why? @ -None What meds were considered but not given or refused? Why? @ -None Did you discuss the management of the patient with other professionals (professionals i.e. DEVIN Woo, RCP, lab, RT, psych nurse, social science teacher, chemical equipment sales engineer, teacher, training systems officer, case management manager)? Give summary @ -No Was smoking cessation discussed for >3mins.? @ -No Was critical care preformed (if so, how long)? @ -No Were there social determinants of health that impacted care today? How? (Homelessness, low income, unemployed, alcoholism, drug addiction, transportation, low edu. Level, literacy, decrease access to med. care, alf, rehab)? @ -No Was there de-escalation of care discussed even if they declined (Discuss DNR or withdrawal of care, Hospice)? DNR status @ -No What co-morbidities impacted this encounter? (DM, HTN, Smoking, COPD, CAD, Cancer, CVA, ARF, Chemo, Hep., AIDS, mental health diagnosis, sleep apnea, morbid obesity)? @ -None Was patient admitted / discharged? Hospital course, mention meds given and route, prescriptions, significant lab abnormalities, going to OR and other pertinent info. @ -[43-year-old male presenting with alcohol intoxication. Patient observed in the emergency department. Monitored until he is sober and then discharged in stable condition. Undiagnosed new problem with uncertain prognosis? @ -No Drug Therapy requiring intensive monitoring for toxicity (Heparin, Nitro, Insulin, Cardizem)? @ -No Were any procedures done? @ -No Diagnosis/symptom? @Alcohol intoxication Acute, or Chronic, or Acute on Chronic? @ -Acute Uncomplicated (without systemic symptoms) or Complicated (systemic symptoms)? @ -Default Side effects of treatment? @ -No Exacerbation, Progression, or Severe Exacerbation? @ -No Poses a threat to life or bodily function? How? (Chest pain, [place], [place], pneumonia, PE, COPD, DKA, ARF, appy, cholecystitis, CVA, Diverticulitis, Homicidal, Suicidal, threat to staff... and all critical care pts) @ -No Disposition Clinical Impression: Alcoholic intoxication Disposition: HOME SELF-CARE Condition: Fair Instructions (If sedation given, give patient instructions): Alcohol Intoxication (ED) Is patient prescribed a controlled substance at d/c from ED?: No Referrals: Luis Cho MD [Primary Care Provider] - 1-2 days Time of Disposition: 06:00
[2024-03-17 06:30] VITALS: BP 119/68; PULSE 95
== END 2024-03-17 06:36 | disposition home or self-care (01) ==
LOC: EC
DX: F10.129 Alcohol abuse with intoxication, unspecified (principal)
CPT/HCPCS: 99283

== ENCOUNTER 2024-03-19 01:37 | Emergency (ER) | payer OTHER ==
[2024-03-19] MEDS: PROPARACAINE 0.5% OPHTH DROPS 15 ML BTL LEFT EYE STA (02:56)
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
[2024-03-19 07:42] VITALS: BP 105/70; PULSE 92; RESP 16; TEMP 97.8
== END 2024-03-19 07:08 | disposition home or self-care (01) ==
LOC: EC 01:37
DX: S05.12XA Contusion of eyeball and orbital tissues, left eye, initial encounter (principal); F10.129 Alcohol abuse with intoxication, unspecified; X58.XXXA Exposure to other specified factors, initial encounter
CPT/HCPCS: 99284

== ENCOUNTER 2024-03-20 23:12 | Emergency (ER) | payer OTHER ==
[2024-03-20 23:17] VITALS: TEMP 97.5
--- NOTE | 2024-03-20 23:43 | ED ---
Alcohol HPI - General Chief Complaint: Alcohol Stated Complaint: ETOH Time Seen by Provider: 03/20/24 23:17 Source: patient, EMS Mode of arrival: EMS - History of Present Illness Initial Comments: 43-year-old male presenting with chief complaint of leg pain. Patient states that he was playing basketball earlier today and now he is having soreness to the left lower leg. States he has a previous injury to this leg and it is still sensitive. He has had no new injury today. He still has full range of motion. Patient is currently intoxicated. He has been seen in our department frequently for intoxication. - Related Data Home Medications Medication Instructions Recorded Confirmed Acetaminophen Tab [Tylenol] 650 mg PO DIRECTED PRN 02/21/24 02/21/24 Thiamine [Vitamin B-1] 100 mg PO DIRECTED 02/21/24 02/21/24 amLODIPine [Norvasc] 5 mg PO DIRECTED 02/21/24 02/21/24 Previous Rx's Medication Instructions Recorded Cephalexin [Keflex] 500 mg PO Q6HR 5 Days #20 cap 03/01/24 Allergies Allergy/AdvReac Type Severity Reaction Status Date / Time No Known Allergies Allergy Verified 03/14/24 22:42 Review of Systems ROS Statement: Those systems with pertinent positive or pertinent negative responses have been documented in the HPI. ROS Other: All systems not noted in ROS Statement are negative. Past Medical History Past Medical History: Hypertension, Pneumonia, Seizure Disorder Additional Past Medical History / Comment(s): ETOH History of Any Multi-Drug Resistant Organisms: None Reported Past Surgical History: Joint Replacement, Orthopedic Surgery Additional Past Surgical History / Comment(s): Right leg. surgery, left leg incision and drainage for spider bite, jaw surgery 2018 Past Anesthesia/Blood Transfusion Reactions: No Reported Reaction Past Psychological History: Anxiety Smoking Status: Never smoker Past Alcohol Use History: Abuse, Daily, Heavy Past Drug Use History: None Reported - Past Family History Sister(s) Family Medical History: Diabetes Mellitus Mother Family Medical History: Diabetes Mellitus Additional Family Medical History / Comment(s): from sudhakar johnsons syndrome Father Family Medical History: Diabetes Mellitus, Myocardial Infarction ([place]) Additional Family Medical History / Comment(s): from dm complications General Exam General appearance: alert, in no apparent distress Head exam: Present: atraumatic, normocephalic Eye exam: Present: normal appearance Neck exam: Present: normal inspection Respiratory exam: Absent: respiratory distress Cardiovascular Exam: Present: regular rate Extremities exam: Present: normal inspection, full ROM, tenderness (L lower leg), normal capillary refill Neurological exam: Present: alert, oriented X3 Psychiatric exam: Present: normal affect, normal mood Skin exam: Present: warm, dry Course Vital Signs 03/20/24 03/21/24 03/21/24 23:13 02:00 02:50 Temperature 97.5 F L Pulse Rate 100 103 H 110 H Respiratory 18 20 17 Rate Blood Pressure 130/98 116/90 O2 Sat by Pulse 95 98 Oximetry 03/21/24 06:16 Temperature Pulse Rate 99 Respiratory 17 Rate Blood Pressure 126/52 O2 Sat by Pulse 98 Oximetry Medical Decision Making - Medical Decision Making Was pt. sent in by a medical professional or institution (, PA, CONVERTER SUPERVISOR, urgent care, hospital, or residential...) When possible be specific @ -No Did you speak to anyone other than the patient for history (EMS, parent, family, police, friend...)? What history was obtained from this source @ -No Did you review nursing and triage notes (agree or disagree)? Why? @ -I reviewed and agree with nursing and triage notes Were old charts reviewed (outside hosp., previous admission, EMS record, old EKG, old radiological studies, urgent care reports/EKG's, residential records)? Report findings @ -No old charts were reviewed Differential Diagnosis (chest pain, altered mental status, abdominal pain women, abdominal pain men, vaginal bleeding, weakness, fever, dyspnea, syncope, headache, dizziness, GI bleed, back pain, seizure, CVA, palpatations, mental health, musculoskeletal)? @ -Differential includes sprain, strain, fracture, dislocation, compartment syndrome, limb ischemia, this is not an all-inclusive list EKG interpreted by me (3pts min.). @ -As above X-rays interpreted by me (1pt min.). @ -None done CT interpreted by me (1pt min.). @ -None done U/S interpreted by me (1pt. min.). @ -None done What testing was considered but not performed or refused? (CT, X-rays, U/S, labs)? Why? @ -X-ray considered, however the patient is having nonspecific soreness to the leg this does not appear consistent with fracture or dislocation he has good range of motion as well What meds were considered but not given or refused? Why? @ -None Did you discuss the management of the patient with other professionals (professionals i.e. , PA, CONVERTER SUPERVISOR, lab, RT, psych nurse, social and political studies professor, dining host, teacher, airfield services officer, pillowcase sewer)? Give summary @ -No Was smoking cessation discussed for >3mins.? @ -No Was critical care preformed (if so, how long)? @ -No Were there social determinants of health that impacted care today? How? (Homelessness, low income, unemployed, alcoholism, drug addiction, transportation, low edu. Level, literacy, decrease access to med. care, longterm, rehab)? @ -No Was there de-escalation of care discussed even if they declined (Discuss DNR or withdrawal of care, Hospice)? DNR status @ -No What co-morbidities impacted this encounter? (DM, HTN, Smoking, COPD, CAD, Cancer, CVA, ARF, Chemo, Hep., AIDS, mental health diagnosis, sleep apnea, morbi d obesity)? @ -None Was patient admitted / discharged? Hospital course, mention meds given and route, prescriptions, significant lab abnormalities, going to OR and other pertinent info. @ -43-year-old male presenting with chief complaint of leg pain. He was playing basketball earlier today. Pain is present to the left lower leg. On exam he is neurovascularly intact he has generalized soreness to the lower leg and knee, no pinpoint tenderness. He has good range of motion. Patient is intoxicated. He rested comfortably and was observed until clinically sober. Then he was discharged home via cab. Follow-up with PCP. Report back to ER with any new or worsening symptoms. Discussed return parameters and answered all questions. Patient conveyed verbal understanding and agreed to the plan. I discussed this case in detail with my attending Dr. Valdez Undiagnosed new problem with uncertain prognosis? @ -No Drug Therapy requiring intensive monitoring for toxicity (Heparin, Nitro, Ins ulin, Cardizem)? @ -No Were any procedures done? @ -No Diagnosis/symptom? @ -Leg pain, alcohol intoxication Acute, or Chronic, or Acute on Chronic? @ -Acute Uncomplicated (without systemic symptoms) or Complicated (systemic symptoms)? @ -Uncomplicated Side effects of treatment? @ -No Exacerbation, Progression, or Severe Exacerbation? @ -No Poses a threat to life or bodily function? How? (Chest pain, [place], [place], pneumonia, PE, COPD, DKA, ARF, appy, cholecystitis, CVA, Diverticulitis, Homicidal, Suicidal, threat to staff... and all critical care pts) @ -No Disposition Clinical Impression: Alcoholic intoxication, Right knee pain Disposition: HOME SELF-CARE Condition: Good Instructions (If sedation given, give patient instructions): Alcohol Intoxication (ED) Additional Instructions: Follow-up with PCP. Report back to ER with any new or worsening symptoms. Is patient prescribed a controlled substance at d/c from ED?: No Referrals: Luis Cho MD [Primary Care Provider] - 1-2 days
[2024-03-21 02:51] VITALS: RESP 17
[2024-03-21 06:17] VITALS: BP 126/52; PULSE 99
== END 2024-03-21 06:44 | disposition home or self-care (01) ==
LOC: EC 23:12
DX: F10.129 Alcohol abuse with intoxication, unspecified (principal); M25.562 Pain in left knee
CPT/HCPCS: 82075; 99284

== ENCOUNTER 2024-03-27 13:10 | Emergency (ER) | payer OTHER ==
--- NOTE | 2024-03-27 13:19 | ED ---
Extremity Problem HPI - General Source: patient, RN notes reviewed Mode of arrival: EMS Limitations: no limitations <Marybel Hayward - Last Filed: 03/27/24 13:17> - General Source: RN notes reviewed, old records reviewed Mode of arrival: EMS Limitations: no limitations - History of Present Illness MD Complaint: extremity pain, extremity swelling, joint pain -: days(s) Location: right History of Same: Yes -: Yes arthralgia Radiation: none Severity scale (1-10): 7 Quality: sharp Consistency: constant Improves with: nothing <Carroll Choi - Last Filed: 03/27/24 17:50> - General Chief complaint: Extremity Problem,Nontraumatic Stated complaint: R Foot gout Time Seen by Provider: 03/27/24 13:17 - History of Present Illness Initial comments: Quick Note: This is a 43 year old male who presents to the emergency department for right foot pain. Believes that he has gout and is having trouble putting his shoe on. (Marybel Hayward) This is a 43-year-old male to the ER for evaluation today. Patient is presenting today for evaluation of severe right foot and ankle pain, severe pain persistent right foot pain secondary to gout (Carroll Choi) - Related Data Home Medications Medication Instructions Recorded Confirmed Acetaminophen Tab [Tylenol] 650 mg PO DIRECTED PRN 02/21/24 02/21/24 Thiamine [Vitamin B-1] 100 mg PO DIRECTED 02/21/24 02/21/24 amLODIPine [Norvasc] 5 mg PO DIRECTED 02/21/24 02/21/24 Previous Rx's Medication Instructions Recorded Cephalexin [Keflex] 500 mg PO Q6HR 5 Days #20 cap 03/01/24 Allergies Allergy/AdvReac Type Severity Reaction Status Date / Time No Known Allergies Allergy Verified 03/14/24 22:42 Review of Systems ROS Other: All systems not noted in ROS Statement are negative. <Marybel Hayward - Last Filed: 03/27/24 13:17> ROS Other: All systems not noted in ROS Statement are negative. <Carroll Choi - Last Filed: 03/27/24 17:50> ROS Statement: Those systems with pertinent positive or pertinent negative responses have been documented in the HPI. Past Medical History Past Medical History: Hypertension, Pneumonia, Seizure Disorder Additional Past Medical History / Comment(s): ETOH History of Any Multi-Drug Resistant Organisms: None Reported Past Surgical History: Joint Replacement, Orthopedic Surgery Additional Past Surgical History / Comment(s): Right leg. surgery, left leg incision and drainage for spider bite, jaw surgery 2018 Past Anesthesia/Blood Transfusion Reactions: No Reported Reaction Past Psychological History: Anxiety Smoking Status: Never smoker Past Alcohol Use History: Abuse, Daily, Heavy Past Drug Use History: None Reported - Past Family History Sister(s) Family Medical History: Diabetes Mellitus Mother Family Medical History: Diabetes Mellitus Additional Family Medical History / Comment(s): from sudhakar johnsons syndrome Father Family Medical History: Diabetes Mellitus, Myocardial Infarction ([place]) Additional Family Medical History / Comment(s): from dm complications <Marybel Hayward - Last Filed: 03/27/24 13:17> General Exam <Marybel Hayward - Last Filed: 03/27/24 13:17> General appearance: alert, in no apparent distress Head exam: Present: atraumatic, normocephalic, normal inspection Eye exam: Present: normal appearance, PERRL, EOMI. Absent: scleral icterus, conjunctival injection, periorbital swelling ENT exam: Present: normal exam, mucous membranes moist Neck exam: Present: normal inspection. Absent: tenderness, meningismus, lymphadenopathy Respiratory exam: Present: normal lung sounds bilaterally. Absent: respiratory distress, wheezes, rales, rhonchi, stridor Cardiovascular Exam: Present: regular rate, normal rhythm, normal heart sounds. Absent: systolic murmur, diastolic murmur, rubs, gallop, clicks GI/Abdominal exam: Present: soft, normal bowel sounds. Absent: distended, tenderness, guarding, rebound, rigid Extremities exam: Present: normal inspection, full ROM, normal capillary refill. Absent: tenderness, pedal edema, joint swelling, calf tenderness Back exam: Present: normal inspection Neurological exam: Present: alert, oriented X3, CN II-XII intact Psychiatric exam: Present: normal affect, normal mood Skin exam: Present: warm, dry, intact, normal color. Absent: rash <Carroll Choi - Last Filed: 03/27/24 17:50> - General Exam Comments Initial Comments: Visual Physical Exam Vital signs reviewed General: Well-appearing, nontoxic, no acute distress. Head: Normocephalic, atraumatic Eyes: PERRLA, EOMI ENT: Airway patent Chest: Nonlabored breathing Skin: No visual rash, normal skin tone Neuro: Alert and oriented 3 Musculoskeletal: No gross abnormalities (Marybel Hayward) Course <Carroll Choi - Last Filed: 03/27/24 17:50> Vital Signs 03/27/24 13:55 Temperature 98.5 F Pulse Rate 110 H Respiratory 20 Rate Blood Pressure 129/84 O2 Sat by Pulse 98 Oximetry - Reevaluation(s) Reevaluation #1: 03/27/24 17:49 Medical records reviewed (Carroll Choi) Reevaluation #2: 03/27/24 17:49 Patient symptoms improved (Carroll Choi) Reevaluation #3: 03/27/24 17:49 Patient informed of results questions answered (Carroll Choi) Reevaluation #4: Was pt. sent in by a medical professional or institution (, PA, COMPUTER GRAPHIC ARTIST, urgent care, hospital, or penitentiary...) When possible be specific @ -no Did you speak to anyone other than the patient for history (EMS, parent, family, police, friend...)? What history was obtained from this source @ -no Did you review nursing and triage notes (agree or disagree)? Why? @ -agree Are old charts reviewed (outside hosp., previous admission, EMS record, old EKG, old radiological studies, urgent care reports/EKG's, penitentiary records)? Report findings @ -yes Differential Diagnosis (chest pain, altered mental status, abdominal pain women, abdominal pain men, vaginal bleeding, weakness, fever, dyspnea, syncope, headache, dizziness, GI bleed, back pain, seizure, CVA, palpatations, mental health, musculoskeletal)? @ -prior EKG interpreted by me (3pts min.). @ -yes X-rays interpreted by me (1pt min.). @ -yes negative for acute disease CT interpreted by me (1pt min.). @ -no U/S interpreted by me (1pt. min.). @ -no What testing was considered but not performed or refused? (CT, X-rays, U/S, labs)? Why? @ -none What meds were considered but not given or refused? Why? @ -none Did you discuss the management of the patient with other professionals (professionals i.e. , PA, COMPUTER GRAPHIC ARTIST, lab, RT, psych nurse, dialysis social worker, nut orchardist, teacher, nursing officer, case checker)? Give summary @ -no Was smoking cessation discussed for >3mins.? @ -no Was critical care preformed (if so, how long)? @ -no Were there social determinants of health that impacted care today? How? (Homelessness, low income, unemployed, alcoholism, drug addiction, transportation, low edu. Level, literacy, decrease access to med. care, long-term, rehab)? @ -none Was there de-escalation of care discussed even if they declined (Discuss DNR or withdrawal of care, Hospice)? DNR status @ -no What co-morbidities impacted this encounter? (DM, HTN, Smoking, COPD, CAD, Cancer, CVA, ARF, Chemo, Hep., AIDS, mental health diagnosis, sleep apnea, morbid obesity)? @ -none Was patient admitted / discharged? Hospital course, mention meds given and route, prescriptions, significant lab abnormalities, going to OR and other pertinent info. @ - Undiagnosed new problem with uncertain prognosis? @ -no Drug Therapy requiring intensive monitoring for toxicity (Heparin, Nitro, Insulin, Cardizem)? @ -no Were any procedures done? @ -no Diagnosis/symptom? @ - Acute, or Chronic, or Acute on Chronic? @ -Acute Uncomplicated (without systemic symptoms) or Complicated (systemic symptoms)? @ -Complicated Side effects of treatment? @ -no Exacerbation, Progression, or Severe Exacerbation? @ -exacerbation Poses a threat to life or bodily function? How? (Chest pain, [place], [place], pneumonia, PE, COPD, DKA, ARF, appy, cholecystitis, CVA, Diverticulitis, Homicidal, Suicidal, threat to staff... and all critical care pts) @ -yes (Carroll Choi) Medical Decision Making <Marybel Hayward - Last Filed: 03/27/24 13:17> - Radiology Data Radiology results: report reviewed (X-ray right foot negative for acute disease), image reviewed <Carroll Choi - Last Filed: 03/27/24 17:50> - Medical Decision Making I performed the QuickNote portion of this chart. Signed Marybel Hayward PA-C. (Marybel Hayward) 43 male to ER for foot pain gout pain uncontrolled pain. Right foot pain with x-rays negative for acute fracture traumatic injury. Patient's pain is controlled and can be discharged (Carroll Choi) Disposition <Marybel Hayward - Last Filed: 03/27/24 13:17> Is patient prescribed a controlled substance at d/c from ED?: No Time of Disposition: 17:55 <Carroll Choi - Last Filed: 03/27/24 17:50> Clinical Impression: Right ankle pain, Gout of right ankle Disposition: HOME SELF-CARE Condition: Good Instructions (If sedation given, give patient instructions): Gout (ED) Referrals: Luis Cho MD [Primary Care Provider] - 1-2 days
[2024-03-27 13:58] VITALS: RESP 20
[2024-03-27] MEDS: KETOROLAC 15 MG/ML 1 ML VIAL IM STA (18:06)
[2024-03-27] MEDS: dexAMETHasone 2 MG TAB PO STA (18:07)
[2024-03-27] MEDS: IBUPROFEN 600 MG STARTER PACK 4 TAB BTL PO STA (18:08)
--- NOTE | 2024-03-27 19:16 | XR ---
EXAMINATION TYPE: XR foot complete RT DATE OF EXAM: 03/27/2024 COMPARISON: NONE HISTORY: Gout TECHNIQUE: Three views are submitted. FINDINGS: The osseous structures are intact. There is no acute fracture or dislocation. Moderate first MCP j oint arthropathy. No erosive changes. Hammertoe deformities. IMPRESSION: 1. No acute fracture or dislocation. If symptoms persist, follow-up exam in 7 to 10 days could be ob tained. 2. Moderate first MTP joint arthropathy. No erosive changes.
[2024-03-27 19:58] VITALS: BP 128/77; PULSE 120; TEMP 98.3
== END 2024-03-27 19:57 | disposition home or self-care (01) ==
LOC: EC 13:10
DX: M10.071 Idiopathic gout, right ankle and foot (principal)
CPT/HCPCS: 73630; 99284; 96372; J8540; J1885

== ENCOUNTER 2024-04-05 03:56 | Emergency (ER) | payer OTHER ==
[2024-04-05 03:59] VITALS: BP 110/66; PULSE 114; RESP 20; TEMP 98.1
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
== END 2024-04-05 06:43 | disposition home or self-care (01) ==
LOC: EC 03:56
DX: M25.562 Pain in left knee (principal)
CPT/HCPCS: 99282

== ENCOUNTER 2024-04-07 01:56 | Emergency (ER) | payer OTHER ==
[2024-04-07 02:04] VITALS: BP 123/80; PULSE 93; RESP 18; TEMP 98
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
== END 2024-04-07 05:24 | disposition home or self-care (01) ==
LOC: EC 01:56
DX: F10.129 Alcohol abuse with intoxication, unspecified (principal); Y90.0 Blood alcohol level of less than 20 mg/100 ml
CPT/HCPCS: 99283

== ENCOUNTER 2024-04-15 19:39 | Observation (INO) | payer OTHER ==
--- NOTE | 2024-04-15 21:07 | ED ---
Alcohol HPI - General Chief Complaint: Alcohol Stated Complaint: ETOH Time Seen by Provider: 04/15/24 20:09 Source: EMS, RN notes reviewed Mode of arrival: EMS - History of Present Illness Initial Comments: 43-year-old male presenting to the ED with a chief complaint of alcohol in toxication. [place] why EMS brought the patient here for further evaluation. Currently has no complaints. - Related Data Home Medications Medication Instructions Recorded Confirmed Acetaminophen Tab [Tylenol] 650 mg PO DIRECTED PRN 02/21/24 04/15/24 Thiamine [Vitamin B-1] 100 mg PO DIRECTED 02/21/24 04/15/24 amLODIPine [Norvasc] 5 mg PO DIRECTED 02/21/24 04/15/24 Allergies Allergy/AdvReac Type Severity Reaction Status Date / Time No Known Allergies Allergy Verified 04/15/24 20:34 Review of Systems ROS Statement: Those systems with pertinent positive or pertinent negative responses have been documented in the HPI. ROS Other: All systems not noted in ROS Statement are negative. Past Medical History Past Medical History: Hypertension, Pneumonia, Seizure Disorder Additional Past Medical History / Comment(s): ETOH History of Any Multi-Drug Resistant Organisms: None Reported Past Surgical History: Joint Replacement, Orthopedic Surgery Additional Past Surgical History / Comment(s): Right leg. surgery, left leg incision and drainage for spider bite, jaw surgery 2018 Past Anesthesia/Blood Transfusion Reactions: No Reported Reaction Past Psychological History: Anxiety Smoking Status: Never smoker Past Alcohol Use History: Abuse, Daily, Heavy Past Drug Use History: None Reported - Past Family History Sister(s) Family Medical History: Diabetes Mellitus Mother Family Medical History: Diabetes Mellitus Additional Family Medical History / Comment(s): from sudhakar johnsons syndrome Father Family Medical History: Diabetes Mellitus, Myocardial Infarction ([place]) Additional Family Medical History / Comment(s): from dm complicatio ns General Exam General appearance: alert, in no apparent distress Eye exam: Present: normal appearance Neck exam: Present: normal inspection Respiratory exam: Present: normal lung sounds bilaterally Cardiovascular Exam: Present: regular rate GI/Abdominal exam: Present: soft, normal bowel sounds. Absent: distended, tenderness, guarding, rebound, rigid Neurological exam: Present: alert (Patient is alert and oriented however intoxicated.) Skin exam: Present: warm, dry Course Vital Signs 07/03/24 07/03/24 19:57 21:04 Temperature 98.1 F Pulse Rate 100 92 Respiratory 18 16 Rate Blood Pressure 114/68 118/70 O2 Sat by Pulse 98 97 Oximetry Medical Decision Making - Medical Decision Making Was pt. sent in by a medical professional or institution (, PA, MACHINE SHOP INSPECTOR, urgent care, hospital, or alf...) When possible be specific @ -No Did you speak to anyone other than the patient for history (EMS, parent, family, police, friend...)? What history was obtained from this source @ -No Did you review nursing and triage notes (agree or disagree)? Why? @ -I reviewed and agree with nursing and triage notes Were old charts reviewed (outside hosp., previous admission, EMS record, old EKG, old radiological studies, urgent care reports/EKG's, alf records)? Report findings @ -No old charts were reviewed Differential Diagnosis (chest pain, altered mental status, abdominal pain women, abdominal pain men, vaginal bleeding, weakness, fever, dyspnea, syncope, headache, dizziness, GI bleed, back pain, seizure, CVA, palpatations, mental health, musculoskeletal)? @ -Differential Altered Mental Status: Hypoglycemia, DKA, hypercapnia, ETOH, overdose, CO poisoning, trauma, myxedema coma, HTN encephalopathy, infection, encephalitis, psychosis, intercranial hemorrhage, hepatic encephalopathy, meningitis, CVA, this is not meant to be an all-inclusive list EKG interpreted by me (3pts min.). @ -None X-rays interpreted by me (1pt min.). @ -None done CT interpreted by me (1pt min.). @ -None done U/S interpreted by me (1pt. min.). @ -None done What testing was considered but not performed or refused? (CT, X-rays, U/S, labs)? Why? @ -None What meds were considered but not given or refused? Why? @ -None Did you discuss the management of the patient with other professionals (professionals i.e. , DEVIN, MACHINE SHOP INSPECTOR, lab, RT, psych nurse, psychosocial rehabilitation counselor, tomahawk weapon system operator, teacher, public safety officer, case management director)? Give summary @ -No Was smoking cessation discussed for >3mins.? @ -No Was critical care preformed (if so, how long)? @ -No Were there social determinants of health that impacted care today? How? (Homelessness, low income, unemployed, alcoholism, drug addiction, transportation, low edu. Level, literacy, decrease access to med. care, halfway, rehab)? @ -No Was there de-escalation of care discussed even if they declined (Discuss DNR or withdrawal of care, Hospice)? DNR status @ -No What co-morbidities impacted this encounter? (DM, HTN, Smoking, COPD, CAD, Cancer, CVA, ARF, Chemo, Hep., AIDS, mental health diagnosis, sleep apnea, morbid obesity)? @ -Alcoholism Was patient admitted / discharged? Hospital course, mention meds given and route, prescriptions, significant lab abnormalities, going to OR and other pertinent info. @ -Admission 43-year-old male presenting to the ED with lanes of alcohol intoxication. Patient reports that he drank too much was brought here by EMS secondary to this. Has no other complaints at this time. Laboratory studies reviewed. CBC largely unremarkable. Chemistry panel shows transaminitis consistent with alcohol abuse. UA unremarkable. Alcohol elevated at 416. Patient will be admitted secondary to alcohol intoxication. Undiagnosed new problem with uncertain prognosis? @ -No Drug Therapy requiring intensive monitoring for toxicity (Heparin, Nitro, Insulin, Cardizem)? @ -No Were any procedures done? @ -No Diagnosis/symptom? @ -Alcohol intoxication Acute, or Chronic, or Acute on Chronic? @ -Acute Uncomplicated (without systemic symptoms) or Complicated (systemic symptoms)? @ -Uncomplicated Side effects of treatment? @ -No Exacerbation, Progression, or Severe Exacerbation? @ -No Poses a threat to life or bodily function? How? (Chest pain, [place], [place], pneumonia, PE, COPD, DKA, ARF, appy, cholecystitis, CVA, Diverticulitis, Homicidal, Suicidal, threat to staff... and all critical care pts) @ -No - Lab Data Result diagrams: 04/15/24 21:42 04/15/24 21:42 Lab Results 04/15/24 04/15/24 04/15/24 Range/Units 21:42 21:42 21:42 WBC 3.2 L (3.8-10.6) k/uL RBC 3.87 L (4.30-5.90) m/uL Hgb 11.7 L (13.0-17.5) gm/dL Hct 36.9 L (39.0-53.0) % MCV 95.4 (80.0-100.0) fL MCH 30.3 (25.0-35.0) pg MCHC 31.7 (31.0-37.0) g/dL RDW 16.1 H (11.5-15.5) % Plt Count 141 L (150-450) k/uL MPV 8.6 Neutrophils % (Manual) 29 % Lymphocytes % (Manual) 58 % Monocytes % (Manual) 12 % Eosinophils % (Manual) 1 % Neutrophils # (Manual) 0.93 L (1.3-7.7) k/uL Lymphocytes # (Manual) 1.86 (1.0-4.8) k/uL Monocytes # (Manual) 0.38 (0-1.0) k/uL Eosinophils # (Manual) 0.03 (0-0.7) k/uL Nucleated RBCs 0 (0-0) /100 WBC Manual Slide Review Performed Anisocytosis Slight Target Cells Present Sodium 138 (137-145) mmol/L Potassium 4.2 (3.5-5.1) mmol/L Chloride 104 (98-107) mmol/L Carbon Dioxide 23 (22-30) mmol/L Anion Gap 11 mmol/L BUN 8 L (9-20) mg/dL Creatinine 0.70 (0.66-1.25) mg/dL Est GFR (CKD-EPI)AfAm >90 (>60 ml/min/1.73 sqM) Est GFR (CKD-EPI)NonAf >90 (>60 ml/min/1.73 sqM) Glucose 81 (74-99) mg/dL Calcium 8.8 (8.4-10.2) mg/dL Total Bilirubin 1.0 (0.2-1.3) mg/dL AST 227 H (17-59) U/L ALT 81 H (4-49) U/L Alkaline Phosphatase 217 H (38-126) U/L Total Protein 8.5 H (6.3-8.2) g/dL Albumin 4.4 (3.5-5.0) g/dL Urine Color Colorless Urine Appearance Clear (Clear) Urine pH 5.0 (5.0-8.0) Ur Specific Hilbert 1.005 (1.001-1.035) Urine Protein Negative (Negative) Urine Glucose (UA) Negative (Negative) Urine Ketones Negative (Negative) Urine Blood Negative (Negative) Urine Nitrite Negative (Negative) Urine Bilirubin Negative (Negative) Urine Urobilinogen <2.0 (<2.0) mg/dL Ur Leukocyte Esterase Negative (Negative) Serum Alcohol 416 H* mg/dL Disposition Clinical Impression: Alcohol intoxication Disposition: ADMITTED IP TO THIS HOSP Condition: Fair Referrals: Luis Cho MD [Primary Care Provider] - 1-2 days Time of Disposition: 00:05
[2024-04-15 22:07] LABS: Appearance,Urine Clear (Clear); Bilirubin,Urine Negative (Negative); Blood,Urine Negative (Negative); Color,Urine Colorless; Glucose,Urine (UA) Negative (Negative); Ketones,Urine Negative (Negative); Leukocyte Esterase,Urine Negative (Negative); Nitrite,Urine Negative (Negative); Protein,Urine Negative (Negative); Specific Gravity,Urine 1.005 (1.001-1.035); Urobilinogen,Urine <2.0 mg/dL (<2.0)
[2024-04-15 22:15] LABS: Anisocytosis Slight; HCT 36.9 % (39.0-53.0); HGB 11.7 gm/dL (13.0-17.5); MCH 30.3 pg (25.0-35.0); MCHC 31.7 g/dL (31.0-37.0); MCV 95.4 fL (80.0-100.0); Mean Platelet Volume 8.6; Platelet Count 141 k/uL (150-450); RBC 3.87 m/uL (4.30-5.90); RDW 16.1 % (11.5-15.5); WBC 3.2 k/uL (3.8-10.6)
[2024-04-15 22:16] LABS: ALT 81 U/L (4-49); AST 227 U/L (17-59); African American GFR (CKD) >90 (>60 ml/min/1.73 sqM); Albumin 4.4 g/dL (3.5-5.0); Alkaline Phosphatase 217 U/L (38-126); Anion Gap 11 mmol/L; Blood Urea Nitrogen 8 mg/dL (9-20); Calcium 8.8 mg/dL (8.4-10.2); Carbon Dioxide 23 mmol/L (22-30); Chloride 104 mmol/L (98-107); Glucose 81 mg/dL (74-99); Non-African American GFR(CKD) >90 (>60 ml/min/1.73 sqM); Potassium 4.2 mmol/L (3.5-5.1); Sodium 138 mmol/L (137-145); Total Protein 8.5 g/dL (6.3-8.2)
[2024-04-15 22:35] LABS: Alcohol 416 mg/dL
[2024-04-15 22:50] LABS: Eosinophils # (M) 0.03 k/uL (0-0.7); Lymphocytes # (M) 1.86 k/uL (1.0-4.8); Monocytes # (M) 0.38 k/uL (0-1.0); Neutrophils # (M) 0.93 k/uL (1.3-7.7); Neutrophils % (M) 29 %; Nucleated Red Blood Cells 0 /100 WBC (0-0); Target Cells Present; Total Cells Counted 100
[2024-04-16] MEDS ORDERED: LORazepam 2 MG/ML INJ IV PRN ×3 (00:05)
[2024-04-16] MEDS ORDERED: LORazepam 1 MG TAB PO PRN ×3 (00:05)
[2024-04-16] MEDS ORDERED: KETOROLAC 15 MG/ML 1 ML VIAL IVP PRN (00:06)
[2024-04-16] MEDS ORDERED: NALOXONE 0.4 MG/ML 1 ML VIAL IV PRN (00:06)
[2024-04-16] MEDS ORDERED: ONDANSETRON 4 MG/2 ML VIAL IVP PRN (00:06)
[2024-04-16] MEDS: SODIUM CHLORIDE 0.9% 1,000 ML IV STA (02:47)
[2024-04-16] MEDS: THIAMINE 100 MG/ML 2 ML VIAL IM STA (02:47)
[2024-04-16] MEDS: SODIUM CHLORIDE 0.9% 1,000 ML IV SCH (02:48)
[2024-04-16 03:33] LABS: Amphetamine Screen,Urine Not Detected (NotDetected); Barbiturate Screen,Urine Not Detected (NotDetected); Benzodiazepines Screen,Urine Not Detected (NotDetected); Cocaine Screen,Urine Not Detected (NotDetected); Methadone Screen, Urine Not Detected (NotDetected); Opiate Screen,Urine Not Detected (NotDetected); Oxycodone Screen, Urine Not Detected (NotDetected); Phencyclidine Screen,Urine Not Detected (NotDetected); Tricyclic Antidepressant,Urine Not Detected (NotDetected); Urn Cannabinoid Scrn Not Detected (NotDetected)
[2024-04-16 03:36] LABS: Magnesium 1.8 mg/dL (1.6-2.3); Phosphorus 4.4 mg/dL (2.5-4.5)
[2024-04-16] MEDS: HEPARIN SODIUM,PORCINE 5,000 UNIT/ML 1 ML VIAL SQ SCH (08:03)
[2024-04-16] MEDS: FAMOTIDINE 20 MG/2 ML VIAL IV SCH (09:21)
[2024-04-16] MEDS: MULTIVITAMINS, THERA 1 EACH TAB PO SCH (09:21)
--- NOTE | 2024-04-16 09:47 | P.HPIM ---
History of Present Illness Patient is a pleasant 43 years old male with past medical history of alcohol use and alcohol withdrawal and alcohol withdrawal seizure with multiple hospitalization for the same. Presents because of alcohol intoxication where he was feeling headache dizzy drowsy and passed out from drinking. This morning he woke up he is awake alert and oriented to time place person however he is still a little bit drowsy and weak aftermath of drinking from yesterday. Alcohol level on admission was 416 Patient states that usually he takes 4 drinks of liquor but yesterday he took extra Lasix drinks of liquor +2 shots. Patient denies smoking alcohol or illicit drugs He feels little bit down but denies overt signs symptoms of depression. He specifically denies suicidal or homicidal ideation. He does not want to stay in the hospital today as 16 April but he was not sure and feeling go back to drinking upon discharge or he wants to stay in detox and he will think about it and let us know. Vitals are stable He has mild pancytopenia with WBC 3.2, hemoglobin 11.7 and platelet count 141. Liver enzymes mildly elevated which is expected Urine analysis and urine drug screen were negative for infection or acute findings. In the emergency room he was started on CIWA protocol, thiamine and gentle hydration with normal saline at 50 mL/h Review of Systems Review of systems CONSTITUTIONAL: No fever, no malaise, no fatigue. HEENT: No recent visual problems or hearing problems. Denied any sore throat. CARDIOVASCULAR: No orthopnea, PND, no palpitations, no syncope. PULMONARY: No shortness of breath, no cough, no hemoptysis. GASTROINTESTINAL: No diarrhea, no nausea, no vomiting, no abdominal pain. Normo active bowel sounds. NEUROLOGICAL: No headaches, no weakness, no numbness. HEMATOLOGICAL: Denies any bleeding or petechiae. GENITOURINARY: Denies any burning micturition, frequency, or urgency. MUSCULOSKELETAL/RHEUMATOLOGICAL: Denies any joint pain, swelling, or any muscle pain. ENDOCRINE: Denies any polyuria or polydipsia. Past Medical History Past Medical History: Hypertension, Pneumonia, Seizure Disorder Additional Past Medical History / Comment(s): ETOH History of Any Multi-Drug Resistant Organisms: None Reported Past Surgical History: Joint Replacement, Orthopedic Surgery Additional Past Surgical History / Comment(s): Right leg. surgery, left leg incision and drainage for spider bite, jaw surgery 2018 Past Anesthesia/Blood Transfusion Reactions: No Reported Reaction Past Psychological History: Anxiety Smoking Status: Never smoker Past Alcohol Use History: Abuse, Daily, Heavy Past Drug Use History: None Reported - Past Family History Sister(s) Family Medical History: Diabetes Mellitus Mother Family Medical History: Diabetes Mellitus Additional Family Medical History / Comment(s): from sudhakar johnsons syndrome Father Family Medical History: Diabetes Mellitus, Myocardial Infarction ([place]) Additional Family Medical History / Comment(s): from dm complications Medications and Allergies Home Medications Medication Instructions Recorded Confirmed Type Acetaminophen Tab [Tylenol] 650 mg PO DIRECTED PRN 02/21/24 04/15/24 History Thiamine [Vitamin B-1] 100 mg PO DIRECTED 02/21/24 04/15/24 History amLODIPine [Norvasc] 5 mg PO DIRECTED 02/21/24 04/15/24 History Allergies Allergy/AdvReac Type Severity Reaction Status Date / Time No Known Allergies Allergy Verified 04/15/24 20:34 Physical Exam Vitals: Vital Signs Temp Pulse Resp BP Pulse Ox 04/16/24 09:22 113 H 20 128/91 98 04/16/24 06:00 86 16 112/64 96 04/16/24 05:00 81 17 98 04/16/24 03:00 81 18 120/80 98 04/16/24 01:00 84 16 120/76 99 04/15/24 23:00 85 16 110/64 98 04/15/24 21:04 92 16 118/70 97 04/15/24 19:57 98.1 F 100 18 114/68 98 Intake and Output 04/15/24 04/16/24 04/16/24 22:59 06:59 14:59 Other: Weight 72.575 kg GENERAL: The patient is alert and oriented x3, not in any acute distress. Well developed, well nourished. HEENT: Pupils are round and equally reacting to light. EOMI. No scleral icterus. No conjunctival pallor. Normocephalic, atraumatic. No pharyngeal erythema. No thyromegaly. CARDIOVASCULAR: S1 and S2 present. No murmurs, rubs, or gallops. PULMONARY: Chest is clear to auscultation, no wheezing , no crackles. ABDOMEN: Soft, nontender, nondistended, normoactive bowel sounds. No palpable organomegaly. MUSCULOSKELETAL: No joint swelling or deformity. EXTREMITIES: No cyanosis, clubbing, or pedal edema. NEUROLOGICAL: Gross neurological examination did not reveal any focal deficits. SKIN: No rashes. no petechiae. Results CBC & Chem 7: 04/15/24 21:42 04/15/24 21:42 Labs: Abnormal Lab Results - Last 24 Hours (Table) 04/15/24 04/15/24 Range/Units 21:42 21:42 WBC 3.2 L (3.8-10.6) k/uL RBC 3.87 L (4.30-5.90) m/uL Hgb 11.7 L (13.0-17.5) gm/dL Hct 36.9 L (39.0-53.0) % RDW 16.1 H (11.5-15.5) % Plt Count 141 L (150-450) k/uL Neutrophils # (Manual) 0.93 L (1.3-7.7) k/uL BUN 8 L (9-20) mg/dL AST 227 H (17-59) U/L ALT 81 H (4-49) U/L Alkaline Phosphatase 217 H (38-126) U/L Total Protein 8.5 H (6.3-8.2) g/dL Serum Alcohol 416 H* mg/dL Assessment and Plan Assessment: Alcohol intoxication at risk of alcohol withdrawal Alcoholic effect on bone marrow causing pancytopenia Alcoholic transaminitis Hypertension History of alcohol withdrawal seizure Plan: Continue with CIWA protocol and thiamine Gentle hydration We Counseled patient about the importance of to quit drinking and encouraged him to go to rehab upon discharge and he agrees He was not sure if he wants to quit drinking for now and he will inform the medical team later. If he does not want to stay continue monitored and treated for alcohol withdrawal. And he remains clinically stable he may be considered for discharge later on today or tomorrow depends on how he progresses. However overall he is significantly improved since injection DVT and GI prophylaxis
[2024-04-17] MEDS: LORazepam 0.5 MG TAB PO PRN (01:27)
[2024-04-17] MEDS: diphenhydrAMINE 50 MG/ML 1 ML VIAL IVP STA ×2 (05:50→13:49)
[2024-04-17] MEDS: THIAMINE 100 MG TAB PO SCH (09:02)
[2024-04-17] MEDS: methylPREDNISolone SOD SUCCI 125 MG/2 ML VIAL IV STA (13:48)
[2024-04-17 14:23] LABS: HCT 40.1 % (39.0-53.0); HGB 12.5 gm/dL (13.0-17.5); MCH 30.4 pg (25.0-35.0); MCHC 31.2 g/dL (31.0-37.0); MCV 97.4 fL (80.0-100.0); Mean Platelet Volume 8.8; Platelet Count 112 k/uL (150-450); RBC 4.12 m/uL (4.30-5.90); RDW 15.5 % (11.5-15.5); WBC 3.5 k/uL (3.8-10.6)
[2024-04-17 14:29] LABS: ALT 69 U/L (4-49); AST 207 U/L (17-59); African American GFR (CKD) >90 (>60 ml/min/1.73 sqM); Albumin 4.1 g/dL (3.5-5.0); Albumin/Globulin Ratio 1.1; Alkaline Phosphatase 143 U/L (38-126); Anion Gap 9 mmol/L; Bilirubin,Unconjugated 1.8 mg/dL (0.0-1.1); Blood Urea Nitrogen 2 mg/dL (9-20); Calcium 9.3 mg/dL (8.4-10.2); Carbon Dioxide 22 mmol/L (22-30); Chloride 106 mmol/L (98-107); Globulin 3.6 g/dL; Glucose 142 mg/dL (74-99); Non-African American GFR(CKD) >90 (>60 ml/min/1.73 sqM); Potassium 4.1 mmol/L (3.5-5.1); Sodium 137 mmol/L (137-145); Total Bilirubin 2.2 mg/dL (0.2-1.3); Total Protein 7.7 g/dL (6.3-8.2)
[2024-04-17 14:33] VITALS: BMI 25.8
[2024-04-17 20:42] VITALS: RESP 15
--- NOTE | 2024-04-18 06:01 | P.PN ---
Subjective Patient is a pleasant 43 years old male with past medical history of alcohol use and alcohol withdrawal and alcohol withdrawal seizure with multiple hospitalization for the same. Presents because of alcohol intoxication where he was feeling headache dizzy drowsy and passed out from drinking. This morning he woke up he is awake alert and oriented to time place person however he is still a little bit drowsy and weak aftermath of drinking from yesterday. Alcohol level on admission was 416 Patient states that usually he takes 4 drinks of liquor but yesterday he took extra Lasix drinks of liquor +2 shots. Patient denies smoking alcohol or illicit drugs He feels little bit down but denies overt signs symptoms of depression. He specifically denies suicidal or homicidal ideation. He does not want to stay in the hospital today as 16 April but he was not sure and feeling go back to drinking upon discharge or he wants to stay in detox and he will think about it and let us know. Vitals are stable He has mild pancytopenia with WBC 3.2, hemoglobin 11.7 and platelet count 141. Liver enzymes mildly elevated which is expected Urine analysis and urine drug screen were negative for infection or acute findings. In the emergency room he was started on CIWA protocol, thiamine and gentle hydration with normal saline at 50 mL/h 04/18/2024 Patient still undergoing alcohol withdrawal protocol He has some itching and Benadryl and one-time dose of steroids provided, close he had some urticaria rash which is now improving. Possible discharge in 24 hours if remains stable and improving Objective - Vital Signs Vital signs: Vital Signs Temp 98.8 F 04/17/24 19:15 Pulse 104 H 04/17/24 19:15 Resp 15 04/17/24 19:15 BP 150/87 04/17/24 19:15 Pulse Ox 100 04/17/24 19:15 FiO2 Intake & Output 04/17/24 04/17/24 04/18/24 06:59 18:59 06:59 Output Total 400 Balance -400 Weight 72.575 kg Output: Urine 400 Other: Voiding Method Toilet - Exam GENERAL: The patient is alert and oriented x3, not in any acute distress. Well developed, well nourished. HEENT: Pupils are round and equally reacting to light. EOMI. No scleral icterus. No conjunctival pallor. Normocephalic, atraumatic. No pharyngeal erythema. No thyromegaly. CARDIOVASCULAR: S1 and S2 present. No murmurs, rubs, or gallops. PULMONARY: Chest is clear to auscultation, no wheezing , no crackles. ABDOMEN: Soft, nontender, nondistended, normoactive bowel sounds. No palpable organomegaly. MUSCULOSKELETAL: No joint swelling or deformity. EXTREMITIES: No cyanosis, clubbing, or pedal edema. NEUROLOGICAL: Gross neurological examination did not reveal any focal deficits. -SKIN: No rashes. no petechiae. Patient vargas and scratch vargas - Labs CBC & Chem 7: 04/17/24 13:57 04/17/24 13:57 Labs: Abnormal Lab Results - Last 24 Hours (Table) 04/17/24 04/17/24 Range/Units 13:57 13:57 WBC 3.5 L (3.8-10.6) k/uL RBC 4.12 L (4.30-5.90) m/uL Hgb 12.5 L (13.0-17.5) gm/dL Plt Count 112 L (150-450) k/uL BUN 2 L (9-20) mg/dL Creatinine 0.61 L (0.66-1.25) mg/dL Glucose 142 H (74-99) mg/dL Total Bilirubin 2.2 H (0.2-1.3) mg/dL Unconjugated Bilirubin 1.8 H (0.0-1.1) mg/dL AST 207 H (17-59) U/L ALT 69 H (4-49) U/L Alkaline Phosphatase 143 H (38-126) U/L Assessment and Plan Assessment: Alcohol intoxication at risk of alcohol withdrawal Alcoholic effect on bone marrow causing pancytopenia Alcoholic transaminitis Hypertension History of alcohol withdrawal seizure Plan: Continue with CIWA protocol and thiamine Gentle hydration We Counseled patient about the importance of to quit drinking and encouraged him to go to rehab upon discharge and he agrees He was not sure if he wants to quit drinking for now and he will inform the medical team later. If he does not want to stay continue monitored and treated for alcohol withdrawal. And he remains clinically stable he may be considered for discharge later on today or tomorrow depends on how he progresses. However overall he is significantly improved since injection DVT and GI prophylaxis
[2024-04-18 07:53] VITALS: BP 132/82; TEMP 98.8
[2024-04-18] MEDS: diphenhydrAMINE 25 MG CAP PO PRN (09:22)
[2024-04-18 09:35] LABS: Albumin 4.6 g/dL (3.5-5.0); Globulin 4.6 g/dL; Total Protein 9.2 g/dL (6.3-8.2)
[2024-04-18 09:36] LABS: Bilirubin,Unconjugated 0.8 mg/dL (0.0-1.1); Total Bilirubin 1.3 mg/dL (0.2-1.3)
[2024-04-18] MEDS: CHOLESTYRAMINE (WITH SUGAR) 4 GM PACKET PO SCH (10:43)
[2024-04-18 11:45] VITALS: PULSE 97
--- NOTE | 2024-04-18 21:27 | P.DS ---
Providers Date of admission: 04/16/24 01:28 Attending physician: Isacc Waters MD Primary care physician: Luis Garberhven [facility] Course: Diagnoses Alcohol intoxication at risk of alcohol withdrawal Alcoholic effect on bone marrow causing pancytopenia Alcoholic transaminitis, improving pruritus moderate, Secondary to above including elevated bilirubin and alcoholic effect. Stable Hypertension History of alcohol withdrawal seizure Hospital course Patient is a pleasant 43 years old male with past medical history of alcohol use and alcohol withdrawal and alcohol withdrawal seizure with multiple hospitalization for the same. Presents because of alcohol intoxication where he was feeling headache dizzy drowsy and passed out from drinking. Patient was admitted to the hospital with alcohol intoxication with lab abnormality most likely secondary to alcoholic effect including mild pancytopenia and transaminitis secondary to alcohol effect. Okay was stable and improving. Patient developed pruritus secondary to his jaundice and elevated bilirubin and bile salts, improved with Benadryl and cholestyramine short course provided for him as it is moderate others Patient in the hospital over 3 days and the patient remained stable, no rash. No mouth ulcers. No blurred vision or double vision. Patient provided with Benadryl and cholestyramine with recommendation to follow-up with dermatology clinic in 1 to 2 days. Patient verbalized understanding and acceptance Patient was admitted for alcohol intoxication and positive for alcohol withdrawal, and monitored for over 48 hours with no signs symptoms alcohol withdrawal or. Patient was counseled extensively to abstinence from alcohol. Patient is at risk of relapse to drinking alcohol, pneumonia arrhythmia, from alcohol and he was explained all this risk and he verbalized understanding and acceptance Patient denies depression or suicidal homicidal ideation. No hallucination or delusions. Case was discussed with the bedside nurse will monitor the patient closely there was no concerns. Patient saturating well on room air, he is not receiving any IV fluid. He has good diet and appetite. He has regular bowel movements of abdomen. No chest pain or dyspnea. No headache or neurological symptoms. No rash. Problems and management plan were discussed with the patient and he verbalized understanding and acceptance Patient was found stable and can be discharged home in guarded prognosis however he needs follow-up as an outpatient. Patient was instructed to follow up with PCP within one week and patient agrees Pepcid also added upon discharge Physical exam Gen: patient is a AAOx3, no distress CVS: S1-S2, RRR, no murmur Lungs: B/L CTA, no wheezing Abdomen: soft, no distention, no tenderness, positive bowel sounds Extremity: no leg edema or induration Time spent more than 35 minutes Patient Condition at Discharge: Fair Plan - Discharge Summary Discharge Rx Participant: No New Discharge Prescriptions: New Cholestyramine (with Sugar) [Questran Packet] 4 gm PO BID@1000,1800 3 Days #6 packet diphenhydrAMINE [Benadryl] 25 mg PO TID PRN 5 Days #15 cap PRN Reason: Itching Multivitamins, Thera [Multivitamin (formulary)] 1 each PO DAILY #30 tab Famotidine [Pepcid] 20 mg PO BID 15 Days #30 tablet Continue amLODIPine [Norvasc] 5 mg PO DIRECTED Acetaminophen Tab [Tylenol] 650 mg PO DIRECTED PRN PRN Reason: Fever and/ or Mild Pain Thiamine [Vitamin B-1] 100 mg PO DIRECTED Discharge Medication List Acetaminophen Tab [Tylenol] 650 mg PO DIRECTED PRN 02/21/24 [History] Thiamine [Vitamin B-1] 100 mg PO DIRECTED 02/21/24 [History] amLODIPine [Norvasc] 5 mg PO DIRECTED 02/21/24 [History] Cholestyramine (with Sugar) [Questran Packet] 4 gm PO BID@1000,1800 3 Days #6 packet 04/18/24 [Rx] Famotidine [Pepcid] 20 mg PO BID 15 Days #30 tablet 04/18/24 [Rx] Multivitamins, Thera [Multivitamin (formulary)] 1 each PO DAILY #30 tab 04/18/24 [Rx] diphenhydrAMINE [Benadryl] 25 mg PO TID PRN 5 Days #15 cap 04/18/24 [Rx] Follow up Appointment(s)/Referral(s): Luis Cho MD [Primary Care Provider] - 1-2 days (please call for an appointment ) Marc Tatum MD [STAFF PHYSICIAN] - 1-2 Days (please call for an appointment ) Rainer Tatum MD [STAFF PHYSICIAN] - 1-2 Days Cherie Vargas MD [STAFF PHYSICIAN] - 1 Week (Liver doctor for your liver disease please call for an appointment ) Patient Instructions/Handouts: Alcohol Intoxication (DC), Abuse of Alcohol (DC), At-Risk Alcohol Use (GEN), Alcohol Withdrawal (GEN) Activity/Diet/Wound Care/Special Instructions: we recommend abstinence from alcohol heart healthy diet activity is restricted till you see your doctor Discharge/Stand Alone Forms: AA Liz Raphael, Outpatient Counseling, In Substance Abuse Facilities Discharge Disposition: HOME SELF-CARE
== END 2024-04-18 14:50 | disposition home or self-care (01) ==
LOC: EC 19:39 → 5NMEDONC 04-16 01:28 → 6NMEDSUR 04-16 05:09
PROVIDERS: ADMIT Internal Medicine; ATTEND Internal Medicine
DX: F10.229 Alcohol dependence with intoxication, unspecified (principal); F10.239 Alcohol dependence with withdrawal, unspecified; D61.818 Other pancytopenia; I10 Essential (primary) hypertension; L50.9 Urticaria, unspecified; R17 Unspecified jaundice; R74.01 Elevation of levels of liver transaminase levels; Y90.8 Blood alcohol level of 240 mg/100 ml or more; Z79.899 Other long term (current) drug therapy
CPT/HCPCS: 96376 ×2; 96374; 96375; 96361; 96372; 99285; 36415; 80053; 80048; 80076 ×2; 82977; 83735; 84100; 85025; 85027; 81003; 80306; 80320; G0378 ×4; J1200; J3411; J3490 ×2; J2919

== ENCOUNTER 2024-04-21 13:39 | Emergency (ER) | payer OTHER ==
[2024-04-21 13:58] VITALS: RESP 16; TEMP 98
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
[2024-04-21 17:19] VITALS: BP 127/76; PULSE 98
== END 2024-04-21 17:21 | disposition home or self-care (01) ==
LOC: EC 13:39
DX: F10.129 Alcohol abuse with intoxication, unspecified (principal); W18.30XA Fall on same level, unspecified, initial encounter
CPT/HCPCS: 99284

== ENCOUNTER 2024-04-25 00:01 | Emergency (ER) | payer OTHER ==
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
[2024-04-25 04:25] VITALS: RESP 18
[2024-04-25 06:13] VITALS: BP 110/73; PULSE 87; TEMP 97.6
--- NOTE | 2024-04-25 07:41 | XR ---
EXAMINATION TYPE: XR finger RT DATE OF EXAM: 04/25/2024 COMPARISON: None HISTORY: Fourth finger pain TECHNIQUE: 2 view right ring finger FINDINGS: No acute fracture or dislocation is evident. Soft tissues are normal. Joint spaces are pres erved. Follow-up exam in 7-10 days from acute trauma for continued pain. IMPRESSION: 1. No acute osseous abnormality left ring finger
== END 2024-04-25 06:12 | disposition home or self-care (01) ==
LOC: EC 00:01
DX: S69.90XA Unspecified injury of unspecified wrist, hand and finger(s), initial encounter (principal); Y04.8XXA Assault by other bodily force, initial encounter
CPT/HCPCS: 99284

== ENCOUNTER 2024-05-01 14:23 | Observation (INO) | payer OTHER ==
--- NOTE | 2024-05-01 15:19 | ED ---
General Adult HPI - General Chief complaint: Seizure Stated complaint: Seizure Time Seen by Provider: 05/01/24 15:00 Source: patient, RN notes reviewed, old records reviewed Mode of arrival: EMS - History of Present Illness Initial comments: 3-year-old male who presents emergency Department complaining that he had a seizure today. Patient brought in by EMS he states he doesn't remember what was going on earlier today but he states he is a heavy drinker he doesn't remember if he drank today. She denies any complaint of pain he denies headache denies neck pain. Patient denies any chest or back pain. Patient denies any abdominal pain patient denies any nausea vomiting diarrhea. Patient states that he is normally on an antiseizure medication but he stopped taking it last year. Patient states she doesn't take because it's been a few months since she's had a seizure. Patient states he believes that the seizures are secondary to alcohol withdrawal. - Related Data Home Medications Medication Instructions Recorded Confirmed Acetaminophen Tab [Tylenol] 650 mg PO DIRECTED PRN 02/21/24 04/15/24 Thiamine [Vitamin B-1] 100 mg PO DIRECTED 02/21/24 04/15/24 amLODIPine [Norvasc] 5 mg PO DIRECTED 02/21/24 04/15/24 Previous Rx's Medication Instructions Recorded Cholestyramine (with Sugar) 4 gm PO BID@1000,1800 3 Days #6 04/18/24 [Questran Packet] packet Famotidine [Pepcid] 20 mg PO BID 15 Days #30 tablet 04/18/24 Multivitamins, Thera [Multivitamin 1 each PO DAILY #30 tab 04/18/24 (formulary)] diphenhydrAMINE [Benadryl] 25 mg PO TID PRN 5 Days #15 cap 04/18/24 Allergies Allergy/AdvReac Type Severity Reaction Status Date / Time No Known Allergies Allergy Verified 05/01/24 14:34 Review of Systems ROS Statement: Those systems with pertinent positive or pertinent negative responses have been documented in the HPI. ROS Other: All systems not noted in ROS Statement are negative. Past Medical History Past Medical History: Hypertension, Pneumonia, Seizure Disorder Additional Past Medical History / Comment(s): ETOH History of Any Multi-Drug Resistant Organisms: None Reported Past Surgical History: Joint Replacement, Orthopedic Surgery Additional Past Surgical History / Comment(s): Right leg. surgery, left leg incision and drainage for spider bite, jaw surgery 2018 Past Anesthesia/Blood Transfusion Reactions: No Reported Reaction Past Psychological History: Anxiety Smoking Status: Former smoker Past Alcohol Use History: Abuse, Daily, Heavy Past Drug Use History: None Reported - Past Family History Sister(s) Family Medical History: Diabetes Mellitus Mother Family Medical History: Diabetes Mellitus Additional Family Medical History / Comment(s): from sudhakar johnsons syndrome Father Family Medical History: Diabetes Mellitus, Myocardial Infarction ([place]) Additional Family Medical History / Comment(s): from dm complications General Exam - General Exam Comments Initial Comments: GENERAL: Patient is well-developed and well-nourished. Patient is nontoxic and well- hydrated and is in no acute distress. ENT: Neck is soft and supple. No significant lymphadenopathy is noted. Oropharynx is clear. Moist mucous membranes. Neck has full range of motion without eliciting any pain. Patient has an abrasion on his lower lip and bilateral lateral tongue EYES: The sclera were anicteric and conjunctiva were pink and moist. Extraocular movements were intact and pupils were equal round and reactive to light. Eyelids were unremarkable. PULMONARY: Unlabored respirations. Good breath sounds bilaterally. No audible rales rhonchi or wheezing was noted. CARDIOVASCULAR: There is a regular rate and rhythm without any murmurs gallops or rubs. ABDOMEN: Soft and nontender with normal bowel sounds. SKIN: Skin is clear with no lesions or rashes and otherwise unremarkable. NEUROLOGIC: Patient is alert and oriented x3. Cranial nerves II through XII are grossly intact. Motor and sensory are also intact. Normal speech, volume and content. Symmetrical smile. intact. MUSCULOSKELETAL: Normal extremities with adequate strength and full range of motion. LYMPHATICS: No significant lymphadenopathy is noted PSYCHIATRIC: Normal psychiatric evaluation. Course Vital Signs 05/01/24 14:31 Temperature 99.1 F Pulse Rate 117 H Respiratory 18 Rate Blood Pressure 143/90 O2 Sat by Pulse 98 Oximetry Medical Decision Making - Medical Decision Making Was pt. sent in by a medical professional or institution (, PA, CAMERA TECHNICIAN, urgent care, hospital, or residential...) When possible be specific @ -No Did you speak to anyone other than the patient for history (EMS, parent, family, police, friend...)? What history was obtained from this source @ -Patient was postictal on arrival and EMS gave all the history. Did you review nursing and triage notes (agree or disagree)? Why? @ -I reviewed and agree with nursing and triage notes Were old charts reviewed (outside hosp., previous admission, EMS record, old EKG, old radiological studies, urgent care reports/EKG's, residential records)? Report findings @ -I reviewed prior admissions for this patient he has been here many times in the past for alcohol abuse Differential Diagnosis? @ -Differential Seizure: Recurrent seizure disorder, febrile seizure, alcohol withdrawal, stimulants, meningitis, encephalitis, intercranial hemorrhage, intracranial tumor, stroke, eclampsia, thyrotoxicosis, hypocalcemia, hyponatremia, hypernatremia, hypomagnesemia, psychogenic, this is not meant to be an all-inclusive list. EKG interpreted by me (3pts min.). @ -As above X-rays interpreted by me (1pt min.). @ -None done CT interpreted by me (1pt min.). @ -None done U/S interpreted by me (1pt. min.). @ -None done What testing was considered but not performed or refused? (CT, X-rays, U/S, labs)? Why? @ -None What meds were considered but not given or refused? Why? @ -None Did you discuss the management of the patient with other professionals (professionals i.e. , PA, CAMERA TECHNICIAN, lab, RT, psych nurse, director social, new business clerk, teacher, privacy officer, mental health case manager)? Give summary @ -I spoke with Dr. Cho and he agreed the patient should be kept in the hospital because he is probably having withdrawal seizures. Was smoking cessation discussed for >3mins.? @ -No Was critical care preformed (if so, how long)? @ -No Were there social determinants of health that impacted care today? How? (Homelessness, low income, unemployed, alcoholism, drug addiction, transportation, low edu. Level, literacy, decrease access to med. care, long term, rehab)? @ -No Was there de-escalation of care discussed even if they declined (Discuss DNR or withdrawal of care, Hospice)? DNR status @ -No What co-morbidities impacted this encounter? (DM, HTN, Smoking, COPD, CAD, Cancer, CVA, ARF, Chemo, Hep., AIDS, mental health diagnosis, sleep apnea, morbid obesity)? @ -None Was patient admitted / discharged? Hospital course, mention meds given and route, prescriptions, significant lab abnormalities, going to OR and other pertinent info. @ -Patient was cooperative throughout his stay he had no alcohol on board and Dr. Cho did want to keep him in the hospital to watch him because he was having probable withdrawal seizures Undiagnosed new problem with uncertain prognosis? @ -No Drug Therapy requiring intensive monitoring for toxicity (Heparin, Nitro, Insulin, Cardizem)? @ -No Were any procedures done? @ -No Diagnosis/symptom? @ -alcohol withdrawal seizures Acute, or Chronic, or Acute on Chronic? @ -Acute Uncomplicated (without systemic symptoms) or Complicated (systemic symptoms)? @ -Complicated Side effects of treatment? @ -No Exacerbation, Progression, or Severe Exacerbation? @ -No Poses a threat to life or bodily function? How? (Chest pain, [place], [place], pneumonia, PE, COPD, DKA, ARF, appy, cholecystitis, CVA, Diverticulitis, Homicidal, Suicidal, threat to staff... and all critical care pts) @ -Yes this can lead to more seizures and possible - Lab Data Result diagrams: 05/01/24 15:37 05/01/24 15:37 Lab Results 05/01/24 05/01/24 Range/Units 15:37 15:37 WBC 4.7 (3.8-10.6) k/uL RBC 3.68 L (4.30-5.90) m/uL Hgb 11.4 L (13.0-17.5) gm/dL Hct 36.7 L (39.0-53.0) % MCV 99.7 (80.0-100.0) fL MCH 30.9 (25.0-35.0) pg MCHC 31.0 (31.0-37.0) g/dL RDW 15.6 H (11.5-15.5) % Plt Count 117 L (150-450) k/uL MPV 8.8 Neutrophils % 84 % Lymphocytes % 9 % Monocytes % 4 % Eosinophils % 2 % Basophils % 0 % Neutrophils # 3.9 (1.3-7.7) k/uL Lymphocytes # 0.4 L (1.0-4.8) k/uL Monocytes # 0.2 (0-1.0) k/uL Eosinophils # 0.1 (0-0.7) k/uL Basophils # 0.0 (0-0.2) k/uL Hypochromasia Marked Macrocytosis Slight Sodium 138 (137-145) mmol/L Potassium 4.5 (3.5-5.1) mmol/L Chloride 115 H (98-107) mmol/L Carbon Dioxide 14 L (22-30) mmol/L Anion Gap 9 mmol/L BUN 2 L (9-20) mg/dL Creatinine 0.57 L (0.66-1.25) mg/dL Est GFR (CKD-EPI)AfAm >90 (>60 ml/min/1.73 sqM) Est GFR (CKD-EPI)NonAf >90 (>60 ml/min/1.73 sqM) Glucose 87 (74-99) mg/dL Calcium 7.3 L (8.4-10.2) mg/dL Magnesium 1.5 L (1.6-2.3) mg/dL Total Bilirubin 2.2 H (0.2-1.3) mg/dL AST 172 H (17-59) U/L ALT 54 H (4-49) U/L Alkaline Phosphatase 155 H (38-126) U/L Total Protein 7.3 (6.3-8.2) g/dL Albumin 3.6 (3.5-5.0) g/dL Serum Alcohol <10 mg/dL Disposition Clinical Impression: Alcohol withdrawal seizure Disposition: ADMITTED IP TO THIS HOSP Referrals: Luis Cho MD [Primary Care Provider] - 1-2 days Forms: AA Meetings Dist 22 & 24 - [facility], Outpatient Counseling, Inp Substance Abuse Facilities, Personal Career Development Counselor Time of Disposition: 18:55
[2024-05-01] MEDS: SODIUM CHLORIDE 0.9% 500 ML 500 ML IV ONE (15:48)
[2024-05-01] MEDS: SODIUM CHLORIDE 0.9% 1,000 ML IV ONE ×2 (15:48→20:55)
[2024-05-01 15:50] LABS: Basophils % (A) 0 %; Eosinophils # (A) 0.1 k/uL (0-0.7); Eosinophils % (A) 2 %; HCT 36.7 % (39.0-53.0); HGB 11.4 gm/dL (13.0-17.5); Hypochromasia Marked; Lymphocytes # (A) 0.4 k/uL (1.0-4.8); Lymphocytes % (A) 9 %; MCH 30.9 pg (25.0-35.0); MCV 99.7 fL (80.0-100.0); Macrocytosis Slight; Mean Platelet Volume 8.8; Monocytes # (A) 0.2 k/uL (0-1.0); Monocytes % (A) 4 %; Neutrophils # (A) 3.9 k/uL (1.3-7.7); Neutrophils % (A) 84 %; Platelet Count 117 k/uL (150-450); RBC 3.68 m/uL (4.30-5.90); RDW 15.6 % (11.5-15.5); WBC 4.7 k/uL (3.8-10.6)
[2024-05-01 16:00] LABS: ALT 54 U/L (4-49); African American GFR (CKD) >90 (>60 ml/min/1.73 sqM); Alcohol <10 mg/dL; Anion Gap 9 mmol/L; Blood Urea Nitrogen 2 mg/dL (9-20); Calcium 7.3 mg/dL (8.4-10.2); Carbon Dioxide 14 mmol/L (22-30); Chloride 115 mmol/L (98-107); Glucose 87 mg/dL (74-99); Non-African American GFR(CKD) >90 (>60 ml/min/1.73 sqM); Sodium 138 mmol/L (137-145); Total Bilirubin 2.2 mg/dL (0.2-1.3)
[2024-05-01 16:36] LABS: AST 172 U/L (17-59); Albumin 3.6 g/dL (3.5-5.0); Potassium 4.5 mmol/L (3.5-5.1); Total Protein 7.3 g/dL (6.3-8.2)
[2024-05-01 16:37] LABS: Alkaline Phosphatase 155 U/L (38-126); Magnesium 1.5 mg/dL (1.6-2.3)
[2024-05-01] MEDS: MAGNESIUM SULFATE-D5W PMX 1 GM in DEXTROSE/WATER 1 100ML.BAG IVPB ONE (18:32)
[2024-05-01] MEDS ORDERED: LORazepam 2 MG/ML INJ IV PRN (18:56)
[2024-05-01] MEDS ORDERED: LORazepam 0.5 MG TAB PO PRN (18:56)
[2024-05-01] MEDS: THIAMINE 100 MG/ML 2 ML VIAL IM STA (20:52)
[2024-05-02] MEDS: LORazepam 2 MG/ML INJ IV PRN ×2 (00:25)
[2024-05-02 00:36] LABS: Glucose,Whole Blood 120 mg/dL (70-110)
[2024-05-02] MEDS: levETIRAcetam IV 500 MG/5 ML VIAL IVP STA (01:24)
[2024-05-02] MEDS: DIVALPROEX ER 250 MG TAB.ER.24H PO STA (01:24)
[2024-05-02] MEDS: LORazepam 1 MG TAB PO PRN (08:01)
[2024-05-02] MEDS: ACETAMINOPHEN TAB 325 MG TAB PO PRN (08:02)
[2024-05-02] MEDS: THIAMINE 100 MG TAB PO SCH (08:02)
[2024-05-02] MEDS: MULTIVITAMINS, THERA 1 EACH TAB PO SCH (08:02)
[2024-05-02] MEDS: FOLIC ACID 1 MG TAB PO SCH (08:02)
[2024-05-02 10:16] LABS: Basophils % (A) 0 %; Eosinophils % (A) 0 %; HCT 37.6 % (39.0-53.0); HGB 11.9 gm/dL (13.0-17.5); Lymphocytes # (A) 1.2 k/uL (1.0-4.8); Lymphocytes % (A) 15 %; MCH 30.5 pg (25.0-35.0); MCHC 31.6 g/dL (31.0-37.0); MCV 96.6 fL (80.0-100.0); Mean Platelet Volume 9.6; Monocytes # (A) 0.7 k/uL (0-1.0); Monocytes % (A) 8 %; Neutrophils # (A) 6.4 k/uL (1.3-7.7); Neutrophils % (A) 75 %; Platelet Count 158 k/uL (150-450); RBC 3.89 m/uL (4.30-5.90); RDW 15.5 % (11.5-15.5); WBC 8.6 k/uL (3.8-10.6)
[2024-05-02 10:31] LABS: ALT 54 U/L (4-49); AST 135 U/L (17-59); African American GFR (CKD) >90 (>60 ml/min/1.73 sqM); Albumin 3.8 g/dL (3.5-5.0); Alkaline Phosphatase 109 U/L (38-126); Anion Gap 5 mmol/L; Blood Urea Nitrogen <2 mg/dL (9-20); Carbon Dioxide 22 mmol/L (22-30); Chloride 105 mmol/L (98-107); Glucose 111 mg/dL (74-99); Non-African American GFR(CKD) >90 (>60 ml/min/1.73 sqM); Potassium 3.7 mmol/L (3.5-5.1); Sodium 132 mmol/L (137-145); Total Bilirubin 2.5 mg/dL (0.2-1.3); Total Protein 7.8 g/dL (6.3-8.2)
[2024-05-02] MEDS ORDERED: Potassium Replacement Protocol 1 EACH MISC MISCELLANE PRN (10:42)
[2024-05-02] MEDS: POTASSIUM CHLORIDE ER 20 MEQ TAB.ER PO SCH (11:12)
[2024-05-02] MEDS: IBUPROFEN 400 MG TAB PO PRN (11:55)
[2024-05-02] MEDS: SODIUM CHLORIDE 0.9% 1,000 ML IV SCH (11:56)
--- NOTE | 2024-05-02 12:53 | P.CNNES ---
History of Present Illness Consult date: 05/02/24 Requesting physician: Daisha Zapata Reason for Consult: seizures History of Present Illness: This is a 43-year-old gentleman with history of significant alcohol use, alcohol intoxication on multiple admission, alcohol withdrawal seizure who presents to the emergency department because of seizure. Patient states he drinks heavily on a daily basis and he feels his last drink was possibly once today and he presents our facility on 05/01/2024 because seizure-like activity. Patient states he had a total of 2 seizures yesterday and overnight and he bit his tongue and does not recall the episode. He just decided to not drink alcohol since this past Saturday. He states he had a total of 6 seizures in his lifeti me and out during adult and that happens only when he stops drinking alcohol. Denies any history of seizures as a childhood. Denies being on any antiepileptic drugs. Does not recall seeing a neurologist as an outpatient. Again as stated earlier he drinks heavily on a daily basis until he gets in toxicated and he states he goes from 1 house to another and currently he is residing with his uncle. On reviewing his prior alcohol level it has been in the range of 200s to 500s but predominantly in the 400 range on numerous prior visits. Some of the workup during this hospital visit consisted of: Next AST on presentation is 172 ALT is 154. Sodium, glucose are within normal limits Initial calcium 7 point 3 repeat is 9.0 Magnesium is 1.5. Alcohol level is less than 10. Review of Systems The positive and negative as per HPI. Past Medical History Past Medical History: Hypertension, Pneumonia, Seizure Disorder Additional Past Medical History / Comment(s): ETOH History of Any Multi-Drug Resistant Organisms: None Reported Past Surgical History: Joint Replacement, Orthopedic Surgery Additional Past Surgical History / Comment(s): Right leg. surgery, left leg incision and drainage for spider bite, jaw surgery 2018 Past Anesthesia/Blood Transfusion Reactions: No Reported Reaction Past Psychological History: Anxiety Smoking Status: Former smoker Past Alcohol Use History: Abuse, Daily, Heavy Additional Past Alcohol Use History / Comment(s): drinks 5-6 tall boys a day, sometimes more Past Drug Use History: None Reported - Past Family History Sister(s) Family Medical History: Diabetes Mellitus Mother Family Medical History: Diabetes Mellitus Additional Family Medical History / Comment(s): from sudhakar johnsons syndrome Father Family Medical History: Diabetes Mellitus, Myocardial Infarction ([place]) Additional Family Medical History / Comment(s): from dm complications Medications and Allergies Home Medications Medication Instructions Recorded Confirmed Type No Known Home Medications 05/01/24 05/01/24 History Allergies Allergy/AdvReac Type Severity Reaction Status Date / Time No Known Allergies Allergy Verified 05/01/24 19:40 Physical Examination - Vital Signs Vital Signs: Vital Signs Temp Pulse Pulse Resp BP BP Pulse Ox 05/02/24 11:21 101.4 F H 106 H 05/02/24 08:46 101.5 F H 128 H 05/02/24 08:00 121 H 05/02/24 07:25 101.1 F H 121 H 18 138/80 93 L 05/02/24 01:53 99.2 F 87 16 145/95 95 05/02/24 00:43 98 F 151 H 22 160/92 94 L 05/01/24 21:55 109 H 05/01/24 21:50 100.2 F H 109 H 18 151/80 97 05/01/24 20:00 105 H 20 145/94 99 05/01/24 14:31 99.1 F 117 H 18 143/90 98 Intake and Output 05/01/24 05/02/24 05/02/24 22:59 06:59 14:59 Output Total 150 Balance -150 Output: Urine 150 Other: Voiding Method Urinal Weight 72.575 kg GENERAL: The patient is lying in bed and is not in acute distress. Extremities: Having pain in the left wrist and right gene. NEUROLOGICAL: Higher mental function: The patient is awake, alert, oriented to self, place and time. Patient is following commands. No aphasia and no neglect. Cranial nerves: The pupils are round, equal and reactive to light and accommodation. Visual ccohran are full to confrontation throughout. Extraocular movement is intact no nystagmus is noted. Facial sensation is normal to touch throughout. The facial strength is normal throughout. Hearing is normal bilaterally to hand rub. Tongue is midline and moved [id number] without any difficulty. No dysarthria is noted. Shoulder shrug is normal bilaterally. Motor: The strength is somewhat limited in left wrist and right ankle because of pain. Otherwise 5 over 5 throughout. Normal tone and bulk. Cerebellum: Normal finger to nose heel to chin bilaterally. Sensation: Sensation is normal to touch throughout. Reflexes (right/left): 2+ throughout. Plantars are downgoing bilaterally. Results - Laboratory Findings CBC and BMP: 05/02/24 08:00 05/02/24 08:00 Abnormal Lab Findings: Abnormal Labs 05/01/24 05/01/24 05/02/24 15:37 15:37 00:35 RBC 3.68 L Hgb 11.4 L Hct 36.7 L RDW 15.6 H Plt Count 117 L Lymphocytes # 0.4 L Sodium Chloride 115 H Carbon Dioxide 14 L BUN 2 L Creatinine 0.57 L Glucose POC Glucose (mg/dL) 120 H Calcium 7.3 L Magnesium 1.5 L Total Bilirubin 2.2 H AST 172 H ALT 54 H Alkaline Phosphatase 155 H 05/02/24 05/02/24 08:00 08:00 RBC 3.89 L Hgb 11.9 L Hct 37.6 L RDW Plt Count Lymphocytes # Sodium 132 L Chloride Carbon Dioxide BUN <2 L Creatinine Glucose 111 H POC Glucose (mg/dL) Calcium Magnesium Total Bilirubin 2.5 H AST 135 H ALT 54 H Alkaline Phosphatase Assessment and Plan Assessment: This is a 43-year-old gentleman with history of significant alcohol use/alcohol intoxication who has alcohol level in the past from 200-500's, alcohol withdrawal seizure who presents because of seizure-like activity and last drink was this past Saturday. His alcohol level on presentation was <10. Breakthrough Seizure: Provoked due to Alcohol withdrawal seizure and some component to electrolyte derangement (hypomagnesemia) History of seizure and all his episodes were due to alcohol withdrawal Hypomagnesemia Transaminitis AST more than ALT his alcohol use History of alcohol intoxication on numerous hospital visits in the past ranging from 200-500 but predominantly in the 400 range. Plan: I ordered a CT of the head Ordered routine EEG Patient is in agreement of not being started on antiepileptic drugs since this seems more alcohol withdrawal. But if he continues to have seizure then recommend start him on Keppra 500 mg twice daily. Patient was given Keppra 1500 mg once in the ED. He was also given Depakote 250 mg once by the ED team. Patient is on thiamine 100 mg daily. He is on folic acid 1 mg daily seizure precaution and pads. Is on [facility] protocol. Patient was counseled on alcohol cessation and he is in agreement of seeking help Per the [facility] because of the seizure, to avoid driving for 6 months until seizure-free, avoid heights, avoid swimming assisted or using heavy machinery On discharge recommend the patient to follow-up with a neurologist as an outpatient within 2 to 3 weeks Will defer the rest of the medical management the primary team The plan is discussed with patient and his nurse. Thank you for the consultation. Time with Patient: Greater than 30
--- NOTE | 2024-05-02 14:22 | CT ---
EXAMINATION TYPE: CT brain wo con CT DLP: 1230 mGycm, Automated exposure control for dose reduction was used. DATE OF EXAM: 05/02/2024 1:59 PM COMPARISON: 03/09/2024. CLINICAL INDICATION:Male, 43 years old with history of seizure, seizure activity TECHNIQUE: Brain: Axial CT images of the brain were obtained with coronal and sagittal reformats created and rev iewed. Contrast used: None. Oral contrast used: None. FINDINGS: Brain: Extra-axial spaces: No abnormal extra-axial fluid collections. Ventricular system: Within normal limits Cerebral parenchyma: No acute intraparenchymal hemorrhage or mass effect. The bailey-white junction is well differentiated. Cerebellum: Unremarkable. Mass effect: No evidence of midline shift. Intracranial vasculature: unremarkable Soft tissues: Normal. Calvarium/osseous structures: No depressed skull fracture. Incomplete fusion of the anterior arch of C1 Paranasal sinuses and mastoid air cells: Mild scattered paranasal sinus disease. Visualized orbits: Orbital contents are intact. IMPRESSION: No acute intracranial process.
[2024-05-02 18:48] LABS: Basophils % (A) 0 %; Eosinophils # (A) 0.1 k/uL (0-0.7); Eosinophils % (A) 1 %; HGB 13.6 gm/dL (13.0-17.5); Hypochromasia Marked; Lymphocytes # (A) 1.6 k/uL (1.0-4.8); Lymphocytes % (A) 21 %; MCH 30.2 pg (25.0-35.0); MCHC 30.3 g/dL (31.0-37.0); MCV 99.8 fL (80.0-100.0); Macrocytosis Slight; Mean Platelet Volume 9.9; Monocytes # (A) 0.4 k/uL (0-1.0); Monocytes % (A) 5 %; Neutrophils # (A) 5.3 k/uL (1.3-7.7); Neutrophils % (A) 71 %; Platelet Count 160 k/uL (150-450); RDW 15.3 % (11.5-15.5); WBC 7.5 k/uL (3.8-10.6)
--- NOTE | 2024-05-02 20:15 | XR ---
EXAMINATION TYPE: XR chest 1V DATE OF EXAM: 05/02/2024 8:05 PM CLINICAL INDICATION:Male, 43 years old with history of FUO; COMPARISON: Chest radiographs from 02/12/2024 TECHNIQUE: XR chest 1V Frontal view of the chest. FINDINGS: Lungs/Pleura: There is no evidence of pleural effusion, focal consolidation, or pneumothorax. Pulmonary vascularity: Unremarkable. Heart/mediastinum: Cardiomediastinal silhouette is unremarkable. Musculoskeletal: No acute osseous pathology. IMPRESSION: No acute cardiopulmonary disease/process.
--- NOTE | 2024-05-03 11:35 | P.PN ---
Subjective Progress Note Date: 05/03/24 I am following up with the patient and no further seizures. Denies new neurological issues. Objective - Vital Signs Vital signs: Vital Signs Temp 99.3 F 05/03/24 08:00 Pulse 97 05/03/24 08:00 Resp 17 05/03/24 08:00 BP 153/93 05/03/24 08:00 Pulse Ox 98 05/03/24 08:00 FiO2 Intake & Output 05/02/24 05/03/24 05/03/24 18:59 06:59 18:59 Intake Total 570 560 Output Total 1650 1600 150 Balance -1080 -1040 -150 Intake: Oral 570 560 Output: Urine 1650 1600 150 Other: Voiding Method Urinal Toilet Toilet Urinal Urinal # Bowel Movements 1 - Exam GENERAL: The patient is lying in bed and is not in acute distress. Extremities: Having pain in the left wrist and right gene. NEUROLOGICAL: Higher mental function: The patient is awake, alert, oriented to self, place and time. Patient is following commands. No aphasia and no neglect. Cranial nerves: The pupils are round, equal and reactive to light and accommodation. Visual cochran are full to confrontation throughout. Extraocular movement is intact no nystagmus is noted. Facial sensation is normal to touch throughout. The facial strength is normal throughout. Hearing is normal bilaterally to hand rub. Tongue is midline and moved [id number] without any difficulty. No dysarthria is noted. Shoulder shrug is normal bilaterally. Motor: The strength is somewhat limited in left wrist and right ankle because of pain. Otherwise 5 over 5 throughout. Normal tone and bulk. Cerebellum: Normal finger to nose heel to chin bilaterally. Sensation: Sensation is normal to touch throughout. Reflexes (right/left): 2+ throughout. Plantars are downgoing bilaterally. Some of the workup during this hospital visit consisted of: AST on presentation is 172 ALT is 154. Sodium, glucose are within normal limits Initial calcium 7 point 3 repeat is 9.0 Magnesium is 1.5. Alcohol level is less than 10. CT of the head is reported as no acute intracranial process. I reviewed the CT and agree with the report. - Labs CBC & Chem 7: 05/02/24 18:29 05/02/24 08:00 Labs: Abnormal Lab Results - Last 24 Hours (Table) 07/20/24 Range/Units 18:29 MCHC 30.3 L (31.0-37.0) g/dL Assessment and Plan Assessment: This is a 43-year-old gentleman with history of significant alcohol use/alcohol intoxication who has alcohol level in the past from 200-500's, alcohol withdrawal seizure who presents because of seizure-like activity and last drink was this past Saturday. His alcohol level on presentation was <10. Breakthrough Seizure: Provoked due to Alcohol withdrawal seizure and some component to electrolyte derangement (hypomagnesemia)--no further seizures in past 24 hours. History of seizure and all his episodes were due to alcohol withdrawal Hypomagnesemia Transaminitis AST more than ALT his alcohol use History of alcohol intoxication on numerous hospital visits in the past ranging from 200-500 but predominantly in the 400 range. Plan: Pending routine EEG Patient is in agreement of not being started on antiepileptic drugs since this seems more alcohol withdrawal. But if he continues to have seizure then recommend start him on Keppra 500 mg twice daily. Patient was given Keppra 1500 mg once in the ED. He was also given Depakote 250 mg once by the ED team. Patient is on thiamine 100 mg daily. He is on folic acid 1 mg daily seizure precaution and pads. Is on [facility] protocol. Patient was counseled on alcohol cessation and he is in agreement of seeking help Per the [place] [facility] because of the seizure, to avoid driving for 6 months until seizure-free, avoid heights, avoid swimming assisted or using heavy machinery On discharge recommend the patient to follow-up with a neurologist as an outpatient within 2 to 3 weeks Will defer the rest of the medical management the primary team The plan is discussed with patient and his nurse. If EEG is negative for seizure or discharge, then no further neurological work- up. Dr. Young will resume neurology service tomorrow if needed. Time with Patient: Less than 30
[2024-05-03] MEDS: cloNIDine HCL 0.2 MG TAB PO SCH (14:40)
--- NOTE | 2024-05-03 23:04 | PN ---
PROGRESS NOTE DATE OF SERVICE: 05/02/2024 CHIEF COMPLAINT: Grand mal seizure. HISTORY OF PRESENT ILLNESS: This gentleman is doing fairly well. He is not having any difficulty in DTs. He is not vomiting. He has had no seizure activity. PHYSICAL EXAMINATION: CHEST: Clear. CARDIAC: Normal. ABDOMEN: Soft. NEUROLOGIC: He is awake and alert. IMPRESSION: 1. Alcohol withdrawal seizure. 2. Hypertension. PLAN: Increase activity and diet. MMODL / IJN: [id number] /
--- NOTE | 2024-05-03 23:19 | PN ---
PROGRESS NOTE DATE OF SERVICE: 05/03/2024 CHIEF COMPLAINT: Grand mal alcohol-withdrawal seizure. HISTORY OF PRESENT ILLNESS: This gentleman is still feeling dizzy. He has had no further seizures. His blood pressure has elevated, however. PHYSICAL EXAMINATION: CHEST: Clear. CARDIAC: Normal. ABDOMEN: Soft, nontender. IMPRESSION: 1. Chronic alcoholism. 2. Alcohol withdrawal seizure. 3. Hypertension. PLAN: Add Catapres 0.2 mg q.i.d. MMODL / IJN: [id number] /
--- NOTE | 2024-05-04 00:55 | HP ---
HISTORY AND PHYSICAL CHIEF COMPLAINT: Grand mal seizure. HISTORY OF PRESENT ILLNESS: This is another of many admissions of late for this 43-year-old male, chronic alcoholic. He comes into the hospital frequently with alcohol toxicity. This time he came to the emergency room after he apparently had a grand mal seizure. His alcohol level was 0 and he had not had anything to drink for 2 to 3 days. REVIEW OF SYSTEMS: He denies any headaches, injuries to the tongue, mouth, or lips. He has had no abdominal pain or chest pain. Past medical history, family history, and personal and social histories are all otherwise unremarkable and noncontributory and unchanged from his many recent admission and discharge summaries. PHYSICAL EXAMINATION: VITAL SIGNS: Normal. HEAD, EARS, EYES, NOSE, MOUTH AND THROAT: Normal. There was no evidence of any trauma. NECK: Supple. CHEST: Clear. CARDIAC: Normal. ABDOMEN: Soft, nontender. EXTREMITIES: Normal. NEUROLOGICAL: He is slightly lethargic, but otherwise intact. IMPRESSION: 1. Alcohol withdrawal seizure. 2. Chronic alcoholism. PLAN: 1. Bed rest. 2. IV fluids. 3. Seizure precautions. 4. Anticonvulsants. MMODL / IJN: [id number] /
[2024-05-04 06:48] VITALS: RESP 16
--- NOTE | 2024-05-04 12:39 | EEG ---
ELECTROENCEPHALOGRAM REPORT PREAMBLE: This is a 43-year-old male, who came to the hospital because of seizure. The patient had acute alcohol intoxication on multiple admissions, alcohol withdrawal seizures. The patient states he drinks heavily on a daily basis. The patient drinks 5 to 6 tallboys a day. CURRENT MEDICATIONS: 1. Catapres. 2. Ativan. 3. Theragran. 4. Vitamin B1. EEG FINDINGS: This is a 21-channel digital EEG recorded with video component, utilizing 10/20 international system with referential and bipolar montages. Background consists of somewhat suppressed low amplitude activity with some low-voltage fast frequency beta activity seen in bihemispheric region. Background does not seem to be clearly reactive to eye opening or closing. Different stages of sleep were not seen. Photic stimulation and hyperventilation were not performed. No focal or generalized epileptiform activity was seen. IMPRESSION: This is an abnormal EEG due to slightly suppressed background, with low-voltage fast frequency beta activity suggestive of benzodiazepine effect. No focal, lateralized, or epileptiform activity was seen. MMGURUL / LILLIEN: [id number] /
[2024-05-04 12:46] VITALS: BP 155/92; PULSE 72; TEMP 98.7
[2024-05-04] MEDS: COLCHICINE 0.6 MG EACH PO SCH (15:43)
--- NOTE | 2024-05-05 10:14 | P.PN ---
Subjective Progress Note Date: 05/04/24 Patient was initially seen better Sherman Sifuentes. Please refer to his note for detail. Patient is a 43-year-old male with history of numerous admissions for alcohol intoxication, who presents because of alcohol withdrawal seizure. Patient's blood alcohol level was less than 10. Dr. Sifuentes did not start seizure medication because it was from alcohol withdrawal. Patient at present is feeling fine. He wants to go home. No seizures since he arrived to the floor. Denies headache. Some of the workup during this hospital visit consisted of: AST on presentation is 172 ALT is 154. Sodium, glucose are within normal limits Initial calcium 7 point 3 repeat is 9.0 Magnesium is 1.5. Alcohol level is less than 10. CT of the head is reported as no acute intracranial process. I reviewed the CT and agree with the report. Objective - Vital Signs Vital signs: Vital Signs Temp 98.7 F 05/04/24 12:45 Pulse 72 05/04/24 12:45 Resp 16 05/04/24 12:45 BP 155/92 05/04/24 12:45 Pulse Ox 99 05/04/24 12:45 FiO2 Intake & Output 05/03/24 05/04/24 05/04/24 18:59 06:59 18:59 Intake Total 1080 480 Output Total 1650 1500 Balance -570 -1500 480 Intake: Oral 1080 480 Output: Urine 1650 1500 Other: Voiding Method Toilet Toilet Urinal Urinal # Voids 0 # Bowel Movements 2 1 - Exam Patient's mentation, speech and language functions are normal. Cranial nerves are normal. Muscle strength is normal. Sensory touch is equal. No ataxia. Gait appears normal. - Labs CBC & Chem 7: 05/02/24 18:29 05/02/24 08:00 Labs: Microbiology - Last 24 Hours (Table) 05/02/24 23:05 Urine Culture - Final Urine,Voided 05/02/24 18:34 Blood Culture - Preliminary Blood 05/02/24 08:00 Blood Culture - Preliminary Blood Assessment and Plan Assessment: This is a 43-year-old gentleman with history of significant alcohol use/alcohol intoxication who has alcohol level in the past from 200-500's, alcohol withdrawal seizure who presents because of seizure-like activity and last drink was this past Saturday. His alcohol level on presentation was <10. Breakthrough Seizure: Provoked due to Alcohol withdrawal seizure and some component to electrolyte derangement (hypomagnesemia)--no further seizures in past 48 hours. History of seizure and all his episodes were due to alcohol withdrawal Hypomagnesemia Transaminitis AST more than ALT his alcohol use History of alcohol intoxication on numerous hospital visits in the past ranging from 200-500 but predominantly in the 400 range. Plan: EEG was abnormal EEG due to slightly suppressed background, with low voltage fast frequency beta activity suggestive of benzodiazepine effect. No focal, lateralized or epileptiform activity was seen. Patient is in agreement of not being started on antiepileptic drugs since this seems more alcohol withdrawal. But if he continues to have seizure then recommend start him on Keppra 500 mg twice daily. Patient was given Keppra 1500 mg once in the ED. He was also given Depakote 250 mg once by the ED team. Patient is on thiamine 100 mg daily. He is on folic acid 1 mg daily seizure precaution and pads. Patient was counseled on alcohol cessation and he is in agreement of seeking help Per the [facility] because of the seizure, to avoid driving for 6 months until seizure-free, avoid heights, avoid swimming assisted or using heavy machinery On discharge recommend the patient to follow-up with a neurologist as an outpatient within 2 to 3 weeks Will defer the rest of the medical management the primary team Neurologically clear for discharge.
--- NOTE | 2024-05-07 10:30 | P.DS ---
Providers Date of admission: 05/01/24 18:55 Expected date of discharge: 05/04/24 Attending physician: Luis Cho Consults: 05/02/24 11:34 Consult Physician Routine Consulting Provider: Sherman Sifuentes Consult Reason/Comments: seizures Do you want consulting provider notified?: Yes Primary care physician: Luis Cho Hospital Course: Final diagnosis Alcohol withdrawal seizure History of alcohol abuse, chronic and daily Noncompliance with medications and follow-up History of hypertension Anxiety Former smoker GI prophylaxis DVT prophylaxis Full code Discharge disposition Patient is being discharged in a stable condition with guarded prognosis to home. Patient will follow-up with Dr. Cho in the outpatient setting upon discharge. Patient is to continue with neurology follow-up outpatient as scheduled. Total time taken is greater than 35 minutes. Hospital course This is a 43-year-old male who was recently admitted with alcohol intoxication w ith concerns of a grand mall seizure being closely monitored. Neurology evaluating the patient an EEG although abnormal no epileptiform discharges noted. Patient has not been started on seizure medication most likely alcohol induced. Patient continued on CIWA protocol although not requiring much Ativan and has been instructed to follow-up with primary care provider as well as a neurologist outpatient. Patient is extremely noncompliant and has had multiple ER visits and hospitalizations secondary to this. Patient has no desire to quit drinking. Please refer to neurology note for further HPI. Currently no reports of chest pain, shortness of breath, or palpitations. Patient is afebrile. No reports of nausea or vomiting and patient is tolerating diet. Patient will be discharged home today. Guarded prognosis and high risk for readmissions given patient's continued alcohol abuse and noncompliance. Physical exam: Gen: This is a 43-year-old male who is awake, alert and oriented x 3, well- developed, elderly appearing, unkept HEENT: Head is atraumatic, normocephalic. Pupils equal, round. Sclerae is anicteric. NECK: Supple. No JVD. No lymphadenopathy. No thyromegaly. LUNGS: Clear to auscultation. No wheezes or rhonchi. No intercostal retractions. HEART: Regular rate and rhythm. No murmur. ABDOMEN: Soft. Bowel sounds are present. No masses. No tenderness. EXTREMITIES: No pedal edema. No calf tenderness. NEUROLOGICAL: Patient is awake, alert and oriented x3. Cranial nerves 2 through 12 are grossly intact. Please refer to medication reconciliation sheet for a list of medications. The impression and plan of care has been dictated by Nadia Young, Nurse Practitioner as directed. Dr. Joseph MD I have performed a history and examination and MDM of this patient, discussed the same with the dictator, and agree with the dictator's assessment and plan as written ,documented as a scribe. Based on total visit time, I have performed more than 50% of the visit. Patient Condition at Discharge: Stable Plan - Discharge Summary Discharge Rx Participant: Yes New Discharge Prescriptions: New Colchicine 0.6 mg PO BID #35 tablet Folic Acid 1 mg PO DAILY #30 tab Ibuprofen [Motrin] 400 mg PO Q6HR PRN #30 tab PRN Reason: Pain Multivitamins, Thera [Multivitamin (formulary)] 1 each PO DAILY #30 tab Thiamine [Vitamin B-1] 100 mg PO DAILY #30 tab Acetaminophen Tab [Tylenol] 650 mg PO Q6HR PRN tab PRN Reason: Fever And/ Or Pain cloNIDine HCL [Catapres] 0.1 mg PO BID 30 Days #60 tab Discharge Medication List Acetaminophen Tab [Tylenol] 650 mg PO Q6HR PRN tab 05/04/24 [Rx] Colchicine 0.6 mg PO BID #35 tablet 05/04/24 [Rx] Folic Acid 1 mg PO DAILY #30 tab 05/04/24 [Rx] Ibuprofen [Motrin] 400 mg PO Q6HR PRN #30 tab 05/04/24 [Rx] Multivitamins, Thera [Multivitamin (formulary)] 1 each PO DAILY #30 tab 05/04/24 [Rx] Thiamine [Vitamin B-1] 100 mg PO DAILY #30 tab 05/04/24 [Rx] cloNIDine HCL [Catapres] 0.1 mg PO BID 30 Days #60 tab 05/04/24 [Rx] Follow up Appointment(s)/Referral(s): Luis Cho MD [Primary Care Provider] - 05/07/24 11:30 am (When at hospital follow up please ask doctor to send a refferal for Dr. Leblanc so you can become a patient at that office.) Nay Leblanc MD [Medical Doctor] - 1 Week (This office needs a refferal befor you can become a patient here please ask your primary doctor to give you a refferal.) Activity/Diet/Wound Care/Special Instructions: Activity limited until follow-up Follow-up with primary care provider on discharge Follow-up with neurology outpatient Avoid alcohol intake and exposure Discharge/Stand Alone Forms: AA Meetings Dist 22 [address] 24 - OPH, Outpatient Counseling, Inp Substance Abuse Facilities, [employer] Discharge Disposition: HOME SELF-CARE
== END 2024-05-04 16:50 | disposition home or self-care (01) ==
LOC: EC 14:23 → 5NMEDONC 18:55
PROVIDERS: ADMIT Family Medicine; ATTEND Family Medicine
DX: F10.239 Alcohol dependence with withdrawal, unspecified (principal); G40.909 Epilepsy, unspecified, not intractable, without status epilepticus; F41.9 Anxiety disorder, unspecified; I10 Essential (primary) hypertension; R74.01 Elevation of levels of liver transaminase levels; R94.01 Abnormal electroencephalogram [EEG]; Y90.0 Blood alcohol level of less than 20 mg/100 ml; Z87.891 Personal history of nicotine dependence; Z91.148 Patient's other noncompliance with medication regimen for other reason; Z79.899 Other long term (current) drug therapy
CPT/HCPCS: 96361 ×4; 96365; 96366 ×2; 96375; 96372; 99284; 36415; 95816; 80053 ×2; 83735 ×2; 85025 ×2; 87040; 80320; 87086; 71045; 70450; G0378 ×4; J2060; J3411; J0696 ×3; J3475

== ENCOUNTER 2024-05-06 23:18 | Emergency (ER) | payer OTHER ==
[2024-05-07 00:40] VITALS: RESP 18; TEMP 98.4
--- NOTE | 2024-05-07 01:16 | ED ---
Alcohol HPI - General Chief Complaint: Alcohol Stated Complaint: ETOH Time Seen by Provider: 05/06/24 23:20 Source: EMS, RN notes reviewed, old records reviewed Mode of arrival: EMS - History of Present Illness Initial Comments: QN male to the ER for evaluation today. 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) Previous Visits for Alcohol Intoxication?: Yes Recent Trauma: Yes Associated Symptoms: denies other symptoms Treatments Prior to Arrival: none Chronic Alcohol Use: Yes - Related Data Home Medications Medication Instructions Recorded Confirmed Colchicine See Taper PO DIRECTED 05/07/24 05/07/24 Multivitamins, Thera [Multivitamin 1 tab PO DIRECTED 05/07/24 05/07/24 (formulary)] Thiamine [Vitamin B-1] 100 mg PO DIRECTED 05/07/24 05/07/24 cloNIDine HCL [Catapres] 0.1 mg PO DIRECTED 05/07/24 05/07/24 Previous Rx's Medication Instructions Recorded Acetaminophen Tab [Tylenol] 650 mg PO Q6HR PRN tab 05/04/24 Folic Acid 1 mg PO DAILY #30 tab 05/04/24 Ibuprofen [Motrin] 400 mg PO Q6HR PRN #30 tab 05/04/24 Allergies Allergy/AdvReac Type Severity Reaction Status Date / Time No Known Allergies Allergy Verified 05/07/24 20:13 Review of Systems ROS Statement: Those systems with pertinent positive or pertinent negative responses have been documented in the HPI. ROS Other: All systems not noted in ROS Statement are negative. Past Medical History Past Medical History: Hypertension, Pneumonia, Seizure Disorder Additional Past Medical History / Comment(s): ETOH History of Any Multi-Drug Resistant Organisms: None Reported Past Surgical History: Joint Replacement, Orthopedic Surgery Additional Past Surgical History / Comment(s): Right leg. surgery, left leg incision and drainage for spider bite, jaw surgery 2018 Past Anesthesia/Blood Transfusion Reactions: No Reported Reaction Past Psychological History: Anxiety Smoking Status: Never smoker - Past Family History Sister(s) Family Medical History: Diabetes Mellitus Mother Family Medical History: Diabetes Mellitus Additional Family Medical History / Comment(s): from sudhakar johnsons syndrome Father Family Medical History: Diabetes Mellitus, Myocardial Infarction ([place]) Additional Family Medical History / Comment(s): from dm complications General Exam General appearance: alert, in no apparent distress Head exam: Present: atraumatic, normocephalic, normal inspection Eye exam: Present: normal appearance, PERRL, EOMI. Absent: scleral icterus, conjunctival injection, periorbital swelling ENT exam: Present: normal exam, mucous membranes moist Neck exam: Present: normal inspection. Absent: tenderness, meningismus, lymphadenopathy Respiratory exam: Present: normal lung sounds bilaterally. Absent: respiratory distress, wheezes, rales, rhonchi, stridor Cardiovascular Exam: Present: regular rate, normal rhythm, normal heart sounds. Absent: systolic murmur, diastolic murmur, rubs, gallop, clicks GI/Abdominal exam: Present: soft, normal bowel sounds. Absent: distended, tenderness, guarding, rebound, rigid Extremities exam: Present: normal inspection, full ROM, normal capillary refill. Absent: tenderness, pedal edema, joint swelling, calf tenderness Back exam: Present: normal inspection Neurological exam: Present: alert, oriented X3, CN II-XII intact Psychiatric exam: Present: normal affect, normal mood Skin exam: Present: warm, dry, intact, normal color. Absent: rash Course Vital Signs 05/07/24 05/07/24 00:36 05:07 Temperature 98.4 F Pulse Rate 88 79 Respiratory 18 18 Rate Blood Pressure 90/59 110/60 O2 Sat by Pulse 95 97 Oximetry - Reevaluation(s) Reevaluation #1: 05/07/24 01:16 QN completed by myself Dr Choi Reevaluation #2: 05/07/24 Symptoms improved he has no complaints here in the ER feels well Reevaluation #3: 05/07/24 Informed of results and questions answered Reevaluation #4: 05/07/24 22:47Was pt. sent in by a medical professional or institution (, PA, REPAIR MILLER, urgent care, hospital, or halfway...) When possible be specific @ -no Did you speak to anyone other than the patient for history (EMS, parent, family, police, friend...)? What history was obtained from this source @ -no Did you review nursing and triage notes (agree or disagree)? Why? @ -agree Are old charts reviewed (outside hosp., previous admission, EMS record, old EKG, old radiological studies, urgent care reports/EKG's, halfway records)? Report findings @ -yes Differential Diagnosis (chest pain, altered mental status, abdominal pain women, abdominal pain men, vaginal bleeding, weakness, fever, dyspnea, syncope, headache, dizziness, GI bleed, back pain, seizure, CVA, palpatations, mental health, musculoskeletal)? @ -prior EKG interpreted by me (3pts min.). @ -no X-rays interpreted by me (1pt min.). @ -no CT interpreted by me (1pt min.). @ -no U/S interpreted by me (1pt. min.). @ -no What testing was considered but not performed or refused? (CT, X-rays, U/S, labs)? Why? @ -none What meds were considered but not given or refused? Why? @ -none Did you discuss the management of the patient with other professionals (professionals i.e. , PA, REPAIR MILLER, lab, RT, psych nurse, hospital social worker, classification control clerk, teacher, security officers and guards, case supervisor)? Give summary @ -no Was smoking cessation discussed for >3mins.? @ -no Was critical care preformed (if so, how long)? @ -no Were there social determinants of health that impacted care today? How? (Homelessness, low income, unemployed, alcoholism, drug addiction, transportation, low edu. Level, literacy, decrease access to med. care, detention, rehab)? @ -none Was there de-escalation of care discussed even if they declined (Discuss DNR or withdrawal of care, Hospice)? DNR status @ -no What co-morbidities impacted this encounter? (DM, HTN, Smoking, COPD, CAD, Cancer, CVA, ARF, Chemo, Hep., AIDS, mental health diagnosis, sleep apnea, mo rbid obesity)? @ -none Was patient admitted / discharged? Hospital course, mention meds given and route, prescriptions, significant lab abnormalities, going to OR and other pertinent info. @ - 43 male to ER for alcohol intoxication. Patient can be discharged home Discharge Undiagnosed new problem with uncertain prognosis? @ -no Drug Therapy requiring intensive monitoring for toxicity (Heparin, Nitro, Insulin, Cardizem)? @ -no Were any procedures done? @ -no Diagnosis/symptom? @ -alcohol intoxication Acute, or Chronic, or Acute on Chronic? @ -Acute Uncomplicated (without systemic symptoms) or Complicated (systemic symptoms)? @ -Complicated Side effects of treatment? @ -no Exacerbation, Progression, or Severe Exacerbation? @ -exacerbation Poses a threat to life or bodily function? How? (Chest pain, [place], [place], pneumonia, PE, COPD, DKA, ARF, appy, cholecystitis, CVA, Diverticulitis, Homicidal, Suicidal, threat to staff... and all critical care pts) @ -yes 05/07/24 22:47 Medical Decision Making - Medical Decision Making 43 Male to ER for evaluation, patient presents for alcohol intoxication is in no acute distress and can be discharged home Disposition Clinical Impression: ETOH abuse, Alcoholic intoxication Disposition: HOME SELF-CARE Condition: Fair Instructions (If sedation given, give patient instructions): Alcohol Intoxication (ED) Is patient prescribed a controlled substance at d/c from ED?: No Referrals: Luis Cho MD [Primary Care Provider] - 1-2 days
[2024-05-07 05:09] VITALS: BP 110/60; PULSE 79
== END 2024-05-07 05:15 | disposition home or self-care (01) ==
LOC: EC 23:18
DX: F10.129 Alcohol abuse with intoxication, unspecified (principal); Y90.9 Presence of alcohol in blood, level not specified
CPT/HCPCS: 99284

== ENCOUNTER 2024-05-07 18:17 | Emergency (ER) | payer OTHER ==
[2024-05-07 18:41] VITALS: TEMP 97.7
--- NOTE | 2024-05-07 19:30 | ED ---
Alcohol HPI - General Chief Complaint: Alcohol Stated Complaint: ETOH Time Seen by Provider: 05/07/24 18:59 Source: patient, EMS, RN notes reviewed Mode of arrival: EMS Limitations: no limitations - History of Present Illness Initial Comments: 43-year-old male presents emergency department via EMS complaint alcohol intoxication. Patient well-known to the emergency department has chronic alcohol abuse issues. Patient does complain of his chronic gout pain this is unchanged. He denies any chest pain shortness of breath denies any head injury denies any physical complaints at this time. Patient unclear how much he drank today. - Related Data Home Medications Medication Instructions Recorded Confirmed Colchicine See Taper PO DIRECTED 05/07/24 05/07/24 Multivitamins, Thera [Multivitamin 1 tab PO DIRECTED 05/07/24 05/07/24 (formulary)] Thiamine [Vitamin B-1] 100 mg PO DIRECTED 05/07/24 05/07/24 cloNIDine HCL [Catapres] 0.1 mg PO DIRECTED 05/07/24 05/07/24 Previous Rx's Medication Instructions Recorded Acetaminophen Tab [Tylenol] 650 mg PO Q6HR PRN tab 05/04/24 Folic Acid 1 mg PO DAILY #30 tab 05/04/24 Ibuprofen [Motrin] 400 mg PO Q6HR PRN #30 tab 05/04/24 Allergies Allergy/AdvReac Type Severity Reaction Status Date / Time No Known Allergies Allergy Verified 05/07/24 20:13 Review of Systems ROS Statement: Those systems with pertinent positive or pertinent negative responses have been documented in the HPI. ROS Other: All systems not noted in ROS Statement are negative. Past Medical History Past Medical History: Hypertension, Pneumonia, Seizure Disorder Additional Past Medical History / Comment(s): ETOH History of Any Multi-Drug Resistant Organisms: None Reported Past Surgical History: Joint Replacement, Orthopedic Surgery Additional Past Surgical History / Comment(s): Right leg. surgery, left leg incision and drainage for spider bite, jaw surgery 2018 Past Anesthesia/Blood Transfusion Reactions: No Reported Reaction Past Psychological History: Anxiety Smoking Status: Never smoker Past Alcohol Use History: Abuse, Daily Past Drug Use History: None Reported - Past Family History Sister(s) Family Medical History: Diabetes Mellitus Mother Family Medical History: Diabetes Mellitus Additional Family Medical History / Comment(s): from sudhakar johnsons syndrome Father Family Medical History: Diabetes Mellitus, Myocardial Infarction ([place]) Additional Family Medical History / Comment(s): from dm complications General Exam Limitations: no limitations General appearance: alert, in no apparent distress Head exam: Present: atraumatic, normocephalic, normal inspection Eye exam: Present: normal appearance, PERRL, EOMI. Absent: scleral icterus, conjunctival injection, periorbital swelling ENT exam: Present: normal exam, mucous membranes moist Neck exam: Present: normal inspection, full ROM. Absent: tenderness, meningismus, lymphadenopathy Respiratory exam: Present: normal lung sounds bilaterally. Absent: respiratory distress, wheezes, rales, rhonchi, stridor Cardiovascular Exam: Present: regular rate, normal rhythm, normal heart sounds. Absent: systolic murmur, diastolic murmur, rubs, gallop, clicks Neurological exam: Present: alert Course Vital Signs 05/07/24 05/07/24 18:35 20:53 Temperature 97.7 F Pulse Rate 100 90 Respiratory 18 16 Rate Blood Pressure 131/94 107/74 O2 Sat by Pulse 98 94 L Oximetry Medical Decision Making - Medical Decision Making Was pt. sent in by a medical professional or institution (, PA, APPLICATION SUPPORT ENGINEER, urgent care, hospital, or halfway...) When possible be specific @ -No Did you speak to anyone other than the patient for history (EMS, parent, family, police, friend...)? What history was obtained from this source @ -No Did you review nursing and triage notes (agree or disagree)? Why? @ -I reviewed and agree with nursing and triage notes Were old charts reviewed (outside hosp., previous admission, EMS record, old EKG, old radiological studies, urgent care reports/EKG's, halfway records)? Report findings @ -No old charts were reviewed Differential Diagnosis (chest pain, altered mental status, abdominal pain women, abdominal pain men, vaginal bleeding, weakness, fever, dyspnea, syncope, headache, dizziness, GI bleed, back pain, seizure, CVA, palpatations, mental health, musculoskeletal)? @ -Alcohol intoxication, alcohol abuse EKG interpreted by me (3pts min.). @ -None X-rays interpreted by me (1pt min.). @ -None done CT interpreted by me (1pt min.). @ -None done U/S interpreted by me (1pt. min.). @ -None done What testing was considered but not performed or refused? (CT, X-rays, U/S, labs)? Why? @ -None What meds were considered but not given or refused? Why? @ -None Did you discuss the management of the patient with other professionals (professionals i.e. , PA, APPLICATION SUPPORT ENGINEER, lab, RT, psych nurse, social welfare administrator, lab support tech, teacher, professional security officer, embedded case manager)? Give summary @ -No Was smoking cessation discussed for >3mins.? @ -No Was critical care preformed (if so, how long)? @ -No Were there social determinants of health that impacted care today? How? (Homelessness, low income, unemployed, alcoholism, drug addiction, transportation, low edu. Level, literacy, decrease access to med. care, skilled nursing, rehab)? @ -No Was there de-escalation of care discussed even if they declined (Discuss DNR or withdrawal of care, Hospice)? DNR status @ -No What co-morbidities impacted this encounter? (DM, HTN, Smoking, COPD, CAD, Cancer, CVA, ARF, Chemo, Hep., AIDS, mental health diagnosis, sleep apnea, morbid obesity)? @ -None Was patient admitted / discharged? Hospital course, mention meds given and route, prescriptions, significant lab abnormalities, going to OR and other pertinent info. @ -Discharge patient awake alert and orientated. Patient is clinically sober will be discharged in stable condition. Undiagnosed new problem with uncertain prognosis? @ -No Drug Therapy requiring intensive monitoring for toxicity (Heparin, Nitro, Insulin, Cardizem)? @ -No Were any procedures done? @ -No Diagnosis/symptom? @ -Alcohol intoxication Acute, or Chronic, or Acute on Chronic? @ -Acute Uncomplicated (without systemic symptoms) or Complicated (systemic symptoms)? @ -Complicated Side effects of treatment? @ -No Exacerbation, Progression, or Severe Exacerbation? @ -No Poses a threat to life or bodily function? How? (Chest pain, [place], [place], pneumonia, PE, COPD, DKA, ARF, appy, cholecystitis, CVA, Diverticulitis, Homicidal, Suicidal, threat to staff... and all critical care pts) @ -No Disposition Clinical Impression: Alcoholic intoxication Disposition: HOME SELF-CARE Condition: Stable Additional Instructions: Please return to the Emergency Department if symptoms worsen or any other concerns. Is patient prescribed a controlled substance at d/c from ED?: No Referrals: Luis Cho MD [Primary Care Provider] - 1-2 days Time of Disposition: 21:51
[2024-05-07 22:00] VITALS: BP 144/106; PULSE 102; RESP 18
== END 2024-05-07 21:59 | disposition home or self-care (01) ==
LOC: EC 18:17
DX: F10.129 Alcohol abuse with intoxication, unspecified (principal)
CPT/HCPCS: 99284

== ENCOUNTER 2024-05-08 22:34 | Emergency (ER) | payer OTHER ==
[2024-05-08 23:13] VITALS: TEMP 98.6
[2024-05-09 03:30] VITALS: BP 112/68; PULSE 93; RESP 18
--- NOTE | 2024-05-09 05:57 | ED ---
Alcohol HPI - General Chief Complaint: Alcohol Stated Complaint: Seizure Time Seen by Provider: 05/08/24 23:56 Source: patient Mode of arrival: EMS Limitations: no limitations - History of Present Illness Initial Comments: Patient is 43-year-old man brought by ambulance with complaint of being intoxicated. Patient denies recent trauma MD Complaint: alcohol intoxication Last Drink: just [employer] Previous Visits for Alcohol Intoxication?: Yes Recent Trauma: No Associated Symptoms: denies other symptoms - Related Data Home Medications Medication Instructions Recorded Confirmed No Known Home Medications 05/17/24 05/17/24 Allergies Allergy/AdvReac Type Severity Reaction Status Date / Time No Known Allergies Allergy Verified 05/16/24 23:37 Review of Systems ROS Statement: Those systems with pertinent positive or pertinent negative responses have been documented in the HPI. ROS Other: All systems not noted in ROS Statement are negative. Constitutional: Denies: fever Respiratory: Denies: cough, dyspnea Cardiovascular: Denies: chest pain, palpitations Gastrointestinal: Denies: abdominal pain, vomiting Musculoskeletal: Denies: back pain Neurological: Denies: headache, weakness Psychiatric: Denies: suicidal thoughts Past Medical History Past Medical History: Hypertension, Pneumonia, Seizure Disorder Additional Past Medical History / Comment(s): ETOH History of Any Multi-Drug Resistant Organisms: None Reported Past Surgical History: Joint Replacement, Orthopedic Surgery Additional Past Surgical History / Comment(s): Right leg. surgery, left leg incision and drainage for spider bite, jaw surgery 2018 Past Anesthesia/Blood Transfusion Reactions: No Reported Reaction Past Psychological History: Anxiety Smoking Status: Never smoker Past Alcohol Use History: Abuse, Daily, Heavy Past Drug Use History: None Reported - Past Family History Sister(s) Family Medical History: Diabetes Mellitus Mother Family Medical History: Diabetes Mellitus Additional Family Medical History / Comment(s): from sudhakar johnsons syndrome Father Family Medical History: Diabetes Mellitus, Myocardial Infarction ([place]) Additional Family Medical History / Comment(s): from dm complications General Exam Limitations: no limitations General appearance: alert, in no apparent distress, appears intoxicated Head exam: Present: atraumatic, normocephalic Eye exam: Present: normal appearance. Absent: scleral icterus, conjunctival injection Neck exam: Present: normal inspection, full ROM. Absent: tenderness Respiratory exam: Present: normal lung sounds bilaterally. Absent: respiratory distress, wheezes, rales, rhonchi, stridor, chest wall tenderness, accessory muscle use Cardiovascular Exam: Present: regular rate, normal rhythm, normal heart sounds. Absent: systolic murmur, diastolic murmur, rubs, gallop GI/Abdominal exam: Present: soft. Absent: distended, tenderness, guarding, rebound, rigid, mass Extremities exam: Present: normal inspection, normal capillary refill. Absent: pedal edema, calf tenderness Back exam: Present: normal inspection. Absent: vertebral tenderness Neurological exam: Present: alert Skin exam: Present: warm, dry, intact, normal color. Absent: rash Course Vital Signs 05/08/24 05/09/24 23:11 03:00 Temperature 98.6 F Pulse Rate 83 93 Respiratory 16 18 Rate Blood Pressure 123/77 112/68 O2 Sat by Pulse 98 96 Oximetry Medical Decision Making - Medical Decision Making Was pt. sent in by a medical professional or institution (, PA, COLLECTOR OF INTERNAL REVENUE, urgent care, hospital, or longterm...) When possible be specific @ -[No] Did you speak to anyone other than the patient for history (EMS, parent, family, police, friend...)? What history was obtained from this source @ -[No] Did you review nursing and triage notes (agree or disagree)? Why? @ -[I reviewed and agree with nursing and triage notes] Were old charts reviewed (outside hosp., previous admission, EMS record, old EKG, old radiological studies, urgent care reports/EKG's, longterm records)? Report findings @ -[No old charts were reviewed] Differential Diagnosis (chest pain, altered mental status, abdominal pain women, abdominal pain men, vaginal bleeding, weakness, fever, dyspnea, syncope, headache, dizziness, GI bleed, back pain, seizure, CVA, palpatations, mental health, musculoskeletal)? @ -[Differential Mental Health Depression, anxiety, bipolar, psychosis, schizophrenia, borderline personality, situational depression, adjustment disorder, behavioral disorder, brain tumor, malingering, substance abuse, encephalopathy, medication reaction, dementia, hypothyroidism, degenerative neurologic disorder, lupus.... This is not meant to be all-inclusive list EKG interpreted by me (3pts min.). @ -[As above] X-rays interpreted by me (1pt min.). @ -[None done] CT interpreted by me (1pt min.). @ -[None done] U/S interpreted by me (1pt. min.). @ -[None done] What testing was considered but not performed or refused? (CT, X-rays, U/S, labs)? Why? @ -[None] What meds were considered but not given or refused? Why? @ -[None] Did you discuss the management of the patient with other professionals (professionals i.e. , PA, COLLECTOR OF INTERNAL REVENUE, lab, RT, psych nurse, case management social worker, legal analyst, teacher, policy officer, case management associate)? Give summary @ -[No] Was smoking cessation discussed for >3mins.? @ -[No] Was critical care preformed (if so, how long)? @ -[No] Were there social determinants of health that impacted care today? How? (Homelessness, low income, unemployed, alcoholism, drug addiction, transportation, low edu. Level, literacy, decrease access to med. care, long-term, rehab)? @ -[Alcoholism Was there de-escalation of care discussed even if they declined (Discuss DNR or withdrawal of care, Hospice)? DNR status @ -[No] What co-morbidities impacted this encounter? (DM, HTN, Smoking, COPD, CAD, Cancer, CVA, ARF, Chemo, Hep., AIDS, mental health diagnosis, sleep apnea, morbid obesity)? @ -[Alcoholism Was patient admitted / discharged? Hospital course, mention meds given and route, prescriptions, significant lab abnormalities, going to OR and other pertinent info. @ -[Patient is observed until clinically sober Undiagnosed new problem with uncertain prognosis? @ -[No] Drug Therapy requiring intensive monitoring for toxicity (Heparin, Nitro, Insulin, Cardizem)? @ -[No] Were any procedures done? @ -[No] Diagnosis/symptom? @ -[Acute alcohol intoxication Acute, or Chronic, or Acute on Chronic? @ -[Acute Uncomplicated (without systemic symptoms) or Complicated (systemic symptoms)? @ -[Uncomplicated Side effects of treatment? @ -[No] Exacerbation, Progression, or Severe Exacerbation? @ -[No] Poses a threat to life or bodily function? How? (Chest pain, USA, [place], pneumonia, PE, COPD, DKA, ARF, appy, cholecystitis, CVA, Diverticulitis, Homicidal, Suicidal, threat to staff... and all critical care pts) @ -[No] Disposition Clinical Impression: Alcoholic intoxication Disposition: HOME SELF-CARE Condition: Good Instructions (If sedation given, give patient instructions): Alcohol Intoxication (ED) Is patient prescribed a controlled substance at d/c from ED?: No Referrals: None,Stated [Primary Care Provider] - 1-2 days
== END 2024-05-09 06:04 | disposition home or self-care (01) ==
LOC: EC 22:34
DX: F10.129 Alcohol abuse with intoxication, unspecified (principal)
CPT/HCPCS: 82075; 99284

== ENCOUNTER 2024-05-10 01:27 | Emergency (ER) | payer OTHER ==
[2024-05-10 01:43] VITALS: TEMP 98.3
--- NOTE | 2024-05-10 02:11 | ED ---
Alcohol HPI - General Chief Complaint: Alcohol Stated Complaint: ETOH Time Seen by Provider: 05/10/24 02:11 Source: patient Mode of arrival: EMS Limitations: no limitations - History of Present Illness Initial Comments: Patient is a 43-year-old man brought by EMS. Patient reports drinking tonight. Denies recent trauma. MD Complaint: alcohol intoxication Last Drink: just [employer] -: minute(s) Previous Visits for Alcohol Intoxication?: Yes Recent Trauma: No Associated Symptoms: denies other symptoms Treatments Prior to Arrival: none Chronic Alcohol Use: Yes - Related Data Home Medications Medication Instructions Recorded Confirmed No Known Home Medications 05/17/24 05/17/24 Allergies Allergy/AdvReac Type Severity Reaction Status Date / Time No Known Allergies Allergy Verified 05/16/24 23:37 Review of Systems ROS Statement: Those systems with pertinent positive or pertinent negative responses have been documented in the HPI. ROS Other: All systems not noted in ROS Statement are negative. Constitutional: Denies: fever Respiratory: Denies: cough, dyspnea Cardiovascular: Denies: chest pain Gastrointestinal: Denies: abdominal pain, vomiting Musculoskeletal: Denies: back pain Neurological: Denies: headache, weakness Psychiatric: Denies: suicidal thoughts Past Medical History Past Medical History: Hypertension, Pneumonia, Seizure Disorder Additional Past Medical History / Comment(s): ETOH History of Any Multi-Drug Resistant Organisms: None Reported Past Surgical History: Joint Replacement, Orthopedic Surgery Additional Past Surgical History / Comment(s): Right leg. surgery, left leg incision and drainage for spider bite, jaw surgery 2018 Past Anesthesia/Blood Transfusion Reactions: No Reported Reaction Past Psychological History: Anxiety Smoking Status: Never smoker Past Alcohol Use History: Abuse, Daily, Heavy Past Drug Use History: None Reported - Past Family History Sister(s) Family Medical History: Diabetes Mellitus Mother Family Medical History: Diabetes Mellitus Additional Family Medical History / Comment(s): from sudhakar johnsons syndrome Father Family Medical History: Diabetes Mellitus, Myocardial Infarction ([place]) Additional Family Medical History / Comment(s): from dm complications General Exam Limitations: no limitations General appearance: alert, in no apparent distress, appears intoxicated Head exam: Present: atraumatic, normocephalic Eye exam: Present: normal appearance. Absent: scleral icterus, conjunctival injection Neck exam: Present: normal inspection. Absent: tenderness Respiratory exam: Present: normal lung sounds bilaterally. Absent: respiratory distress, wheezes, rales, rhonchi, stridor, chest wall tenderness, accessory muscle use Cardiovascular Exam: Present: regular rate, normal rhythm, normal heart sounds. Absent: systolic murmur, diastolic murmur, rubs, gallop GI/Abdominal exam: Present: soft. Absent: distended, tenderness, guarding Extremities exam: Present: normal inspection Back exam: Present: normal inspection. Absent: vertebral tenderness Neurological exam: Present: alert Skin exam: Present: warm, dry, intact, normal color. Absent: rash Course Vital Signs 05/10/24 05/10/24 01:36 06:37 Temperature 98.3 F Pulse Rate 91 94 Respiratory 18 16 Rate Blood Pressure 131/94 139/92 O2 Sat by Pulse 99 97 Oximetry Medical Decision Making - Medical Decision Making Was pt. sent in by a medical professional or institution (, PA, ASSISTANT TO THE DEAN, urgent care, hospital, or alf...) When possible be specific @ -[No] Did you speak to anyone other than the patient for history (EMS, parent, family, police, friend...)? What history was obtained from this source @ -[No] Did you review nursing and triage notes (agree or disagree)? Why? @ -[I reviewed and agree with nursing and triage notes] Were old charts reviewed (outside hosp., previous admission, EMS record, old EKG, old radiological studies, urgent care reports/EKG's, alf records)? Report findings @ -[No old charts were reviewed] Differential Diagnosis (chest pain, altered mental status, abdominal pain women, abdominal pain men, vaginal bleeding, weakness, fever, dyspnea, syncope, headache, dizziness, GI bleed, back pain, seizure, CVA, palpatations, mental health, musculoskeletal)? @ -[not applicable] EKG interpreted by me (3pts min.). @ -[As above] X-rays interpreted by me (1pt min.). @ -[None done] CT interpreted by me (1pt min.). @ -[None done] U/S interpreted by me (1pt. min.). @ -[None done] What testing was considered but not performed or refused? (CT, X-rays, U/S, labs)? Why? @ -[None] What meds were considered but not given or refused? Why? @ -[None] Did you discuss the management of the patient with other professionals (professionals i.e. , PA, ASSISTANT TO THE [employer], lab, RT, psych nurse, social problems specialist, supervisor finishing, teacher, philanthropy officer, high risk case manager)? Give summary @ -[No] Was smoking cessation discussed for >3mins.? @ -[No] Was critical care preformed (if so, how long)? @ -[No] Were there social determinants of health that impacted care today? How? (Homelessness, low income, unemployed, alcoholism, drug addiction, transportation, low edu. Level, literacy, decrease access to med. care, care home, rehab)? @ -[Alcoholism Was there de-escalation of care discussed even if they declined (Discuss DNR or withdrawal of care, Hospice)? DNR status @ -[No] What co-morbidities impacted this encounter? (DM, HTN, Smoking, COPD, CAD, Cancer, CVA, ARF, Chemo, Hep., AIDS, mental health diagnosis, sleep apnea, morbid obesity)? @ -[Alcoholism Was patient admitted / discharged? Hospital course, mention meds given and route, prescriptions, significant lab abnormalities, going to OR and other pertinent info. @ -[Patient is a 43-year-old man brought for intoxication. Patient is observed until clinically sober Undiagnosed new problem with uncertain prognosis? @ -[No] Drug Therapy requiring intensive monitoring for toxicity (Heparin, Nitro, Insulin, Cardizem)? @ -[No] Were any procedures done? @ -[No] Diagnosis/symptom? @ -[Acute alcohol intoxication Acute, or Chronic, or Acute on Chronic? @ -[Acute on chronic Uncomplicated (without systemic symptoms) or Complicated (systemic symptoms)? @ -[Uncomplicated Side effects of treatment? @ -[No] Exacerbation, Progression, or Severe Exacerbation? @ -[No] Poses a threat to life or bodily function? How? (Chest pain, [place], [place], pneumonia, PE, COPD, DKA, ARF, appy, cholecystitis, CVA, Diverticulitis, Homicidal, Suicidal, threat to staff... and all critical care pts) @ -[No] Disposition Clinical Impression: Alcoholic intoxication Disposition: HOME SELF-CARE Condition: Good Instructions (If sedation given, give patient instructions): Alcohol Intoxication (ED) Is patient prescribed a controlled substance at d/c from ED?: No Referrals: Luis Cho MD [Primary Care Provider] - 1-2 days
[2024-05-10 06:43] VITALS: BP 139/92; PULSE 94; RESP 16
== END 2024-05-10 06:44 | disposition home or self-care (01) ==
LOC: EC 01:27
DX: F10.129 Alcohol abuse with intoxication, unspecified (principal)
CPT/HCPCS: 99283

== ENCOUNTER 2024-05-10 23:29 | Emergency (ER) | payer OTHER ==
[2024-05-11 02:44] VITALS: RESP 16
--- NOTE | 2024-05-11 06:41 | ED ---
General Adult HPI - General Chief complaint: Seizure Stated complaint: seizure Time Seen by Provider: 05/10/24 23:37 Source: EMS Mode of arrival: EMS - History of Present Illness Initial comments: This patient is a 43-year-old man with Chronic alcohol use who presents after reportedly having had a seizure. The patient denies complaints -: minutes(s) Severity scale (1-10): 0 Consistency: now resolved Improves with: none Worsens with: none Associated Symptoms: denies other symptoms - Related Data Home Medications Medication Instructions Recorded Confirmed No Known Home Medications 05/17/24 05/17/24 Allergies Allergy/AdvReac Type Severity Reaction Status Date / Time No Known Allergies Allergy Verified 05/16/24 23:37 Review of Systems ROS Statement: Those systems with pertinent positive or pertinent negative responses have been documented in the HPI. ROS Other: All systems not noted in ROS Statement are negative. Constitutional: Denies: fever Respiratory: Denies: cough, dyspnea Cardiovascular: Denies: chest pain, palpitations Gastrointestinal: Denies: abdominal pain, vomiting, diarrhea Genitourinary: Denies: dysuria, hematuria Musculoskeletal: Denies: back pain Skin: Denies: rash Neurological: Denies: headache Past Medical History Past Medical History: Hypertension, Pneumonia, Seizure Disorder Additional Past Medical History / Comment(s): ETOH History of Any Multi-Drug Resistant Organisms: None Reported Past Surgical History: Joint Replacement, Orthopedic Surgery Additional Past Surgical History / Comment(s): Right leg. surgery, left leg incision and drainage for spider bite, jaw surgery 2018 Past Anesthesia/Blood Transfusion Reactions: No Reported Reaction Past Psychological History: Anxiety Smoking Status: Never smoker Past Alcohol Use History: Abuse, Daily, Heavy Past Drug Use History: None Reported - Past Family History Sister(s) Family Medical History: Diabetes Mellitus Mother Family Medical History: Diabetes Mellitus Additional Family Medical History / Comment(s): from sudhakar johnsons syndrome Father Family Medical History: Diabetes Mellitus, Myocardial Infarction ([place]) Additional Family Medical History / Comment(s): from dm complications General Exam General appearance: alert, appears intoxicated Head exam: Present: atraumatic, normocephalic Eye exam: Present: normal appearance, PERRL, EOMI, nystagmus. Absent: scleral icterus, conjunctival injection ENT exam: Present: normal oropharynx Neck exam: Present: normal inspection, full ROM Respiratory exam: Present: normal lung sounds bilaterally. Absent: respiratory distress, wheezes, rales, rhonchi, stridor, accessory muscle use Cardiovascular Exam: Present: regular rate, normal rhythm, normal heart sounds. Absent: systolic murmur, diastolic murmur, rubs, gallop GI/Abdominal exam: Present: soft. Absent: distended, tenderness, guarding, rebound, rigid, mass Extremities exam: Present: normal inspection, normal capillary refill. Absent: pedal edema, calf tenderness Back exam: Present: normal inspection. Absent: CVA tenderness (R), CVA tenderness (L) Neurological exam: Present: alert Skin exam: Present: warm, dry, intact, normal color. Absent: rash Course Vital Signs 05/10/24 05/11/24 05/11/24 23:32 02:42 06:51 Temperature 97.7 F 98.0 F Pulse Rate 105 H 108 H 90 Respiratory 18 16 16 Rate Blood Pressure 127/91 125/97 130/84 O2 Sat by Pulse 99 95 97 Oximetry Medical Decision Making - Medical Decision Making Was pt. sent in by a medical professional or institution (, PA, DUMPLING MACHINE OPERATOR, urgent care, hospital, or penitentiary...) When possible be specific @ -[No] Did you speak to anyone other than the patient for history (EMS, parent, family, police, friend...)? What history was obtained from this source @ -[No] Did you review nursing and triage notes (agree or disagree)? Why? @ -[I reviewed and agree with nursing and triage notes] Were old charts reviewed (outside hosp., previous admission, EMS record, old EKG, old radiological studies, urgent care reports/EKG's, penitentiary records)? Report findings @ -[No old charts were reviewed] Differential Diagnosis (chest pain, altered mental status, abdominal pain women, abdominal pain men, vaginal bleeding, weakness, fever, dyspnea, syncope, headache, dizziness, GI bleed, back pain, seizure, CVA, palpatations, mental health, musculoskeletal)? @ -[Differential Mental Health Depression, anxiety, bipolar, psychosis, schizophrenia, borderline personality, situational depression, adjustment disorder, behavioral disorder, brain tumor, malingering, substance abuse, encephalopathy, medication reaction, dementia, hypothyroidism, degenerative neurologic disorder, lupus.... This is not meant to be all-inclusive list EKG interpreted by me (3pts min.). @ -[As above] X-rays interpreted by me (1pt min.). @ -[None done] CT interpreted by me (1pt min.). @ -[None done] U/S interpreted by me (1pt. min.). @ -[None done] What testing was considered but not performed or refused? (CT, X-rays, U/S, labs)? Why? @ -[None] What meds were considered but not given or refused? Why? @ -[None] Did you discuss the management of the patient with other professionals (professionals i.e. Dr., PA, DUMPLING MACHINE OPERATOR, lab, RT, psych nurse, social work professor, yarn man, teacher, learning and development officer, hospice case manager)? Give summary @ -[No] Was smoking cessation discussed for >3mins.? @ -[No] Was critical care preformed (if so, how long)? @ -[No] Were there social determinants of health that impacted care today? How? (Homelessness, low income, unemployed, alcoholism, drug addiction, transportation, low edu. Level, literacy, decrease access to med. care, group home, rehab)? @ -[Alcoholism Was there de-escalation of care discussed even if they declined (Discuss DNR or withdrawal of care, Hospice)? DNR status @ -[No] What co-morbidities impacted this encounter? (DM, HTN, Smoking, COPD, CAD, Cancer, CVA, ARF, Chemo, Hep., AIDS, mental health diagnosis, sleep apnea, morbid obesity)? @ -[Alcoholism Was patient admitted / discharged? Hospital course, mention meds given and route, prescriptions, significant lab abnormalities, going to OR and other pertinent info. @ -[Patient is a 43-year-old man with chronic alcohol use. The patient reportedly has underlying seizure disorder. He is back at baseline with no evident injury. Watched until clinically sober and then stable for discharge Undiagnosed new problem with uncertain prognosis? @ -[No] Drug Therapy requiring intensive monitoring for toxicity (Heparin, Nitro, Insulin, Cardizem)? @ -[No] Were any procedures done? @ -[No] Diagnosis/symptom? @ -[Acute alcohol intoxication Acute seizure Acute, or Chronic, or Acute on Chronic? @ -[Acute Uncomplicated (without systemic symptoms) or Complicated (systemic symptoms)? @ -[Uncomplicated Side effects of treatment? @ -[No] Exacerbation, Progression, or Severe Exacerbation? @ -[No] Poses a threat to life or bodily function? How? (Chest pain, [place], [place], pneumonia, PE, COPD, DKA, ARF, appy, cholecystitis, CVA, Diverticulitis, Homicidal, Suic idal, threat to staff... and all critical care pts) @ -[No] Disposition Clinical Impression: Alcoholic intoxication Disposition: HOME SELF-CARE Condition: Good Instructions (If sedation given, give patient instructions): Alcohol Intoxication (ED) Is patient prescribed a controlled substance at d/c from ED?: No Referrals: Luis Cho MD [Primary Care Provider] - 1-2 days
[2024-05-11 06:55] VITALS: BP 130/84; PULSE 90; TEMP 98
== END 2024-05-11 07:04 | disposition home or self-care (01) ==
LOC: EC 23:29
DX: F10.129 Alcohol abuse with intoxication, unspecified (principal)
CPT/HCPCS: 99284

== ENCOUNTER 2024-05-11 23:40 | Emergency (ER) | payer OTHER ==
[2024-05-11 23:44] VITALS: BP 135/90; TEMP 98
--- NOTE | 2024-05-12 05:55 | ED ---
General Adult HPI - General Chief complaint: Recheck/Abnormal Lab/Rx Stated complaint: ETOH Time Seen by Provider: 05/12/24 00:52 Source: EMS Mode of arrival: EMS Limitations: no limitations - History of Present Illness Initial comments: This patient is a 43-year-old man presenting with intoxication, brought by EMS for being drunk in public -: minutes(s) Severity scale (1-10): 0 Associated Symptoms: denies other symptoms - Related Data Home Medications Medication Instructions Recorded Confirmed No Known Home Medications 05/17/24 05/17/24 Allergies Allergy/AdvReac Type Severity Reaction Status Date / Time No Known Allergies Allergy Verified 05/16/24 23:37 Review of Systems ROS Statement: Those systems with pertinent positive or pertinent negative responses have been documented in the HPI. ROS Other: All systems not noted in ROS Statement are negative. Constitutional: Denies: fever Respiratory: Denies: cough, dyspnea Cardiovascular: Denies: chest pain, syncope Gastrointestinal: Denies: abdominal pain, vomiting, melena, hematochezia Genitourinary: Denies: dysuria, hematuria Musculoskeletal: Denies: back pain Neurological: Denies: headache Past Medical History Past Medical History: Hypertension, Pneumonia, Seizure Disorder Additional Past Medical History / Comment(s): ETOH History of Any Multi-Drug Resistant Organisms: None Reported Past Surgical History: Joint Replacement, Orthopedic Surgery Additional Past Surgical History / Comment(s): Right leg. surgery, left leg incision and drainage for spider bite, jaw surgery 2018 Past Anesthesia/Blood Transfusion Reactions: No Reported Reaction Past Psychological History: Anxiety Smoking Status: Never smoker Past Alcohol Use History: Abuse, Daily, Heavy Past Drug Use History: None Reported - Past Family History Sister(s) Family Medical History: Diabetes Mellitus Mother Family Medical History: Diabetes Mellitus Additional Family Medical History / Comment(s): from sudhakar johnsons syndrome Father Family Medical History: Diabetes Mellitus, Myocardial Infarction ([place]) Additional Family Medical History / Comment(s): from dm complication s General Exam Limitations: no limitations General appearance: alert Head exam: Present: atraumatic, normocephalic Eye exam: Present: normal appearance Neck exam: Present: normal inspection, full ROM. Absent: tenderness Respiratory exam: Present: normal lung sounds bilaterally. Absent: respiratory distress, wheezes, rales, rhonchi, stridor, chest wall tenderness, accessory muscle use Cardiovascular Exam: Present: regular rate, normal rhythm, normal heart sounds. Absent: systolic murmur, diastolic murmur, rubs, gallop GI/Abdominal exam: Present: soft. Absent: distended, tenderness, guarding, rebound, rigid, mass Extremities exam: Present: normal inspection, normal capillary refill. Absent: pedal edema, calf tenderness Back exam: Present: normal inspection. Absent: vertebral tenderness Neurological exam: Present: alert Psychiatric exam: Absent: suicidal ideation Skin exam: Present: warm, dry, intact, normal color. Absent: rash Course Vital Signs 05/11/24 05/12/24 23:43 06:15 Temperature 98 F Pulse Rate 90 91 Respiratory 18 16 Rate Blood Pressure 135/90 O2 Sat by Pulse 96 96 Oximetry Medical Decision Making - Medical Decision Making Was pt. sent in by a medical professional or institution (Dr. PA, CONTINUOUS IMPROVEMENT FACILITATOR, urgent care, hospital, or [facility]...) When possible be specific @ -[No] Did you speak to anyone other than the patient for history (EMS, parent, family, police, friend...)? What history was obtained from this source @ -[No] Did you review nursing and triage notes (agree or disagree)? Why? @ -[I reviewed and agree with nursing and triage notes] Were old charts reviewed (outside hosp., previous admission, EMS record, old EKG, old radiological studies, urgent care reports/EKG's, [facility] records)? Report findings @ -[No old charts were reviewed] Differential Diagnosis (chest pain, altered mental status, abdominal pain women, abdominal pain men, vaginal bleeding, weakness, fever, dyspnea, syncope, headache, dizziness, GI bleed, back pain, seizure, CVA, palpatations, mental health, musculoskeletal)? @ -[Differential Mental Health Depression, anxiety, bipolar, psychosis, schizophrenia, borderline personality, situational depression, adjustment disorder, behavioral disorder, brain tumor, malingering, substance abuse, encephalopathy, medication reaction, dementia, hypothyroidism, degenerative neurologic disorder, lupus.... This is not meant to be all-inclusive list EKG interpreted by me (3pts min.). @ -[As above] X-rays interpreted by me (1pt min.). @ -[None done] CT interpreted by me (1pt min.). @ -[None done] U/S interpreted by me (1pt. min.). @ -[None done] What testing was considered but not performed or refused? (CT, X-rays, U/S, labs)? Why? @ -[None] What meds were considered but not given or refused? Why? @ -[None] Did you discuss the management of the patient with other professionals (professionals i.e. DrMynor, PA, CONTINUOUS IMPROVEMENT FACILITATOR, lab, RT, psych nurse, social work faculty member, disaster response director, teacher, energy control officer, case manager specialist)? Give summary @ -[No] Was smoking cessation discussed for >3mins.? @ -[No] Was critical care preformed (if so, how long)? @ -[No] Were there social determinants of health that impacted care today? How? (Homelessness, low income, unemployed, alcoholism, drug addiction, transportation, low edu. Level, literacy, decrease access to med. care, shelter, rehab)? @ -[Alcoholism Was there de-escalation of care discussed even if they declined (Discuss DNR or withdrawal of care, Hospice)? DNR status @ -[No] What co-morbidities impacted this encounter? (DM, HTN, Smoking, COPD, CAD, Cancer, CVA, ARF, Chemo, Hep., AIDS, mental health diagnosis, sleep apnea, morbid obesity)? @ -[Alcoholism Was patient admitted / discharged? Hospital course, mention meds given and route, prescriptions, significant lab abnormalities, going to OR and other pertinent info. @ -[Patient is 43-year-old man here for alcohol intoxication. Patient observed until clinically sober. Undiagnosed new problem with uncertain prognosis? @ -[No] Drug Therapy requiring intensive monitoring for toxicity (Heparin, Nitro, Insulin, Cardizem)? @ -[No] Were any procedures done? @ -[No] Diagnosis/symptom? @ -[Acute alcohol intoxication Acute, or Chronic, or Acute on Chronic? @ -[Acute Uncomplicated (without systemic symptoms) or Complicated (systemic symptoms)? @ -[default] Side effects of treatment? @ -[No] Exacerbation, Progression, or Severe Exacerbation? @ -[No] Poses a threat to life or bodily function? How? (Chest pain, [place], [place], pneumonia, PE, COPD, DKA, ARF, appy, cholecystitis, CVA, Diverticulitis, Homicidal, Suicidal, threat to staff... and all critical care pts) @ -[No] Disposition Clinical Impression: Alcoholic intoxication Disposition: HOME SELF-CARE Condition: Good Instructions (If sedation given, give patient instructions): Alcohol In toxication (DC) Is patient prescribed a controlled substance at d/c from ED?: No Referrals: Luis Cho MD [Primary Care Provider] - 1-2 days
[2024-05-12 06:17] VITALS: PULSE 91; RESP 16
== END 2024-05-12 06:16 | disposition home or self-care (01) ==
LOC: EC 23:40
DX: F10.129 Alcohol abuse with intoxication, unspecified (principal)
CPT/HCPCS: 99284

== ENCOUNTER 2024-05-12 21:17 | Emergency (ER) | payer OTHER ==
[2024-05-12 22:21] VITALS: BP 154/98; TEMP 97.2
--- NOTE | 2024-05-13 03:06 | ED ---
Alcohol HPI - General Chief Complaint: Alcohol Stated Complaint: ETOH Time Seen by Provider: 05/12/24 23:05 Source: EMS Mode of arrival: EMS - History of Present Illness Initial Comments: 43-year-old male well-known to our ER presenting for evaluation. Is unclear exactly what he has come to the ER for. He is currently intoxicated. He is a daily drinker. He is resting comfortably showing no acute signs of distress. Unable to obtain meaningful history due to alcohol intoxication - Related Data Home Medications Medication Instructions Recorded Confirmed Colchicine See Taper PO DIRECTED 05/07/24 05/07/24 Multivitamins, Thera [Multivitamin 1 tab PO DIRECTED 05/07/24 05/07/24 (formulary)] Thiamine [Vitamin B-1] 100 mg PO DIRECTED 05/07/24 05/07/24 cloNIDine HCL [Catapres] 0.1 mg PO DIRECTED 05/07/24 05/07/24 Previous Rx's Medication Instructions Recorded Acetaminophen Tab [Tylenol] 650 mg PO Q6HR PRN tab 05/04/24 Folic Acid 1 mg PO DAILY #30 tab 05/04/24 Ibuprofen [Motrin] 400 mg PO Q6HR PRN #30 tab 05/04/24 Allergies Allergy/AdvReac Type Severity Reaction Status Date / Time No Known Allergies Allergy Verified 05/12/24 22:21 Review of Systems ROS Statement: Those systems with pertinent positive or pertinent negative responses have been documented in the HPI. ROS Other: All systems not noted in ROS Statement are negative. Past Medical History Past Medical History: Hypertension, Pneumonia, Seizure Disorder Additional Past Medical History / Comment(s): ETOH History of Any Multi-Drug Resistant Organisms: None Reported Past Surgical History: Joint Replacement, Orthopedic Surgery Additional Past Surgical History / Comment(s): Right leg. surgery, left leg incision and drainage for spider bite, jaw surgery 2018 Past Anesthesia/Blood Transfusion Reactions: No Reported Reaction Past Psychological History: Anxiety Smoking Status: Never smoker Past Alcohol Use History: Abuse, Daily, Heavy Past Drug Use History: None Reported - Past Family History Sister(s) Family Medical History: Diabetes Mellitus Mother Family Medical History: Diabetes Mellitus Additional Family Medical History / Comment(s): from sudhakar johnsons syndrome Father Family Medical History: Diabetes Mellitus, Myocardial Infarction ([place]) Additional Family Medical History / Comment(s): from dm complications General Exam General appearance: alert, appears intoxicated Head exam: Present: atraumatic, normocephalic Eye exam: Present: normal appearance Neck exam: Present: normal inspection Respiratory exam: Absent: respiratory distress Cardiovascular Exam: Present: regular rate Skin exam: Present: normal color Course Vital Signs 05/12/24 05/13/24 22:17 04:22 Temperature 97.2 F L Pulse Rate 96 90 Respiratory 20 16 Rate Blood Pressure 154/98 O2 Sat by Pulse 99 95 Oximetry Medical Decision Making - Medical Decision Making Was pt. sent in by a medical professional or institution (DEVIN Woo, PROPERTY DISPOSAL MANAGER, urgent care, hospital, or senior care...) When possible be specific @ -No Did you speak to anyone other than the patient for history (EMS, parent, family, police, friend...)? What history was obtained from this source @ -No Did you review nursing and triage notes (agree or disagree)? Why? @ -I reviewed and agree with nursing and triage notes Were old charts reviewed (outside hosp., previous admission, EMS record, old EKG, old radiological studies, urgent care reports/EKG's, senior care records)? Report findings @ -No old charts were reviewed Differential Diagnosis (chest pain, altered mental status, abdominal pain women, abdominal pain men, vaginal bleeding, weakness, fever, dyspnea, syncope, headache, dizziness, GI bleed, back pain, seizure, CVA, palpatations, mental health, musculoskeletal)? @ -Not applicable EKG interpreted by me (3pts min.). @ -As above X-rays interpreted by me (1pt min.). @ -None done CT interpreted by me (1pt min.). @ -None done U/S interpreted by me (1pt. min.). @ -None done What testing was considered but not performed or refused? (CT, X-rays, U/S, labs)? Why? @ -None What meds were considered but not given or refused? Why? @ -None Did you discuss the management of the patient with other professionals (professionals i.e. DEVIN Woo, PROPERTY DISPOSAL MANAGER, lab, RT, psych nurse, social professionals, turpentine farmer, teacher, special weapons unit officer, case consultant)? Give summary @ -No Was smoking cessation discussed for >3mins.? @ -No Was critical care preformed (if so, how long)? @ -No Were there social determinants of health that impacted care today? How? (Homelessness, low income, unemployed, alcoholism, drug addiction, transportation, low edu. Level, literacy, decrease access to med. care, [facility], rehab)? @ -No Was there de-escalation of care discussed even if they declined (Discuss DNR or withdrawal of care, Hospice)? DNR status @ -No What co-morbidities impacted this encounter? (DM, HTN, Smoking, COPD, CAD, Cancer, CVA, ARF, Chemo, Hep., AIDS, mental health diagnosis, sleep apnea, morbid obesity)? @ -None Was patient admitted / discharged? Hospital course, mention meds given and rou te, prescriptions, significant lab abnormalities, going to OR and other pertinent info. @ -43-year-old male presenting for evaluation. Currently intoxicated. Patient shows no signs of distress. Patient is observed until clinically sober and discharged home. Follow-up with PCP. Report back to ER with any new or worsening symptoms. I discussed this case in detail with my attending Dr. Max Undiagnosed new problem with uncertain prognosis? @ -No Drug Therapy requiring intensive monitoring for toxicity (Heparin, Nitro, Insulin, Cardizem)? @ -No Were any procedures done? @ -No Diagnosis/symptom? @ -Alcohol intoxication Acute, or Chronic, or Acute on Chronic? @ -Acute Uncomplicated (without systemic symptoms) or Complicated (systemic symptoms)? @ -Uncomplicated Side effects of treatment? @ -No Exacerbation, Progression, or Severe Exacerbation? @ -No Poses a threat to life or bodily function? How? (Chest pain, [place], [place], pneumonia, PE, COPD, DKA, ARF, appy, cholecystitis, CVA, Diverticulitis, Homicidal, Suicidal, threat to staff... and all critical care pts) @ -No Disposition Clinical Impression: Alcohol intoxication Disposition: HOME SELF-CARE Condition: Fair Is patient prescribed a controlled substance at d/c from ED?: No Referrals: Luis Cho MD [Primary Care Provider] - 1-2 days
[2024-05-13 04:24] VITALS: PULSE 90; RESP 16
== END 2024-05-13 04:23 | disposition home or self-care (01) ==
LOC: EC 21:17
DX: F10.129 Alcohol abuse with intoxication, unspecified (principal); Y90.9 Presence of alcohol in blood, level not specified
CPT/HCPCS: 99284

== ENCOUNTER 2024-05-14 00:48 | Emergency (ER) | payer OTHER ==
[2024-05-14 00:53] VITALS: RESP 18
--- NOTE | 2024-05-14 05:18 | ED ---
Lower Extremity Injury HPI - General Chief Complaint: Extremity Injury, Lower Stated Complaint: Knee Pain Time Seen by Provider: 05/14/24 00:56 Source: patient Mode of arrival: ambulatory Limitations: no limitations - History of Present Illness Initial Comments: This patient is a 43-year-old man well-known to the department complaining of recurrence of knee pain. The patient had injury years ago and does have recurring pain. Patient states he has been able to walk on his knee but it does hurt. Complaint: knee injury -: year(s) Injury: Knee: Right Severity: mild Improves With: nothing Worsens With: other (Walking) - Related Data Home Medications Medication Instructions Recorded Confirmed No Known Home Medications 05/17/24 05/17/24 Allergies Allergy/AdvReac Type Severity Reaction Status Date / Time No Known Allergies Allergy Verified 05/16/24 23:37 Review of Systems ROS Statement: Those systems with pertinent positive or pertinent negative responses have been documented in the HPI. ROS Other: All systems not noted in ROS Statement are negative. Constitutional: Denies: fever, chills, weakness Musculoskeletal: Reports: as per HPI, arthralgia Skin: Denies: rash Neurological: Denies: weakness Past Medical History Past Medical History: Hypertension, Pneumonia, Seizure Disorder Additional Past Medical History / Comment(s): ETOH History of Any Multi-Drug Resistant Organisms: None Reported Past Surgical History: Joint Replacement, Orthopedic Surgery Additional Past Surgical History / Comment(s): Right leg. surgery, left leg incision and drainage for spider bite, jaw surgery 2018 Past Anesthesia/Blood Transfusion Reactions: No Reported Reaction Past Psychological History: Anxiety Smoking Status: Never smoker Past Alcohol Use History: Abuse, Daily, Heavy Past Drug Use History: None Reported - Past Family History Sister(s) Family Medical History: Diabetes Mellitus Mother Family Medical History: Diabetes Mellitus Additional Family Medical History / Comment(s): from sudhakar johnsons syndrome Father Family Medical History: Diabetes Mellitus, Myocardial Infarction ([place]) Additional Family Medical History / Comment(s): from dm complications General Exam Limitations: no limitations General appearance: alert, in no apparent distress, appears intoxicated Head exam: Present: atraumatic, normocephalic Eye exam: Present: normal appearance Extremities exam: Present: normal inspection, full ROM. Absent: tenderness Neurological exam: Present: alert Skin exam: Present: warm, dry, intact, normal color. Absent: rash Course Vital Signs 05/14/24 05/14/24 00:50 06:12 Temperature 97.9 F 98.2 F Pulse Rate 91 98 Respiratory 18 18 Rate Blood Pressure 155/93 113/77 O2 Sat by Pulse 97 97 Oximetry Medical Decision Making - Medical Decision Making Was pt. sent in by a medical professional or institution (, DEVIN, NURSE EDUCATOR, urgent care, hospital, or [place] [facility]...) When possible be specific @ -[No] Did you speak to anyone other than the patient for history (EMS, parent, family, police, friend...)? What history was obtained from this source @ -[No] Did you review nursing and triage notes (agree or disagree)? Why? @ -[I reviewed and agree with nursing and triage notes] Were old charts reviewed (outside hosp., previous admission, EMS record, old EKG, old radiological studies, urgent care reports/EKG's, [place] [facility] records)? Report findings @ -[No old charts were reviewed] Differential Diagnosis (chest pain, altered mental status, abdominal pain women, abdominal pain men, vaginal bleeding, weakness, fever, dyspnea, syncope, headache, dizziness, GI bleed, back pain, seizure, CVA, palpatations, mental health, musculoskeletal)? @ -[Differential Musculoskeletal Muscular strain, contusion, ligament sprain, fracture, arthritis, septic arthritis, bursitis, cellulitis, muscle spasm, nerve compression, DVT, arterial occlusion, herpes zoster, electrolyte abnormality, tumor.... This is not meant to be in all inclusive list EKG interpreted by me (3pts min.). @ -[As above] X-rays interpreted by me (1pt min.). @ -[None done] CT interpreted by me (1pt min.). @ -[None done] U/S interpreted by me (1pt. min.). @ -[None done] What testing was considered but not performed or refused? (CT, X-rays, U/S, labs)? Why? @ -[None] What meds were considered but not given or refused? Why? @ -[None] Did you discuss the management of the patient with other professionals (professionals i.e. , DEVIN, NURSE EDUCATOR, lab, RT, psych nurse, home health care social worker, readiness paraprofessional, teacher, human resources officer, housing case manager)? Give summary @ -[No] Was smoking cessation discussed for >3mins.? @ -[No] Was critical care preformed (if so, how long)? @ -[No] Were there social determinants of health that impacted care today? How? (Homelessness, low income, unemployed, alcoholism, drug addiction, transporta tion, low edu. Level, literacy, decrease access to med. care, retirement, rehab)? @ -[No] Was there de-escalation of care discussed even if they declined (Discuss DNR or withdrawal of care, Hospice)? DNR status @ -[No] What co-morbidities impacted this encounter? (DM, HTN, Smoking, COPD, CAD, Cancer, CVA, ARF, Chemo, Hep., AIDS, mental health diagnosis, sleep apnea, morbid obesity)? @ -[None] Was patient admitted / discharged? Hospital course, mention meds given and route, prescriptions, significant lab abnormalities, going to OR and other pertinent info. @ -[Patient is a 43-year-old man with exacerbation of chronic knee pain. On exam no evidence of infectious/inflammatory process. Discussed appropriate further care and follow-up Undiagnosed new problem with uncertain prognosis? @ -[No] Drug Therapy requiring intensive monitoring for toxicity (Heparin, Nitro, Insulin, Cardizem)? @ -[No] Were any procedures done? @ -[No] Diagnosis/symptom? @ -Acute exacerbation of chronic knee pain Acute alcohol intoxication Acute, or Chronic, or Acute on Chronic? @ -[Acute on chronic Uncomplicated (without systemic symptoms) or Complicated (systemic symptoms)? @ -[Uncomplicated Side effects of treatment? @ -[No] Exacerbation, Progression, or Severe Exacerbation? @ -[No] Poses a threat to life or bodily function? How? (Chest pain, [place], [place], pneumonia, PE, COPD, DKA, ARF, appy, cholecystitis, CVA, Diverticulitis, Homicidal, Suicidal, threat to staff... and all critical care pts) @ -[No] Disposition Clinical Impression: Right knee pain, Alcoholic intoxication Disposition: HOME SELF-CARE Condition: Good Instructions (If sedation given, give patient instructions): Knee Sprain (ED), Alcohol Intoxication (ED) Is patient prescribed a controlled substance at d/c from ED?: No Referrals: Luis Cho MD [Primary Care Provider] - 1-2 days
[2024-05-14 06:13] VITALS: BP 113/77; PULSE 98; TEMP 98.2
== END 2024-05-14 06:13 | disposition home or self-care (01) ==
LOC: EC 00:48
DX: G89.29 Other chronic pain (principal); M25.561 Pain in right knee; F10.129 Alcohol abuse with intoxication, unspecified
CPT/HCPCS: 99283

== ENCOUNTER 2024-05-16 03:27 | Emergency (ER) | payer OTHER ==
[2024-05-16 03:35] VITALS: BP 117/77; PULSE 97; RESP 18; TEMP 98
--- NOTE | 2024-05-16 03:43 | ED ---
General Adult HPI - General Chief complaint: Recheck/Abnormal Lab/Rx Stated complaint: ETOH Time Seen by Provider: 05/16/24 03:39 Source: patient, EMS, RN notes reviewed, old records reviewed Mode of arrival: EMS Limitations: no limitations - History of Present Illness Initial comments: Patient is a 43-year-old male who presents emergency department complaining of alcohol intoxication. States he feels cold. Has no obvious complaints at this time. Patient is a regular visitor to our ER for similar complaints in the past. States he was found on the ground cold and was shaking. Endorses alcohol intoxication. Patient has recurrent visit to our emergency department multiple nights a week. Always for alcohol intoxication. Currently is acting his normal baseline self at this time acutely intoxicated with alcohol. No new obvious acute complaint. - Related Data Home Medications Medication Instructions Recorded Confirmed Colchicine See Taper PO DIRECTED 05/07/24 05/07/24 Multivitamins, Thera [Multivitamin 1 tab PO DIRECTED 05/07/24 05/07/24 (formulary)] Thiamine [Vitamin B-1] 100 mg PO DIRECTED 05/07/24 05/07/24 cloNIDine HCL [Catapres] 0.1 mg PO DIRECTED 05/07/24 05/07/24 Previous Rx's Medication Instructions Recorded Acetaminophen Tab [Tylenol] 650 mg PO Q6HR PRN tab 05/04/24 Folic Acid 1 mg PO DAILY #30 tab 05/04/24 Ibuprofen [Motrin] 400 mg PO Q6HR PRN #30 tab 05/04/24 Allergies Allergy/AdvReac Type Severity Reaction Status Date / Time No Known Allergies Allergy Verified 05/16/24 03:35 Review of Systems ROS Statement: Those systems with pertinent positive or pertinent negative responses have been documented in the HPI. Review of Systems: CONST: Denies fever EYES: Denies blurry vision ENT: Denies nasal congestion C/V: Denies Chest pain RESP: Denies shortness of breath GI: Denies abdominal pain : Denies dysuria SKIN: Denies rash. MSK: Denies joint pain. NEURO: Denies headache ROS Other: All systems not noted in ROS Statement are negative. Past Medical History Past Medical History: Hypertension, Pneumonia, Seizure Disorder Additional Past Medical History / Comment(s): ETOH History of Any Multi-Drug Resistant Organisms: None Reported Past Surgical History: Joint Replacement, Orthopedic Surgery Additional Past Surgical History / Comment(s): Right leg. surgery, left leg incision and drainage for spider bite, jaw surgery 2018 Past Anesthesia/Blood Transfusion Reactions: No Reported Reaction Past Psychological History: Anxiety Smoking Status: Never smoker Past Alcohol Use History: Abuse, Daily, Heavy Past Drug Use History: None Reported - Past Family History Sister(s) Family Medical History: Diabetes Mellitus Mother Family Medical History: Diabetes Mellitus Additional Family Medical History / Comment(s): from sudhakar johnsons syndrome Father Family Medical History: Diabetes Mellitus, Myocardial Infarction ([place]) Additional Family Medical History / Comment(s): from dm complications General Exam - General Exam Comments Initial Comments: General: Appears in no acute distress. Appears intoxicated with alcohol HEAD: Normal with no signs of head trauma. EYES: EOMI. Conjunctiva normal. ENT: Hearing grossly intact, normal oropharynx. RESPIRATORY: Clear breath sounds bilaterally. No wheezes, rales, or rhonchi. C/V: Regular rate and rhythm. S1 and S2 auscultated. Peripheral pulses 2+ intact throughout. ABD: Abd is soft, nontender, nondistended EXT: Normal range of motion, no obvious deformity SKIN: No rashes or lesions observed on exposed skin. NEURO: Alert and oriented x 4. Focal deficits. Limitations: no limitations Course Vital Signs 05/16/24 03:32 Temperature 98 F Pulse Rate 97 Respiratory 18 Rate Blood Pressure 117/77 O2 Sat by Pulse 96 Oximetry Medical Decision Making - Medical Decision Making Was pt. sent in by a medical professional or institution (, PA, TAKE AWAY WORKER, urgent care, hospital, or half-way...) When possible be specific @ -No Did you speak to anyone other than the patient for history (EMS, parent, family, police, friend...)? What history was obtained from this source @ -No Did you review nursing and triage notes (agree or disagree)? Why? @ -I reviewed and agree with nursing and triage notes Were old charts reviewed (outside hosp., previous admission, EMS record, old EKG, old radiological studies, urgent care reports/EKG's, half-way records)? Report findings @ -No old charts were reviewed Differential Diagnosis (chest pain, altered mental status, abdominal pain women, abdominal pain men, vaginal bleeding, weakness, fever, dyspnea, syncope, headache, dizziness, GI bleed, back pain, seizure, CVA, palpatations, mental health, musculoskeletal)? @ -Alcohol intoxication, malingering. This list is not all inclusive. EKG interpreted by me (3pts min.). @ -None done X-rays interpreted by me (1pt min.). @ -None done CT interpreted by me (1pt min.). @ -None done U/S interpreted by me (1pt. min.). @ -None done What testing was considered but not performed or refused? (CT, X-rays, U/S, labs)? Why? @ -None What meds were considered but not given or refused? Why? @ -None Did you discuss the management of the patient with other professionals (professionals i.e. , PA, TAKE AWAY WORKER, lab, RT, psych nurse, social work associate, mammographer, teacher, officer captain, case management social worker)? Give summary @ -No Was smoking cessation discussed for >3mins.? @ -No Was critical care preformed (if so, how long)? @ -No Were there social determinants of health that impacted care today? How? (Homelessness, low income, unemployed, alcoholism, drug addiction, transportation, low edu. Level, literacy, decrease access to med. care, snf, rehab)? @ -No Was there de-escalation of care discussed even if they declined (Discuss DNR or withdrawal of care, Hospice)? DNR status @ -No What co-morbidities impacted this encounter? (DM, HTN, Smoking, COPD, CAD, Cancer, CVA, ARF, Chemo, Hep., AIDS, mental health diagnosis, sleep apnea, morbid obesity)? @ -None Was patient admitted / discharged? Hospital course, mention meds given and route, prescriptions, significant lab abnormalities, going to OR and other pertinent info. @ -Patient is a 43-year-old male well-known to our ER who presents multiple times per week for alcohol intoxication. He appears currently intact with alcohol at this time. No signs of distress. No obvious complaints. States he feels cold. He will be given a blanket. We will observe until clinically s constance. Then he will be discharged home. Instructed to follow-up with his PCP. Patient was in agreement this plan. Strict return precautions discussed.This is currently patient's sixth visit to the emergency department this week. He is at his normal baseline. I instructed the patient to follow up with their PCP in the next 1-3 days. I explained that the patient should return to the emergency department if they experience any worsening symptoms. Strict return precautions were discussed with the patient. The patient expressed understanding of these instructions. I answered all questions that the patient had. The patient was discharged home in good condition with their prescriptions and follow up information. Undiagnosed new problem with uncertain prognosis? @ -No Drug Therapy requiring intensive monitoring for toxicity (Heparin, Nitro, Insulin, Cardizem)? @ -No Were any procedures done? @ -No Diagnosis/symptom? @ -Alcohol intoxication Acute, or Chronic, or Acute on Chronic? @ -Acute Uncomplicated (without systemic symptoms) or Complicated (systemic symptoms)? @ -Uncomplicated Side effects of treatment? @ -No Exacerbation, Progression, or Severe Exacerbation? @ -No Poses a threat to life or bodily function? How? (Chest pain, [place], [place], pneumonia, PE, COPD, DKA, ARF, appy, cholecystitis, CVA, Diverticulitis, Homicidal, Suicidal, threat to staff... and all critical care pts) @ -Unlikely Disposition Clinical Impression: Alcohol intoxication Disposition: HOME SELF-CARE Condition: Good Instructions (If sedation given, give patient instructions): Alcohol Intoxication (ED) Is patient prescribed a controlled substance at d/c from ED?: No Referrals: Luis Cho MD [Primary Care Provider] - 1-2 days Time of Disposition: 05:23
== END 2024-05-16 05:24 | disposition home or self-care (01) ==
LOC: EC 03:27
DX: F10.129 Alcohol abuse with intoxication, unspecified (principal); Y90.0 Blood alcohol level of less than 20 mg/100 ml
CPT/HCPCS: 99283

== ENCOUNTER 2024-05-16 23:26 | Observation (INO) | payer OTHER ==
--- NOTE | 2024-05-16 23:49 | ED ---
Psych HPI - General Source: patient, police, RN notes reviewed Mode of arrival: ambulatory <Ginna Loza - Last Filed: 05/16/24 23:48> - General Source: patient, RN notes reviewed, old records reviewed <Jimmy Acosta - Last Filed: 05/17/24 02:17> - General Chief Complaint: Psychiatric Symptoms Stated Complaint: Suicidal Time Seen by Provider: 05/16/24 23:48 - History of Present Illness Initial Comments: 43 year old male escorted by police to the emergency department for evaluation of suicidal ideation. Patient states he has been having suicidal thoughts again. He does state he plans on cutting his wrist. He does report drinking alcohol earlier today. Last drink approximately 30 minutes prior to arrival. Patient denies any other complaints at this time. (Ginna Loza) Patient originally seen as a quick note. Is a 43-year-old male well-known to our emergency department. Was brought in by police after being petitioned for suicidal ideations. Has known history of alcohol abuse. When I speak with the patient, states he began today experiencing thoughts of wanting hurt himself. States his plan is to cut his wrist. Is currently in toxic with alcohol. Has a history of alcohol withdrawals. Has no other acute complaints at this time. Denies homicidal ideations, times complaints. Denies any visual or auditory hallucinations. Presents for further evaluation at this time.patient denies chest pain, abdominal pain, nausea, vomiting, shortness of breath. (Jimmy Acosta) - Related Data Home Medications Medication Instructions Recorded Confirmed Colchicine See Taper PO DIRECTED 05/07/24 05/07/24 Multivitamins, Thera [Multivitamin 1 tab PO DIRECTED 05/07/24 05/07/24 (formulary)] Thiamine [Vitamin B-1] 100 mg PO DIRECTED 05/07/24 05/07/24 cloNIDine HCL [Catapres] 0.1 mg PO DIRECTED 05/07/24 05/07/24 Previous Rx's Medication Instructions Recorded Acetaminophen Tab [Tylenol] 650 mg PO Q6HR PRN tab 05/04/24 Folic Acid 1 mg PO DAILY #30 tab 05/04/24 Ibuprofen [Motrin] 400 mg PO Q6HR PRN #30 tab 05/04/24 Allergies Allergy/AdvReac Type Severity Reaction Status Date / Time No Known Allergies Allergy Verified 05/16/24 23:37 Review of Systems ROS Other: All systems not noted in ROS Statement are negative. <Ginna Loza - Last Filed: 05/16/24 23:48> ROS Other: All systems not noted in ROS Statement are negative. <Jimmy Acosta - Last Filed: 05/17/24 02:17> ROS Statement: Those systems with pertinent positive or pertinent negative responses have been documented in the HPI. Review of Systems: CONST: Denies fever EYES: Denies blurry vision ENT: Denies nasal congestion C/V: Denies Chest pain RESP: Denies shortness of breath GI: Denies abdominal pain : Denies dysuria SKIN: Denies rash. MSK: Denies joint pain. NEURO: Denies headache (Jimmy Acosta) Past Medical History Past Medical History: Hypertension, Pneumonia, Seizure Disorder Additional Past Medical History / Comment(s): ETOH History of Any Multi-Drug Resistant Organisms: None Reported Past Surgical History: Joint Replacement, Orthopedic Surgery Additional Past Surgical History / Comment(s): Right leg. surgery, left leg incision and drainage for spider bite, jaw surgery 2018 Past Anesthesia/Blood Transfusion Reactions: No Reported Reaction Past Psychological History: Anxiety Smoking Status: Never smoker Past Alcohol Use History: Abuse, Daily, Heavy Past Drug Use History: None Reported - Past Family History Sister(s) Family Medical History: Diabetes Mellitus Mother Family Medical History: Diabetes Mellitus Additional Family Medical History / Comment(s): from sudhakar johnsons syndrome Father Family Medical History: Diabetes Mellitus, Myocardial Infarction ([place]) Additional Family Medical History / Comment(s): from dm complications <Ginna Loza - Last Filed: 05/16/24 23:48> General Exam Limitations: no limitations <Ginna Loza - Last Filed: 05/16/24 23:48> <Jimmy Acosta - Last Filed: 05/17/24 02:17> - General Exam Comments Initial Comments: Visual Physical Exam Vital signs reviewed General: Well-appearing, nontoxic, no acute distress. Head: Normocephalic, atraumatic Eyes: PERRLA, EOMI ENT: Airway patent Chest: Nonlabored breathing Skin: No visual rash, normal skin tone Neuro: Alert and oriented 3 Musculoskeletal: No gross abnormalities (Ginna Loza) General: Appears intoxicated with alcohol. No evidence of alcohol withdrawals at this time. HEAD: Normal with no signs of head trauma. EYES: EOMI. ENT: Hearing grossly intact. RESPIRATORY: No respiratory distress. C/V: Regular rate and rhythm. ABD: Abdomen is nondistended. EXT: No obvious deformity. SKIN: No rashes or lesions observed on exposed skin. NEURO: Alert and oriented. (Jimmy Acosta) Course Vital Signs 05/16/24 23:35 Temperature 98.2 F Pulse Rate 95 Respiratory 18 Rate Blood Pressure 113/69 O2 Sat by Pulse 97 Oximetry Medical Decision Making <Ginna Loza - Last Filed: 05/16/24 23:48> - Lab Data Result diagrams: 05/17/24 00:59 05/17/24 00:59 - EKG Data -: EKG Interpreted by Me <Jimmy Acosta - Last Filed: 05/17/24 02:17> - Medical Decision Making I performed the quick note portion of this chart. Electronically signed by Ginna Loza PA-C (Ginna Loza) Was pt. sent in by a medical professional or institution (DEVIN Woo, GRANULATOR TENDER, urgent care, hospital, or penitentiary...) When possible be specific @ -Brought in by police after being petitioned for suicidal ideations with a plan to cut himself. Did you speak to anyone other than the patient for history (EMS, parent, family, police, friend...)? What history was obtained from this source @ -No Did you review nursing and triage notes (agree or disagree)? Why? @ -I reviewed and agree with nursing and triage notes Were old charts reviewed (outside hosp., previous admission, EMS record, old EKG, old radiological studies, urgent care reports/EKG's, penitentiary records)? Report findings @ -Reviewed old charts which showed multiple visits for alcohol intoxication in the past. Differential Diagnosis (chest pain, altered mental status, abdominal pain women, abdominal pain men, vaginal bleeding, weakness, fever, dyspnea, syncope, headache, dizziness, GI bleed, back pain, seizure, CVA, palpatations, mental health, musculoskeletal)? @ -Differential Mental Health Depression, anxiety, bipolar, psychosis, schizophrenia, borderline personality, situational depression, adjustment disorder, behavioral disorder, brain tumor, malingering, substance abuse, encephalopathy, medication reaction, dementia, hypothyroidism, degenerative neurologic disorder, lupus.... This is not meant to be all-inclusive list EKG interpreted by me (3pts min.). @ -As above X-rays interpreted by me (1pt min.). @ -None done CT interpreted by me (1pt min.). @ -None done U/S interpreted by me (1pt. min.). @ -None done What testing was considered but not performed or refused? (CT, X-rays, U/S, labs)? Why? @ -None What meds were considered but not given or refused? Why? @ -None Did you discuss the management of the patient with other professionals (professionals i.e. , PA, GRANULATOR TENDER, lab, RT, psych nurse, social worker delinquency prevention, automobile body repair chief, teacher, training and development officer, assistant case manager)? Give summary @ -Spoke with admitting team, Dr. Amor of [facility] who is covering for Dr. Cho who accepted the admission. Was smoking cessation discussed for >3mins.? @ -No Was critical care preformed (if so, how long)? @ -No Were there social determinants of health that impacted care today? How? (H omelessness, low income, unemployed, alcoholism, drug addiction, transportation, low edu. Level, literacy, decrease access to med. care, [facility], rehab)? @ -No Was there de-escalation of care discussed even if they declined (Discuss DNR or withdrawal of care, Hospice)? DNR status @ -No What co-morbidities impacted this encounter? (DM, HTN, Smoking, COPD, CAD, Cancer, CVA, ARF, Chemo, Hep., AIDS, mental health diagnosis, sleep apnea, morbid obesity)? @ -Alcohol intoxication Was patient admitted / discharged? Hospital course, mention meds given and route, prescriptions, significant lab abnormalities, going to OR and other pertinent info. @ -Patient presents emergency department complaining of suicidal ideations. Is acutely intact with alcohol. Sitter ordered. Suicide precautions placed. Labs were drawn and revealed a chronic anemia with a hemoglobin of 11.6 which is stable for the patient. Within his normal range. Patient has mild hyponatremia and hypochloremia which is being treated with IV fluids. Patient has chronically elevated LFTs which are within his normal baseline. Alcohol level is elevated 435. Due to the acute intoxication with alcohol, he will be admitted to the hospitalist medicine admission with consult to psychiatry. He was in agreement this plan. Patient placed on CIWA protocol considering his history of alcohol withdrawals. Currently is not withdrawing. Consult placed to psychiatry. I spoke with the admitting physician, Dr. Amor of [facility] who is covering for Dr. Cho who accepted the admission. Undiagnosed new problem with uncertain prognosis? @ -No Drug Therapy requiring intensive monitoring for toxicity (Heparin, Nitro, Insulin, Cardizem)? @ -No Were any procedures done? @ -No Diagnosis/symptom? @ -Suicidal ideations with a plan, alcohol intoxication Acute, or Chronic, or Acute on Chronic? @ -Acute Uncomplicated (without systemic symptoms) or Complicated (systemic symptoms)? @ -Complicated Side effects of treatment? @ -No Exacerbation, Progression, or Severe Exacerbation? @ -No Poses a threat to life or bodily function? How? (Chest pain, USA, [place], pneumonia, PE, COPD, DKA, ARF, appy, cholecystitis, CVA, Diverticulitis, Homicidal, Suicidal, threat to staff... and all critical care pts) @ -Yes (Jimmy Acosta) - Lab Data Lab Results 05/17/24 05/17/24 Range/Units 00:59 00:59 WBC 5.0 (3.8-10.6) k/uL RBC 3.83 L (4.30-5.90) m/uL Hgb 11.6 L (13.0-17.5) gm/dL Hct 36.2 L (39.0-53.0) % MCV 94.5 D (80.0-100.0) fL MCH 30.2 (25.0-35.0) pg MCHC 32.0 (31.0-37.0) g/dL RDW 15.5 (11.5-15.5) % Plt Count 162 (150-450) k/uL MPV 8.9 Neutrophils % 56 % Lymphocytes % 32 % Monocytes % 6 % Eosinophils % 2 % Basophils % 1 % Neutrophils # 2.8 (1.3-7.7) k/uL Lymphocytes # 1.6 (1.0-4.8) k/uL Monocytes # 0.3 (0-1.0) k/uL Eosinophils # 0.1 (0-0.7) k/uL Basophils # 0.1 (0-0.2) k/uL Sodium 129 L (137-145) mmol/L Potassium 4.1 (3.5-5.1) mmol/L Chloride 91 L (98-107) mmol/L Carbon Dioxide 22 (22-30) mmol/L Anion Gap 16 mmol/L BUN 8 L (9-20) mg/dL Creatinine 0.68 (0.66-1.25) mg/dL Est GFR (CKD-EPI)AfAm >90 (>60 ml/min/1.73 sqM) Est GFR (CKD-EPI)NonAf >90 (>60 ml/min/1.73 sqM) Glucose 92 (74-99) mg/dL Calcium 9.0 (8.4-10.2) mg/dL Total Bilirubin 1.2 (0.2-1.3) mg/dL AST 236 H (17-59) U/L ALT 74 H (4-49) U/L Alkaline Phosphatase 142 H (38-126) U/L Total Protein 8.8 H (6.3-8.2) g/dL Albumin 4.6 (3.5-5.0) g/dL Serum Alcohol 435 H* mg/dL - EKG Data EKG Comments: 12-lead Electrocardiogram Interpretation Note EKG was reviewed and interpreted by myself. 12-lead ECG performed at 0028 is interpreted by me as revealing normal sinus rhythm at a rate of 96 beats per minute. [place] is normal. IN interval is 133 ms, QRS durations 113 ms, QTc is 420 ms.. There were no ST or T wave abnormalities to suggest myocardial ischemia or injury. R wave progression across the precordium was satisfactory. By my interpretation this EKG is non-diagnostic for acute ischemia. (Jimmy Acosta) Disposition <Ginna Loza - Last Filed: 05/16/24 23:48> Time of Disposition: 02:15 <Jimmy Acosta - Last Filed: 05/17/24 02:17> Clinical Impression: Suicidal ideation, Alcohol intoxication Disposition: ADMITTED IP TO THIS [facility] Condition: Stable Referrals: Luis Cho MD [Primary Care Provider] - 1-2 days
[2024-05-17] MEDS ORDERED: LORazepam 2 MG/ML INJ IV PRN ×2 (00:18)
[2024-05-17] MEDS: THIAMINE 100 MG/ML 2 ML VIAL IM STA (01:02)
[2024-05-17 01:17] LABS: Basophils # (A) 0.1 k/uL (0-0.2); Basophils % (A) 1 %; Eosinophils # (A) 0.1 k/uL (0-0.7); Eosinophils % (A) 2 %; HCT 36.2 % (39.0-53.0); HGB 11.6 gm/dL (13.0-17.5); Lymphocytes # (A) 1.6 k/uL (1.0-4.8); Lymphocytes % (A) 32 %; MCH 30.2 pg (25.0-35.0); Mean Platelet Volume 8.9; Monocytes # (A) 0.3 k/uL (0-1.0); Monocytes % (A) 6 %; Neutrophils # (A) 2.8 k/uL (1.3-7.7); Neutrophils % (A) 56 %; Platelet Count 162 k/uL (150-450); RBC 3.83 m/uL (4.30-5.90); RDW 15.5 % (11.5-15.5)
[2024-05-17] MEDS: SODIUM CHLORIDE 0.9% 1,000 ML IV STA (01:28)
[2024-05-17] MEDS: SODIUM CHLORIDE 0.9% 500 ML 500 ML IV STA (01:29)
[2024-05-17 01:41] LABS: ALT 74 U/L (4-49); AST 236 U/L (17-59); African American GFR (CKD) >90 (>60 ml/min/1.73 sqM); Albumin 4.6 g/dL (3.5-5.0); Alkaline Phosphatase 142 U/L (38-126); Anion Gap 16 mmol/L; Blood Urea Nitrogen 8 mg/dL (9-20); Carbon Dioxide 22 mmol/L (22-30); Chloride 91 mmol/L (98-107); Glucose 92 mg/dL (74-99); Non-African American GFR(CKD) >90 (>60 ml/min/1.73 sqM); Potassium 4.1 mmol/L (3.5-5.1); Sodium 129 mmol/L (137-145); Total Bilirubin 1.2 mg/dL (0.2-1.3); Total Protein 8.8 g/dL (6.3-8.2)
[2024-05-17 01:58] LABS: Alcohol 435 mg/dL
[2024-05-17 02:05] LABS: MCV 94.5 fL (80.0-100.0)
[2024-05-17] MEDS ORDERED: ONDANSETRON 4 MG/2 ML VIAL IVP PRN (02:15)
[2024-05-17] MEDS ORDERED: NALOXONE 0.4 MG/ML 1 ML VIAL IV PRN (02:15)
[2024-05-17] MEDS ORDERED: IBUPROFEN 400 MG TAB PO PRN (02:15)
[2024-05-17 03:29] LABS: Amphetamine Screen,Urine Not Detected (NotDetected); Barbiturate Screen,Urine Not Detected (NotDetected); Benzodiazepines Screen,Urine Not Detected (NotDetected); Cocaine Screen,Urine Not Detected (NotDetected); Methadone Screen, Urine Not Detected (NotDetected); Opiate Screen,Urine Not Detected (NotDetected); Oxycodone Screen, Urine Not Detected (NotDetected); Phencyclidine Screen,Urine Not Detected (NotDetected); Tricyclic Antidepressant,Urine Not Detected (NotDetected); Urn Cannabinoid Scrn Not Detected (NotDetected)
[2024-05-17] MEDS: PANTOPRAZOLE 40 MG/10 ML VIAL IV SCH (08:46)
--- NOTE | 2024-05-17 12:31 | P.HPIM ---
History of Present Illness 43-year-old male with multiple hospitalizations in the past for depression and suicidal ideation and alcohol abuse admitted for with similar complaints patient wanted to slit his wrists wanted to kill himself because of which she was p etitioned by police and was admitted to the hospital here patient alcohol level was around about 400 on admission. Patient did not give me much of the history but he does not feel well and he admits to suicidal ideations. Patient serum sodium is 129 AST and ALT are elevated. REVIEW OF SYSTEMS: All other systems are negative except those mentioned in the HPI PHYSICAL EXAMINATION: GENERAL: The patient is alert and oriented x3, not in any acute distress. Well developed, well nourished. HEENT: Pupils are round and equally reacting to light. EOMI. No scleral icterus. No conjunctival pallor. Normocephalic, atraumatic. No pharyngeal erythema. No thyromegaly. CARDIOVASCULAR: S1 and S2 present. No murmurs, rubs, or gallops. PULMONARY: Chest is clear to auscultation, no wheezing or crackles. ABDOMEN: Soft, nontender, nondistended, normoactive bowel sounds. No palpable organomegaly. MUSCULOSKELETAL: No joint swelling or deformity. EXTREMITIES: No cyanosis, clubbing, or pedal edema. NEUROLOGICAL: Gross neurological examination did not reveal any focal deficits. SKIN: No rashes. Assessment and plan -Alcohol intoxication: Supportive care counseling was provided -Depression suicidal ideation psychiatry evaluation Plan-alcohol withdrawal patient will be monitored and patient is on Ativan CIWA protocol -Hyponatremia hypovolemic hyponatremia patient will be started on IV fluids -Acute alcoholic hepatitis: Transaminitis expected to improve cessation of alcohol -Anxiety disorder DVT prophylaxis: Lovenox Past Medical History Past Medical History: Hypertension, Pneumonia, Seizure Disorder Additional Past Medical History / Comment(s): ETOH History of Any Multi-Drug Resistant Organisms: None Reported Past Surgical History: Joint Replacement, Orthopedic Surgery Additional Past Surgical History / Comment(s): Right leg. surgery, left leg incision and drainage for spider bite, jaw surgery 2018 Past Anesthesia/Blood Transfusion Reactions: No Reported Reaction Past Psychological History: Anxiety Smoking Status: Never smoker Past Alcohol Use History: Abuse, Daily, Heavy Past Drug Use History: None Reported - Past Family History Sister(s) Family Medical History: Diabetes Mellitus Mother Family Medical History: Diabetes Mellitus Additional Family Medical History / Comment(s): from sudhakar johnsons syndrome Father Family Medical History: Diabetes Mellitus, Myocardial Infarction ([place]) Additional Family Medical History / Comment(s): from dm complications Medications and Allergies Home Medications Medication Instructions Recorded Confirmed Type No Known Home Medications 05/17/24 05/17/24 History Allergies Allergy/AdvReac Type Severity Reaction Status Date / Time No Known Allergies Allergy Verified 05/16/24 23:37 Physical Exam Vitals: Vital Signs Temp Pulse Resp BP Pulse Ox 05/17/24 02:00 88 16 135/84 97 05/16/24 23:35 98.2 F 95 18 113/69 97 Intake and Output 05/16/24 05/17/24 05/17/24 22:59 06:59 14:59 Other: Weight 72.575 kg Results CBC & Chem 7: 05/17/24 00:59 05/17/24 00:59 Labs: Abnormal Lab Results - Last 24 Hours (Table) 05/17/24 05/17/24 Range/Units 00:59 00:59 RBC 3.83 L (4.30-5.90) m/uL Hgb 11.6 L (13.0-17.5) gm/dL Hct 36.2 L (39.0-53.0) % Sodium 129 L (137-145) mmol/L Chloride 91 L (98-107) mmol/L BUN 8 L (9-20) mg/dL AST 236 H (17-59) U/L ALT 74 H (4-49) U/L Alkaline Phosphatase 142 H (38-126) U/L Total Protein 8.8 H (6.3-8.2) g/dL Serum Alcohol 435 H* mg/dL
[2024-05-17] MEDS: SODIUM CHLORIDE 0.9% 1,000 ML IV SCH (12:35)
[2024-05-17] MEDS: LORazepam 2 MG/ML INJ IV PRN (21:48)
[2024-05-18] MEDS ORDERED: SODIUM CHLORIDE 0.9% 1,000 ML BAG ONE (00:01)
[2024-05-18 07:28] VITALS: BP 179/93; PULSE 91; RESP 19; TEMP 98.7
[2024-05-18] MEDS ORDERED: PANTOPRAZOLE 40 MG/10 ML VIAL ONE (08:54)
[2024-05-18] MEDS ORDERED: THIAMINE 100 MG TAB ONE (08:54)
[2024-05-18] MEDS ORDERED: ENOXAPARIN 40 MG/0.4 ML SYRINGE SQ ONE (08:55)
[2024-05-18] MEDS ORDERED: THIAMINE 100 MG TAB PO SCH (09:00)
[2024-05-18] MEDS ORDERED: ENOXAPARIN 40 MG/0.4 ML SYRINGE SQ SCH (09:00)
[2024-05-18] MEDS ORDERED: LORazepam 2 MG/ML INJ ONE (23:23)
[2024-05-19] MEDS ORDERED: SODIUM CHLORIDE 0.9% 1,000 ML BAG ONE (00:01)
[2024-05-19] MEDS ORDERED: PANTOPRAZOLE 40 MG/10 ML VIAL ONE (09:04)
[2024-05-19] MEDS ORDERED: LORazepam 2 MG/ML INJ ONE (09:05)
[2024-05-19] MEDS ORDERED: ENOXAPARIN 40 MG/0.4 ML SYRINGE SQ ONE (09:05)
[2024-05-19] MEDS ORDERED: THIAMINE 100 MG TAB ONE (09:05)
[2024-05-20] MEDS ORDERED: SODIUM CHLORIDE 0.9% 1,000 ML BAG ONE (00:01)
[2024-05-20] MEDS ORDERED: ESCITALOPRAM 5 MG TAB ONE (00:01)
[2024-05-20] MEDS ORDERED: LORazepam 2 MG/ML INJ ONE ×2 (00:12→09:59)
[2024-05-20] MEDS ORDERED: THIAMINE 100 MG TAB ONE (09:58)
[2024-05-20] MEDS ORDERED: PANTOPRAZOLE 40 MG/10 ML VIAL ONE (09:58)
[2024-05-20] MEDS ORDERED: ENOXAPARIN 40 MG/0.4 ML SYRINGE SQ ONE (09:58)
[2024-05-20] MEDS ORDERED: ESCITALOPRAM 20 MG TAB ONE (17:52)
[2024-05-21] MEDS ORDERED: LORazepam 2 MG/ML INJ ONE (01:23)
[2024-05-21] MEDS ORDERED: ENOXAPARIN 40 MG/0.4 ML SYRINGE SQ ONE (08:36)
[2024-05-21] MEDS ORDERED: PANTOPRAZOLE 40 MG/10 ML VIAL ONE (08:36)
[2024-05-21] MEDS ORDERED: THIAMINE 100 MG TAB ONE (08:36)
[2024-05-21] MEDS ORDERED: ONDANSETRON 4 MG/2 ML VIAL ONE (15:17)
[2024-05-22] MEDS ORDERED: traZODone HCL 50 MG TAB ONE (03:01)
[2024-05-22] MEDS ORDERED: THIAMINE 100 MG TAB ONE (08:31)
[2024-05-22] MEDS ORDERED: PANTOPRAZOLE 40 MG/10 ML VIAL ONE (08:31)
[2024-05-22] MEDS ORDERED: ENOXAPARIN 40 MG/0.4 ML SYRINGE SQ ONE (08:31)
[2024-06-10 09:31] LABS: African American GFR (CKD) >90; Anion Gap 5 mmol/L; Blood Urea Nitrogen 6 mg/dL (9-20); Calcium 9.1 mg/dL (8.4-10.2); Carbon Dioxide 26 mmol/L (22-30); Chloride 102 mmol/L (98-107); Glucose 90 mg/dL (74-99); Non-African American GFR(CKD) >90; Potassium 3.9 mmol/L (3.5-5.1); Sodium 133 mmol/L (137-145)
[2024-06-10 09:32] LABS: ALT 70 U/L (4-49); AST 218 U/L (17-59); Albumin 3.8 g/dL (3.5-5.0); Albumin/Globulin Ratio 1.1; Alkaline Phosphatase 147 U/L (38-126); Globulin 3.6 g/dL; Total Bilirubin 2.3 mg/dL (0.2-1.3); Total Protein 7.4 g/dL (6.3-8.2)
[2024-06-10 09:33] LABS: RBC 3.69 m/uL (4.30-5.90); WBC 3.9 k/uL (3.8-10.6)
[2024-06-10 09:34] LABS: HCT 36.1 % (39.0-53.0); HGB 11.2 gm/dL (13.0-17.5); Lymphocytes % (A) 26 %; MCH 30.5 pg (25.0-35.0); MCHC 31.2 g/dL (31.0-37.0); MCV 97.8 fL (80.0-100.0); Neutrophils % (A) 60.1; Platelet Count 120 k/uL (150-450)
[2024-06-10 09:35] LABS: Basophils % (A) 1 %; Eosinophils # (A) 0.1 k/uL (0-0.7); Eosinophils % (A) 3 %; Monocytes # (A) 0.3 k/uL (0-1.0); Monocytes % (A) 9 %; Neutrophils # (A) 2.4 k/uL (1.3-7.7)
== END 2024-05-22 21:27 | disposition home or self-care (01) ==
LOC: EC 23:26 → 4SSUR 05-17 02:15
PROVIDERS: ADMIT Hospitalist; ATTEND Hospitalist
DX: F10.129 Alcohol abuse with intoxication, unspecified (principal); K70.10 Alcoholic hepatitis without ascites; F32.A Depression, unspecified; F41.9 Anxiety disorder, unspecified; E87.1 Hypo-osmolality and hyponatremia; E86.1 Hypovolemia; E87.8 Other disorders of electrolyte and fluid balance, not elsewhere classified; D64.9 Anemia, unspecified; Y90.8 Blood alcohol level of 240 mg/100 ml or more; Z79.899 Other long term (current) drug therapy; Z71.41 Alcohol abuse counseling and surveillance of alcoholic; Z59.00 Homelessness unspecified
CPT/HCPCS: 82075; 36415; 93005; 80053; 85025; 80306; 80320; J2060; J3411; 96361; 96372; 96374; 96375; 96376; 99285

== ENCOUNTER 2024-05-24 00:48 | Emergency (ER) | payer OTHER | END 2024-05-24 03:45 | disposition home or self-care (01) | LOC: EC 00:48 | CPT/HCPCS: 99283 ==

== ENCOUNTER 2024-08-27 21:55 | Emergency (ER) | payer OTHER ==
[2024-08-27 22:09] VITALS: RESP 18
--- NOTE | 2024-08-27 22:16 | ED ---
Extremity Problem HPI - General Chief complaint: Extremity Problem,Nontraumatic Stated complaint: R knee pain Time Seen by Provider: 08/27/24 22:01 Source: patient, RN notes reviewed, old records reviewed Mode of arrival: wheelchair Limitations: no limitations - History of Present Illness Initial comments: This is a 43-year-old male well-known to this ER for significant alcohol intoxication coming in today for knee pain which he believes is gout flareup MD Complaint: extremity pain, joint swelling, joint pain -: days(s) Location: right, knee History of Same: Yes -: Yes arthralgia Radiation: none Severity scale (1-10): 3 Quality: aching Consistency: constant Improves with: nothing Worsens with: weight bearing Associated Symptoms: denies other symptoms - Related Data Previous Rx's Medication Instructions Recorded Indomethacin [Indocin] 50 mg PO BID #20 capsule 08/27/24 Allergies Allergy/AdvReac Type Severity Reaction Status Date / Time No Known Allergies Allergy Verified 08/27/24 22:06 Review of Systems ROS Statement: Those systems with pertinent positive or pertinent negative responses have been documented in the HPI. ROS Other: All systems not noted in ROS Statement are negative. Past Medical History Past Medical History: Hypertension, Pneumonia, Seizure Disorder Additional Past Medical History / Comment(s): ETOH History of Any Multi-Drug Resistant Organisms: None Reported Past Surgical History: Joint Replacement, Orthopedic Surgery Additional Past Surgical History / Comment(s): Right leg. surgery, left leg incision and drainage for spider bite, jaw surgery 2018 Past Anesthesia/Blood Transfusion Reactions: No Reported Reaction Past Psychological History: Anxiety Smoking Status: Never smoker Past Alcohol Use History: None Reported Past Drug Use History: None Reported - Past Family History Sister(s) Family Medical History: Diabetes Mellitus Mother Family Medical History: Diabetes Mellitus Additional Family Medical History / Comment(s): from sudhakar johnsons syndrome Father Family Medical History: Diabetes Mellitus, Myocardial Infarction ([place]) Additional Family Medical History / Comment(s): from dm complications General Exam - General Exam Comments Initial Comments: Mild edema right knee no redness Limitations: no limitations General appearance: alert, in no apparent distress Head exam: Present: atraumatic, normocephalic, normal inspection Eye exam: Present: normal appearance, PERRL, EOMI. Absent: scleral icterus, conjunctival injection, periorbital swelling ENT exam: Present: normal exam, mucous membranes moist Neck exam: Present: normal inspection. Absent: tenderness, meningismus, lymphadenopathy Respiratory exam: Present: normal lung sounds bilaterally. Absent: respiratory distress, wheezes, rales, rhonchi, stridor Cardiovascular Exam: Present: regular rate, normal rhythm, normal heart sounds. Absent: systolic murmur, diastolic murmur, rubs, gallop, clicks GI/Abdominal exam: Present: soft, normal bowel sounds. Absent: distended, tenderness, guarding, rebound, rigid Extremities exam: Present: normal inspection, full ROM, normal capillary refill. Absent: tenderness, pedal edema, joint swelling, calf tenderness Back exam: Present: normal inspection Neurological exam: Present: alert, oriented X3, CN II-XII intact Psychiatric exam: Present: normal affect, normal mood Skin exam: Present: warm, dry, intact, normal color. Absent: rash Course Vital Signs 08/27/24 08/27/24 22:06 22:59 Temperature 98.2 F 98.1 F Pulse Rate 109 H 91 Respiratory 18 18 Rate Blood Pressure 126/87 118/81 O2 Sat by Pulse 98 98 Oximetry - Reevaluation(s) Reevaluation #1: 08/27/24 22:15 Medical records reviewed Reevaluation #2: 08/27/24 22:15 Patient symptoms improved Reevaluation #3: 08/27/24 22:15 Patient informed of results questions answered Reevaluation #4: Was pt. sent in by a medical professional or institution (, PA, MACHINE CHAIN MAKER, urgent care, hospital, or half-way...) When possible be specific @ -no Did you speak to anyone other than the patient for history (EMS, parent, family, police, friend...)? What history was obtained from this source @ -no Did you review nursing and triage notes (agree or disagree)? Why? @ -agree Are old charts reviewed (outside hosp., previous admission, EMS record, old EKG, old radiological studies, urgent care reports/EKG's, half-way records)? Report findings @ -yes Differential Diagnosis (chest pain, altered mental status, abdominal pain women, abdominal pain men, vaginal bleeding, weakness, fever, dyspnea, syncope, headache, dizziness, GI bleed, back pain, seizure, CVA, palpatations, mental health, musculoskeletal)? @ -prior EKG interpreted by me (3pts min.). @ -no X-rays interpreted by me (1pt min.). @ -no CT interpreted by me (1pt min.). @ -no U/S interpreted by me (1pt. min.). @ -no What testing was considered but not performed or refused? (CT, X-rays, U/S, labs)? Why? @ -none What meds were considered but not given or refused? Why? @ -none Did you discuss the management of the patient with other professionals (professionals i.e. , PA, MACHINE CHAIN MAKER, lab, RT, psych nurse, director social, machinist apprentice wood, teacher, founder chairman and chief creative officer, case finishing machine adjuster)? Give summary @ -no Was smoking cessation discussed for >3mins.? @ -no Was critical care preformed (if so, how long)? @ -no Were there social determinants of health that impacted care today? How? (Homelessness, low income, unemployed, alcoholism, drug addiction, transportati on, low edu. Level, literacy, decrease access to med. care, group home, rehab)? @ -none Was there de-escalation of care discussed even if they declined (Discuss DNR or withdrawal of care, Hospice)? DNR status @ -no What co-morbidities impacted this encounter? (DM, HTN, Smoking, COPD, CAD, Cancer, CVA, ARF, Chemo, Hep., AIDS, mental health diagnosis, sleep apnea, morbid obesity)? @ -none Was patient admitted / discharged? Hospital course, mention meds given and route, prescriptions, significant lab abnormalities, going to OR and other pertinent info. @ - 43 male to ER for evaluation of right knee pain history of gout, patient will be prescribed indomethacin for outpatient therapy and can be discharged Discharge Undiagnosed new problem with uncertain prognosis? @ -no Drug Therapy requiring intensive monitoring for toxicity (Heparin, Nitro, Insulin, Cardizem)? @ -no Were any procedures done? @ -no Diagnosis/symptom? @ -Gouty arthritis right knee Acute, or Chronic, or Acute on Chronic? @ -Acute Uncomplicated (without systemic symptoms) or Complicated (systemic symptoms)? @ -Complicated Side effects of treatment? @ -no Exacerbation, Progression, or Severe Exacerbation? @ -exacerbation Poses a threat to life or bodily function? How? (Chest pain, [place], [place], pneumonia, PE, COPD, DKA, ARF, appy, cholecystitis, CVA, Diverticulitis, Homicidal, Suicidal, threat to staff... and all critical care pts) @ -no Medical Decision Making - Medical Decision Making 43 male to ER for evaluation of right knee pain history of gout, patient will be prescribed indomethacin for outpatient therapy and can be discharged Disposition Clinical Impression: Right knee pain, Knee effusion, Gout of right knee Disposition: HOME SELF-CARE Condition: Good Instructions (If sedation given, give patient instructions): Gout (ED) Prescriptions: Indomethacin [Indocin] 50 mg PO BID #20 capsule Is patient prescribed a controlled substance at d/c from ED?: No Referrals: Luis Cho MD [Primary Care Provider] - 1-2 days Time of Disposition: 22:40
[2024-08-27] MEDS: dexAMETHasone 2 MG TAB PO STA (22:51)
[2024-08-27] MEDS: ETODOLAC 400 MG TAB PO STA (22:52)
[2024-08-27] MEDS: HYDROmorphone 1 MG/ML 1 ML SYRINGE IM STA (22:53)
[2024-08-27 23:00] VITALS: BP 118/81; PULSE 91; TEMP 98.1
== END 2024-08-27 23:01 | disposition home or self-care (01) ==
LOC: EC 21:55
DX: M25.461 Effusion, right knee (principal); M10.9 Gout, unspecified; M17.9 Osteoarthritis of knee, unspecified
CPT/HCPCS: 99283; J8540

== ENCOUNTER 2024-09-10 00:42 | Emergency (ER) | payer OTHER ==
--- NOTE | 2024-09-10 01:09 | ED ---
Extremity Problem HPI - General Chief complaint: Extremity Problem,Nontraumatic Stated complaint: Gout Time Seen by Provider: 09/10/24 00:54 Source: patient Mode of arrival: ambulatory Limitations: no limitations - History of Present Illness Initial comments: 43-year-old male presenting chief complaint of right knee pain. Patient has history of chronic knee pain and gout. Pain started tonight. He denies any injury or trauma. No numbness tingling or weakness. He still has full range of motion and can ambulate. States that the knee feels warm and feels somewhat swollen. No fevers. No nausea or vomiting. - Related Data Previous Rx's Medication Instructions Recorded Indomethacin [Indocin] 50 mg PO BID #20 capsule 08/27/24 Ketorolac [Toradol] 10 mg PO Q6HR PRN #16 tab 09/10/24 Allergies Allergy/AdvReac Type Severity Reaction Status Date / Time No Known Allergies Allergy Verified 08/27/24 22:06 Review of Systems ROS Statement: Those systems with pertinent positive or pertinent negative responses have been documented in the HPI. ROS Other: All systems not noted in ROS Statement are negative. Past Medical History Past Medical History: Hypertension, Pneumonia, Seizure Disorder Additional Past Medical History / Comment(s): ETOH History of Any Multi-Drug Resistant Organisms: None Reported Past Surgical History: Joint Replacement, Orthopedic Surgery Additional Past Surgical History / Comment(s): Right leg. surgery, left leg incision and drainage for spider bite, jaw surgery 2018 Past Anesthesia/Blood Transfusion Reactions: No Reported Reaction Past Psychological History: Anxiety Smoking Status: Never smoker Past Alcohol Use History: None Reported Past Drug Use History: None Reported - Past Family History Sister(s) Family Medical History: Diabetes Mellitus Mother Family Medical History: Diabetes Mellitus Additional Family Medical History / Comment(s): from sudhakar johnsons syndrome Father Family Medical History: Diabetes Mellitus, Myocardial Infarction ([place]) Additional Family Medical History / Comment(s): from dm complications General Exam Limitations: no limitations General appearance: alert, in no apparent distress Head exam: Present: atraumatic, normocephalic, normal inspection Eye exam: Present: normal appearance, EOMI Neck exam: Present: normal inspection. Absent: meningismus Respiratory exam: Absent: respiratory distress Cardiovascular Exam: Present: regular rate Right Knee exam: Present: full ROM, tenderness, swelling. Absent: erythema Neurovascular tendon exam: Present: no vascular compromise Neurological exam: Present: alert, oriented X3 Psychiatric exam: Present: normal affect, normal mood Skin exam: Present: warm, dry Course Vital Signs 09/10/24 00:43 Temperature 98.2 F Pulse Rate 95 Respiratory 20 Rate Blood Pressure 133/86 O2 Sat by Pulse 100 Oximetry Medical Decision Making - Medical Decision Making Was pt. sent in by a medical professional or institution (, DEVIN, APPLICATION TECHNICIAN, urgent care, hospital, or prison...) When possible be specific @ -No Did you speak to anyone other than the patient for history (EMS, parent, family, police, friend...)? What history was obtained from this source @ -No Did you review nursing and triage notes (agree or disagree)? Why? @ -I reviewed and agree with nursing and triage notes Were old charts reviewed (outside hosp., previous admission, EMS record, old EKG, old radiological studies, urgent care reports/EKG's, prison records)? Report findings @ -No old charts were reviewed Differential Diagnosis (chest pain, altered mental status, abdominal pain women, abdominal pain men, vaginal bleeding, weakness, fever, dyspnea, syncope, headache, dizziness, GI bleed, back pain, seizure, CVA, palpatations, mental health, musculoskeletal)? @ -Differential Musculoskeletal Muscular strain, contusion, ligament sprain, fracture, arthritis, septic arthritis, bursitis, cellulitis, muscle spasm, nerve compression, DVT, arterial occlusion, herpes zoster, electrolyte abnormality, tumor.... This is not meant to be in all inclusive list EKG interpreted by me (3pts min.). @ -As above X-rays interpreted by me (1pt min.). @ -None done CT interpreted by me (1pt min.). @ -None done U/S interpreted by me (1pt. min.). @ -None done What testing was considered but not performed or refused? (CT, X-rays, U/S, labs)? Why? @ -None What meds were considered but not given or refused? Why? @ -None Did you discuss the management of the patient with other professionals (professionals i.e. , DEVIN, APPLICATION TECHNICIAN, lab, RT, psych nurse, psychotherapist social worker, police aide, teacher, workplace rehabilitation officer, director case)? Give summary @ -No Was smoking cessation discussed for >3mins.? @ -No Was critical care preformed (if so, how long)? @ -No Were there social determinants of health that impacted care today? How? (Homelessness, low income, unemployed, alcoholism, drug addiction, transportation, low edu. Level, literacy, decrease access to med. care, shelter, rehab)? @ -No Was there de-escalation of care discussed even if they declined (Discuss DNR or withdrawal of care, Hospice)? DNR status @ -No What co-morbidities impacted this encounter? (DM, HTN, Smoking, COPD, CAD, Cancer, CVA, ARF, Chemo, Hep., AIDS, mental health diagnosis, sleep apnea, morbid obesity)? @ -None Was patient admitted / discharged? Hospital course, mention meds given and route, prescriptions, significant lab abnormalities, going to OR and other pertinent info. @ -43-year-old male presenting with chief complaint of right knee pain. History of gout and chronic knee pain. On exam there is some minor tenderness and swelling as well as some warmth. Exam appears consistent with gout. No fevers, limitation of range of motion, or significant swelling to suggest infectious process. Patient will be treated for gout with Toradol and Solu- Medrol. Prescription for Toradol sent to the pharmacy. Patient is educated on today's findings. Patient is inquiring about an x-ray. I explained to the patient that unless there is a broken bone x-ray is minimally helpful in these instances. We confirmed that the patient has had no injury and x-ray would likely not show any acute process today. Patient states that he is tired of having his chronic knee pain. He is referred to orthopedics for further testing regarding his chronic pain. Follow-up with PCP. Report back to ER with any new or worsening symptoms. Discussed return parameters and answered all questions. Patient conveyed verbal understanding and agreed to the plan. I discussed this case in detail with my attending Dr. Max Undiagnosed new problem with uncertain prognosis? @ -No Drug Therapy requiring intensive monitoring for toxicity (Heparin, Nitro, Insulin, Cardizem)? @ -No Were any procedures done? @ -No Diagnosis/symptom? @ -Gout Acute, or Chronic, or Acute on Chronic? @ -Acute Uncomplicated (without systemic symptoms) or Complicated (systemic symptoms)? @ -Uncomplicated Side effects of treatment? @ -No Exacerbation, Progression, or Severe Exacerbation? @ -No Poses a threat to life or bodily function? How? (Chest pain, [place], [place], pneumonia, PE, COPD, DKA, ARF, appy, cholecystitis, CVA, Diverticulitis, Homicidal, Suicidal, threat to staff... and all critical care pts) @ -No Disposition Clinical Impression: Gout Disposition: HOME SELF-CARE Condition: Good Instructions (If sedation given, give patient instructions): Gout (ED), Low Purine Diet (ED) Additional Instructions: Follow-up with PCP. Report back to ER with new or worsening symptoms. Follow- up with orthopedics for your chronic knee pain. Do not combine ketorolac (Toradol) with other NSAIDs such as ibuprofen (Motrin) or naproxen (Aleve) Prescriptions: Ketorolac [Toradol] 10 mg PO Q6HR PRN #16 tab PRN Reason: Pain Is patient prescribed a controlled substance at d/c from ED?: No Referrals: Luis Cho MD [Primary Care Provider] - 1-2 days Nitesh Dior MD [Medical Doctor] - 1-2 days Time of Disposition: 01:02
[2024-09-10] MEDS: methylPREDNISolone SOD SUCCI 125 MG/2 ML VIAL IM ONE (01:11)
[2024-09-10] MEDS: KETOROLAC 15 MG/ML 1 ML VIAL IM STA (01:13)
[2024-09-10 01:33] VITALS: BP 132/80; PULSE 74; RESP 18; TEMP 98.1
== END 2024-09-10 01:57 | disposition home or self-care (01) ==
LOC: EC 00:42
DX: M10.9 Gout, unspecified (principal)
CPT/HCPCS: 99283; 96372 ×2; J1885; J2919

== ENCOUNTER 2025-02-16 05:50 | Emergency (ER) | payer OTHER ==
[2025-02-16 05:56] VITALS: RESP 18
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
--- NOTE | 2025-02-16 06:59 | CT ---
EXAM: CT Head Without Intravenous Contrast CLINICAL HISTORY: ITS.REASON CT Reason: pain TECHNIQUE: Axial computed tomography images of the head/brain without intravenous contrast. CTDI is 45.2 mGy and DLP is 1007 mGy-cm. This CT exam was performed using one or more of the following dose reduction techniques: automated exposure control, adjustment of the mA and/or kV according to patient size, and/or use of iterative reconstruction technique. COMPARISON: CT dated 05/02/2024. FINDINGS: Brain: Unremarkable. No hemorrhage. No significant white matter disease. No edema. Ventricles: Unremarkable. No ventriculomegaly. Bones/joints: Unremarkable. No acute fracture. Soft tissues: Unremarkable. Sinuses: Mild mucosal thickening is seen within the maxillary sinuses. Mastoid air cells: Unremarkable as visualized. No mastoid effusion. IMPRESSION: No acute intracranial findings. No intracranial hemorrhage. EXAM: CT Cervical Spine Without Intravenous Contrast CLINICAL HISTORY: ITS.REASON CT Reason: pain TECHNIQUE: Axial computed tomography images of the cervical spine without intravenous contrast. CTDI is 10.5 mGy and DLP is 234.7 mGy-cm. This CT exam was performed using one or more of the following dose reduction techniques: automated exposure control, adjustment of the mA and/or kV according to patient size, and/or use of iterative reconstruction technique. COMPARISON: CT dated 10/29/2023. FINDINGS: Vertebrae: Mild multilevel degenerative endplate and uncovertebral hypertrophy. No acute fracture. 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 No spinal canal stenosis. Soft tissues: Unremarkable. IMPRESSION: No acute findings. No evidence of fracture.
--- NOTE | 2025-02-16 07:15 | XR ---
EXAMINATION TYPE: XR hand complete 3 views LT DATE OF EXAM: 02/16/2025 6:40 AM COMPARISON: 11/17/2017 wrist CLINICAL INDICATION: Male, 44 years old with history of pain; PHH, pain FINDINGS: Mild degenerative spurring at the first CMC joint. No acute fracture, subluxation, dislocat ion. IMPRESSION: No acute osseous abnormality seen. [facility], Workstation: [facility], 02/16/2025 7:12 AM
[2025-02-16 07:40] VITALS: BP 145/89; PULSE 89; TEMP 97.7
== END 2025-02-16 07:41 | disposition home or self-care (01) ==
LOC: EC 05:50
DX: S60.222A Contusion of left hand, initial encounter (principal); S09.90XA Unspecified injury of head, initial encounter; W01.198A Fall on same level from slipping, tripping and stumbling with subsequent striking against other object, initial encounter
CPT/HCPCS: 70450; 72125; 99284